=== PATIENT | female | born 1990 | race Caucasian/White ===

== ENCOUNTER 2022-10-07 21:29 | Outpatient (REF) | payer OTHER, SELFPAY ==
[2022-10-16 14:09] LABS: Age Gdln ACOG Testing Note (.); HPV Aptima Negative (Negative); IGP, Aptima HPV, rfx 16/18,45 Note (.)
== END 2022-10-07 21:30 | disposition home or self-care (01) ==
LOC: LAB 21:29
PROVIDERS: PCP Family Medicine; Visit Provider Physician Assistant
DX: Z01.419 Encounter for gynecological examination (general) (routine) without abnormal findings (principal)
CPT/HCPCS: 87624; G0145

== ENCOUNTER 2024-02-23 08:08 | Outpatient (OUT) | payer MEDICAID, OTHER, SELFPAY ==
--- NOTE | 2024-02-23 09:07 | P.GSHP_ITS ---
History of Present Illness History of Present Illness Chief complaint: RIGHT WRIST GANGLION CYST Narrative: Patient presents for presurgical testing. Please see HPI from Dr. Koo dated February 16, 2024. Review of Systems ROS Narrative REVIEW OF SYSTEMS: Negative except as stated in HPI, ten or more systems reviewed. Constitutional: No fever, chills, weakness ENT: No sore throat or epistaxis Cardiovascular: No edema, chest pain, palpitations, or activity intolerance Respiratory: No shortness of breath, cough, or wheezing Gastrointestinal: Chronic abdominal pain, constipation, and nausea Genitourinary: No dysuria or hematuria Neurological: No numbness, tingling, weakness, or headache Psychiatric: No mood changes [facility] Medical History (Updated 02/23/24 @ 09:08 by Hawa Pantoja NP) Ganglion cyst of wrist ?M67.439 - Ganglion, unspecified wrist (ICD-10) Neurologic abnormality ?R29.818 - Other symptoms and signs involving the nervous system (ICD-10) Paresthesias ?R20.2 - Paresthesia of skin (ICD-10) Syncope ?R55 - Syncope and collapse (ICD-10) POTS (postural orthostatic tachycardia syndrome) ?G90.A - Postural orthostatic tachycardia syndrome [POTS] (ICD-10) COVID-19 long hauler ?U09.9 - Post COVID-19 condition, unspecified (ICD-10) Urinary frequency ?R35.0 - Frequency of micturition (ICD-10) Abdominal pain ?R10.9 - Unspecified abdominal pain (ICD-10) ADHD ?F90.9 - Attention-deficit hyperactivity disorder, unspecified type (ICD-10) Anemia (2016) ?D64.9 - Anemia, unspecified (ICD-10) Depression ?F32.A - Depression, unspecified (ICD-10) Anxiety ?F41.9 - Anxiety disorder, unspecified (ICD-10) COVID-19 (2020) ?U07.1 - COVID-19 (ICD-10) Vertigo ?R42 - Dizziness and giddiness (ICD-10) Migraine ?G43.909 - Migraine, unspecified, not intractable, without status migrainosus (ICD-10) Pelvic pain ?R10.2 - Pelvic and perineal pain (ICD-10) Seasonal allergies ?J30.2 - Other seasonal allergic rhinitis (ICD-10) Ureteral stone ?N20.1 - Calculus of ureter (ICD-10) Kidney stones ?N20.0 - Calculus of kidney (ICD-10) Hypertension ?I10 - Essential (primary) hypertension (ICD-10) Palpitations ?R00.2 - Palpitations (ICD-10) IBS (irritable bowel syndrome) ?K58.9 - Irritable bowel syndrome, unspecified (ICD-10) GERD (gastroesophageal reflux disease) ?K21.9 - Gastro-esophageal reflux disease without esophagitis (ICD-10) Constipation ?K59.00 - Constipation, unspecified (ICD-10) Postoperative nausea and vomiting ?R11.2 - Nausea with vomiting, unspecified (ICD-10) ?Z98.890 - Other specified postprocedural states (ICD-10) S/P extracorporeal shock wave therapy ?Z98.890 - Other specified postprocedural states (ICD-10) Surgical History (Updated 02/23/24 @ 08:46 by Hawa Pantoja NP) History of colonoscopy ?Z98.890 - Other specified postprocedural states (ICD-10) History of esophagogastroduodenoscopy (EGD) ?Z98.890 - Other specified postprocedural states (ICD-10) History of breast biopsy ?Z98.890 - Other specified postprocedural states (ICD-10) History of wisdom tooth extraction ?K08.409 - Partial loss of teeth, unspecified cause, unspecified class (ICD- 10) S/P ureteral stent placement ?Z96.0 - Presence of urogenital implants (ICD-10) History of carpal tunnel release ?Z98.890 - Other specified postprocedural states (ICD-10) History of hysterectomy ?Z90.710 - Acquired absence of both cervix and uterus (ICD-10) Family History (Updated 02/23/24 @ 08:46 by Hawa Pantoja NP) Other Family history of aneurysm Family history of breast cancer Family history of hypertension Family history of myocardial infarction Family history of renal failure Family history of seizures Social History (Updated 02/23/24 @ 08:36 by Hawa Pantoja NP) Within the past year, how often did you have a drink containing alcohol: never Score interpretation: A score less than 3 is consistent with normal alcohol consumption. Smoking status: Former smoker Non-prescribed substance use: denies use Previous occupational history: [employer] Highest level of school completed/degree received: some college, no degree Meds Home Medications and Allergies Home Medications ?Medication ?Instructions ?Recorded ?Confirmed ?Type atomoxetine 25 mg capsule 25 mg PO DAILY 02/23/24 02/23/24 History (Strattera) cholecalciferol (vitamin D3) 125 125 mcg PO DAILY 02/23/24 02/23/24 History mcg (5,000 unit) capsule coenzyme Q10 200 mg capsule (Co 200 mg PO DAILY 02/23/24 02/23/24 History Q-10) conjugated estrogens 0.9 mg tablet 0.9 mg PO DAILY 02/23/24 02/23/24 History (Premarin) hyoscyamine sulfate 0.125 mg tablet 0.125 mg PO Q4H PRN dyspepsia 02/23/24 02/23/24 History methocarbamol 500 mg tablet 500 mg PO BID PRN muscle spasm 02/23/24 02/23/24 History multivitamin (Daily Multi-Vitamin 1 tab PO DAILY 02/23/24 02/23/24 History tablet) omega 9-aoc-ltz-fish oil 1,200 mg 1 cap PO DAILY 02/23/24 02/23/24 History (144 mg-216 mg) capsule (Fish Oil) ondansetron 4 mg disintegrating 4 mg PO Q8H PRN nausea and vomiting 02/23/24 02/23/24 History tablet propranolol 60 mg capsule,24 60 mg PO Q24H 02/23/24 02/23/24 History hr,extended release vitamin b12 gummy 02/23/24 History Allergies Allergy/AdvReac Type Severity Reaction Status Date / Time adhesive tape Allergy Rash Verified 02/23/24 08:29 morphine Allergy tachycardia Verified 02/23/24 08:29 sulfamethoxazole (From Allergy Hives Verified 02/23/24 08:29 Bactrim) trimethoprim (From Bactrim) Allergy Hives Verified 02/23/24 08:29 Exam Narrative Exam Narrative: Constitutional: Awake, alert, comfortable, well-appearing, nontoxic, interactive, vital signs as charted Head: Normocephalic, atraumatic Neck: Supple, normal appearance, normal range of motion, no meningeal signs, no lymphadenopathy Respiratory: No respiratory distress, breath sounds clear Cardiovascular: Regular rate and rhythm, strong and regular heart tones Skin: No rashes or induration, no lesions, only visible skin inspected Neuro: No neurological deficits, normal sensation Psychiatric: Oriented ?3, normal affect Assessment and Plan Assessment and Plan (1) Ganglion cyst of wrist: Plan Right wrist ganglion cyst excision scheduled with Dr. Koo February 28, 2024.
== END 2024-02-23 08:09 | disposition home or self-care (01) ==
LOC: PST 08:12
PROVIDERS: PCP Family Medicine; Visit Provider Orthopaedic Surgery
DX: Z01.818 Encounter for other preprocedural examination (principal); M67.431 Ganglion, right wrist
CPT/HCPCS: G0463

== ENCOUNTER 2024-02-28 11:59 | Day surgery (SDC) | payer MEDICAID, OTHER, SELFPAY ==
[2024-02-23 09:00] VITALS: BP 124/79; PULSE 77; TEMP 36.2; O2SAT 100; BMI 23.9
--- OUTSIDE RECORDS SUMMARY | 2024-02-28 12:05 | XMS_ITS | CCD ---
Author Organization [facility] Care Team Providers Care Crystal Calibrator Name Role Phone CECI GRADY Attending Unavailable CRYS OGLESBY Referring Unavailable CECI GRADY Attending Unavailable CRYS OGLESBY Referring Unavailable Siobhan Evangelista MD Unavailable Siobhan Evangelista MD Unavailable MD Siobhan Evangelista Primary Care Provider Al MD Stanislav Hardy Admit Provider DO Padmini Moreno Attending Provider MD Liv Townsend Other Provider DO Gavin Lacey Other Provider Siobhan Evangelista MD Unavailable SARAH Mae Emergency Provider Siobhan Evangelista MD Primary Care Provider [phone] Siobhan Evangelista MD Unavailable Siobhan Evangelista MD Primary Care Provider [phone] Siobhan Evangelista Primary Care Unavailable Carlito Mae Attending Unavailable Carlito Mae Admitting Unavailable Al Stainslav Hardy Admitting Unavailab le Siobhan Evangelista Primary Care Unavailable Padmini Moreno Attending Unavailable Liv Townsend Consulting Unavailable Gavin Lacey Consulting Unavailable TONJA Charles, DR MCCANN Consulting Unavailable TONJA Charles, DR MCCANN Attending Unavailable TONJA ., DR MCCANN Admitting Unavailable TONJA Charles, DR MCCANN Primary Care Unavailable JOSH ., DR MCCORD Consulting Unavailable JOSH ., DR MCCORD Attending Unavailable JOSH ., DR MCCORD Admitting Unavailable HOY ., DR MCCANN Primary Care Unavailable LOAN SAMAYOA Unavailable MISC, DR SHANNON Attending Unavailable MISC, DR SHANNON Admitting Unavailable MISC, DR SHANNON Consulting Unavailable HOY ., DR MCCANN Primary Care Unavailable ZIEBER, DR FLACO Ryan Consulting Unavailable GLAJAMES CALLAWAY Consulting Unavailable HOY ., DR MCCANN Primary Care Unavailable MISC, DR SHANNON Attending Unavailable WEST, DR LOAN Ricardo Consulting Unavailable MISC, DR SHANNON Admitting Unavailable MISC, DR SHANNON Consulting Unavailable ZIEBER, DR FLACO Ryan Consulting Unavailable HOY ., DR MCCANN Primary Care Unavailable HOY ., DR MCCANN Consulting Unavailable HOY ., DR MCCANN Attending Unavailable HOY ., DR MCCANN Admitting Unavailable ZIEBER, DR FLACO Ryan Consulting Unavailable Siobhan Evangelista MD Unavailable Siobhan Evangelista MD Unavailable Siobhan Evangelista MD Primary Care Provider [phone] Siobhan Evangelista MD Unavailable Siobhan Evangelista MD Primary Care Provider [phone] Siobhan Evangelista MD Unavailable FLEX MORENO Attending Unavailable Siobhan Evangelista MD Primary Care Provider [phone] Irina Finley DO Unavailable Siobhan Evangelista MD Primary Care Provider [phone] MARCELA, RITA Referring Unavailable IRINA FINLEY Attending Unavailabl e TONJA, SIOBHAN M Primary Care Unavailable IRINA FINLEY Referring Unavailabl e TONJA, SIOBHAN M Primary Care Unavailable IRINA FINLEY Referring Unavailabl e MAMTAY, SIOBHAN M Primary Care Unavailable IRINA FINLEY Referring Unavailabl e IRINA FINLEY Attending Unavailabl e MAMTAY, SIOBHAN M Primary Care Unavailable BROCK WANG Attending Unavailable SELF Referring Unavailable HOY, SIOBHAN M Primary Care Unavailable LOCHAN, EITAN JORDAN Referring Unavaila ble HOY, SIOBHAN M Primary Care Unavailable LOCHAN, EITAN JORDAN Referring Unavaila ble HOY, SIOBHAN M Primary Care Unavailable SHARLENE KOHLI Attending Unavailable BROCK WANG Attending Unavailable LOCHAN, EITAN NIKKI Referring Unavaila ble HOY, SIOBHAN M Primary Care Unavailable LOCHAN, EITANJIMMY JORDAN Referring Unavaila ble HOY, SIOBHAN M Primary Care Unavailable LOCHAN, EITANJIMMY JORDAN Referring Unavaila ble HOY, SIOBHAN M Primary Care Unavailable LOCHAN, EITAN NIKKI Attending Unavaila ble HOY, SIOBHAN M Referring Unavailable HOY, SIOBHAN M Primary Care Unavailable LOCHAN, EITANJIMMY JORDAN Referring Unavaila ble HOY, SIOBHAN M Primary Care Unavailable LOCHAN, EITANJIMMY JORDAN Referring Unavaila ble HOY, SIOBHAN M Primary Care Unavailable JHOANA DAILY Attending Unavailable ORTEGA VALERA Referring Unavailable HOY, SIOBHAN M Primary Care Unavailable BRUJAMES VASQUEZ Referring Unavailable HOY, SIOBHAN M Primary Care Unavailable JAMES NOBLE Referring Unavailable JAMES ONBLE Attending Unavailable HOY, SIOBHAN M Primary Care Unavailable SELF Referring Unavailable BROCK WANG Attending Unavailable HOY, SIOBHAN M Primary Care Unavailable RITA DOUGHERTY Referring Unavailable HOY, SIOBHAN M Primary Care Unavailable MARIO FIGUEROA Attending Unavailable HOY, SIOBHAN M Referring Unavailable HOY, SIOBHAN M Primary Care Unavailable CRYS OGLESBY Referring Unavailable RENY, CRYS Perdomo Primary Care Unavailable CRYS OGLESBY Referring Unavailable RENY, CRYS Perdomo Primary Care Unavailable CRYS OGLESBY Referring Unavailable RENY, CRYS Perdomo Primary Care Unavailable CRYS OGLESBY Referring Unavailable RENY, CRYS J Primary Care Unavailable LOCARMAND, EITANJIMMY JORDAN Referring Unavaila ble HOY, SIOBHAN M Primary Care Unavailable HOY, SIOBHAN M Primary Care Unavailable AGUSTO CLARK Attending Unavailable AGUSTO CLARK Attending Unavailable AGUSTO CLARK Referring Unavailable HOY, SIOBHAN M Primary Care Unavailable HOY, SIOBHAN M Referring Unavailable HOY, SIOBHAN M Primary Care Unavailable HOY, SIOBHAN M Referring Unavailable HOY, SIOBHAN M Primary Care Unavailable HOY, SIOBHAN M Referring Unavailable HOY, SIOBHAN M Primary Care Unavailable LOCHAN, EITAN ARUNA Referring Unavaila ble HOY, SIOBHAN M Primary Care Unavailable HOY, SIOBHAN M Referring Unavailable HOY, SIOBHAN M Primary Care Unavailable Allergies Allergy Classification Reported Allergen(s) Allergy Type Date of Onset Reaction(s) Facility (2 sources) Sulfamethoxazole / Trimethoprim; Translations: [Bactrim] Drug Allergy 08-16-20 16 [facility] Repository (1 source) Sulfonamides (Antibiotic); Translations: [sulfa drugs] Propensity to adverse reactions to drug (disorder) [facility] Repository (20 sources) Sulfamethoxazole / Trimethoprim; Translations: [SULFAMETHOXAZOLE-T RIMETHOPRIM] Drug Allergy 02-26-20 16 [facility] Work Phone: (20 sources) Sulfonamides (Antibiotic); Translations: [SULFA (SULFONAMIDE ANTIBIOTICS)] Drug Allergy 02-26-20 16 [facility] Work Phone: (3 sources) Sulfamethoxazole; Translations: [sulfamethoxazole] Drug Allergy 12-12-19 [facility] (3 sources) Trimethoprim; Translations: [trimethoprim] Drug Allergy 12-12-19 [facility] (20 sources) Adhesive Tape-Silicones; Translations: [ADHESIVE TAPE-SILICONES] Drug Intolerance 01-23-20 22 [facility] (1 source) Sulfonamides (Antibiotic) Drug allergy (disorder) 01-22-20 22 [facility] Repository (1 source) Desonide Drug Allergy 11-04-19 19 [facility] Repository (20 sources) Morphine; Translations: [MORPHINE] Drug Allergy 08-04-19 23 Other: See Comments, [facility] Medic[facility] Current Medications Medication Drug Class(es) Dates Sig (Normalized) Sig (Original) aspirin 81 mg delayed release oral tablet (1 source) Platelet Aggregation Inhibitor, Nonsteroidal Anti-inflammatory Drug take 1 tablet by mouth in the morning aspirin 81 mg Take 1 tablet (81 mg total) by mouth in the morning. 30 tablet 11 Active atomoxetine 40 mg oral capsule (6 sources) Norepinephrine Reuptake Inhibitor Start: 01-24-2024 take 1 capsule by mouth once daily atomoxetine (STRATTERA) 40 mg capsule Take 40 mg by mouth once daily. 01/24/2024 Active cetirizine hydrochloride 10 mg oral capsule (1 source) Histamine-1 Receptor Antagonist End: 06-03-2023 take 1 capsule by mouth once daily Cetirizine (ZYRTEC) 10 mg cap Take 10 mg by mouth once daily. 0 06/03/2023 Discontinued (Course of therapy completed) Comment on above: Take 10 mg by mouth once daily. cyanocobalamin/junior mamide (B12 SUBLINGUAL) (12 sources) cyanocobalamin/c o bamamide (B12 SUBLINGUAL) Dissolve under the tongue. Active cyanocobalamin/c obamamide (B12 SUBLINGUAL) Dissolve under the tongue. 0 Active diphenhydrAMINE hydrochloride 25 mg oral capsule (1 source) Histamine-1 Receptor Antagonist take 2 capsules by mouth every six hours as needed diphenhydrAMINE (BENADRYL) 25 mg capsule Take 2 capsules (50 mg total) by mouth every 6 (six) hours as needed for itching. Active iv contrast (will be provided with radiology test) (6 sources) Start: 2023 End: 2023 inject 1 dose intravenously once iv contrast (will be provided with radiology test) MRI Brain Inject, intravenously, once for 1 dose.No IV access, insert saline lock prior to beginning of sedation, infusion, injection of imaging exam.Discontinue saline lock post exam. If Pt. has a central line or IVAD, may access for administration according to line specific nursing protocol.Once exam is complete flush line and de-access according to line specific nursing protocol in the MR contrast administration guidelines link 1 Each 02/07/2024 02/08/2024 Active Start: 05-29-2022 End: 05-30-2022 iv contrast (will be provide d with radiology test) MRV Brain Inject, intravenously, once for 1 dose. No IV access, insert saline lock prior to the beginning of sedation, infusion, injection of imaging exam. Discontinue saline lock post exam. If Pt. has a central line or IVAD, may access for administration according to line specific nursing protocol. Once exam is complete flush line and de-access according to line specific nursing protocol in the MR contrast administration guidelines link. 1 Each 0 05/29/2022 05/30/2022 Active Start: 05-29-2022 End: 05-30-2022 inject 1 dose intravenously once iv contrast (will be provided with radiology test) MRI Brain Inject, intravenously, once for 1 dose.No IV access, insert saline lock prior to beginning of sedation, infusion, injection of imaging exam.Discontinue saline lock post exam. If Pt. has a central line or IVAD, may access for administration according to line specific nursing protocol.Once exam is complete flush line and de-access according to line specific nursing protocol in the MR contrast administration guidelines link 1 Each 0 05/29/2022 05/30/2022 Active Start: 09-03-2021 End: 09-04-2021 iv contrast (will be provide d with radiology test) MRI CSP Inject, intravenously, once for 1 dose. No IV access, insert saline lock prior to the beginning of sedation, infusion, injection of imaging exam. Discontinue saline lock post exam. If Pt. has a central line or IVAD, may access for administration according to line specific nursing protocol. Once exam is complete flush line and de-access according to line specific nursing protocol in the MR contrast administration guidelines link. 1 Each 0 09/03/2021 09/04/2021 Active Start: 09-03-2021 End: 09-04-2021 inject 1 dose intravenously once iv contrast (will be provided with radiology test) MRI TSP Inject, intravenously, once for 1 dose. No IV access, insert saline lock prior to the beginning of sedation, infusion, injection of imaging exam. Discontinue saline lock post exam. If Pt. has a central line or IVAD, may access for administration according to line specific nursing protocol. Once exam is complete flush line and de-access according to line specific nursing protocol in the MR contrast administration guidelines link. 1 Each 0 09/03/2021 09/04/2021 Active Start: 09-03-2021 End: 09-04-2021 iv contrast (will be provide d with radiology test) MRI LSP Inject, intravenously, once for 1 dose. No IV access, insert saline lock prior to the beginning of sedation, infusion, injection of imaging exam. Discontinue saline lock post exam. If Pt. has a central line or IVAD, may access for administration according to line specific nursing protocol. Once exam is complete flush line and de-access according to line specific nursing protocol in the MR contrast administration guidelines link. 1 Each 0 09/03/2021 09/04/2021 Active Comment on above: MRI CSP Inject, intr avenously, once for 1 dose. No IV access, insert saline lock prior to the beginning of sedation, infusion, injection of imaging exam. Discontinue saline lock post exam. If Pt. has a central line or IVAD, may access for administration according to line specific nursing protocol. Once exam is complete flush line and de-access according to line specific nursing protocol in the MR contrast administration guidelines link. MRI TSP Inject, intr avenously, once for 1 dose. No IV access, insert saline lock prior to the beginning of sedation, infusion, injection of imaging exam. Discontinue saline lock post exam. If Pt. has a central line or IVAD, may access for administration according to line specific nursing protocol. Once exam is complete flush line and de-access according to line specific nursing protocol in the MR contrast administration guidelines link. MRI LSP Inject, intr avenously, once for 1 dose. No IV access, insert saline lock prior to the beginning of sedation, infusion, injection of imaging exam. Discontinue saline lock post exam. If Pt. has a central line or IVAD, may access for administration according to line specific nursing protocol. Once exam is complete flush line and de-access according to line specific nursing protocol in the MR contrast administration guidelines link. MRV Brain Inject, in travenously, once for 1 dose. No IV access, insert saline lock prior to the beginning of sedation, infusion, injection of imaging exam. Discontinue saline lock post exam. If Pt. has a central line or IVAD, may access for administration according to line specific nursing protocol. Once exam is complete flush line and de-access according to line specific nursing protocol in the MR contrast administration guidelines link. MRI Brain Inject, in travenously, once for 1 dose.No IV access, insert saline lock prior to beginning of sedation, infusion, injection of imaging exam.Discontinue saline lock post exam. If Pt. has a central line or IVAD, may access for administration according to line specific nursing protocol.Once exam is complete flush line and de-access according to line specific nursing protocol in the MR contrast administration guidelines link methocarbamol 500 mg oral tablet (15 sources) Muscle Relaxant Start: 2023 take 1 tablet by mouth every twelve hours as needed methocarbamol (ROBAXIN) 500 mg tablet Take 1 tablet by mouth two times a day as needed. 45 tablet 2 05/03/2023 Active Comment on above: Take 1 tablet by nita th two times a day as needed. methylPREDNISolone 4 mg oral tablet (1 source) Corticosteroid Start: 2023 take 1 tablet by mouth in the morning methylPREDNISolone (MEDROL, JAY,) 4 mg tablet Take 1 tablet (4 mg total) by mouth in the morning. follow package directions. 21 tablet 09/01/2023 Active nortriptyline 10 mg oral capsule (2 sources) Tricyclic Antidepressant Start: 2023 take 1 capsule by mouth once daily at bedtime nortriptyline (PAMELOR) 10 mg capsule Indications: Chronic migraine w/o aura w/o status migrainosus, not intractable Take 1 capsule by mouth daily at bedtime. 30 capsule 2 02/18/2024 Active Cgcel-8-RWX-EPA-Fish Oil (FISH OIL) 1,000 mg (120 mg-180 mg) cap (12 sources) Start: 2023 Wkiaz-9-LWY-EPA-Fish Oil (FISH OIL) 1,000 mg (120 mg-180 mg) cap 04/23/2023 Active Start: 04-23-2023 Jeqhz-6-YIK-EP A-Fish Oil (FISH OIL) 1,000 mg (120 mg-180 mg) cap ondansetron 4 mg disintegrating oral tablet (1 source) Serotonin-3 Receptor Antagonist Start: 01-19-2023 take 1 tablet by mouth every eight hours as needed for nausea and vomiting and nausea and nausea ondansetron ODT (ZOFRAN ODT) 4 mg disintegrating tablet Indications: Nausea Dissolve 1 tablet (4 mg total) on tongue every 8 (eight) hours as needed for nausea or vomiting. 60 tablet 2 01/19/2023 Active OXcarbazepine 150 mg oral tablet (20 sources) Anti-epileptic Agent Start: 12-12-2021 take 150 mg by mouth twice daily Oxcarbazepine Active 150 MG PO Twice daily 60 December 12, 2021 12:00am Start: 12-11-2021 End: 12-12-2021 take 300 mg by mouth twice daily Oxcarbazepine Discontinued 300 MG PO Twice daily December 11, 2021 12:00am December 12, 2021 3:44pm End: 05-29-2022 take 2 tablets by mouth twice daily OXcarbazepine (TRILEPTAL) 150 mg tablet Take 300 mg by mouth twice daily. 0 05/29/2022 Discontinued (Course of therapy completed) Comment on above: Take 150 mg by mouth twice daily. Take 300 mg by mouth twice daily. PROGESTERONE, BULK, MISC (1 source) PROGESTERONE, BU LK, MISC by miscellaneous route. Active 24 hr propranolol hydrochloride 60 mg extended release oral capsule (17 sources) beta-Adrenergic Shilpi Start: take 1 capsule by mouth once daily propranolol ER (INDERAL LA) 60 mg 24 hr capsule take 1 capsule by mouth every day 90 capsule 2 10/11/2023 Active Start: 05-03-2023 End: 10-02-2023 take 1 capsule by mouth once daily propranolol ER (INDERAL LA) 60 mg 24 hr capsule Take 1 capsule by mouth once daily. 30 capsule 2 07/04/2023 10/02/2023 Active Comment on above: Take [address] [facility] once daily. rizatriptan 5 mg oral tablet (1 source) Serotonin-1b and Serotonin-1d Receptor Agonist Start: 05-11-19 End: 06-03-19 24 take 1 tablet by mouth every two hours as needed rizatriptan (MAXALT) 5 mg tablet Take 1 tablet (5 mg) by mouth as needed. May repeat dose after 2 hours if needed. Maximum daily dose is 15 mg per day. 10 tablet 2 05/11/2023 06/03/2023 Discontinued (Course of therapy completed) Comment on above: Take 1 tablet (5 mg) by mouth as needed. May repeat dose after 2 hours if needed. Maximum daily dose is 15 mg per day. tiZANidine 4 mg oral tablet (20 sources) Central alpha-2 Adrenergic Agonist Start: 08-20-19 22 tiZANidine (ZANAFLEX) 4 mg tablet Take 1 tablet (4 mg total) by mouth. Taking 2 tablets qd 01/12/2022 Active Comment on above: TAKE 1/2 TO 1 (ONE-H FPC TO ONE) TABLET BY MOUTH EVERY DAY AT BEDTIME FOR 30 DAYS Take 4 mg by mouth d aily at bedtime. triamcinolone acetonide 5 mg/ml topical cream (1 source) Corticosteroid Start: 10-17-19 23 triamcinolone (KENALOG) 0.5 % cream Indications: Allergic contact dermatitis due to adhesives Apply 1 Application topically in the morning and 1 Application before bedtime. 30 g 10/16/2022 Active ubiquinol (12 sources) COQ10, UBIQUINOL , ORAL Take by mouth. Active COQ10, UBIQUINOL , ORAL Take by mouth. 0 Active zinc acetate 50 mg oral capsule (1 source) End: 06-03-2023 Zinc Acetate, Oral, 50 mg (zinc) cap Take 50 capsules by mouth once daily. 0 06/03/2023 Discontinued (Course of therapy completed) Comment on above: Take 50 capsules by mouth once daily. Completed/Discontinued Medications Medication Drug Class(es) Dates Sig (Normalized) Sig (Original) acetaminophen 325 mg / butalbital 50 mg / caffeine 40 mg oral tablet (13 sources) Barbiturate, Central Nervous System Stimulant, Methylxanthine Start: 08-14-2021 End: 01-22-2022 take 1 tablet by mouth three times daily acetaminophen 325 mg-caffeine 40 mg-butalbital 50 mg (FIORICET) per tablet Take 1 tablet by mouth three times daily. 0 08/14/2021 01/22/2022 Discontinued Start: 08-14-2021 take 1 tablet by nita th every six hours as needed acetaminophen 325 mg-caffeine 40 mg-butalbital 50 mg (FIORICET) per tablet TAKE 1 TABLET BY MOUTH EVERY 6 HOURS NEEDED FOR MIGRAINE FOR 7 DAYS 0 08/14/2021 Active Comment on above: TAKE 1 TABLET BY NITA TH EVERY 6 HOURS NEEDED FOR MIGRAINE FOR 7 DAYS Take 1 tablet by nita th three times daily. acetaminophen 325 mg / HYDROcodone bitartrate 5 mg oral tablet (20 sources) Opioid Agonist Start: 2 End: 2 take 1 tablet by mouth every six hours Hydrocodone-Acetamino phen Discontinued 1 TAB PO Q6H December 11, 2021 12:00am January 21, 2022 5:22pm End: 05-29-2022 take 1 tablet by mouth every eight hours as needed HYDROcodone-acetaminophen (NORCO) 5-325 mg per tablet Take 1 tablet by mouth every 8 hours as needed for pain. 0 05/29/2022 Discontinued (Course of therapy completed) Comment on above: Take 1 tablet by nita th every 8 hours as needed for pain. acetaZOLAMIDE 250 mg oral tablet (4 sources) Carbonic Anhydrase Inhibitor Start: 05-29-19 End: 07-13-19 take 1 tablet by mouth twice daily, then take 2 tablets by mouth twice daily acetaZOLAMIDE (DIAMOX) 250 mg tablet Take 1 tablet by mouth twice daily for 14 days, THEN 2 tablets twice daily. 148 tablet 2 05/29/2022 Active Comment on above: Take 1 tablet by nita th twice daily for 14 days, THEN 2 tablets twice daily. 24 hr buPROPion hydrochloride 150 mg extended release oral tablet (14 sources) Aminoketone End: 05-29-19 take 1 tablet by mouth once daily buPROPion XL (WELLBUTRIN XL) 150 mg 24 hr tablet Take 150 mg by mouth once daily. 0 05/29/2022 Discontinued (Course of therapy completed) Comment on above: Take 150 mg by mouth once daily. estrogens, conjugated (residential) 0.625 mg oral tablet (20 sources) Estrogen Start: 01-21-20 End: 02-02-20 take 1 tablet by mouth once daily in the morning estrogens conjugated (PREMARIN) 0.625 mg tablet Take 1 tablet by mouth every morning. 01/20/2023 02/02/2024 Discontinued (Discontinued by Patient) take 1 tablet by mouth once mitesh y PREMARIN 0.9 mg tablet Take 0.9 mg by mouth once daily. Active Comment on above: Take 1 tablet by nita th every morning. Ethinyl Estradiol / norgestimate (8 sources) Progestin, Estrogen Start: 9 End: 2 take 1 tablet by mouth once daily Norgestimate-Ethinyl Estradiol 0.18/0.215/0.25 mg-25 mcg Take 1 tablet by mouth once daily. 0 07/14/2018 12/30/2021 Discontinued (Other) Start: 07-14-2018 take 1 tablet by nita th once daily Norgestimate-Ethinyl Estradiol 0.18/0.215/0.25 mg-25 mcg Take 1 tablet by mouth once daily. 0 07/14/2018 Active Comment on above: Take 1 tablet by nita th once daily. fludrocortisone acetate 0.1 mg oral tablet (7 sources) Start: 3 End: 4 take 1 tablet by mouth twice daily fludrocortisone (FLORINEF) 0.1 mg tablet 1 tablet Orally BID for 30 days 0 03/22/2023 08/17/2023 Discontinued (Discontinued by Patient) Start: 12-29-2021 End: 02-16-2022 take 1 tablet by mouth three times daily fludrocortisone (FLORINEF) 0.1 mg tablet Take 0.1 mg by mouth three times daily. 0 12/29/2021 02/16/2022 Discontinued (Course of therapy completed) Comment on above: Take 0.1 mg by mouth three times daily. fludrocortisone oral liquid 0.1 mg/mL (CPD) (4 sources) End: take 0.1 mg by mouth twice daily fludrocortisone oral liquid 0.1 mg/mL (CPD) Take 0.1 mg by mouth two times a day. 0 08/17/2023 Discontinued (Discontinued by Patient) take 0.1 mg by mouth twice daily fludrocortisone oral liquid 0.1 mg/mL (CPD) Take 0.1 mg by mouth two times a day. 0 Active Comment on above: Take 0.1 mg by mouth two times a day. Folic Acid (7 sources) End: 02-02-2024 FOLIC ACID ORAL Take by mouth. 02/02/2024 Discontinued (Discontinued by Patient) FOLIC ACID ORAL Take by mouth. 0 Active gabapentin 300 mg oral capsule (20 sources) Anti-epileptic Agent Start: 12-12-2021 take 1 capsule by mouth three times daily gabapentin (NEURONTIN) 300 mg capsule Take 300 mg by mouth three times daily. 0 12/12/2021 Active Comment on above: Take 300 mg by mouth three times daily. ivabradine 5 mg oral tablet (18 sources) Hyperpolarization-act ivated Cyclic Nucleotide-gated Channel Shilpi Start: 02-06-2022 take 1 tablet by mouth twice daily at bedtime CORLANOR 5 mg tablet TAKE 1 TABLET BY MOUTH TWICE DAILY IN THE MORNING AND BEFORE BEDTIME 0 02/06/2022 Active Comment on above: TAKE 1 TABLET BY NITA TH TWICE DAILY IN THE MORNING AND BEFORE BEDTIME Magnesium (7 sources) End: 12-30-2021 MAGNESIUM ORAL Take 120 mg by mouth. 0 12/30/2021 Discontinued MAGNESIUM ORAL T eufemia 120 mg by mouth. 0 Active Comment on above: Take 120 mg by mouth . 24 hr metoprolol succinate 25 mg extended release oral tablet (10 sources) beta-Adrenergic Shilpi Start: 12-13-19 End: 02-17-20 take 1 tablet by mouth once daily metoprolol succinate ER (TOPROL XL) 25 mg 24 hr tablet Take 25 mg by mouth once daily. 0 12/12/2021 02/16/2022 Discontinued (Course of therapy completed) Comment on above: Take 25 mg by mouth once daily. metroNIDAZOLE 500 mg oral tablet (1 source) Nitroimidazole Antimicrobial Start: 10-10-19 End: 08-17-19 take 1 tablet by mouth three times daily metroNIDAZOLE (FLAGYL) 500 mg tablet 1 tablet Orally Three times a day for 10 0 10/09/2022 08/17/2023 Discontinued (Discontinued by Patient) midodrine hydrochloride 2.5 mg oral tablet (7 sources) alpha-Adrenergic Agonist Start: 02-03-20 midodrine (PROAMATINE) 2.5 mg tablet Take 2.5 mg by mouth as directed. When SBP 0 02/08/2023 Active End: 02-16-2022 take 1 tablet by mouth three times daily midodrine (PROAMATINE) 2.5 mg tablet Take 2.5 mg by mouth three times daily. 0 02/16/2022 Discontinued (Course of therapy completed) Comment on above: Take 2.5 mg by mouth three times daily. Take 2.5 mg by mouth as directed. When SBP <100 omeprazole 40 mg delayed release oral capsule (2 sources) Proton Pump Inhibitor Start: 01-26-20 End: 08-17-19 take 1 capsule by mouth once daily omeprazole (PRILOSEC) 40 mg capsule 1 capsule 30 minutes before morning meal Orally Once a day for 90 days 0 08/20/2022 08/17/2023 Discontinued (Discontinued by Patient) pantoprazole 40 mg delayed release oral tablet (20 sources) Proton Pump Inhibitor Start: 08-18-19 take 1 tablet by mouth once daily pantoprazole DR (PROTONIX) 40 mg tablet Take 40 mg by mouth once daily. 0 08/17/2021 Active Comment on above: Take 40 mg by mouth once daily. rimegepant 75 mg disintegrating oral tablet (20 sources) Start: 12-27-19 End: 08-17-19 take 1 tablet by mouth once daily as needed NURTEC ODT 75 mg disintegrating tablet Take 75 mg by mouth once daily as needed (Migraines). 0 12/26/2021 Active Comment on above: DISSOLVE 1 TABLET BY MOUTH ONCE DAILY Take 75 mg by mouth once daily as needed (Migraines). sertraline 50 mg oral tablet (8 sources) Serotonin Reuptake Inhibitor Start: 06-30-19 End: 12-31-19 sertraline (ZOLOFT) 50 mg tablet Take 75 mg by mouth q 12 HR. 0 06/30/2019 12/30/2021 Discontinued Comment on above: Take 75 mg by mouth q 12 HR. tamsulosin hydrochloride 0.4 mg oral capsule (5 sources) alpha-Adrenergic Shilpi Start: 06-21-19 tamsulosin ER (FLOMAX) 0.4 mg Take 0.4 mg by mouth as needed. 0 06/20/2018 Active Comment on above: Take 0.4 mg by mouth as needed. topiramate 25 mg oral tablet (5 sources) Start: 08-20-19 take 1 tablet by mouth twice daily topiramate (TOPAMAX) 25 mg tablet Take 25 mg by mouth twice daily. 0 08/19/2021 Active Comment on above: Take 25 mg by mouth twice daily. traZODone hydrochloride 100 mg oral tablet (8 sources) Serotonin Reuptake Inhibitor Start: 09-05-19 End: 12-31-19 traZODone (DESYREL) 100 mg tablet Take 50 mg by mouth once daily. SHE TAKES HALF A TABLET DAILY 0 09/05/2019 12/30/2021 Discontinued (Other) Comment on above: Take 50 mg by mouth once daily. SHE TAKES HALF A TABLET DAILY Problems Active Problems Problem Classification Problem Date Documented Da te Episodic/Chronic Abdominal hernia (1 source) Ventral hernia without obstruction or gangrene; Translations: [Ventral hernia without obstruction or gangrene] Onset: 02-11-2024 Episodic Abdominal pain (1 source) Unspecified abdominal pain; Translations: [Unspecified abdominal pain] Onset: 02-14-2024 Episodic Anxiety disorders (12 sources) Mixed anxiety and depressive disorder; Translations: [Other specified anxiety disorders] Onset: 07-25-2019 08-04-2023 Chronic Cardiac dysrhythmias (20 sources) Postural orthostatic tachycardia syndrome ; Translations: [POTS (postural orthostatic tachycardia syndrome)] Onset: 02-04-2022 Chronic Cardiac dysrhythmias (20 sources) Sinus tachycardia; Translations: [Tachycardia, unspecified] Onset: 12-11-2021 12-11-2021 Episodic Congestive heart failure; nonhypertensive (2 sources) Chronic systolic heart failure; Translations: [Chronic systolic (congestive) heart failure] Onset: 08-17-2023 02-10-2023 Chronic Disorders of lipid metabolism (20 sources) Hyperlipidemia; Translations: [Hyperlipidemia, unspecified] Onset: 06-28-2022 02-10-2023 Chronic Epilepsy; convulsions (1 source) Seizure; Translations: [Unspecified convulsions] Episodic Essential hypertension (5 sources) Elevated blood pressure; Translations: [Essential (primary) hypertension] Onset: 12-11-2021 12-11-2021 Chronic Headache; including migraine (20 sources) Refractory migraine with aura; Translations: [Migraine with aura, intractable, without status migrainosus] Onset: 08-06-2021 Chronic Headache; including migraine (4 sources) Headache; Translations: [[id number] syndrome manifesting as chronic headache] Episodic Headache; including migraine (1 source) Headache; including migraine; Translations: [Positional headache] Onset: 05-03-2023 Immunizations and screening for infectious disease (2 sources) Needs influenza immunization; Translations: [Encounter for immunization] Onset: 02-16-2024 02-16-2024 Episodic Malaise and fatigue (2 sources) Fatigue; Translations: [Chronic fatigue, unspecified] Onset: 04-20-2023 02-26-2023 Chronic Malaise and fatigue (2 sources) Fatigue; Translations: [Other post infection and related fatigue syndromes] 08-17-2023 Episodic Nervous system congenital anomalies (20 sources) Chiari malformation; Translations: [Arnold-Chiari syndrome without spina bifida or hydrocephalus] Onset: 02-10-2023 Chronic Nonmalignant breast conditions (1 source) Unspecified lump in unspecified breast; Translations: [Unspecified lump in unspecified breast] Onset: 02-22-2024 Episodic Other connective tissue disease (1 source) Unspecified symptoms and signs involving the nervous system; Translations: [Other symptoms involving nervous and musculoskeletal systems] Episodic Other connective tissue disease (1 source) Weakness of hand; Translations: [Other symptoms and signs involving the musculoskeletal system] Episodic Other female genital disorders (4 sources) Unspecified dyspareunia; Translations: [UNSPECIFIED DYSPAREUNIA] Onset: 06-03-2022 Chronic Other gastrointestinal disorders (1 source) Irritable bowel syndrome characterized by constipation; Translations: [Irritable bowel syndrome with constipation] 02-26-2023 Chronic Other gastrointestinal disorders (1 source) Irritable bowel syndrome with constipation; Translations: [Irritable bowel syndrome with constipation] Onset: 04-20-2023 Chronic Other gastrointestinal disorders (1 source) Dysphagia; Translations: [Dysphagia, unspecified] Episodic Other hereditary and degenerative nervous system conditions (1 source) Functional movement disorder; Translations: [Extrapyramidal and movement disorder, unspecified] Chronic Other infections; including parasitic (1 source) Late effects of other and unspecified infectious and parasitic diseases; Translations: [Post-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 (PASC)] 02-26-2023 Chronic Other infections; including parasitic (14 sources) Post-viral disorder; Translations: [Post-COVID syndrome] Onset: 04-21-2023 08-17-2023 Chronic Other lower respiratory disease (6 sources) Dyspnea; Translations: [Shortness of breath] 02-12-2023 Episodic Other lower respiratory disease (1 source) Cough; Translations: [Cough, unspecified type] 02-26-2023 Episodic Other nervous system disorders (1 source) Syringomyelia and syringobulbia; Translations: [Syringomyelia and syringobulbia] Chronic Other nervous system disorders (3 sources) Chiari malformation type I; Translations: [Compression of brain] Chronic Other nervous system disorders (4 sources) Compression of brain; Translations: [Compression of brain] Onset: 09-29-2021 12-12-2021 Chronic Other nervous system disorders (4 sources) Syringomyelia and syringobulbia; Translations: [SYRINGOMYELIA AND SYRINGOBULBIA] Onset: 09-12-2021 Chronic Other nervous system disorders (1 source) Poor concentration; Translations: [Attention and concentration deficit] 02-26-2023 Chronic Other nervous system disorders (2 sources) Attention and concentration deficit; Translations: [Difficulty concentrating] Onset: 04-20-2023 Chronic Other nervous system disorders (1 source) Tremor; Translations: [Tremor, unspecified] Episodic Other nervous system disorders (3 sources) Impaired cognition; Translations: [Other symptoms and signs involving cognitive functions and awareness] 02-26-2023 Episodic Other screening for suspected conditions (not mental disorders or infectious disease) (2 sources) Other abnormal and inconclusive findings on diagnostic imaging of breast; Translations: [Encounter for screening mammogram for malignant neoplasm of breast] Onset: 02-11-2024 Episodic Paralysis (20 sources) Paralysis; Translations: [Paralytic syndrome, unspecified] Onset: 01-22-2022 01-22-2022 Chronic Radha-; endo-; and myocarditis; cardiomyopathy (except that caused by tuberculosis or sexually transmitted disease) (1 source) Cardiomyopathy; Translations: [Other cardiomyopathies] 12-23-2022 Chronic Residual codes; unclassified (1 source) Memory impairment; Translations: [Other amnesia] 02-26-2023 Episodic Residual codes; unclassified (1 source) Activity intolerance; Translations: [Other general symptoms and signs] 02-26-2023 Episodic Residual codes; unclassified (1 source) Pain, unspecified; Translations: [Pain, unspecified] Onset: 02-22-2024 Episodic Spinal cord injury (13 sources) Central cord syndrome; Translations: [Central cord syndrome at unspecified level of cervical spinal cord, initial encounter] Onset: 08-04-2023 01-22-2022 Chronic Spondylosis; intervertebral disc disorders; other back problems (1 source) Other cervical disc degeneration at C6-C7 level; Translations: [OTHER CERVICAL DISC DEG C6-C7 LEVEL] Onset: 09-29-2021 Chronic Unclassified (1 source) Post-COVID syndrome; Translations: [Post-COVID syndrome] Onset: 02-02-2024 Unclassified (1 source) Other post infection and related fatigue syndromes; Translations: [Other post infection and related fatigue syndromes] Onset: 02-02-2024 Unclassified (1 source) POTS (postural orthostatic tachycardia syndrome); Translations: [POTS (postural orthostatic tachycardia syndrome)] Onset: 02-10-2023 Unclassified (1 source) Post-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 (PASC); Translations: [Post-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 (PASC)] Onset: 04-20-2023 Unclassified (1 source) Cough, unspecified type; Translations: [Cough, unspecified type] Onset: 04-20-2023 Unclassified (1 source) Headaches; Translations: [Headaches] Onset: 04-20-2023 Unclassified (1 source) Post covid-19 condition, unspecified; Translations: [Post covid-19 condition, unspecified] Onset: 04-21-2023 Past or Other Problems Problem Classification Problem Date Documented Da te Episodic/Chronic Calculus of urinary tract (12 sources) Kidney stone; Translations: [Calculus of kidney] Onset: 10-05-2022 08-04-2023 Episodic Conditions associated with dizziness or vertigo (3 sources) Orthostatic hypotension; Translations: [Dizziness and giddiness] Onset: 04-20-2023 Episodic Nonspecific chest pain (20 sources) Chest discomfort; Translations: [Other chest pain] Onset: 04-20-2023 02-26-2023 Episodic Other circulatory disease (12 sources) Elevated blood pressure; Translations: [Elevated blood-pressure reading, without diagnosis of hypertension] Onset: 12-11-2021 08-04-2023 Episodic Other circulatory disease (1 source) Other disorder of circulatory system; Translations: [Blood pressure instability] Onset: 06-03-2023 Episodic Other injuries and conditions due to external causes (4 sources) Other injury of unspecified body region, initial encounter; Translations: [OTHER INJURY UNS BODY REGION INIT] Onset: 11-14-2021 Episodic Other lower respiratory disease (1 source) Shortness of breath; Translations: [SOB (shortness of breath)] Onset: 08-27-2023 Episodic Other nervous system disorders (1 source) Anesthesia of skin; Translations: [Anesthesia of skin] Onset: 01-21-2022 Episodic Other nervous system disorders (4 sources) Other symptoms and signs involving cognitive functions and awareness; Translations: [Other signs and symptoms involving cognition] Onset: 04-20-2023 02-26-2023 Episodic Residual codes; unclassified (13 sources) History of syncope; Translations: [Personal history of other specified conditions] Onset: 06-28-2022 08-04-2023 Episodic Residual codes; unclassified (2 sources) Other amnesia; Translations: [Memory changes] Onset: 04-20-2023 Episodic Residual codes; unclassified (1 source) Other general symptoms and signs; Translations: [Activity intolerance] Onset: 04-20-2023 Episodic Spondylosis; intervertebral disc disorders; other back problems (5 sources) Cervical spine instability; Translations: [Spinal instabilities, cervical region] Onset: 04-20-2023 Episodic Syncope (20 sources) Syncope; Translations: [Syncope and collapse] Onset: 12-11-2021 12-11-2021 Episodic Results Test Name Value Interpretation Reference Range Facility MAMM SCREENING BILATERAL W C insurance verification rep 02-25-2024 MAMM SCREENING BILATERAL W CAD MAMM SCREENING BILATERAL W CAD PASTOR ALBERTS PINA 1990 [id number] EXAM: MAMM SCREENING BILATERAL W CAD, 02/11/2024 9:48 AM CLINICAL INDICATIONS: Screening, Encounter for screening mammogram for malignant neoplasm of breast COMPARISON: 01/26/2019 and 09/27/2019 TECHNIQUE: Bilateral digital tomosynthesis MLO and CC views of the breasts were obtained, with creation of synthetic 2D views. Computer aided detection was utilized. FINDINGS: The breasts are extremely dense, which lowers the sensitivity of mammography. There are no new suspicious masses, calcifications, or areas of architectural distortion. Previously biopsied fibroadenoma at 6:00 in the right breast unchanged. IMPRESSION: No mammographic evidence of malignancy. BI-RADS: BI-RADS 2 - Benign RECOMMENDATION: Routine screening mammogram at age of 40. RISK ASSESSMENT: TC Lifetime risk: 16.8%. The patient's reported personal and family medical history was used calculate their Tyrer-Cuzick lifetime risk of malignancy. Scores less than 20% are not considered high risk per ACR guidelines and patient should continue with the above recommendation. Finalized by Feliz Crockett MD on 02/25/2024 10:11 AM 2 d MAMM AT [facility] 02-18-2024 HUEN Telephone (ANGEL) PINACORDELIAFARAERICA ([id number]) 1990 F [place] Date Time Provider Department 02/18/24 IRINA FINLEY During your visit today, we recorded the following information about you: Noemí Christian 02/18/2024 10:06 AM Signed Request for medical clearance scanned into shared [employer] drive. Response to request faxed and confirmation scanned into [employer]. Allergies As of Date: 02/18/2024 Noted Allergy Reaction ADHESIVE TAPE-SILICONES 01/22/2022 2 - Rash BACTRIM (SULFAMETHOXAZOLE-TRIMETH*0 11/10/2019 4 - Hives SULFA (SULFONAMIDE ANTIBIOTICS) 11/10/2019 4 - Hives MORPHINE 08/03/2022 14 - Other: See Comments Comments: Tachycardia Date Reviewed: 02/07/2024 Reviewed by: Brock Wang PA-C - Fully Assessed Reason for Visit: Medical Clearance Request [Other] Prescriptions as of 02/18/2024 - PREMARIN 0.9 mg tablet Take 0.9 mg by mouth once daily. - atomoxetine (STRATTERA) 40 mg capsule Take 40 mg by mouth once daily. - propranolol ER (INDERAL LA) 60 mg 24 hr capsule take 1 capsule by mouth every day - cyanocobalamin/cobamamide (B12 SUBLINGUAL) Dissolve under the tongue. - COQ10, UBIQUINOL, ORAL Take by mouth. - Usfak-1-KPB-EPA-Fish Oil (FISH OIL) 1,000 mg (120 mg-180 mg) cap - methocarbamol (ROBAXIN) 500 mg tablet Take 1 tablet by mouth two times a day as needed. Problem List As Of Date 02/18/2024 Noted Resolved Paralysis (HCC) [G83.9] 01/22/2022 POTS (postural orthostatic tachycardia syndrome*02/10/2023 Syncope [R55] 02/10/2023 Hyperlipidemia LDL goal <70 [E78.5] 02/10/2023 Migraine [G43.909] 02/10/2023 Arnold-Chiari malformation (HCC) [Q07.00] 02/10/2023 Post covid-19 condition, unspecified [U09.9] 04/21/2023 Diagnosed: 08/04/2023 Sinus tachycardia [R00.0] 12/11/2021 Diagnosed: 08/04/2023 Palpitations [R00.2] 08/03/2022 Diagnosed: 08/04/2023 Hx of syncope [Z87.898] 06/28/2022 Diagnosed: 08/04/2023 Finding of above normal blood pressure [R03.0] 12/11/2021 Diagnosed: 08/04/2023 Depression with anxiety [F41.8] 07/25/2019 Diagnosed: 08/04/2023 Chest pain [R07.9] 04/23/2023 Diagnosed: 08/04/2023 Central cord syndrome (HCC) [S14.129A] 08/04/2023 Diagnosed: 08/04/2023 Calculus of kidney [N20.0] 10/05/2022 Diagnosed: 08/04/2023 Encounter Status:Closed [facility]EM[facility] PASTOR HELLER ([id number]) 1990 F [place] Date Time Provider Department 02/18/24 BROCK WANG NENMMN During your visit today, we recorded the following information about you: Brock Wang PA-C 02/18/2024 12:21 PM Signed Called to discussed new medicine nortriptyline. SE, benefits risks and instructions. Patient is aware and agrees. Allergies As of Date: 02/18/2024 Noted Allergy Reaction ADHESIVE TAPE-SILICONES 01/22/2022 2 - Rash BACTRIM (SULFAMETHOXAZOLE-TRIMETH*0 11/10/2019 4 - Hives SULFA (SULFONAMIDE ANTIBIOTICS) 11/10/2019 4 - Hives MORPHINE 08/03/2022 14 - Other: See Comments Comments: Tachycardia Date Reviewed: 02/07/2024 Reviewed by: Brock Wang PA-C - Fully Assessed Prescriptions as of 02/18/2024 - nortriptyline (PAMELOR) 10 mg capsule Take 1 capsule by mouth daily at bedtime. - PREMARIN 0.9 mg tablet Take 0.9 mg by mouth once daily. - atomoxetine (STRATTERA) 40 mg capsule Take 40 mg by mouth once daily. - propranolol ER (INDERAL LA) 60 mg 24 hr capsule take 1 capsule by mouth every day - cyanocobalamin/cobamamide (B12 SUBLINGUAL) Dissolve under the tongue. - COQ10, UBIQUINOL, ORAL Take by mouth. - Hnegf-9-LJS-EPA-Fish Oil (FISH OIL) 1,000 mg (120 mg-180 mg) cap - methocarbamol (ROBAXIN) 500 mg tablet Take 1 tablet by mouth two times a day as needed. Problem List As Of Date 02/18/2024 Noted Resolved Paralysis (HCC) [G83.9] 01/22/2022 POTS (postural orthostatic tachycardia syndrome*02/10/2023 Syncope [R55] 02/10/2023 Hyperlipidemia LDL goal <70 [E78.5] 02/10/2023 Migraine [G43.909] 02/10/2023 Arnold-Chiari malformation (HCC) [Q07.00] 02/10/2023 Post covid-19 condition, unspecified [U09.9] 04/21/2023 Diagnosed: 08/04/2023 Sinus tachycardia [R00.0] 12/11/2021 Diagnosed: 08/04/2023 Palpitations [R00.2] 08/03/2022 Diagnosed: 08/04/2023 Hx of syncope [Z87.898] 06/28/2022 Diagnosed: 08/04/2023 Finding of above normal blood pressure [R03.0] 12/11/2021 Diagnosed: 08/04/2023 Depression with anxiety [F41.8] 07/25/2019 Diagnosed: 08/04/2023 Chest pain [R07.9] 04/23/2023 Diagnosed: 08/04/2023 Central cord syndrome (HCC) [S14.129A] 08/04/2023 Diagnosed: 08/04/2023 Calculus of kidney [N20.0] 10/05/2022 Diagnosed: 08/04/2023 Encounter Status:Closed by BROCK WANG on 02/18/24 Normal [facility] XR ABDOMEN AP 1 VWon 024 XR ABDOMEN AP 1 VW XR ABDOMEN AP 1 VW XR ABDOMEN AP 1 VW HISTORY: Abdominal pain COMPARISON: None FINDINGS: 2 frontal supine images of the abdomen were obtained . Nonobstructive bowel gas pattern. No abnormal calcifications overlying the kidneys or ureters. IMPRESSION: Unremarkable abdominal radiograph. Approved by Willam Shetty DO on 02/15/2024 9:13 AM Milton Fisher have personally reviewed the image(s) and agree with and/or edited the report Finalized by Milton Onofre on 02/15/2024 10:14 AM Normal [facility] B.PERTUSSIS, IGA,IGG,IG,, SE RUM(SST)on 02-11-2024 B. pertussis, IgG Interp SEE NOTE Abnormal Negative [facility] Comment on above: Result Comment: NOTE IgG antibodies against Bordetella FHA detected, which may suggest past vaccination to Bordetella pertussis and/or infection with Bordetella species. Questionable presence of IgG antibodies against Bordetella pertussis PT detected. Recommend retesting in 2-4 weeks. PT100 (Pertussis toxin 100 IU/ml) detects high concentrations of pertussis toxin-specific antibodies associated with recent infections/vaccinations. PT (Pertussis toxin) is specific to Bordetella pertussis. FHA (Filamentous hemagglutinin) is an antigen common to multiple species of Bordetella. Performed By: #### C BCA, THYR, , , CMP #### [facility] ([id number]) [address] [place] [address] B. pertussis, IgG/FHA Positive Normal [facility] Comment on above: Performed By: #### C BCA, THYR, , , CMP #### [facility] ([id number]) [address] [place] [address] 26856 B. pertussis, IgG/PT Equivocal Normal [facility] Comment on above: Performed By: #### C BCA, THYR, , , CMP #### [facility] ([id number]) [address] [place] [address] 41615 B. pertussis, IgG/PT100 Negative Normal [facility] Comment on above: Performed By: #### C BCA, THYR, 78002-1, , CMP #### [facility] ([id number]) [address] [place] [address] 19625 B. pertussis, IgM Interp Negative Normal Negative [facility] Comment on above: Result Comment: NOTE No IgM antibodies against Bordetella FHA and PT detected. INTREPRETIVE INFORMATION: B. pertussis Antibody, IgM Immunoblot This test was developed and its performance characteristics determined by [facility]. It has not been cleared or approved by the [place] Food and Drug Administration. This test was performed in a CLIA certified laboratory and is intended for clinical purposes. Performed By: [facility] [address] [place] [id number] Tobacco Cutter: Shawn Lacey MD, PhD CLIA Number: [id number] Performed By: #### C BCA, THYR, 68832-4, , CMP #### [facility] ([id number]) [address] [place] [address] 06140 B. pertussis, IgM/FHA Negative Normal [facility] Comment on above: Performed By: #### C BCA, THYR, 32252-4, , CMP #### [facility] ([id number]) [address] [place] [address] 39758 B. pertussis, IgM/PT Negative Normal [facility] Comment on above: Performed By: #### C BCA, THYR, 64752-2, , CMP #### [facility] ([id number]) [address] [place] [address] 55162 B.PERTUSSIS IGA INT SEE NOTE Abnormal Negative [facility] Comment on above: Result Comment: NOTE Questionable presence of IgA antibodies to Bordetella FHA. Recommend retesting in 2-4 weeks. PT (Pertussis toxin) is specific to Bordetella pertussis. FHA (Filamentous hemagglutinin) is an antigen common to multiple species of Bordetella. PT (Pertussis toxin) is specific to Bordetella pertussis. FHA (Filamentous hemagglutinin) is an antigen common to multiple species of Bordetella. Performed By: #### C BCA, THYR, 65428-5, , CMP #### [facility] ([id number]) [address] [place] [address] 87822 B.PERTUSSIS,IGA/FHA Equivocal Normal [facility] Comment on above: Performed By: #### C BCA, THYR, 23935-1, , CMP #### [facility] ([id number]) [address] [place] [address] B.PERTUSSIS,IGA/PT Negative Normal [facility] Comment on above: Performed By: #### Deshaun BCA, THYR, , , CMP #### [facility] ([id number]) [address] [place] [address] 64446 CBC AND AUTO DIFFon 02-11-20 24 ABSOLUTE BASOPHIL 0.1 X10E9/L Normal 0.0-0.2 [facility] Comment on above: Performed By: #### T HYR, 56620-4, 77411-8, 27997-9, 3051-0, 5193-8, 2498-4, 42588-9, CMP, HA1C, CBCA, 6476-6 #### [facility] ([id number]) [address] [place] [address], [address] [place] [address] #### BPAGM #### [facility] ([id number]) [address] [place] [address] 88099 ABSOLUTE NEUTROPHIL 4.0 X10E9/L Normal 1.5-6.6 [facility] Comment on above: Performed By: #### T HYR, 24116-6, 24315-1, 96795-3, 3051-0, 5193-8, 2498-4, 50923-8, CMP, HA1C, CBCA, 6476-6 #### [facility] ([id number]) [address], [address] [place] [address] #### BPAGM #### [facility] ([id number]) [address] [place] [address] 97682 Basophils/100 WBC (Bld) 1.1 % Normal [facility] Comment on above: Performed By: #### T HYR, 18301-1, 66828-2, 38732-1, 3051-0, 5193-8, 2498-4, 64887-7, CMP, HA1C, CBCA, 6476-6 #### [facility] ([id number]) [address], [address] [place] [address] #### BPAGM #### [facility] ([id number]) [address] [place] [address] 49553 Eosinophils (Bld) [#/Vol] 0.2 10*3/uL Normal 0.0-0.4 [facility] Comment on above: Performed By: #### T HYR, 27136-1, 71212-9, 79670-3, 3051-0, 5193-8, 2498-4, 32844-3, CMP, HA1C, CBCA, 6476-6 #### [facility] ([id number]) [address], [address] [place] [address] #### BPAGM #### [facility] ([id number]) [address] [place] [address] 10063 Eosinophils/100 WBC (Bld) 2.9 % Normal [facility] Comment on above: Performed By: #### T HYR, 26544-4, 93243-8, 99150-8, 3051-0, 5193-8, 2498-4, 72028-7, CMP, HA1C, CBCA, 6476-6 #### [facility] ([id number]) [address], [address] [place] [address] #### BPAGM #### [facility] ([id number]) [address] [place] [address]776 Erythrocyte distribution width (RBC) [Ratio] 12.3 % Normal 11.5-15.0 [facility] Comment on above: Performed By: #### T HYR, 68411-2, 04340-6, 76827-4, 3051-0, 5193-8, 2498-4, 35228-5, CMP, HA1C, CBCA, 6476-6 #### [facility] ([id number]) [address] [facility], [address] [address] #### BPAGM #### [facility] ([id number]) [address] [place] [address] 23484 Hematocrit (Bld) [Volume fraction] 37.4 % Normal 35-47 [facility] Comment on above: Performed By: #### T HYR, 18089-5, 04663-7, 36490-4, 3051-0, 5193-8, 2498-4, 35791-2, CMP, HA1C, CBCA, 6476-6 #### [facility] ([id number]) [address], [address] [address] #### BPAGM #### [facility] ([id number]) [address] [place] [address]196 Hemoglobin (Bld) [Mass/Vol] 12.5 g/dL Normal 11.7-15.5 [facility] Comment on above: Performed By: #### T HYR, 04845-6, 29544-9, 35792-8, 3051-0, 5193-8, 2498-4, 03746-1, CMP, HA1C, CBCA, 6476-6 #### [facility] ([id number]) [address], [address] [address] #### BPAGM #### [facility] ([id number]) [address] [place] [address] 61525 Lymphocytes (Bld) [#/Vol] 2.2 10*3/uL Normal 1.0-3.5 [facility] Comment on above: Performed By: #### T HYR, 72321-0, 86657-5, 84375-1, 3051-0, 5193-8, 2498-4, 73411-9, CMP, HA1C, CBCA, 6476-6 #### [facility] ([id number]) [address] [place] [address], [address] [place] [address] #### BPAGM #### [facility] ([id number]) [address] [place] [address] Lymphocytes/100 WBC (Bld) 31.4 % Normal [facility] Comment on above: Performed By: #### T HYR, 05697-9, 10615-9, 67959-7, 3051-0, 5193-8, 2498-4, 60451-9, CMP, HA1C, CBCA, 6476-6 #### [facility] ([id number]) [address] [place] [address], [address] [place] [address] #### BPAGM #### [facility] ([id number]) [address] [place] [address] 60431 MCH (RBC) [Entitic mass] 30.9 pg Normal 27-34 [facility] Comment on above: Performed By: #### T HYR, 09889-3, 95889-6, 62684-4, 3051-0, 5193-8, 2498-4, 94078-0, CMP, HA1C, CBCA, 6476-6 #### [facility] ([id number]) [address] [place] [address], [address] [place] [address] #### BPAGM #### [facility] ([id number]) [address] [place] [address]7488 MCHC (RBC) [Mass/Vol] 33.5 g/dL Normal 32-36 [facility] Comment on above: Performed By: #### T HYR, 86676-4, 38585-9, 41668-7, 3051-0, 5193-8, 2498-4, 45395-4, CMP, HA1C, CBCA, 6476-6 #### [facility] ([id number]) [address] [place] [address], [address] [place] [address] #### BPAGM #### [facility] ([id number]) [address] [place] [address] 19035 MCV (RBC) [Entitic vol] 92 fL Normal 80-100 [facility] Comment on above: Performed By: #### T HYR, 35761-3, 77778-4, 27915-3, 3051-0, 5193-8, 2498-4, 40142-8, CMP, HA1C, CBCA, 6476-6 #### [facility] ([id number]) [address] [place] [address], [address] [address] #### BPAGM #### [facility] ([id number]) [address] [place] [address]125 Monocytes (Bld) [#/Vol] 0.5 10*3/uL Normal 0-0.9 [facility] Comment on above: Performed By: #### T HYR, 32433-2, 36721-5, 37586-3, 3051-0, 5193-8, 2498-4, 31333-9, CMP, HA1C, CBCA, 6476-6 #### [facility] ([id number]) [address] [place] [address], [address] [address] #### BPAGM #### [facility] ([id number]) [address] [place] [address]50 Monocytes/100 WBC (Bld) 7.4 % Normal [facility] Comment on above: Performed By: #### T HYR, 32160-6, 83065-8, 86325-1, 3051-0, 5193-8, 2498-4, 92788-5, CMP, HA1C, CBCA, 6476-6 #### [facility] ([id number]) [address] [facility], [address] [place] [address] #### BPAGM #### [facility] ([id number]) [address] [place] [address]36 Neutrophils/100 WBC (Bld) 57.2 % Normal [facility] Comment on above: Performed By: #### T HYR, 99076-1, 22342-8, 31969-1, 3051-0, 5193-8, 2498-4, 69261-7, CMP, HA1C, CBCA, 6476-6 #### [facility] ([id number]) [address] [facility], [address] [place] [address] #### BPAGM #### [facility] ([id number]) [address] [place] [address] 60067 Platelet mean volume (Bld) [Entitic vol] 11.9 fL Normal 7-12 [facility] Comment on above: Performed By: #### T HYR, 36162-4, 95565-6, 97984-5, 3051-0, 5193-8, 2498-4, 58360-0, CMP, HA1C, CBCA, 6476-6 #### [facility] ([id number]) [address] [place] [address], [address] [place] [address] #### BPAGM #### [facility] ([id number]) [address] [place] [address] 15473 Platelets (Bld) [#/Vol] 215 10*3/uL Normal 150-450 [facility] Comment on above: Performed By: #### T HYR, 31777-8, 09332-7, 94804-9, 3051-0, 5193-8, 2498-4, 46502-3, CMP, HA1C, CBCA, 6476-6 #### [facility] ([id number]) [address] [place] [address], [address] [place] [address] #### BPAGM #### [facility] ([id number]) [address] [place] [address]361 RBC COUNT 4.05 X10E12/L Normal 3.80-5.20 [facility] Comment on above: Performed By: #### T HYR, 53504-4, 49785-6, 12225-7, 3051-0, 5193-8, 2498-4, 27349-2, CMP, HA1C, CBCA, 6476-6 #### [facility] ([id number]) [address] [place] [address], [address] [address] #### BPAGM #### [facility] ([id number]) [address] [place] [address]75 WBC (Bld) [#/Vol] 7.0 10*3/uL Normal 4.0-11.0 [facility] Comment on above: Performed By: #### T HYR, 21147-3, 03517-7, 59593-5, 3051-0, 5193-8, 2498-4, 46260-7, CMP, HA1C, CBCA, 6476-6 #### [facility] ([id number]) [address] [place] [address], [address] [place] [address] #### BPAGM #### [facility] ([id number]) [address] [place] [address] COMPREHENSIVE METABOLIC PANE Kirby 02-11-2024 Albumin [Mass/Vol] 4.4 g/dL Normal 3.2-5.3 [facility] Comment on above: Performed By: #### C BCA, THYR, , , CMP #### [facility] ([id number]) [address] [place] [address] ALP [Catalytic activity/Vol] 47 U/L Normal 39-130 [facility] Comment on above: Performed By: #### C BCA, THYR, , , CMP #### [facility] ([id number]) [address] [place] [address] 79491 ALT [Catalytic activity/Vol] 10 U/L Normal 0-31 [facility] Comment on above: Performed By: #### C BCA, THYR, , , CMP #### [facility] ([id number]) [address] [place] [address] Anion gap [Moles/Vol] 10 mmol/L Normal 5-15 [facility] Comment on above: Performed By: #### C BCA, THYR, , , CMP #### [facility] ([id number]) [address] [place] [address] AST [Catalytic activity/Vol] 17 U/L Normal 0-41 [facility] Comment on above: Performed By: #### C BCA, THYR, , , CMP #### [facility] ([id number]) [address] [place] [address] 85104 Bilirubin [Mass/Vol] 0.4 mg/dL Normal 0.3-1.2 [facility] Comment on above: Performed By: #### C BCA, THYR, , , CMP #### [facility] ([id number]) [address] [place] [address] 11007 Calcium [Mass/Vol] 9.1 mg/dL Normal 8.5-10.5 [facility] Comment on above: Performed By: #### C BCA, THYR, , , CMP #### [facility] ([id number]) [address] [place] [address] 18346 Chloride [Moles/Vol] 103 mmol/L Normal 98-109 [facility] Comment on above: Performed By: #### C BCA, THYR, , , CMP #### [facility] ([id number]) [address] [place] [address] 54616 CO2 [Moles/Vol] 27 mmol/L Normal 22-32 [facility] Comment on above: Performed By: #### C BCA, THYR, , , CMP #### [facility] ([id number]) [address] [place] [address]74 Creatinine [Mass/Vol] 0.72 mg/dL Normal 0.40-1.00 [facility] Comment on above: Result Comment: METH OD TRACEABLE TO IDMS STANDARD Performed By: #### C BCA, THYR, , , CMP #### [facility] ([id number]) [address] [place] [address]474 eGFR (CKD-EPI) NON-RACE DEPENDENT >90 Normal >59 [facility] Comment on above: Result Comment: Reported eGFR is based on the CKD-EPI 2021 equation that does not use a race coefficient. Performed By: #### C BCA, THYR, , , CMP #### [facility] ([id number]) [address] [place] [address] 36169 Glucose [Mass/Vol] 90 mg/dL Normal 65-99 [facility] Comment on above: Performed By: #### C BCA, THYR, , , CMP #### [facility] ([id number]) [address] [place] [address]156 Potassium [Moles/Vol] 4.0 mmol/L Normal 3.5-5.0 [facility] Comment on above: Performed By: #### C BCA, THYR, , , CMP #### [facility] ([id number]) [address] [place] [address] 36313 Protein [Mass/Vol] 7.2 g/dL Normal 6.0-8.0 [facility] Comment on above: Performed By: #### C BCA, THYR, , , CMP #### [facility] ([id number]) [address] [place] [address] 68878 Sodium [Moles/Vol] 140 mmol/L Normal 134-146 [facility] Comment on above: Performed By: #### C BCA, THYR, , , CMP #### [facility] ([id number]) [address] [place] [address] 70846 Urea nitrogen [Mass/Vol] 9 mg/dL Normal 5-23 [facility] Comment on above: Performed By: #### C BCA, THYR, , , CMP #### [facility] ([id number]) [address] [place] [address] 47232 FREE T3on 02-11-2024 Free T3 [Mass/Vol] 3.00 pg/mL Normal 2.50-3.90 [facility] Comment on above: Performed By: #### C BCA, THYR, , , CMP #### [facility] ([id number]) [address] [place] [address] 51937 HBV surface Ab IA Qnon 02-10 Anti HBs quant. 6874.12 mIU/mL Normal [facility] Comment on above: Result Comment: Vacc inated: >=12mIU/mL, Positive (Immune) Unvaccinated: <8mIU/mL, Negative (Not Immune) 8-11.99 mIU/mL: Indeterminate, (Considered Not Immune) Performed By: #### C SOCO, THYR, , , CMP #### [facility] ([id number]) [address] [place] [address] 52052 HGB A1C (GLYCO-HGB)on 2023 Glucose [Mass/Vol] 100 mg/dL Normal [facility] Comment on above: Performed By: #### C SOCO, THYR, , , CMP #### [facility] ([id number]) [address] [place] [address] 53715 HbA1c (Bld) [Mass fraction] 5.1 % Normal 4.4-5.6 [facility] Comment on above: Result Comment: NOTE ADA Guidelines Result HgbA1c Normal : less than 5.7 % Prediabetes : 5.7 % to 6.4 % Diabetes : > 6.4 % Use with caution in patients with abnormal hemoglobin variants as the half-life of red blood cells and in vivo glycation rates are affected. Performed By: #### C SOCO, THYR, , , CMP #### [facility] ([id number]) [address] [place] [address] 29722 IRONon 02-11-2024 Iron [Mass/Vol] 87 ug/dL Normal 50-170 [facility] Comment on above: Performed By: #### C SOCO, THYR, , , CMP #### [facility] ([id number]) [address] [place] [address] 01969 Lipid 1996 panelon 4 Cholesterol [Mass/Vol] 203 mg/dL High 150-200 [facility] Comment on above: Performed By: #### Deshaun WAN, THYR, , , CMP #### [facility] ([id number]) [address] [place] [address] 96170 Cholesterol in HDL [Mass/Vol] 50 mg/dL Normal >39 [facility] Comment on above: Result Comment: HDL <40 mg/dL - High Risk HDL > or = 40mg/dL- Desirable HDL >60 mg/dL - Negative Risk Performed By: #### Deshaun WAN, THYR, , , CMP #### [facility] ([id number]) [address] [place] [address] 87713 Cholesterol in LDL [Mass/Vol] 125 mg/dL Normal <130 [facility] Comment on above: Result Comment: LDL <100 mg/dL - Desirable LDL >160 mg/dL - High Risk Performed By: #### Deshaun BCA, THYR, , , CMP #### [facility] ([id number]) [address] [place] [address] 84738 Cholesterol in VLDL [Mass/Vol] 28 mg/dL Normal 0-30 [facility] Comment on above: Performed By: ###Braden Meade BCA, THYR, , , CMP #### [facility] ([id number]) [address] [place] [address] 48854 CHOLESTEROL:HDL 4.1 Normal 1.0-5.0 [facility] Comment on above: Performed By: ###Braden Meade BCA, THYR, , , CMP #### [facility] ([id number]) [address] [place] [address] 32095 Triglyceride [Mass/Vol] 140 mg/dL Normal 27-150 [facility] Comment on above: Performed By: #### C BCA, THYR, , , CMP #### [facility] ([id number]) [address] [place] [address] 91818 MeV IgG IA Ql (S)on 02-11-20 RUBEOLA AB SCREEN 1.9 AI High <0.9 [facility] Comment on above: Result Comment: POSI TIVE: Antibody(IgG) detected. Indicates previous exposure to rubeola virus and immunity. Performed By: #### C BCA, THYR, , , CMP #### [facility] ([id number]) [address] [place] [address] 87667 MuV IgG IA Ql (S)on 02-11-20 MUMPS VIRUS IgG 2.5 AI High <0.9 [facility] Comment on above: Result Comment: Interpretation-------- <0.9 Negative 0.9 - 1.0 Equivocal >1.0 Positive Performed By: #### C BCA, THYR, , , CMP #### [facility] ([id number]) [address] [place] [address] 14503 Rubella virus Ab Ql (S)on RUBELLA IMMUNE IgG 1.6 AI Normal [facility] Comment on above: Result Comment: Interpretation-------- <0.8 NEGATIVE-considered Not Immune 0.8-0.9 EQUIVOCAL-consider retesting with new specimen >0.9 POSITIVE-considered Immune Performed By: #### C BCA, THYR, , , CMP #### [facility] ([id number]) [address] [place] [address] THYROID PROFILEon 02-11-2024 Free T4 [Mass/Vol] 1.00 ng/dL Normal 0.61-1.60 [facility] Comment on above: Performed By: #### C BCA, THYR, , , CMP #### [facility] ([id number]) [address] [place] [address] TSH 1.24 uIU/mL Normal 0.49-4.67 [facility] Comment on above: Performed By: #### C BCA, THYR, , , CMP #### [facility] ([id number]) [address] [place] [address] 48277 US ABDOMEN LMTD ABDOMEN WALL on 02-11-2024 US ABDOMEN LMTD ABDOMEN WALL US ABDOMEN LMTD ABDOMEN WALL US ABDOMEN LMTD ABDOMEN WALL HISTORY: Hernia, hernia abdominal, pelvic pain and lump at scar COMPARISON: CT abdomen/pelvis 05/03/2020 TECHNIQUE: Grayscale and Doppler imaging of the lower abdomen/ scar FINDINGS: No abnormalities noted in the area of concern. The demonstrated soft tissues are unremarkable. No masses or fluid collections demonstrated. IMPRESSION: * No sonographic evidence of abdominal wall hernia at the area of concern. Approved by Resident Vladimir Brandon MD on 02/11/2024 10:26 AM Les Fisher have personally reviewed the image(s) and agree with and/or edited the report Finalized by Les Greenberg on 02/11/2024 10:47 AM Normal [facility] VZV IgG IA Ql (S)on 02-11-20 24 VARICELLA IgG 1.6 AI High <0.9 [facility] Comment on above: Result Comment: Interpretation-------- <0.9 Negative 0.9 - 1.0 Equivocal >1.0 Positive Performed By: #### C BCA, THYR, 82968-7, 47305-9, CMP #### [facility] ([id number]) [address] [place] [address] CNOVon 02-02-2024 CNOV Office Visit (SYNCMN ) PASTOR HELLER ([id number]) 1990 F [place] Date Time Provider Department 02/02/24 11:45 AM IRINA FINLEY SYNN During your visit today, we recorded the following information about you: Pulse Blood pressure Weight Height 78/minute 126/80 55.3 kg 1.524 m Irina Finley DO 02/02/2024 12:58 PM [facility] [place] [facility] Department of Cardiovascular Medicine SECTION OF CARDIAC PACING and ELECTROPHYSIOLOGY OUTPATIENT VISIT DATE February 02, 2024 OUTPATIENT VISIT TYPE ESTABLISHED PRIMARY CARE PHYSICIAN: Siobhan Evangelista [address] [place] [address] CHIEF COMPLAINT: syncope HISTORY OF PRESENT ILLNESS: Ms. Heller is a 33 year old female who presents today for follow-up visit for syncope. She has a prior diagnosis of POTS following COVID (her tilt test here did not show sustained increase in HR>30 bpm and would not meet traditional criteria for POTS). She has been evaluated by both neurology and cardiology. She has been on propranolol, metoprolol, bisoprolol, ivabradine, midodrine and florinef. She had not had syncope in a year when I first saw her but was having near syncope.. 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 Her CPET was minimally reduced and consistent with cardiac deconditioning. She has been having abdominal pain for several months has an incisional bulge from her hysterectomy, saw her PCP and is planned for CT of abdomen to assess hernia, she has had constipation and not had a bowel movement in a week. she has started strattera for brain fog. CPET 08/27/23 The overall pattern is suggestive of reduced aerobic fitness due to a cardiovascular pattern of exercise limitation. Deconditioning may be a contributing factor. Echo 02/10/23 CONCLUSIONS: - Exam indication: POTS - The left ventricle is normal in size. Left ventricular systolic function is normal. EF = 63 ? 5% (2D biplane) Normal left ventricular diastolic function. - The right ventricle is normal in size. Right ventricular systolic function is normal. - There are no significant valvular abnormalities. - Estimated right ventricular systolic pressure is likely underestimated due to a weak or incomplete tricuspid regurgitation signal and is, at least, 12 mmHg consistent with normal pulmonary artery pressures. Estimated right atrial pressure is 3 mmHg based on IVC assessment. - Exam was compared with the prior echocardiographic exam performed on 01/23/2022 ([place]). There is no significant change. OS event monitor 11/02/22 Narrative Patient was monitored between October 16, 2022 through October 29, 2022. There were a total of 4 transmissions, all transmissions demonstrated sinus tachycardia with rates up to 140 beats per minute. No significant atrial or ventricular ectopy noted Tilt 03/06/22 - Overall: A postural increase in heart rate was seen that was borderline for accentuated postural tachycardia. NOTE: there was not a sustained HR >30 bpm in the first ten minutes this study is not diagnostic of POTS OSH Monitor 11/17/2021 The patient was monitored between November 17 and December 22, 2021. Recordings were made for symptoms of ?heart racing?, short of breath?, ?dizzy? and ?lightheaded?. Sinus rhythm and sinus tachycardia were noted throughout the study. There were no arrhythmias and no supraventricular or ventricular ectopy was noted. Nursing Intake: Strattera was added to combat her brain fog and has helped slightly. She declined increasing due to heart rates. She was having increased headaches as well. She denies orthopnea, PND, cough, edema or syncope. She drinks a gallon of water a day and uses liquid IV and salts her food. She does not use compression. 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 She has been having bowel and bladder issues (difficulty going and feeling like she has to pee all the time). She has not gone for a week and has abdominal pain. She has tried mineral oil, miralax and other laxatives. She used to be very regular. She has had abdominal pain for five months; the constipation started a week ago. PAST CARDIAC HISTORY: None PAST MEDICAL HISTORY Diagnosis Date Arnold-Chiari malformation (HCC) Central cord syndrome (HCC) COVID Depression Family history of seizure disorder Migraines Nephrolithiasis Ovarian cyst Post-COVID syndrome POTS (postural orthostatic tachycardia syndrome) Preeclampsia Sinus tachycardia Syncope PAST SURGICAL HISTORY Procedure Laterality Date ORAL SURGERY PROCEDURE REVISE MEDIAN N/CARPAL TUNNEL SURG VAGINAL HYSTERECTOMY for uncontrolled vagina (more content not included)... Normal [facility] CNCOon 11-01-2023 CNCO Letter Text Normal [facility] CNCOon 10-28-2023 CNCO Letter Text Normal [facility] CARDIOPULMONARY EXERCISE JANE Ton 08-27-2023 BIK36-90% PRE (L/S) 3.05 L/S [facility] RAX32-74% SUPPLEMENTAL (L/S) 3.17 L/S [facility] FET SUPPLEMENTAL (S) 7.68 S [facility] FEV1 PRE (L) 3.08 L [facility] FEV1 SUPPLEMENTAL (L) 3.10 L [facility] FEV1/FVC PRE (%) 83 % [facility] FEV1/FVC SUPPLEMENTAL (%) 83 % [facility] FVC PRE (L) 3.71 L [facility] FVC SUPPLEMENTAL (L) 3.73 L [facility] MVV (L/MIN) 95 L/MIN [facility] PEF PRE (L/S) 7.77 L/S [facility] PEF SUPPLEMENTAL (L/S) 6.74 L/S [facility] [place] [address] [place] [address] Test Date: 2023-08-27 Pat Name: PASTOR HELLER Department: Room: Gender: Female Sports Doctor: Richard Kaila : 1990 Requested By: irina finley Order Number: [id number] Reading MD: Tova Crocker MD Interpretive Statements Patient took all medications as prescribed and confirmed ate light meal. Patient is taking beta-blockers. 15 min post BP 118/69. PRE MVV is not repeatable. POST MVV is repeatable x2. Patient appeared to exercise to Max. Highest HR 177, Highest BP 166/97, Highest YOJANA Sob 9, Legs 8, Chest Pain 9. Symptoms were recreated. ATS/ERS acceptability and repeatability standards for spirometry met. ECG read by MD Mott. ABGx1. Patient chest pain after 15min was a 4 on YOJANA scale. 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 This is a maximal study as the patient reached the maximal predicted heart rate and was noted by the respiratory therapists to exercise to the maximum. A. Baseline Evaluation 1. Vitals: Baseline resting vital signs were BP 118/83, HR 83 min, O2 sat 98%. 2. Baseline ABG indicate a mild acute respiratory alkalosis. The alveolar-arterial oxygen gradient (A-aDO2) is -2 mmHg which is normal for age. 3. Baseline PFT: No obstruction/restriction is noted. Maximal voluntary ventilation (MVV) was 95 L/mn, which is reduced based on FEV1 *35-40. space fraction at rest was % (normal is < 35%). 4. Baseline EKG: Heart Rate 88. Normal sinus rhythm. QRS axis is normal. No ST or T wave changes to suggest ischemia. No pathological Q waves present. No evidence of atrial enlargement. No LVH by voltage criteria. B.Exercise Analysis: In the current study, the patient achieved a reduced work capacity = VO2 max = 24.6 ml/kg/min, (81% of VO2 max predicted); and a normal work rate = 145W, 117% predicted). Cardiovascular: 1. Anaerobic threshold = 59% of VO2 max predicted (normal >40%) indicating normal oxygen delivery and/or utilization through mid-exercise. 2. Heart Rate [place] = 5% (normal is <15%). This identifies successful attainment of the maximal predicted heart rate. 3. Estimated stroke volume (O2/pulse) = 8 mL/BT (85% of predicted maximum), indicating adequate stroke volume response to peak exercise. 4. VO2-Workslope = 7.2 ml/min/watt is slightly reduced (normal = 10 +/- 1.5 ml/min/watt) 5. EKG at peak exercise: Sinus tachycardic rhythm, 182 /min. QRS axis is normal. No signs of ischemia identified. 6. Blood pressure at peak exercise (BP = 166/97), revealing a normal blood pressure response to exercise. Respiratory: 1. O2 saturation was 98% at peak exercise. 2. ABG were not obtained at peak exercise. 3. Tidal volume (VT/FVC) was 46% at end exercise, with an appropriate exercise related increase in respiratory rate (38/min) indicating a normal pattern of respiration at peak exercise. 4. The ventilatory equivalent for carbon dioxide (VE/VCO2) was 35 (normal 25-40), showing normal space ventilation. space fraction was appropriately reduced at peak exercise to 18% (normal <25%). 5. Breathing reserve at end exercise = 32%; 30.2 L/minute was normal, i.e., not exercise limiting. (Normal limits are >30% and >15 L/min) 6. Spirometry post-exercise revealed values that were unchanged compared to baseline. Post exercise flow-volume loops show no change from normal baseline. C. Summary: In summary, in the current exercise study, the patient achieved a mildly reduced work capacity = VO2 max = 24.6 ml/kg/min, (81% of VO2 max predicted); and a normal work rate = 145W, 117% predicted). - The evidence for a cardiovascular pattern of limitation includes: an accelerated heart rate response to exercise and low VO2/Workslope. The latter may identify increased anaerobic work performed during exercise, a marker of cardiovascular dysfunction. - Evidence for respiratory constraints to exercise include: a relatively low MVV based on FEV1 is FEV1*35 or 40 which may potentially reflect thoracic cavity restriction, neuromuscular weakness, or dynamic hyperinflation. However, this was not limiting the exercise and an adequate respiratory reserve is noted. The overall pattern is suggestive of reduced aerobic fitness due to a cardiovascular pattern of exercise limitation. Deconditioning may be a contributing factor. NOTE: Exercise tech staff added the following: Fami (more content not included)... PULMONARY FUNCTION LAB [facility] CNOVon 08-27-2023 CNOV Office Visit (PULBMN ) PASTOR HELLER ([id number]) 1990 F U[place] Date Time Provider Department 08/27/23 8:00 AM PULM FCT LAB 3- A110 PULBMN During your visit today, we recorded the following information about you: Richard Alonso, HERON 08/27/2023 9:54 AM Signed PULM FUNCTION SMARTBLOCK: Provider: Irina Finley, Assisting Tech: Mynor Zamudio, CHECK PROCESSING CLERK AB CPET: 1 Referring Provider: IRINA FINLEY [[id number]] Allergies As of Date: 08/27/2023 Noted Allergy Reaction ADHESIVE TAPE-SILICONES 01/22/2022 2 - Rash BACTRIM (SULFAMETHOXAZOLE-TRIMETH*0 11/10/2019 4 - Hives SULFA (SULFONAMIDE ANTIBIOTICS) 11/10/2019 4 - Hives MORPHINE 08/03/2022 14 - Other: See Comments Comments: Tachycardia Date Reviewed: 08/17/2023 Reviewed by: Daxa Ascencio, EDUARDO - Fully Assessed Reason for Visit: Spirometry [191] Primary Visit Diagnosis:SOB (shortness of breath) [R06.02] Order(s):CARDIOPULMONARY EXERCISE TEST [[id number]] Order #: [id number]. #:[id number]-CARDIOSERVER [id number]: 1 Prescriptions as of 08/27/2023 - cyanocobalamin/cobamamide (B12 SUBLINGUAL) Dissolve under the tongue. - COQ10, UBIQUINOL, ORAL Take by mouth. - FOLIC ACID ORAL Take by mouth. - Jvang-6-AKE-EPA-Fish Oil (FISH OIL) 1,000 mg (120 mg-180 mg) cap - propranolol ER (INDERAL LA) 60 mg 24 hr capsule Take 1 capsule by mouth once daily. - methocarbamol (ROBAXIN) 500 mg tablet Take 1 tablet by mouth two times a day as needed. - estrogens conjugated (PREMARIN) 0.625 mg tablet Take 1 tablet by mouth every morning. Problem List As Of Date 08/27/2023 Noted Resolved Paralysis (HCC) [G83.9] 01/22/2022 POTS (postural orthostatic tachycardia syndrome*02/10/2023 Syncope [R55] 02/10/2023 Hyperlipidemia LDL goal <70 [E78.5] 02/10/2023 Migraine [G43.909] 02/10/2023 Arnold-Chiari malformation (HCC) [Q07.00] 02/10/2023 Post covid-19 condition, unspecified [U09.9] 04/21/2023 Sinus tachycardia [R00.0] 12/11/2021 Palpitations [R00.2] 08/03/2022 Hx of syncope [Z87.898] 06/28/2022 Finding of above normal blood pressure [R03.0] 12/11/2021 Depression with anxiety [F41.8] 07/25/2019 Chest pain [R07.9] 04/23/2023 Central cord syndrome (HCC) [S14.129A] 08/04/2023 Calculus of kidney [N20.0] 10/05/2022 Encounter Status:Closed by RICHARD ALONSO on 08/27/23 [facility] Delfina 08-24-2023 CNPN Telephone (CINTIA) PASTOR HELLER ([id number]) 1990 F UPA Date Time Provider Department 08/24/23 LAUTERBACH, CRISTY PULLMN During your visit today, we recorded the following information about you: Cristy Dawkins, CHECK PROCESSING CLERK 08/24/2023 4:16 PM Signed Spoke with pt re: CPET scheduled 08/27/23 at 8:00am . Pt states She does not wear home oxygen and has no orthopedic limitations to exercise. Pt does (YOGA and resistance )exercise. Explained that ABGs would be drawn during the test. Informed patient to continue using regular medications as directed and to eat a light meal prior to the appointment. Pt also advised to wear comfortable clothes and shoes suitable for exercise. Pt verbalized understanding. Allergies As of Date: 08/24/2023 Noted Allergy Reaction ADHESIVE TAPE-SILICONES 01/22/2022 2 - Rash BACTRIM (SULFAMETHOXAZOLE-TRIMETH*0 11/10/2019 4 - Hives SULFA (SULFONAMIDE ANTIBIOTICS) 11/10/2019 4 - Hives MORPHINE 08/03/2022 14 - Other: See Comments Comments: Tachycardia Date Reviewed: 08/17/2023 Reviewed by: Daxa Ascencio RN - Fully Assessed Reason for Visit: Appointment [186] Prescriptions as of 08/24/2023 - cyanocobalamin/cobamamide (B12 SUBLINGUAL) Dissolve under the tongue. - COQ10, UBIQUINOL, ORAL Take by mouth. - FOLIC ACID ORAL Take by mouth. - Eqaxm-9-IZN-EPA-Fish Oil (FISH OIL) 1,000 mg (120 mg-180 mg) cap - propranolol ER (INDERAL LA) 60 mg 24 hr capsule Take 1 capsule by mouth once daily. - methocarbamol (ROBAXIN) 500 mg tablet Take 1 tablet by mouth two times a day as needed. - estrogens conjugated (PREMARIN) 0.625 mg tablet Take 1 tablet by mouth every morning. Problem List As Of Date 08/24/2023 Noted Resolved Paralysis (HCC) [G83.9] 01/22/2022 POTS (postural orthostatic tachycardia syndrome*02/10/2023 Syncope [R55] 02/10/2023 Hyperlipidemia LDL goal <70 [E78.5] 02/10/2023 Migraine [G43.909] 02/10/2023 Arnold-Chiari malformation (HCC) [Q07.00] 02/10/2023 Post covid-19 condition, unspecified [U09.9] 04/21/2023 Sinus tachycardia [R00.0] 12/11/2021 Palpitations [R00.2] 08/03/2022 Hx of syncope [Z87.898] 06/28/2022 Finding of above normal blood pressure [R03.0] 12/11/2021 Depression with anxiety [F41.8] 07/25/2019 Chest pain [R07.9] 04/23/2023 Central cord syndrome (HCC) [S14.129A] 08/04/2023 Calculus of kidney [N20.0] 10/05/2022 Encounter Status:Closed by CRISTY DAWKINS on 08/24/23 Normal [facility] CNOVon 08-17-2023 CNOV Office Visit (SYNCMN ) PASTOR HELLER ([id number]) 1990 F [place] Date Time Provider Department 08/17/23 10:00 AM IRINA FINLEY SYNN During your visit today, we recorded the following information about you: Weight Height 58.1 kg 1.524 m Irina Finley, 08/17/2023 1:01 PM Signed [facility] [place] [facility] Department of Cardiovascular Medicine SECTION OF CARDIAC PACING and ELECTROPHYSIOLOGY OUTPATIENT VISIT DATE August 17, 2023 OUTPATIENT VISIT TYPE CONSULTATION PRIMARY CARE PHYSICIAN: Siobhan Evangelista [address] [place] [address] REFERRING PHYSICIAN Rita Dougherty [address] [facility] [address] CHIEF COMPLAINT: syncope HISTORY OF PRESENT ILLNESS: Cardiac consultation at the request of Dr. Rita Dougherty. A copy of this consultation note will be provided to the requesting physician by way of shared Medical record or letter to requesting physician via US mail. Ms. Heller is a 32 year old female who is seen today for an opinion regarding syncope. The notes indicate a prior diagnosis of POTS following COVID infection. Her tilt test here was not consistent with POTS however? She has seen neurology as well as Dr. Elena and Dr Dougherty from cardiology. She has been on propranolol, metoprolol, bisoprolol, ivabradine, midodrine and florinef. She had preeclampsia during , her BP normalized after starting propranolol She has not had syncope for about a year but continues to have near syncope. She has been having headaches, mild episodic chest pain, she had been having trouble focusing and with memory. Has fatique. She had COVID early 2020 and a second bout early 2021. She relates shortness of breath all the time, is aggravated with talking for several minutes, she has to stop at the top of a flight of stairs to adjust. . Echo 02/10/23 CONCLUSIONS: - Exam indication: POTS - The left ventricle is normal in size. Left ventricular systolic function is normal. EF = 63 ? 5% (2D biplane) Normal left ventricular diastolic function. - The right ventricle is normal in size. Right ventricular systolic function is normal. - There are no significant valvular abnormalities. - Estimated right ventricular systolic pressure is likely underestimated due to a weak or incomplete tricuspid regurgitation signal and is, at least, 12 mmHg consistent with normal pulmonary artery pressures. Estimated right atrial pressure is 3 mmHg based on IVC assessment. - Exam was compared with the prior echocardiographic exam performed on 01/23/2022 ([place]). There is no significant change. OS event monitor 11/02/22 Narrative Patient was monitored between October 16, 2022 through October 29, 2022. There were a total of 4 transmissions, all transmissions demonstrated sinus tachycardia with rates up to 140 beats per minute. No significant atrial or ventricular ectopy noted Tilt 03/06/22 - Overall: A postural increase in heart rate was seen that was borderline for accentuated postural tachycardia. NOTE: there was not a sustained HR >30 bpm in the first ten minutes this study is not diagnostic of POTS OSH Monitor 11/17/2021 The patient was monitored between November 17 and December 22, 2021. Recordings were made for symptoms of ?heart racing?, short of breath?, ?dizzy? and ?lightheaded?. Sinus rhythm and sinus tachycardia were noted throughout the study. There were no arrhythmias and no supraventricular or ventricular ectopy was noted. Nursing Intake: Ms. Heller is a 32 year old female who is seen today for syncope. She had COVID in April of 2020. She reportedly was diagnosed with POTS after a covid infection though her tilt table test largely ruled this out. She has been on multiple medications including beta blockers (metoprolol, bisoprolol, propranolol), midodrine, florinef, and ivabradine. She follows with neurology and was doing well on florinef and propranolol at the time of her last visit in May. Her first syncopal episode was in 2020. They occurred every 2-3 weeks. She had a prodrome of flushing, hazy vision and loss, and ringing in the ears. She reports she would have two to three episodes when this would happen. She would pass out, fall to the floor, come to and a few minutes later, despite still being seated, she would lose consciousness again. She believe she was out less than a minute. These seemed to be episodic. She would have them for a few days and then be fine for a few weeks. She presents to discuss the syncopal episodes she was having. Over the past year she has only had near syncopal episodes 2-3 times a month but has learned to recognize her triggers. These often happen after exertion. Her heart starts to race and she feels like her chest is going to explode and her ears ring. S (more content not included)... Normal [facility] ECG COMPLETEon 08-17-2023 ECG COMPLETE Ventricular Rate : 6 8 BPM Atrial Rate : 68 BPM P-R Interval : 156 ms QRS Duration : 80 ms Q-T Interval : 378 ms QTC Calculation(Bazett) : 401 ms Calculated P [place] : 53 degrees Calculated R [place] : 32 degrees Calculated T [place] : 36 degrees NORMAL SINUS RHYTHM NORMAL ECG Confirmed by MD ARANA TAMANNA ([id number]) on 08/19/2023 11:47:53 AM NAME : PASTOR HELLER PID : [id number] : 1990 Gender : Female Race : Unknown ORD : [id number] Procedure Date : Aug 17 2023 09:51:46 Edit Date : Aug 19 2023 11:47:56 Diagnosis: NORMAL SINUS RHYTHM NORMAL ECG Confirmed by MD ARANA TAMANNA ([id number]) on 08/19/2023 11:47:53 AM Test Reason : Location : 314 : J14 J1-4 Overread By : MD ARANA TAMANNA Edited By : MD ARANA TAMANNA Referred By : RITA DOUGHERTY Acquired by : MAIN PACK Normal [facility] CNCOon 06-03-2023 CNCO Letter Text Normal [facility] CNOVon 06-03-2023 CNOV Office Visit (CARD P ) PASTOR HELLER ([id number]) 1990 F [place] Date Time Provider Department 06/03/23 7:30 AM JAMES NOBLE CARD P During your visit today, we recorded the following information about you: Pulse Blood pressure Weight Height 67/minute 115/67 53.7 kg 1.499 m James Noble MD 06/03/2023 8:24 AM [facility] [place] [facility] Department of Cardiovascular Medicine SECTION OF PREVENTIVE CARDIOLOGY Date: 06/03/2023 Patient: Pastor Heller : 1990 CHIEF COMPLAINT: New patient visit HISTORY OF PRESENT CARDIOVASCULAR ILLNESS: I had the pleasure of seeing Pastor Heller today in the Preventive Cardiology Clinic for a cardiac evaluation. She comes self-referred today. She is a 32 year old female patient with a past medical history of POTS, hypercholesterolemia, migraine, Arnold-Chiari malformation, depression, history of COVID-19 infection. She states that she has been diagnosed with POTS after COVID-19 infection and had been treated by Dr. Mcdonald of [facility] for POTS. She was on different regimens of beta-blockade including midodrine, fludrocortisone, metoprolol, bisoprolol, ivabradine. She she is established with our colleagues from Neurology, who had been managing most of her POTS care. Was also evaluated by Dr. Dougherty and referred to our syncope clinic. Subjectively, she states that she had sudden episodes of loss of consciousness, to an extent that 1 time she had paralysis. She was is completely evaluated by neurology and this evaluation has been unrevealing. Her tilt table evaluation in 2021 had been diagnostic of POTS, but she had been doing overall well since then. She is currently treated with propranolol 60 mg daily, fludrocortisone 0.1 mg daily. She states since she has been started on the propranolol, she feels much better, her orthostatic symptoms and blood pressures at home have much improved. With respect to cardiovascular risk, she had a lipid panel done in July 2022, which revealed a total cholesterol of 163 mg/dL. PAST MEDICAL HISTORY: PAST MEDICAL HISTORY Diagnosis Date Arnold-Chiari malformation (HCC) COVID Depression Family history of seizure disorder Migraines Nephrolithiasis Ovarian cyst POTS (postural orthostatic tachycardia syndrome) Preeclampsia Syncope PAST SURGICAL HISTORY: PAST SURGICAL HISTORY Procedure Laterality Date REVISE MEDIAN N/CARPAL TUNNEL SURG VAGINAL HYSTERECTOMY for uncontrolled vaginal bleeding FAMILY HISTORY FAMILY HISTORY Problem Relation Age of Onset Genitourinary () Mother Alcohol/Drug Mother Diabetes Father Alcohol/Drug Father Autoimmune disease Father Stroke Father Breast Cancer Paternal Grandmother Alcohol/Drug Paternal Grandfather Seizures Brother SOCIAL HISTORY Employer And Job Title: None on file Years Of Education Completed: Not specified Marital Status: Alcohol Use: Yes (socially) CURRENT MEDS: Current Outpatient Medications Medication Sig rizatriptan (MAXALT) 5 mg tablet Take 1 tablet (5 mg) by mouth as needed. May repeat dose after 2 hours if needed. Maximum daily dose is 15 mg per day. propranolol ER (INDERAL LA) 60 mg 24 hr capsule Take 1 capsule by mouth once daily. methocarbamol (ROBAXIN) 500 mg tablet Take 1 tablet by mouth two times a day as needed. fludrocortisone oral liquid 0.1 mg/mL (CPD) Take 0.1 mg by mouth two times a day. Zinc Acetate, Oral, 50 mg (zinc) cap Take 50 capsules by mouth once daily. Cetirizine (ZYRTEC) 10 mg cap Take 10 mg by mouth once daily. estrogens conjugated (PREMARIN) 0.625 mg tablet Take 1 tablet by mouth every morning. No current facility-administered medications for this visit. ALLERGIES: ALLERGIES Allergen Reactions Adhesive Tape-Silic* Rash Bactrim [Sulfametho* Hives Sulfa (Sulfonamide * Hives Morphine Other: See Comments REVIEW OF SYSTEMS: CONSTITUTIONAL: No weight loss, malaise or fevers. HEENT: Negative for frequent or significant headaches, No changes in hearing or vision, no nose bleeds or other nasal problems. RESPIRATORY: Negative for cough, wheezing, or shortness of breath CARDIOVASCULAR: Negative for chest pain, leg swelling or palpitations GI: Negative for abdominal discomfort, blood in stools or black stools or change in bowel habits. : No history of dysuria, frequency, or incontinence and No difficulty urination, nocturia >1 times per night or hematuria. MUSCULOSKELETAL: Negative for joint pain or swelling, back pain or muscle pain. ENDOCRINE: Negative for cold or heat intolerance, polyuria, polydipsia and goiter HEMATOLOGIC/LYMPHATIC: Negative for prolonged bleeding, bruising easily or swollen nodes. NEUROLOGIC: No history or headaches, syncope, paralysis, seizures or tremors. INTEGUMENTARY: Negative for lesions, ra (more content not included)... Normal [facility] ECG COMPLETEon 06-03-2023 ECG COMPLETE Ventricular Rate : 6 9 BPM Atrial Rate : 69 BPM P-R Interval : 154 ms QRS Duration : 92 ms Q-T Interval : 394 ms QTC Calculation(Bazett) : 422 ms Calculated P [place] : 58 degrees Calculated R [place] : 31 degrees Calculated T [place] : 42 degrees NORMAL SINUS RHYTHM NORMAL ECG Confirmed by fellow KUMAR HOOVER MD ([id number]) on 06/04/2023 4:50:45 AM Confirmed by MD KEVIN, PhD, ADONIS ([id number]) on 06/04/2023 1:25:19 PM NAME : PASTOR HELLER PID : [id number] : 1990 Gender : Female Race : Unknown ORD : [id number] Procedure Date : Jun 03 2023 06:45:45 Edit Date : Jun 04 2023 13:25:23 Diagnosis: NORMAL SINUS RHYTHM NORMAL ECG Confirmed by fellow KUMAR HOOVER MD ([id number]) on 06/04/2023 4:50:45 AM Confirmed by MD KEVIN, PhD, ADONIS ([id number]) on 06/04/2023 1:25:19 PM Test Reason : Location : [facility] : [facility] Overread By : MD KEVIN, PhD,ADONIS Edited By : MD KEVIN, PhD,ADONIS Referred By : JAMES NOBLE Acquired by : GHAZALA JIMENEZ [facility] Delfina 05-06-2023 CNPN Telephone (NHMNS2) PASTOR HELLER ([id number]) 1990 F [place] Date Time Provider Department 05/06/23 JHOANA DAILY [facility] During your visit today, we recorded the following information about you: Anna Lerma 05/06/2023 10:37 AM Signed Rec'd call from pharmacy re: rizatriptan (MAXALT) 5 mg tablet and propranolol ER (INDERAL LA) 60 mg 24 hr capsule. They said that the rigging up worker for rizatriptan (MAXALT) 5 mg tablet states that the max amount per day that can be taken is 3 tablets per day. They are asking if directions could be changed to reflect patient only taking a max of 3 tablets per day? propranolol ER (INDERAL LA) 60 mg 24 hr capsule increases the amount of rizatriptan in the body. They are asking that a new e-script be sent, if you are okay with this. Allergies As of Date: 05/06/2023 Noted Allergy Reaction ADHESIVE TAPE-SILICONES 01/22/2022 2 - Rash BACTRIM (SULFAMETHOXAZOLE-TRIMETH*0 11/10/2019 4 - Hives SULFA (SULFONAMIDE ANTIBIOTICS) 11/10/2019 4 - Hives MORPHINE 08/03/2022 14 - Other: See Comments Date Reviewed: 04/20/2023 Reviewed by: Brock Wang PA-C - Fully Assessed Reason for Visit: Medication Question [7588] Order(s):rizatriptan (MAXALT) 5 mg tabletTake 1 tablet (5 mg) by mouth as needed. May repeat dose after 2 hours if needed. Maximum daily dose is 15 mg per day.Disp: 10 tabletRfl: 2 Prescriptions as of 05/11/2023 - rizatriptan (MAXALT) 5 mg tablet Take 1 tablet (5 mg) by mouth as needed. May repeat dose after 2 hours if needed. Maximum daily dose is 15 mg per day. - propranolol ER (INDERAL LA) 60 mg 24 hr capsule Take 1 capsule by mouth once daily. - methocarbamol (ROBAXIN) 500 mg tablet Take 1 tablet by mouth two times a day as needed. - fludrocortisone oral liquid 0.1 mg/mL (CPD) Take 0.1 mg by mouth two times a day. - Zinc Acetate, Oral, 50 mg (zinc) cap Take 50 capsules by mouth once daily. - Cetirizine (ZYRTEC) 10 mg cap Take 10 mg by mouth once daily. - estrogens conjugated (PREMARIN) 0.625 mg tablet Take 1 tablet by mouth every morning. Problem List As Of Date 05/06/2023 Noted Resolved Paralysis (HCC) [G83.9] 01/22/2022 POTS (postural orthostatic tachycardia syndrome*02/10/2023 Syncope [R55] 02/10/2023 Hyperlipidemia LDL goal <70 [E78.5] 02/10/2023 Migraine [G43.909] 02/10/2023 Arnold-Chiari malformation (HCC) [Q07.00] 02/10/2023 Prescriptions ordered this encounter Disp Refills Start End RIZATRIPTAN 5 MG TABLET 10 t* 2 05/11/2023 Route: ORAL Sig: Take 1 tablet (5 mg) by mouth as needed. May repeat dose after 2 hours if needed. Maximum daily dose is 15 mg per day. Medications Discontinued During This Encounter Prescriptions - rizatriptan (MAXALT) 5 mg tablet (Discontinued) TAKE ONE TABLET BY MOUTH NEEDED. MAY REPEAT DOSE AFTER 2 HOURS IF NEEDED. MAX DAILY DOSE IS 30 MG PER DAY Encounter Status:Closed by JHOANA DAILY on 05/11/23 Normal [facility] CBC AND AUTO DIFFon 04-23-19 ABSOLUTE BASOPHIL 0.1 X10E9/L Normal 0.0-0.2 [facility] Comment on above: Performed By: #### C BCA, THYR, 66932-2, , CMP #### [facility] ([id number]) [address] [place] [address]69[address] ABSOLUTE NEUTROPHIL 3.7 X10E9/L Normal 1.5-6.6 [facility] Comment on above: Performed By: #### C BCA, THYR, , , CMP #### [facility] ([id number]) [address] [place] [address] 96264 Basophils/100 WBC (Bld) 1.5 % Normal [facility] Comment on above: Performed By: #### C BCA, THYR, , , CMP #### [facility] ([id number]) [address] [place] [address] 62950 Eosinophils (Bld) [#/Vol] 0.1 10*3/uL Normal 0.0-0.4 [facility] Comment on above: Performed By: #### C BCA, THYR, , , CMP #### [facility] ([id number]) [address] [place] [address] 90374 Eosinophils/100 WBC (Bld) 2.2 % Normal [facility] Comment on above: Performed By: #### C BCA, THYR, , , CMP #### [facility] ([id number]) [address] [place] [address] 14176 Erythrocyte distribution width (RBC) [Ratio] 12.8 % Normal 11.5-15.0 [facility] Comment on above: Performed By: #### C BCA, THYR, , , CMP #### [facility] ([id number]) [address] [place] [address] 22043 Hematocrit (Bld) [Volume fraction] 38.9 % Normal 35-47 [facility] Comment on above: Performed By: #### C BCA, THYR, , , CMP #### [facility] ([id number]) [address] [place] [address] 79735 Hemoglobin (Bld) [Mass/Vol] 12.9 g/dL Normal 11.7-15.5 [facility] Comment on above: Performed By: #### C BCA, THYR, , , CMP #### [facility] ([id number]) [address] [place] [address] 91821 Lymphocytes (Bld) [#/Vol] 2.2 10*3/uL Normal 1.0-3.5 [facility] Comment on above: Performed By: #### C BCA, THYR, , , CMP #### [facility] ([id number]) [address] [place] [address] 18704 Lymphocytes/100 WBC (Bld) 33.6 % Normal [facility] Comment on above: Performed By: #### C BCA, THYR, , , CMP #### [facility] ([id number]) [address] [place] [address] 45116 MCH (RBC) [Entitic mass] 30.4 pg Normal 27-34 [facility] Comment on above: Performed By: #### C BCA, THYR, , , CMP #### [facility] ([id number]) [address] [place] [address] 50910 MCHC (RBC) [Mass/Vol] 33.2 g/dL Normal 32-36 [facility] Comment on above: Performed By: #### C BCA, THYR, , , CMP #### [facility] ([id number]) [address] [place] [address] 67726 MCV (RBC) [Entitic vol] 92 fL Normal 80-100 [facility] Comment on above: Performed By: #### C BCA, THYR, 20838-2, , CMP #### [facility] ([id number]) [address] [place] [address] 27620 Monocytes (Bld) [#/Vol] 0.4 10*3/uL Normal 0-0.9 [facility] Comment on above: Performed By: #### C BCA, THYR, , , CMP #### [facility] ([id number]) [address] [place] [address] 77888 Monocytes/100 WBC (Bld) 6.6 % Normal [facility] Comment on above: Performed By: #### Deshaun BCA, THYR, , , CMP #### [facility] ([id number]) [address] [place] [address] 27381 Neutrophils/100 WBC (Bld) 56.1 % Normal [facility] Comment on above: Performed By: #### Deshaun BCA, THYR, , , CMP #### [facility] ([id number]) [address] [place] [address] 02799 Platelet mean volume (Bld) [Entitic vol] 11.7 fL Normal 7-12 [facility] Comment on above: Performed By: #### C BCA, THYR, , , CMP #### [facility] ([id number]) [address] [place] [address] 10574 Platelets (Bld) [#/Vol] 247 10*3/uL Normal 150-450 [facility] Comment on above: Performed By: #### Deshaun BCA, THYR, , , CMP #### [facility] ([id number]) [address] [place] [address] 84437 RBC COUNT 4.25 X10E12/L Normal 3.80-5.20 [facility] Comment on above: Performed By: #### C BCA, THYR, , , CMP #### [facility] ([id number]) [address] [place] [address] 44540 WBC (Bld) [#/Vol] 6.5 10*3/uL Normal 4.0-11.0 [facility] Comment on above: Performed By: #### C BCA, THYR, , , CMP #### [facility] ([id number]) [address] [place] [address] 62260 COMPREHENSIVE METABOLIC PANE Kirby 04-23-2023 Albumin [Mass/Vol] 4.8 g/dL Normal 3.2-5.3 [facility] Comment on above: Performed By: #### C BCA, THYR, , , CMP #### [facility] ([id number]) [address] [place] [address] 22488 ALP [Catalytic activity/Vol] 56 U/L Normal 39-130 [facility] Comment on above: Performed By: #### C BCA, THYR, , , CMP #### [facility] ([id number]) [address] [place] [address] 15079 ALT [Catalytic activity/Vol] 17 U/L Normal 0-31 [facility] Comment on above: Performed By: #### C BCA, THYR, , , CMP #### [facility] ([id number]) [address] [place] [address] 75473 Anion gap [Moles/Vol] 11 mmol/L Normal 5-15 [facility] Comment on above: Performed By: #### C BCA, THYR, , , CMP #### [facility] ([id number]) [address] [place] [address] 83035 AST [Catalytic activity/Vol] 24 U/L Normal 0-41 [facility] Comment on above: Performed By: #### C BCA, THYR, , , CMP #### [facility] ([id number]) [address] [place] [address] 21781 Bilirubin [Mass/Vol] 0.5 mg/dL Normal 0.3-1.2 [facility] Comment on above: Performed By: #### C BCA, THYR, , , CMP #### [facility] ([id number]) [address] [place] [address] 09163 Calcium [Mass/Vol] 9.5 mg/dL Normal 8.5-10.5 [facility] Comment on above: Performed By: #### C BCA, THYR, , , CMP #### [facility] ([id number]) [address] [place] [address] 62831 Chloride [Moles/Vol] 104 mmol/L Normal 98-109 [facility] Comment on above: Performed By: #### C BCA, THYR, , , CMP #### [facility] ([id number]) [address] [place] [address] 72448 CO2 [Moles/Vol] 23 mmol/L Normal 22-32 [facility] Comment on above: Performed By: #### C BCA, THYR, , , CMP #### [facility] ([id number]) [address] [place] [address] 36826 Creatinine [Mass/Vol] 0.78 mg/dL Normal 0.40-1.00 [facility] Comment on above: Result Comment: METH OD TRACEABLE TO IDMS STANDARD Performed By: #### C BCA, THYR, , , CMP #### [facility] ([id number]) [address] [place] [address] 56526 eGFR (CKD-EPI) NON-RACE DEPENDENT >90 Normal >59 [facility] Comment on above: Result Comment: Reported eGFR is based on the CKD-EPI 2020 equation that does not use a race coefficient. Performed By: #### C BCA, THYR, , , CMP #### [facility] ([id number]) [address] [place] [address] 18070 Glucose [Mass/Vol] 103 mg/dL High 65-99 [facility] Comment on above: Performed By: #### C BCA, THYR, , , CMP #### [facility] ([id number]) [address] [place] [address] 15798 Potassium [Moles/Vol] 3.1 mmol/L Low 3.5-5.0 [facility] Comment on above: Performed By: #### C BCA, THYR, , , CMP #### [facility] ([id number]) [address] [place] [address] 94097 Protein [Mass/Vol] 8.1 g/dL High 6.0-8.0 [facility] Comment on above: Performed By: #### C BCA, THYR, , , CMP #### [facility] ([id number]) [address] [place] [address] 93474 Sodium [Moles/Vol] 138 mmol/L Normal 134-146 [facility] Comment on above: Performed By: #### C BCA, THYR, , , CMP #### [facility] ([id number]) [address] [place] [address] 40480 Urea nitrogen [Mass/Vol] 12 mg/dL Normal 5-23 [facility] Comment on above: Performed By: #### C BCA, THYR, , , CMP #### [facility] ([id number]) [address] [place] [address] 68755 HCG ( test) Ql (U)o n 04-23-2023 Beta HCG ( test) Ql (U) Negative Normal NEG [facility] Comment on above: Performed By: #### 2 106-3 #### [facility] ([id number]) [address] [place] [address] 97846 MAGNESIUMon 04-23-2023 Magnesium [Mass/Vol] 2.2 mg/dL Normal 1.8-2.6 [facility] Comment on above: Performed By: #### C BCA, THYR, , , CMP #### [facility] ([id number]) [address] [place] [address] 17884 THYROID PROFILEon 04-23-2023 Free T4 [Mass/Vol] 0.77 ng/dL Normal 0.61-1.60 [facility] Comment on above: Performed By: #### C BCA, THYR, , , CMP #### [facility] ([id number]) [address] [place] [address] 92935 TSH 1.50 uIU/mL Normal 0.49-4.67 [facility] Comment on above: Performed By: #### C BCA, THYR, , , CMP #### [facility] ([id number]) [address] [place] [address] 49511 TROPONIN Ion 04-23-2023 Troponin I.cardiac [Mass/Vol] ng/mL Normal 0.00-0.04 [facility] Comment on above: Performed By: #### C BCA, THYR, 38716-2, 75669-4, CMP #### [facility] ([id number]) [address] [place] [address] 35466 URN MACROSCOPIC NURon 2023 BILIRUBIN COURTNEY Negative Normal NEG [facility] Comment on above: Performed By: #### N UM #### [facility] ([id number]) [address] [place] [address] [place] [address] BLOOD/HGB COURTNEY Trace Abnormal NEG [facility] Comment on above: Performed By: #### N UM #### [facility] ([id number]) [address] [place] [address] 66216 GLUCOSE COURNTEY Negative Normal NEG [facility] Comment on above: Performed By: #### N UM #### [facility] ([id number]) [address] [place] [address] [place] [address] KETONES COURTNEY Negative Normal NEG [facility] Comment on above: Performed By: #### N UM #### [facility] ([id number]) [address] [place] [address] [place] [address] LEUKOCYTE ESTERASE COURTNEY Negative Normal NEG [facility] Comment on above: Performed By: #### N UM #### [facility] ([id number]) [address] [place] [address] [place] [address] NITRITE COURTNEY Negative Normal NEG [facility] Comment on above: Performed By: #### N UM #### [facility] ([id number]) [address] [place] [address] 56968 PH COURTNEY 7.0 Normal 5.0-8.5 [facility] Comment on above: Performed By: #### N UM #### [facility] ([id number]) [address] [place] [address] 43013 PROTEIN COURTNEY Negative Normal NEG [facility] Comment on above: Performed By: #### N UM #### [facility] ([id number]) [address] [place] [address] SPECIFIC GRAVITY COURTNEY 1.010 Normal 1.003-1 .03 5 [facility] Comment on above: Performed By: #### N UM #### [facility] ([id number]) [address] [place] [address] UROBILINOGEN COURTNEY 0.2 eu/dL Normal <1.1 [facility] Comment on above: Performed By: #### N UM #### [facility] ([id number]) [address] [place] [address] XR CHEST 1 VWon 04-23-2023 XR CHEST 1 VW XR CHEST 1 VW Clinical history: Chest pain Views: 1 Comparison: 01/16/2023 Findings/Impression: 1. No acute infiltrate. No volume loss nor consolidation. There is no pleural effusion, pneumothorax, nor volume loss. Heart and mediastinal structures are unremarkable. Pulmonary vasculature stable. 2. No significant change Finalized by Deacon Lieberman MD on 04/23/2023 7:33 AM Normal [facility] 25(OH)D3 SerPl-mCncon 2023 25-hydroxyvitamin D3 [Mass/Vol] 71.5 ng/mL Normal 31.0-80.0 [facility] Comment on above: Order Comment: Speci men Type: BLOOD SPECIMEN Ordering Facility: [facility] Address: [address] [place] [address] Result Comment: Clas sification of 25 [place] Vitamin D status: Deficiency/Insufficiency: < or = 30 ng/ml. Sufficiency/Optimal Levels: 31-80 ng/mL Toxicity: > 100 ng/mL. Test performed by chemiluminescent immunoassay. Performed By: #### 1 989-3 #### [facility] CLIA [id number] [address] [facility] [id number] [place] [address] [place] CBC panel Auto (Bld)on 04-20 Erythrocyte distribution width (RBC) [Ratio] 12.3 % Normal 11.5-15.0 [facility] Comment on above: Order Comment: Speci men Type: BLOOD SPECIMEN Ordering Facility: [facility] Address: [address] [place] [address] Performed By: #### Deshaun ORO, 5763-8 #### [facility] CLIA [id number] [address] [place] [address] [place] Hematocrit (Bld) [Volume fraction] 40.1 % Normal 36.0-46.0 [facility] Comment on above: Order Comment: Speci men Type: BLOOD SPECIMEN Ordering Facility: [facility] Address: [address] [place] [address] Performed By: #### Deshaun ORO, 5763-8 #### [facility] CLIA [id number] [address] [place] [address] [place] Hemoglobin (Bld) [Mass/Vol] 12.6 g/dL Normal 11.5-15.5 [facility] Comment on above: Order Comment: Speci men Type: BLOOD SPECIMEN Ordering Facility: [facility] Address: [address] [place] [address] Performed By: #### Deshaun ORO, 5763-8 #### [facility] CLIA [id number] [address] [place] [address] [place] MCH (RBC) [Entitic mass] 30.1 pg Normal 26.0-34.0 [facility] Comment on above: Order Comment: Speci men Type: BLOOD SPECIMEN Ordering Facility: [facility] Address: [address] [place] [address] Performed By: #### Deshaun ORO, 5763-8 #### [facility] CLIA [id number] [address] [place] [address] [place] MCHC (RBC) [Mass/Vol] 31.4 g/dL Normal 30.5-36.0 [facility] Comment on above: Order Comment: Speci men Type: BLOOD SPECIMEN Ordering Facility: [facility] Address: [address] [place] [address] Performed By: #### Deshaun DIAZPER, 5763-8 #### [facility] CLIA [id number] [address] [place] [address] [place] MCV (RBC) [Entitic vol] 95.9 fL Normal 80.0-100.0 [facility] Comment on above: Order Comment: Speci men Type: BLOOD SPECIMEN Ordering Facility: [facility] Address: [address] [place] [address] Performed By: #### Deshaun DIAZPER, 5763-8 #### [facility] CLIA [id number] [address] [place] [address] [place] Nucleated RBC (Bld) [#/Vol] 10*3/uL Normal <0.01 [facility] Comment on above: Order Comment: Speci men Type: BLOOD SPECIMEN Ordering Facility: [facility] Address: [address] [place] [address] Performed By: #### Deshaun ORO, 5763-8 #### [facility] CLIA [id number] [address] [place] [address] [place] Platelet mean volume (Bld) [Entitic vol] 12.9 fL High 9.0-12.7 [facility] Comment on above: Order Comment: Speci men Type: BLOOD SPECIMEN Ordering Facility: [facility] Address: [address] [place] [address] Performed By: #### Deshaun OPGLADYS, 5763-8 #### [facility] CLIA [id number] [address] [place] [address] [place] Platelets (Bld) [#/Vol] 258 10*3/uL Normal 150-400 [facility] Comment on above: Order Comment: Speci men Type: BLOOD SPECIMEN Ordering Facility: [facility] Address: [address] [place] [address] Performed By: #### Deshaun ORO, 5763-8 #### [facility] CLIA [id number] [address] [place] [address] [place] RBC (Bld) [#/Vol] 4.18 10*6/uL Normal 3.90-5.20 [facility] Comment on above: Order Comment: Speci men Type: BLOOD SPECIMEN Ordering Facility: [facility] Address: [address] [place] [address] Performed By: #### Deshaun ORO, 5763-8 #### [facility] CLIA [id number] [address] [place] [address] [place] WBC (Bld) [#/Vol] 7.79 10*3/uL Normal 3.70-11.00 [facility] Comment on above: Order Comment: Speci men Type: BLOOD SPECIMEN Ordering Facility: [facility] Address: [address] [place] [address] Performed By: ###Braden ORO, 5763-8 #### [facility] CLIA [id number] [address] [place] [address] [place] CHROMIUM BLOODon 04-20-2023 Chromium (Bld) [Mass/Vol] <0.5 Normal <0.6 [facility] Comment on above: Order Comment: Speci men Type: BLOOD SPECIMENOrdering Facility: [facility] Address: [address] [place] [address] Result Comment: This test was developed and its performance characteristics determined by [facility] [place] ([facility]). It has not been cleared or approved by the FDA. [facility] is regulated under CLIA as qualified to perform high-complexity testing. This test is used for clinical purposes. It should not be regarded as investigational or for research. Performed By: #### Greg SAN, CHROM ####[facility] [id number] [place] [address] [place] CNOVon 04-20-2023 CNOV Office Visit (NENMMN ) PASTOR HELLER ([id number]) 1990 F U[employer] Date Time Provider Department 04/20/23 12:15 PM BROCK WANGNMMN During your visit today, we recorded the following information about you: Pulse Blood pressure Weight Height 93/minute 138/86 55.3 kg 1.499 m Brock Wang PA-C 04/20/2023 3:15 PM [address] [facility] Follow Up Pastor eHller is a 32 year old female. Last office visit Ortega Natarajan 05/29/2022: ASSESSMENT Pastor Heller is a 31 year old here today for follow up. Relevant history of chiari malformation, migraines, depression, ovarian cyst, nephrolithiasis. Seen initially in February, after hospital admission for TLOC and paralysis. At that time she had onoging hand weakness, right sided weakness on exam, large and small fiber findings, as well as +Tuning fork sign. EMG was within normal limits. Referral was placed to Dr. Jo. Primary complaint was episodes of TLOC that can occur seated or standing, lasting up to 20 minutes. She was seen by epilepsy with plan for EMU admission. She had EPS tilt in 02/2022, confirming POTS diagnosis. Currently on ivabradine 5 mg BID. In the interim, POTS symptoms are well managed on ivabradine. She has only 2 syncopal episodes in the interim, and she endorses high stress levels around that time. She complains today of positional headache, waking up in the AM with a headache which sometimes dissipates throughout the day. She has headache onset with valsalva, cough / sneeze. There is concern for IIH given her Chiari, and as symptoms are new since most recent MRI, we need to obtain updated scans. She is not well controlled on gabapentin, will trial Diamox and referral to headache clinic. PLAN 1) Labs 2) Eye doctor for papilledema exam - send me the notes from your eye doctor 3) MRI / MRV brain 4) SMA 5) Diamox: -250 mg 2 x daily for 2 weeks -500 mg 2 x daily 6) Taper off gabapentin: -100 mg 2 x daily for 1 week -Then 100 mg daily for 1 week -Then 100 mg every other day for 3 days, then STOP 7) Consult to headache clinic 8) Let me know when you complete EMU admission Return 3-6 months. Today April 19, 2023: Patient presents today for follow up evaluation regarding POTS and headaches. Was referred to headache clinic at last appointment however was not able to get this set up. Was not able to complete EMU. Was unable to try diamox. Headaches occurring daily. Occipital/neck to frontal, R >L 1-4 hours Photophobia Phonophobia Nausea Vomiting Throbbing and stabbing Worsening for the last month Non positional, no initiation with cough/sneeze Was recently initiated on fludrocortisone by PCP due to post covid syndrome. Since then noticing no improvement in POTS symptoms. Worsening headaches since initiation of this medication. POTS seems well controlled, still experiencing heart racing Was able to see ophthalmology - normal exam per patient. Current management of orthostatic condition Diet: 3 meals per day Exercise: 30 mins in morning and then active throughout the day Water: 64 oz per day Salt: yes Stockings: no Current Medications for orthostatic condition Fludrocortisone Prior Medications for orthostatic condition Midodrine Propranolol Corlanor Reveiwed of work up to date: MRI Brain 06/22/2022: No acute intracranial findings. MRV Brain06/22/2022: 1. No evidence for dural venous sinus thrombosis. 2. 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 This is nonspecific and may represent Chiari I malformation. Clinical correlation is recommended. Labs Vit E, ceruloplasmin WNL EPS Tilt 03/06/2022 * FINAL IMPRESSIONS * - The test was completed per protocol at 45 minutes of 70 degree tilt. - Systolic blood pressures: 107 mmHg at start to 125 mmHg at end of tilt. - Diastolic blood pressures: 72 mmHg at start to 71 mmHg at end of tilt. - Blood pressure upon return to supine position was 128/79 mmHg. - Heart rates: 87 bpm at start to 95 bpm at end of tilt. - Heart rate upon return to supine position was 83 bpm. - Patient signs/symptoms included: BLURRY VISION, DIZZINESS, HEADACHE, HOT, LIGHTHEADED, PALPITATIONS, SEE NOTE, TINGLING. - Overall: A postural increase in heart rate was seen that was borderline for accentuated postural tachycardia. EMG 03/25/2022 Study Interpretation Electrodiagnostic examination of the right upper limb reveals: 1. No definite evidence of a right ulnar neuropathy. 2. No definite evidence of a right cervical (including C5-T1) motor radiculopathy. 3. Screening studies for median mononeuropathy did not reveal any definite abnormalities. 4. There is a right cate grabiel anastomosis present which is a normal anatomical variant. EEG Long 03/19/2022 Impression: This EEG is within samara (more content not included)... Normal [facility] COPPER BLOODon 04-20-2023 Copper [Mass/Vol] 120 ug/dL Normal 80-155 [facility] Comment on above: Order Comment: Clark ihnton Type: BLOOD SPECIMEN Ordering Facility: [facility] Address: [address] [place] [address] Result Comment: This test was developed and its performance characteristics determined by [facility] [place] ([facility]). It has not been cleared or approved by the FDA. [facility] is regulated under CLIA as qualified to perform high-complexity testing. This test is used for clinical purposes. It should not be regarded as investigational or for research. Performed By: #### C SHORTY, 5763-8 #### [facility] CLIA [id number] [address] [place] [address] [place] CRP SerPl-mCncon 04-20-2023 CRP [Mass/Vol] mg/L Normal <0.9 [facility] Comment on above: Order Comment: Clark hinton Type: BLOOD SPECIMEN Ordering Facility: [facility] Address: [address] [place] [address] Performed By: #### Deshaun ORO, 5763-8 #### [facility] CLIA [id number] [address] [place] [address] [place] Comprehensive metabolic 2000 panelon 04-20-2023 Albumin [Mass/Vol] 4.8 g/dL Normal 3.9-4.9 [facility] Comment on above: Order Comment: Speci men Type: BLOOD SPECIMEN Ordering Facility: [facility] Address: [address] [place] [address] Performed By: #### Deshaun ORO, 5763-8 #### [facility] CLIA [id number] [address] [place] [address] [place] ALP [Catalytic activity/Vol] 64 U/L Normal 34-123 [facility] Comment on above: Order Comment: Speci men Type: BLOOD SPECIMEN Ordering Facility: [facility] Address: [address] [place] [address] Performed By: #### Deshaun ORO, 5763-8 #### [facility] CLIA [id number] [address] [place] [address] [place] ALT [Catalytic activity/Vol] 15 U/L Normal 7-38 [facility] Comment on above: Order Comment: Speci men Type: BLOOD SPECIMEN Ordering Facility: [facility] Address: [address] [place] [address] Performed By: #### Deshaun ORO, 5763-8 #### [facility] CLIA [id number] [address] [place] [address] [place] Anion gap [Moles/Vol] 15 mmol/L Normal 9-18 [facility] Comment on above: Order Comment: Speci men Type: BLOOD SPECIMEN Ordering Facility: [facility] Address: [address] [place] [address] Performed By: #### Deshaun ORO, 5763-8 #### [facility] CLIA [id number] [address] [place] [address] [place] AST [Catalytic activity/Vol] 21 U/L Normal 13-35 [facility] Comment on above: Order Comment: Speci men Type: BLOOD SPECIMEN Ordering Facility: [facility] Address: [address] [place] [address] Performed By: #### Deshaun ORO, 5763-8 #### [facility] CLIA [id number] [address] [place] [address] [place] Bilirubin [Mass/Vol] 0.3 mg/dL Normal 0.2-1.3 [facility] Comment on above: Order Comment: Speci men Type: BLOOD SPECIMEN Ordering Facility: [facility] Address: [address] [place] [address] Performed By: #### Deshaun ORO, 5763-8 #### [facility] CLIA [id number] [address] [place] [address] [place] Calcium [Mass/Vol] 9.7 mg/dL Normal 8.5-10.2 [facility] Comment on above: Order Comment: Speci men Type: BLOOD SPECIMEN Ordering Facility: [facility] Address: [address] [place] [address] Performed By: #### Deshaun ORO, 5763-8 #### [facility] CLIA [id number] [address] [place] [address] [place] Chloride [Moles/Vol] 103 mmol/L Normal 97-105 [facility] Comment on above: Order Comment: Speci men Type: BLOOD SPECIMEN Ordering Facility: [facility] Address: [address] [place] [address] Performed By: #### Deshaun ORO, 5763-8 #### [facility] CLIA [id number] [address] [place] [address] [place] CO2 [Moles/Vol] 24 mmol/L Normal 22-30 [facility] Comment on above: Order Comment: Speci men Type: BLOOD SPECIMEN Ordering Facility: [facility] Address: [address] [place] [address] Performed By: #### Deshaun ORO, 5763-8 #### [facility] CLIA [id number] [address] [place] [address] [place] Creatinine [Mass/Vol] 0.67 mg/dL Normal 0.58-0.96 [facility] [facility] Comment on above: Order Comment: Clark hinton Type: BLOOD SPECIMEN Ordering Facility: [facility] Address: [address] [place] [address] Performed By: #### Deshaun ORO, 5763-8 #### [facility] CLIA [id number] [facility] [place] [address] [place] Creatinine and Glomerular filtration rate.predicted panel (S/P/Bld) 119 mL/min/1.73m??? Normal >=60 [facility] Comment on above: Order Comment: Clark hinton Type: BLOOD SPECIMEN Ordering Facility: [facility] Address: [address] [place] [address] Result Comment: Trang mated Glomerular Filtration Rate (eGFR) is calculated using the 2020 CKD-EPI creatinine equation. This equation utilizes serum creatinine, sex, and age as parameters. The creatinine assay has traceable calibration to isotope dilution-mass spectrometry. Refer to KDIGO guidelines for clinical interpretation. In patients with unstable renal function, e.g. those with acute kidney injury, the eGFR may not accurately reflect actual GFR. Performed By: #### Deshaun ORO, 5763-8 #### [facility] CLIA [id number] [address] [place] [address] [place] Glucose [Mass/Vol] 124 mg/dL High 74-99 [facility] Comment on above: Order Comment: Clark hinton Type: BLOOD SPECIMEN Ordering Facility: [facility] Address: [address] [place] [address] Result Comment: The [place] Diabetes Association (ADA) provides guidance for cutoff values for fasting glucose and random glucose. The ADA defines fasting as no caloric intake for at least 8 hours. Fasting plasma glucose results between 100 to 125 mg/dL indicate increased risk for diabetes (prediabetes). Fasting plasma glucose results greater than or equal to 126 mg/dL meet the criteria for diagnosis of diabetes. In the absence of unequivocal hyperglycemia, results should be confirmed by repeat testing. In a patient with classic symptoms of hyperglycemia or hyperglycemic crisis, random plasma glucose results greater than or equal to 200 mg/dL meet the criteria for diagnosis of diabetes. Reference: Standards of Medical Care in Diabetes 2016, [place] Diabetes Association. Diabetes Care. 2016.39(Suppl 1). Performed By: #### Deshaun ORO, 5763-8 #### [facility] CLIA [id number] [address] [place] [address] [place] Potassium [Moles/Vol] 3.5 mmol/L Low 3.7-5.1 [facility] Comment on above: Order Comment: Speci men Type: BLOOD SPECIMEN Ordering Facility: [facility] Address: [address] [place] [address] Performed By: #### Deshaun ORO, 5763-8 #### [facility] CLIA [id number] [address] [place] [address] [place] Protein [Mass/Vol] 7.3 g/dL Normal 6.3-8.0 [facility] Comment on above: Order Comment: Speci men Type: BLOOD SPECIMEN Ordering Facility: [facility] Address: [address] [place] [address] Performed By: #### Deshaun ORO, 5763-8 #### [facility] CLIA [id number] [address] [place] [address] [place] Sodium [Moles/Vol] 142 mmol/L Normal 136-144 [facility] Comment on above: Order Comment: Speci men Type: BLOOD SPECIMEN Ordering Facility: [facility] Address: [address] [place] [address] Performed By: #### Deshaun ORO, 5763-8 #### [facility] CLIA [id number] [address] [place] [address] [place] Urea nitrogen [Mass/Vol] 10 mg/dL Normal 7-21 [facility] Comment on above: Order Comment: Speci men Type: BLOOD SPECIMEN Ordering Facility: [facility] Address: [address] [place] [address] Performed By: #### Deshaun ORO, 5763-8 #### [facility] CLIA [id number] [facility] [place] [address] [place] Ferritin SerPl-mCncon 2023 Ferritin [Mass/Vol] 67.5 ng/mL Normal 14.7-205.1 [facility] Comment on above: Order Comment: Speci men Type: BLOOD SPECIMEN Ordering Facility: [facility] Address: [address] [place] [address] Performed By: #### Deshaun ORO, 5763-8 #### [facility] CLIA [id number] [address] [place] [address] [place] Folate SerPl-mCncon 04-20-19 Folate [Mass/Vol] 19.2 ng/mL Normal >4.7 [facility] Comment on above: Order Comment: Speci men Type: BLOOD SPECIMEN Ordering Facility: [facility] Address: [address] [place] [address] Performed By: #### Deshaun ORO, 5763-8 #### [facility] CLIA [id number] [address] [place] [address] [place] MANGANESE BLDon 04-20-2023 Manganese (Bld) [Mass/Vol] 6.3 ug/L Normal 4.4-15.2 [facility] Comment on above: Order Comment: Speci men Type: BLOOD SPECIMENOrdering Facility: [facility] Address: [address] [place] [address] Result Comment: This test was developed and its performance characteristics determined by [facility] Wenceslao [facility]vin [facility] [place] ([facility]). It has not been cleared or approved by the FDA. [facility] is regulated under CLIA as qualified to perform high-complexity testing. This test is used for clinical purposes. It should not be regarded as investigational or for research. Performed By: #### Greg SAN, CHROM ####[facility] [id number] [address] [place] OMEGACHECKon 04-20-2023 ARACHIDONIC ACID 12.0 % by wt Normal 8.6-15.6 [facility] Comment on above: Order Comment: Speci men Type: BLOOD SPECIMEN Ordering Facility: [facility] Address: [address] [place] [address] Performed By: #### Deshaun ORO, 5763-8 #### [facility] CLIA [id number] [address] [place] [address] [place] ARACHIDONIC ACID/EPA RATIO 45.3 High 3.7-40.7 [facility] Comment on above: Order Comment: Speci men Type: BLOOD SPECIMEN Ordering Facility: [facility] Address: [address] [place] [address] Result Comment: Rece ived Date: Performed By: #### Deshaun ORO, 5763-8 #### [facility] CLIA [id number] [address] [place] [address] [place] DHA 1.5 % by wt Normal 1.4-5.1 [facility] Comment on above: Order Comment: Speci men Type: BLOOD SPECIMEN Ordering Facility: [facility] Address: [address] [place] [address] Performed By: #### Deshaun ORO, 5763-8 #### [facility] CLIA [id number] [address] [place] [address] [place] DPA 0.9 % by wt Normal 0.8-1.8 [facility] Comment on above: Order Comment: Speci men Type: BLOOD SPECIMEN Ordering Facility: [facility] Address: [address] [place] [address] Performed By: #### Deshaun ORO, 5763-8 #### [facility] CLIA [id number] [address] [place] [address] [place] EPA 0.3 % by wt Normal 0.2-2.3 [facility] Comment on above: Order Comment: Speci men Type: BLOOD SPECIMEN Ordering Facility: [facility] Address: [address] [place] [address] Performed By: #### Deshaun OPPER, 5763-8 #### [facility] CLIA [id number] [address] [place] [address] [place] LINOLEIC ACID 28.9 % by wt Normal 18.6-29.5 [facility] Comment on above: Order Comment: Speci men Type: BLOOD SPECIMEN Ordering Facility: [facility] Address: [address] [place] [address] Performed By: #### Deshaun OPPER, 5763-8 #### [facility] CLIA [id number] [address] [place] [address] [place] OMEGA-3 TOTAL 2.7 % by wt Normal [facility] Comment on above: Order Comment: Speci men Type: BLOOD SPECIMEN Ordering Facility: [facility] Address: [address] [place] [address] Performed By: #### Deshaun DIAZPER, 5763-8 #### [facility] CLIA [id number] [address] [place] [address] [place] OMEGA-6 TOTAL 45.3 % by wt Normal [facility] Comment on above: Order Comment: Speci men Type: BLOOD SPECIMEN Ordering Facility: [facility] Address: [address] [place] [address] Result Comment: [facility] measures a number of omega-6 fatty acids with AA and LA being the two most abundant forms reported. Performed By: #### Deshaun OPPER, 5763-8 #### [facility] CLIA [id number] [address] [address] [place] OMEGA-6/OMEGA-3 RATIO 16.9 High 3.7-14.4 [facility] Comment on above: Order Comment: Speci men Type: BLOOD SPECIMEN Ordering Facility: [facility] Address: [address] [place] [address] Performed By: #### Deshaun OPPER, 5763-8 #### [facility] CLIA [id number] [address] [place] [address] [place] OMEGACHECK 2.7 % by wt Low >5.4 [facility] Comment on above: Order Comment: Speci men Type: BLOOD SPECIMEN Ordering Facility: [facility] Address: [address] [place] [address] Result Comment: Incr easing blood levels of long-chain n-3 fatty acids are associated with a lower risk of sudden cardiac (1). Based on the top (75th percentile) and bottom (25th percentile) quartiles of the CHL reference population, the following relative risk categories were established for OmegaCheck: A cut-off of >=5.5% by wt defines a population at optimal relative risk, 3.8-5.4% by wt defines a population at moderate relative risk, and <=3.7% by wt defines a population at high relative risk of sudden cardiac . The totality of the scientific evidence demonstrates that when consumption of fish oils is limited to 3 g/day or less of EPA and DHA, there is no significant risk for increased bleeding time beyond the normal range. A daily dosage of 1 gram of EPA and DHA lowers the circulating triglycerides by about 7-10% within 2 to 3 weeks. (Reference: 1-Agus et al. NE. 2002; 346: 5709-1326).This test was developed and its analytical performance characteristics have been determined by [facility]. It has not been cleared or approved by the U.S. Food and Drug Administration. This assay has been validated pursuant to the CLIA regulations and is used for clinical purposes. Performed By: #### Deshaun ORO, 5763-8 #### [facility] CLIA [id number] [address] [place] [address] [place] Vit B12 [facility] Cobalamin (Vitamin B12) [Mass/Vol] 481 pg/mL Normal 232-1245 [facility] Comment on above: Order Comment: Speci men Type: BLOOD SPECIMEN Ordering Facility: [facility] Address: [address] [place] [address] Performed By: #### Deshaun ORO, 5763-8 #### [facility] CLIA [id number] [address] [place] [address] [place] Zinc SerPl-mCncon 04-20-2023 Zinc [Mass/Vol] 117 ug/dL Normal 60-120 [facility] Comment on above: Order Comment: Speci men Type: BLOOD SPECIMEN Ordering Facility: [facility] Address: [address] [place] [address] Result Comment: This test was developed and its performance characteristics determined by [facility] [place] ([facility]). It has not been cleared or approved by the FDA. [facility] is regulated under CLIA as qualified to perform high-complexity testing. This test is used for clinical purposes. It should not be regarded as investigational or for research. Performed By: #### Deshaun ORO, 5763-8 #### [facility] CLIA [id number] [address] [place] [address] [place] CNOVon 03-29-2023 [place] [place] PASTOR HELLER ([id number]) 1990 F [place] Date Time Provider Department 03/29/23 8:30 AM SHARLENE KOHLI [facility] During your visit today, we recorded the following information about you: Sharlene Kohli LMT 03/29/2023 10:46 AM Signed Shoulder to mastoid and star pattern triggerbands, supraclavicular and suprascapular HTPs and CDs (right sided only) Myofascial release to right-sided trapezius, levator scapulae, supraclavicular fossa, rhomboids, supraspinatus, infraspinatus Neck and Scapula CARs sent via [employer] Referring Provider: EITAN MCCAULEY [[id number]] Allergies As of Date: 03/29/2023 Noted Allergy Reaction ADHESIVE TAPE-SILICONES 01/22/2022 2 - Rash BACTRIM (SULFAMETHOXAZOLE-TRIMETH*0 11/10/2019 4 - Hives SULFA (SULFONAMIDE ANTIBIOTICS) 11/10/2019 4 - Hives MORPHINE 08/03/2022 14 - Other: See Comments Date Reviewed: 03/29/2023 Reviewed by: Sharlene Kohli LMT - Fully Assessed Reason for Visit: New Patient Evaluation [154] Cmt: Right-sided upper body dysfunction, strength and range of motion diminishments, most notably through the neck, scapula, and thoracic spine, correlating strongly with COVID-19 (post-viral onset, has become chronic) Primary Visit Diagnosis:Segmental and somatic dysfunction [M99.09] Prescriptions as of 03/29/2023 - midodrine (PROAMATINE) 2.5 mg tablet Take 2.5 mg by mouth as directed. When SBP <100 - estrogens conjugated (PREMARIN) 0.625 mg tablet Take 1 tablet by mouth every morning. - NURTEC ODT 75 mg disintegrating tablet Take 75 mg by mouth once daily as needed (Migraines). - pantoprazole DR (PROTONIX) 40 mg tablet Take 40 mg by mouth once daily. - tiZANidine (ZANAFLEX) 4 mg tablet Take 4 mg by mouth daily at bedtime. Problem List As Of Date 03/29/2023 Noted Resolved Paralysis (HCC) [G83.9] 01/22/2022 POTS (postural orthostatic tachycardia syndrome*02/10/2023 Syncope [R55] 02/10/2023 Hyperlipidemia LDL goal <70 [E78.5] 02/10/2023 Migraine [G43.909] 02/10/2023 Arnold-Chiari malformation (HCC) [Q07.00] 02/10/2023 Encounter Status:Closed by SHARLENE KOHLI on 03/29/23 Normal [facility] CNOVon 02-26-2023 CNOV Office Visit ([facility] ) PASTOR HELLER ([id number]) 1990 F [employer] Date Time Provider Department 02/26/23 8:00 AM EITAN MCCAULEYMarc During your visit today, we recorded the following information about you: Pulse Respiration Blood pressure 78/minute 17/minute 118/81 Eitan Mccauley, DIRECTOR OF MARKETING ANALYTICS.CORNICE MAKER 02/26/2023 9:39 AM Signed [facility] Initial Evaluation Past[facility] Heller [facility] at the request of Siobhan Evangelista MD for evaluation of prolonged, > 28 days, symptoms attributed to COVID-19 infection. They have requested this consultation via eConsult and will be communicated to via the EMR or [place] Post Office Correspondence. HPI: Pastor Heller is a 32 year old female with primary symptoms as below Positive COVID-19 Test: yes Date of Positive Test: 04/13/202202/2022 Description of their course of COVID-19 illness 1. Symptoms began after 02/2022 AND 04/2022 infections 2. Hospitalization? No 3. Was the patient on oxygen? No 4. Was patient discharged on oxygen? No 5. Was there an ICU stay? No 6. Was the patient intubated? No 7. Were there any COVID-19 medications given? No 8. Were there significant complications from the patients COVID-19 Illness? No 9. Has the patient received the COVID Vaccine? YES. Which vaccine? [facility] COVID-19 Symptom Review Shortness of Breath or Dyspnea on Exertion Recurred persistent Cough Recurred persistent Chest discomfort/chest pain Recurred persistent Palpitations Recurred persistent Exertional intolerance Recurred persistent Fatigue Recurred persistent Dizziness Recurred persistent Syncope or Near syncope Recurred intermittent Fever Resolved Joint pain/Body aches Recurred persistent Altered taste/smell Never Lack of concentration/brain fog Recurred persistent Memory deficits Recurred persistent Diarrhea or nausea Present prior to COVID-19 infection and worsened Headaches Present prior to COVID-19 infection and worsened Difficulty sleeping Recurred intermittent HF Symptoms - Orthopnea/Edema Never Erectile Dysfunction N/A Changes in mood Present prior to COVID-19 infection and stable Urinary Symptoms Never Most significant symptoms: SOB Cough Chest discomfort Feels like an elephant sitting on her chest Hard to take a deep breath PFTs scheduled after today's visit Possible history of exercise-induced asthma in school No inhalers recently Dry cough which can wake her up at night Frequent wheezing when she is very out of breath No chest pain Palpitations Exertional intolerance Fatigue Dizziness Syncope Diagnosed with POTS Working with Cardiology BP fluctuates high and low Now on Midodrine No longer having syncopal episodes She has not implemented many lifestyle modifications Could not get out of bed for 3 days Myalgias/Arthralgias Headaches Sargents like a train hit me Tried Gabapentin Still with neck pain and stiffness Chronic migraines pre-COVID Now pain in newer areas Had eye exam this year Cognitive changes Brain fog 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 Won't remember writing her charts and documenting What she charts is accurate in sense of cohesiveness and correctness Distracted easily More trouble multitasking Sometimes struggles with Word finding difficulty Tried Strattera with initial improvement but she did not like to be on the medication due to side effects GI disturbances H/o IBS Intermittent constipation has worsened No abdominal pain Recent/previously completed testing since COVID-19 infection(s): EKG 02/10/2023 ECHO 02/10/2023 PFT pending 02/26/2023 CXR 01/16/2023 (Care Everywhere) TILT TABLE TEST 03/06/2022 Established with the following specialists: Neuromuscular - Ortega Natarajan, DIRECTOR OF MARKETING ANALYTICS.CORNICE MAKER, last seen 05/29/2022 Neurosurgery - Dr. David Rojo, last seen 02/19/2022 Cardiology - Dr. Rita Dougherty, last seen 02/10/2023 Cardiology Syncope - Dr. Irina Finley, upcoming appt 08/17/2023 Epilepsy - Dr. Laury Magaña, last seen 03/25/2022 Neurology FMD - Dr. Prudence Jo, last seen 03/25/2022 Cardiology - [facility], Dr. Renato Mcdonald, last seen 01/15/2023 Review of Systems Constitutional: Positive for activity change and fatigue. Negative for fever. Respiratory: Positive for cough, chest tightness (pressure), shortness of breath and wheezing. Cardiovascular: Positive for palpitations. Negative for chest pain. Gastrointestinal: Positive for constipation. Negative for diarrhea, nausea and vomiting. Musculoskeletal: Positive for neck pain and neck stiffness. Skin: Negative for rash. Neurological: Positive for dizziness, syncope and headaches. Negative for numbness. Psychiatric/Behavioral: Positive for decreased concentration and sleep disturbance. Negative for confusion. PAST MEDICAL HISTORY Diagnosis Date ShellchellyAnni huddleston (more content not included)... Normal [facility] SPIROMETRY - BASELINE AND PO ST DILATORon 02-26-2023 [facility] US PELVIS AND TRANSVAGon US PELVIS AND TRANSVAG EXAM: Pelvic ultr asound. HISTORY: . Dyspareunia . COMPARISON: None. TECHNIQUE: Transabdominal and transvaginal scanning was performed FINDINGS: Scanning of the pelvis demonstrates the uterus to be absent. Right ovary measures 3.7 x 2.5 x 2.3 cm. Color-flow is noted. Resistive indexes 0.39. Follicles are noted. Left ovary measures 2.9 x 2.2 x 2.7 cm. Color-flow is noted. Resistive indexes 0.46. Follicles are noted. No masses are noted within the pelvis. No free fluid is noted within the cul-de-sac. IMPRESSION: 1. Absent uterus. 2. Normal-appearing ovaries with color flow. Electronically authenticated by: LOAN SAMAYOA Date: 2022-06-04 08:02 Normal [facility] Basophils Auto (Bld) [#/Vol] Ordered By: Carlito Mae on 01-21-2022 Basophils (Bld) [#/Vol] 0.1 10*3/uL 0.0-0.2 [facility] Basophils/100 WBC Auto (Bld) Ordered By: Carlito Mae on 01-21-2022 Basophils/100 WBC (Bld) 0.7 % . [facility] Body fluid albumin measureme nt (mass/volume)Ordered By: Carlito Mae on 01-21-2022 Albumin (Body fld) [Mass/Vol] 3.8 g/dL 3.2-5.5 [facility] COVID-19 Antigenon COVID-19 Antigen Healthcare Worker?: N Reference Range: Negative Negative results, from patients with symptom onset beyond five days, should be treated as presumptive and confirmation with a molecular assay, if necessary, for patient management, may be performed. Negative results do not rule out COVID-19 and should not be used as the sole basis for treatment or patient management decisions, including infection control decisions. Negative results should be considered in the context of a patient's recent exposures, history and the presence of clinical signs and symptoms consistent with COVID-19. The Antony SARS Antigen CRISTINA does not differentiate between SARS-CoV and SARS-CoV-2. This test was developed and its performance characteristic determined by [employer] and validated at [facility]. This test has not been FDA cleared or approved. This test has been authorized by FDA under an Emergency Use Authorization (EUA). This test has been validated in accordance with the FDA's Guidance Document (Policy for Diagnostics Testing in Laboratories Certified to Perform High Complexity Testing under CLIA prior to Emergency Use Authorization for Coronavirus Disease-2019 during the Public Health Emergency) issued on July 13, 2019. This test is only authorized for the duration of time the declaration that circumstances exist justifying the authorization of the emergency use of in vitro diagnostic tests for detection of SARS-CoV-2 virus and/or diagnosis of COVID-19 infection under section 564(b)(1) of the Act, 21 U.S.C. 360bbb-3(b)(1), unless the authorization is terminated or revoked sooner. SARS-CoV+SARS-CoV-2 (COVID-19) Ag [Presence] in Respiratory specimen by Rapid immunoassay Negative for SARS Antigen by CRISTINA PERFORMED BY: [place] [address] PATHOLOGIST DRAIN TILE PRESS OPERATOR KEMAR DIALLO M.D. Normal [facility] Comment on above: Performed By: #### S OFPHILIP, COVID-19 ANTONY #### [facility] [address] COVID-19 SOFIAOrdered By: Silverio Mae on 01-21-2022 SARS-CoV+SARS-CoV-2 (COVID-19) Ag IA.rapid Ql (Resp) Negative Negative [facility] Comment on above: This is a duplicate Antony SARS Antigen (CRISTINA) result to be used for statistical tracking purpose only. Complete Blood Count Auto Di ffon 01-21-2022 Basophils (Bld) [#/Vol] 0.1 10*3/uL Normal 0.0-0.2 [facility] Comment on above: Result Comment: PERF ORMED BY: [place] [address] PATHOLOGIST DRAIN TILE PRESS OPERATOR KEMAR DIALLO M.D. Performed By: #### C BC, CMP #### [address] Basophils/100 WBC (Bld) 0.7 % Normal . [facility] Comment on above: Performed By: #### C BC, CMP #### [address] Eosinophils (Bld) [#/Vol] 0.2 10*3/uL Normal 0.0-0.45 [facility] Comment on above: Performed By: #### C BC, CMP #### [address] Eosinophils/100 WBC (Bld) 1.6 % Normal . [facility] Comment on above: Performed By: #### C BC, CMP #### [address] Erythrocyte distribution width (RBC) [Ratio] 12.9 % Normal 11.9-15.3 [facility] Comment on above: Performed By: #### C BC, CMP #### [address] [address] Hematocrit (Bld) [Volume fraction] 34.8 % Normal 34.0-46.4 [facility] Comment on above: Performed By: #### C BC, CMP #### [place] [address] [place] Hemoglobin (Bld) [Mass/Vol] 11.2 g/dL Low 11.8-15.4 [facility] Comment on above: Performed By: #### C BC, CMP #### [place] [address] [place] Lymphocytes (Bld) [#/Vol] 1.6 10*3/uL Normal 1.00-4.8 [facility] Comment on above: Performed By: #### C BC, CMP #### [facility] [address] [place] [address] [place] Lymphocytes/100 WBC (Bld) 16.0 % Normal . [facility] Comment on above: Performed By: #### C BC, CMP #### [facility] [address] MCH (RBC) [Entitic mass] 30.5 pg Normal 24.7-34.3 [facility] Comment on above: Performed By: #### C BC, CMP #### [facility] [address] MCV (RBC) [Entitic vol] 94.3 fL Normal 80-100 [facility] Comment on above: Performed By: #### C BC, CMP #### [facility] [address] Mean Corpuscular HGB Conc 32.3 g/dL Normal 32.0-35.0 [facility] Comment on above: Performed By: #### C BC, CMP #### [facility] [address] [place] [address] [place] Monocytes (Bld) [#/Vol] 0.7 10*3/uL Normal 0.0-0.8 [facility] Comment on above: Performed By: #### C BC, CMP #### [facility] [address] [place] [address] [place] Monocytes/100 WBC (Bld) 7.2 % Normal . [facility] Comment on above: Performed By: #### C BC, CMP #### [facility] [address] [place] [address] [place] Neutrophils (Bld) [#/Vol] 7.6 10*3/uL Normal 1.8-7.7 [facility] Comment on above: Performed By: #### C BC, CMP #### [facility] [address] Neutrophils/100 WBC (Bld) 74.5 % Normal . [facility] Comment on above: Performed By: #### C BC, CMP #### [facility] [address] Nucleated RBC/100 WBC (Bld) [Ratio] 0.1 % Normal 0-0.5 [facility] Comment on above: Performed By: #### C BC, CMP #### [facility] [address] Platelet mean volume (Bld) [Entitic vol] 11.9 fL High 6.3-10.7 [facility] Comment on above: Performed By: #### C BC, CMP #### [facility] [address] Platelets (Bld) [#/Vol] 221 10*3/uL Normal 150-450 [facility] Comment on above: Performed By: #### C BC, CMP #### [address] RBC (Bld) [#/Vol] 3.69 10*6/uL Normal 3.60-5.00 [facility] Comment on above: Performed By: #### C BC, CMP #### [address] WBC (Bld) [#/Vol] 10.1 10*3/uL Normal 4.5-11.0 [facility] Comment on above: Performed By: #### C BC, CMP #### [address] Comprehensive Metabolic Pane kirby 01-21-2022 Albumin [Mass/Vol] 3.8 g/dL Normal 3.2-5.5 [facility] Comment on above: Performed By: #### C BC, CMP #### [address] Albumin/Globulin [Mass ratio] 1.7 {ratio} Normal [facility] Comment on above: Performed By: #### C BC, CMP #### [address] ALP [Catalytic activity/Vol] 44 U/L Normal 32-92 [facility] Comment on above: Performed By: #### C BC, CMP #### [facility] [address] [place] [id number] [place] ALT [Catalytic activity/Vol] 15 U/L Normal 10-60 [facility] Comment on above: Performed By: #### C BC, CMP #### [facility] [address] [place] [id number] [facility] Anion gap [Moles/Vol] 12.3 mmol/L Normal 6.0-15.0 [facility] Comment on above: Performed By: #### C BC, CMP #### [facility] [address] [place] [id number] [facility] AST [Catalytic activity/Vol] 19 U/L Normal 10-42 [facility] Comment on above: Performed By: #### C BC, CMP #### [facility] [address] [place] [id number] [facility] Bilirubin [Mass/Vol] 0.4 mg/dL Normal 0.3-1.2 [facility] Comment on above: Performed By: #### C BC, CMP #### [facility] [address] [place] [id number] [place] Calcium [Mass/Vol] 8.0 mg/dL Low 8.2-10.2 [facility] Comment on above: Performed By: #### C BC, CMP #### [facility] [address] [place] [id number] [place] Chloride [Moles/Vol] 109 mmol/L Normal 95-114 [facility] Comment on above: Performed By: #### C BC, CMP #### [facility] [address] [place] [id number] [place] CO2 [Moles/Vol] 21.2 mmol/L Low 22.0-30.0 [facility] Comment on above: Performed By: #### C BC, CMP #### [facility] [address] [place] [id number] [place] Creatinine [Mass/Vol] 0.59 mg/dL Normal 0.44-1.03 [facility] Comment on above: Performed By: #### C BC, CMP #### [address] Creatinine Clr Calc Pharmacy 133.87 [facility] Comment on above: Result Comment: PERF ORMED BY: [place] [address] PATHOLOGIST DRAIN TILE PRESS OPERATOR KEMAR DIALLO M.D. Performed By: #### C BC, CMP #### [address] Estimated GFR ( Kim > 60 [facility] Comment on above: Result Comment: GFR estimated reference range: According to KDOQI guidelines, <60 ml/min/1.73m2 is sufficient to diagnose a patient with chronic kidney disease. Performed By: #### C BC, CMP #### [address] Estimated GFR (Non- Am > 60 [facility] Comment on above: Performed By: #### C BC, CMP #### [address] Globulin (S) [Mass/Vol] 2.3 g/dL [facility] Comment on above: Performed By: #### C BC, CMP #### [address] Glucose [Mass/Vol] 74 mg/dL Normal 70-100 [facility] Comment on above: Result Comment: [place] Glucose Reference Range is dependent on time and content of last meal. Glucose of more than 200 mg/dL in a nonstressed, ambulatory subject supports the diagnosis of Diabetes Mellitus. ADA recommended reference range Performed By: #### C BC, CMP #### [address] Potassium [Moles/Vol] 3.5 mmol/L Normal 3.5-5.1 [facility] Comment on above: Performed By: #### C BC, CMP #### [address] Protein [Mass/Vol] 6.1 g/dL Normal 6.1-7.9 [facility] Comment on above: Performed By: #### C BC, CMP #### [facility] [address] [place] [address] [place] Sodium [Moles/Vol] 139 mmol/L Normal 136-146 [facility] Comment on above: Performed By: #### C BC, CMP #### [facility] [address] [place] [address] [place] Urea nitrogen [Mass/Vol] 9 mg/dL Normal 9-23 [facility] Comment on above: Performed By: #### C BC, CMP #### [facility] [address] Creatinine and Glomerular fi ltration rate.predicted panel (S/P/Bld)Ordered By: Carlito Mae on 01-21-2022 Creatinine [Mass/Vol] 0.59 mg/dL 0.44-1.03 [facility] ECG 12 lead ECGon 01-21-2022 ECG 12 lead ECG [facility] [address] [place] [address] [place] [address] Electrocardiograph Report Signed Patient: Pastor Heller MR#: [id number] 62 : 1990 Acct:[id number] Age/Sex: 31 / F ADM Date: 01/21/22 Loc: ER Room: Type: [facility] ER Attending Dr: Ordering Provider: Carlito Mae PA-C Date of Service: 01/21/2204/02/1716 ECG/ECG 12 lead ECG: Syncope Copies to: Test Reason : Blood Pressure : 132/082 mmHG Vent. Rate : 100 BPM Atrial Rate : 100 BPM P-R Int : 136 ms QRS Dur : 074 ms QT Int : 326 ms P-R-T Axes : 080 070 063 degrees QTc Int : 420 ms Normal sinus rhythm Nonspecific ST abnormality Abnormal ECG When compared with ECG of 11-DEC-2021 01:52, No significant change was found Confirmed by FRANDY CLAYTON DO ([id number]) on 01/21/2022 6:40:14 PM Referred By: Electronically Signed By:FRANDY CLAYTON DO Transcribed By: MUS Signed By Frandy Clayton DO 10/12/ 22 1840 [facility] Eosinophils Auto (Bld) [#/Vo l]Ordered By: Carlito Mae on 01-21-2022 Eosinophils (Bld) [#/Vol] 0.2 10*3/uL 0.0-0.45 [facility] Eosinophils/100 WBC Auto (Bl d)Ordered By: Carlito Mae on 01-21-2022 Eosinophils/100 WBC (Bld) 1.6 % . [facility] Erythrocyte distribution wid th Auto (RBC) [Ratio]Ordered By: Carlito Mae on 01-21-2022 Erythrocyte distribution width (RBC) [Ratio] 12.9 % 11.9-15.3 [facility] Estimated glomerular filtrat ion rate (GFR) non- AmericanOrdered By: Carlito Mae on 01-21-2022 GFR/1.73 sq M.predicted among non-blacks MDRD (S/P/Bld) [Vol rate/Area] > 60 mL/Min [facility] Globulin Calc (S) [Mass/Vol] Ordered By: Carlito Mae on 01-21-2022 Globulin (S) [Mass/Vol] 2.3 g/dL [facility] Hematocrit Auto (Bld) [Volum e fraction]Ordered By: Carlito Mae on 01-21-2022 Hematocrit (Bld) [Volume fraction] 34.8 % 34.0-46.4 [facility] Hemoglobin [Mass/volume] in BloodOrdered By: Carlito Mae on 01-21-2022 Hemoglobin (Bld) [Mass/Vol] 11.2 g/dL 11.8-15.4 [facility] Laboratory - Hematology and Cell countsOrdered By: Carlito Mae on 01-21-2022 Nucleated RBC/100 WBC (Bld) [Ratio] 0.1 % 0-0.5 [facility] Leukocytes [#/volume] in Blo od by Automated countOrdered By: Carlito Mae on 01-21-2022 WBC (Bld) [#/Vol] 10.1 10*3/uL 4.5-11.0 [facility] Lymphocytes Auto (Bld) [#/Vo l]Ordered By: Carlito Mae on 01-21-2022 Lymphocytes (Bld) [#/Vol] 1.6 10*3/uL 1.00-4.8 [facility] Lymphocytes/100 WBC Auto (Bl d)Ordered By: Carlito Mae on 01-21-2022 Lymphocytes/100 WBC (Bld) 16.0 % . [facility] MCH Auto (RBC) [Entitic mass ]Ordered By: Carlito Mae on 01-21-2022 MCH (RBC) [Entitic mass] 30.5 pg 24.7-34.3 [facility] MCHC Auto (RBC) [Mass/Vol]Or dered By: Carlito Mae on 01-21-2022 MCHC (RBC) [Mass/Vol] 32.3 g/dL 32.0-35.0 [facility] MCV Auto (RBC) [Entitic vol] Ordered By: Carlito Mae on 01-21-2022 MCV (RBC) [Entitic vol] 94.3 fL 80-100 [facility] MR cervical spine wo conon 1 MR cervical spine wo con [facility] [place] [address] MRI Report Signed Patient: Pastor Heller MR#: [id number] 62 : 1990 Acct:[id number] Age/Sex: 31 / F ADM Date: 01/21/22 Loc: ER Room: Type: [facility] ER Attending Dr: Copies to: Carlito Mae PA-C Ordering Provider: Carlito Mae PA-C Date of Service: 01/21/22 MR/MR cervical spine wo con: flaccid arms abd numb EXAMINATION: MRI OF THE CERVICAL SPINE WITHOUT CONTRAST CLINICAL DATA: Sudden onset of paralysis at the arms and legs. COMPARISON: MRI brain 12/11/2021 TECHNIQUE: Multiecho imaging was performed in the sagittal and axial plane without contrast administration. FINDINGS: There is motion artifact. Alignment is maintained on the sagittal images. There is normal signal intensity within the imaged bone marrow. There is mild cerebellar tonsillar herniation compatible with Chiari malformation. This is similar the recent comparison brain MRI. The cord is normal in caliber and signal intensity throughout its imaged course. At C2-3, there is no disc disease or stenosis. At C3-4, there is minor disco-osteophytic bulging, without significant associated stenosis. At C4-5, no MRI abnormalities are seen. At C5-6, there is minor disco-osteophytic bulging with subtle thecal sac effacement. There is no foraminal stenosis. At C6-7, there is mild disco osteophytic bulging with a tiny central protrusion. There is mild thecal sac effacement though no contact of the cord. The neural foramen are patent. At the cervicothoracic junction, no abnormalities are seen. MR/MR cervical spine wo con IMPRESSION: CHIARI I MALFORMATION, ALSO SEEN ON RECENT BRAIN MRI. MINOR DISCOVERTEBRAL DEGENERATIVE CHANGES, GREATEST AT C6-7. THERE IS NO SIGNIFICANT ASSOCIATED STENOSIS. Impression dictated by: Jazmin Bhatia M.D.01/21/2022 8:10 PM Dictation Location: [place] [address] Transcribed By: [facility] 01/21/222009 Dictated By: Jazmin Bhatia MD 01/21/222001 Signed By: 01/21/222009 Normal [facility] Monocytes Auto (Bld) [#/Vol] Ordered By: Carlito Mae on 01-21-2022 Monocytes (Bld) [#/Vol] 0.7 10*3/uL 0.0-0.8 [facility] Monocytes/100 WBC Auto (Bld) Ordered By: Carlito Mae on 01-21-2022 Monocytes/100 WBC (Bld) 7.2 % . [facility] Neutrophils Auto (Bld) [#/Vo l]Ordered By: Carlito Mae on 01-21-2022 Neutrophils (Bld) [#/Vol] 7.6 10*3/uL 1.8-7.7 [facility] Neutrophils/100 WBC Auto (Bl d)Ordered By: Carlito Mae on 01-21-2022 Neutrophils/100 WBC (Bld) 74.5 % . [facility] No Panel InformationOrdered By: Carlito Mae on 01-21-2022 Estimated GFR () > 60 mL/Min [facility] Comment on above: GFR estimated refere nce range: According to KDOQI guidelines, <60 ml/min/1.73m2 is sufficient to diagnose a patient with chronic kidney disease. Pharmacy Creatinine Clearance (Chem 133.87 [facility] SARS Antigen (LFIA) [facility] Platelet mean volume Auto (B ld) [Entitic vol]Ordered By: Carlito Mae on 01-21-2022 Platelet mean volume (Bld) [Entitic vol] 11.9 fL 6.3-10.7 [facility] Platelets Auto (Bld) [#/Vol] Ordered By: Carlito Mae on 01-21-2022 Platelets (Bld) [#/Vol] 221 10*3/uL 150-450 [facility] Protein [Mass/volume] in Ser um or PlasmaOrdered By: Carlito Mae on 01-21-2022 Protein [Mass/Vol] 6.1 g/dL 6.1-7.9 [facility] RBC Auto (Bld) [#/Vol]Ordere d By: Carlito Mae on 01-21-2022 RBC (Bld) [#/Vol] 3.69 10*6/uL 3.60-5.00 [facility] Serum or plasma alanine tay otransferase measurement without P-5'-P (enzymatic activiOrdered By: Carlito Mae on 01-21-2022 ALT No additional P-5'-P [Catalytic activity/Vol] 15 U/L [facility] Serum or plasma albumin/glob ulin mass ratioOrdered By: Carlito Mae on 01-21-2022 Albumin/Globulin [Mass ratio] 1.7 {ratio} [facility] Serum or plasma alkaline livan sphatase measurement (enzymatic activity/volume)Ordered By: Carlito Mae on 01-21-2022 ALP [Catalytic activity/Vol] 44 U/L 32-92 [facility] Serum or plasma anion gap de terminationOrdered By: Carlito Mae on 01-21-2022 Anion gap [Moles/Vol] 12.3 mmol/L 6.0-15.0 [facility] Serum or plasma aspartate am inotransferase measurement (enzymatic activity/volume)Ordered By: Carlito Mae on 01-21-2022 AST [Catalytic activity/Vol] 19 U/L 1042 [facility] Serum or plasma calcium walter urement (mass/volume)Ordered By: Carlito Mae on 01-21-2022 Calcium [Mass/Vol] 8.0 mg/dL 8.2-10.2 [facility] Serum or plasma chloride killian surement (moles/volume)Ordered By: Carlito Mae on 01-21-2022 Chloride [Moles/Vol] 109 mmol/L 95-114 [facility] Serum or plasma glucose walter urement (mass/volume)Ordered By: Carlito Mae on 01-21-2022 Glucose [Mass/Vol] 74 mg/dL 70-100 [facility] Comment on above: ADA recommended refe rence rangeRandom Glucose Reference Range is dependent on time and content of last meal. Glucose of more than 200 mg/dL in a nonstressed, ambulatory subject supports the diagnosis of Diabetes Mellitus. Serum or plasma potassium me asurement (moles/volume)Ordered By: Carlito Mae on 01-21-2022 Potassium [Moles/Vol] 3.5 mmol/L 3.5-5.1 [facility] Serum or plasma sodium measu rement (moles/volume)Ordered By: Carlito Mae on 01-21-2022 Sodium [Moles/Vol] 139 mmol/L 136-146 [facility] Serum or plasma total biliru bin measurement (mass/volume)Ordered By: Carlito Mae on 01-21-2022 Bilirubin [Mass/Vol] 0.4 mg/dL 0.3-1.2 [facility] Serum or plasma total carbon dioxide measurement (moles/volume)Ordered By: Carlito Mae on 01-21-2022 CO2 [Moles/Vol] 21.2 mmol/L 22.0-30.0 [facility] Serum or plasma urea nitroge n measurement (mass/volume)Ordered By: Carlito Mae on 01-21-2022 Urea nitrogen [Mass/Vol] 9 mg/dL 9-23 [facility] Antony Ag Negativeon 01-22-20 Antoyn Ag Negative Negative Normal Negative [facility] Comment on above: Result Comment: This is a duplicate Antony SARS Antigen (CRISTINA) result to be used for statistical tracking purpose only. PERFORMED BY: [place] [address] [place] [address] PATHOLOGIST DRAIN TILE PRESS OPERATOR KEMAR DIALLO M.D. Performed By: #### S EDWIN CANTRELL-19 ANTONY #### [address] XR pre/post mri xrayon 01-21 XR pre/post mri xray [facility] [place] [address] XRay Report Signed Patient: Pastor Heller MR#: [id number] 62 : 1990 Acct:[id number] Age/Sex: 31 / F ADM Date: 01/21/22 Loc: ER Room: Type: [facility] ER Attending Dr: Copies to: Carlito Mae PA-C Ordering Provider: Carlito Mae PA-C Date of Service: 01/21/22 XR/XR pre/post mri xray: PRE MRI CERVICAL PRE-MRI CERVICAL SPINE - 3 views COMPARISON: CT 12/01/2021 CLINICAL DATA: Sudden onset of paralysis at the arms and legs Lateral and both oblique views were obtained. There is reversal of the normal cervical curvature. There is minimal anterolisthesis of C2 on C3 and C3 on C4. No acute fractures are identified. The disc spaces are maintained. There is no significant neural foraminal narrowing within limits of positioning. There is no prevertebral soft tissue swelling. XR/XR pre/post mri xray IMPRESSION: LOSS OF THE NORMAL CERVICAL CURVATURE. NO ACUTE FINDINGS. Impression dictated by: Jazmin Bhatia M.D.01/21/2022 8:35 PM Dictation Location: [place] [address] Transcribed By: [facility] 01/21/222034 Dictated By: Jazmin Bhatia MD 01/21/222032 Signed By: 01/21/222034 Normal [facility] Creatinine [Mass/volume] in UrineOrdered By: Padmini Moreno on 12-12-2021 Creatinine (U) [Mass/Vol] 96.8 mg/dL Not Estab. [facility] MR head/brain wo conon 12-12 MR head/brain wo con [facility] [place] [address] MRI Report Signed Patient: Pastor Heller MR#: [id number] 62 : 1990 Acct:[id number] Age/Sex: 31 / F ADM Date: 12/11/21 Loc: Room: 7Q0963-9 Type: ADM INOo Attending Dr: Padmini Moreno DO Copies to: DO Padmini [place] DO Ordering Provider: Gavin Lacey DO Date of Service: 12/11/21 MR/MR head/brain wo con: symptomatic chiari, please do CSF flow study MR head/brain wo con 12/11/2021 3:47 PM SIGN AND SYMPTOMS: symptomatic chiari, please do CSF flow study PROTOCOL: Sagittal T2 propeller with axial and sagittal phase contrast cine imaging for CSF flow. COMPARISON: CT from 12/01/2021 FINDINGS: Extra axial spaces: Age appropriate. Hemorrhage: None. Ventricular system: Within normal limits. Basal cisterns: Within normal limits and not effaced. Cerebral parenchyma: Normal in signal. Midline shift: None.. Cerebellum: There is a downward pointing right cerebellar tonsil 9 mm below the foramen magnum consistent with a history of Chiari I malformation. The left cerebellar tonsil is low-lying with only 1 to 2 mm of ectopia. The odontoid process is mildly retroflexed contributing to mild narrowing of the foramen magnum. Brainstem: Within normal limits. OTHER: Calvarium: Normal marrow signal. Vascular system: Satisfactory flow voids within the anterior and posterior circulation. Visualized Paranasal sinuses: The cortical thickening is noted in the right maxillary sinus. Visualized Orbits: Within normal limits. Visualized upper cervical spine: Within normal limits. Sella and skull base: Within normal limits. CSF flow: There is adequate spin dephasing in the anterior and posterior aspects of the foramen magnum and upper cervical canal. There is adequate spin dephasing within the third ventricle, aqueduct of Sylvius, fourth ventricle, and foramen Magendie. MR/MR head/brain wo con IMPRESSION: Findings consistent with a Chiari I malformation as noted above. There is no evidence of CSF flow restriction within the posterior fossa or foramen magnum. Impression dictated by: Crys Grant M.D.12/12/2021 12:33 PM Dictation Location: [place] [address] Transcribed By: MAURA 12/12/21 1233 Dictated By: Crys Grant II, MD 12/12/21 1224 Signed By: 12/12/21 1233 Normal [facility] Metanephrine Urine Randomon 12-12-2021 Creatinine, Random Ur 96.8 mg/dL Normal Not Estab. [facility] Comment on above: Performed By: #### S TAMIA COVID- ANTONY #### [facility] [address] [place] [id number] [facility] Metanephrine Random Urine 140 Normal Undefined [facility] Comment on above: Result Comment: This test was developed and its performance characteristics determined by [facility]. It has not been cleared or approved by the Food and Drug Administration. Performed By: #### S DENNISE CANTRELLID- ANTONY #### [facility] [address] Metanephrine/Creatinin e Ratio 0.4 Normal 0.0-1.0 [facility] Comment on above: Result Comment: Resu lt Units: ug/mg Creat Performed at: [facility] [address] [id number] Field Research Assistant: Stefan Vargas MD, Phone: [phone] Performed By: #### S DENNISE CANTRELLID- ANTONY #### [place] [id number] [facility] Normetanephrine Random Urine 199 Normal [facility] Comment on above: Result Comment: This test was developed and its performance characteristics determined by [facility]. It has not been cleared or approved by the Food and Drug Administration. PERFORMED BY: [place] [address] PATHOLOGIST DRAIN TILE PRESS OPERATOR KEMAR DIALLO M.D. Performed By: #### S DENNISE CANTRELLID- ANTONY #### [place] [address] [place] Metanephrines [Mass/volume] in 24 hour UrineOrdered By: Padmini Moreno on 12-12-2021 Metanephrines (24H U) [Mass/Vol] 140 ug/L Undefined [facility] Comment on above: This test was develo ped and its performance characteristicsdetermined by [facility]. It has not been cleared orapproved by the Food and Drug Administration. Metanephrines, Frac, Pl, [place] che[place] 12-12-2021 Metanephrines, P 44.1 pg/mL Normal 0.0-88.0 [facility] Comment on above: Order Comment: Fasti ng? (See Test/Proc Notes): N Result Comment: This test was developed and its performance characteristics determined by [facility]. It has not been cleared or approved by the Food and Drug Administration. Performed at: [address] [id number] Field Research Assistant: Stefan Vargas MD, Phone: [phone] PERFORMED BY: [facility] [address] [place] [address] PATHOLOGIST DRAIN TILE PRESS OPERATOR KEMAR DIALLO M.D. Performed By: #### M ET FRAC P #### [facility] , Normetanephrine, P 56.1 pg/mL Normal 0.0-210.1 [facility] Comment on above: Order Comment: Fasti ng? (See Test/Proc Notes): N Result Comment: This test was developed and its performance characteristics determined by [facility]. It has not been cleared or approved by the Food and Drug Administration. Performed By: #### M ET FRAC P #### [facility] , Metanephrines/Creatinine [Ma ss Ratio] in UrineOrdered By: Padmini Moreno on 12-12-2021 Metanephrines/Creatini ne (U) [Mass ratio] 0.4 0.0-1.0 [facility] Comment on above: Result Units: ug/mg CreatPerformed at: [place] [address] [place], [place] [id number] Director: Stefan Vargas MD, Phone: [phone] No Panel InformationOrdered By: Padmini Moreno on 12-12-2021 Plasma Normetanephrine 56.1 pg/mL 0.0-210.1 [facility] Comment on above: This test was develo ped and its performance characteristicsdetermined by [facility]. It has not been cleared orapproved by the Food and Drug Administration. Normetanephrine [Mass/volume ] in 24 hour UrineOrdered By: Padmini Moreno on 12-12-2021 Normetanephrine (24H U) [Mass/Vol] 199 ug/L Undefined [facility] Comment on above: This test was develo ped and its performance characteristicsdetermined by [facility]. It has not been cleared orapproved by the Food and Drug Administration. Serum or plasma free metanep hrine measurement (mass/volume)Ordered By: Padmini Moreno on 12-12-2021 Metanephrine Free [Mass/Vol] 44.1 pg/mL 0.0-88.0 [facility] Comment on above: This test was develo ped and its performance characteristicsdetermined by [facility]. It has not been cleared orapproved by the Food and Drug Administration.Performed at: [address] [id number] Director: Stefan Vargas MD, Phone: [phone] Basic Metabolic Panelon 090 Anion gap [Moles/Vol] 10.8 mmol/L Normal 6.0-15.0 [facility] Comment on above: Performed By: #### S TAMIA COVID-19 ANTONY #### [facility] [address] [place] [id number] [place] Calcium [Mass/Vol] 8.5 mg/dL Normal 8.2-10.2 [facility] Comment on above: Performed By: #### S TAMIA COVID-19 ANTONY #### [facility] [address] [place] [address] [place] Chloride [Moles/Vol] 108 mmol/L Normal 95-114 [facility] Comment on above: Performed By: #### S DENNISE CANTRELLID-19 ANTONY #### [facility] [address] [place] [address] [place] CO2 [Moles/Vol] 22.2 mmol/L Normal 22.0-30.0 [facility] Comment on above: Performed By: #### S YOLAPHILIP COVID-19 ANTONY #### [facility] [address] Creatinine [Mass/Vol] 0.72 mg/dL Normal 0.44-1.03 [facility] Comment on above: Performed By: #### S YOLAPHILIP COVID-19 ANTONY #### [facility] [address] [place] [address] [place] Creatinine Clr Calc Pharmacy 91.11 [facility] Comment on above: Result Comment: PERF ORMED BY: [place] [address] PATHOLOGIST DRAIN TILE PRESS OPERATOR KEMAR DIALLO M.D. Performed By: #### S YOLAPHILIP COVID-19 ANTONY #### [address] Estimated GFR ( Kim > 60 [facility] Comment on above: Result Comment: GFR estimated reference range: According to KDOQI guidelines, <60 ml/min/1.73m2 is sufficient to diagnose a patient with chronic kidney disease. Performed By: #### S YOLAPHILIP DENNISEID- ANTONY #### [address] Estimated GFR (Non- Am > 60 [facility] Comment on above: Performed By: #### S YOLAPHILIP COVID- ANTONY #### [facility] [address] [place] [address] Glucose [Mass/Vol] 93 mg/dL Normal 70-100 [facility] Comment on above: Result Comment: [place] om Glucose Reference Range is dependent on time and content of last meal. Glucose of more than 200 mg/dL in a nonstressed, ambulatory subject supports the diagnosis of Diabetes Mellitus. ADA recommended reference range Performed By: #### S TAMIA COVID-19 ANTONY #### [facility] [address] Potassium [Moles/Vol] 4.0 mmol/L Normal 3.5-5.1 [facility] Comment on above: Performed By: #### S OFIANEG, COVID-19 ANTONY #### [facility] [address] Sodium [Moles/Vol] 137 mmol/L Normal 136-146 [facility] Comment on above: Performed By: #### S OFIANEG, COVID-19 ANTONY #### [facility] [address] Urea nitrogen [Mass/Vol] 13 mg/dL Normal 9-23 [facility] Comment on above: Performed By: #### S OFIANEG, COVID-19 ANTONY #### [facility] [address] Basophils Auto (Bld) [#/Vol] Ordered By: Sirena Navarro on 12-11-2021 Basophils (Bld) [#/Vol] 0.0 10*3/uL 0.0-0.2 [facility] Basophils/100 WBC Auto (Bld) Ordered By: Sirena Navarro on 12-11-2021 Basophils/100 WBC (Bld) 0.4 % . [facility] Blood hemoglobin measurement (mass/volume)Ordered By: Sirena Navarro on 12-11-2021 Hemoglobin (Bld) [Mass/Vol] 11.7 g/dL 11.8-15.4 [facility] Blood leukocytes automated c ount (number/volume)Ordered By: Sirena Navarro on 12-11-2021 WBC (Bld) [#/Vol] 10.5 10*3/uL 4.5-11.0 [facility] Complete Blood Count Auto Di ffon 12-11-2021 Basophils (Bld) [#/Vol] 0.0 10*3/uL Normal 0.0-0.2 [facility] Comment on above: Result Comment: PERF ORMED BY: [place] [address] PATHOLOGIST DRAIN TILE PRESS OPERATOR KEMAR DIALLO M.D. Performed By: #### C BC, BMP #### [facility] [address] [place] [address] Basophils/100 WBC (Bld) 0.4 % Normal . [facility] Comment on above: Performed By: #### C BC, BMP #### [address] Eosinophils (Bld) [#/Vol] 0.4 10*3/uL Normal 0.0-0.45 [facility] Comment on above: Performed By: #### C BC, BMP #### [address] Eosinophils/100 WBC (Bld) 4.0 % Normal . [facility] Comment on above: Performed By: #### C BC, BMP #### [address] Erythrocyte distribution width (RBC) [Ratio] 13.0 % Normal 11.9-15.3 [facility] Comment on above: Performed By: #### C BC, BMP #### [address] Hematocrit (Bld) [Volume fraction] 35.7 % Normal 34.0-46.4 [facility] Comment on above: Performed By: #### C BC, BMP #### [address] Hemoglobin (Bld) [Mass/Vol] 11.7 g/dL Low 11.8-15.4 [facility] Comment on above: Performed By: #### C BC, BMP #### [address] Lymphocytes (Bld) [#/Vol] 2.5 10*3/uL Normal 1.00-4.8 [facility] Comment on above: Performed By: #### C BC, BMP #### [address] Lymphocytes/100 WBC (Bld) 24.0 % Normal . [facility] Comment on above: Performed By: #### C BC, BMP #### [address] MCH (RBC) [Entitic mass] 30.8 pg Normal 24.7-34.3 [facility] Comment on above: Performed By: #### C BC, BMP #### [address] MCV (RBC) [Entitic vol] 94.2 fL Normal 80-100 [facility] Comment on above: Performed By: #### C BC, BMP #### [facility] [address] Mean Corpuscular HGB Conc 32.7 g/dL Normal 32.0-35.0 [facility] Comment on above: Performed By: #### C BC, BMP #### [address] Monocytes (Bld) [#/Vol] 0.8 10*3/uL Normal 0.0-0.8 [facility] Comment on above: Performed By: #### C BC, BMP #### [address] Monocytes/100 WBC (Bld) 7.4 % Normal . [facility] Comment on above: Performed By: #### C BC, BMP #### [address] Neutrophils (Bld) [#/Vol] 6.7 10*3/uL Normal 1.8-7.7 [facility] Comment on above: Performed By: #### C BC, BMP #### [address] Neutrophils/100 WBC (Bld) 64.2 % Normal . [facility] Comment on above: Performed By: #### C BC, BMP #### [address] Nucleated RBC/100 WBC (Bld) [Ratio] 0.0 % Normal 0-0.5 [facility] Comment on above: Performed By: #### C BC, BMP #### [address] Platelet mean volume (Bld) [Entitic vol] 11.3 fL High 6.3-10.7 [facility] Comment on above: Performed By: #### C BC, BMP #### [facility] [address] Platelets (Bld) [#/Vol] 221 10*3/uL Normal 150-450 [facility] Comment on above: Performed By: #### C BC, BMP #### [facility] [address] RBC (Bld) [#/Vol] 3.79 10*6/uL Normal 3.60-5.00 [facility] Comment on above: Performed By: #### C ANAHI, BMP #### [facility] [address] WBC (Bld) [#/Vol] 10.5 10*3/uL Normal 4.5-11.0 [facility] Comment on above: Performed By: #### C ANAHI, BMP #### [facility] [address] Creatinine and Glomerular fi ltration rate.predicted panel (S/P/Bld)Ordered By: Sirena Navarro on 12-11-2021 Creatinine [Mass/Vol] 0.72 mg/dL 0.44-1.03 [facility] ECG 12 lead ECGon 12-11-2021 ECG 12 lead ECG [facility] [place] [address] [place] [address] Electrocardiograph Report Signed Patient: Pastor Heller MR#: [id number] 62 : 1990 Acct:[id number] Age/Sex: 31 / F ADM Date: 12/11/21 Loc: Room: [address] [place] [address] Type: DIS INOo Attending Dr: Padmini Moreno DO Ordering Provider: Sirena Navarro APRN Date of Service: 12/11/2105/03/140 ECG/ECG 12 lead ECG: repeat Copies to: Test Reason : Blood Pressure : / mmHG Vent. Rate : 090 BPM Atrial Rate : 090 BPM P-R Int : 156 ms QRS Dur : 084 ms QT Int : 358 ms P-R-T Axes : 075 070 072 degrees QTc Int : 437 ms Normal sinus rhythm Normal ECG No previous ECGs available Confirmed by DONATO ZAMBRANO DO ([id number]) on 12/11/2021 5:20:51 PM Referred By: Electronically Signed By:DONATO ZAMBRANO DO Transcribed By: MUS Signed By Donato Zambrano DO 12/11 1720 Normal [facility] EEG awake asleepon 2 EEG awake asleep [facility] [place] [address] [place] [address] Electroencephalogram Report Signed Patient: Pastor Heller MR#: [id number] 62 : 1990 Acct:[id number] Age/Sex: 31 / F ADM Date: 12/11/21 Loc: Room: [address] [place] [address] Type: ADM INOo Attending Dr: Padmini Moreno DO Copies to: Gavin Lacey DO Ordering Provider: Gavin Lacey DO Date of Service: 12/11/21 EEG/EEG awake asleep: syncope vs seizure, amnesia CLINICAL HISTORY: A 31-year-old woman with recurrent syncopal episodes, typically without warning. They come with a concurrent headache and have confusion that lasts afterwards. From a headache standpoint, she does happen to be on oxcarbazepine. She was started on gabapentin today as well. No other medications that should affect this study. TECHNICAL INFORMATION: This routine EEG was performed using the standard international 10-20 system of lead placement. All data was obtained digitally and available for reformatting and remontaging. Simultaneous electrocardiogram monitoring was performed during the recording. DESCRIPTION OF EEG RECORDING: Posterior dominant rhythm was apparent, was of average amplitude, was 11 Hz, and appropriately attenuated with eye-opening. Electrical activity is generally of symmetric amplitude between hemispheres and from anterior to posterior. Photic stimulation was used as an activating procedure and resulted in no abnormal findings. There were a few vertex waves indicating stage I sleep. No epileptiform activity was seen throughout the entirety of the recording. No significant or interpretation-limiting artifact was seen. IMPRESSION: Normal routine EEG. No seizures or epileptiform activity seen. No concerning findings that would be suggestive of an increased risk of seizure. Transcribed By: NTS 12/12/21 1231 Dictated By: Gavin Lacey DO 12/11/21 2120 Signed By: 12/12/21 1321 Normal [facility] Eosinophils Auto (Bld) [#/Vo l]Ordered By: Sirena Navarro on 12-11-2021 Eosinophils (Bld) [#/Vol] 0.4 10*3/uL 0.0-0.45 [facility] Eosinophils/100 WBC Auto (Bl d)Ordered By: Sirena Navarro on 12-11-2021 Eosinophils/100 WBC (Bld) 4.0 % . [facility] Erythrocyte distribution wid th Auto (RBC) [Ratio]Ordered By: Sirena Navarro on 12-11-2021 Erythrocyte distribution width (RBC) [Ratio] 13.0 % 11.9-15.3 [facility] Estimated glomerular filtrat ion rate (GFR) non- AmericanOrdered By: Sirena Navarro on 12-11-2021 GFR/1.73 sq M.predicted among non-blacks MDRD (S/P/Bld) [Vol rate/Area] > 60 mL/Min [facility] Hematocrit Auto (Bld) [Volum e fraction]Ordered By: Sirena Navarro on 12-11-2021 Hematocrit (Bld) [Volume fraction] 35.7 % 34.0-46.4 [facility] Laboratory - Hematology and Cell countsOrdered By: Sirena Navarro on 12-11-2021 Nucleated RBC/100 WBC (Bld) [Ratio] 0.0 % 0-0.5 [facility] Lymphocytes Auto (Bld) [#/Vo l]Ordered By: Sirena Navarro on 12-11-2021 Lymphocytes (Bld) [#/Vol] 2.5 10*3/uL 1.00-4.8 [facility] Lymphocytes/100 WBC Auto (Bl d)Ordered By: Sirena Navarro on 12-11-2021 Lymphocytes/100 WBC (Bld) 24.0 % . [facility] MCH Auto (RBC) [Entitic mass ]Ordered By: Sirena Navarro on 12-11-2021 MCH (RBC) [Entitic mass] 30.8 pg 24.7-34.3 [facility] MCHC Auto (RBC) [Mass/Vol]Or dered By: Sirena Navarro on 12-11-2021 MCHC (RBC) [Mass/Vol] 32.7 g/dL 32.0-35.0 [facility] MCV Auto (RBC) [Entitic vol] Ordered By: Sirena Navarro on 12-11-2021 MCV (RBC) [Entitic vol] 94.2 fL 80-100 [facility] Monocytes Auto (Bld) [#/Vol] Ordered By: Sirena Navarro on 12-11-2021 Monocytes (Bld) [#/Vol] 0.8 10*3/uL 0.0-0.8 [facility] Monocytes/100 WBC Auto (Bld) Ordered By: Sirena Navarro on 12-11-2021 Monocytes/100 WBC (Bld) 7.4 % . [facility] Neutrophils Auto (Bld) [#/Vo l]Ordered By: Sirena Navarro on 12-11-2021 Neutrophils (Bld) [#/Vol] 6.7 10*3/uL 1.8-7.7 [facility] Neutrophils/100 WBC Auto (Bl d)Ordered By: Sirena Navarro on 12-11-2021 Neutrophils/100 WBC (Bld) 64.2 % . [facility] No Panel InformationOrdered By: Sirena Navarro on 12-11-2021 Estimated GFR () > 60 mL/Min [facility] Comment on above: GFR estimated refere nce range: According to KDOQI guidelines, <60 ml/min/1.73m2 is sufficient to diagnose a patient with chronic kidney disease. Pharmacy Creatinine Clearance (Chem 91.11 [facility] Platelet mean volume Auto (B ld) [Entitic vol]Ordered By: Sirena Navarro on 12-11-2021 Platelet mean volume (Bld) [Entitic vol] 11.3 fL 6.3-10.7 [facility] Platelets Auto (Bld) [#/Vol] Ordered By: Sirena Navarro on 12-11-2021 Platelets (Bld) [#/Vol] 221 10*3/uL 150-450 [facility] RBC Auto (Bld) [#/Vol]Ordere d By: Sirena Navarro on 12-11-2021 RBC (Bld) [#/Vol] 3.79 10*6/uL 3.60-5.00 [facility] Serum or plasma anion gap de terminationOrdered By: Sirena Navarro on 12-11-2021 Anion gap [Moles/Vol] 10.8 mmol/L 6.0-15.0 [facility] Serum or plasma calcium walter urement (mass/volume)Ordered By: Sirena Navarro on 12-11-2021 Calcium [Mass/Vol] 8.5 mg/dL 8.2-10.2 [facility] Serum or plasma chloride killian surement (moles/volume)Ordered By: Sirena Navarro on 12-11-2021 Chloride [Moles/Vol] 108 mmol/L 95-114 [facility] Serum or plasma glucose walter urement (mass/volume)Ordered By: Sirena Navarro on 12-11-2021 Glucose [Mass/Vol] 93 mg/dL 70-100 [facility] Comment on above: ADA recommended refe rence range Random Glucose Reference Range is dependent on time and content of last meal. Glucose of more than 200 mg/dL in a nonstressed, ambulatory subject supports the diagnosis of Diabetes Mellitus. ADA recommended refe rence rangeRandom Glucose Reference Range is dependent on time and content of last meal. Glucose of more than 200 mg/dL in a nonstressed, ambulatory subject supports the diagnosis of Diabetes Mellitus. Serum or plasma potassium me asurement (moles/volume)Ordered By: Sirena Navarro on 12-11-2021 Potassium [Moles/Vol] 4.0 mmol/L 3.5-5.1 [facility] Serum or plasma sodium measu rement (moles/volume)Ordered By: Sirena Navarro on 12-11-2021 Sodium [Moles/Vol] 137 mmol/L 136-146 [facility] Serum or plasma total carbon dioxide measurement (moles/volume)Ordered By: Sirena Navarro on 12-11-2021 CO2 [Moles/Vol] 22.2 mmol/L 22.0-30.0 [facility] Serum or plasma urea nitroge n measurement (mass/volume)Ordered By: Sirena Navarro on 12-11-2021 Urea nitrogen [Mass/Vol] 13 mg/dL 9 [facility] BLEEDING TIMEon 11-14-2021 BLEEDING TIME 10.0 min Critically high 1.0-8.0 [facility] Comment on above: Performed By: #### B LTM #### [facility] [address] [place] [address] Dr. Linette Hoover PROTIMEon 11-14-2021 INR Coag (PPP) [Relative time] 0.95 {INR} Normal [facility] Comment on above: Performed By: #### P T, PTT #### [facility] [address] [place] [address] Dr. Linette Hoover INR GUIDELINES SEE BELOW Normal [facility] Comment on above: Result Comment: GABE RED INR: 2.0 - 3.0 CONDITIONS NOT LISTED BELOW 2.5 - 3.5 FOR PROSTHETIC HEART VALVE REPLACEMENT 2.5 - 3.5 RECURRENT THROMBOSIS Performed By: #### P T, PTT #### [facility] [address] [place] [address] Dr. Linette Hoover PT Coag (PPP) [Time] 10.3 s Normal 9.0-11.6 [facility] Comment on above: Performed By: #### P T, PTT #### [facility] [address] [place] [address] Dr. Linette Hoover PTTon 11-14-2021 aPTT Coag (Bld) [Time] 30.3 s Normal 22.3-36.2 [facility] Comment on above: Performed By: #### P T, PTT #### [facility] [address] [place] [address] Dr. Linette Hoover MRI CSPINE WO W CONon 2021 MRI CSPINE WO W CON EXAMINATION: MRI CSP INE WO W CON HISTORY: Syringomyelia and syringobulbia COMPARISON: No relevant comparison available. TECHNIQUE: A variety of imaging planes and parameters were utilized for visualization of suspected pathology prior to and after ml intravenous Dotarem injection. FINDINGS: CRANIOCERVICAL AREA: Normal foramen magnum with no Chiari malformation. PARASPINAL AREA: Normal with no visible mass. BONES: No fracture, pars defect, or osseous lesion. CORD: Normal caliber, contour, and signal intensity. CERVICAL DISC LEVELS: C2-C3: No significant disc/facet abnormality, spinal stenosis, or foraminal stenosis. C3-C4: No significant disc/facet abnormality, spinal stenosis, or foraminal stenosis. C4-C5: No significant disc/facet abnormality, spinal stenosis, or foraminal stenosis. C5-C6: No significant disc/facet abnormality, spinal stenosis, or foraminal stenosis. C6-C7: Moderate posterior broad-based disc bulging causing mild central canal narrowing. No significant foramen narrowing. No disc height reduction. C7-T1:. No significant disc/facet abnormality, spinal stenosis, or foraminal stenosis. IMPRESSION: 1. No evidence of syringomyelia or syringobulbia. 2. C6-C7 moderate degenerative disc disease with only mild central canal narrowing and no significant foraminal narrowing. Electronically authenticated by: FLACO LOCKETT Date: 2021-09-12 18:39 Normal [facility] MRI TSPINE WO W CONon 2021 MRI TSPINE WO W CON MRI THORACIC SPINE W ITH AND WITHOUT CONTRAST, 09/12/2021. HISTORY: Spinal cord syrinx. Back pain. COMPARISON: None. TECHNIQUE: Sagittal T1, T2, STIR, axial T1 and T2, postcontrast sagittal and axial T1 images were obtained. FINDINGS: Alignment normal. Vertebral body heights normal. No acute compression fracture. Signal in the bone marrow spaces normal. No significant degenerative changes. No disc bulge or focal disc protrusion. No significant spinal stenosis. No foraminal narrowing. No abnormal signal or pathologic enhancement in the thoracic spinal cord. No syrinx. No paraspinal masses. IMPRESSION: Normal MRI of the thoracic spine. Electronically authenticated by: JAMES HAGEN Date: 2021-09-12 16:30 Normal [facility] MRI LSPINE WO W CONon 2021 MRI LSPINE WO W CON EXAMINATION: MRI LSP INE WO W CON HISTORY: Syringomyelia and syringobulbia ; numbness and tingling in limbs for more than 6 months COMPARISON: No relevant comparison available. TECHNIQUE: A variety of imaging planes and parameters were utilized for visualization of suspected pathology. FINDINGS: For the purposes of numbering, sagittal T2 image # 8 extends from the T11 vertebral body superiorly to the S2-3 level inferiorly. PARASPINAL AREA: Normal with no visible mass. BONES: No fracture, pars defect, or osseous lesion. CORD/CAUDA EQUINA: Normal caliber, contour, and signal intensity. DISC LEVELS: 12-L1: No significant disc/facet abnormality, spinal stenosis, or foraminal stenosis. L1-L2: No significant disc/facet abnormality, spinal stenosis, or foraminal stenosis. L2-L3: No significant disc/facet abnormality, spinal stenosis, or foraminal stenosis. L3-L4: No significant disc/facet abnormality, spinal stenosis, or foraminal stenosis. L4-L5: No significant disc/facet abnormality, spinal stenosis, or foraminal stenosis. L5-S1: No significant disc/facet abnormality, spinal stenosis, or foraminal stenosis. IMPRESSION: 1. Normal examination. Electronically authenticated by: FLACO LOCKETT Date: 2021-09-10 11:32 Normal [facility] XR CSPINE 2_3 VIEWSon 2021 XR CSPINE 2_3 VIEWS EXAMINATION: XR CSPI NE 2_3 VIEWS HISTORY: Syringomyelia and syringobulbia COMPARISON: No relevant comparison available. FINDINGS: Flexion and extension lateral only projections demonstrate good movement of the spine. Minimal 2 mm anterolisthesis C2 on C3, C3 on C4 and C4 on C5 with flexion. No significant degenerative changes IMPRESSION: Minimal multilevel spondylolisthesis with flexion Electronically authenticated by: LOAN HARRIS Date: 2021-09-10 10:11 Normal [facility] MRI BRAIN WO W CONon 04-27-2 022 MRI BRAIN WO W CON EXAMINATION: MRI BRA IN WO W CON HISTORY: Migraine without aura, not refractory ; headaches with periodic loss of words, some visual disturbance COMPARISON: No relevant comparison available. TECHNIQUE: A variety of imaging planes and parameters were utilized for visualization of suspected pathology. Images were performed without and with Dotarem contrast. FINDINGS: CEREBRUM: No edema, hemorrhage, mass, acute infarction, or inappropriate atrophy. CEREBELLUM: Cerebellar tonsils extend below the foramen magnum, 9 mm on the right, 4 mm on left. No edema, hemorrhage, mass, acute infarction, or inappropriate atrophy. BRAINSTEM: No edema, hemorrhage, mass, acute infarction, or inappropriate atrophy. CSF SPACES: Ventricles, cisterns, and sulci are appropriate for age. No hydrocephalus, subarachnoid hemorrhage, or mass. SKULL: No mass or other significant visible lesion. SINUSES: Limited views demonstrate no significant mucosal thickening or fluid. ORBITS: Limited views are unremarkable. OTHER: No abnormal meningeal or parenchymal enhancement. IMPRESSION: 1. Bilateral cerebellar tonsillar ectopia, significant on right; likely contributing to patient's symptoms. Electronically authenticated by: FLACO LOCKETT Date: 2021-08-06 08:48 Normal [facility] RAD - CT Reporton 12-11-2020 RAD - CT Report [id number]:[address] [facility] Provider Letter FTon 07-01 Provider Letter [facility] (Inserted Image. Un able to display) Siobhan Evangelista, [address] [place] [address] [place] [address] Re: PASTOR HELLER Date of : 1990 Thank you for your referral of Pastor Heller who was seen on consultation for Right Upper Quadrant Abdominal pain and constipation. A colonoscopy is planned. I have enclosed my consultation notes for your review. I will be happy to follow Pastor should her symptoms persist. Sincerely, Les León MD General Surgery [facility] Outside Colonoscopyon 2020 Outside Colonoscopy [id number]:127 [facility] Consent for Procedure/Surger yon 06-14-2020 Consent for Procedure/Surgery [id number]:127 [facility] Pre-Certification Formon Pre-Certification Form [id number]#[id number]:127 printed and faxed to [facility] [place] Ambulatory Clinical Summaryo n 06-12-2020 Ambulatory Clinical Summary {[id number]}CD:[id number] [facility] Physician Referralon 021 Physician Referral [id number]:[address] [facility] Physical Rehabilitation Offi ce/Clinic Noon 06-07-2018 Physical Rehabilitation Office/Clinic No EMG/NCS of the RUE completed today. Please see report. Electronically signed by Ceci Grady MD 06/07/18 14:12 EST Normal [facility] Vital Signs Date Time Vital Sign Value Performing Clinician Facility 02-02-2024 11:53-0400 Body height 152.4 cm Irina Courson DO Work Phone: [facility] 02-02-2024 11:53-0400 Body mass index (BMI) [Ratio] 23.83 kg/m2 Irina Courson DO Work Phone: [facility] 02-02-2024 11:53-0400 Body weight 55.34 kg Irina Courson DO Work Phone: [facility] 02-02-2024 11:53-0400 Diastolic blood pressure 80 mm[Hg] Irina Courson DO Work Phone: [facility] 02-02-2024 11:53-0400 Heart rate 78 /min Irina Courson DO Work Phone: [facility] 02-02-2024 11:53-0400 Systolic blood pressure 126 mm[Hg] Irina Courson DO Work Phone: [facility] 08-17-2023 10:17-0400 Body height 152.4 cm Irina Courson DO Work Phone: [facility] 08-17-2023 10:17-0400 Body mass index (BMI) [Ratio] 25 kg/m2 Irina Courson DO Work Phone: [facility] 08-17-2023 10:17-0400 Body weight 58.06 kg Irina Courson DO Work Phone: [facility] 06-03-2023 07:48-0500 Diastolic blood pressure 67 mm[Hg] James Noble MD Work Phone: [facility] 06-03-2023 07:48-0500 Heart rate 67 /min James Noble MD Work Phone: [facility] 06-03-2023 07:48-0500 Systolic blood pressure 115 mm[Hg] James Noble MD Work Phone: [facility] 06-03-2023 07:46-0500 Body height 149.9 cm James oNble MD Work Phone: [facility] 06-03-2023 07:46-0500 Body weight 53.71 kg James Noble MD Work Phone: [facility] 02-26-2023 08:03-0500 Diastolic blood pressure 81 mm[Hg] Eitan Lochan DIRECTOR OF MARKETING ANALYTICS.[employer] Work Phone: [facility] 02-26-2023 08:03-0500 Heart rate 78 /min Eitan Lochan DIRECTOR OF MARKETING ANALYTICS.[employer] Work Phone: [facility] 02-26-2023 08:03-0500 Respiratory rate 17 /min Eitan Lochan DIRECTOR OF MARKETING ANALYTICS.[employer] Work Phone: [facility] 02-26-2023 08:03-0500 SaO2% (BldA) [Mass fraction] 98 % Eitan Lochan DIRECTOR OF MARKETING ANALYTICS.[employer] Work Phone: [facility] 02-26-2023 08:03-0500 Systolic blood pressure 118 mm[Hg] Eitan Lochan DIRECTOR OF MARKETING ANALYTICS.[employer] Work Phone: [facility] 05-29-2022 15:53-0500 Body height 152.4 cm Ortega Natarajan APRN.[employer] Work Phone: [facility] 05-29-2022 15:53-0500 Body weight 49.9 kg Ortega Natarajan DIRECTOR OF MARKETING ANALYTICS.[employer] Work Phone: [facility] 05-29-2022 15:53-0500 Diastolic blood pressure 68 mm[Hg] Ortega Benjaminberman DIRECTOR OF MARKETING ANALYTICS.[employer] Work Phone: [facility] 05-29-2022 15:53-0500 Heart rate 90 /min Ortega Benjaminberman DIRECTOR OF MARKETING ANALYTICS.[employer] Work Phone: [facility] 05-29-2022 15:53-0500 SaO2% (BldA) [Mass fraction] 96 % Ortega Schulerman DIRECTOR OF MARKETING ANALYTICS.[employer] Work Phone: [facility] 05-29-2022 15:53-0500 Systolic blood pressure 119 mm[Hg] Ortega Natarajan DIRECTOR OF MARKETING ANALYTICS.[employer] Work Phone: [facility] 03-25-2022 10:35-0500 Body height 152.4 cm Laury Magaña MD Work Phone: [facility] 03-25-2022 10:35-0500 Body weight 50.35 kg Laury Magaña MD Work Phone: [facility] 03-25-2022 10:35-0500 Diastolic blood pressure 22 mm[Hg] Laury Magaña MD Work Phone: [facility] 03-25-2022 10:35-0500 Heart rate 77 /min Laury Magaña MD Work Phone: [facility] 03-25-2022 10:35-0500 Respiratory rate 19 /min Laury Magaña MD Work Phone: [facility] 03-25-2022 10:35-0500 SaO2% (BldA) [Mass fraction] 100 % Laury Magaña MD Work Phone: [facility] 03-25-2022 10:35-0500 Systolic blood pressure 122 mm[Hg] Laury Magaña MD Work Phone: [facility] 02-19-2022 11:59-0500 Body temperature 99.39 [degF] Winter Rojo MD Work Phone: [facility] 02-19-2022 11:59-0500 Body weight 52.48 kg Winter Rojo MD Work Phone: [facility] 02-19-2022 11:59-0500 Diastolic blood pressure 77 mm[Hg] Winter Rojo MD Work Phone: [facility] 02-19-2022 11:59-0500 Heart rate 94 /min Winter Rojo MD Work Phone: [facility] 02-19-2022 11:59-0500 Respiratory rate 18 /min Winter Rojo MD Work Phone: [facility] 02-19-2022 11:59-0500 SaO2% (BldA) [Mass fraction] 99 % Winter Rojo MD Work Phone: [facility] 02-19-2022 11:59-0500 Systolic blood pressure 129 mm[Hg] Winter Rojo MD Work Phone: [facility] 02-16-2022 09:45-0500 Body height 149.9 cm Ortega Natarajan APRN.[employer] Work Phone: [facility] 02-16-2022 09:45-0500 Body weight 51.08 kg Ortega Natarajan APRN.[employer] Work Phone: [facility] 02-16-2022 09:45-0500 Diastolic blood pressure 84 mm[Hg] Ortega Natarajan APRN.[employer] Work Phone: [facility] 02-16-2022 09:45-0500 Heart rate 86 /min Ortega Natarajan APRN.[employer] Work Phone: [facility] 02-16-2022 09:45-0500 SaO2% (BldA) [Mass fraction] 98 % Ortega Natarajan APRN.[employer] Work Phone: [facility] 02-16-2022 09:45-0500 Systolic blood pressure 134 mm[Hg] Ortega Natarajan APRN.[employer] Work Phone: [facility] 01-22-2022 02:07-0400 Diastolic blood pressure 75 mm[Hg] MD Siobhan Evangelista Work Phone: [facility] 01-22-2022 02:07-0400 Systolic blood pressure 112 mm[Hg] MD Siobhan Evangelista Work Phone: [facility] 01-22-2022 01:56-0400 Heart rate 84 /min MD Siobhan Evangelista Work Phone: [facility] 01-22-2022 01:56-0400 Respiratory rate 18 /min MD Siobhan Evangelista Work Phone: [facility] 01-22-2022 01:56-0400 SaO2% (BldA) [Mass fraction] 95 % MD Siobhan Evangelista Work Phone: [facility] 01-21-2022 17:10-0400 Body height 162.56 cm MD Siobhan Evangelista Work Phone: [facility] 01-21-2022 17:10-0400 Body temperature 98.3 [degF] MD Siobhan Evangelista Work Phone: [facility] 01-21-2022 17:10-0400 Body weight 71.4 kg MD Siobhan Evangelista Work Phone: [facility] 01-09-2022 08:51-0400 Body height 147.3 cm Sabiha Pavon MD Work Phone: [facility] 01-09-2022 08:51-0400 Body weight 52.62 kg Sabiha Pavon MD Work Phone: [facility] 01-09-2022 08:51-0400 Diastolic blood pressure 76 mm[Hg] Sabiha Pavon MD Work Phone: [facility] 01-09-2022 08:51-0400 Heart rate 78 /min Sabiha Pavon MD Work Phone: [facility] 01-09-2022 08:51-0400 Systolic blood pressure 117 mm[Hg] Sabiha Pavon MD Work Phone: [facility] 12-30-2021 08:26-0400 Body temperature 98.29 [degF] Winter Rojo MD Work Phone: [facility] 12-30-2021 08:26-0400 Body weight 54.11 kg Winter Rojo MD Work Phone: [facility] 12-30-2021 08:26-0400 Diastolic blood pressure 79 mm[Hg] Winter Rojo MD Work Phone: [facility] 12-30-2021 08:26-0400 Heart rate 94 /min Winter Rojo MD Work Phone: [facility] 12-30-2021 08:26-0400 Respiratory rate 18 /min Winter Rojo MD Work Phone: [facility] 12-30-2021 08:26-0400 SaO2% (BldA) [Mass fraction] 98 % Winter Rojo MD Work Phone: [facility] 12-30-2021 08:26-0400 Systolic blood pressure 133 mm[Hg] Winter Rojo MD Work Phone: [facility] 12-12-2021 16:13-0400 Body temperature 98.5 [degF] MD Siobhan Evangelista Work Phone: [facility] 12-12-2021 16:13-0400 Diastolic blood pressure 83 mm[Hg] MD Siobhan Evangelista Work Phone: [facility] 12-12-2021 16:13-0400 Heart rate 77 /min MD Siobhan Evangelista Work Phone: [facility] 12-12-2021 16:13-0400 Respiratory rate 20 /min MD Siobhan Evangelista Work Phone: [facility] 12-12-2021 16:13-0400 SaO2% (BldA) [Mass fraction] 96 % MD Siobhan Evangelista Work Phone: [facility] 12-12-2021 16:13-0400 Systolic blood pressure 126 mm[Hg] MD Siobhan Evangelista Work Phone: [facility] 12-11-2021 02:17-0400 Body height 149.86 cm MD Siobhan Evangelista Work Phone: [facility] 12-11-2021 02:17-0400 Body weight 59.2 kg MD Siobhan Evangelista Work Phone: [facility] 09-03-2021 12:57-0400 Body height 147.3 cm Samy Tarcy PA-C Work Phone: [facility] 09-03-2021 12:57-0400 Body weight 52.16 kg Samy Tarcy PA-C Work Phone: [facility] 09-03-2021 12:57-0400 Diastolic blood pressure 81 mm[Hg] Samy Tarcy PA-C Work Phone: [facility] 09-03-2021 12:57-0400 Heart rate 82 /min Samy Tarcy PA-C Work Phone: [facility] 09-03-2021 12:57-0400 Respiratory rate 20 /min Samy Tarcy PA-C Work Phone: [facility] 09-03-2021 12:57-0400 SaO2% (BldA) [Mass fraction] 100 % Samy Tarcy PA-C Work Phone: [facility] 09-03-2021 12:57-0400 Systolic blood pressure 125 mm[Hg] Samy Tarcy PA-C Work Phone: [facility] Encounters Encounter Date Encounter Type Care Provider Facility Start: 02-22-2024 ambulatory [facility] Start: 02-22-2024 ambulatory [facility] Start: 02-18-2024 End: 02-18-2024 Telephone encounter Irina Finley DO Work Phone: Cardiology Comment on above: Medical Clearance Re quest Chronic migraine w/o aura w/o status migrainosus, not intractable (Primary Dx) Start: 02-16-2024 End: 02-18-2024 Clinical Support Mario Figueroa DIRECTOR OF MARKETING ANALYTICS-[employer] Work Phone: [facility] Comment on above: Need for prophylacti c vaccination and inoculation against influenza (Primary Dx) Headache follow up Start: 02-14-2024 End: 02-14-2024 ambulatory [facility] Start: 02-11-2024 Encounter for genera l adult medical examination without abnormal [facility] Start: 02-11-2024 End: 02-11-2024 ambulatory [facility] Start: 02-07-2024 End: 02-07-2024 ambulatory Brock Wang PA-C Work Phone: Neurology Comment on above: Chronic migraine w/o aura w/o status migrainosus, not intractable (Primary Dx); Arnold-Chiari malformation (HCC); Exertional headache Start: 02-07-2024 End: 02-07-2024 Telemedicine consultation with patient Brock CAIN-C Work Phone: Neurology Start: 02-02-2024 End: 02-02-2024 Patient encounter procedure Irina Finley DO Work Phone: Cardiology Comment on above: Tachycardia (Primary Dx); Palpitations; Post-COVID syndrome; SOB (shortness of breath); Other post infection and related fatigue syndromes; Brain fog; Atypical chest pain; Syncope, unspecified syncope type; Other migraine without status migrainosus, not intractable; Arnold-Chiari malformation (HCC) Start: 02-02-2024 End: 02-02-2024 ambulatory IRINA FINLEY Facility:[facility] Start: 10-27-2023 ambulatory Brock Wang PA -C Work Phone: Neurology Comment on above: Tachycardia Chiari Start: 10-10-2023 Refill Jhoana Daily MD Work Phone: Neurology Comment on above: Refill Request Start: 08-27-2023 End: 08-27-2023 ambulatory IRINA FINLEY Facility:[facility] Start: 08-27-2023 End: 08-27-2023 Patient encounter procedure Pulm Fct Lab 3- [facility] Pulmonary Medicine Comment on above: SOB (shortness of br eath) (Primary Dx) Start: 08-24-2023 Telephone encounter Cristy Dawkins RRT Pulmonary Medicine Comment on above: Appointment Start: 08-17-2023 End: 08-17-2023 Patient encounter procedure Irina Finley DO Work Phone: Cardiology Comment on above: Tachycardia (Primary Dx); Palpitations; Post-COVID syndrome; SOB (shortness of breath); Other post infection and related fatigue syndromes; Brain fog; Atypical chest pain Start: 08-17-2023 End: 08-17-2023 ambulatory RITA UGALDEAT Facility:[facility] Start: 07-26-2023 End: 07-26-2023 ambulatory FLEX MORENO Not Available Start: 07-01-2023 Refill Jhoana Daily MD Work Phone: Neurology Comment on above: Refill Request Start: 06-25-2023 Refill Jhoana Daily MD Work Phone: Neurology Comment on above: Refill Request Start: 06-07-2023 End: 06-07-2023 ambulatory SELF Facility:[facility] Start: 06-03-2023 End: 06-03-2023 Office outpatient new 20 minutes James Noble MD Work Phone: Preventive Cardiology Comment on above: POTS (postural ortho static tachycardia syndrome) (Primary Dx) Start: 06-03-2023 End: 06-03-2023 ambulatory JAMES NOBLE Facility:[facility] Start: 05-26-2023 End: 06-11-2023 ambulatory EITAN MCCAULEY [facility] Start: 05-03-2023 End: 05-03-2023 ambulatory JHOANA DAILY Facility:[facility] Start: 04-23-2023 End: 04-24-2023 Emergency department patient visit AGUSTO CLARK [facility] Start: 04-21-2023 End: 05-13-2023 ambulatory EITAN MCCAULEY [facility] Start: 04-20-2023 End: 04-20-2023 ambulatory EITAN MCCAULEY Facility:[facility] Start: 03-29-2023 End: 03-29-2023 ambulatory EITAN MCCAULEY Facility:[facility] Start: 02-26-2023 End: 02-26-2023 ambulatory EITAN MCCAULEY Pulmonary [facility] Comment on above: Spirometry Start: 02-26-2023 End: 02-26-2023 [facility] on above: SOB (shortness of br eath) (Primary Dx); Post-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 (PASC); Cough, unspecified type; Chest pressure; Palpitations; POTS (postural orthostatic tachycardia syndrome); Brain fog; Difficulty concentrating; Memory changes; Headaches; Neck pain; Chronic fatigue; Activity intolerance; Dizziness; Neck stiffness; Irritable bowel syndrome with constipation; Cognitive changes Start: 02-10-2023 Orders Only Irina sandoval DO Work Phone: Cardiology Comment on above: Chronic systolic con gestive heart failure (HCC) (Primary Dx) Intake (Covid Recove r clinic pre-visit phone call. ) Start: 12-23-2022 Orders Only Rita Dougherty MD Work Phone: Cardiology Comment on above: Cardiomyopathy, kevyn schemic (HCC) (Primary Dx) Start: 11-09-2022 Telephone encounter No Pcp DIRECTOR OF MARKETING ANALYTICS Ref erring Physician Comment on above: External Referrals/r esources Start: 10-26-2022 Telephone encounter Ortega farris DIRECTOR OF MARKETING ANALYTICS.[employer] Work Phone: Neurology Comment on above: Received Outside Med ical Records Start: 06-23-2022 Telephone encounter Ortega farris DIRECTOR OF MARKETING ANALYTICS.[employer] Work Phone: Neurology Comment on above: Received outside [facility] report Start: 06-03-2022 End: 06-04-[address] FLEX MORENO . Facility: Start: 05-29-2022 End: 05-29-2022 Patient encounter procedure Ortega Natarajan APRN.[employer]ICE [employer] Work Phone: Neurology Comment on above: POTS (postural ortho static tachycardia syndrome) (Primary Dx); Transient loss of consciousness; Intractable migraine with aura without status migrainosus; Positional headache; Arnold-Chiari malformation (HCC) Start: 04-07-2022 Telephone encounter Winter Rojo MD Work Phone: [facility] Comment on above: Internal Medicine Specialist - O ther Start: 03-25-2022 End: 03-25-2022 Patient encounter procedure Laury Magaña MD Work Phone: Neurology Comment on above: Convulsions, unspeci fied convulsion type (HCC) (Primary Dx); Transient loss of consciousness Start: 03-06-2022 End: 03-06-2022 Patient encounter procedure Syncope Opd Nurse Work Phone: Cardiology Comment on above: Syncope and collapse (Primary Dx) Start: 02-27-2022 ambulatory Ortega bush DIRECTOR OF MARKETING ANALYTICS.[employer] Work Phone: Neurology Comment on above: Driving TILT TABLE TEST INST RUCTIONS - READ CAREFULLY Start: 02-27-2022 E-mail encounter rossana m caregiver Rosi Garcia RN [facility] Start: 02-23-2022 Telephone encounter Ortega farris APRN.[employer] Work Phone: Neurology Comment on above: Received Outside Med ical Records ([facility]) Other (Work restrict ion questions) Start: 02-19-2022 End: 02-19-2022 Patient encounter procedure Winter Rojo MD Work Phone: [facility] Comment on above: Cervical spine insta bility (Primary Dx) Start: 02-19-2022 Telephone encounter Ortega farris DIRECTOR OF MARKETING ANALYTICS.[employer] Work Phone: Neurology Comment on above: Received Outside Med ical Records ([facility] ) Start: 02-18-2022 ambulatory Ortega bush DIRECTOR OF MARKETING ANALYTICS.[employer] Work Phone: Neurology Comment on above: Employer creating a position Start: 02-17-2022 Telephone encounter Ortega Vasquez Brandon farris DIRECTOR OF MARKETING ANALYTICS.[employer] Work Phone: Neurology Comment on above: Patient Question (Le tter request) Received Outside [facility] Records ([facility] ) Start: 02-16-2022 End: 02-16-2022 Patient encounter procedure Ortega Vasquez Delgado DIRECTOR OF MARKETING ANALYTICS.[employer] Work Phone: Neurology Comment on above: Transient loss of co nsciousness (Primary Dx); Hand weakness; Dysphagia, unspecified type; Tachycardia; Orthostatic lightheadedness; Functional movement disorder; Tremulousness Start: 01-27-2022 Telephone encounter Nancy Carrillo RN Cardiology Comment on above: Internal Medicine Specialist - O ther Start: 01-22-2022 End: 01-22-2022 ambulatory Winter Rojo MD Work Phone: [facility] Comment on above: Syncope and collapse (Primary Dx) Start: 01-22-2022 End: 01-22-2022 Telemedicine consultation with patient Winter Rojo MD Work Phone: [facility] Start: 01-21-2022 End: 01-22-2022 Emergency department patient visit Siobhan Evangelista Facility:[facility] Start: 01-21-2022 End: 01-22-2022 Emergency department patient visit MD Siobhan Evangelista Work Phone: [facility] Start: 01-21-2022 Telephone encounter Winter Rojo MD Work Phone: [facility] Comment on above: Internal Medicine Specialist - O ther Start: 01-20-2022 Telephone encounter Winter Rojo MD Work Phone: [facility] Comment on above: Internal Medicine Specialist - O ther Start: 01-09-2022 End: 01-09-2022 Patient encounter procedure Sabiha Pavon MD Work Phone: Neurology Comment on above: Syncope and collapse (Primary Dx); Nras-[id number] syndrome manifesting as chronic neurologic symptoms; Jgub-WULAB-00 syndrome manifesting as chronic headache Start: 12-30-2021 ambulatory Winter Rojo MD Work Phone: [facility] Start: 12-30-2021 End: 12-30-2021 Patient encounter procedure Winter Rojo MD Work Phone: [facility] Comment on above: Pablito cerda me (HCC) (Primary Dx) PT referral Start: 12-11-2021 End: 12-12-2021 ambulatory Stanislav Gottlieb Facility:[facility] Start: 12-11-2021 End: 12-12-2021 Evaluation and management of inpatient MD Siobhan Evangelista Work Phone: [facility] Start: 11-24-2021 Telephone encounter Winter Rojo MD Work Phone: [facility] Comment on above: Received cardiac EKG report from [employer] report via Onbase Start: 11-14-2021 End: 11-15-[address] SIOBHAN EVANGELISTA . Facility:[facility] Start: 10-20-2021 ambulatory Winter Rojo MD Work Phone: [facility] Comment on above: Worsening symptoms Start: 09-23-2021 Chart abstracting Samy Spivey PA-C Work Phone: [facility] Comment on above: Scans (1 CD rcvd, sc anned, and given to Samy from [facility].) Start: 09-22-2021 Telephone encounter Internal Medicine Specialist RN [facility] Comment on above: Patient Update Start: 09-12-2021 End: 09-13-[address] DOCTOR CELESTE Facility:[facility] Start: 09-10-2021 Chart abstracting Samy Spivey PA-C Work Phone: [facility] Comment on above: Received Outside Med ical Records ([facility] MRI results rcvd. In scanned documents.) Start: 09-10-2021 End: 09-11-[address] SIOBHAN EVANGELISTA . Facility: Start: 09-03-2021 Chart abstracting Samy Spivey PA-C Work Phone: [facility] Comment on above: Scans (1CD and repor ts from [facility] rcvd. CD scanned and and all given to Samy.) Start: 09-03-2021 End: 09-03-2021 Patient encounter procedure Samy Spivey PA-C Work Phone: [facility] Comment on above: Chiari malformation type I (HCC) (Primary Dx); Syringomyelia and syringobulbia (HCC) Start: 08-06-2021 End: 08-07-[address] SIOBHAN EVANGELISTA . 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.[employer] Work Phone: Start: 01-21-2022 MRI of cervical spin e without contrast MD Siobhan Evangelista Work Phone: Start: 01-21-2022 XR pre/post mri xray MD Siobhan Evangelista Work Phone: Start: 12-11-2021 MRI of head MD Siobhan Evangelista Work Phone: SARS Antigen (LFIA) MD Deric Evangelista Work Phone: Plan of Treatment Date Care Activity Detail Author Start: 02-10-2025 Adult BMI Screening Adult BMI Screen [facility] Start: 06-23-2024 End: 06-23-2024 Patient encounter procedure 06/23/2024 8:30 AM EDT Office Visit Neurology [address] [place] [id number] Jhoana Daily MD [address] [place] [address] follow up Neurology Comment on above: follow up Start: 04-23-2024 Tobacco Screening Tobacco Screening [facility] Start: 03-31-2024 End: 03-31-2024 Follow-up encounter 03/31/2024 3:15 PM EST [facility] [address] [id number] Brock Wang PA-C [address] [place] [address] headache follow up,MyChart request Neurology Comment on above: headache follow up,M yChart request Start: 02-07-2024 End: 02-07-2024 Follow-up encounter 02/07/2024 11:00 AM EDT [facility] [address] [id number] Brock Wang PA-C [address] [place] [address] headache follow up,MyChart request Neurology Comment on above: headache follow up,M yChart request Start: 02-02-2024 End: 02-02-2024 Patient encounter procedure 02/02/2024 11:45 AM EDT Office Visit Cardiology [address] [place] [address] Irina Finley DO [address] [place] [address] Syncope Cardiology Comment on above: Syncope Start: 02-02-2024 End: 02-02-2024 ambulatory 02/02/2024 11:00 AM EDT Results Only Cardiology [address] [place] [address] Syncope Cardiology Comment on above: Syncope Start: 12-12-2023 Covid-19 Vaccine ( season) Covid-19 Vaccine () [facility] Start: 12-12-2023 Influenza vaccination [facility] Start: 08-27-2023 End: 08-27-2023 Patient encounter procedure Pulmonary Medicine Comment on above: SOB PT CALLED SL SOB Start: 04-12-2023 Depression Assessment Depression Ass essment [facility] Start: 02-26-2023 End: 05-28-2023 25-hydroxyvitamin D3 [Mass/volume] in Serum or Plasma VITAMIN D 25 HYDROXY Lab Routine Post-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 (PASC) SOB (shortness of breath) Cough, unspecified type Chest pressure Palpitations POTS (postural orthostatic tachycardia syndrome) Brain fog Difficulty concentrating Memory changes Headaches Neck pain Chronic fatigue Activity intolerance Dizziness Neck stiffness Irritable bowel syndrome with constipation Cognitive changes Expected: 02/26/2023, Expires: 05/28/2023 [facility] Work Phone: Comment on above: Expected: 02/26/2023 , Expires: 05/28/2023 Start: 02-26-2023 End: 05-28-2023 C reactive protein [Mass/volume] in Serum or Plasma C-REACTIVE PROTEIN (CRP) Lab Routine Post-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) SOB (shortness of breath) Cough, unspecified type Chest pressure Palpitations POTS (postural orthostatic tachycardia syndrome) Brain fog Difficulty concentrating Memory changes Headaches Neck pain Chronic fatigue Activity intolerance Dizziness Neck stiffness Irritable bowel syndrome with constipation Cognitive changes Expected: 02/26/2023, Expires: 05/28/2023 [facility] Work Phone: Comment on above: Expected: 02/26/2023 , Expires: 05/28/2023 Start: 02-26-2023 End: 05-28-2023 CBC panel - Blood by Automated count CBC Lab Routine Post-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 (PASC) SOB (shortness of breath) Cough, unspecified type Chest pressure Palpitations POTS (postural orthostatic tachycardia syndrome) Brain fog Difficulty concentrating Memory changes Headaches Neck pain Chronic fatigue Activity intolerance Dizziness Neck stiffness Irritable bowel syndrome with constipation Cognitive changes Expected: 02/26/2023, Expires: 05/28/2023 [facility] Work Phone: Comment on above: Expected: 02/26/2023 , Expires: 05/28/2023 Start: 02-26-2023 End: 05-28-2023 Cobalamin (Vitamin B12) [Mass/volume] in Serum or Plasma VITAMIN B12 BLOOD Lab Routine Post-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) SOB (shortness of breath) Cough, unspecified type Chest pressure Palpitations POTS (postural orthostatic tachycardia syndrome) Brain fog Difficulty concentrating Memory changes Headaches Neck pain Chronic fatigue Activity intolerance Dizziness Neck stiffness Irritable bowel syndrome with constipation Cognitive changes Expected: 02/26/2023, Expires: 05/28/2023 [facility] Work Phone: Comment on above: Expected: 02/26/2023 , Expires: 05/28/2023 Start: 02-26-2023 End: 05-28-2023 Comprehensive metabolic 2000 panel - Serum or Plasma COMP METABOLIC PANEL Lab Routine Post-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 (PASC) SOB (shortness of breath) Cough, unspecified type Chest pressure Palpitations POTS (postural orthostatic tachycardia syndrome) Brain fog Difficulty concentrating Memory changes Headaches Neck pain Chronic fatigue Activity intolerance Dizziness Neck stiffness Irritable bowel syndrome with constipation Cognitive changes Expected: 02/26/2023, Expires: 05/28/2023 [facility] Work Phone: Comment on above: Expected: 02/26/2023 , Expires: 05/28/2023 Start: 02-26-2023 End: 05-28-2023 Ferritin [Mass/volume] in Serum or Plasma FERRITIN BLD Lab Routine Post-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 (PASC) SOB (shortness of breath) Cough, unspecified type Chest pressure Palpitations POTS (postural orthostatic tachycardia syndrome) Brain fog Difficulty concentrating Memory changes Headaches Neck pain Chronic fatigue Activity intolerance Dizziness Neck stiffness Irritable bowel syndrome with constipation Cognitive changes Expected: 02/26/2023, Expires: 05/28/2023 [facility] Work Phone: Comment on above: Expected: 02/26/2023 , Expires: 05/28/2023 Start: 02-26-2023 End: 05-28-2023 Folate [Mass/volume] in Serum or Plasma FOLATE SERUM Lab Routine Post-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 (PASC) SOB (shortness of breath) Cough, unspecified type Chest pressure Palpitations POTS (postural orthostatic tachycardia syndrome) Brain fog Difficulty concentrating Memory changes Headaches Neck pain Chronic fatigue Activity intolerance Dizziness Neck stiffness Irritable bowel syndrome with constipation Cognitive changes Expected: 02/26/2023, Expires: 05/28/2023 [facility] Work Phone: Comment on above: Expected: 02/26/2023 , Expires: 05/28/2023 Start: 02-26-2023 End: 05-28-2023 OMEGACHECK OMEGACHECK Lab Routine Post-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 (PASC) SOB (shortness of breath) Cough, unspecified type Chest pressure Palpitations POTS (postural orthostatic tachycardia syndrome) Brain fog Difficulty concentrating Memory changes Headaches Neck pain Chronic fatigue Activity intolerance Dizziness Neck stiffness Irritable bowel syndrome with constipation Cognitive changes Expected: 02/26/2023, Expires: 05/28/2023 [facility] Work Phone: Comment on above: Expected: 02/26/2023 , Expires: 05/28/2023 Start: 02-26-2023 End: 05-28-2023 TRACE ELEMENTS/TPN TRACE ELEMENTS/TPN Lab Routine Post-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 (PASC) SOB (shortness of breath) Cough, unspecified type Chest pressure Palpitations POTS (postural orthostatic tachycardia syndrome) Brain fog Difficulty concentrating Memory changes Headaches Neck pain Chronic fatigue Activity intolerance Dizziness Neck stiffness Irritable bowel syndrome with constipation Cognitive changes Expected: 02/26/2023, Expires: 05/28/2023 [facility] Work Phone: Comment on above: Expected: 02/26/2023 , Expires: 05/28/2023 Start: 12-11-2022 Covid-19 Vaccine () Covid-19 Vaccine () [facility] Start: 12-11-2022 Influenza vaccination C [facility] Start: 05-29-2022 End: 07-29-2022 Comprehensive metabolic 2000 panel - Serum or Plasma [facility] Work Phone: Comment on above: Expected: 05/29/2022 , Expires: 07/29/2022 Start: 04-12-2022 DEPRESSION ASSESSMENT DEPRESSION ASS ESSMENT [facility] Start: 03-25-2022 End: 03-25-2023 SARS-CoV-2 (COVID-19) RNA [Presence] in Respiratory specimen by ANABELL with probe detection PRE-PROCEDURE & PRE-OPERATIVE COVID Microbiology Routine Transient loss of consciousness Convulsions, unspecified convulsion type (HCC) Expected: 03/25/2022, Expires: 03/25/2023 [facility] Work Phone: Comment on above: Expected: 03/25/2022 , Expires: 03/25/2023 Start: 02-16-2022 End: 04-18-2022 Alpha tocopherol [Mass/volume] in Serum or Plasma VITAMIN E/TOCOPHEROL Lab Routine Tremulousness Expected: 02/16/2022, Expires: 04/18/2022 [facility] Work Phone: Comment on above: Expected: 02/16/2022 , Expires: 04/18/2022 Start: 02-16-2022 End: 04-18-2022 Ceruloplasmin [Mass/volume] in Serum or Plasma CERULOPLASMIN BLD Lab Routine Tremulousness Expected: 02/16/2022, Expires: 04/18/2022 [facility] Work Phone: Comment on above: Expected: 02/16/2022 , Expires: 04/18/2022 Start: 12-12-2021 End: 12-12-2021 [facility] Start: 12-11-2021 Influenza vaccination C [facility] Start: 12-11-2021 Referral to neurologist [facility] Start: 12-11-2021 Referral to press maintainer [facility] Start: 12-11-2021 Hospital admission [facility] Start: 05-09-2021 COVID-19 VACCINE (2 - Booster for Jason series) COVID-19 VACCINE (2 - Booster for Jason series) [facility] Start: 04-12-2021 DEPRESSION ASSESSMENT DEPRESSION ASS ESSMENT [facility] Start: 2020 HPV TESTING HPV TESTING [facility] Start: 2020 Screening for malign ant neoplasm of cervix HPV Testing [facility] Start: 02-07-2018 DTaP,Tdap and Td Vac cines (8 - Td or Tdap) DTaP,Tdap and Td Vaccines (8 - Td or Tdap) [facility] Start: 11-26-2011 PAP TESTING PAP TESTING [facility] Start: 11-26-2011 Screening for malign ant neoplasm of cervix [facility] Start: 2009 Hepatitis B Vaccine (1 of 3 - 19+ 3-dose series) Hepatitis B Vaccine (1 of 3 - 19+ 3-dose series) [facility] Start: 2009 Urine microalbumin profile [facility] Start: 2008 HEPATITIS C SCREENING HEPATITIS C [facility] Start: 2008 Hepatitis C screening Hepatitis C [facility] Start: 2008 HIV SCREENING HIV SCREENING [facility] Start: 2008 HIV screening HIV Screening [facility] Start: 2002 Adult depression screening assessment DEPRESSION SCREENING [facility] Start: 11-26-1995 COVID-19 VACCINE (#1) COVID-19 VACCI NE (#1) [facility] Start: 1990 HEPATITIS B (1 of 3 - 3-dose series) HEPATITIS B (1 of 3 - 3-dose series) [facility] Start: 1990 Hepatitis B Vaccine (1 of 3 - 3-dose series) Hepatitis B Vaccine (1 of 3 - 3-dose series) [facility] End: 09-15-2024 CARDIOPULMONARY EXERCISE TEST CARDIOPULMONARY EXERCISE TEST PFT Routine SOB (shortness of breath) 1 Occurrences starting 08/17/2023 until 09/15/2024 [facility] Work Phone: Comment on above: 1 Occurrences starti ng 08/17/2023 until 09/15/2024 Cardiovascular funct ion eval w/tilt table w/mntr TILT TABLE EVALUATION Cardiology Routine Syncope and collapse Ordered: 01/09/2022 [facility] Work Phone: Comment on above: Ordered: 01/09/2022 Creatinine [Mass/vol ume] in Urine [facility] Work Phone: End: 12-10-2023 Ct cervical spine w/o contrast material CT CERVICAL SPINE WO IVCON Radiology Routine Cervical spine instability 1 Occurrences starting 02/19/2022 until 03/21/2023 [facility] Work Phone: Comment on above: 1 Occurrences starti ng 02/19/2022 until 03/21/2023 End: 12-24-2023 ECG COMPLETE ECG COMPLETE ECG Routine Cardiomyopathy, nonischemic (HCC) 1 Occurrences starting 12/23/2022 until 12/24/2023 [facility] Work Phone: Comment on above: 1 Occurrences starti ng 12/23/2022 until 12/24/2023 End: 02-11-2024 ECG COMPLETE ECG COMPLETE ECG Routine Chronic systolic congestive heart failure (HCC) 1 Occurrences starting 02/10/2023 until 02/11/2024 [facility] Work Phone: Comment on above: 1 Occurrences starti ng 02/10/2023 until 02/11/2024 End: 08-16-2024 ECG COMPLETE ECG COMPLETE ECG Routine Tachycardia 1 Occurrences starting 08/17/2023 until 08/16/2024 [facility] Comment on above: 1 Occurrences starti ng 08/17/2023 until 08/16/2024 End: 02-16-2023 EMG(NEURO/NI) EMG(NEURO/NI) EMG Routine Hand weakness 1 Occurrences starting 02/16/2022 until 02/16/2023 [facility] Work Phone: Comment on above: 1 Occurrences starti ng 02/16/2022 until 02/16/2023 End: 02-16-2023 EPIL EEG LONG EPIL EEG LONG NEUROLOGY Routine Transient loss of consciousness 1 Occurrences starting 02/16/2022 until 02/16/2023 [facility] Work Phone: Comment on above: 1 Occurrences starti ng 02/16/2022 until 02/16/2023 EPIL VEEG ADMIT TO EMU/PMU EPIL VEEG ADMIT TO EMU/PMU NEUROLOGY Routine Transient loss of consciousness Convulsions, unspecified convulsion type (HCC) Ordered: 03/25/2022 [facility] Work Phone: Comment on above: Ordered: 03/25/2022 End: 03-11-2024 LUNG DIFFUSION CAPACITY (DLCO) LUNG DIFFUSION CAPACITY (DLCO) PFT Routine SOB (shortness of breath) 1 Occurrences starting 02/12/2023 until 03/11/2024 [facility] Work Phone: Comment on above: 1 Occurrences starti ng 02/12/2023 until 03/11/2024 End: 03-11-2024 LUNG VOLUMES LUNG VOLUMES PFT Routine SOB (shortness of breath) 1 Occurrences starting 02/12/2023 until 03/11/2024 [facility] Work Phone: Comment on above: 1 Occurrences starti ng 02/12/2023 until 03/11/2024 Metanephrine Free [Mass/volume] in Serum or Plasma [facility] Work Phone: Metanephrines [Mass/volume] in 24 hour Urine [facility] Work Phone: Metanephrines/Creati nine [Mass Ratio] in Urine [facility] Work Phone: End: 03-08-2025 MR Brain WO and W contrast IV MRI BRAIN WO/W IVCON Radiology Routine Chronic migraine w/o aura w/o status migrainosus, not intractable Arnold-Chiari malformation (HCC) Exertional headache 1 Occurrences starting 02/07/2024 until 03/08/2025 [facility] Work Phone: Comment on above: 1 Occurrences starti ng 02/07/2024 until 03/08/2025 End: 03-08-2025 MRA Head vessels WO contrast MRA BRAIN WO IVCON Radiology Routine Chronic migraine w/o aura w/o status migrainosus, not intractable Arnold-Chiari malformation (HCC) Exertional headache 1 Occurrences starting 02/07/2024 until 03/08/2025 [facility] Comment on above: 1 Occurrences starti ng 02/07/2024 until 03/08/2025 End: 06-28-2023 Mra head w/o & w/contrast material MRV BRAIN WO/W IVCON Radiology Routine Intractable migraine with aura without status migrainosus Positional headache Arnold-Chiari malformation (HCC) 1 Occurrences starting 05/29/2022 until 06/28/2023 [facility] Work Phone: Comment on above: 1 Occurrences starti ng 05/29/2022 until 06/28/2023 End: 06-28-2023 Mri brain brain stem w/o w/contrast material MRI BRAIN WO/W IVCON Radiology Routine Intractable migraine with aura without status migrainosus Positional headache Arnold-Chiari malformation (HCC) 1 Occurrences starting 05/29/2022 until 06/28/2023 [facility] Work Phone: Comment on above: 1 Occurrences starti ng 05/29/2022 until 06/28/2023 End: 10-03-2022 Mri spinal canal cervical w/o & w/contr matrl MRI CERVICAL SPINE WO/W IVCON Radiology Routine Syringomyelia and syringobulbia (HCC) 1 Occurrences starting 09/03/2021 until 10/03/2022 [facility] Work Phone: Comment on above: 1 Occurrences starti ng 09/03/2021 until 10/03/2022 End: 10-03-2022 Mri spinal canal lumbar w/o & w/contr matrl MRI LUMBAR SPINE WO/W IVCON Radiology Routine Syringomyelia and syringobulbia (HCC) 1 Occurrences starting 09/03/2021 until 10/03/2022 [facility] Work Phone: Comment on above: 1 Occurrences starti ng 09/03/2021 until 10/03/2022 End: 10-03-2022 Mri spinal canal thoracic w/o & w/contr matrl MRI THORACIC SPINE WO/W IVCON Radiology Routine Syringomyelia and syringobulbia (HCC) 1 Occurrences starting 09/03/2021 until 10/03/2022 [facility] Work Phone: Comment on above: 1 Occurrences starti ng 09/03/2021 until 10/03/2022 Normetanephrine [Mass/volume] in 24 hour Urine [facility] Work Phone: Normetanephrine measurement [facility] Work Phone: Patient Education Central Spinal Cord Syndrome [facility] Work Phone: Patient referral [facility] Work Phone: End: 10-03-2022 Radex spine cervical 2 or 3 views XR CERVICAL 2V FLEX/EXT Radiology Routine Syringomyelia and syringobulbia (HCC) 1 Occurrences starting 09/03/2021 until 10/03/2022 [facility] Work Phone: Comment on above: 1 Occurrences starti ng 09/03/2021 until 10/03/2022 End: 03-11-2024 SIX MINUTE WALK SIX MINUTE WALK PFT Routine SOB (shortness of breath) 1 Occurrences starting 02/12/2023 until 03/11/2024 [facility] Work Phone: Comment on above: 1 Occurrences starti ng 02/12/2023 until 03/11/2024 End: 03-11-2024 SPIROMETRY - BASELINE AND POST DILATOR SPIROMETRY - BASELINE AND POST DILATOR PFT Routine SOB (shortness of breath) 1 Occurrences starting 02/12/2023 until 03/11/2024 [facility] Work Phone: Comment on above: 1 Occurrences starti ng 02/12/2023 until 03/11/2024 [facility] Immunizations Immunization Date Immunization Notes Care Provider Fa cility 02-16-2024 influenza virus vaccine, unspecified formulation MARIO FIGUEROA [facility] 02-16-2024 influenza, seasonal, injectable, preservative free Mario Figueroa DIRECTOR OF MARKETING [employer] Work Phone: [facility] 02-16-2024 Immunization, In Clinic,; Translations: [Drug or medicament (substance)] Mario Figueroa DIRECTOR OF [employer] Work Phone: [facility] 03-10-2022 influenza, injectabl e, quadrivalent, preservative free Mario Figueroa DIRECTOR OF MARKETING [employer] Work Phone: [facility] 03-10-2022 influenza virus vaccine, unspecified formulation Rita Dougherty MD Work Phone: [facility] 03-14-2021 COVID-19 mRNA-1273 (Moderna) MD Siobhan Evangelista Work Phone: [facility] Payers Date Payer Category Payer Medicaid [id number] 2024 Unknown [id number] 2021 Self-pay [id number] 2021 Unknown MMO MMO [employer] [id number] 2021-Present [phone] [address] [place] [address] PPO [id number] 2019 Unknown [id number] 2018 Private Health Insurance [id number] 2018 Unknown 2018 Unknown [id number] 1990 Unknown [id number] 2.16.840.1.208106.3.579.2.1 96 1990 Unknown [id number] 2.16.840.1.523631.3.579.2.5 93 1990 Unknown [id number] 2.16.840.1.979421.3.579.2.5 93 1990 Unknown [id number] 2.16.840.1.657573.3.579.2.5 93 1990 Unknown [id number] 2.16.840.1.591375.3.579.2.5 93 1990 Unknown [id number] 2.16.840.1.218141.3.579.2.5 93 1990 Unknown [id number] 2.16.840.1.998111.3.579.2.1 259 1990 Unknown [id number] 2.16.840.1.740934.3.579.2.1 286 1990 Unknown [id number] 2.16.840.1.851312.3.579.2.1 286 1990 Unknown [id number] 2..840.1.006402.3.579.2.1 286 1990 Unknown [id number] 2..840.1.237755.3.579.2.1 286 1990 Unknown [id number] 2.840.1.345844.3.579.2.1 286 1990 Unknown [id number] 2..840.1.905668.3.579.2.1 286 1990 Unknown [id number] 2.16.840.1.277859.3.579.2.1 286 1990 Unknown [id number] 2..840.1.703747.3.579.2.1 286 1990 Unknown [id number] 2.16.840.1.745516.3.579.2.1 286 1990 Unknown [id number] 2..840.1.461219.3.579.2.1 286 1990 Unknown [id number] 2.16.840.1.665982.3.579.2.1 286 1990 Unknown [id number] 2.16.840.1.550794.3.579.2.1 286 1990 Unknown [id number] 2..840.1.182441.3.579.2.1 286 1990 Unknown [id number] 2.16.840.1.673663.3.579.2.1 286 1990 Unknown [id number] 2.16.840.1.347560.3.579.2.1 286 1959 Self-pay [id number] 1959 Unknown [id number] Unknown [id number] 2.16.840.1.911241.3.579.2.5 31 Unknown [id number] 2.16.840.1.576078.3.579.2.5 31 Social History Date Type Detail Facility Start: 09-03-2021 End: 02-10-2023 Tobacco smoking status NHIS Ex-smoker [facility] Start: 09-03-2021 End: 02-10-2023 Tobacco use and exposure Smokeless tobacco non-user [facility] Start: 09-03-2021 End: 02-11-2024 Alcohol intake Current drinker of alcohol (finding) [facility] Start: 1990 Sex Assigned At Not on file C [facility] Start: 08-24-2021 End: 05-29-2022 Exposure to SARS-CoV-2 (event) Not sure [facility] Start: 04-12-2010 End: 04-12-2011 History of tobacco use Current smoker [facility] Start: 10-25-2021 End: 11-04-2021 Exposure to SARS-CoV-2 (event) Unable to assess [facility] Start: 1990 Sex Assigned At Female F [facility] Start: 12-20-2021 End: 12-30-2021 Exposure to SARS-CoV-2 (event) Yes [facility] Work Phone: Start: 01-22-2022 History SDOH Financial 5 [facility] Start: 01-22-2022 History SDOH Food Worry 1 [facility] Start: 01-22-2022 History SDOH Transpo rt Med 2 [facility] Start: 03-25-2022 Alcohol Comment hardly any [facility] Start: 05-29-2022 End: 08-17-2023 History of Social function [facility] Start: 05-29-2022 End: 08-17-2023 Tobacco use panel [facility] How hard is it for y ou to pay for the very basics like food, housing, medical care, and heating Not hard at all [facility] (I/We) worried damián er (my/our) food would run out before (I/we) got money to buy more. Never true [facility] In the past 12 month s, was there a time when you were not able to pay the mortgage or rent on time? No [facility] Start: 09-28-2021 Gender identity Identifies as female gender (finding) [facility] Start: 09-28-2021 Sexual orientation Heterosexual (ehsan pierce) [facility] Start: 04-12-2010 End: 04-12-2011 History of tobacco use Cigarette Smoker [facility] Start: 02-10-2023 Alcohol Comment socially [facility] Start: 06-03-2023 End: 02-07-2024 Alcohol intake Ex-drinker (finding) [facility] Start: 01-29-2022 [facility] Start: 05-28-2020 Alcohol Comment [facility] Start: 11-15-2014 Sex Female (finding) [facility] Goals Date Patient Goal Desired Activity /State Personal health goal Functional Status Date Assessment Result Facility 12-12-2021 Functional status Patient at Baseline [facility] Work Phone: Mental Status Date Assessment Result Facility 12-12-2021 Cognitive function Cognitive Sta tus Patient at Baseline [facility] Work Phone: Clinical Notes 06-12-2020 to 02-18-2024 Telephone Encounter - Brock Wang PA-C - 02/18/2024 12:21 PM ESTTelephone Encounter - Brock Wang PA-C - 02/18/2024 12:21 PM ESTTelephone Encounter - Brock Wang PA-C - 02/18/2024 12:20 PM EST Note Date & Type Note Facility 02-18-2024 Telephone encounter Note See telephone and MCM. [facility] 02-18-2024 Miscellaneous Notes See telephone and MCM. documented in this encounter [facility] 02-18-2024 Telephone encounter Note Called to discussed new medicine nortriptyline. SE, benefits risks and instructions. Patient is aware and agrees. [facility] 02-18-2024 Miscellaneous Notes Called to discussed new medicine nortriptyline. SE, benefits risks and instructions. Patient is aware and agrees. documented in this encounter [facility] 02-18-2024 Telephone encounter Note Request for medical clearance scanned into shared EP drive. Response to request faxed and confirmation scanned into shared EP drive. [facility] 02-18-2024 Miscellaneous Notes Request for medical clearance scanned into shared EP drive. Response to request faxed and confirmation scanned into shared EP drive. documented in this encounter [facility] 02-16-2024 History of Presen t illness Narrative Influenza vaccine administered at this time. Patient tolerated well with no adverse reactions. VIS given to patient. documented in this encounter [facility] 02-07-2024 History of Presen t illness Narrative Images from the original note were not included. [facility] Follow-Up VIRTUAL VISIT This is a virtual visit using [employer] Video Visit. It required patient-provider interaction for the medical decision making as documented below. I have communicated my name and active licensure. The patient's identity and physical location were verified at the time of this visit. Either the patient or their legal business services representative has been informed of the risks and benefits of -- and alternatives to -- treatment through a remote evaluation and consents to proceed with the evaluation remotely. Pastor Heller is a 33 year old female here today for a follow up regarding headaches. Last Visit by myself 04/20/2023: Pastor Heller is a 32 year old here today for follow-up evaluation. Pastor Heller has a past medical history of Chiari malformation, migraines, depression, ovarian cyst, nephrolithiasis. Patient presents today for follow-up regarding POTS and headaches. Notes that last appointment with PCP she was initiated on Florinef due to post-COVID symptoms. Since initiating Florinef 0.1 twice daily has noticed worsening headaches. Headaches occurring daily usually located in occipital, temporal, frontal area. Usually throbbing or stabbing with associated photo phobia, phonophobia, and nausea. Headaches lasting between 2 to 4 hours. Patient has been using Tylenol and Motrin for migraine abortive therapy. No positional symptoms, headaches are not related to cough/sneeze, and denies tinnitus. Also concerned for worsening POTS symptoms noticing exercise intolerance and tachycardia. Neurological examination obtained in office unremarkable. Orthostatic vital signs obtained in office show resting heart rate around 99 bpm with an increase in standing 30 bpm. Plan to refer to headache clinic. Patient was referred in the past for evaluation of headaches but did not make this appointment. Due to daily headaches and presence of Chiari malformation feel that headache provider is appropriate. Due to worsening POTS symptoms in relation to Florinef, will decrease Florinef from 0.1 tablets twice daily to 0.1 tablets once daily. Also considered adding propranolol, however unable to take propranolol due to interaction with Zanaflex. Discussed with patient, following 1 week of decreased dose of Florinef patient agrees to send orthostatic vitals. May consider alternate blood pressure medicine at this time. Patient is also set up with cardiology syncope clinic for further management of POTS in August 2023. Patient is aware and agrees to plan. Patient agrees to notify for any new or worsening symptoms. Plan to follow-up with either Ortega Natarajan APRN., CNP. or myself following appointment with cardiology syncope clinic. Last Visit by myself 06/07/2023: Pastor Heller is a 32 year old female here today for follow up. Plan: POTS conservative measures Referral to neuropsych testing due to trouble with memory or cognition, continue with speech therapy Can trial B12 1000 mg daily or CoQ10 100 mg daily for fatigue Follow up in 3-6 months or sooner with new or worsening symptoms. Today February 07, 2024 : Here today for a follow up regarding increased headaches. Having more headaches over the last few months. Feels headaches are now unbearable. Was seen by headache clinic who initiated patient on propranolol and rizatriptan as needed. Currently taking methocarbamol. Headaches occurring daily. Headaches located in occipital area, occasionally bitemporal. Severe headaches 4x per months. Headaches described as throbbing. Associated sound sensitivity and nausea. Admits to exertional headache happening frequently. Headaches brought on by sneezing. No positional trigger. Headaches lasting 6 hours to days. No history of stroke or heart disease. Using motrin daily 500 mg. Methocarbamol using 2x weekly. No change in vision. Previous medications: Propranolol Methocarbamol Topamax Gabapentin Lexapro Medications Reviewed PREMARIN 0.9 mg tablet Take 0.9 mg by mouth once daily. atomoxetine (STRATTERA) 40 mg capsule Take 40 mg by mouth once daily. propranolol ER (INDERAL LA) 60 mg 24 hr capsule take 1 capsule by mouth every day cyanocobalamin/cobamamide (B12 SUBLINGUAL) Dissolve under the tongue. COQ10, UBIQUINOL, ORAL Take by mouth. Vkera-2-LYW-EPA-Fish Oil (FISH OIL) 1,000 mg (120 mg-180 mg) cap methocarbamol (ROBAXIN) 500 mg tablet Take 1 tablet by mouth two times a day as needed. (Patient taking differently: Take 500 mg by mouth once daily as needed.) Allergies Reviewed Reveiwed of work up to date: MRI Brain 06/22/2022: No acute intracranial findings. MRV Brain06/22/2022: 1. No evidence for dural venous sinus thrombosis. 2. 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 This is nonspecific and may represent Chiari I malformation. Clinical correlation is recommended. Labs Vit E, ceruloplasmin WNL EPS Tilt 03/06/2022 * FINAL IMPRESSIONS * - The test was completed per protocol at 45 minutes of 70 degree tilt. - Systolic blood pressures: 107 mmHg at start to 125 mmHg at end of tilt. - Diastolic blood pressures: 72 mmHg at start to 71 mmHg at end of tilt. - Blood pressure upon return to supine position was 128/79 mmHg. - Heart rates: 87 bpm at start to 95 bpm at end of tilt. - Heart rate upon return to supine position was 83 bpm. - Patient signs/symptoms included: BLURRY VISION, DIZZINESS, HEADACHE, HOT, LIGHTHEADED, PALPITATIONS, SEE NOTE, TINGLING. - Overall: A postural increase in heart rate was seen that was borderline for accentuated postural tachycardia. EMG 03/25/2022 Study Interpretation Electrodiagnostic examination of the right upper limb reveals: 1. No definite evidence of a right ulnar neuropathy. 2. No definite evidence of a right cervical (including C5-T1) motor radiculopathy. 3. Screening studies for median mononeuropathy did not reveal any definite abnormalities. 4. There is a right cate grabiel anastomosis present which is a normal anatomical variant. EEG Long 03/19/2022 Impression: This EEG is within normal limits. No epileptiform discharges or EEG seizures were seen during this recording. CT Cervical WO 01/23/2022 IMPRESSION: 1. The degree of shift of the C1 lateral masses over the C2 lateral masses with rotation to either side within the spectrum of normal. Please see reference article below. 2. No change in the positioning of the dens relative to the anterior arch of C1 nor in the atlanto-occipital articulations with rotation to either side. Anatomic Variant: None. Assume 7 cervical vertebrae with counting from the craniocervical junction. Echo 01/23/2022 CONCLUSIONS: - Exam indication: Initial evaluation valvular heart disease - The left ventricle is normal in size. Left ventricular systolic function is normal. EF = 61 5% (2D biplane) Normal left ventricular diastolic function. - The right ventricle is normal in size. Right ventricular systolic function is normal. - There are no significant valvular abnormalities. - The patient has not had a prior CC echocardiographic exam for comparison. PAST MEDICAL HISTORY: ACTIVE PROBLEM LIST Paralysis (Hcc) Pots (Postural Orthostatic Tachycardia Syndrome) Syncope Hyperlipidemia Ldl Goal <70 Migraine Arnold-Chiari Malformation (Hcc) Post Covid-19 Condition, Unspecified Sinus Tachycardia Palpitations Hx of Syncope Finding of Above Normal Blood Pressure Depression With Anxiety Chest Pain Central Cord Syndrome (Hcc) Calculus of Kidney PAST SURGICAL HISTORY Procedure Laterality Date ORAL SURGERY PROCEDURE REVISE MEDIAN N/CARPAL TUNNEL SURG VAGINAL HYSTERECTOMY for uncontrolled vaginal bleeding Social History Tobacco Use Smoking status: Former Current packs/day: 0.00 Average packs/day: 2.0 packs/day for 1 year (2.0 ttl pk-yrs) Types: Cigarettes Start date: 2010 Quit date: 2011 Years since quittin.8 Smokeless tobacco: Never Vaping Use Vaping status: Never Used Substance Use Topics Alcohol use: Not Currently Drug use: Not Currently family history includes Alcohol/Drug in her father, mother, and paternal grandfather; Autoimmune disease in her father; Breast Cancer in her paternal grandmother; Diabetes in her father; Genitourinary () in her mother; Seizures in her brother; Stroke in her father. EXAM: Exam is observational at best. General Appearance: well appearing, in no acute distress Mental status evaluation during the interview and examination showed normal level of consciousness, orientation, language, memory, praxis, and higher intellectual function Affect: Normal Speech: normal Cranial Nerves: III, IV, -EOMI: full. VII-face is symmetric without evidence of weakness. VIII-hearing intact. XII-tongue protrudes midline with normal movements. IMPRESSION/PLAN: (G43.709) Chronic migraine w/o aura w/o status migrainosus, not intractable (primary encounter diagnosis) Pastor Heller is a 33 year old female here today for follow up. Was initially managed by neuromuscular for orthostatic intolerance. Presents today for worsening headaches. Currently treated by headache clinic for worsening headaches. Headaches occurring daily over the last 3-4 months. Headaches on average lasting 6 hours to days. Located in occipital area and described as throbbing. Headaches with associated phonophobia and nausea. Has been taking motrin daily. Denies positional trigger with headache, however, does admit to exertional trigger. Since currently being managed by headache clinic will reach out to headache provider. Consideration of nortriptyline for prevention and sumatriptan for abortive. Will also send for repeat imagine due to worsening and exertional headache. In the meantime, continue with supportive therapies and set up follow up appointment with headache clinic. Patient is aware and agrees to plan. Patient agrees to notify for any new or worsening symptoms. Discussed red flag/signs/symptoms and when to proceed to ER. I spent a total of 35 minutes on the date of the service which included preparing to see the patient, [id number] patient care, completing clinical documentation, obtaining and/or reviewing separately obtained history, performing a medically appropriate examination, counseling and educating the patient/family/caregiver, and ordering medications, tests, or procedures. Brock Wang PA-C Neuromuscular Medicine [facility] [place]. [address] Appointment: [phone] During our virtual visit encounter we discussed my concerns neurologically in terms of diagnosis, impact on health and activities of living, and addressed questions. I tried to reassure the patient and also address questions. I explained to the patient to call if any questions, to review results, and I want to see them return for neurological follow up as mychart as next steps of communication is agreed upon Patient verbalizes understanding and I have addressed concerns and questions at this visit Patient has my contacts, educational material provided, and my chart sign up. After visit summary discussed. 1. This office note has been dictated and may contain minor typographic errors that escaped review 2. The nursing staff and medical assistants are a major part of YOUR TREATMENT TEAM and will be handling your phone calls and inquiries, if any. Unless explicitly told otherwise at the time of your office visit, your study results and ensuing treatment plans will be discussed during your follow-up appointment. If you do not have a follow-up appointment and wish to discuss any issues directly with me, please feel free to obtain one. 3. It is my practice to not fill disability or any other insurance-related forms/documention. All of the office notes, study results, and other pertinent documentation generated as part of your evaluation will be available to you and to your Primary Care Physician (PCP). Use of this material to complete such forms will be at the discretion of your PCP/referring physician Answers submitted by the patient for this visit: Compass 31 (Submitted on 02/07/2024) In the past year, have you ever felt faint, dizzy, goofy , or had difficulty thinking soon after standing up from a sitting or lying position?: Yes In the past year, have you ever noticed color changes in your skin, such as red, white, or purple?: No In the past 5 years, what changes, if any, have occurred in your general body sweating?: I sweat much more than I used to Do your eyes feel excessively dry? : No Does your mouth feel excessively dry? : Yes For the symptom of dry eyes or dry mouth that you have had for the longest period of time, is this symptom:: Getting much worse In the past year, have you noticed any changes in how quickly you get full when eating a meal?: I get full a lot more quickly now than I used to In the past year, have you felt excessively full or persistently full (bloated feeling) after a meal?: A lot of the time In the past year, have you vomited after a meal? : Sometimes In the past year, have you had a cramping or colicky abdominal pain?: A lot of the time In the past year, have you had any bouts of diarrhea?: No In the past year, have you been constipated? : Yes In the past year, have you ever lost control of your bladder function?: Never In the past year, have you had difficulty passing urine?: Never In the past year, have you had trouble completely emptying your bladder?: Occasionally In the past year, without sunglasses or tinted glasses, has bright light bothered your eyes?: Occasionally In the past year, have you had trouble focusing your eyes?: Occasionally Is this most troublesome symptom with your eyes (i.e. sensitivity to bright light or trouble focusing) getting:: Getting somewhat worse (Submitted on 02/07/2024) When standing up, how frequently do you get these feelings or symptoms?: Occasionally How would you rate the severity of these feelings or symptoms?: Moderate In the past year, have these feelings or symptoms that you have experienced:: Gotten somewhat better (Submitted on 02/07/2024) How frequently are you constipated? : Occasionally How severe are these episodes of constipation? : Moderate Is your constipation getting:: Somewhat worse (Submitted on 02/07/2024) How severe is this sensitivity to bright light?: Mild (Submitted on 02/07/2024) How severe is this focusing problem? : Moderate documented in this encounter [facility] 02-07-2024 Note HNO ID: [id number] Author: BROCK WANG PA-C Service: ? Author Type: Physician Cereal Maker Type: Progress Notes Filed: 02/07/2024 14:45 Note Text: [facility]rom[facility] Follow-Up VIRTUAL VISIT This is a virtual visit using [employer] Zoom Video Visit. It required patient-provider interaction for the medical decision making as documented below. I have communicated my name and active licensure. The patient's identity and physical location were verified at the time of this visit. Either the patient or their legal business services representative has been informed of the risks and benefits of -- and alternatives to -- treatment through a remote evaluation and consents to proceed with the evaluation remotely. Pastor Heller is a 33 year old female here today for a follow up regarding headaches. Last Visit by myself 04/20/2023: Pastor Heller is a 32 year old here today for follow-up evaluation. Pastor Heller has a past medical history of Chiari malformation, migraines, depression, ovarian cyst, nephrolithiasis. Patient presents today for follow-up regarding POTS and headaches. Notes that last appointment with PCP she was initiated on Florinef due to post-COVID symptoms. Since initiating Florinef 0.1 twice daily has noticed worsening headaches. Headaches occurring daily usually located in occipital, temporal, frontal area. Usually throbbing or stabbing with associated photo phobia, phonophobia, and nausea. Headaches lasting between 2 to 4 hours. Patient has been using Tylenol and Motrin for migraine abortive therapy. No positional symptoms, headaches are not related to cough/sneeze, and denies tinnitus. Also concerned for worsening POTS symptoms noticing exercise intolerance and tachycardia. Neurological examination obtained in office unremarkable. Orthostatic vital signs obtained in office show resting heart rate around 99 bpm with an increase in standing 30 bpm. Plan to refer to headache clinic. Patient was referred in the past for evaluation of headaches but did not make this appointment. Due to daily headaches and presence of Chiari malformation feel that headache provider is appropriate. Due to worsening POTS symptoms in relation to Florinef, will decrease Florinef from 0.1 tablets twice daily to 0.1 tablets once daily. Also considered adding propranolol, however unable to take propranolol due to interaction with Zanaflex. Discussed with patient, following 1 week of decreased dose of Florinef patient agrees to send orthostatic vitals. May consider alternate blood pressure medicine at this time. Patient is also set up with cardiology syncope clinic for further management of POTS in August 2023. Patient is aware and agrees to plan. Patient agrees to notify for any new or worsening symptoms. Plan to follow-up with either Ortega Natarajan APRN., CNP. or myself following appointment with cardiology syncope clinic. Last Visit by myself 06/07/2023: Pasotr Heller is a 32 year old female here today for follow up. Plan: POTS conservative measures Referral to neuropsych testing due to trouble with memory or cognition, continue with speech therapy Can trial B12 1000 mg daily or CoQ10 100 mg daily for fatigue Follow up in 3-6 months or sooner with new or worsening symptoms. Today February 07, 2024 : Here today for a follow up regarding increased headaches. Having more headaches over the last few months. Feels headaches are now unbearable. Was seen by headache clinic who initiated patient on propranolol and rizatriptan as needed. Currently taking methocarbamol. Headaches occurring daily. Headaches located in occipital area, occasionally bitemporal. Severe headaches 4x per months. Headaches described as throbbing. Associated sound sensitivity and nausea. Admits to exertional headache happening frequently. Headaches brought on by sneezing. No positional trigger. Headaches lasting 6 hours to days. No history of stroke or heart disease. Using motrin daily 500 mg. Methocarbamol using 2x weekly. No change in vision. Previous medications: Propranolol Methocarbamol Topamax Gabapentin Lexapro Medications Reviewed PREMARIN 0.9 mg tablet Take 0.9 mg by mouth once daily. atomoxetine (STRATTERA) 40 mg capsule Take 40 mg by mouth once daily. propranolol ER (INDERAL LA) 60 mg 24 hr capsule take 1 capsule by mouth every day cyanocobalamin/cobamamide (B12 SUBLINGUAL) Dissolve under the tongue. COQ10, UBIQUINOL, ORAL Take by mouth. Djbcm-1-DCY-EPA-Fish Oil (FISH OIL) 1,000 mg (120 mg-180 mg) cap methocarbamol (ROBAXIN) 500 mg tablet Take 1 tablet by mouth two times a day as needed. (Patient taking differently: Take 500 mg by mouth once daily as needed.) Allergies Reviewed Reveiwed of work up to date: MRI Brain 06/22/2022: No acute intracranial findings. MRV Brain06/22/2022: 1. No evidence for dural venous sinus thrombosis. 2. Cerebellar tonsillar ectopia (more content not included)... [facility] 02-02-2024 History of Presen t illness Narrative Images from the original note were not included. [facility] [place] [facility] Department of Cardiovascular Medicine SECTION OF CARDIAC PACING and ELECTROPHYSIOLOGY OUTPATIENT VISIT DATE February 02, 2024 OUTPATIENT VISIT TYPE ESTABLISHED PRIMARY CARE PHYSICIAN: Siobhan Evangelista [address] [place] [address] CHIEF COMPLAINT: syncope HISTORY OF PRESENT ILLNESS: Ms. Heller is a 33 year old female who presents today for follow-up visit for syncope. She has a prior diagnosis of POTS following COVID (her tilt test here did not show sustained increase in HR>30 bpm and would not meet traditional criteria for POTS). She has been evaluated by both neurology and cardiology. She has been on propranolol, metoprolol, bisoprolol, ivabradine, midodrine and florinef. She had not had syncope in a year when I first saw her but was having near syncope.. 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 Her CPET was minimally reduced and consistent with cardiac deconditioning. She has been having abdominal pain for several months has an incisional bulge from her hysterectomy, saw her PCP and is planned for CT of abdomen to assess hernia, she has had constipation and not had a bowel movement in a week. she has started strattera for brain fog. CPET 08/27/23 The overall pattern is suggestive of reduced aerobic fitness due to a cardiovascular pattern of exercise limitation. Deconditioning may be a contributing factor. Echo 02/10/23 CONCLUSIONS: - Exam indication: POTS - The left ventricle is normal in size. Left ventricular systolic function is normal. EF = 63 5% (2D biplane) Normal left ventricular diastolic function. - The right ventricle is normal in size. Right ventricular systolic function is normal. - There are no significant valvular abnormalities. - Estimated right ventricular systolic pressure is likely underestimated due to a weak or incomplete tricuspid regurgitation signal and is, at least, 12 mmHg consistent with normal pulmonary artery pressures. Estimated right atrial pressure is 3 mmHg based on IVC assessment. - Exam was compared with the prior echocardiographic exam performed on 01/23/2022 ([place]). There is no significant change. OS event monitor 11/02/22 Narrative Patient was monitored between October 16, 2022 through October 29, 2022. There were a total of 4 transmissions, all transmissions demonstrated sinus tachycardia with rates up to 140 beats per minute. No significant atrial or ventricular ectopy noted Tilt 03/06/22 - Overall: A postural increase in heart rate was seen that was borderline for accentuated postural tachycardia. NOTE: there was not a sustained HR >30 bpm in the first ten minutes this study is not diagnostic of POTS OSH Monitor 11/17/2021 The patient was monitored between November 17 and December 22, 2021. Recordings were made for symptoms of heart racing , short of breath , dizzy and lightheaded . Sinus rhythm and sinus tachycardia were noted throughout the study. There were no arrhythmias and no supraventricular or ventricular ectopy was noted. Nursing Intake: Strattera was added to combat her brain fog and has helped slightly. She declined increasing due to heart rates. She was having increased headaches as well. She denies orthopnea, PND, cough, edema or syncope. She drinks a gallon of water a day and uses liquid IV and salts her food. She does not use compression. 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 She has been having bowel and bladder issues (difficulty going and feeling like she has to pee all the time). She has not gone for a week and has abdominal pain. She has tried mineral oil, miralax and other laxatives. She used to be very regular. She has had abdominal pain for five months; the constipation started a week ago. PAST CARDIAC HISTORY: None PAST MEDICAL HISTORY Diagnosis Date Arnold-Chiari malformation (HCC) Central cord syndrome (HCC) COVID Depression Family history of seizure disorder Migraines Nephrolithiasis Ovarian cyst Post-COVID syndrome POTS (postural orthostatic tachycardia syndrome) Preeclampsia Sinus tachycardia Syncope PAST SURGICAL HISTORY Procedure Laterality Date ORAL SURGERY PROCEDURE REVISE MEDIAN N/CARPAL TUNNEL SURG VAGINAL HYSTERECTOMY for uncontrolled vaginal bleeding SOCIAL HISTORY Social History Tobacco Use Smoking status: Former Current packs/day: 0.00 Average packs/day: 2.0 packs/day for 1 year (2.0 ttl pk-yrs) Types: Cigarettes Start date: 2010 Quit date: 2011 Years since quittin.8 Smokeless tobacco: Never Vaping Use Vaping status: Never Used Substance Use Topics Alcohol use: Not Currently Drug use: Not Currently FAMILY HISTORY Problem Relation Age of Onset Genitourinary () Mother Alcohol/Drug Mother Diabetes Father Alcohol/Drug Father Autoimmune disease Father Stroke Father Breast Cancer Paternal Grandmother Alcohol/Drug Paternal Grandfather Seizures Brother ALLERGIES: ALLERGIES Allergen Reactions Adhesive Tape-Silic* Rash Bactrim [Sulfametho* Hives Sulfa (Sulfonamide * Hives Morphine Other: See Comments Tachycardia MEDICATIONS: PREMARIN 0.9 mg tablet Take 0.9 mg by mouth once daily. atomoxetine (STRATTERA) 40 mg capsule Take 40 mg by mouth once daily. propranolol ER (INDERAL LA) 60 mg 24 hr capsule take 1 capsule by mouth every day cyanocobalamin/cobamamide (B12 SUBLINGUAL) Dissolve under the tongue. COQ10, UBIQUINOL, ORAL Take by mouth. Aqysa-6-THZ-EPA-Fish Oil (FISH OIL) 1,000 mg (120 mg-180 mg) cap methocarbamol (ROBAXIN) 500 mg tablet Take 1 tablet by mouth two times a day as needed. (Patient taking differently: Take 500 mg by mouth once daily as needed.) [facility] Score Please estimate the frequency of the following symptoms: Never-0, Rare-1, Occasional-2, Frequent-3, Daily-4, Constant*-5 Symptoms Subtotal Syncope/Near Syncope Score 2 Dizziness/Lightheadedness Score 3 Exercise Intolerance Score 2 Headache Score 2 Sleep Problems Score 5 Total Frequency Score 16 *For syncope/near syncope multiple episodes daily Please estimate the severity of the following symptoms: None-0, Minimal-1, Mild-2, Moderate-3, Severe-4, Intolerable-5 Symptoms Subtotal Palpitations/Tachycardia Score 3 Fatigue Score 4 Brain Fog Score 5 Shortness of Breath Score 4 GI Symptoms Score* 5 Total Severity Score 21 *GI symptoms include nausea, bloating, diarrhea, constipation, poor appetite, abdominal pain, early satiety Total of Both Sections: 37 PHYSICAL EXAMINATION: BP 126/80 Pulse 78 Ht 152.4 cm (5') Wt 55.3 kg (122 lb) BMI 23.83 kg/m General: Well appearing, in no acute distress. Skin: No clubbing, no cyanosis. Eyes: Extra ocular movements intact Oropharynx: Teeth in good repair. Neck: No jugular venous distention, no carotid bruits, carotids have a normal upstroke, no palpable thyromegaly. Lungs: Clear to auscultation bilaterally, no wheezing or rhonchi. Heart: Regular rhythm, PMI not displaced, S1, S2 normal, no S3, no S4, no heaves, no rub and no murmur. Abdomen: Soft, nontender, bowel sounds normal, no palpable organomegaly, no bruits. Extremities: No peripheral edema . Grade 2/4 distal pulses bilaterally. Neuro: Oriented to person, place and time, alert, cooperative, gait coordinated. CARDIOVASCULAR MEDICINE TESTING: Electrocardiogram: sinus 67 bpm I have personally reviewed the Electrocardiogram. Assessment IMPRESSION: 1. Tachycardia - ICD9: 785.0, ICD10: R00.0 (primary diagnosis) 2. Palpitations - ICD9: 785.1, ICD10: R00.2 3. Post-COVID syndrome - ICD9: 139.8, ICD10: U09.9 4. SOB (shortness of breath) - ICD9: 786.05, ICD10: R06.02 5. Other post infection and related fatigue syndromes - ICD9: 780.79, ICD10: G93.39 6. Brain fog - ICD9: 799.59, ICD10: R41.89 7. Atypical chest pain - ICD9: 786.59, ICD10: R07.89 8. Syncope, unspecified syncope type - ICD9: 780.2, ICD10: R55 9. Other migraine without status migrainosus, not intractable - ICD9: 346.80, ICD10: G43.809 10. Arnold-Chiari malformation (HCC) - ICD9: 741.00, ICD10: Q07.00 PLAN AND RECOMMENDATIONS: Pastor overall feels about the same with regards to palpitations, fatigue and brain fog. Which is not surprising, we discussed the implications of post covid syndrome and that there is not a specific treatment for brainfog related. Stimulants are not likely to improve post covid brainfog and may overtime exacerbate fatigue. I encourage her to look at the [facility] post COVID website for additional information about post COVID syndrome. She had been to the covid recover clinic, I provided her a pamphlet about the recover trial in case this was something she is interested in. We discussed brain [facility] has a virtual group visit for post covid cognitive dysfunction but I was not able to find the order in [facility]. We discussed her CPET indicates cardiac deconditioning, but I cautioned to be careful with a progressive exercise program and stressed monitoring and avoiding post exertional malaise. We discussed the impact of PEM on chronic fatigue and why it is important to avoid. We discussed ensuring that she both tolerates the activity while doing it and is recovered to her functional baseline the following day. These are useful guides to assess for PEM. CONTACT INFORMATION: Irina Finley DO As a national referral center for Syncope and related conditions, seeing patients from across the country, we cannot provide work, FMLA, disability or other forms, or cardiac clearance. We will provide the office notes from the patient's most recent visit if they have not already been received, and other tests or evaluations performed here can be made available upon request. documented in this encounter [facility] 02-02-2024 Note HNO ID: [id number] Author: IRINA FINLEY DO Service: ? Author Type: Physician Type: Progress Notes Filed: 02/02/2024 12:58 Note Text: [facility] [place] [facility] Department of Cardiovascular Medicine SECTION OF CARDIAC PACING and ELECTROPHYSIOLOGY OUTPATIENT VISIT DATE February 02, 2024 OUTPATIENT VISIT TYPE ESTABLISHED PRIMARY CARE PHYSICIAN: Siobhan Evangelista [address] [place] [address] CHIEF COMPLAINT: syncope HISTORY OF PRESENT ILLNESS: Ms. Heller is a 33 year old female who presents today for follow-up visit for syncope. She has a prior diagnosis of POTS following COVID (her tilt test here did not show sustained increase in HR>30 bpm and would not meet traditional criteria for POTS). She has been evaluated by both neurology and cardiology. She has been on propranolol, metoprolol, bisoprolol, ivabradine, midodrine and florinef. She had not had syncope in a year when I first saw her but was having near syncope.. 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 Her CPET was minimally reduced and consistent with cardiac deconditioning. She has been having abdominal pain for several months has an incisional bulge from her hysterectomy, saw her PCP and is planned for CT of abdomen to assess hernia, she has had constipation and not had a bowel movement in a week. she has started strattera for brain fog. CPET 08/27/23 The overall pattern is suggestive of reduced aerobic fitness due to a cardiovascular pattern of exercise limitation. Deconditioning may be a contributing factor. Echo 02/10/23 CONCLUSIONS: - Exam indication: POTS - The left ventricle is normal in size. Left ventricular systolic function is normal. EF = 63 ? 5% (2D biplane) Normal left ventricular diastolic function. - The right ventricle is normal in size. Right ventricular systolic function is normal. - There are no significant valvular abnormalities. - Estimated right ventricular systolic pressure is likely underestimated due to a weak or incomplete tricuspid regurgitation signal and is, at least, 12 mmHg consistent with normal pulmonary artery pressures. Estimated right atrial pressure is 3 mmHg based on IVC assessment. - Exam was compared with the prior echocardiographic exam performed on 01/23/2022 ([place]). There is no significant change. OS event monitor 11/02/22 Narrative Patient was monitored between October 16, 2022 through October 29, 2022. There were a total of 4 transmissions, all transmissions demonstrated sinus tachycardia with rates up to 140 beats per minute. No significant atrial or ventricular ectopy noted Tilt 03/06/22 - Overall: A postural increase in heart rate was seen that was borderline for accentuated postural tachycardia. NOTE: there was not a sustained HR >30 bpm in the first ten minutes this study is not diagnostic of POTS OSH Monitor 11/17/2021 The patient was monitored between November 17 and December 22, 2021. Recordings were made for symptoms of ?heart racing?, short of breath?, ?dizzy? and ?lightheaded?. Sinus rhythm and sinus tachycardia were noted throughout the study. There were no arrhythmias and no supraventricular or ventricular ectopy was noted. Nursing Intake: Strattera was added to combat her brain fog and has helped slightly. She declined increasing due to heart rates. She was having increased headaches as well. She denies orthopnea, PND, cough, edema or syncope. She drinks a gallon of water a day and uses liquid IV and salts her food. She does not use compression. 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 She has been having bowel and bladder issues (difficulty going and feeling like she has to pee all the time). She has not gone for a week and has abdominal pain. She has tried mineral oil, miralax and other laxatives. She used to be very regular. She has had abdominal pain for five months; the constipation started a week ago. PAST CARDIAC HISTORY: None PAST MEDICAL HISTORY Diagnosis Date Arnold-Chiari malformation (HCC) Central cord syndrome (HCC) COVID Depression Family history of seizure disorder Migraines Nephrolithiasis Ovarian cyst Post-COVID syndrome POTS (postural orthostatic tachycardia syndrome) Preeclampsia Sinus tachycardia Syncope PAST SURGICAL HISTORY Procedure Laterality Date ORAL SURGERY PROCEDURE REVISE MEDIAN N/CARPAL TUNNEL SURG VAGINAL HYSTERECTOMY for uncontrolled vaginal bleeding SOCIAL HISTORY Social History Tobacco Use Smoking status: Former Current packs/day: 0.00 Average packs/day: 2.0 packs/day for 1 year (2.0 ttl pk-yrs) Types: Cigarettes Start date: 2010 Quit date: 2011 Years since quittin.8 Smokeless tobacco: N (more content not included)... [facility] 10-28-2023 Telephone encounter Note Completed. [facility] Work Phone: 10-28-2023 Miscellaneous Notes Completed. documented in this encounter [facility] 10-11-2023 Telephone encounter Note Physician: Killian Call from patient requesting refill. Please E-Scribe Last office visit 05/03/23 with Killian virtual Next office visit Not scheduled. Requested Prescriptions Pending Prescriptions Disp Refills propranolol ER (INDERAL LA) 60 mg 24 hr capsule [Pharmacy Med Name: PROPRANOLOL ER 60 MG CAPSULE] 90 capsule Sig: take 1 capsule by mouth every day [facility] Name: [facility] 10-11-2023 Miscellaneous Notes Physician: Killian Call from patient requesting refill. Please E-Scribe Last office visit 05/03/23 with [facility] virtual Next office visit Not scheduled. Requested Prescriptions Pending Prescriptions Disp Refills propranolol ER (INDERAL LA) 60 mg 24 hr capsule [Pharmacy Med Name: PROPRANOLOL ER 60 MG CAPSULE] 90 capsule Sig: take 1 capsule by mouth every day [facility] Name[facility] documented in this encounter [facility] 08-27-2023 Note HNO ID: [id number] Author: RICHARD ALONSO RRT Service: ? Author Type: Registered Resp Therapist Type: Progress Notes Filed: 08/27/2023 09:54 Note Text: PULM FUNCTION SMARTBLOCK: Provider: Irina Finley, Assisting Tech: Mynor Zamudio RRT AB CPET: 1 [facility] 08-27-2023 History of Presen t illness Narrative PULM FUNCTION SMARTBLOCK: Provider: Irnia Finley DO Assisting Tech: Mynor Zamudio RRT AB CPET: 1 documented in this encounter [facility] 08-24-2023 Telephone encounter Note Spoke with pt re: CPET scheduled 08/27/23 at 8:00am . Pt states She does not wear home oxygen and has no orthopedic limitations to exercise. Pt does (YOGA and resistance )exercise. Explained that ABGs would be drawn during the test. Informed patient to continue using regular medications as directed and to eat a light meal prior to the appointment. Pt also advised to wear comfortable clothes and shoes suitable for exercise. Pt verbalized understanding. [facility] 08-24-2023 Miscellaneous Notes Spoke with pt re: CPET scheduled 08/27/23 at 8:00am . Pt states She does not wear home oxygen and has no orthopedic limitations to exercise. Pt does (YOGA and resistance )exercise. Explained that ABGs would be drawn during the test. Informed patient to continue using regular medications as directed and to eat a light meal prior to the appointment. Pt also advised to wear comfortable clothes and shoes suitable for exercise. Pt verbalized understanding. documented in this encounter [facility] 08-17-2023 History of Presen t illness Narrative Images from the original note were not included. [facility] [place] [facility] Department of Cardiovascular Medicine SECTION OF CARDIAC PACING and ELECTROPHYSIOLOGY OUTPATIENT VISIT DATE August 17, 2023 OUTPATIENT VISIT TYPE CONSULTATION PRIMARY CARE PHYSICIAN: Siobhan Evangelista [address] [place] [address] REFERRING PHYSICIAN Rita Dougherty [address] [facility] [address] CHIEF COMPLAINT: syncope HISTORY OF PRESENT ILLNESS: Cardiac consultation at the request of Dr. Rita Dougherty. A copy of this consultation note will be provided to the requesting physician by way of shared Medical record or letter to requesting physician via [place] mail. Ms. Heller is a 32 year old female who is seen today for an opinion regarding syncope. The notes indicate a prior diagnosis of POTS following COVID infection. Her tilt test here was not consistent with POTS however? She has seen neurology as well as Dr. Elena and Dr Dougherty from cardiology. She has been on propranolol, metoprolol, bisoprolol, ivabradine, midodrine and florinef. She had preeclampsia during , her BP normalized after starting propranolol She has not had syncope for about a year but continues to have near syncope. She has been having headaches, mild episodic chest pain, she had been having trouble focusing and with memory. Has fatique. She had COVID early 2020 and a second bout early 2021. She relates shortness of breath all the time, is aggravated with talking for several minutes, she has to stop at the top of a flight of stairs to adjust. . Echo 02/10/23 CONCLUSIONS: - Exam indication: POTS - The left ventricle is normal in size. Left ventricular systolic function is normal. EF = 63 5% (2D biplane) Normal left ventricular diastolic function. - The right ventricle is normal in size. Right ventricular systolic function is normal. - There are no significant valvular abnormalities. - Estimated right ventricular systolic pressure is likely underestimated due to a weak or incomplete tricuspid regurgitation signal and is, at least, 12 mmHg consistent with normal pulmonary artery pressures. Estimated right atrial pressure is 3 mmHg based on IVC assessment. - Exam was compared with the prior echocardiographic exam performed on 01/23/2022 ([place]). There is no significant change. OS event monitor 11/02/22 Narrative Patient was monitored between October 16, 2022 through October 29, 2022. There were a total of 4 transmissions, all transmissions demonstrated sinus tachycardia with rates up to 140 beats per minute. No significant atrial or ventricular ectopy noted Tilt 03/06/22 - Overall: A postural increase in heart rate was seen that was borderline for accentuated postural tachycardia. NOTE: there was not a sustained HR >30 bpm in the first ten minutes this study is not diagnostic of POTS OSH Monitor 11/17/2021 The patient was monitored between November 17 and December 22, 2021. Recordings were made for symptoms of heart racing , short of breath , dizzy and lightheaded . Sinus rhythm and sinus tachycardia were noted throughout the study. There were no arrhythmias and no supraventricular or ventricular ectopy was noted. Nursing Intake: Ms. Heller is a 32 year old female who is seen today for syncope. She had COVID in April of 2020. She reportedly was diagnosed with POTS after a covid infection though her tilt table test largely ruled this out. She has been on multiple medications including beta blockers (metoprolol, bisoprolol, propranolol), midodrine, florinef, and ivabradine. She follows with neurology and was doing well on florinef and propranolol at the time of her last visit in May. Her first syncopal episode was in 2020. They occurred every 2-3 weeks. She had a prodrome of flushing, hazy vision and loss, and ringing in the ears. She reports she would have two to three episodes when this would happen. She would pass out, fall to the floor, come to and a few minutes later, despite still being seated, she would lose consciousness again. She believe she was out less than a minute. These seemed to be episodic. She would have them for a few days and then be fine for a few weeks. She presents to discuss the syncopal episodes she was having. Over the past year she has only had near syncopal episodes 2-3 times a month but has learned to recognize her triggers. These often happen after exertion. Her heart starts to race and she feels like her chest is going to explode and her ears ring. She has had tachycardia (better on propranolol but extremely fatigued). She continues to have brain fog and fatigue. 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 She wears knee high compression. She drinks 64 ounces of water a day and 10-12 oz of caffeine as needed. She has constipation (goes every three to four days). She salts her food. She exercises 30-45 minutes a day as tolerated (resistance training and yoga). She is short of breath all the time despite normal PFTs. She is lightheaded with exertion. She has seen speech therapy to help with her memory issues. She does report falling down the stairs while wearing a monitor but she has had allergic reactions to them. Loop recorder was discussed. PAST CARDIAC HISTORY: None PAST MEDICAL HISTORY Diagnosis Date Arnold-Chiari malformation (HCC) Central cord syndrome (HCC) COVID Depression Family history of seizure disorder Migraines Nephrolithiasis Ovarian cyst Post-COVID syndrome POTS (postural orthostatic tachycardia syndrome) Preeclampsia Sinus tachycardia Syncope PAST SURGICAL HISTORY Procedure Laterality Date REVISE MEDIAN N/CARPAL TUNNEL SURG VAGINAL HYSTERECTOMY for uncontrolled vaginal bleeding SOCIAL HISTORY Social History Tobacco Use Smoking status: Former Packs/day: 2.00 Years: 1.00 Additional pack years: 0.00 Total pack years: 2.00 Types: Cigarettes Quit date: 2011 Years since quittin.3 Smokeless tobacco: Never Substance Use Topics Alcohol use: Not Currently Drug use: Not Currently FAMILY HISTORY Problem Relation Age of Onset Genitourinary () Mother Alcohol/Drug Mother Diabetes Father Alcohol/Drug Father Autoimmune disease Father Stroke Father Breast Cancer Paternal Grandmother Alcohol/Drug Paternal Grandfather Seizures Brother ALLERGIES: ALLERGIES Allergen Reactions Adhesive Tape-Silic* Rash Bactrim [Sulfametho* Hives Sulfa (Sulfonamide * Hives Morphine Other: See Comments MEDICATIONS: fludrocortisone (FLORINEF) 0.1 mg tablet 1 tablet Orally BID for 30 days metroNIDAZOLE (FLAGYL) 500 mg tablet 1 tablet Orally Three times a day for 10 Ehqzz-4-MKD-EPA-Fish Oil (FISH OIL) 1,000 mg (120 mg-180 mg) cap omeprazole (PRILOSEC) 40 mg capsule 1 capsule 30 minutes before morning meal Orally Once a day for 90 days rimegepant (NURTEC ODT) 75 mg disintegrating tablet Oral for 30 Days propranolol ER (INDERAL LA) 60 mg 24 hr capsule Take 1 capsule by mouth once daily. methocarbamol (ROBAXIN) 500 mg tablet Take 1 tablet by mouth two times a day as needed. fludrocortisone oral liquid 0.1 mg/mL (CPD) Take 0.1 mg by mouth two times a day. estrogens conjugated (PREMARIN) 0.625 mg tablet Take 1 tablet by mouth every morning. REVIEW OF SYSTEMS: GENERAL: Positive for:Weight gain, Weakness, and Sleep difficulties HEENT: Positive for:Headache, Glasses, and Ringing in Ears NECK: Positive for: Pain and Stiffness RESPIRATORY: Positive for: Shortness of breath GASTROINTESTINAL: Positive for: Heartburn, Change in bowel habits, and Dark black stools MUSCULOSKELETAL: Negtive for: Muscle or joint pain, stiffness, Joint swelling NEUROLOGIC/PSYCHIATRIC: Positive for: Weakness, Paralysis, Tremor, Nervousness or anxiety, Memory loss SKIN: Negative for: Rash, Itching HEMATOLOGICAL/LYMPHATIC: Positive for: Easy bruising ENDOCRINE: Positive for: Excessive sweating and Frequent thirst [facility] Score Please estimate the frequency of the following symptoms: Never-0, Rare-1, Occasional-2, Frequent-3, Daily-4, Constant*-5 Symptoms Subtotal Syncope/Near Syncope Score 2 Dizziness/Lightheadedness Score 4 Exercise Intolerance Score 3 Headache Score 3 Sleep Problems Score 2 Total Frequency Score 15 *For syncope/near syncope multiple episodes daily Please estimate the severity of the following symptoms: None-0, Minimal-1, Mild-2, Moderate-3, Severe-4, Intolerable-5 Symptoms Subtotal Palpitations/Tachycardia Score 3 Fatigue Score 4 Brain Fog Score 5 Shortness of Breath Score 4 GI Symptoms Score* 5 Total Severity Score 21 *GI symptoms include nausea, bloating, diarrhea, constipation, poor appetite, abdominal pain, early satiety Total of Both Sections: 36 PHYSICAL EXAMINATION: BP w/Orthostatic Vitals Date and Time Orthostatic BP Orthostatic Pulse BP Pulse BP Position BP Site BP Cuff Size 08/17/23 1018 130/92 84 -- -- Standing -- -- 08/17/23 1017 119/83 75 -- -- Supine -- -- There were no vitals taken for this visit. General: Well appearing, in no acute distress. Skin: No clubbing, no cyanosis. Eyes: Extra ocular movements intact Neck: No jugular venous distention, no carotid bruits, carotids have a normal upstroke, no palpable thyromegaly. Lungs: Clear to auscultation bilaterally, no wheezing or rhonchi. Heart: Regular rhythm, PMI not displaced, S1, S2 normal, no S3, no S4, no heaves, no rub and no murmur. Abdomen: Soft, nontender, bowel sounds normal, no palpable organomegaly, no bruits. Extremities: No peripheral edema . Grade 2/4 distal pulses bilaterally. Neuro: Oriented to person, place and time, alert, cooperative, gait coordinated. CARDIOVASCULAR MEDICINE TESTING: Electrocardiogram: sinus 68 bpm I have personally reviewed the Electrocardiogram. IMPRESSION: 1. Tachycardia - ICD9: 785.0, ICD10: R00.0 (primary diagnosis) 2. Palpitations - ICD9: 785.1, ICD10: R00.2 3. Post-COVID syndrome - ICD9: 139.8, ICD10: U09.9 4. SOB (shortness of breath) - ICD9: 786.05, ICD10: R06.02 5. Other post infection and related fatigue syndromes - ICD9: 780.79, ICD10: G93.39 6. Brain fog - ICD9: 799.59, ICD10: R41.89 7. Atypical chest pain - ICD9: 786.59, ICD10: R07.89 PLAN AND RECOMMENDATIONS: We reviewed her tilt test and discussed that there was not a sustained tachycardia that would be indicative of POTS, I showed her the marked HR oscillations. We discussed post COVID syndrome and how this relates to her symptoms as well as our limited knowledge on best management. We reviewed her prior medications attempted and discussed from a cardiac perspective we have nothing to add in this regards. 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 We discussed that if she gives up activities that she is already tolerating she will be at risk for additional cardiac deconditioning and how this may worsen her quality of life and challenges to recover. She relates shortness of breath with light activity and with talking that is suggestive of dysfunctional breathing, I ordered a CPET to assess further. She had been to speech therapy for cognitive impairment but if dysfunctional breathing pattern on her CPET would refer to voice therapy. I recommend she look at the [facility] post COVID website as may provide her with additional current information on this disorder. Management of Fatigue and Postexertional Malaise (PEM) Management of chronic fatigue starts with avoiding post exertional malaise (PEM). Its important to establish an energy plan for the day. Consider your energy as a savings account and you have only that amount to use until your body restores itself. Recovery is often a limiting factor at how quickly and effectively, you are able to recover. You can only do activities that you are able to adequately recover from. When you over exert yourself or use energy that you do not have sufficient recovery from, this will result in post exertional malaise. Continued activities despite PEM will result in stacking and this can result in inability to recover or worsening of symptoms that can lead to further decline. Don't vary you activity levels too much based on a good day and a bad day, as you may not appreciate you have overdone it until the following day. Make recovery a priority. Good sleep habits are essential, if you feel you have a sleep disorder seek an evaluation with sleep medicine. Recovery goes beyond getting adequate sleep, as even brief breaks in activity or periods of rest can aid recovery and help avoid PEM. Use pacing techniques, break activities up in to components and try to accomplish one component at a time, space out activities to allow recovery between. Prioritize activities and place your energies on the most essential first. You may have to make some hard choices, you may have to say no to some activities that would be nice to accomplish but have less priority as the cumulative tasks exceed your energy levels. Use tools and technologies that make activities easier or less taxing. Ask for help or delegate when appropriate Be realistic about what your energy levels are and try not to do activities that the intensity or duration would exceed your energy levels or your ability to adequately recover for. Be mindful of what activities are essential and what are convenient. I recommend caution with progressive exercise programs. Some ME/CFS patients symptoms will worsen if undertaking a vigorous exercise program. Only take on activities that you feel are within your energy levels and periodically monitor your recovery. If you find yourself suffering from PEM, reflect on what activities preceded it (these are often from the prior day or days) and determine when possible what modifications can be made to avoid recurrence. Mental exertion can be as taxing as physical exertion, bear this in mind when developing your activity plan for the day. Consider activities like travel, extended activities or medical testing/procedures may exacerbate your symptoms and consider this in your plans. You may need to factor in rest periods and recovery days when necessary. Keep in mind that functional capacity is important and there is no medication or procedure that will restore lost functional capacity that does not involve increasing activity level. Once PEM is managed and you have a sense for what your daily energy levels are and how to pace your activities and how to manage your recovery, then you can try to gradually increase activities. Start slow, build gradually and monitor how you feel the following day. If you find yourself unable to recovery, back off. It is important to realize the less you do, the less you will be able to do., So inactivity will only worsen fatigue. There is balance between avoiding inactivity and overexertion and this is very individual and can fluctuate. If very debilitated, focusing on activities of daily life may take precedence over exercise. For instance if you feel excess fatigue, you may consider taking a brief, casual walk, sometimes getting up and moving will improve your energy level then you may be able to do some of your planned activities, you may still want to taper back for that day. Alternatively, if you are having a really good day with high energy, though its okay to do a little extra, avoid trying to make up for bad days by overdoing it. The concern is that you may not appreciate you are overdoing it until later, when PEM develops. Feeling a little tired and sore the day after doing an activity that you don't do on a regular basis is normal. The important thing is that you are able to function to your base activity level for your general health at that time and that the increased fatigue and soreness does not extend in to lasting several days. CONTACT INFORMATION: Irina Finley DO As a national referral center for Syncope and related conditions, seeing patients from across the country, we cannot provide work, FMLA, disability or other forms, or cardiac clearance. We will provide the office notes from the patient's most recent visit if they have not already been received, and other tests or evaluations performed here can be made available upon request. documented in this encounter [facility] 08-17-2023 Note HNO ID: [id number] Author: IRINA FINLEY DO Service: ? Author Type: Physician Type: Progress Notes Filed: 08/17/2023 13:01 Note Text: [facility] [place] [facility] Department of Cardiovascular Medicine SECTION OF CARDIAC PACING and ELECTROPHYSIOLOGY OUTPATIENT VISIT DATE August 17, 2023 OUTPATIENT VISIT TYPE CONSULTATION PRIMARY CARE PHYSICIAN: Siobhan Evangelista [address] [place] [address] REFERRING PHYSICIAN Rita Dougherty [address] [id number] CHIEF COMPLAINT: syncope HISTORY OF PRESENT ILLNESS: Cardiac consultation at the request of Dr. Rita Dougherty. A copy of this consultation note will be provided to the requesting physician by way of shared Medical record or letter to requesting physician via US mail. Ms. Heller is a 32 year old female who is seen today for an opinion regarding syncope. The notes indicate a prior diagnosis of POTS following COVID infection. Her tilt test here was not consistent with POTS however? She has seen neurology as well as Dr. Elena and Dr Dougherty from cardiology. She has been on propranolol, metoprolol, bisoprolol, ivabradine, midodrine and florinef. She had preeclampsia during , her BP normalized after starting propranolol She has not had syncope for about a year but continues to have near syncope. She has been having headaches, mild episodic chest pain, she had been having trouble focusing and with memory. Has fatiomar. She had COVID early 2020 and a second bout early 2021. She relates shortness of breath all the time, is aggravated with talking for several minutes, she has to stop at the top of a flight of stairs to adjust. . Echo 02/10/23 CONCLUSIONS: - Exam indication: POTS - The left ventricle is normal in size. Left ventricular systolic function is normal. EF = 63 ? 5% (2D biplane) Normal left ventricular diastolic function. - The right ventricle is normal in size. Right ventricular systolic function is normal. - There are no significant valvular abnormalities. - Estimated right ventricular systolic pressure is likely underestimated due to a weak or incomplete tricuspid regurgitation signal and is, at least, 12 mmHg consistent with normal pulmonary artery pressures. Estimated right atrial pressure is 3 mmHg based on IVC assessment. - Exam was compared with the prior echocardiographic exam performed on 01/23/2022 ([place]). There is no significant change. OS event monitor 11/02/22 Narrative Patient was monitored between October 16, 2022 through October 29, 2022. There were a total of 4 transmissions, all transmissions demonstrated sinus tachycardia with rates up to 140 beats per minute. No significant atrial or ventricular ectopy noted Tilt 03/06/22 - Overall: A postural increase in heart rate was seen that was borderline for accentuated postural tachycardia. NOTE: there was not a sustained HR >30 bpm in the first ten minutes this study is not diagnostic of POTS OSH Monitor 11/17/2021 The patient was monitored between November 17 and December 22, 2021. Recordings were made for symptoms of ?heart racing?, short of breath?, ?dizzy? and ?lightheaded?. Sinus rhythm and sinus tachycardia were noted throughout the study. There were no arrhythmias and no supraventricular or ventricular ectopy was noted. Nursing Intake: Ms. Heller is a 32 year old female who is seen today for syncope. She had COVID in April of 2020. She reportedly was diagnosed with POTS after a covid infection though her tilt table test largely ruled this out. She has been on multiple medications including beta blockers (metoprolol, bisoprolol, propranolol), midodrine, florinef, and ivabradine. She follows with neurology and was doing well on florinef and propranolol at the time of her last visit in May. Her first syncopal episode was in 2020. They occurred every 2-3 weeks. She had a prodrome of flushing, hazy vision and loss, and ringing in the ears. She reports she would have two to three episodes when this would happen. She would pass out, fall to the floor, come to and a few minutes later, despite still being seated, she would lose consciousness again. She believe she was out less than a minute. These seemed to be episodic. She would have them for a few days and then be fine for a few weeks. She presents to discuss the syncopal episodes she was having. Over the past year she has only had near syncopal episodes 2-3 times a month but has learned to recognize her triggers. These often happen after exertion. Her heart starts to race and she feels like her chest is going to explode and her ears ring. She has had tachycardia (better on propranolol but extremely fatigued). She continues to have brain fog and fatigue. 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 She wears knee high compression. She drinks 64 ounces of water a day a (more content not included)... [facility] 07-02-2023 Miscellaneous Notes Physician: Killian Call from patient requesting refill. Please E-Scribe Last office visit 05/03/23 with Killian virtual Next office visit N/A Patient Comment: Rebecca, I hate to be a bother, but insurance contacted me and they will not fill unless it is for 90 days. Requested Prescriptions Pending Prescriptions Disp Refills propranolol ER (INDERAL LA) 60 mg 24 hr capsule 30 capsule 2 Sig: Take 1 capsule by mouth once daily. [facility] Name: [facility] documented in this encounter [facility] 06-29-2023 Miscellaneous Notes Physician: Killian Call from patient requesting refill. Please E-Scribe Last office visit 05/03/23 with Killian virtual Next office visit N/A Requested Prescriptions Pending Prescriptions Disp Refills propranolol ER (INDERAL LA) 60 mg 24 hr capsule 30 capsule 2 Sig: Take 1 capsule by mouth once daily. [facility]acy Name: [facility] documented in this encounter [facility] 06-07-2023 Note HNO ID: [id number] Author: BROCK WANG PA-C Service: ? Author Type: Physician Cereal Maker Type: Progress Notes Filed: 06/07/2023 11:34 Note Text: [facility] Follow-Up VIRTUAL VISIT This is a virtual visit using [employer] Zoom Video Visit. It required patient-provider interaction for the medical decision making as documented below. I have communicated my name and active licensure. The patient's identity and physical location were verified at the time of this visit. Either the patient or their legal business services representative has been informed of the risks and benefits of -- and alternatives to -- treatment through a remote evaluation and consents to proceed with the evaluation remotely. 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 Last Visit by myself 04/20/2023: Pastor Heller is a 32 year old here today for follow-up evaluation. Pastor Heller has a past medical history of Chiari malformation, migraines, depression, ovarian cyst, nephrolithiasis. Patient presents today for follow-up regarding POTS and headaches. Notes that last appointment with PCP she was initiated on Florinef due to post-COVID symptoms. Since initiating Florinef 0.1 twice daily has noticed worsening headaches. Headaches occurring daily usually located in occipital, temporal, frontal area. Usually throbbing or stabbing with associated photo phobia, phonophobia, and nausea. Headaches lasting between 2 to 4 hours. Patient has been using Tylenol and Motrin for migraine abortive therapy. No positional symptoms, headaches are not related to cough/sneeze, and denies tinnitus. Also concerned for worsening POTS symptoms noticing exercise intolerance and tachycardia. Neurological examination obtained in office unremarkable. Orthostatic vital signs obtained in office show resting heart rate around 99 bpm with an increase in standing 30 bpm. Plan to refer to headache clinic. Patient was referred in the past for evaluation of headaches but did not make this appointment. Due to daily headaches and presence of Chiari malformation feel that headache provider is appropriate. Due to worsening POTS symptoms in relation to Florinef, will decrease Florinef from 0.1 tablets twice daily to 0.1 tablets once daily. Also considered adding propranolol, however unable to take propranolol due to interaction with Zanaflex. Discussed with patient, following 1 week of decreased dose of Florinef patient agrees to send orthostatic vitals. May consider alternate blood pressure medicine at this time. Patient is also set up with cardiology syncope clinic for further management of POTS in August 2023. Patient is aware and agrees to plan. Patient agrees to notify for any new or worsening symptoms. Plan to follow-up with either Ortega Natarajan APRN., CNP. or myself following appointment with cardiology syncope clinic. Today June 06, 2023 : Feels that blood pressure and heart rate control have been very good. Noticing she is not getting as many heart rate spikes. Limiting caffeine consumption. Stopped Focalin last week who recommended patient stop taking Focalin. She feels that it was helping her cognitively. She feels that now it is stopped she feels like her cognitive functioning is worsening. Feels she is having trouble with word finding, memory retention, focusing. Still experiencing around 2 headaches per week. Was able to see headache clinic who stopped muscle relaxer and initiated propranolol. No correlation with cognitive difficulties and headaches. Is currently seeing speech therap Current management of orthostatic condition Diet: 2-3 meals per day Exercise: 1 hour of yoga per week, 30-45 minutes of strength per morning Water: 3-4 12 oz bottles of water per day Salt: adding salt to food and liquid iv Stockings: yes Reveiwed of work up to date: MRI Brain 06/22/2022: No acute intracranial findings. MRV Brain06/22/2022: 1. No evidence for dural venous sinus thrombosis. 2. 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 This is nonspecific and may represent Chiari I malformation. Clinical correlation is recommended. Labs Vit E, ceruloplasmin WNL EPS Tilt 03/06/2022 * FINAL IMPRESSIONS * - The test was completed per protocol at 45 minutes of 70 degree tilt. - Systolic blood pressures: 107 mmHg at start to 125 mmHg at end of tilt. - Diastolic blood pressures: 72 mmHg at start to 71 mmHg at end of tilt. - Blood pressure upon return to supine position was 128/79 mmHg. - Heart rates: 87 bpm at start to 95 bpm at end of tilt. - Heart rate upon return to supine position was 83 bpm. - Patient signs/symptoms included: BLURRY VISION, DIZZINESS, HEADACHE, HOT, LIGHTHEADED, PALPITATIONS, SEE NOTE, TINGLING. - Overall: A postural increase in heart rate was seen that was borderline for accentuated postural tachycardia. (more content not included)... [facility] 06-03-2023 History of Presen t illness Narrative Images from the original note were not included. [facility] [place] [facility] Department of Cardiovascular Medicine SECTION OF PREVENTIVE CARDIOLOGY Date: 06/03/2023 Patient: Pastor Heller : 1990 CHIEF COMPLAINT: New patient visit HISTORY OF PRESENT CARDIOVASCULAR ILLNESS: I had the pleasure of seeing Pastor Heller today in the Preventive Cardiology Clinic for a cardiac evaluation. She comes self-referred today. She is a 32 year old female patient with a past medical history of POTS, hypercholesterolemia, migraine, Arnold-Chiari malformation, depression, history of COVID-19 infection. She states that she has been diagnosed with POTS after COVID-19 infection and had been treated by Dr. Mcdonald of [facility] for POTS. She was on different regimens of beta-blockade including midodrine, fludrocortisone, metoprolol, bisoprolol, ivabradine. She she is established with our colleagues from Neurology, who had been managing most of her POTS care. Was also evaluated by Dr. Dougherty and referred to our syncope clinic. Subjectively, she states that she had sudden episodes of loss of consciousness, to an extent that 1 time she had paralysis. She was is completely evaluated by neurology and this evaluation has been unrevealing. Her tilt table evaluation in 2021 had been diagnostic of POTS, but she had been doing overall well since then. She is currently treated with propranolol 60 mg daily, fludrocortisone 0.1 mg daily. She states since she has been started on the propranolol, she feels much better, her orthostatic symptoms and blood pressures at home have much improved. With respect to cardiovascular risk, she had a lipid panel done in July 2022, which revealed a total cholesterol of 163 mg/dL. PAST MEDICAL HISTORY: PAST MEDICAL HISTORY Diagnosis Date Arnold-Chiari malformation (HCC) COVID Depression Family history of seizure disorder Migraines Nephrolithiasis Ovarian cyst POTS (postural orthostatic tachycardia syndrome) Preeclampsia Syncope PAST SURGICAL HISTORY: PAST SURGICAL HISTORY Procedure Laterality Date REVISE MEDIAN N/CARPAL TUNNEL SURG VAGINAL HYSTERECTOMY for uncontrolled vaginal bleeding FAMILY HISTORY FAMILY HISTORY Problem Relation Age of Onset Genitourinary () Mother Alcohol/Drug Mother Diabetes Father Alcohol/Drug Father Autoimmune disease Father Stroke Father Breast Cancer Paternal Grandmother Alcohol/Drug Paternal Grandfather Seizures Brother SOCIAL HISTORY Employer And Job Title: None on file Years Of Education Completed: Not specified Marital Status: Alcohol Use: Yes (socially) CURRENT MEDS: Current Outpatient Medications Medication Sig rizatriptan (MAXALT) 5 mg tablet Take 1 tablet (5 mg) by mouth as needed. May repeat dose after 2 hours if needed. Maximum daily dose is 15 mg per day. propranolol ER (INDERAL LA) 60 mg 24 hr capsule Take 1 capsule by mouth once daily. methocarbamol (ROBAXIN) 500 mg tablet Take 1 tablet by mouth two times a day as needed. fludrocortisone oral liquid 0.1 mg/mL (CPD) Take 0.1 mg by mouth two times a day. Zinc Acetate, Oral, 50 mg (zinc) cap Take 50 capsules by mouth once daily. Cetirizine (ZYRTEC) 10 mg cap Take 10 mg by mouth once daily. estrogens conjugated (PREMARIN) 0.625 mg tablet Take 1 tablet by mouth every morning. No current facility-administered medications for this visit. ALLERGIES: ALLERGIES Allergen Reactions Adhesive Tape-Silic* Rash Bactrim [Sulfametho* Hives Sulfa (Sulfonamide * Hives Morphine Other: See Comments REVIEW OF SYSTEMS: CONSTITUTIONAL: No weight loss, malaise or fevers. HEENT: Negative for frequent or significant headaches, No changes in hearing or vision, no nose bleeds or other nasal problems. RESPIRATORY: Negative for cough, wheezing, or shortness of breath CARDIOVASCULAR: Negative for chest pain, leg swelling or palpitations GI: Negative for abdominal discomfort, blood in stools or black stools or change in bowel habits. : No history of dysuria, frequency, or incontinence and No difficulty urination, nocturia >1 times per night or hematuria. MUSCULOSKELETAL: Negative for joint pain or swelling, back pain or muscle pain. ENDOCRINE: Negative for cold or heat intolerance, polyuria, polydipsia and goiter HEMATOLOGIC/LYMPHATIC: Negative for prolonged bleeding, bruising easily or swollen nodes. NEUROLOGIC: No history or headaches, syncope, paralysis, seizures or tremors. INTEGUMENTARY: Negative for lesions, rash, and itching. PHYSICAL EXAMINATION: BP 115/67 (BP Site: Right Arm, BP Position: Sitting, BP Cuff Size: Regular Adult) Pulse 67 Ht 149.9 cm (4' 11 ) Wt 53.7 kg (118 lb 6.4 oz) BMI 23.91 kg/m GENERAL: Well nourished, non-obese, well-appearing, in no acute distress. SKIN: No rashes, no clubbing, no cyanosis. EYES: Extra ocular movements intact. OROPHARYNX: Ears normal, pharynx not examined. NECK: Non-tender, no lymphadenopathy, thyroid with normal size, no nodules appreciate, no jugular venous distention, no carotid bruits, carotids have a normal upstroke. LUNGS: Clear to auscultation bilaterally, no wheezing or rhonchi. HEART: Regular rhythm, S1, S2 normal, no S3, no S4, no heaves, no rub and no murmur. ABDOMEN: Soft, nontender, bowel sounds normal, no palpable organomegaly, no bruits. EXTREMITIES: No peripheral edema. Regular distal pulses bilaterally. NEURO: Non-focal, movement intact PSYCHIATRY: Oriented to person, place and time, alert, cooperative. CLINICAL TESTING RESULTS: I have personally reviewed the following: LABS: Glucose (mg/dL) Date Value 04/20/2023 124 (H) BUN (mg/dL) Date Value 04/20/2023 10 Creatinine (mg/dL) Date Value 04/20/2023 0.67 Sodium (mmol/L) Date Value 04/20/2023 142 Potassium (mmol/L) Date Value 04/20/2023 3.5 (L) Chloride (mmol/L) Date Value 04/20/2023 103 CO2 (mmol/L) Date Value 04/20/2023 24 Protein, Total (g/dL) Date Value 04/20/2023 7.3 Albumin (g/dL) Date Value 04/20/2023 4.8 Calcium, Total (mg/dL) Date Value 04/20/2023 9.7 Alkaline Phosphatase (U/L) Date Value 04/20/2023 64 Bilirubin, Total (mg/dL) Date Value 04/20/2023 0.3 AST (U/L) Date Value 04/20/2023 21 ALT (U/L) Date Value 04/20/2023 15 WBC (k/uL) Date Value 04/20/2023 7.79 RBC (m/uL) Date Value 04/20/2023 4.18 Hemoglobin (g/dL) Date Value 04/20/2023 12.6 Hematocrit (%) Date Value 04/20/2023 40.1 MCV (fL) Date Value 04/20/2023 95.9 MCH (pg) Date Value 04/20/2023 30.1 MCHC (g/dL) Date Value 04/20/2023 31.4 RDW-CV (%) Date Value 04/20/2023 12.3 Platelet Count (k/uL) Date Value 04/20/2023 258 MPV (fL) Date Value 04/20/2023 12.9 (H) No results found for: INR No results found for: CHOL , HDL , LDL , TG TSH Date Value Ref Range Status 02/10/2023 0.889 0.270 - 4.200 mIU/L Final Comment: If the patient is , TSH reference range varies by gestational period: First Trimester (weeks 9-12): 0.180-2.990 mIU/L Second Trimester: 0.110-3.980 mIU/L Third Trimester: 0.480-4.710 mIU/L Pilo Duggan et al. A Practical Approach for the Verifications and Determination of Site- and Trimester-Specific Reference Intervals for Thyroid Function tests in . Thyroid, 2019:29:3:412-420. Kb Huynh, et al. 2017 Guidelines of the [place] Thy[employer] Association for the Diagnosis and Management of Thyroid Disease during and the . Thyroid, 2017:27:3:315-389. No results found for: HBA1C PATIENT ENTERED QUESTIONNAIRE SCORES PHQ-9 05/03/2023 PHQ-2 Score 0 PHQ-9 Score 7 ESTHELA - 2/7 SCORES 05/03/2023 04/20/2023 03/16/2023 ESTHELA-2 Score 0 0 0 ESTHELA-7 Score - 0 - PROMIS Global Health - (T-Scores - the mean of general population = 50. Five points is a clinically meaningful difference.) 04/20/2023 02/03/2023 03/25/2022 Physical T-Score 39.8 39.8 42.3 Mental T-Score 53.3 50.8 48.3 ASSESSMENT AND PLAN: In addition to the above history and physical exam, the results of prior labs and testing, were reviewed. The following plans and goals have been established to address current medical problems and optimize control of cardiovascular risk factors to reduce the risk of future heart disease: 1. POTS: I have recommended her to follow-up with neurology. We discussed that I would consider to lower her fludrocortisone dose and continue propranolol. We discussed the importance of exercise and daily activities. I have also suggested to consider an exercise prescription visit with our colleagues. Her symptoms and blood pressure seems to be reasonably well-controlled at this time. FOLLOW UP: I have discussed with Pastor Heller that I recommend a follow-up visit with me as needed. James Noble MD, PhD Section of Preventive Cardiology [facility] Department of Cardiovascular Medicine [facility] [place] [address] Office Appointments: [phone] Voice recognition software was used in the creation of this document. There may be unintended errors in spelling, grammar, syntax or punctuation present. documented in this encounter [facility] 06-03-2023 Note HNO ID: [id number] Author: JAMES NOBLE MD Service: ? Author Type: Physician Type: Progress Notes Filed: 06/03/2023 08:24 Note Text: [facility] [place] [facility] Department of Cardiovascular Medicine SECTION OF PREVENTIVE CARDIOLOGY Date: 06/03/2023 Patient: Pastor Heller : 1990 CHIEF COMPLAINT: New patient visit HISTORY OF PRESENT CARDIOVASCULAR ILLNESS: I had the pleasure of seeing Pastor Heller today in the Preventive Cardiology Clinic for a cardiac evaluation. She comes self-referred today. She is a 32 year old female patient with a past medical history of POTS, hypercholesterolemia, migraine, Arnold-Chiari malformation, depression, history of COVID-19 infection. She states that she has been diagnosed with POTS after COVID-19 infection and had been treated by Dr. Mcdonald of [facility] for POTS. She was on different regimens of beta-blockade including midodrine, fludrocortisone, metoprolol, bisoprolol, ivabradine. She she is established with our colleagues from Neurology, who had been managing most of her POTS care. Was also evaluated by Dr. Dougherty and referred to our syncope clinic. Subjectively, she states that she had sudden episodes of loss of consciousness, to an extent that 1 time she had paralysis. She was is completely evaluated by neurology and this evaluation has been unrevealing. Her tilt table evaluation in 2021 had been diagnostic of POTS, but she had been doing overall well since then. She is currently treated with propranolol 60 mg daily, fludrocortisone 0.1 mg daily. She states since she has been started on the propranolol, she feels much better, her orthostatic symptoms and blood pressures at home have much improved. With respect to cardiovascular risk, she had a lipid panel done in July 2022, which revealed a total cholesterol of 163 mg/dL. PAST MEDICAL HISTORY: PAST MEDICAL HISTORY Diagnosis Date Arnold-Chiari malformation (HCC) COVID Depression Family history of seizure disorder Migraines Nephrolithiasis Ovarian cyst POTS (postural orthostatic tachycardia syndrome) Preeclampsia Syncope PAST SURGICAL HISTORY: PAST SURGICAL HISTORY Procedure Laterality Date REVISE MEDIAN N/CARPAL TUNNEL SURG VAGINAL HYSTERECTOMY for uncontrolled vaginal bleeding FAMILY HISTORY FAMILY HISTORY Problem Relation Age of Onset Genitourinary () Mother Alcohol/Drug Mother Diabetes Father Alcohol/Drug Father Autoimmune disease Father Stroke Father Breast Cancer Paternal Grandmother Alcohol/Drug Paternal Grandfather Seizures Brother SOCIAL HISTORY Employer And Job Title: None on file Years Of Education Completed: Not specified Marital Status: Alcohol Use: Yes (socially) CURRENT MEDS: Current Outpatient Medications Medication Sig rizatriptan (MAXALT) 5 mg tablet Take 1 tablet (5 mg) by mouth as needed. May repeat dose after 2 hours if needed. Maximum daily dose is 15 mg per day. propranolol ER (INDERAL LA) 60 mg 24 hr capsule Take 1 capsule by mouth once daily. methocarbamol (ROBAXIN) 500 mg tablet Take 1 tablet by mouth two times a day as needed. fludrocortisone oral liquid 0.1 mg/mL (CPD) Take 0.1 mg by mouth two times a day. Zinc Acetate, Oral, 50 mg (zinc) cap Take 50 capsules by mouth once daily. Cetirizine (ZYRTEC) 10 mg cap Take 10 mg by mouth once daily. estrogens conjugated (PREMARIN) 0.625 mg tablet Take 1 tablet by mouth every morning. No current facility-administered medications for this visit. ALLERGIES: ALLERGIES Allergen Reactions Adhesive Tape-Silic* Rash Bactrim [Sulfametho* Hives Sulfa (Sulfonamide * Hives Morphine Other: See Comments REVIEW OF SYSTEMS: CONSTITUTIONAL: No weight loss, malaise or fevers. HEENT: Negative for frequent or significant headaches, No changes in hearing or vision, no nose bleeds or other nasal problems. RESPIRATORY: Negative for cough, wheezing, or shortness of breath CARDIOVASCULAR: Negative for chest pain, leg swelling or palpitations GI: Negative for abdominal discomfort, blood in stools or black stools or change in bowel habits. : No history of dysuria, frequency, or incontinence and No difficulty urination, nocturia >1 times per night or hematuria. MUSCULOSKELETAL: Negative for joint pain or swelling, back pain or muscle pain. ENDOCRINE: Negative for cold or heat intolerance, polyuria, polydipsia and goiter HEMATOLOGIC/LYMPHATIC: Negative for prolonged bleeding, bruising easily or swollen nodes. NEUROLOGIC: No history or headaches, syncope, paralysis, seizures or tremors. INTEGUMENTARY: Negative for lesions, rash, and itching. PHYSICAL EXAMINATION: BP 115/67 (BP Site: Right Arm, BP Position: Sitting, BP Cuff Size: Regular Adult) Pulse 67 Ht 149.9 cm (4' 11 ) Wt 53.7 kg (118 lb 6.4 oz) BMI 23.91 kg/m? GENERAL: Well nourished, non-obese, well-appearing, in no (more content not included)... [facility] 05-03-2023 Note HNO ID: [id number] Author: JHOANA DAILY MD Service: ? Author Type: Physician Type: Progress Notes Filed: 05/05/2023 16:04 Note Text: VIRTUAL VISIT [facility] I have communicated my name and active licensure. The patient's identity and physical location were verified at the time of this visit. Either the patient or their legal business services representative has been informed of the risks and benefits of -- and alternatives to -- treatment through a remote evaluation and consents to proceed with the evaluation remotely. Ortega Christina Natarajan [address] [id number] PCP: Siobhan Evangelista MD CC: Headaches HPI: Pastor Heller is a 32 year old year old female with a significant past medical history of POTS (on Ivabridine), Chiari malformation, depression, ovarian cyst, nephrolithiasis who presents for further evaluation regarding headaches. Previous records (physician notes, laboratory reports, and radiology reports) and imaging studies were reviewed and summarized. Headache 1 Onset: - Childhood/teenage years Location: holcephalic and occipital Quality/Description: throbbing Associated Symptoms: Photophobia: yes Phonophobia: yes Nausea: yes Vomiting: no Worse with activity: yes Number of migraine headache days/month: 16 Number of NON-migraine headache days/month: 30 Total Number of headache days/month: 46 Number of headache free days/month: 0 Current abortive treatment: Excedrin (daily), Nurtec 75 mg Triggers: none Aura: fortification spectra, scotoma and sunspots Lifestyle: Sleep: Takes Tizanidine PRN to help with sleep Diet: 4 cups of caffeine/day Lifestyle factors: Stress: 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, 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 Substance abuse: no smoking, alcohol, drug use Prior Therapies Duration of Use Dose Side effect Analgesic Butalbital/acetaminophen/caffein e (Fioricet) Anti-Convulsant Gabapentin (Neurontin) 300 mg TID Aggressive side-effects GEPANTS Rimegepant (Nurtec) Supplements Magnesium Current Medications: Gabapentin 300 mg TID (made her aggressive) Allergies: ALLERGIES Allergen Reactions Adhesive Tape-Silic* Rash Bactrim [Sulfametho* Hives Sulfa (Sulfonamide * Hives Morphine Other: See Comments Previous testing: Imaging available to review: Reports available to review: MRI brain + C-spine - shows Chiari 1 malformation but otherwise unremarkable; minimal Records reviewed: yes Family History: FAMILY HISTORY Problem Relation Age of Onset Genitourinary () Mother Alcohol/Drug Mother Diabetes Father Alcohol/Drug Father Autoimmune disease Father Stroke Father Breast Cancer Paternal Grandmother Alcohol/Drug Paternal Grandfather Seizures Brother Migraine or other headaches in the family: No Aneurysms in a first degree relative: No Brain tumors in the family: No Other neurological illness in the family: Yes - brother has a seizure disorder Headache Risk Factors and/or co-morbidities: Neck Pain: + Back Pain: + History of significant Motor Vehicle Accident: - Fibromyalgia: - Obesity: - History of Traumatic Brain Injury and/or Concussion: - History of Syncope: - Past Medical History: PAST MEDICAL HISTORY Diagnosis Date Arnold-Chiari malformation (HCC) COVID Depression Family history of seizure disorder Migraines Nephrolithiasis Ovarian cyst POTS (postural orthostatic tachycardia syndrome) Preeclampsia Syncope Past Medical History Pertinent Negatives: 03/25/2022: Brain tumor (HCC) 03/25/2022: Cancer (HCC) 03/25/2022: Chronic renal insufficiency 03/25/2022: PATIENT SERVICES REP infection 03/25/2022: Coronary artery disease 03/25/2022: Developmental delay 03/25/2022: Diabetes (HCC) 03/25/2022: Febrile seizure (HCC) 03/25/2022: disorder 03/25/2022: Stroke ([facility]) 03/25/2022: Traumatic brain injury (HCC) Past Surgical History PAST SURGICAL HISTORY Procedure Laterality Date REVISE MEDIAN N/CARPAL TUNNEL SURG VAGINAL HYSTERECTOMY for uncontrolled vaginal bleeding Social History: Social History Tobacco Use Smoking status: Former Packs/day: 2.00 Years: 1.00 Additional pack years: 0.00 Total pack years: 2.00 Types: Cigarettes Quit date: 2011 Years since quittin.0 Smokeless tobacco: Never Substance Use Topics Alcohol use: Yes Comment: socially Drug use: Not Currently REVIEW OF SYSTEMS: General: No fevers, sweats, chills, nightsweats, change in appetite, change in weight, change in energy. HEENT: no changes in hearing or vision, no nose bleeds or other nasal problems CV: No limb swelling, palpitations, HTN, CHF, CAD, chest pain. Pulmonary: negative for cough, wheezing and shortness of breath GI: No abdominal pain, diarrhea, constipation, heartburn, bloody stool, nausea, or vomiting. Musculoskeletal: negative for back pain, mus (more content not included)... [facility] 04-20-2023 Note HNO ID: [id number] Author: BROCK WANG PA-C Service: ? Author Type: Physician Cereal Maker Type: Progress Notes Filed: 04/20/2023 15:15 Note Text: [facility] Follow Up Pastor Heller is a 32 year old female. Last office visit Ortega Natarajan 05/29/2022: ASSESSMENT Pastor Heller is a 31 year old here today for follow up. Relevant history of chiari malformation, migraines, depression, ovarian cyst, nephrolithiasis. Seen initially in February, after hospital admission for TLOC and paralysis. At that time she had onoging hand weakness, right sided weakness on exam, large and small fiber findings, as well as +Tuning fork sign. EMG was within normal limits. Referral was placed to Dr. Jo. Primary complaint was episodes of TLOC that can occur seated or standing, lasting up to 20 minutes. She was seen by epilepsy with plan for EMU admission. She had EPS tilt in 02/2022, confirming POTS diagnosis. Currently on ivabradine 5 mg BID. In the interim, POTS symptoms are well managed on ivabradine. She has only 2 syncopal episodes in the interim, and she endorses high stress levels around that time. She complains today of positional headache, waking up in the AM with a headache which sometimes dissipates throughout the day. She has headache onset with valsalva, cough / sneeze. There is concern for IIH given her Chiari, and as symptoms are new since most recent MRI, we need to obtain updated scans. She is not well controlled on gabapentin, will trial Diamox and referral to headache clinic. PLAN 1) Labs 2) Eye doctor for papilledema exam - send me the notes from your eye doctor 3) MRI / MRV brain 4) SMA 5) Diamox: -250 mg 2 x daily for 2 weeks -500 mg 2 x daily 6) Taper off gabapentin: -100 mg 2 x daily for 1 week -Then 100 mg daily for 1 week -Then 100 mg every other day for 3 days, then STOP 7) Consult to headache clinic 8) Let me know when you complete EMU admission Return 3-6 months. Today April 19, 2023: Patient presents today for follow up evaluation regarding POTS and headaches. Was referred to headache clinic at last appointment however was not able to get this set up. Was not able to complete EMU. Was unable to try diamox. Headaches occurring daily. Occipital/neck to frontal, R >L 1-4 hours Photophobia Phonophobia Nausea Vomiting Throbbing and stabbing Worsening for the last month Non positional, no initiation with cough/sneeze Was recently initiated on fludrocortisone by PCP due to post covid syndrome. Since then noticing no improvement in POTS symptoms. Worsening headaches since initiation of this medication. POTS seems well controlled, still experiencing heart racing Was able to see ophthalmology - normal exam per patient. Current management of orthostatic condition Diet: 3 meals per day Exercise: 30 mins in morning and then active throughout the day Water: 64 oz per day Salt: yes Stockings: no Current Medications for orthostatic condition Fludrocortisone Prior Medications for orthostatic condition Midodrine Propranolol Corlanor Reveiwed of work up to date: MRI Brain 06/22/2022: No acute intracranial findings. MRV Brain06/22/2022: 1. No evidence for dural venous sinus thrombosis. 2. 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 This is nonspecific and may represent Chiari I malformation. Clinical correlation is recommended. Labs Vit E, ceruloplasmin WNL EPS Tilt 03/06/2022 * FINAL IMPRESSIONS * - The test was completed per protocol at 45 minutes of 70 degree tilt. - Systolic blood pressures: 107 mmHg at start to 125 mmHg at end of tilt. - Diastolic blood pressures: 72 mmHg at start to 71 mmHg at end of tilt. - Blood pressure upon return to supine position was 128/79 mmHg. - Heart rates: 87 bpm at start to 95 bpm at end of tilt. - Heart rate upon return to supine position was 83 bpm. - Patient signs/symptoms included: BLURRY VISION, DIZZINESS, HEADACHE, HOT, LIGHTHEADED, PALPITATIONS, SEE NOTE, TINGLING. - Overall: A postural increase in heart rate was seen that was borderline for accentuated postural tachycardia. EMG 03/25/2022 Study Interpretation Electrodiagnostic examination of the right upper limb reveals: 1. No definite evidence of a right ulnar neuropathy. 2. No definite evidence of a right cervical (including C5-T1) motor radiculopathy. 3. Screening studies for median mononeuropathy did not reveal any definite abnormalities. 4. There is a right cate grabiel anastomosis present which is a normal anatomical variant. EEG Long 03/19/2022 Impression: This EEG is within normal limits. No epileptiform discharges or EEG seizures were seen during this recording. CT Cervical WO 01/23/2022 IMPRESSION: 1. The degree of shift of the C1 lateral masses over the C2 lateral masses with rotation to either side within the s (more content not included)... [facility] 03-29-2023 Note HNO ID: [id number] Author: Sharlene Kohli LMT Service: ? Author Type: Therapist Type: Progress Notes Filed: 03/29/2023 10:46 AM Note Text: Shoulder to mastoid and star pattern triggerbands, supraclavicular and suprascapular HTPs and CDs (right sided only) Myofascial release to right-sided trapezius, levator scapulae, supraclavicular fossa, rhomboids, supraspinatus, infraspinatus Neck and Scapula CARs sent via [employer] [facility] 02-26-2023 Note HNO ID: [id number] Author: Kimberly Woods RRT Service: ? Author Type: Registered Resp Therapist Type: Procedures Filed: 02/26/2023 3:48 PM Note Text: RESPIRATORY THERAPY SIX MINUTE WALK TEST OXIMETRY REPORT Six Minute Walk Test for This Encounter Oxygen Device Liters FIO2 SpO2% HR Activity Feet Speed (MPH) Flag R/A 100 79 Resting R/A 99 124 Six Minute Walk 1700 3.2 R/A 100 105 Recovery 1 minute post R/A 100 98 Recovery 2 minute post R/A 99 95 Recovery 3 minute post General Information Height Weight Smoking Status Pulse Oximetry Site Oximeter Pre Blood Pressure Post Blood Pressure Total Time Spent (min) 152.4 cm (5') 54.6 kg (120 lb 7.7 oz) -- Forehead Masimo 118/81 151/78 30 _ Distance Walked (meters) Distance Walked (feet) Female Predicted Walk Distance (feet) Female Lower Limit of Normal (feet) Female % Predicted Total Duration Of The Stops (seconds) 518.16 1700 2226.05 1770.05 76.4 -- _ Lowest SpO2 During 6 Minute Walk Pre-Yojana Dyspnea Rating Pre-Yojana Fatigue Rating Post Yojana Dyspnea Rating Post Yojana Fatigue Rating O2 Supply Carrier Walking Assistance/Device 97 % 2 4 5 8 -- None Six Minute Walk Trend (Previous Encounters) None SIGNATURE: Kimberly Woods RRT PATIENT NAME: Pastor Heller DATE: February 26, 2023 TIME: 10:05 AM The patient completed the six minute walk test with No stops. . The patient required Room Air to complete the test. The distance the patient walked in six minutes is mildly reduced. This is the first time patient takes the six minute walk test. The patient perceived their dyspnea during the six minute walk test to be 5-Severe on the modified Yojana scale. The patient perceived their fatigue during the six minute walk test to be 8 - on the modified Yojana scale. I have reviewed the findings and made appropriate revisions as needed. SIGNATURE: Russell Treadwell MD PATIENT NAME: Pastor Heller DATE: February 26, 2023 TIME: 3:48 PM [facility] 02-26-2023 Note HNO ID: [id number] Author: Kimberly Woods RRT Service: ? Author Type: Registered Resp Therapist Type: Progress Notes Filed: 02/26/2023 9:30 AM Note Text: PULM FUNCTION SMARTBLOCK: Provider: Eitan Mccauley APRN.CNP Spirometry w/BD: 1 DLCO: 1 LV - Box: 1 6 MW: 1 [facility] 02-26-2023 History of Presen t illness Narrative PULM FUNCTION SMARTBLOCK: Provider: Eitan Mccauley APRN.CNP Spirometry w/BD: 1 DLCO: 1 LV - Box: 1 6 MW: 1 documented in this encounter [facility] 02-26-2023 Instructions Eitan Mccauley APRN.CNP - 02/26/2023 8:05 AM EST Welcome to [facility]! The 'COV' represents SARS-CoV-2, also known as COVID-19. Our clinic's mission is to assess and guide individuals who are experiencing long-term effects of COVID-19 to care paths tailored to fit each person. We are a referral service. As a referral center for post-COVID related conditions, we cannot provide work, FMLA, disability or other forms, or surgical clearance. You will have an initial visit as well as one follow-up virtual visit in which all [facility] testing, imaging, and labs will be discussed. From there on it is expected that you continue to follow up with your PCP and the specialists established through this program. You will be sent questionnaires every 3 months for 1 year to monitor your progress. Once a questionnaire is completed, a member of our team may reach out to you to review. You just had your initial visit with the [facility] clinic! Next, you will be undergoing additional tests to further assess your current symptoms. Once you have these tests completed, you will have another visit to review these results. We will then direct you down the appropriate care path with a specialist for further treatment based on those results and your current symptoms. You may have your labs here today, or at any [facility], as a walk-in appointment. You do not need to fast for these labs. Labs should be completed no later than 10 days prior to our follow-up appointment. Failure to complete within that time frame may result in your follow-up visit being rescheduled. We will schedule you for our follow-up today before you leave. You may call [phone] to reach Cardiology to try to get a sooner appointment with Dr. Finley. Please call [phone] to schedule a follow-up Neurology's Neuromuscular Clinic. You may call [phone] to reach Wellness (Integrative medicine), as well as the Acupuncture Clinic and Massage Therapy Clinic. You may call [phone] to reach [facility] Speech Therapy. If you find a local facility you would prefer to use, please send me a [employer] message with the facility name and phone number so we can send over the referral. Pulmonary medicine will call you to schedule an appointment. If you do not hear from them within the next 1-2 weeks, please let our office know. Emphasize these foundational measures which are integral to the care of orthostatic conditions: 1. Make all postural changes from lying to sitting or sitting to standing, slowly. 2. Drink to 2.0-3 L of fluids per day. 3. Increase sodium in the diet to 3 - 5 g per day. Electrolyte supplementation via nuun tablet or liquid IV or LMNT can be helpful. 4. Avoid large meals which can cause low blood pressure during digestion. It is better to eat smaller meals more often than three large meals. Eat foods that support health and enrich your body. 5. Avoid alcohol. Alcohol and cause blood to pool in the legs which may worsen low blood pressure reactions when standing. This can aggravate orthostatic intolerance. 6. Perform lower extremity exercises to improve strength of the leg muscles. This will help prevent blood from a pooling in the legs when standing and walking. 7. During bad days, drink 500 cc of water quickly (approximately 16 oz). This will result in an increased blood pressure within 5 minutes of drinking the water. The effect will last up to one hour and may improve orthostatic intolerance. 8. Use abdominal binder or custom fitted elastic support stockings of 30-40 mmHg. These will reduce a tendency for blood to pool in the legs when standing and may improve orthostatic intolerance. 9. Use physical counter maneuvers such as leg crossing, squatting, or raising and resting the leg on a chair. These maneuvers increase blood pressure and can improve orthostatic intolerance. 10. Sleep is often vastly undervalued. One of the best ways to support your health is to maintain a regular sleep/wake cycle. Keep a routine bedtime and wake-up time. Strive for 8+ hours of sleep per night. I will see you in roughly 6-8 weeks for follow-up. Patient financial services auditor service: [email or web address] Can schedule a call by visiting that site or call [phone] or [phone] (toll-free). - The [facility] Team documented in this encounter [facility] 02-26-2023 History of Presen t illness Narrative Images from the original note were not included. COVID [facility] Initial Evaluation Pastor Heller presents to [facility] at the request of Siobhan Evangelista MD for evaluation of prolonged, > 28 days, symptoms attributed to COVID-19 infection. They have requested this consultation via eConsult and will be communicated to via the EMR or [place] Post Office Correspondence. HPI: Pastor Heller is a 32 year old female with primary symptoms as below Positive COVID-19 Test: yes Date of Positive Test: 04/13/202202/2022 Description of their course of COVID-19 illness 1. Symptoms began after 02/2022 & 04/2022 infections 2. Hospitalization? No 3. Was the patient on oxygen? No 4. Was patient discharged on oxygen? No 5. Was there an ICU stay? No 6. Was the patient intubated? No 7. Were there any COVID-19 medications given? No 8. Were there significant complications from the patients COVID-19 Illness? No 9. Has the patient received the COVID Vaccine? YES. Which vaccine? JASON COVID-19 Symptom Review Shortness of Breath or Dyspnea on Exertion Recurred persistent Cough Recurred persistent Chest discomfort/chest pain Recurred persistent Palpitations Recurred persistent Exertional intolerance Recurred persistent Fatigue Recurred persistent Dizziness Recurred persistent Syncope or Near syncope Recurred intermittent Fever Resolved Joint pain/Body aches Recurred persistent Altered taste/smell Never Lack of concentration/brain fog Recurred persistent Memory deficits Recurred persistent Diarrhea or nausea Present prior to COVID-19 infection and worsened Headaches Present prior to COVID-19 infection and worsened Difficulty sleeping Recurred intermittent HF Symptoms - Orthopnea/Edema Never Erectile Dysfunction N/A Changes in mood Present prior to COVID-19 infection and stable Urinary Symptoms Never Most significant symptoms: SOB Cough Chest discomfort Feels like an elephant sitting on her chest Hard to take a deep breath PFTs scheduled after today's visit Possible history of exercise-induced asthma in school No inhalers recently Dry cough which can wake her up at night Frequent wheezing when she is very out of breath No chest pain Palpitations Exertional intolerance Fatigue Dizziness Syncope Diagnosed with POTS Working with Cardiology BP fluctuates high and low Now on Midodrine No longer having syncopal episodes She has not implemented many lifestyle modifications Could not get out of bed for 3 days Myalgias/Arthralgias Headaches Sargents like a train hit me Tried Gabapentin Still with neck pain and stiffness Chronic migraines pre-COVID Now pain in newer areas Had eye exam this year Cognitive changes Brain fog 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 Won't remember writing her charts and documenting What she charts is accurate in sense of cohesiveness and correctness Distracted easily More trouble multitasking Sometimes struggles with Word finding difficulty Tried Strattera with initial improvement but she did not like to be on the medication due to side effects GI disturbances H/o IBS Intermittent constipation has worsened No abdominal pain Recent/previously completed testing since COVID-19 infection(s): EKG 02/10/2023 ECHO 02/10/2023 PFT pending 02/26/2023 CXR 01/16/2023 (Care Everywhere) TILT TABLE TEST 03/06/2022 Established with the following specialists: Neuromuscular - Ortega Natarajan APRN.CORNICE MAKER, last seen 05/29/2022 Neurosurgery - Dr. David Rojo, last seen 02/19/2022 Cardiology - Dr. Rita Dougherty, last seen 02/10/2023 Cardiology Syncope - Dr. Irina Finley, upcoming appt 08/17/2023 Epilepsy - Dr. Laury Magaña, last seen 03/25/2022 Neurology FMD - Dr. Prudence Jo, last seen 03/25/2022 Cardiology - [facility], Dr. Renato Mcdonald, last seen 01/15/2023 Review of Systems Constitutional: Positive for activity change and fatigue. Negative for fever. Respiratory: Positive for cough, chest tightness (pressure), shortness of breath and wheezing. Cardiovascular: Positive for palpitations. Negative for chest pain. Gastrointestinal: Positive for constipation. Negative for diarrhea, nausea and vomiting. Musculoskeletal: Positive for neck pain and neck stiffness. Skin: Negative for rash. Neurological: Positive for dizziness, syncope and headaches. Negative for numbness. Psychiatric/Behavioral: Positive for decreased concentration and sleep disturbance. Negative for confusion. PAST MEDICAL HISTORY Diagnosis Date Arnold-Chiari malformation (HCC) COVID Depression Family history of seizure disorder Migraines Nephrolithiasis Ovarian cyst POTS (postural orthostatic tachycardia syndrome) Preeclampsia Syncope Medication Review: Current Outpatient Medications Medication Sig midodrine (PROAMATINE) 2.5 mg tablet Take 2.5 mg by mouth as directed. When SBP <100 estrogens conjugated (PREMARIN) 0.625 mg tablet Take 1 tablet by mouth every morning. NURTEC ODT 75 mg disintegrating tablet Take 75 mg by mouth once daily as needed (Migraines). pantoprazole DR (PROTONIX) 40 mg tablet Take 40 mg by mouth once daily. tiZANidine (ZANAFLEX) 4 mg tablet Take 4 mg by mouth daily at bedtime. No current facility-administered medications for this visit. Objective Findings: Vitals: BP 118/81 (BP Site: Left Arm, BP Position: Sitting) Pulse 78 Resp 17 SpO2 98% Initial Screening Questionaires review: PROMIS/NeuroQoL Score Percentiles PROMIS Global Health Scale 02/03/2023 03/25/2022 01/09/2022 Physical Health Percentile 15 22* 10 Mental Health Percentile 53 43 34 Percentiles provide an indication of how a patient s score ranks in relation to the [place] general population. > 31st percentile is within normal limits or better * < 31st percentile is at least SD worse than population, which may be clinically relevant < 16th percentile is at least 1 SD worse than population and warrants attention PHQ-9 02/03/2023 03/25/2022 01/09/2022 PHQ-2 Score 0 0 1 PHQ-9 Score 6 4 13 ESTHELA - 2/7 SCORES 03/25/2022 ESTHELA-2 Score 0 ESTHELA-7 Score 0 Physical Examination: Physical Exam Vitals reviewed. Constitutional: General: She is not in acute distress. Appearance: Normal appearance. She is not ill-appearing, toxic-appearing or diaphoretic. HENT: Head: Normocephalic and atraumatic. Right Ear: External ear normal. Left Ear: External ear normal. Eyes: Conjunctiva/sclera: Conjunctivae normal. Pupils: Pupils are equal, round, and reactive to light. Cardiovascular: Rate and Rhythm: Normal rate and regular rhythm. Pulses: Normal pulses. Heart sounds: Normal heart sounds. Pulmonary: Effort: Pulmonary effort is normal. No respiratory distress. Breath sounds: Normal breath sounds. No stridor. No wheezing, rhonchi or rales. Chest: Chest wall: No tenderness. Musculoskeletal: Cervical back: Normal range of motion and neck supple. Tenderness present. Lymphadenopathy: Cervical: No cervical adenopathy. Skin: Capillary Refill: Capillary refill takes less than 2 seconds. Coloration: Skin is not jaundiced or pale. Findings: No bruising or rash. Neurological: Mental Status: She is alert and oriented to person, place, and time. Gait: Gait normal. Psychiatric: Mood and Affect: Mood normal. Behavior: Behavior normal. Assessment and Plan: 1. Post-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 (PASC) - ICD9: 139.8, ICD10: U09.9 2. SOB (shortness of breath) - ICD9: 786.05, ICD10: R06.02 3. Cough, unspecified type - ICD9: 786.2, ICD10: R05.9 4. Chest pressure - ICD9: 786.59, ICD10: R07.89 5. Palpitations - ICD9: 785.1, ICD10: R00.2 6. POTS (postural orthostatic tachycardia syndrome) - ICD9: 427.89, ICD10: G90.A 7. Brain fog - ICD9: 799.59, ICD10: R41.89 8. Difficulty concentrating - ICD9: 799.51, ICD10: R41.840 9. Memory changes - ICD9: 780.93, ICD10: R41.3 10. Headaches - ICD9: 784.0, ICD10: R51.9 11. Neck pain - ICD9: 723.1, ICD10: M54.2 12. Chronic fatigue - ICD9: 780.79, ICD10: R53.82 13. Activity intolerance - ICD9: 780.99, ICD10: R68.89 14. Dizziness - ICD9: 780.4, ICD10: R42 15. Neck stiffness - ICD9: 723.5, ICD10: M43.6 16. Irritable bowel syndrome with constipation - ICD9: 564.1, ICD10: K58.1 17. Cognitive changes - ICD9: 799.59, ICD10: R41.89 - The patient and I reviewed the below testing in detail. We discussed indications for testing and the benefits of results in directing the plan of care - Will await test results and discuss at our follow up visit - The patient will then follow up with consulted specialists and their PCP - Patient encouraged to continue following with established specialists - Deferred repeat EKG, ECHO, CXR at this time - CBC - COMP METABOLIC PANEL - VITAMIN B12 BLOOD - FOLATE SERUM - VITAMIN D 25 HYDROXY - TRACE ELEMENTS/TPN - C-REACTIVE PROTEIN (CRP) - FERRITIN BLD - OMEGACHECK - CONSULT TO SPEECH THERAPY - CONSULT FOR ACUPUNCTURE - CONSULT TO WELLNESS PHYSICIAN - CONSULT TO MASSAGE THERAPY - CONSULT TO PULMONARY MEDICINE - Encouraged follow-up with Neuromuscular Clinic and Headache Clinic The patient was informed of how [facility] functions. We are a referral service. As a referral service, we cannot determine work restrictions, complete FMLA/disability forms, or provide surgical clearance. The patient will have an initial visit as well as one follow up virtual visit in which all testing, imaging, and labs will be discussed. From there on it is expected that they continue to follow up with their PCP and the specialists established through this program. Patient will be sent questionnaires every 3 months for 1 year to monitor their progress. Once a questionnaire is completed, a member of our team may reach out to them to review. Consults initiated today: SPEECH THERAPY For PASC, brain fog, difficulty concentrating, memory changes, cognitive changes Scheduling # provided ACUPUNCTURE For PASC, headaches, neck pain/stiffness, chronic fatigue Scheduling # provided WELLNESS For PASC, POTS, headaches, neck pain, chronic fatigue, IBS-C, brain fog Scheduling # provided MASSAGE THERAPY For PASC, headaches, neck pain, chronic fatigue, stiffness Scheduling # provided PULMONARY MEDICINE For PASC, SOB, cough, chest pressure Internal scheduling message sent Return in about 6 weeks (around 04/09/2023) for virtual follow-up to review results once complete. Plan reviewed with patient, who verbalized understanding and is in agreement. I spent a total of 65 minutes on the date of the service which included preparing to see the patient, [id number] patient care, completing clinical documentation, obtaining and/or reviewing separately obtained history, performing a medically appropriate examination, counseling and educating the patient/family/caregiver, ordering medications, tests, or procedures, communicating with other HCPs (not separately reported), independently interpreting results (not separately reported), communicating results to the patient/family/caregiver, and care coordination (not separately reported). Rodríguez Mccauley APRN.CNP February 26, 2023 8:00 AM CC: Siobhan Evangelista MD [id number] [facility] [id number] documented in this encounter [facility] 02-26-2023 Note HNO ID: [id number] Author: Eitan Mccauley APRN.CNP Service: ? Author Type: Nurse Practitioner Type: Progress Notes Filed: 02/26/2023 9:39 AM Note Text: [facility] Initial Evaluation Pastor Heller presents to [facility] at the request of Siobhan Evangelista MD for evaluation of prolonged, > 28 days, symptoms attributed to COVID-19 infection. They have requested this consultation via eConsult and will be communicated to via the EMR or [place] Post Office Correspondence. HPI: Pastor Heller is a 32 year old female with primary symptoms as below Positive COVID-19 Test: yes Date of Positive Test: 04/13/202202/2022 Description of their course of COVID-19 illness 1. Symptoms began after 02/2022 AND 04/2022 infections 2. Hospitalization? No 3. Was the patient on oxygen? No 4. Was patient discharged on oxygen? No 5. Was there an ICU stay? No 6. Was the patient intubated? No 7. Were there any COVID-19 medications given? No 8. Were there significant complications from the patients COVID-19 Illness? No 9. Has the patient received the COVID Vaccine? YES. Which vaccine? [facility] COVID-19 Symptom Review Shortness of Breath or Dyspnea on Exertion Recurred persistent Cough Recurred persistent Chest discomfort/chest pain Recurred persistent Palpitations Recurred persistent Exertional intolerance Recurred persistent Fatigue Recurred persistent Dizziness Recurred persistent Syncope or Near syncope Recurred intermittent Fever Resolved Joint pain/Body aches Recurred persistent Altered taste/smell Never Lack of concentration/brain fog Recurred persistent Memory deficits Recurred persistent Diarrhea or nausea Present prior to COVID-19 infection and worsened Headaches Present prior to COVID-19 infection and worsened Difficulty sleeping Recurred intermittent HF Symptoms - Orthopnea/Edema Never Erectile Dysfunction N/A Changes in mood Present prior to COVID-19 infection and stable Urinary Symptoms Never Most significant symptoms: SOB Cough Chest discomfort Feels like an elephant sitting on her chest Hard to take a deep breath PFTs scheduled after today's visit Possible history of exercise-induced asthma in school No inhalers recently Dry cough which can wake her up at night Frequent wheezing when she is very out of breath No chest pain Palpitations Exertional intolerance Fatigue Dizziness Syncope Diagnosed with POTS Working with Cardiology BP fluctuates high and low Now on Midodrine No longer having syncopal episodes She has not implemented many lifestyle modifications Could not get out of bed for 3 days Myalgias/Arthralgias Headaches Sargents like a train hit me Tried Gabapentin Still with neck pain and stiffness Chronic migraines pre-COVID Now pain in newer areas Had eye exam this year Cognitive changes Brain fog 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 Won't remember writing her charts and documenting What she charts is accurate in sense of cohesiveness and correctness Distracted easily More trouble multitasking Sometimes struggles with Word finding difficulty Tried Strattera with initial improvement but she did not like to be on the medication due to side effects GI disturbances H/o IBS Intermittent constipation has worsened No abdominal pain Recent/previously completed testing since COVID-19 infection(s): EKG 02/10/2023 ECHO 02/10/2023 PFT pending 02/26/2023 CXR 01/16/2023 (Care Everywhere) TILT TABLE TEST 03/06/2022 Established with the following specialists: Neuromuscular - Ortega Natarajan APRN.CORNICE MAKER, last seen 05/29/2022 Neurosurgery - Dr. David Rojo, last seen 02/19/2022 Cardiology - Dr. Rita Dougherty, last seen 02/10/2023 Cardiology Syncope - Dr. Irina Finley, upcoming appt 08/17/2023 Epilepsy - Dr. Laury Magaña, last seen 03/25/2022 Neurology FMD - Dr. Prudence Jo, last seen 03/25/2022 Cardiology - [facility], Dr. Renato Mcdonald, last seen 01/15/2023 Review of Systems Constitutional: Positive for activity change and fatigue. Negative for fever. Respiratory: Positive for cough, chest tightness (pressure), shortness of breath and wheezing. Cardiovascular: Positive for palpitations. Negative for chest pain. Gastrointestinal: Positive for constipation. Negative for diarrhea, nausea and vomiting. Musculoskeletal: Positive for neck pain and neck stiffness. Skin: Negative for rash. Neurological: Positive for dizziness, syncope and headaches. Negative for numbness. Psychiatric/Behavioral: Positive for decreased concentration and sleep disturbance. Negative for confusion. PAST MEDICAL HISTORY Diagnosis Date Arnold-Chiari malformation (HCC) COVID Depression Family history of seizure disorder Migraines Nephrolithiasis Ovarian cyst POTS (postural orthostatic tachycardia syndrome) Preeclampsia Syncope Medication Review: Current Outpatient Medications Med (more content not included)... [facility] 02-12-2023 Miscellaneous Notes Called patient, scheduled PFT's on 02/26/2023. Recent echo 02/10/2023 reviewed No PFTs on file to review Proceed with PFTs as part of cardiopulmonary evaluation, please assist with scheduling Did the patient test positive for COVID (antibody testing NOT accepted): Yes Date of Positive Test: 04/13/22, 03/03 Type of test (home test or PCR): PCR, PCR COVID vaccine type and dates (if not already on file): on file 2. Is the patient seeing us for taste/smell changes? No 3. Is patient traveling far (1 hour+) or coming from another state: Yes 3A. Does the patient have SOB? Yes 3B. Does the patient have any chest pain or palptations? Yes (Echo done 02/10 at [facility]) 4. Please inform patient of the below information if they have not been sent [facility] appt reminder: [facility] functions as a referral service. You will have an initial visit as well as one follow-up virtual visit in which all [facility] testing, imaging, and labs will be discussed. From there on it is expected that you continue to follow up with your PCP and the specialist(s) established through this program. We do not manage symptoms or follow patients longterm. COVID [facility] intake team is not able to assist with disability requests, including work restrictions or clearances as we do not do active treatment and management of long-COVID symptoms, and are not actively involved in long-term care after your 2 visits. Your primary care provider and the consulted specialists we discuss during our visit(s) are better suited for assisting with disability requests. Those providers are welcome use our office note and testing to help support their plans of care. Patients will be expected to have labs, testing, and consults done through [facility]; we cannot fax orders to outside facilities, and do not have acess to outside providers. Please be prepared that you may need to travel to [place] multiple times to get all testing done and see the consulted specialist(s). Please arrive 15 minutes early to your appointment and complete the questionnaires you have received via [facility] ahead of time. If you are more than 10 minutes late to your appointment you may be asked to reschedule. If you have outside testing you would like to be entered into your chart, please fax it to [phone]. Records brought in same day of visit may not be reviewed until after the visit due to time constraints. documented in this encounter [facility] 11-10-2022 Miscellaneous Notes Per GABBI- Insurance plan is INN however requires auth for all services.. referrals placed Patient: Pastor Heller Date of : 1990 Patient phone number: [phone] Referring Provider for the encounter: Siobhan Evangelista Requesting Provider: NA Reason for requesting visit (RFV/signs and symptoms/diagnosis): tachycardia Person calling: self Return call to: self Medical Records/Insurance Card scanned into [employer]: Yes Comments: NA documented in this encounter [facility] 10-27-2022 Miscellaneous Notes Message sent to patient to advise that eyes look good. Instructed her to call and schedule with headache clinic as discussed. Cata Leigh RN, BSN Received medical records from [facility]. In scanned documents for review. documented in this encounter [facility] 06-23-2022 Miscellaneous Notes MRI report scanned for review but no images. Cata McSkimming RN [facility] Scanned documents into patient chart for review. documented in this encounter [facility] 05-29-2022 Instructions Ortega Natarajan APRN.CORNICE MAKER - 05/29/2022 4:24 PM EST 1) Labs 2) Eye doctor for papilledema exam - send me the notes from your eye doctor 3) MRI / MRV brain 4) SMA 5) Diamox: -250 mg 2 x daily for 2 weeks -500 mg 2 x daily 6) Taper off gabapentin: -100 mg 2 x daily for 1 week -Then 100 mg daily for 1 week -Then 100 mg every other day for 3 days, then STOP 7) Consult to headache clinic 8) Let me know when you complete EMU admission Conservative Measures: Make all postural changes from lying to sitting or sitting to standing slowly. Drink to 2.0 -2.5 L of fluids per day. With bad symptoms, drink 500 cc of water quickly. This will result in an increased blood pressure within 5 minutes of drinking the water. The effect will last up to one hour and may improve orthostatic intolerance. Increase sodium in the diet to 3 - 5 g per day. If not helpful and BP is stable, may try 5-7 g per day. IF BLOOD PRESSURE RISES OR IS RISING CUT BACK ON SALT LOADING. Liquid IV, Nuun tabs, powerade / gatorade (zero formulations are OK), pedialyte, LMNT, Body Armor are all OK. Avoid large meals which can cause low blood pressure during digestion. It is better to eat smaller meals more often than three large meals. Avoid alcohol. Alcohol and cause blood to pool in the legs which may worsen low blood pressure reactions when standing. Avoid excessive caffeine intake as it may increase urine production and reduce blood volume. Perform lower extremity exercises to improve strength of the leg muscles. This will help prevent blood from a pooling in the legs when standing and walking. Preferred exercises are walking, squatting or stationery bicycling. An increased exercise duration by weekly should be considered. Use custom fitted elastic support stockings. These will reduce a tendency for blood to pool in the legs when standing and may improve orthostatic intolerance. Please try 30-40 mmHg compression. Raise the head of the bed by 6 to 10 inches. The entire bed must be at an angle. Raising only the head portion of the bed at waist level or using pillows will not be effective. Raising the head of the bed will reduce urine formation overnight and there will be more volume in the circulation in the morning. Use physical counter maneuvers such as leg crossing, or leg raising and resting the leg on a chair. These maneuvers increase blood pressure and can improve orthostatic intolerance quickly and transiently. documented in this encounter [facility] 05-29-2022 History of Presen t illness Narrative Images from the original note were not included. [facility] Follow-Up/Established Patient Visit Chief Complaint/Issues: Pastor Heller is a 31 year old handed right-handed female seen in the [facility] for: Follow up POTS Brief HPI /Most Recent Department Assessment and Plan: Seen 02/16/2022 for initial evaluation: She follows with Dr. Rojo for her chiari. 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 Was admitted and transferred to [facility], ultimately deemed to be functional in nature according to inpatient notes. She has ongoing symptoms of hand weakness which predates this episode. She states it is bilateral, R>L. Has trouble opening jars and drops objects. Can have numbness of the 4th and 5th digit, concerning for ulnar neuropathy. She has episodes of TLOC which can occur when seated or standing. Frequency is variable, but can be as often as weekly. She states the episodes are progressing, and initially was losing consciousness for 3 minutes, now often unconscious for up to 30 minutes. She gets prodrome of feeling hot and tingling, often associated with significant headache / pounding. She does not have incontinence or mouth maceration. She has some post-ictal confusion for up to 20 minutes and feels very lethargic. These are not vasovagal in nature given duration of unconsciousness. She gets regular prodrome which raises some concern for seizure > cardiac event. Will obtain EEG. She had cardiac event monitor locally and did have events while wearing it. She has orthostatic lightheadedness and tachycardia. She can sometimes have heart racing while seated. These symptoms started after having COVID in April. She follows with local cardiology, has tried multiple medications, currently taking Ivabradine. Agree with likely POTS based on orthostatic VS, tilt is needed for diagnosis. On exam today she does have weakness of the right side as well as decreased sensation for large and small fiber findings. She has +Tuning fork discrepancy. Agree with diagnosis of FND, will refer do Dr. Jo for management. 1. EMG - WNL 2. Send me cardiac event monitor - Not received for review 3. Agree with tilt table test - borderline for POTS 4. EEG long - WNL 5. Consult to epilepsy 6. Speech swallow evaluation 7. No driving until syncope is managed / seen by epilepsy 8. Labs (fasting) - WNL 9. Consult to Dr. Prudence Jo Seen by epilepsy, Dr. Magaña, 03/25/2022: Episodes of unclear etiology. Differential includes epilepsy vs PNES. Needs a diagnostic VEEG to clarify given high burden and risk of injury (already admitted to ICU and fallen off stairs). PLAN: diagnostic VEEG Seen by Dr. Jo, 03/25/2022: ...During her January hospitalization, she had acute weakness and numbness with quick recovery except for RUE dysfunction which partially recovered annita 2 days with mild residual complaints of numbness and weakness. She follows with other providers for the working diagnoses of query POTs and query chiari malformation. Long COVID could also be a consideration. She had tried several agents for POTs and is now on Corlanor. Number of LOC may have reduced but it is an ongoing concern. Headaches are somewhat improved with gabapentin, tizanidine and Nurtec. Her examination shows: mild neck of left head rotation, reports of subjective sensory alteration on the forehead and right cheek an the tips of all right hand digits, downward drift and mild RUE>RLE weakness in multiple muscles with some giveway. We think that it is worthwhile that she proceeds with the remaining evaluation to further explore possible etiologies of weakness, with EMG, and epilepsy evaluation give the stereotyped nature of the spells. There are examination signs of functional weakness of the right hemibody. It is possible that this is secondary to Functional neurologic Disorder, if no alternative explanation is detected on pending tests. Of note, she had no vascular evaluation of posterior circulation as far as I can tell. 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 She only had two episodes of syncope. She had both events related to stress. She saw cardiology locally. She was taken off ivabradine for some time with worsening of symptoms, but has restarted. She finds every morning she wakes up with a slight headache (3-4 in severity). Some days the headache gets better, other days it will escalate. She is taking Excedrin 3 days per week. She is taking the Nurtec 8 days per month. She is limiting caffeine without benefit. She is remaining active and has good salt intake. -Headaches worst in the last 1.5 years -Currently getting almost daily headache. +Nausea +phonophobia +Aura before migraine -Mild-severe -Lasting hour - hours -Bilateral occipital or bilateral temporal, can wrap to front -Sudden onset -Sharp and throbbing -Does not get a headache after waking up from a nap +Wakes up with a headache - new in the last 2 months +Worse with exertion +Cough or sneeze as trigger +Valsalva as trigger PMH PAST MEDICAL HISTORY Diagnosis Date Arnold-Chiari malformation (HCC) Depression Family history of seizure disorder Migraines Nephrolithiasis Ovarian cyst Preeclampsia PAST SURGICAL HISTORY Procedure Laterality Date REVISE MEDIAN N/CARPAL TUNNEL SURG VAGINAL HYSTERECTOMY for uncontrolled vaginal bleeding ALLERGIES Allergen Reactions Adhesive Tape-Silic* Rash Bactrim [Sulfametho* Hives Sulfa (Sulfonamide * Hives Social History Tobacco Use Smoking status: Former Smokeless tobacco: Never Substance Use Topics Alcohol use: Yes Comment: hardly any FAMILY HISTORY Problem Relation Age of Onset Diabetes Father Alcohol/Drug Father Autoimmune disease Father Genitourinary () Mother Alcohol/Drug Mother Alcohol/Drug Paternal Grandfather Breast Cancer Paternal Grandmother Current management of orthostatic condition Conservative Measures: Increased water intake (2-2.5 liters of water daily) Increased salt intake (3-5 grams daily) Compression stockings Cardiac Rehab / Progressive exercise Shared medical appointment with Dr. Sim Current Outpatient Medications on File Prior to Visit Medication Sig CORLANOR 5 mg tablet TAKE 1 TABLET BY MOUTH TWICE DAILY IN THE MORNING AND BEFORE BEDTIME buPROPion XL (WELLBUTRIN XL) 150 mg 24 hr tablet Take 150 mg by mouth once daily. (Patient not taking: Reported on 03/25/2022) NURTEC ODT 75 mg disintegrating tablet DISSOLVE 1 TABLET BY MOUTH ONCE DAILY gabapentin (NEURONTIN) 300 mg capsule Take 300 mg by mouth three times daily. OXcarbazepine (TRILEPTAL) 150 mg tablet Take 300 mg by mouth twice daily. HYDROcodone-acetaminophen (NORCO) 5-325 mg per tablet Take 1 tablet by mouth every 8 hours as needed for pain. (Patient not taking: No sig reported) pantoprazole DR (PROTONIX) 40 mg tablet Take 40 mg by mouth once daily. tiZANidine (ZANAFLEX) 4 mg tablet Take 4 mg by mouth daily at bedtime. No current facility-administered medications on file prior to visit. Relevant Current Medications: Ivabradine 5 mg BID Tizanidine Gabapentin Nurtec Medications tried previously (failed): Midodrine 2.5 mg TID 2. Fludrocortisone 0.1 mg TID 3. Metoprolol ER 25 mg Relevant Work Up To Date Labs Vit E, ceruloplasmin WNL EPS Tilt 03/06/2022 * FINAL IMPRESSIONS * - The test was completed per protocol at 45 minutes of 70 degree tilt. - Systolic blood pressures: 107 mmHg at start to 125 mmHg at end of tilt. - Diastolic blood pressures: 72 mmHg at start to 71 mmHg at end of tilt. - Blood pressure upon return to supine position was 128/79 mmHg. - Heart rates: 87 bpm at start to 95 bpm at end of tilt. - Heart rate upon return to supine position was 83 bpm. - Patient signs/symptoms included: BLURRY VISION, DIZZINESS, HEADACHE, HOT, LIGHTHEADED, PALPITATIONS, SEE NOTE, TINGLING. - Overall: A postural increase in heart rate was seen that was borderline for accentuated postural tachycardia. EMG 03/25/2022 Study Interpretation Electrodiagnostic examination of the right upper limb reveals: 1. No definite evidence of a right ulnar neuropathy. 2. No definite evidence of a right cervical (including C5-T1) motor radiculopathy. 3. Screening studies for median mononeuropathy did not reveal any definite abnormalities. 4. There is a right cate grabiel anastomosis present which is a normal anatomical variant. EEG Long 03/19/2022 Impression: This EEG is within normal limits. No epileptiform discharges or EEG seizures were seen during this recording. CT Cervical WO 01/23/2022 IMPRESSION: 1. The degree of shift of the C1 lateral masses over the C2 lateral masses with rotation to either side within the spectrum of normal. Please see reference article below. 2. No change in the positioning of the dens relative to the anterior arch of C1 nor in the atlanto-occipital articulations with rotation to either side. Anatomic Variant: None. Assume 7 cervical vertebrae with counting from the craniocervical junction. Echo 01/23/2022 CONCLUSIONS: - Exam indication: Initial evaluation valvular heart disease - The left ventricle is normal in size. Left ventricular systolic function is normal. EF = 61 5% (2D biplane) Normal left ventricular diastolic function. - The right ventricle is normal in size. Right ventricular systolic function is normal. - There are no significant valvular abnormalities. - The patient has not had a prior CC echocardiographic exam for comparison. General Examination: BP 119/68 Pulse 90 Ht 152.4 cm (5') Wt 49.9 kg (110 lb) SpO2 96% BMI 21.48 kg/m 05/29/22 1553 BP: 119/68 Pulse: 90 SpO2: 96% Weight: 49.9 kg (110 lb) Height: 152.4 cm (5') Neurological Examination: Cognition The patient is alert and oriented times four. Lucid and organized in conversation. Able to provide detailed medical hx. Speech Speech is Normal in fluency, volume, and clarity. No dysarthria. Content and syntax are coherent. Cranial Nerves No ptosis. No gross asymmetry. Tone and Bulk Tone and bulk is normal and preserved bilaterally of arms. Tone and bulk is normal and preserved bilaterally of legs. No apparent muscle atrophy. Gait Able to stand without upper body assistance. Normal station and stride. No festination or retropulsion. Assessment & Plan 05/29/2022 - General Neurology, Ortega Natarajan APRN.[facility] Pastor Heller is a 31 year old here today for follow up. Relevant history of chiari malformation, migraines, depression, ovarian cyst, nephrolithiasis. Seen initially in February, after hospital admission for TLOC and paralysis. At that time she had onoging hand weakness, right sided weakness on exam, large and small fiber findings, as well as +Tuning fork sign. EMG was within normal limits. Referral was placed to Dr. Jo. Primary complaint was episodes of TLOC that can occur seated or standing, lasting up to 20 minutes. She was seen by epilepsy with plan for EMU admission. She had EPS tilt in 02/2022, confirming POTS diagnosis. Currently on ivabradine 5 mg BID. In the interim, POTS symptoms are well managed on ivabradine. She has only 2 syncopal episodes in the interim, and she endorses high stress levels around that time. She complains today of positional headache, waking up in the AM with a headache which sometimes dissipates throughout the day. She has headache onset with valsalva, cough / sneeze. There is concern for IIH given her Chiari, and as symptoms are new since most recent MRI, we need to obtain updated scans. She is not well controlled on gabapentin, will trial Diamox and referral to headache clinic. PLAN 1) Labs 2) Eye doctor for papilledema exam - send me the notes from your eye doctor 3) MRI / MRV brain 4) SMA 5) Diamox: -250 mg 2 x daily for 2 weeks -500 mg 2 x daily 6) Taper off gabapentin: -100 mg 2 x daily for 1 week -Then 100 mg daily for 1 week -Then 100 mg every other day for 3 days, then STOP 7) Consult to headache clinic 8) Let me know when you complete EMU admission Return 3-6 months. My impression and recommendations were discussed at length with the patient (and family members, if present). The patient and family (if present) voiced understanding to my recommendations. All questions were answered. Medication side effects discussed as applicable. The patient was provided with a detailed after visit summary highlighting my impression and recommendations. I spent a total of 30 minutes on the date of the service which included preparing to see the patient, [id number] patient care, completing clinical documentation, obtaining and/or reviewing separately obtained history, counseling and educating the patient/family/caregiver, and ordering medications, tests, or procedures. Ortega Natarajan APRN.[facility] General Neurology [address] [place]. [address] Appointment: [phone] During our face to face clinical encounter we discussed my concerns neurologically in terms of diagnosis, impact on health and activities of living, and addressed questions. I tried to reassure the patient and also address questions. I explained to the patient to call if any questions, to review results, and I want to see them return for neurological follow up as mychart as next steps of communication is agreed upon Patient verbalizes understanding and I have addressed concerns and questions at this visit Patient has my contacts, educational material provided, and my chart sign up. After visit summary discussed. 1. This office note has been dictated and may contain minor typographic errors that escaped review. 2. The nursing staff and medical assistants are a major part of YOUR TREATMENT TEAM and will be handling your phone calls and inquiries, if any. Unless explicitly told otherwise at the time of your office visit, your study results and ensuing treatment plans will be discussed during your follow-up appointment. If you do not have a follow-up appointment and wish to discuss any issues directly with me, please feel free to obtain one. 3. It is my practice to not fill disability or any other insurance-related forms/documention. All of the office notes, study results, and other pertinent documentation generated as part of your evaluation will be available to you and to your Primary Care Physician (PCP). Use of this material to complete such forms will be at the discretion of your PCP/referring physician documented in this encounter [facility] 04-08-2022 Miscellaneous Notes Paperwork printed and placed in PA's folder for signature. Forms Received forms via onbase from: [facility] Contact Type of Paperwork Being Requested : Plan of care signature Date Paperwork is Needed : as soon as possible documented in this encounter [facility] 03-25-2022 History of Presen t illness Narrative [facility] Patient Name: Pastor PORRAS Date of : 1990 Referring Provider: Ortega Natarajan [address] [place], [place] [id number] INITIAL EPILEPSY CLINIC NOTE 03/25/2022 10:00 AM CHIEF COMPLAINT: New Patient and Consult HISTORY OF PRESENT ILLNESS Ms. Heller is a 31 year old right-handed female seen in [facility] for initial consultation. Handedness: right-handed Age of onset: Seizure History and Evolution Ms. Pastor Heller is a 31 yo F with a PMH significant for migraines and Chiari I malformation presenting with several months of multiple neurological symptoms. Though she has had migraines her entire life, her headaches changed after a COVID diagnosis in April,. Since then, her headaches are worse upon waking, bending over, coughing, and rolling over in bed. She also reports visual disturbance with the headaches. She has also been experiencing syncopal episodes that have been increasing in frequency since April. She states that she will feel her heart racing, she will get tingling in her extremities, tinnitus, and flushing sensation prior to passing out. The LOC can occur while standing or sitting and are often accompanied by periods of amnesia. She is unable to recall events before or after her black outs. Her endorses a blank stare during which she is unresponsive. She was recently started on metoprolol and states that her passing out episodes have decreased in frequency. In addition, she has been having numbness and tingling in her extremities, along with an overall burning sensation throughout her body and her head that comes and goes while lasting less than 30 min. Another new symptom she describes is shortness of breath upon little exertion. Work-up has been unrevealing (see details). Visit earlier today with movement disorders wraped up with impression of functional movement disorder and recommendation of FMD-PT. Seeing me for events with loss of consciousness. Total # of Current Anti-seizure Medications: Side Effects to Current Anti-seizure Medications: Seizure Frequency at First Visit: Longest Seizure-free Interval: CURRENT OUTPATIENT ANTISEIZURE MEDICATIONS (as of the start of the encounter) gabapentin (NEURONTIN) 300 mg capsule (Taking) OXcarbazepine (TRILEPTAL) 150 mg tablet (Taking) Prior Anti-seizure Therapies: Trial Adequacy: Max Daily Dose Achieved: Side Effects: Effectiveness: Comments: Gabapentin, other use Oxcarbazepine, other use Topiramate, other use Comorbidities: Episode Description: SEIZURE TYPE 1: head day Aura: no Description: I wake up and I know this will be a head day. My body just feels funny. Feels different. Nothing I can do to make me feel better (I can rest, walk, etc: I still feel weird). This started in July 2021. Initially once a month. In September became once every other week. This can last the whole day. Loss of awareness: Duration: Frequency: Last occurred: no longer than 10 minutes 2 per month SEIZURE TYPE 2: syncopal events Aura: yes Aura - Sensory: Body sensation Description: also started in July 2021. start with a tingling sensation all over, like a loss of circulation all over my body. ears rig. I see black blobs. Then everything goes black. Happen in any body position. No triggers. Nothing prevents it. It takes me a while afterwards to realize where I am and what I am doing. per witness: usually, these happen when she is having bad headaches. She lays her head down. When she is out, she just sleeps for 3-5 minutes. Her body usually just slowly slides down (no shock, no stiffness). When she comes to, she stares for about 5 minutes before she recognizes that she is awake. Needs about 10 minutes before recovering to being able to talk again. No tongue bite nor incontinence. Same frequency as head days: once a month at onset, then twice a month since September 2021. Has had falls with these: November 2021, fell down a full flight of stairs and ended up in ED. Has also been found on the floor next to her bed (had one while sleeping and fell off the bed). Loss of awareness: Duration: Frequency: Last occurred: yes 5 to 10 minutes 2 per month SEIZURE TYPE 3: twitching episodes Onset: January 2022 Aura: yes Aura - Sensory: Body sensation Description: start same as Types 1 and 2. These evolve though into right arm and leg tremors. Subtle tremors. These happened twice. 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 Occurred twice total.Once, however, this led to ICU admission in January 2022: She states she felt paralyzed from the neck down (but was able to breathe) and had difficulty with her speech. Symptoms mostly resolved after about 30 minutes with the exception of right arm and leg weakness and paraesthesias. She states that this episode was unlike any prior episode as symptoms were more severe and persisted longer than normal. Transferred to [facility] in [facility]. Evaluation ruled out emergencies. Assessment was Chiari and functional disorder. Function gradually recovered. Loss of awareness: Duration: Frequency: Last occurred: yes longer than 10 minutes 2 per year Patient Entered Data: EPILEPSY SCORE 03/25/2022 8:47 AM 03/25/2022 8:46 AM 01/09/2022 6:54 AM First answer obtained - 01/08/2022 5:53 PM PHQ-9 SCORE - 4 [None-Minimal Depression] 13 [Moderate Depression] - ESTHELA 2 SCORE - - - - ESTHELA 7 SCORE 0 [Minimial Anxiety Disorder] - - - QOLIE-10 SCORE (0=worst; 100=best QoL - higher scores represent better function) - - - - LSSS SCORE (0- no seizures 100- most severe possible seizures) - - - - C-SSRS SCREEN - - - - On average, how many hours of sleep do you get in a 24-hour period? - - 6 - PROMIS Sleep Disturbance T-SCORE - - - 65 [moderate] Have you been diagnosed with Sleep Apnea? - - No - Seizure risk factors: Brain Tumor No PATIENT SERVICES REP Infections No Developmental Delay No Family history of seizures Yes Febrile Seizure No Complications No Stroke No Traumatic Brain Injury No Previous Epilepsy Evaluations EEG: Long EEG in [facility] 03/19/2022: Classifications: Normal (10-20 Scalp Electrodes, Anterior Temporal Electrodes, Awake, Photic Stimulation, Auditory Stimulation, Sleep) Interictal: Normal, Impression: This EEG is within normal limits. No epileptiform discharges or EEG seizures were seen during this recording. note: told me in clinic initial visit today that patient must have had an episode during the EEG visit because she was staring off and unresponsive when she woke up. We pulled up the video of the EEG and reviewed it together. She was still asleep when recording was terminated. So, event happened AFTER the EEG had concluded and we have no documentation of her EEG correlate. portable 20 min recording in February 2022: normal. VEEG: none MRI: 12/22/2021: MR of the brain demonstrates the volumes of the ventricular system, sulci, and basilar cisterns are unremarkable for the patient's stated age of 31 years. The visualized paranasal sinuses and orbits are unremarkable. The visualized paranasal sinuses and orbits are grossly unremarkable. There is no signal abnormality on the FLAIR, diffusion weight, gradient echo, or postcontrast scans. Sagittal midline images demonstrate that the cerebellar tonsils are 1 or 2 mm below the plane of the foramen magnum, well within the broad limits of normal. There is no definite evidence of Chiari malformation, pituitary abnormality, or other abnormality of any midline structure. Impression: MR of the brain is grossly unremarkable without obvious signal abnormality, structural malformation, or area of pathologic enhancement to explain the patient's symptoms. Other: extensive cardiac evaluation locally. Other caregivers: Primary Care Provider: Siobhan Evangelista MD, MD Current Outpatient Medications Medication Sig CORLANOR 5 mg tablet TAKE 1 TABLET BY MOUTH TWICE DAILY IN THE MORNING AND BEFORE BEDTIME NURTEC ODT 75 mg disintegrating tablet DISSOLVE 1 TABLET BY MOUTH ONCE DAILY gabapentin (NEURONTIN) 300 mg capsule Take 300 mg by mouth three times daily. OXcarbazepine (TRILEPTAL) 150 mg tablet Take 300 mg by mouth twice daily. pantoprazole DR (PROTONIX) 40 mg tablet Take 40 mg by mouth once daily. tiZANidine (ZANAFLEX) 4 mg tablet Take 4 mg by mouth daily at bedtime. buPROPion XL (WELLBUTRIN XL) 150 mg 24 hr tablet Take 150 mg by mouth once daily. (Patient not taking: Reported on 03/25/2022) HYDROcodone-acetaminophen (NORCO) 5-325 mg per tablet Take 1 tablet by mouth every 8 hours as needed for pain. (Patient not taking: No sig reported) No current facility-administered medications for this visit. ALLERGIES Allergen Reactions Adhesive Tape-Silic* Rash Bactrim [Sulfametho* Hives Sulfa (Sulfonamide * Hives PAST MEDICAL HISTORY Diagnosis Date Depression Family history of seizure disorder Migraines Nephrolithiasis Ovarian cyst Preeclampsia PAST SURGICAL HISTORY Procedure Laterality Date REVISE MEDIAN N/CARPAL TUNNEL SURG VAGINAL HYSTERECTOMY for uncontrolled vaginal bleeding FAMILY HISTORY Problem Relation Age of Onset Diabetes Father Alcohol/Drug Father Autoimmune disease Father Genitourinary () Mother Alcohol/Drug Mother Alcohol/Drug Paternal Grandfather Breast Cancer Paternal Grandmother SOCIAL HISTORY: -Lives in [place], [place] -Patient lives alone? -Vocation: -Education: -Cigarette, alcohol, substance use: -Functional status: -Patient driving? Review of Systems VITAL SIGNS: BP (!) 122/22 (BP Site: Right Arm, BP Position: Sitting, BP Cuff Size: Regular Adult) Pulse 77 Resp 19 Ht 152.4 cm (5') Wt 50.3 kg (111 lb) SpO2 100% BMI 21.68 kg/m General Examination: General Exam Neurological Exam Reflexes Deep tendon reflexes graded by [facility] IMPRESSION: Episodes of unclear etiology. Differential includes epilepsy vs PNES. Needs a diagnostic VEEG to clarify given high burden and risk of injury (already admitted to ICU and fallen off stairs). Classification Summary PLAN: diagnostic VEEG Data reviewed as above including: outside records, electronic medical record Testing Ordered Diagnostic epilepsy monitoring unit admission (see separate abstract on this date) Education The following issues were discussed with the patient on this visit and written instructions provided as below- Seizure precautions and safety, seizure first aide, when to seek emergency care. Counseling was provided to the patient that missed medications, addition of some new medications, use of alcohol or other substances, and sleep deprivation can lower the seizure threshold. Patient was advised to not drive until released by a physician. Patient was given my clinic contact information. Medical Management Continue current medications. Prescriptions not needed at this time. The possibility of serious and adverse reactions were discussed in detail as well as proper use of medication. I discussed that not taking this medication as directed could worsen seizures and can be dangerous. I discussed the risks, benefits and alternatives of the medical plan with the patient. Questions were answered. The patient agreed with the plan as discussed. FOLLOW-UP: No follow-ups on file. I spent a total of 60 minutes on the date of the service which included: preparing to see the patient [id number] patient care completing clinical documentation obtaining and/or reviewing separately obtained history counseling and educating the patient/family/caregiver ordering medications, tests, or procedures Laury Magaña MD cc: Primary Care Physician: Siobhan Evangelista MD, MD [address] [facility] [place] [address] Referring: Ortega Natarajan [address] [place] [id number] Patient: Ms. Pastor Heller [address] [address] Please route this encounter to the EMU Scheduling Pool ( P EMU ) or PMU Scheduling Pool ( P PMU ) through LOS & Follow up PHASE 1.0 AND 1.5 ORDER SYNOPSIS Patient: Pastor Heller ([id number]) Best contact number: [phone] Insurance: Payor: [place] / Plan: [facility] HMO / Product Type: HMO / Scheduling Team: Please call for adult patients: Emily Juarez ([phone]) Catrachito Julien ([phone]) Janae Connelly([phone]) Albania Blanc([phone]) Please call for pediatric patients: Catrachito Julien ([phone]) Janae Connelly ([phone]) Emily Juarez ([phone]) Albania Blanc([phone]) 03/25/2022 Admission Type EMU Adult Number of Days requested 4 Location [facility] [place] Admit Priority Routine PURPOSE 03/25/2022 Patient Being Considered for Epilepsy Surgery? No VEEG recommended to assess seizure burden, address new & concerning syymptom-sign complex, and/or clarify syndromic epilepsy diagnosis? No 03/25/2022 Sphenoidal monitoring No Electrode placement Standard Appointments and Tests PRE-PROCEDURE & PRE-OPERATIVE COVID (AMB COVID PRE-PROCEDURE TESTING PANEL) EPIL VEEG ADMIT TO EMU/PMU Consultations CONSULT TO NEUROLOGY Please route this encounter to the EMU Scheduling pool ( P EMU ) or PMU Scheduling pool ( P PMU ) through LOS & Follow up Scheduling coordinators: For all VNS patients being scheduled for [facility], please schedule VNS off/on office visits. documented in this encounter [facility] 03-06-2022 History of Presen t illness Narrative UNIVERSAL PROTOCOL / SAFETY CHECKLIST Procedure to be performed: [facility]: TILT Sign in Communication: Completed Time Out: Team Confirms the Correct Patient, Correct Procedure, Correct Site and Site Marking, Correct Position (if applicable). Time: 10:33 STAFF: Dr. Carl Mijares MD Affirmation of Time Out: N/A Sign Out Discussion: Completed Stephanie Shields RN Orders placed 01/09/[address] Sabiha Pavon MD Allergies: Adhesive Tape-Silicones, Bactrim [Sulfamethoxazole-Trimethoprim], and Sulfa (Sulfonamide Antibiotics) Test done in consult with Dr. Sabiha Pavon MD. Procedure Start Time: 10:35 Height 149.9 cm Weight 52.5 kg Patient fasting for 4 hours: Yes Support stockings taken off for procedure: Not applicable Pain Assessment: Location: Headache Pain Scale: 4 on a scale from 0-10 Pain Character: throbbing Duration: (How long have you had the pain?) 6 hours Frequency: (How often does the pain occur?) occurs constantly Comfort Measures: Takes medications but none taken today Pacemaker: No IV Placement: by Rosi Garcia RN Baseline: BP 107/72 HR 87 Pre-Max Tilt : 70 degrees 44 min BP 124/71 HR 95 Max Tilt: 70 degrees 45 min BP 128/79 HR 83 Note: Test was stopped due to end of protocol. See Final Report for Diagnosis. IV discontinued at 11:58 by Rosi Garcia RN . Staff involved in procedure: Stephanie Shields RN; Rosi Garcia RN Procedure Finish Time: 12:01 documented in this encounter [facility] 02-27-2022 Miscellaneous Notes Patient questioning driving restrictions timeframe. Cata Leigh RN documented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 will be handling your phone calls and inquiries, if any. Unless explicitly told otherwise at the time of your office visit, your study results and ensuing treatment plans will be discussed during your follow-up appointment. If you do not have a follow-up appointment and wish to discuss any issues directly with me, please feel free to obtain one. 3. It is my practice to not fill disability or any other insurance-related forms/documention. All of the office notes, study results, and other pertinent documentation generated as part of your evaluation will be available to you and to your Primary Care Physician (PCP). Use of this material to complete such forms will be at the discretion of your PCP/referring physician documented in this encounter [facility] 01-27-2022 Miscellaneous Notes Pt called tilt office with questions regarding tilt table test. Pt asking if she could have the test done locally. Tilt test was ordered by Dr Pavon so I referred pt to call and discuss with ordering physician. Provided patient with phone number for Dr Pavon's office. Pt also asked about discontinuing medications prior to the tilt test and I advised her to discuss this with Dr Pavon as well. documented in this encounter [facility] 01-22-2022 History of Presen t illness Narrative Seen via VV with permission CC Admitted to [facility] this am at 3:15 Lost feeling in arms and legs, mostly recovered except LUE LOC at work twice and awoke in ambulance on the way to the hosp No precipitating event, was sitting at desk, but bent all the way forward to rest head on her hands on the desk Syncope when she arose again Just prior ringing in the ears and tachycardia Also reports N/T hands and feet (BP remains stable) AP I spoke to her attending Neurologist Dr Hodgson We are working towards a diagnosis Her Beighton score is 6/9, she may have associated dysautonomia Her Clivo -axial angle is 122 degrees Normal above 135 with flexion) I would like to avoid O-C fusion but she is wiling to go ahead if needed WE are planning Vasc study MRA per Neurology and CT C spine with rotation to check for instability She understands and agrees I spent 20 mins reviewing her chart and discussing a plan of care Winter Rojo MD documented in this encounter [facility] 01-21-2022 Miscellaneous Notes Received a call from patient's significant other. Gavin states that Patient had a syncopal episode and can no longer move from the neck down. He states that EMS was called and patient is en route to [facility]. This RN reviewed with Gavin the protocol for transfer- The Ed physician would need to contact the transfer line at [facility]. Gavin verbalized understanding and requested that pt's appointment be changed to Virtual Visit. This RN stated that the appointment tomorrow will be changed to virtual visit. Gavin requested that his number be called if pt could not connect to the visit. He was appreciative of call. Gavin: [phone] documented in this encounter [facility] 01-20-2022 Miscellaneous Notes Called and spoke with patient via phone. Notified patient that Dr. Rojo is unable to see pt at 7:00am on 01/23/22 virtually. Offered patient alternate appointment the day before- 3:15pm on 01/22/22 in-person. Patient accepted new appointment time and was appreciative of call. Maday in scheduling notified and appointment changed accordingly. documented in this encounter [facility] 01-09-2022 History of Presen t illness Narrative INITIAL CONSULT - HEADACHE MEDICINE SERVICE DATE: 01/09/22 Location: [facility] neurological [place] Participants: patient and provider Requesting Provider: Member Name Role and Specialty Contact Info Address Comments Siobhan Evangelista MD Referring [address] [id number] - Recommendations of care will be communicated by shared medical record. Subjective HPI: Pastor Heller is a 31 year old female from with a chief complaint of syncope. She has had these syncope since April 2021(COVID infection) but are becoming more frequent in the last few months- approximately once per week. Chronological description of syncope events: Right occipital, travels up, then whole head throbbing Tinnitus, humm Black spots Heart racing Whole body tingling LOC for up to 3 minutes. With and without collapse Syncope tests done so far(non-contributory): Holter for 30 days EEG MRI brain Current Outpatient Medications Medication Sig NURTEC ODT 75 mg disintegrating tablet DISSOLVE 1 TABLET BY MOUTH ONCE DAILY fludrocortisone (FLORINEF) 0.1 mg tablet Take 0.1 mg by mouth three times daily. gabapentin (NEURONTIN) 300 mg capsule Take 300 mg by mouth three times daily. OXcarbazepine (TRILEPTAL) 150 mg tablet Take 150 mg by mouth twice daily. metoprolol succinate ER (TOPROL XL) 25 mg 24 hr tablet Take 25 mg by mouth once daily. HYDROcodone-acetaminophen (NORCO) 5-325 mg per tablet Take 1 tablet by mouth every 8 hours as needed for pain. acetaminophen 325 mg-caffeine 40 mg-butalbital 50 mg (FIORICET) per tablet Take 1 tablet by mouth three times daily. pantoprazole DR (PROTONIX) 40 mg tablet Take 40 mg by mouth once daily. tiZANidine (ZANAFLEX) 4 mg tablet Take 4 mg by mouth daily at bedtime. No current facility-administered medications for this visit. 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 HEENT: no nose bleeds or other nasal problems. NECK: Negative for stiffness, lumps or significant neck swelling RESPIRATORY: Negative for cough, wheezing or respiratory distress. CARDIOVASCULAR: Negative for chest pain, syncope, lightheadness or heart racing. GI: Negative for abdominal discomfort, blood in stools or black stools or change in bowel habits : No history of dysuria, frequency or incontinence MUSCULOSKELETAL: Negative for joint pain or swelling, back pain or muscle pain. SKIN: Negative for lesions, rash, and itching. NEURO: See HPI PHYSICAL EXAM: BP 117/76 Pulse 78 Ht 147.3 cm (4' 10 ) Wt 52.6 kg (116 lb) BMI 24.24 kg/m Mental Status: alert, oriented to person, place and time and follows commands. Funduscopic exam: no papilledema, flat disc Cranial Nerves: CNII: visual corona full to confrontation CNIII, IV, : Pupils equal, round and reactive to light, full extraocular movements without nystagmus CN V: Facial sensation intact bilaterally to fine touch CN VII: Facial muscles symmetric and strong CN VIII: Hears finger rub well bilaterally CN IX: Gag Reflex Intact CN X: Palate elevates symmetrically CN XI: Full strength shoulder shrug bilaterally CN XII: Tongue protrusion full and midline Motor Exam: Tone is normal throughout, normal bulk, no muscle atrophy. 5/5 strength throughout, no drift in upper and lower extremities. Reflexes: symmetric bilaterally Sensation: Intact to light touch in upper and lower extremities. Coordination: finger-to- nose intact bilaterally. Gait: Patient's gait is normal. Impression/Recommendations - Post COVID syndrome. All her symptoms started after COVID infection in April. - Post COVID chronic headache - Post COVID syncope: will try to rule out POTS - EXAM: Right FTN dysmetria on. Sensory loss to light touch on 3 divisions of right face, right arm and leg. Right hip flexion 4+/5 RECS: Syncope: -2 hr EEG pending locally -[place] driving restrictions discussed(has 1.5-2 minute warning. No driving on major highways) -Secondary syncope precautions discussed - tilt table test. If contributory then I will refer her to a POTS provider. If not contributory I will refer her to syncope clinic. - continue Florinef for now 2. Headaches as per her local neurologist. I suggested to stop Fioricet use 3. Referral to [facility] recovery clinic SIGNATURE: Sabiha Pavon MD PATIENT NAME: Pastor eHller DATE: January 09, 2022 TIME: 9:24 AM documented in this encounter [facility] 12-30-2021 Instructions Lencho Unger RN - 12/30/2021 9:16 AM EDT Plan: Provide CT brain scan images Utilize isometric exercises for the neck with PT Follow up with neurologist to complete work up Follow up with Dr. Rojo in [place] after a few weeks of PT with isometrric exercises. We have received the reports from your CT brain imaging. However, we have not received the actual pictures. There are a few ways you can send us the actual images: 1.You can contact your imaging location and ask them to push the images through to the [facility] via the PACs system if they have access. 2.You can mail a physical CD of the images to our office using the following address: Dr. Rojo's Office [address] [facility]. / [address] [address] 3. You can upload a CD from home onto your MyChart by following the directions below: IMAGING CD/UPLOAD INSTRUCTIONS: You will be able to upload the CD from home by following the instructions of below link: [email or web address] If you have any questions or need further assistance in uploading the CD , please contact us via email at . Please let us know if you need anything further. Thank you! documented in this encounter [facility] 12-30-2021 History of Presen t illness Narrative This note was created using [employer]. Subjective Pastor Heller is a 31 year old female. with a hx of migraines, depression, who presents today for a new patient evaluation of chiari. She has a long history of migraines, but started to develop a new type of headache about a year ago. She denies any trauma or inciting events. She initially managed these on her own. [place] it may be related to the way she was sleeping. The headaches have been worsening and she also started to develop issues with speech difficulties and UE and LE paresthesias so she went to her PCP in 04/2021. She did contract covid around this time as well. PCP initially managed conservatively. Due to persistent symptoms she had the mri revealing the chiari. She was seen by a neurologist 3 weeks ago. He started her on topamax however her symptoms have worsened. Headaches, paresthesias, speech difficulties have worsened. She has also started PT, but this also has not helped. Will be going back to neurology in October. She has started fioricet with some help with the headaches. She notes her most bothersome symptom is a constant R occipital pressure headache. It is worsened by coughing, sneezing, bending forward, sudden movements, turning her head to the R. Headache remain worse for hours. She takes tylenol and excedrine with some help. She takes OTC meds almost daily for the past 4 months. At baseline her headache is a 4/10, with valsalva goes up to 8-9/10. Her next most bothersome symptom is speech difficulties. Seems to be since 02/2021. Seems to be a speech expression difficulty, can think of the words but cannot get them out. She also notes tingling paresthesias and loss of hat checker strength in her b/l hands since 04/2021. Tingling is in entire b/l UEs and LEs. Seems to present randomly. She also notes SOB, since 04/2021. Seems to be more with activities. Walking up the stairs, talking. She denies any chest pain. She also notes dizziness with positional changes and with valsalva and worsened headaches. Migraines were managed in the past by PCP. Used a disolvable abortificant. Last migraine was about 7 months ago.She acknowledges some mild dysphagia with food and liquids since 04/2021.Gets some spots in her vision with worse headaches. Last Saw her eye doc 3 months ago. They dilated her eyes, no papilledema. Feels a generalized weakness as well.Has had a weight loss since April 2021 and has had issues with constipation since her hysterotomy. She deny any other UE or LE pain/paresthesias/weakness, loss of pain/temperature sensation, or gait imbalance. . 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 At her ALONSO with Dr. Rojo, a CT and CS XR were ordered with PT for postural correction and neck strengthening. Today patient presents to the clinic with her boyfriend. Patient states that she wakes up with a throbbing headache each day that will dissipate throughout the day. She states that she has had 6 syncopal episodes since she had started PT. At that time, the physical therapist changed her regiment to stretching only to help prevent syncopal episodes. The stre Patient states that her syncopal episodes are becoming more frequent- approximately once per week. Patient states that she did a multi week surveillance system monitor that demonstrated tachycardia.She has also had an echo recently. She has 'head rushes' when she stands up, and now has visual changes where her vision looks 'tingly' on a regular basis. Review of Systems Eyes: Positive for visual disturbance. Neurological: Positive for dizziness, syncope, numbness (on back and right leg) and headaches. Negative for seizures. Objective There were no vitals taken for this visit. Physical Exam Assessment and Plan Tonsillar descent 5-7 mm CXA 122 degrees Occipital cervical instability Hx of migraines I get spells with severe pain back of head Word finding difficulty when pain hits, very severe Dizzy spells when bending over Occasional N/T arms and legs Beighton Score 6/9 MRI [facility] 09/2021 reviewed 5 mm tonsillar descent with minimal crowding at foramen magnum Possible os odontoideum (will order CT to evaluate) CXA 122 degrees (changes from 130-150 on flexion extension XR) Hypoplastic clivus No abn T and L spine No syringomyelia Risks, Benefits, and alternatives of OC fusion reviewed and discussed. Plan: Provide CT brain scan images Utilize isometric exercises for the neck with PT Follow up with neurologist to complete work up Follow up with Dr. Rojo in [place] after a few weeks of PT with isometrric exercises. Pt seen and examined by Dr. Rojo. All recommendations initiated by Dr. Rojo. Portions of this visit have been documented by Lencho GUNTER, RN Winter Rojo MD documented in this encounter [facility] 12-30-2021 Nurse Note Additional intake questions: Has the patient had fever, nausea, vomiting, diarrhea, constipation, fatigue for > 1 week? No Does the patient have a decreased appetite? No Does patient want to see a Picking Crew Supervisor? No (yes to any of above refer patient to schedulers for dietitian appointment) ) Does patient have any new or increased numbness or tingling of extremities? No Is patient interested in fertility information? No Does patient need any prescription refills? No Does patient have an advanced directive in place? No, Patient refused referral to Social Work or Resource Center Electronically Signed By: Monserrat Christian Ma documented in this encounter [facility] 12-12-2021 Progress note Note Date/Time December 12, 2021 3:15pm [facility] [address] [place] [address] Neurology Progress Note Signed Patient: Pastor Heller MR#: [id number] : 1990 Acct:[id number] Age/Sex: 31 / F Adm Date: 2 Loc: Room: [address] [place] [address] Type: ADM INOo Attending Dr: Padmini Moreno DO Copies to: ~ Date of Service: 12/12/2021 Exam Physical Exam Vital Signs: Temp Pulse Resp BP Pulse Ox O2 Del Method 98.0 F 94 H 20 146/84 H 98 Room Air 12/12/21 13:13 12/12/21 13:13 12/12/21 13:13 12/12/21 13:13 12/12/21 13:13 12/12/21 13:13 Objective Vital Signs Vital Signs: Vital Signs - 24 hr 12/11/21 15:52 12/11/21 18:26 12/11/21 19:35 Temperature 97.6 F 97.6 F Pulse Rate 77 93 H 81 Respiratory Rate 18 20 18 Blood Pressure 118/80 108/68 112/72 02 Sat by Pulse Oximetry 100 98 97 Oxygen Delivery Method Room Air Room Air Room Air 12/11/21 19:41 12/12/21 04:00 12/12/21 04:00 Temperature Pulse Rate Respiratory Rate 18 Blood Pressure 02 Sat by Pulse Oximetry Oxygen Delivery Method Room Air Room Air 12/12/21 08:00 12/12/21 08:00 12/12/21 13:13 Temperature 98.4 F 98.0 F Pulse Rate 86 94 H Respiratory Rate 20 20 Blood Pressure 121/78 146/84 H 02 Sat by Pulse Oximetry 97 98 Oxygen Delivery Method Room Air Room Air Room Air Labs CBC & Chem 7: 12/11/21 01:57 12/11/21 01:57 Assessment/Plan (1) Syncopal episodes: Assessment/Problem Details: SUBJECTIVE: No overnight events. Her head pain feels much better today compared to yesterday. She is able to move around and be upright without the severe pain. She tolerated the gabapentin. She had her MRI study and CSF flow study. She was seen by cardiology. They also would consider POTS. She is being screened for pheochromocytoma. No new symptoms to add to review of systems. EXAMINATION: Well-kempt. In no distress. Limbs seem well-perfused. No significant edema. Normal work of breathing. Visualized skin is intact and without lesions. Affectis normal. She is alert. She is oriented. Attention is normal. Speech is fluent and nondysarthric. Pupils are equal and reactive. Ocular motility is full. Facial sensation is reduced on the right to pinprick. Hearing sensation is normal. Facial strength is normal. Muscle bulk, tone, and strength are normal. No tremulousness. Reflexes diffusely hyperactive with bilateral Gwen signs and a few beats of nonsustained ankle clonus bilaterally. Light touch is normal. Vibratory sensation and pinprick are both mildly reduced in the right hemibody. Additionally, pinprick does seem reduced in a so-called cape like distribution. No apparent limb ataxia. ASSESSMENT: 1. Recurrent syncope. Syncopal events associated with severe headaches and tachycardia. Typically occurring when upright. Consider #2. Consider POTS syndrome. Do not suspect seizures; routine EEG unremarkable. 2. Chiari I malformation. Right cerebellar tonsillar protrusion of 9 mm to theforamen magnum (left is only 2 mm). CSF flow study on the MRI shows no obstruction of CSF flow. Hard to say if this could be the cause for #1.She has a small amount of odontoid retroflexion that further crowds the superiormost cervical intraspinal space. 3. I suspect some of her headaches are occipital neuralgia, evidenced by the pain distribution and the scalp hyperesthesia/allodynia. PLAN: 1. Increase gabapentin from 100 mg 3 times daily to 300 mg 3 times daily; continue after discharge 2. Decrease oxcarbazepine from 300 mg twice daily to 150 mg twice daily; continue after discharge 3. Follow-up with Dr. Rojo on December 30, 2021. She will get her MRI images put on disc to take with her. 4. No other recommendations at this time in the inpatient setting and can be discharged from my standpoint 5. Strong consideration for occipital nerve blocks in neurology clinic Code(s): R55 - Syncope and collapse Status: Acute (2) Chiari I malformation: Code(s): G93.5 - Compression of brain Status: Acute Documented By: Gavin Lacey DO 12/12/21 1515 Signed By: <Electronically signed by Gavin Lacey DO> 12/12/21 1530 [facility] Work Phone: 1(675) 265-726509-01-2022 History and physical note Author Padmini Moreno [facility] December 11, 2021 9:01pm Note Date/Time December 11, 2021 2:07am [facility] [address] [place] [address] Hospitalist H&P Signed with Addenda Patient: Pastor Heller MR#: [id number] : 1990 Acct:[id number] Age/Sex: 31 / F Adm Date: 2 Loc: Room: [address] [place] [address] Type: ADM INOo Attending Dr: Padmini Moreno DO Copies to: MD Sirena Giraldo APRN Margo Simon, DO~ ADDENDUM1 Patient seen and examined. She was admitted after midnight as a transfer from [facility] d/t syncopal episode with associated prodrome of severe headache. Shehas had multiple syncopal episodes. Monitoring on telemetry showing mild sinus tachycardia. No SVT. No recorded elevations in blood pressure. Cardiology saw the patient is concerned about pheochromocytoma due to associated headache and sinus tach. Can check 24-hour urine metanephrines, serum metanephrines. Duringexam she c/o of generalized dull headache. Migraine cocktail was ordered pending neurology evaluation. Additional history includes history of Chiari I malformation. MRI is pending, EEG is pending. Cardiology is recommending pheochromocytoma evaluation and beta-shilpi, however in the absence of sinus tach would hold off on beta- shilpi to reduce assay interference. POTS also considered. Would need tilt table testing as outpatient once studies been completed. Padmini Moreno DO Addendum Documented By: Padmini Moreno DO 12/11/212100 Addendum Signed By: <Electronically signed by Padmini Moreno DO> 12/11/212100 HPI DATE OF EXAMINATION: 12/11/21 CHIEF COMPLAINT: syncope HISTORY OF PRESENT ILLNESS: Patient is a 31-year-old female with a past medical history of Migraines, COVID- 19 who was transferred from [facility] due to syncopal episode. Patient reports that she was at work today when she felt her heart racing, she had a headache just before the incident, when she found herself sitting on the floor with her head between her legs. She does not recall sitting down, her last recollection was of her standing by her office door. When she was fully aware she felt confused with some chest discomfort and mild shortness of breath. She reports that her heart rate was in the 130s. Patient reports that this is the eighth episode of these syncopal episodes, which started 3 months ago. She further describes that they are always preceded by a headache and a fast heart rate. She was seen by press maintainer and is wearing a Holter monitor since 3 weeks ago. She also reports that since testing COVID-positive in April she is experiencedshortness of breath which is made worse with activity. Paperwork from [facility] was reviewed, sodium 137. Potassium 3.3. WBC 9.0. Glucose 134. TSH 0.65. T4 free 0.72. D-dimer <150. Urine noninfectious. COVID-19 negative. Patient will be admitted by the hospitalist team for furtherevaluation and treatment. Review of Systems Review of Systems Review of systems: 10 point review of systems obtained, negative unless noted in the HPI below PMFSH Attestation Statement: The following information was validated with the patient. Vaccinated for COVID-19?: Unknown Medical History (Updated 12/11/21 @ 02:50 by Lisa Bermudez, RN) CRUZ (acute kidney injury) COVID-19 Migraine Surgical History (Updated 12/11/21 @ 02:49 by Lisa Bermudez, RN) History of hysterectomy History of lithotripsy Family History Mother Kidney stones Father Autoimmune disease Meds Medications and Allergies Allergies Sulfa (Sulfonamide Antibiotics) Allergy (Verified 12/11/21 02:10) Hives sulfamethoxazole [From Bactrim] Allergy (Verified 12/11/21 02:10) Hives trimethoprim [From Bactrim] Allergy (Verified 12/11/21 02:10) Hives Home Medications hydrocodone 5 mg-acetaminophen 325 mg tablet 1 tab PO Q6H PRN Pain 12/11/21 [History Confirmed 12/11/21] oxcarbazepine 300 mg tablet 300 mg PO BID 12/11/21 [History Confirmed 12/11/21] pantoprazole 40 mg tablet,delayed release 40 mg PO DAILY 12/11/21 [History Confirmed 12/11/21] tizanidine 4 mg tablet 4 mg PO HS 12/11/21 [History Confirmed 12/11/21] Exam Physical Exam Narrative: CONST- Appears well -developed and well nourished No acute distress. HEAD - Normocephalic and atraumatic EENT-Sclera nonicteric and conjunctive are nonerythemic, moist oral mucosa, pharynx clear NECK-Supple, no cervical lymphadenopathy CARDIAC-normal rate, regular rhythm, normal S1 & S2. PULM- Clear without wheeze or rhonchi, RA, no accessory muscle use or cough noted ABD - Soft. Bowel sounds are normal. No distention No tenderness EXTREM-no edema BLE calves nontender SKIN- W/D good turgor MS- MAEX4 spontaneously with equal with equal strength NEURO- A&Ox3 speech clear and tongue midline, equal facial symmetry no focal motor deficits PSYCH-Mood, affect and behavior appropriate A&P - Hospitalist Assessment/Plan (1) Syncopal episodes: Plan: Syncopal episode versus seizure-presented from primary care with a syncopal episode, she has had multiple episodes since September and is currently wearing a Holter monitor since 3 weeks ago. Episodes preceded by headaches and tachycardia, possible seizure activity. She also has had shortness of breath which is worsened by exertion since she had COVID in April ?EKG done at [facility] showed up sinus tachycardia with a heart rate of 153 bpm. Repeat EKG here shows normal sinus rhythm 90 bpm. ?CT brain done at [facility] last last week, records requested ?Echocardiogram done 2 weeks ago at [facility], records requested ?Telemetry ?Orthostatic vitals ?D-dimer done at [facility] <150 ?Cardiology consulted ?Neurology consult Chronic conditions Migraines Chronic pain DVT prophylaxis: Negra Attending Provider Attestation Attending Physician Attestation: I personally saw this patient on the day of the encounter, reviewed the history,performed the álvarez elements of the exam, formulated the plan of care and confirmed the resident's/web design intern/medical student's dictation/written note. Patient is 31-year-old female with history of migraines who has been having syncopal episodes, the patient follow-up with her neurologist who recommended for her to have a Holter monitor which has been having for the last 3 weeks, thepatient has not had a chance to follow-up with cardiology, the patient today hada syncopal episode and she was seen at an ER in an outside facility where the patient was noted sinus tachycardia with CBC, CMP and vital signs, patient stated that every time she about to have a syncopal episode she feels like her heartis racing, here her ECG is NSR with no concerning changes, will check orthostatics. most likely her symptoms are due to SVT, patient will be admitted to the hospital for observation for cardiology and neurology consult as requested by the other facility. Documented By: Sirena Navarro APRN 12/11/21 0206 Signed By: <Electronically signed by WILIAN Navarro> 12/11/21 0234 <Electronically signed by Stanislav Gottlieb MD> 12/11/21309 [facility] Work Phone: [phone] 233-167409-01-2022 Consult note Author Braden Ga [facility] December 11, 2021 5:30pm Note Date/Time December 11, 2021 5:30pm [facility] [address] [place] [address] Cardiology Consult Note Signed Patient: Pastor Heller MR#: [id number] : 1990 Acct:[id number] Age/Sex: 31 / F Adm Date: 2 Loc: Room: [address] [place] [address] Type: ADM INOo Attending Dr: Padmini Moreno DO Copies to: MD Braden Giraldo MD, [facility] Padmini Moreno DO~ Cardiology HPI History of Present Illness Consult Date: 12/11/21 Reason for Consult: Syncope HPI: Ms. 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 For several weeks she has been experiencing events of syncope preceded by severe migraine headache followed by tachycardia and then syncope. She has been evaluated by cardiology from [facility] and wore 3-week event monitor that was removed today. She has experience of events in the last 3 weeks but was never notified with abnormalities. She had an event yesterday where she had a classical presentation and was transferred to [facility] from [facility] facility due to bed availability. The patient did not suffer any injury. She described her events are unpredictable and under no specific circumstances. And she can always tell when the events are coming. She had only minor injury 1 time after syncope. She has been seen by Dr. Garcia from neurology and also [facility] for suspected C1 problems no neck. She does have Chiaridisorder. Patient has no other significant medical problems of noticed. While she is being monitored since admission she has had multiple events of spontaneous sinus tachycardia that start in and suddenly. She described these events being associated with feeling warm all over and palpitations. At times she has hypertension. This constellation of events raises concern for pheochromocytoma which I discussed with the patient and the need to bring it up to her team from [facility] for evaluation. I did review with the patient the rhythm strips that he captured here. There was no SVT no atrial fibrillation flutter. The patient was advised to go on beta-shilpi therapy as she waits forfurther work-up from her primary press maintainer at [facility]. Recently had an echocardiogram which was unremarkable she tells me. She is non-smoker with no alcohol abuse problems no drug abuse problems Review of Systems Review of Systems Review of systems: 11 point review of system otherwise [facility] Vacc[facility] for [facility]-19?: Yes Medical History (Updated 12/11/21 @ 17:29 by Braden Ga MD) CRUZ (acute kidney injury) COVID-19 Migraine Surgical History (Updated 12/11/21 @ 02:49 by Lisa Bermudez RN) History of hysterectomy History of lithotripsy Family History Mother Kidney stones Father Autoimmune disease Social History Smoking Status: Former smoker Tobacco Type: cigarettes Substance Use Type: None Meds Medications and Allergies Allergies Sulfa (Sulfonamide Antibiotics) Allergy (Verified 12/11/21 02:10) Hives sulfamethoxazole [From Bactrim] Allergy (Verified 12/11/21 02:10) Hives trimethoprim [From Bactrim] Allergy (Verified 12/11/21 02:10) Hives Home Medications hydrocodone 5 mg-acetaminophen 325 mg tablet 1 tab PO Q6H PRN Pain 12/11/21 [History Confirmed 12/11/21] oxcarbazepine 300 mg tablet 300 mg PO BID 12/11/21 [History Confirmed 12/11/21] pantoprazole 40 mg tablet,delayed release 40 mg PO DAILY 12/11/21 [History Confirmed 12/11/21] tizanidine 4 mg tablet 4 mg PO HS 12/11/21 [History Confirmed 12/11/21] Exam Physical Exam Vital Signs: Temp Pulse Resp BP Pulse Ox O2 Del Method 97.6 F 77 18 118/80 100 Room Air 12/11/21 15:52 12/11/21 15:52 12/11/21 15:52 12/11/21 15:52 12/11/21 15:52 12/11/21 15:52 Const General: healthy appearing, comfortable and no acute distress Nutritional Appearance: average body habitus Orientation: alert, awake and oriented x3 HEENT Head: normal to inspection, normocephalic and atraumatic Ears: hearing grossly normal bilaterally Nose: external nose normal Face and sinus: normal facial exam Eyes General: appearance normal, both eyes and all related structures Conjunctivae: conjunctivae normal Pupils: PERRL Neck Neck: normal visual inspection, full ROM, no lymphadenopathy and supple Neck mass: No Thyroid: thyroid normal Carotids: normal carotid upstroke Resp Effort & Inspection: normal respiratory effort Auscultation: clear to auscultation bilaterally Cardio Jugular venous pressure: no JVD Palpation: normal PMI Rate: regular rate Rhythm: regular rhythm Heart Sounds: S1 normal and S2 normal GI Inspection: normal to inspection Palpation: soft and no hepatosplenomegaly Auscultation: normal bowel sounds Extrem General: normal to inspection and no clubbing, cyanosis or edema Results Labs CBC & CMP: 12/11/21 01:57 12/11/21 01:57 Lab results: CBC 12/11/21 Range/Units 01:57 RBC 3.79 (3.60-5.00) x10E6/uL Hgb 11.7 L (11.8-15.4) g/dL Hct 35.7 (34.0-46.4) % Plt Count 221 (150-450) x10E3/uL Neut # (Auto) 6.7 (1.8-7.7) x10E3/uL Lymph # (Auto) 2.5 (1.00-4.8) x10E3/uL Hudson # (Auto) 0.8 (0.0-0.8) x10E3/uL Eos # (Auto) 0.4 (0.0-0.45) x10E3/uL Baso # (Auto) 0.0 (0.0-0.2) x10E3/uL Comprehensive Metabolic Panel 12/11/21 Range/Units 01:57 Sodium 137 (136-146) mmol/L Potassium 4.0 (3.5-5.1) mmol/L Chloride 108 (95-114) mmol/L Carbon Dioxide 22.2 (22.0-30.0) mmol/L BUN 13 (9-23) mg/dL Creatinine 0.72 (0.44-1.03) mg/dL Glucose 93 (70-100) mg/dL Calcium 8.5 (8.2-10.2) mg/dL Intake and Output 12/11/21 12/11/21 12/11/21 07:59 15:59 23:59 Intake Total 240 / 590 350 / 590 Balance 240 / 590 350 / 590 Intake: IV 100 / 100 Magnesium Sulfate 1 gm-*D5w* 1 100 / 100 gm In 100 ml @ 100 mls/hr IV ONCE ONE Rx#:[id number] Oral 240 / 490 250 / 490 Other: # Unmeasured Voids 2 2 # Bowel Movements 0 0 Weight 59.2 kg Date of Last Bowel Movement 12/09/21 12/09/21 Patient Weight 12/11/21 23:59 Weight 59.2 kg A&P - Cardiology (1) Syncopal episodes: Assessment/Problem Details: Some element of the patient presentation is suggestive of POTS syndrome Plan: Beta-shilpi therapy is recommended Code(s): R55 - Syncope and collapse (2) Sinus tachycardia: Assessment/Problem Details: This is episodic and at times it is associated with hypertension. one has to worry about pheochromocytoma which I think need to be evaluated as an [facility] Code(s): R00.0 - Tachycardia, unspecified (3) Episode of hypertension: Assessment/Problem Details: Could be related to pheochromocytoma in conjunction with sinus tachycardia that is also episodic. Plan: Consider outpatient pheochromocytoma work-up Code(s): I10 - Essential (primary) hypertension Documented By: Braden Ga MD, [facility] 2 1715 Signed By: <Electronically signed by [facility] Braden Ga> 12/11/21 8792 [facility] Work Phone: [phone] 241-252009-01-2022 Consult note Author Gavin Lacey [facility] December 11, 2021 3:46pm Note Date/Time December 11, 2021 3:46pm [facility] [address] [place] [address] Neurology Consult Note Signed Patient: Pastor Heller MR#: [id number] : 1990 Acct:[id number] Age/Sex: 31 / F Adm Date: 2 Loc: Room: [address] [place] [address] Type: ADM INOo Attending Dr: Padmini Moreno DO Copies to: DO Siobhan Norwood MD Margo Simon, DO~ HPI Consult Date: 12/11/21 Woodworking Machine Feeder: Gavin Lacey DO [facility] Vaccinated for COVID-19?: Yes Medical History (Updated 12/11/21 @ 15:26 by Gavin Lacey DO) CRUZ (acute kidney injury) COVID-19 Migraine Surgical History (Updated 12/11/21 @ 02:49 by Lisa Bermudez RN) History of hysterectomy History of lithotripsy Family History Mother Kidney stones Father Autoimmune disease Social History Smoking Status: Former smoker Tobacco Type: cigarettes Substance Use Type: None Meds Medications and Allergies Allergies Sulfa (Sulfonamide Antibiotics) Allergy (Verified 12/11/21 02:10) Hives sulfamethoxazole [From Bactrim] Allergy (Verified 12/11/21 02:10) Hives trimethoprim [From Bactrim] Allergy (Verified 12/11/21 02:10) Hives Home Medications hydrocodone 5 mg-acetaminophen 325 mg tablet 1 tab PO Q6H PRN Pain 12/11/21 [History Confirmed 12/11/21] oxcarbazepine 300 mg tablet 300 mg PO BID 12/11/21 [History Confirmed 12/11/21] pantoprazole 40 mg tablet,delayed release 40 mg PO DAILY 12/11/21 [History Confirmed 12/11/21] tizanidine 4 mg tablet 4 mg PO HS 12/11/21 [History Confirmed 12/11/21] Exam Physical Exam Vital Signs: Temp Pulse Resp BP Pulse Ox O2 Del Method 97.7 F 101 H 20 136/84 101 H Room Air 12/11/21 11:53 12/11/21 13:54 12/11/21 13:54 12/11/21 13:54 12/11/21 13:54 12/11/21 13:54 Results Laboratory Findings CBC and BMP: 12/11/21 01:57 12/11/21 01:57 Assessment/Plan (1) Syncopal episodes: Assessment/Problem Details: HPI: 31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 Transferredhere for further work-up after a syncopal episode at work. She estimates this koby at least her eighth syncopal episode total. They are usually when she is upright but have occurred in a seated position. They are typically associated with sudden onset of a severe headache arising from the skull base that is throbbing in quality. Then she fairly rapidly will pass out. It takes a while for her to come to. Tachycardia seems to be a common finding with each episode.She has being seen by Dr. Garcia in outpatient neurology clinic. She has alsobeen sent to Dr. Rojo at the [facility] regarding a Chiari I malformation. Aside from the syncopal episodes, she is experiencing nearly constant dull headaches emanating from the skull base and sometimes they can be extreme and she feels the pain spread as far forward as her forehead or hairline. When the pain is intense and she touches the surface of her scalp shegets paresthesias. Pain is better laying down and worse when upright. She said she was told by Dr. Rojo that there is something abnormal about the alignmentof C1 and that it is crowding her upper cervical cord. She feels numbness in herhands. She can feel strange sensations that creep down her neck into her upper extremities. She has been wearing a heart monitor. She was placed on oxcarbazepine 300 mg twice daily [address] Dr. Garcia for the headaches. Aside from headache and sensory changes in arms ROS negative. EXAMINATION: Well-kempt. In no distress when lying supine. In mild distress when seated upright. Limbs seem well-perfused. No significant edema. Normal work of breathing. Visualized skin is intact and without lesions. Affect is normal. She is alert. She is oriented. Attention is normal. Speech is fluent and nondysarthric. Pupils are equal and reactive. Ocular motility is full. Facialsensation is reduced on the right to pinprick. Hearing sensation is normal. Facial strength is normal. Muscle bulk, tone, and strength are normal. No tremulousness. Reflexes diffusely hyperactive with bilateral Gwen signs mary few beats of nonsustained ankle clonus bilaterally. Light touch is normal. Vibratory sensation and pinprick are both mildly reduced in the right hemibody. Additionally, pinprick does seem reduced in a so-called cape like distribution. No apparent limb ataxia. DATA REVIEW: I called the neurology outpatient clinic and was able to verbally get the results of some of her recent MRI studies. She had an MRI of her brain in July2021 that showed bilateral cerebellar tonsillar ectopia that was 9 mm on the right and 4 mm on the left, and she had MRI of her cervical and thoracic spine in September 2021 that appeared relatively unremarkable and there was no mention of asyrinx. All those MR studies were done at the [facility]. ASSESSMENT: She may have a symptomatic Chiari I malformation that serves as the best explanation for most of her symptoms. Intermittent CSF outflow obstruction couldcause headache and syncope. Typically bradycardia would be associated with increased intracranial pressure though, so some consideration could also be given to postural tachycardia syndrome (POTS) or reflex syncope. Her headaches could be directly due to Chiari or could be due to occipital neuralgia given that she has been told she has some issues at C1-C2. I do not suspect seizure koby the cause for the syncope but other physicians have brought this up as a possibility and I suggest we get an EEG just to round out the workup and ensure it looks normal. PLAN: 1. Routine EEG 2. MRI brain without contrast to assess Chiari as well as CSF flow 3. Adding gabapentin 100 mg 3 times daily for what I believe is occipital neuralgia to some extent 4. Can continue the oxcarbazepine 300 mg twice daily though we might try harderwith gabapentin in place of oxcarbazepine entirely 5. She has an upcoming follow-up appointment with Dr. Rojo on December 30, 2021 Code(s): R55 - Syncope and collapse Status: Acute (2) Chiari I malformation: Code(s): G93.5 - Compression of brain Status: Acute Documented By: Gavin Lacey DO 12/11/21 1526 Signed By: <Electronically signed by Gavin Lacey DO> 12/11/21 1546 [facility] Work Phone: [phone]) 594-570806-13-2022 Miscellaneous Notes* Telephone Encounter - Lencho Unger RN - 09/22/2021 10:34 AM EDT Called and spoke with patient via phone. Patient states that she is currently having a flair of chiari symptoms: her posterior headache is increased and unresponsive to tylenol and Excedrine. She states that this happens to her occasionally and the symptoms last for a few days then go away. Patient would like a sooner appointment. Pt is scheduled to be seen on 09/30/21. This RN advised pt to call the schedulers on Wednesday to see if there are any cancellations for this as Dr. Rojo is currently booked until December. This RN also encouraged pt to increase hydration and lay flat with feet elevated to assist with symptoms. Pt verbalized understanding and was appreciative of call. * Telephone Encounter - Rosalina Deacon Pss - 09/22/2021 10:04 AM EDT General Call Caller : Pt Contact Reason for Call : Pt experiencing headaches and dizziness, states her chiari is acting up. Wants toget a sooner appt. Can pt be seen sooner? Patient requesting return call ? Yes [facility] Instructions* Patient Instructions* Samy Spivey PA-C - 09/03/2021 1:51 PM EDT If you do imaging through [facility] please mail imaging to me as below: Samy Spivey PA-C [address] [facility] [address] If you do imaging through [facility], please call me at [phone], option 0 so I can get them loaded. Retroflexed odontoid Please schedule virtual visit with Dr. Winter Rojo. documented in this [facility] History of Present illness Narrative* Samy Spivey PA-C - 09/03/2021 1:00 PM EDT OUTPATIENT ADULT NEUROSURGICAL CONSULTATION Dear Dr Rosales primary care provider on file.: Thank you for your kind referral of Diane Heller for consultation. Diane Heller was evaluated in the adult neurosurgery clinic on 09/03/2021 for the problem of chiari. Although her history is well known to you, please allow me to reiterate it for the purpose of my medical record. Informant: History obtained from patient. Chief Complaint: Headaches. History of Present Illness: Diane Heller is a 30 year old female with a hx of migraines, depression, who presents today for a new patient evaluation of chiari. She has a long history of migraines, but started to develop a new type of headache about a year ago. She denies any trauma or inciting events. She initially managed these on her own. S[place]ents it may be related to the way she was sleeping. The headaches have been worsening and she also started to develop issues with speech difficulties and UE and LE paresthesias so she went to her PCP in 04/2021. She did contract covid around this time as well. PCP initially managed conservatively. Due to persistent symptoms she had the mri revealing the chiari. She was seen by a neurologist 3 weeks ago. He started her on topamax however her symptoms have worsened. Headaches, paresthesias, speech difficulties have worsened. She has also started PT, but this also has not helped. Will be going back to neurology in October. She has started fioricet with some help with the headaches. She notes her most bothersome symptom is a constant R occipital pressure headache. It is worsened by coughing, sneezing, bending forward, sudden movements, turning her head to the R. Headache remain worse for hours. She takes tylenol and excedrine with some help. She takes OTC meds almost daily forthe past 4 months. At baseline her headache is a 4/10, with valsalva goes up to 8-9/10. Her next most bothersome symptom is speech difficulties. Seems to be since 02/2021. Seems to be a speech expression difficulty, can think of the words but cannot get them out. She also notes tingling paresthesias and loss of hat checker strength in her b/l hands since 04/2021. Tingling is in entire b/l UEs and LEs. Seems to present randomly. She also notes SOB, since 04/2021. Seems to be more with activities. Walking up the stairs, talking.She denies any chest pain. She also notes dizziness with positional changes and with valsalva and worsened headaches. Migraines were managed in the past by PCP. Used a disolvable abortificant. Last migraine was about 7 months ago. She acknowledges some mild dysphagia with food and liquids since 04/2021. Gets some spots in her vision with worse headaches. Last Saw her eye doc 3 months ago. They dilatedher eyes, no papilledema. Feels a generalized weakness as well. Has had a weight loss since April 2021. Had has issues with constipation since her hysterotomy. She deny any other UE or LE pain/paresthesias/weakness, loss of pain/temperature sensation, or gaitimbalance. . 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 PAST HISTORY: No past medical history on file. No past surgical history on file. Family History: FAMILY HISTORY Problem Relation Age of Onset Breast Cancer Paternal Grandmother Social History: Social History Tobacco Use Smoking status: Not on file Smokeless tobacco: Not on file Substance Use Topics Alcohol use: Not on file Drug use: Not on file Current Outpatient Medications Medication Sig acetaminophen 325 mg-caffeine 40 mg-butalbital 50 mg (FIORICET) per tablet TAKE 1 TABLET BY MOUTH EVERY 6 HOURS NEEDED FOR MIGRAINE FOR [address] (PROTONIX) 40 mg tablet Take 40 mg by mouth once daily. tiZANidine (ZANAFLEX) 4 mg tablet TAKE 1/2 TO 1 (ONE-HALF TO ONE) TABLET BY MOUTH EVERY DAY AT BEDTIME FOR 30 DAYS topiramate (TOPAMAX) 25 mg tablet Take 25 mg by mouth twice daily. MAGNESIUM ORAL Take 120 mg by mouth. Norgestimate-Ethinyl Estradiol 0.18/0.215/0.25 mg-25 mcg Take 1 tablet by mouth once daily. traZODone (DESYREL) 100 mg tablet Take 50 mg by mouth once daily. SHE TAKES HALF A TABLET DAILY (Patient not taking: Reported on 09/03/2021 ) sertraline (ZOLOFT) 50 mg tablet Take 75 mg by mouth q 12 HR. (Patient not taking: Reported on 09/03/2021 ) tamsulosin ER (FLOMAX) 0.4 mg Take 0.4 mg by mouth as needed. (Patient not taking: Reported on 09/03/2021 ) No current facility-administered medications for this visit. progesterone cream Allergies: ALLERGIES Allergen Reactions Bactrim [Sulfametho* Hives Sulfa (Sulfonamide * Hives Review of Systems: General: See HPI. Head: See HPI Eyes: No vision problems identified. Ears: No hearing problems identified Respiratory: See HPI Cardiovascular: See HPI Gastrointestinal: See HPI Genitourinary: Negative for dysuria or frequency Musculoskeletal: Normal and symmetrical in upper and lower extremities, hx of scoliosis Skin: Negative for lesions, rash, and itching. Psychiatric: H/o depression, resolved Hematology/Lymphology: Negative for prolonged bleeding, bruising easily, and swollen nodes. Endocrine: Sees endocrinology since hysterectomy for progesterone replacement. Neurological: See History of Present Illness PHYSICAL EXAM: BP 125/81 Pulse 82 Resp 20 Ht 147.3 cm (4' 10 ) Wt 52.2 kg (115 lb) SpO2 100% BMI 24.04kg/m General: well-appearing and undistressed woman. She is non-dysmorphic Head: normocephalic,atraumatic Eyes: Eyes are symmetrical and gaze is conjugate Neck: Supple; good ROM. Musculoskeletal: Muscle tone normal in all four limbs without atrophy. Muscle strength 4/5 in R hand hat checker strength and R wrist flex/ex, otherwise 5/5 in both upper and lower extremities Mental status is normal. Neurological: Higher integrative functions: oriented to person, place and time 2nd cranial nerve: full visual corona 3rd, 4th and 6th cranial nerves: PERRL, full extraocular movements 5th cranial nerve: no decrease in facial sensation 7th cranial nerve: facial muscles symmetric and strong 8th cranial nerve: hears finger rub well bilaterally 9th and 10th cranial nerves: spontaneous palate movement, full and symmetric 11th cranial nerve: full strength in shoulder shrug 12th cranial nerve: tongue protrusion full and midline Myotactic reflexes: 2+ and symmetrical, Patellar Gait: Normal Romberg: Negative Sensory examination is grossly intact to light touch Samy Spivey PA-C MEDICAL DECISION MAKING DATA REVIEW: Review of mri brain 08/06/21 shows an approximately 8mm chiari of the R cerebellar tonsil only. witha retroflexed odontoid. IMPRESSION In summary, Diane Heller is a 30 year old female with a hx of migraines, depression, who presents today for a new patient evaluation of chiari. She has had a constant R occipital headache over the past year, worsening over the past few months and over the past few months has also started to developissues with speech expression, UE and LE paresthesias, R hand weakness, and dizziness. We reviewed her MRI which shows an approximately 8mm chiari of the R cerebellar tonsil only. with a retroflexed odontoid. As her symptoms are primarily on the R side, I suspect that her chiari is contributing. I would recommend a spine mri to assess for signs of a syrinx or tethered cord and a flex/ex cervical x-ray to assess for signs of instability. After her workup is complete I would like for her to meet with Dr. Rojo for further evaluation. I would also recommend to continue her care with neurology in the interim. I would be happy to see her back as needed. RECOMMENDATIONS The above was extensively discussed with the patient. Based on our findings, I would recommend a spine mri and flex/ex cervical xray and then to follow up with Dr. Rojo.. I would like to see Diane Heller back in clinic for a follow up visit and repeat assesment in as needed time. TREATMENT OPTIONS & RISKS: I have discussed the management options and there respective risks and benefits with the patient. I spent a total of 90 minutes on the date of the service which included preparing to see the patient, [id number] patient care, completing clinical documentation, obtaining and/or reviewing separately obtained history, performing a medically appropriate examination, counseling and educating the pat ient/family/caregiver, ordering medications, tests, or procedures, independently interpreting results (not separately reported) and communicating results to the patient/family/caregiver. . Thank you for the opportunity to participate in Diane Heller's care. If I can answer any additionalquestions, I would be pleased to do so. Sincerely, Samy Spivey PA-C. Supervising Physician: Deborah Duron MD Pediatric and Adult Neurosurgery 09/03/2021 CC: These final recommendations will be communicated back to the requesting physician/primary care physician by way of shared medical record [facility] NoteHPI Staff 29 year old female on consultation from Dr. Evangelista with chief complaint of RUQ abdominal pain and constipation. Patient states constipation following hysterectomy in November 2019. Patient presented to the ER in April after not having a bowel movement for 3 weeks. Was given enema and laxative with no relief from symptoms. CT scan of abdomen and pelvis done on 05/03/20, HIDA scan on 06/06/20 and US on 05/15/20. Has never had colonoscopy Denies family history of colon cancer but states there is a history of IBS and Crohns. Denies visible blood in the stool. Taking Miralax and has increased fiber intake and Activia. History of Present Illness 29 yo female referred for change in bowel habits and abdominal bloating; worsening constipation since hysterectomy 11/2019; went to ED in [place] 05/03/20 for bloating and generalized abd pain, no bm for 3 weeks; ct scan of abdomen/pelvis with just constipation; patient taking Miralax every other dayand Activia yogurt daily; has decreased caliber stools, smaller stools, every several days; abdomenalways feels bloated even after bms; no blood in stools, no N/V; no change in activity or hydration; no other abdominal operations; no previous endoscopy; no asa or NSAID use, no SBE prophylaxis; no fmhx of GI malignancy or IBD. Review of Systems PHQ Score Initial Depression Screen Score: 0 ROS - Provider Constitutional: no fever, no sweats, no weight loss. Eyes: no glasses, no blurred vision, no visual loss. ENMT: no dentures, no hoarseness, no swallowing difficulties, no hearing loss, no ear infection(s),no nose bleeds. Cardiovascular: normal blood pressure, no chest pain, regular heartbeat, no heart murmur. Respiratory: no shortness of breath, no cough, no asthma, no wheezing. Gastrointestinal: no nausea, no vomiting, no diarrhea, yes constipation, no blood in stool, yes change in bowel habits, no abdominal pain, no hepatitis. Genitourinary: no kidney stones, no urine infection, no dysuria. Musculoskeletal: no pain, no weakness. Skin: no changing moles, no rash, no skin lumps. Neurologic: no seizures, no epilepsy, no headache. Psychiatric: no emotional or psychiatric problem. Heme/Lymph: no bleeding problems, no anemia, no blood clots, no transfusions. Allergy/Immunologic: no swollen lymph nodes/glands, no IV drug abuse. Other: Additional ROS info: Except as noted in the above Review of Systems and in the History of Present Illness, all other systems have been reviewed and are negative or noncontributory. Physical Exam Vitals & Measurements T: 37 ?C (Tympanic) BP: 116/60 HT: 147.32 cm HT: 147.3 cm WT: 52.16 kg WT: 52.2 kg BMI: 24.03 HEENT: normal conjunctiva, sclera clear, no scleral icterus, EOM intact, PERRLA. oral mucosa moist without lesions Neck: trachea midline , no mass, symmetric, no thyromegaly or nodules. no adenopathy Respiratory: lungs CTA, respirations non labored. Cardiovascular: regular rate and rhythm, no murmur, , no pedal edema or varicosities. Gastrointestinal: soft, mild non distended, mild tenderness, lower abd, no peritoneal signs, no masses, no palpable hernias, diastasis recti no, no hepatosplenomegaly. normal bs Lymphatic: no cervical adenopathy, no axillary adenopathy, Musculoskeletal: normalgait, digits and nails without infection, nodes, cyanosis, clubbing. Skin: no rashes, no lesions, no ulcers, no subcutaneous nodules, induration. Psychiatric/Neuro: oriented to time, place, person, judgement normal, affect appropriate for age, insight intact, no focal deficits. Tests: x-rays reviewed, review of old records completed, Discussed surgical options, risks, and possible complications with patient. Assessment/Plan 1. Change in bowel habits (R19.4: Change in bowel habit) plan colonoscopy under anesthesia for further evaluation, informed consent obtained. will do 2 day prep. patient understands the risks associated with COVID-19, and the need for preoperative testing with self-isolation until the procedure. 2. Abdominal bloating (R14.0: Abdominal distension (gaseous)) see # 1 3. Constipation (K59.00: Constipation, unspecified) see # 1 Follow-up No qualifying data available Problem List/Past Medical History Ongoing Abdominal bloating Abdominal pain Change in bowel habits Constipation Depression Estrogen deficiency Flank pain Kidney stone Urethral stricture Historical Constipation Depression Headache Hypertension Hypothyroidism Nephrolithiasis Sponge kidney Urinary retention Procedure/Surgical History Abdominal hysterectomy (11/11/2019), Cystoscopic removal of ureteric stent (10/12/2016), ESWL - Extracorporeal shockwave lithotripsy for renal calculus (09/24/2016), Lithotripsy, teeth extraction. Medications doxycycline monohydrate 100 mg oral capsule, Oral, BID estradiol 1 mg oral tablet, 1 mg= 1 tab(s), Oral, Daily MiraLax, See Instructions Protonix 40 mg Tab-DR, 40 mg= 1 tab(s), Oral, Daily Vistaril 25 (more content not included)...[facility] CenterComment on above:Result Comment: Electronically Signed By: NERI WELSH, Les Angel\Date and Time Signed: 06/12/20 17:16 ESTDischarge summary Author Padmini Moreno [facility] December 12, 2021 7:36pm Note Date/Time December 12, 2021 7:36pm [facility] [address] [place] [address] Discharge Summary Signed Patient: Pastor Heller MR#: [id number] : 1990 Acct:[id number] Age/Sex: 31 / F Adm Date: 2 Loc: Room: [address] [place] [address]: Padmini Moreno DO Copies to: MD Padmini Giraldo, DO~ Providers Date of Discharge: 12/12/21 Discharging Provider: Padmini Moreno Primary Care Provider: Siobhan Evangelista Consults: 12/11/21 02:03 Consult to Cardiology Routine 12/11/21 02:40 Consult to Neurology Routine Discharge Diagnosis (1) Syncopal episodes: (2) Chiari I malformation: (3) Sinus tachycardia: Final Diagnosis Final Discharge Diagnosis: Same as above Summary Hospital Course Hospital course: 31-year-old female with a past medical history of Chiari malformation was transferred from from [facility] after presentation for syncopal episode at work. She states this is been ongoing in her eighth episode of symptoms. She describes intense headache, associated tachycardia and passing out with the episode. She has been seen by Dr. Garcia in the outpatient neurology clinic and also Dr. Rojo at the [facility] regarding Chiari I malformation. Initial concern was for SVT however this was not seen on telemetry monitoring. She did not have significant elevations in blood pressure while inpatient. Cardiology felt this could be pheochromocytoma or POTS syndrome and started the patient on metoprolol. Neurology also evaluated the patient and MRI did not show evidence of CSF flow restriction. In addition to the beta-shilpi, gabapentin was increased to 300 mg 3 times daily and oxcarbazepine was decreased to 150 mg twice daily for headaches. Serum metanephrine results and urine metanephrine results are pending at the time of discharge. Consideration of tilt table testing and further evaluation for POTS can be performed as an outpatient. Clinically she is improved and stable for discharge. Condition Condition at Discharge: Stable Status at Discharge Functional status at discharge: independent ambulation Overall status at discharge: patient is progressing back to baseline Time Spent with Patient Time spent providing/coordinating discharge services (# min): 45 Diagnostic Studies Completed and Pending Studies Pending studies at discharge: 12/12/21 06:40 Metanephrines, Frac, Pl, Free IN AM 12/12/21 08:00 Metanephrine Urine Random Routine Exam Physical Exam Vital Signs: Temp Pulse Resp BP Pulse Ox O2 Del Method 98.5 F 77 20 126/83 96 Room Air 12/12/21 16:13 12/12/21 16:13 12/12/21 16:13 12/12/21 16:13 12/12/21 16:13 12/12/21 16:13 Narrative: General: Alert and oriented x3, no distress HEENT: Normocephalic, atraumatic, pupils are equal and reactive to light, neck is supple and trachea is midline Lungs: Clear on auscultation bilaterally, no wheezing or rhonchi Cardio: RRR, No murmur Abdomen: Soft, nondistended nontender palpation, BS present LE: No edema Neuro: A&O X3, Speech is clear, no muscle deficit in upper or lower extremity, reported right facial dullness to sensation. Ambulating independently Skin: Warm and dry Discharge Plan Discharge Plan Patient Disposition: Home Activity: No Activity Restriction Diet: Regular Additional Instructions: Please call and schedule an appointment with your [facility]. Please follow up with PCP after discharge to review results of Serum metanephrines and urine study Stand Alone Forms: Work/School Release Form Prescriptions: New oxcarbazepine 150 mg Tablet 150 mg PO BID Qty: 60 0RF gabapentin 300 mg Capsule 300 mg PO TID Qty: 90 0RF metoprolol succinate 25 mg Tablet Extended Release 24 Hr 25 mg PO DAILY Qty: 30 0RF Continued tizanidine 4 mg tablet 4 mg PO HS Label Comments: TAKE 1/2 TO 1 (ONE-HALF TO ONE) TABLET BY MOUTH EVERY DAY AT BEDTIME FOR 30 DAYS hydrocodone-acetaminophen 5-325 mg Tablet 1 tab PO Q6H PRN (Reason: Pain) pantoprazole 40 mg tablet,delayed release (DR/EC) 40 mg PO DAILY Label Comments: TAKE 1 TABLET BY MOUTH ONCE DAILY Discontinued oxcarbazepine 300 mg tablet 300 mg PO BID Label Comments: TAKE 1 TABLET BY MOUTH TWICE DAILY Follow Up: Siobhan Evangelista MD [Primary Care Provider] - 12/19/21 1:00 pm (Follow-up with your Primary Care Provider, call office to reschedule if needed. ) Winter Rojo MD [Referring] - 12/30/21 (Keep your appointment as already scheduled.) Documented By: Padmini Moreno DO 12/12/211925 Signed By: <Electronically signed by Padmini Moreno DO> 12/12/211935 [facility] Work Phone: Evaluation note* Diagnosis Chiari malformation type I (HCC)- Primary Compression of brain Syringomyelia and syringobulbia (HCC) Syringomyelia and syringobulbia [facility] Diagnosis Onset Date Resolution Status Chiari I malformation acute Episode of hypertension acut e Sinus tachycardia acute Syncopal episodes acute [facility] Work Phone: Evaluation note* Diagnosis Arnold-Chiari syndrome (HCC)- Primary Spina bifida with hydrocephalus, unspecified region [facility]* Diagnosis Syncope and collapse- Primary [id number] syndrome manifesting as chronic neurologic symptoms [id number] syndrome manifesting as chronic headache [facility] Syncope and collapse- Primary [facility] Diagnosis Transient loss of consciousness- Primary Syncope and collapse Hand weakness Other musculoskeletal symptoms referable to limbs Dysphagia, unspecified type Tachycardia Tachycardia, unspecified Orthostatic lightheadedness Dizziness and giddiness Functional movement disorder Other extrapyramidal disease and abnormal movement disorder Tremulousness Abnormal involuntary movements [facility] Diagnosis Cervical spine instability- Primary Unspecified musculoskeletal disorders and symptoms referable to neck [facility]* Diagnosis Syncope and collapse- Primary [facility]* Diagnosis Convulsions, unspecified convulsion type (HCC)- Primary Transient loss of consciousness Syncope and collapse [facility]* Diagnosis POTS (postural orthostatic tachycardia syndrome)- Primary Tachycardia, unspecified Transient loss of consciousness Syncope and collapse Intractable migraine with aura without status migrainosus Migraine with aura, with intractable migraine, so stated, without mention of status migrainosus Positional headache Headache Arnold-Chiari malformation (HCC) Spina bifida with hydrocephalus, unspecified region [facility]* Diagnosis Cardiomyopathy, nonischemic (HCC)- Primary Other primary cardiomyopathies [facility] Diagnosis Chronic systolic congestive heart failure (HCC)- Primary Chronic systolic heart failure [facility]* Diagnosis SOB (shortness of breath)- Primary Shortness of breath [facility]* Diagnosis SOB (shortness of breath)- Primary Shortness of breath [facility]* Diagnosis SOB (shortness of breath)- Primary Shortness of breath Post-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 (PASC) Cough, unspecified type Chest pressure Other chest pain Palpitations POTS (postural orthostatic tachycardia syndrome) Tachycardia, unspecified Brain fog Difficulty concentrating Attention or concentration deficit Memory changes Memory loss Headaches Neck pain Cervicalgia Chronic fatigue Other malaise and fatigue Activity intolerance Other general symptoms Dizziness Dizziness and giddiness Neck stiffness Torticollis, unspecified Irritable bowel syndrome with constipation Irritable bowel syndrome Cognitive changes Other signs and symptoms involving cognition [facility]* Diagnosis POTS (postural orthostatic tachycardia syndrome)- Primary Tachycardia, unspecified [facility]* Diagnosis Tachycardia- Primary Tachycardia, unspecified Palpitations Post-COVID syndrome SOB (shortness of breath) Shortness of breath Other post infection and related fatigue syndromes Brain fog Atypical chest pain Other chest pain [facility]* Diagnosis SOB (shortness of breath)- Primary Shortness of breath [facility]* Diagnosis Tachycardia- Primary Tachycardia, unspecified Palpitations Post-COVID syndrome SOB (shortness of breath) Shortness of breath Other post infection and related fatigue syndromes Brain fog Atypical chest pain Other chest pain Syncope, unspecified syncope type Other migraine without status migrainosus, not intractable Arnold-Chiari malformation (HCC) Spina bifida with hydrocephalus, unspecified region [facility]* Diagnosis Chronic migraine w/o aura w/o status migrainosus, not intractable- Primary Chronic migraine without aura, without mention of intractable migraine without mention of status migrainosus Arnold-Chiari malformation (HCC) Spina bifida with hydrocephalus, unspecified region Exertional headache Headache [facility]* Diagnosis Need for prophylactic vaccination and inoculation against influenza- Primary [facility] Diagnosis Chronic migraine w/o aura w/o status migrainosus, not intractable- Primary Chronic migraine without aura, without mention of intractable migraine without mention of status migrainosus [facility] Additional Instructions Please call and schedule an appointment with your [facility]. Please follow up with PCP after discharge to review results of Serum metanephrines and [facility] Work Phone: InstructionsNot on filedocumented in this encounter [facility] (narrative)* Diagnostic Procedure Only (Routine) - Pending Review Specialty Diagnoses / Procedures Referred By Neva t Referred To Contact XR IMAGING Diagnoses Syringomyelia and syringobulbia (HCC) Procedures XR CERVICAL 2V FLEX/EXT RADEX SPINE CERVICAL 2 OR 3 VIEWS Samy Spivey PA-C [address] [place] [address] Xr Imaging Referral ID Status Reason Start Date Expiration Date Visits Requested Visits Authorized [id number] Pending Review Auto-Generat ed Referral 09/03/2021 10/03/2022 1 1 * MRI/CT (Routine) - Pending Review Specialty Diagnoses / Procedures Referred By Contac t Referred To Contact MR IMAGING Diagnoses Syringomyelia and syringobulbia (HCC) Procedures MRI LUMBAR SPINE WO/W IVCON MRI SPINAL CANAL LUMBAR W/O & W/CONTR MATRL Samy Spivey PA-C [address] [place] [address] Mr Imaging Referral ID Status Reason Start Date Expiration Date Visits Requested Visits Authorized [id number] Pending Review Auto-Generat ed Referral 09/03/2021 10/03/2022 1 1 * MRI/CT (Routine) - Pending Review Specialty Diagnoses / Procedures Referred By Contac t Referred To Contact MR IMAGING Diagnoses Syringomyelia and syringobulbia (HCC) Procedures MRI THORACIC SPINE WO/W IVCON MRI SPINAL CANAL THORACIC W/O & W/CONTR Samy Shafer PA-C [address] [place] [address] Mr Imaging Referral ID Status Reason Start Date Expiration Date Visits Requested Visits Authorized [id number] Pending Review Auto-Generat ed Referral 09/03/2021 10/03/2022 1 1 * MRI/CT (Routine) - Pending Review Specialty Diagnoses / Procedures Referred By Contac t Referred To Contact MR IMAGING Diagnoses Syringomyelia and syringobulbia (HCC) Procedures MRI CERVICAL SPINE WO/W IVCON MRI SPINAL CANAL CERVICAL W/O & W/CONTR Samy Shafer PA-C [address] [place] [address] Mr Imaging Referral ID Status Reason Start Date Expiration Date Visits Requested Visits Authorized [id number] Pending Review Auto-Generat ed Referral 09/03/2021 10/03/2022 1 1 [facility] for referral (narrative)* Outpatient Procedure (Routine) - Authorized Specialty Diagnoses / Procedures Referred By Contac t Referred To Contact [facility] Diagnoses Cardiomyopathy, nonischemic (HCC) Procedures ECG COMPLETE ECG ROUTINE ECG W/LEAST 12 LDS W/I&R Rita Dougherty MD [address] [id number] [facility] [place] [address] [place] [address] Referral ID Status Reason Start Date Expiration Date Visits Requested Visits Authorized [id number] Authorized Auto-Generat ed Referral 12/23/2022 12/23/2023 1 1 [facility] for referral (narrative)* Outpatient Procedure (Routine) - Authorized Specialty Diagnoses / Procedures Referred By Contac t Referred To Contact [facility] Diagnoses Chronic systolic congestive heart failure (HCC) Procedures ECG COMPLETE ECG ROUTINE ECG W/LEAST 12 LDS W/I&R Irina Finley DO [address] [place] [address] [facility] [place] [address] [place] [id number] Referral ID Status Reason Start Date Expiration Date Visits Requested Visits Authorized [id number] Authorized Auto-Generat ed Referral 02/10/2023 02/10/2024 1 1 [facility] for referral (narrative)* Outpatient Procedure (Routine) - Authorized Specialty Diagnoses / Procedures Referred By Contac t Referred To Contact [facility] Diagnoses SOB (shortness of breath) Procedures SIX MINUTE WALK CARDIOPULMONARY EXERCISE STRESS Eitan Mccauley APRN.CNP [address] [place] [address] [facility] [place] [address] [place] [id number] Referral ID Status Reason Start Date Expiration Date Visits Requested Visits Authorized [id number] Authorized Auto-Generat ed Referral OON/Self Pay Override 02/12/2023 03/11/2024 1 1 * Outpatient Procedure (Routine) - Authorized Specialty Diagnoses / Procedures Referred By Contac t Referred To Contact [facility] Diagnoses SOB (shortness of breath) Procedures SPIROMETRY - BASELINE AND POST DILATOR BRNCDILAT RSPSE SPMTRY PRE&POST-BRNCDILAT ADMN Eitan Mccauley APRN.CNP [address] [place] [address] [address] Referral ID Status Reason Start Date Expiration Date Visits Requested Visits Authorized [id number] Authorized Auto-Generat ed Referral OON/Self Pay Override 02/12/2023 03/11/2024 1 1 * Outpatient Procedure (Routine) - Waiting for Response Specialty Diagnoses / Procedures Referred By Contac t Referred To Contact [facility] Diagnoses SOB (shortness of breath) Procedures LUNG VOLUMES PLETHYSMOGRAPHY LUNG VOLUMES W/WO AIRWAY RESIST Eitan Mccauley APRN.[employer] [address] [place] [address] [address] Referral ID Status Reason Start Date Expiration Date Visits Requested Visits Authorized [id number] Waiting for Response Auto-Generat ed Referral OON/Self Pay Override 02/12/2023 03/11/2024 1 1 * Outpatient Procedure (Routine) - Authorized Specialty Diagnoses / Procedures Referred By Contac t Referred To Contact [facility] Diagnoses SOB (shortness of breath) Procedures LUNG DIFFUSION CAPACITY (DLCO) DIFFUSING CAPACITY Eitan Mccauley APRN.[employer]ICE [employer]KER [address] [place] [address] [address] Referral ID Status Reason Start Date Expiration Date Visits Requested Visits Authorized [id number] Authorized Auto-Generat ed Referral OON/Self Pay Override 02/12/2023 03/11/2024 1 1 [facility] Outpatient Procedure (Routine) - Authorized Specialty Diagnoses / Procedures Referred By Contac t Referred To Contact [facility] Diagnoses Tachycardia Procedures ECG COMPLETE ECG ROUTINE ECG W/LEAST 12 LDS W/I&R Irina Finley DO [address] [place] [address] [address] Referral ID Status Reason Start Date Expiration Date Visits Requested Visits Authorized [id number] Authorized Auto-Generat ed Referral 08/17/2023 08/16/2024 1 1 * Transition of Care (Routine) - Ref Not Required Specialty Diagnoses / Procedures Referred By Contac t Referred To Contact [facility] Procedures CARDIOVASCULAR MEDICINE OP FOLLOW UP APPT ORDER Irina Finley DO [address] [place] [address] [address] Referral ID Status Reason Start Date Expiration Date Visits Requested Visits Authorized [id number] Ref Not Required PCP Requested Referral 02/17/2024 08/16/2024 1 1 * Outpatient Procedure (Routine) - Authorized Specialty Diagnoses / Procedures Referred By Contac t Referred To Contact [facility] Diagnoses SOB (shortness of breath) Procedures CARDIOPULMONARY EXERCISE TEST PULMONARY STRESS TESTING Irina Finley DO [address] [place] [address] [facility] [place] [address] [place] [id number] Referral ID Status Reason Start Date Expiration Date Visits Requested Visits Authorized [id number] Authorized Auto-Generat ed Referral OON/Self Pay Override 08/17/2023 09/15/2024 1 1 [facility] for visit Narrative* Diagnostic Procedure Only (Routine) - Closed Specialty Diagnoses / Procedures Referred By Contac t Referred To Contact [facility] Diagnoses POTS (postural orthostatic tachycardia syndrome) [I49.8] Procedures CARDIOVASCULAR FUNCTION EVAL W/TILT TABLE W/MNTR TILT TABLE EVALUATION Sabiha Pavon MD [address] [place] [address] [facility] [place] [address] [place] [address] Referral ID Status Reason Start Date Expiration Date V isits Requested Visits Authorized [id number] Closed OON/Self Pay Override 01/20/2022 07/21/2022 1 1 [facility] Summary Purpose Family History No Family History Records Found Relationship Condition Age at Onset Recorded Date/T selvin Not Specified Calculus of kidney Unknown father Autoimmune disease Unknown Advance Directives No Advanced Directives Records Found Advance Directive Response Recorded Date/ Time Advance Directives No September 01 8 12:37pm Chief Complaint and Reason for Visit Chief Complaint Syncope Reason for Visit Chiari I malformatio n Episode of hypertension Sinus tachycardia Syncopal episodes Chief Complaint Syncope syncope Reason for Visit Chiari I malformatio n Episode of hypertension Sinus tachycardia Syncopal episodes Reason for Referral Specialty Diagnoses / Procedures Referred By Neva t Referred To Contact [facility] Diagnoses Arnold-Chiari syndrome (HCC) Procedures CONSULT TO PHYSICAL THERAPY PHYSICAL THERAPY EVALUATION HIGH COMPLEX [address] [place] [address] [place] [address] [facility] [place] [id number] [place] [address] Referral ID Status Reason Start Date Expiration Date Visits Requested Visits Authorized [id number] Pending Review Auto-Generat ed Referral 12/30/2021 12/30/2022 1 1 Specialty Diagnoses / Procedures Referred By Neva t Referred To Contact [facility] Diagnoses Ryro-LUEYL-05 syndrome manifesting as chronic headache Procedures CONSULT TO [facility] [place] [address] [place] [address] [facility]m [facility] [address] [place] [address] Referral ID Status Reason Start Date Expiration Date Visits Requested Visits Authorized [id number] Pending Review PCP Requested Referral 01/09/2022 01/09/2023 1 1 Specialty Diagnoses / Procedures Referred By Contac t Referred To Contact Neurology / [facility] Diagnoses Functional movement disorder Procedures CONSULT TO NEUROLOGY OFFICE/OUTPATIENT [facility] 60-74 MINUTES Ortega Natarajan APRN.CORNICE MAKER [address] [place] [address] [place] [address] Referral ID Status Reason Start Date Expiration Date Visits Requested Visits Authorized [id number] Authorized OON/Self Pay Override 02/16/2022 02/16/2023 1 1 Specialty Diagnoses / Procedures Referred By Contac t Referred To Contact [facility] Diagnoses Dysphagia, unspecified type Procedures CONSULT TO SPEECH THERAPY OFFICE/OUTPATIENT [facility] 60-74 MINUTES Ortega Natarajan APRN.CORNICE MAKER [address] [place] [address] [facility] [place] [address] Referral ID Status Reason Start Date Expiration Date Visits Requested Visits Authorized [id number] Pending Review Auto-Generat ed Referral 02/16/2022 02/16/2023 1 1 Specialty Diagnoses / Procedures Referred By Contac t Referred To Contact Neurology / [facility] Diagnoses Transient loss of consciousness Procedures CONSULT TO NEUROLOGY OFFICE/OUTPATIENT [facility] 60-74 MINUTES Ortega Natarajan APRN.CORNICE MAKER [address] [place] [address] [place] [address] Referral ID Status Reason Start Date Expiration Date Visits Requested Visits Authorized [id number] Authorized OON/Self Pay Override 02/16/2022 02/16/2023 1 1 Specialty Diagnoses / Procedures Referred By Contac t Referred To Contact [facility] Diagnoses Transient loss of consciousness Procedures EPIL EEG LONG EEG EXTENDED MONITORING 61-119 MINUTES ELECTROENCEPHALOGRAM REC COMA/SLEEP ONLY Ortega Natarajan APRN.CORNICE MAKER [address] [place] [address] [facility] [place] [address] [place] [address] Referral ID Status Reason Start Date Expiration Date Visits Requested Visits Authorized [id number] Authorized OON/Self Pay Override 02/16/2022 02/16/2023 1 1 Specialty Diagnoses / Procedures Referred By Contac t Referred To Contact [facility] Diagnoses Hand weakness Procedures EMG(NEURO/NI) NERVE CONDUCTION STUDIES 9-10 STUDIES Ortega Natarajan, DIRECTOR [place] [address] [place] [address] Referral ID Status Reason Start Date Expiration Date Visits Requested Visits Authorized [id number] Authorized OON/Self Pay Override 02/16/2022 02/16/2023 1 1 Specialty Diagnoses / Procedures Referred By Contac t Referred To Contact [facility] Diagnoses Cervical spine instability Procedures CONSULT TO PHYSICAL THERAPY PHYSICAL THERAPY EVALUATION HIGH COMPLEX [address] [place] [address] [place] [address] [facility] [place] [address] Referral ID Status Reason Start Date Expiration Date Visits Requested Visits Authorized [id number] Pending Review Auto-Generat ed Referral 2 02/19/2023 1 1 Specialty Diagnoses / Procedures Referred By Contac t Referred To Contact CT IMAGING Diagnoses Cervical spine instability Procedures CT CERVICAL SPINE WO IVCON CT CERVICAL SPINE W/[place] [address] [place] [id number] Imaging Referral ID Status Reason Start Date Expiration Date Visits Requested Visits Authorized [id number] Pending Review Auto-Generat ed Referral 2 03/21/2023 1 1 Specialty Diagnoses / Procedures Referred By Contac t Referred To Contact Neurology / HEADACHE Diagnoses Intractable migraine with aura without status migrainosus Positional headache Arnold-Chiari malformation (HCC) Procedures CONSULT TO NEUROLOGY OFFICE/OUTPATIENT NEW HIGH MDM 60-74 MINUTES Ortega Natarajan DIRECTOR OF MARKETING [employer]NALYTICS.CORNICE MAKER [address] [place] [address] Neur Headache Main [address] [place] [address] Referral ID Status Reason Start Date Expiration Date Visits Requested Visits Authorized [id number] Authorized PCP Requested Referral OON/Self Pay Override 05/29/2022 05/29/2023 1 1 Specialty Diagnoses / Procedures Referred By Contac t Referred To Contact MR IMAGING Diagnoses Intractable migraine with aura without status migrainosus Positional headache Arnold-Chiari malformation (HCC) Procedures MRI BRAIN WO/W IVCON MRI BRAIN BRAIN STEM W/O W/CONTRAST MATERIAL Ortega Natarajan DIRECTOR OF MARKETING [employer]NALYT[employer]ORNICE MAKER [address] [place] [address] Mr Imaging Referral ID Status Reason Start Date Expiration Date Visits Requested Visits Authorized [id number] Authorized Auto-Generat ed Referral OON/Self Pay Override 05/29/2022 06/28/2023 1 1 Specialty Diagnoses / Procedures Referred By Contac t Referred To Contact MR IMAGING Diagnoses Intractable migraine with aura without status migrainosus Positional headache Arnold-Chiari malformation (HCC) Procedures MRV BRAIN WO/W IVCON MRA; HEAD W & WO CONTRAST Ortega Natarajan DIRECTOR OF MARKETING [employer]NALYT[employer].CORNICE MAKER [address] [place] [address] Mr Imaging Referral ID Status Reason Start Date Expiration Date Visits Requested Visits Authorized [id number] Authorized Auto-Generat ed Referral OON/Self Pay Override 05/29/2022 06/28/2023 1 1 Specialty Diagnoses / Procedures Referred By Contac t Referred To Contact [facility] Diagnoses Post-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 (PASC) Headaches Neck pain Chronic fatigue Neck stiffness Procedures CONSULT TO MASSAGE THERAPY OFFICE/OUTPATIENT [facility] MDM 60-74 MINUTES Eitan Mccauley, DIRECTOR OF MARKETING ANALYTICS.CORNICE MAKER [address] [place] [address] [facility] [place] [address] [place] [address] Referral ID Status Reason Start Date Expiration Date Visits Requested Visits Authorized [id number] Pending Review PCP Requested Referral OON/Self Pay Override 3 02/26/2024 1 1 Specialty Diagnoses / Procedures Referred By Contac t Referred To Contact [facility] Diagnoses Post-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 (PASC) POTS (postural orthostatic tachycardia syndrome) Headaches Neck pain Chronic fatigue Irritable bowel syndrome with constipation Brain fog Procedures CONSULT TO WELLNESS PHYSICIAN OFFICE/OUTPATIENT [facility] 60-74 MINUTES Eitan Mccauley APRN.CORNICE MAKER [address] [place] [address] [facility] [address] [place] [address] Referral ID Status Reason Start Date Expiration Date Visits Requested Visits Authorized [id number] Pending Review PCP Requested Referral OON/Self Pay Override 3 02/26/2024 1 1 Specialty Diagnoses / Procedures Referred By Contac t Referred To Contact [facility] Diagnoses Post-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 (PASC) Headaches Neck pain Chronic fatigue Neck stiffness Procedures CONSULT FOR ACUPUNCTURE OFFICE/OUTPATIENT [facility]) 60-74 MINUTES Eitan Mccauley APRN.CORNICE MAKER [address] [place] [address] [facility] [address] [place] [address] Referral ID Status Reason Start Date Expiration Date Visits Requested Visits Authorized [id number] Pending Review PCP Requested Referral OON/Self Pay Override 3 02/26/2024 1 1 Specialty Diagnoses / Procedures Referred By Contac t Referred To Contact [facility] Diagnoses Post-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 (PASC) Brain fog Difficulty concentrating Memory changes Cognitive changes Procedures CONSULT TO SPEECH THERAPY OFFICE/OUTPATIENT [facility] 60-74 MINUTES Eitan Mccauley APRN.CORNICE MAKER [address] [place] [address] [facility] [place] [address] [place] [address] Referral ID Status Reason Start Date Expiration Date Visits Requested Visits Authorized [id number] Pending Review Auto-Generat ed Referral OON/Self Pay Override 3 02/26/2024 1 1 Specialty Diagnoses / Procedures Referred By Contac t Referred To Contact Procedures CARDIOVASCULAR MEDICINE OP FOLLOW UP APPT ORDER James Noble MD [address] [place] [address] Referral ID Status Reason Start Date Expiration Date Visits Requested Visits Authorized [id number] Ref Not Required PCP Requested Referral 06/03/2023 06/02/2024 1 1 Specialty Diagnoses / Procedures Referred By Contac t Referred To Contact [facility] Procedures CARDIOVASCULAR MEDICINE OP FOLLOW UP APPT ORDER Irina Finley DO [address] [place] [address] [facility] [place] [facility] [place] [address] Referral ID Status Reason Start Date Expiration Date Visits Requested Visits Authorized [id number] Ref Not Required PCP Requested Referral 11/03/2024 02/01/2025 1 1 Specialty Diagnoses / Procedures Referred By Contac t Referred To Contact MR IMAGING Diagnoses Chronic migraine w/o aura w/o status migrainosus, not intractable Arnold-Chiari malformation (HCC) Exertional headache Procedures MRA BRAIN WO IVCON MRA, HEAD W/O CONTRAST Brock Wang, PA-C [address] [place] [address] Mr Imaging [facility] Referral ID Status Reason Start Date Expiration Date Visits Requested Visits Authorized [id number] New Request Auto-Generat ed Referral 4 03/08/2025 1 1 Specialty Diagnoses / Procedures Referred By Contac t Referred To Contact MR IMAGING Diagnoses Chronic migraine w/o aura w/o status migrainosus, not intractable Arnold-Chiari malformation (HCC) Exertional headache Procedures MRI BRAIN WO/W IVCON MRI BRAIN BRAIN STEM W/O W/CONTRAST MATERIAL KathleenBrock latham, PA-C [address] [place] [address] Mr Imaging [facility] Referral ID Status Reason Start Date Expiration Date Visits Requested Visits Authorized [id number] New Request Auto-Generat ed Referral 4 03/08/2025 1 1 Additional Source Comments INFORMATION SOURCE (unrecogn ized section and content) DATE CREATED AUTHOR 06/23/2018 [facility] DATE CREATED AUTHOR AUTHOR'S ORGANIZ ATION 06/09/2020 [facility] DATE CREATED AUTHOR AUTHOR'S ORGANIZ ATION 12/12/2020 [facility] DATE CREATED AUTHOR AUTHOR'S ORGANIZ ATION 05/16/2022 [facility] DATE CREATED AUTHOR AUTHOR'S ORGANIZ ATION 06/07/2022 [facility] DATE CREATED AUTHOR AUTHOR'S ORGANIZ ATION 07/27/2023 [facility] DATE CREATED AUTHOR AUTHOR'S ORGANIZ ATION 02/20/2024 [facility] DATE CREATED AUTHOR AUTHOR'S ORGANIZ ATION 02/24/2024 [facility] DATE CREATED AUTHOR AUTHOR'S ORGANIZ ATION 02/27/2024 [facility] Source Comments (unrecognize d section and content) In the event this informatio n is protected by the Federal Confidentiality of Alcohol and Drug Abuse Patient Records regulations: The Federal rules restrict any use of the information to criminally investigate or prosecute any alcohol or drug abuse patient.[facility] HospitalIn the event this information is protected by the Federal Confidentiality of Alcohol and Drug Abuse Patient Records regulations: The Federal rules restrict any use of the information to criminally investigate or prosecute any alcohol or drug abuse patient.[facility] HospitalIn the event this information is protected by the Federal Confidentiality of Alcohol and Drug Abuse Patient Records regulations: The Federal rules restrict any use of the information to criminally investigate or prosecute any alcohol or drug abuse patient.[facility] HospitalIn the event this information is protected by the Federal Confidentiality of Alcohol and Drug Abuse Patient Records regulations: The Federal rules restrict any use of the information to criminally investigate or prosecute any alcohol or drug abuse patient.[facility] HospitalIn the event this information is protected by the Federal Confidentiality of Alcohol and Drug Abuse Patient Records regulations: The Federal rules restrict any use of the information to criminally investigate or prosecute any alcohol or drug abuse patient.[facility] HospitalIn the event this information is protected by the Federal Confidentiality of Alcohol and Drug Abuse Patient Records regulations: The Federal rules restrict any use of the information to criminally investigate or prosecute any alcohol or drug abuse patient.[facility] HospitalIn the event this information is protected by the Federal Confidentiality of Alcohol and Drug Abuse Patient Records regulations: The Federal rules restrict any use of the information to criminally investigate or prosecute any alcohol or drug abuse patient.[facility] HospitalIn the event this information is protected by the Federal Confidentiality of Alcohol and Drug Abuse Patient Records regulations: The Federal rules restrict any use of the information to criminally investigate or prosecute any alcohol or drug abuse patient.[facility] HospitalIn the event this information is protected by the Federal Confidentiality of Alcohol and Drug Abuse Patient Records regulations: The Federal rules restrict any use of the information to criminally investigate or prosecute any alcohol or drug abuse patient.[facility] HospitalIn the event this information is protected by the Federal Confidentiality of Alcohol and Drug Abuse Patient Records regulations: The Federal rules restrict any use of the information to criminally investigate or prosecute any alcohol or drug abuse patient.[facility] HospitalIn the event this information is protected by the Federal Confidentiality of Alcohol and Drug Abuse Patient Records regulations: The Federal rules restrict any use of the information to criminally investigate or prosecute any alcohol or drug abuse patient.[facility] HospitalIn the event this information is protected by the Federal Confidentiality of Alcohol and Drug Abuse Patient Records regulations: The Federal rules restrict any use of the information to criminally investigate or prosecute any alcohol or drug abuse patient.[facility] HospitalIn the event this information is protected by the Federal Confidentiality of Alcohol and Drug Abuse Patient Records regulations: The Federal rules restrict any use of the information to criminally investigate or prosecute any alcohol or drug abuse patient.[facility] HospitalIn the event this information is protected by the Federal Confidentiality of Alcohol and Drug Abuse Patient Records regulations: The Federal rules restrict any use of the information to criminally investigate or prosecute any alcohol or drug abuse patient.[facility] HospitalIn the event this information is protected by the Federal Confidentiality of Alcohol and Drug Abuse Patient Records regulations: The Federal rules restrict any use of the information to criminally investigate or prosecute any alcohol or drug abuse patient.[facility] HospitalIn the event this information is protected by the Federal Confidentiality of Alcohol and Drug Abuse Patient Records regulations: The Federal rules restrict any use of the information to criminally investigate or prosecute any alcohol or drug abuse patient.[facility] HospitalIn the event this information is protected by the Federal Confidentiality of Alcohol and Drug Abuse Patient Records regulations: The Federal rules restrict any use of the information to criminally investigate or prosecute any alcohol or drug abuse patient.[facility] HospitalIn the event this information is protected by the Federal Confidentiality of Alcohol and Drug Abuse Patient Records regulations: The Federal rules restrict any use of the information to criminally investigate or prosecute any alcohol or drug abuse patient.[facility] HospitalIn the event this information is protected by the Federal Confidentiality of Alcohol and Drug Abuse Patient Records regulations: The Federal rules restrict any use of the information to criminally investigate or prosecute any alcohol or drug abuse patient.[facility] HospitalIn the event this information is protected by the Federal Confidentiality of Alcohol and Drug Abuse Patient Records regulations: The Federal rules restrict any use of the information to criminally investigate or prosecute any alcohol or drug abuse patient.[facility] HospitalIn the event this information is protected by the Federal Confidentiality of Alcohol and Drug Abuse Patient Records regulations: The Federal rules restrict any use of the information to criminally investigate or prosecute any alcohol or drug abuse patient.[facility] HospitalIn the event this information is protected by the Federal Confidentiality of Alcohol and Drug Abuse Patient Records regulations: The Federal rules restrict any use of the information to criminally investigate or prosecute any alcohol or drug abuse patient.[facility] HospitalIn the event this information is protected by the Federal Confidentiality of Alcohol and Drug Abuse Patient Records regulations: The Federal rules restrict any use of the information to criminally investigate or prosecute any alcohol or drug abuse patient.[facility] HospitalIn the event this information is protected by the Federal Confidentiality of Alcohol and Drug Abuse Patient Records regulations: The Federal rules restrict any use of the information to criminally investigate or prosecute any alcohol or drug abuse patient.[facility] HospitalIn the event this information is protected by the Federal Confidentiality of Alcohol and Drug Abuse Patient Records regulations: The Federal rules restrict any use of the information to criminally investigate or prosecute any alcohol or drug abuse patient.[facility] HospitalIn the event this information is protected by the Federal Confidentiality of Alcohol and Drug Abuse Patient Records regulations: The Federal rules restrict any use of the information to criminally investigate or prosecute any alcohol or drug abuse patient.[facility] HospitalIn the event this information is protected by the Federal Confidentiality of Alcohol and Drug Abuse Patient Records regulations: The Federal rules restrict any use of the information to criminally investigate or prosecute any alcohol or drug abuse patient.[facility] HospitalIn the event this information is protected by the Federal Confidentiality of Alcohol and Drug Abuse Patient Records regulations: The Federal rules restrict any use of the information to criminally investigate or prosecute any alcohol or drug abuse patient.[facility] HospitalIn the event this information is protected by the Federal Confidentiality of Alcohol and Drug Abuse Patient Records regulations: The Federal rules restrict any use of the information to criminally investigate or prosecute any alcohol or drug abuse patient.[facility] HospitalIn the event this information is protected by the Federal Confidentiality of Alcohol and Drug Abuse Patient Records regulations: The Federal rules restrict any use of the information to criminally investigate or prosecute any alcohol or drug abuse patient.[facility] HospitalIn the event this information is protected by the Federal Confidentiality of Alcohol and Drug Abuse Patient Records regulations: The Federal rules restrict any use of the information to criminally investigate or prosecute any alcohol or drug abuse patient.[facility] HospitalIn the event this information is protected by the Federal Confidentiality of Alcohol and Drug Abuse Patient Records regulations: The Federal rules restrict any use of the information to criminally investigate or prosecute any alcohol or drug abuse patient.[facility] HospitalIn the event this information is protected by the Federal Confidentiality of Alcohol and Drug Abuse Patient Records regulations: The Federal rules restrict any use of the information to criminally investigate or prosecute any alcohol or drug abuse patient.[facility] HospitalIn the event this information is protected by the Federal Confidentiality of Alcohol and Drug Abuse Patient Records regulations: The Federal rules restrict any use of the information to criminally investigate or prosecute any alcohol or drug abuse patient.[facility] HospitalIn the event this information is protected by the Federal Confidentiality of Alcohol and Drug Abuse Patient Records regulations: The Federal rules restrict any use of the information to criminally investigate or prosecute any alcohol or drug abuse patient.[facility] HospitalIn the event this information is protected by the Federal Confidentiality of Alcohol and Drug Abuse Patient Records regulations: The Federal rules restrict any use of the information to criminally investigate or prosecute any alcohol or drug abuse patient.[facility] HospitalIn the event this information is protected by the Federal Confidentiality of Alcohol and Drug Abuse Patient Records regulations: The Federal rules restrict any use of the information to criminally investigate or prosecute any alcohol or drug abuse patient.[facility] HospitalIn the event this information is protected by the Federal Confidentiality of Alcohol and Drug Abuse Patient Records regulations: The Federal rules restrict any use of the information to criminally investigate or prosecute any alcohol or drug abuse patient.[facility] HospitalIn the event this information is protected by the Federal Confidentiality of Alcohol and Drug Abuse Patient Records regulations: The Federal rules restrict any use of the information to criminally investigate or prosecute any alcohol or drug abuse patient.[facility] HospitalIn the event this information is protected by the Federal Confidentiality of Alcohol and Drug Abuse Patient Records regulations: The Federal rules restrict any use of the information to criminally investigate or prosecute any alcohol or drug abuse patient.Memorial HospitalIn the event this information is protected by the Federal Confidentiality of Alcohol and Drug Abuse Patient Records regulations: The Federal rules restrict any use of the information to criminally investigate or prosecute any alcohol or drug abuse patient.[facility] HospitalIn the event this information is protected by the Federal Confidentiality of Alcohol and Drug Abuse Patient Records regulations: The Federal rules restrict any use of the information to criminally investigate or prosecute any alcohol or drug abuse patient.[facility] HospitalIn the event this information is protected by the Federal Confidentiality of Alcohol and Drug Abuse Patient Records regulations: The Federal rules restrict any use of the information to criminally investigate or prosecute any alcohol or drug abuse patient.[facility] HospitalIn the event this information is protected by the Federal Confidentiality of Alcohol and Drug Abuse Patient Records regulations: The Federal rules restrict any use of the information to criminally investigate or prosecute any alcohol or drug abuse patient.[facility] HospitalIn the event this information is protected by the Federal Confidentiality of Alcohol and Drug Abuse Patient Records regulations: The Federal rules restrict any use of the information to criminally investigate or prosecute any alcohol or drug abuse patient.[facility] HospitalIn the event this information is protected by the Federal Confidentiality of Alcohol and Drug Abuse Patient Records regulations: The Federal rules restrict any use of the information to criminally investigate or prosecute any alcohol or drug abuse patient.[facility] HospitalIn the event this information is protected by the Federal Confidentiality of Alcohol and Drug Abuse Patient Records regulations: The Federal rules restrict any use of the information to criminally investigate or prosecute any alcohol or drug abuse patient.[facility] HospitalIn the event this information is protected by the Federal Confidentiality of Alcohol and Drug Abuse Patient Records regulations: The Federal rules restrict any use of the information to criminally investigate or prosecute any alcohol or drug abuse patient.[facility] ClinicIn the event this information is protected by the Federal Confidentiality of Alcohol and Drug Abuse Patient Records regulations: The Federal rules restrict any use of the information to criminally investigate or prosecute any alcohol or drug abuse patient.[facility] HospitalIn the event this information is protected by the Federal Confidentiality of Alcohol and Drug Abuse Patient Records regulations: The Federal rules restrict any use of the information to criminally investigate or prosecute any alcohol or drug abuse patient.[facility] HospitalIn the event this information is protected by the Federal Confidentiality of Alcohol and Drug Abuse Patient Records regulations: The Federal rules restrict any use of the information to criminally investigate or prosecute any alcohol or drug abuse patient.[facility] HospitalIn the event this information is protected by the Federal Confidentiality of Alcohol and Drug Abuse Patient Records regulations: The Federal rules restrict any use of the information to criminally investigate or prosecute any alcohol or drug abuse patient.[facility] Reason for Visit (unrecogniz ed section and content) Reason Comments Scans 1CD and reports from [facility]. CD scanned and and all given to Samy. Reason Comments New Patient Reason Comments Received Outside Medical Records [facility] MRI results rcvd. In scanned documents. Reason Comments Patient Update Reason Comments Scans 1 CD rcvd, scanned, and given to Samy from [facility]. Reason Comments Received cardiac EKG report from [facility] report via Onbase Reason Comments Established Patient Specialty Diagnoses / Procedures Referred By Contcurt t Referred To Contact Neurosurgery / BRAIN TUMOR Diagnoses Chiari malformation Patient called for appt Procedures [place] [address] [place] [address] Referral ID Status Reason Start Date Expiration Date Visits Requested Visits Authorized [id number] Waiting for Response Clearance Not Met - Admin/Chair man/Directo r Advise to Postpone/Re schedule or Not Proceed 12/30/2021 03/30/2022 2 2 Reason Comments New Patient Specialty Diagnoses / Procedures Referred By Neva t Referred To Contact [facility] Diagnoses neuro for migraines Procedures Office Visit Siobhan Evangelista MD [address] [place] [address] [facility] [place] [address] [place] [address] Referral ID Status Reason Start Date Expiration Date Visits Requested Visits Authorized [id number] Waiting for Response OON/Self Pay Override Clearance Not Met -Financial Clearance Bypassed 01/08/2022 03/09/2022 1 1 Reason Comments Internal Medicine Specialist - Other Reason Comments Follow Up Specialty Diagnoses / Procedures Referred By Contcurt t Referred To Contact BRAIN TUMOR Diagnoses syringomyelia Procedures virtual appointment Self Winter Rojo MD [address] [place] [address] Referral ID Status Reason Start Date Expiration Date V isits Requested Visits Authorized [id number] Closed OON/Self Pay Override 01/01/2022 07/01/2022 1 1 Reason Comments New Patient Specialty Diagnoses / Procedures Referred By Contac t Referred To Contact ADULT NEUROLOGY Diagnoses POTS eval Referred by Librado Procedures [place] [address] [address] [id number] Ortega Natarajan APRN.CORNICE MAKER [address] [phone] Referral ID Status Reason Start Date Expiration Date Visits Re quested Visits Authorized [id number] Closed 02/16/2022 07/31/2022 1 1 Reason Comments Patient Question Letter request Reason Comments Received Outside Medical Records [facility] Reason Comments Established Patient Specialty Diagnoses / Procedures Referred By Contac t Referred To Contact BRAIN TUMOR Diagnoses syringomyelia Procedures virtual appointment Self Winter Rojo MD [address] [place] [address] Reason Comments Received Outside Medical Records [facility] Reason Comments Other Work restriction que stions Reason Comments Received Outside Medical Records [facility] Reason Comments New Patient Consult Specialty Diagnoses / Procedures Referred By Contac t Referred To Contact [facility]rology / [facility] Diagnoses Transient loss of consciousness Procedures CONSULT TO NEUROLOGY OFFICE/OUTPATIENT NEW HIGH MDM 60-74 MINUTES Ortega Natarajan APRN.CORNICE MAKER [address] [place] [address] [facility] [place] [address] [place] [address] Referral ID Status Reason Start Date Expiration Date Visits Requested Visits Authorized [id number] Waiting for Response OON/Self Pay Override 02/16/2022 02/16/2023 1 1 Reason Comments Established Patient Specialty Diagnoses / Procedures Referred By Contac t Referred To Contact [facility] Diagnoses 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 Reason Comments Spirometry Specialty Diagnoses / Procedures Referred By Contac t Referred To Contact [facility] Diagnoses SOB (shortness of breath) Procedures SPIROMETRY - BASELINE AND POST DILATOR BRNCDILAT RSPSE SPMTRY PRE&POST-BRNCDILAT ADMN Christine, Eitan Jordan, DIRECTOR OF MARKETING ANALYTICS.CORNICE MAKER [address] [place] [address] [address] Referral ID Status Reason Start Date Expiration Date V isits Requested Visits Authorized [id number] Closed Auto-Generate d Referral OON/Self Pay Override 02/12/2023 03/11/2024 1 1 Reason Comments Consult Specialty Diagnoses / Procedures Referred By Contac t Referred To Contact [facility] Diagnoses COVID-19 long hauler Procedures [id number] Siobhan Evangelista MD [address] [place] [address] [facility] [place] [address] [place] [address] Referral ID Status Reason Start Date Expiration Date V isits Requested Visits Authorized [id number] Closed OON/Self Pay Override 02/12/2023 08/14/2023 1 1 Reason Comments High blood pressure CARD New Patient Consult Difficult to ma nage b/p Specialty Diagnoses / Procedures Referred By Contac t Referred To Contact [facility] [place] Diagnoses Blood pressure instability difficult to manage blood pressure Procedures new cardiology appt Self Card Appts Main [address] [place] [address] Referral ID Status Reason Start Date Expiration Date Visits Requested Visits Authorized [id number] Outside PCP OON/Self Pay Override Patient Cleared - Admin/Chair man/Directo r advise to proceed or did not respond 04/21/2023 04/20/2024 2 2 Reason Onset Date Comments Refill Request 06/25/2023 Reason Onset Date Comments Refill Request 07/01/2023 Specialty Diagnoses / Procedures Referred By Contac t Referred To Contact [facility] [place] Diagnoses Syncope and collapse Procedures NEW PATIENT VISIT LEVEL 1 Irina Finley, DO [address] [phone] Card Appts Main [address] [place], [place] [phone] Referral ID Status Reason Start Date Expiration Date V isits Requested Visits Authorized [id number] Closed OON/Self Pay Override 07/21/2023 09/20/2023 1 1 Reason Comments Appointment Specialty Diagnoses / Procedures Referred By Contac t Referred To Contact [facility] Diagnoses SOB (shortness of breath) Procedures CARDIOPULMONARY EXERCISE TEST PULMONARY STRESS TESTING Irina Finley, DO [address] [phone] [facility] [place] [address] [place] [address] Referral ID Status Reason Start Date Expiration Date V isits Requested Visits Authorized [id number] Closed Auto-Generate d Referral OON/Self Pay Override 08/17/2023 09/15/2024 1 1 Reason Comments Refill Request Specialty Diagnoses / Procedures Referred By Contac t Referred To Contact [facility] [place] Diagnoses Syncope Procedures OFFICE/OUTPATIENT EST PT MAY NOT REQ PHYS/QHP Irina Finley, [address] [phone] Card Appts Main [address] [place], [place] [phone] Referral ID Status Reason Start Date Expiration Date Visits Requested Visits Authorized [id number] Authorized OON/Self Pay Override Patient Cleared - INN Insurance Found 08/17/2023 11/24/2024 2 2 Reason Comments Follow Up Specialty Diagnoses / Procedures Referred By Contac t Referred To Contact [facility] Diagnoses Headaches Procedures Headache follow up Self Brock Wang PA-C [address] [phone] Referral ID Status Reason Start Date Expiration Date Visits Requested Visits Authorized [id number] Outside PCP OON/Self Pay Override 10/28/2023 02/04/2025 1 0 Reason Comments Flu Vaccine Reason Comments Medical Clearance Request Care Teams (unrecognized sec tion and content) Crystal Calibrator Relationship Specialty Start Date End Date Siobhan Evangelista MD [address] [place] [address] Referring Family [facility] 08/20/21 Crystal Calibrator Relationship Specialty Start Date End Date Siobhan Evangelista MD [address] [phone] Referring Family [facility] 08/20/21 Crystal Calibrator Relationship Specialty Start Date End Date Siobhan Evangelista MD [address] [phone] Referring Family [facility] 08/20/21 Crystal Calibrator Relationship Specialty Start Date End Date Siobhan Evangelista MD [address] [phone] Referring Family Practice 08/20/21 Crystal Calibrator Relationship Specialty Start Date End Date Siobhan Evangelista MD [address] [facility] Referring Family Practice 08/20/21 Crystal Calibrator Relationship Specialty Start Date End Date Siobhan Evangelista MD [address] [place] [address] Referring Family Practice 08/20/21 Team Status: Inactive Member Role Status Dates Soibhan Evangelista MD Primary Care Provider Active Stanislav Gottlieb MD Admit Provider Active Padmini Moreno , Attending Provider Active Liv Townsend MD Other Provider Active Gavin Lacey , Other Provider Active Team Status: Active Member Role Status Dates Siobhan Evangelista MD Primary Care Provider Active Crystal Calibrator Relationship Specialty Start Date End Date Siobhan Evangelista MD [address] [facility] [place] [address] Referring Family Medicine 08/20/21 Crystal Calibrator Relationship Specialty Start Date End Date Siobhan Evangelista MD [address] [place] [facility] [place] [address] Referring Family Medicine 08/20/21 Crystal Calibrator Relationship Specialty Start Date End Date Siobhan Evangelista MD [address] [place] [address] Referring Family Medicine 08/20/21 Team Status: Inactive Member Role Status Dates Carlito Mae PA-C Emergency Provider Active Siobhan Evangelista MD Primary Care Provider Active Crystal Calibrator Relationship Specialty Start Date End Date Siobhan Evangelista MD [address] [place] [facility] [place] [address] PCP - General Family Medicine 01/22/22 Siobhan Evangelista MD [address] [facility] [place] [address] Referring Family Medicine 08/20/21 Crystal Calibrator Relationship Specialty Start Date End Date Siobhan Evangelista MD [address] [place] [facility] [place] [address] PCP - General Family Medicine 01/22/22 Siobhan Evangelista MD [address] [facility] [place] [address] Referring Family Medicine 08/20/21 Crystal Calibrator Relationship Specialty Start Date End Date Siobhan Evangelista MD [address] [place] [facility] [place] [address] PCP - General Family Medicine 01/22/22 Siobhan Evangelista MD [address] [place] [facility] [place] [address] Referring Family Medicine 08/20/21 Crystal Calibrator Relationship Specialty Start Date End Date Siobhan Evangelista MD [address] [place] [facility] [place] [address] PCP - General Family Medicine 01/22/22 Siobhan Evangelista MD [address] [place] [facility] [place] [address] Referring Family Medicine 08/20/21 Crystal Calibrator Relationship Specialty Start Date End Date Siobhan Evangelista MD [address] [facility] [place] [address] PCP - General Family Medicine 01/22/22 Siobhan Evangelista MD [address] [place] [facility] [place] [address] Referring Family Medicine 08/20/21 Crystal Calibrator Relationship Specialty Start Date End Date Siobhan Evangelista MD [address] [facility] [place] [address] PCP - General Family Medicine 01/22/22 Siobhan Evangelista MD [address] [facility] [place] [address] Referring Family Medicine 08/20/21 Crystal Calibrator Relationship Specialty Start Date End Date Siobhan Evangelista MD [address] [place] [address] PCP - General Family Medicine 01/22/22 Siobhan Evangelista MD [address] [place] [facility] [place] [address] Referring Family Medicine 08/20/21 Crystal Calibrator Relationship Specialty Start Date End Date Siobhan Evangelista MD [address] [place] [address] PCP - General Family Medicine 01/22/22 Siobhan Evangelista MD [address] [place] [facility] [place] [address] Referring Family Medicine 08/20/21 Crystal Calibrator Relationship Specialty Start Date End Date Siobhan Evangelista MD [address] [place] [facility] [place] [address] PCP - General Family Medicine 01/22/22 Siobhan Evangelista MD [address] [place] [facility] [place] [address] Referring Family Medicine 08/20/21 Crystal Calibrator Relationship Specialty Start Date End Date Siobhan Evangelista MD [address] [place] [address] PCP - General Family Medicine 01/22/22 Siobhan Evangelista MD [address] [place] [facility] [place] [address] Referring Family Medicine 08/20/21 Crystal Calibrator Relationship Specialty Start Date End Date Siobhan Evangelista MD [address] [place] [facility] [place] [address] PCP - General Family Medicine 01/22/22 Siobhan Evangelista MD [address] [place] [facility] [place] [address] Referring Family Medicine 08/20/21 Crystal Calibrator Relationship Specialty Start Date End Date Siobhan Evangelista MD [address] [place] [address] PCP - General Family Medicine 01/22/22 Siobhan Evangelista MD [address] [place] [facility] [place] [address] Referring Family Medicine 08/20/21 Crystal Calibrator Relationship Specialty Start Date End Date Siobhan Evangelista MD [address] [place] [address] PCP - General Family Medicine 01/22/22 Siobhan Evangelista MD Referring Family Medicine 08/20/21 Crystal Calibrator Relationship Specialty Start Date End Date Siobhan Evangelista MD [address] [place] [facility] [place] [address] PCP - General Family Medicine 01/22/22 Siobhan Evangelista MD Referring Family Medicine 08/20/21 Crystal Calibrator Relationship Specialty Start Date End Date Siobhan Evangelista MD [address] [place] [facility] [place] [address] PCP - General Family Medicine 01/22/22 Siobhan Evangelista MD Referring Family Medicine 08/20/21 Crystal Calibrator Relationship Specialty Start Date End Date Siobhan Evangelista MD [address] [place] [facility] [place] [address] PCP - General Family Medicine 01/22/22 Siobhan Evangelista MD Referring Family Medicine 08/20/21 Siobhan Evangelista MD [address] [place] [facility] [place] [address] Referring Family Medicine 12/04/22 Crystal Calibrator Relationship Specialty Start Date End Date Siobhan Evangelista MD [address] [place] [facility] [place] [address] PCP - General Family Medicine 01/22/22 Siobhan Evangelista MD Referring Family Medicine 08/20/21 Siobhan Evangelista MD [address] [place] [facility] [place] [address] Referring Family Medicine 12/04/22 Crystal Calibrator Relationship Specialty Start Date End Date Siobhan Evangelista MD [address] [place] [facility] [place] [address] PCP - General Family Medicine 01/22/22 Siobhan Evangelista MD Referring Family Medicine 08/20/21 Siobhan Evangelista MD [address] [place] [facility] [place] [address] Referring Family Medicine 12/04/22 Crystal Calibrator Relationship Specialty Start Date End Date Siobhan Evangelista MD [address] [place] [facility] [place] [address] PCP - General Family Medicine 01/22/22 Siobhan Evangelista MD Referring Family Medicine 08/20/21 Siobhan Evangelista MD [address] [place] [facility] [place] [address] Referring Family Medicine 12/04/22 Crystal Calibrator Relationship Specialty Start Date End Date Siobhan Evangelista MD [address] [place] [facility] [place] [address] PCP - General Family Medicine 01/22/22 Siobhan Evangelista MD Referring Family Medicine 08/20/21 Siobhan Evangelista MD [address] [place] [facility] [place] [address] Referring Family Medicine 12/04/22 Crystal Calibrator Relationship Specialty Start Date End Date Siobhan Evangelista MD [address] [place] [address] PCP - General Family Medicine 01/22/22 Siobhan Evangelista MD Referring Family Medicine 08/20/21 Siobhan Evangelista MD [address] [place] [address] Referring Family Medicine 12/04/22 Crystal Calibrator Relationship Specialty Start Date End Date Siobhan Evangelista MD [address] [phone] PCP - General Family Medicine 01/22/22 Siobhan Evangelista MD Referring Family Medicine 08/20/21 Siobhan Evangelista MD [address] [place] [address] Referring Family Medicine 12/04/22 Crystal Calibrator Relationship Specialty Start Date End Date Siobhan Evangelista MD [address] [place] [address] PCP - General Family Medicine 01/22/22 Siobhan Evangelista MD Referring Family Medicine 08/20/21 Siobhan Evangelista MD [address] [place] [address] Referring Family Medicine 12/04/22 Irina Finley DO [address] [place] [address] Primary Staff Physician Cardiology 08/17/23 Crystal Calibrator Relationship Specialty Start Date End Date Siobhan Evangelista MD [address] [place] [address] PCP - General Family Medicine 01/22/22 Siobhan Evangelista MD Referring Family Medicine 08/20/21 Siobhan Evangelista MD [address] [phone] Referring Family Medicine 12/04/22 Irina Finley DO [address] [place] [address] Primary Staff Physician Cardiology 08/17/23 Crystal Calibrator Relationship Specialty Start Date End Date Siobhan Evangelista MD [address] [phone] PCP - General Family Medicine 01/22/22 Siobhan Evangelista MD Referring Family Medicine 08/20/21 Siobhan Evangelista MD [address] [phone] Referring Family Medicine 12/04/22 Irina Finley DO [address] [place] [address] Primary Staff Physician Cardiology 08/17/23 Crystal Calibrator Relationship Specialty Start Date End Date Siobhan Evangelista MD [address] [place] [address] PCP - General Family Medicine 01/22/22 Siobhan Evangelista MD Referring Family Medicine 08/20/21 Siobhan Evangelista MD [address] [place] [address] Referring Family Medicine 12/04/22 Irina Finley DO [address] [place] [address] Primary Staff Physician Cardiology 08/17/23 Crystal Calibrator Relationship Specialty Start Date End Date Siobhan Evangelista MD [address] [place] [address] PCP - General Family Medicine 01/22/22 Siobhan Evangelista MD Referring Family Medicine 08/20/21 Siobhan Evangelista MD [address] [place] [address] Referring Family Medicine 12/04/22 Irina Finley DO [address] [place] [address] Primary Staff Physician Cardiology 08/17/23 Crystal Calibrator Relationship Specialty Start Date End Date Siobhan Evangelista MD [address] [place] [address] PCP - General Family Medicine 01/22/22 Siobhan Evangelista MD Referring Family Medicine 08/20/21 Siobhan Evangelista MD [address] [place] [address] Referring Family Medicine 12/04/22 Irina Finley DO [address] [place] [address] Primary Staff Physician Cardiology 08/17/23 Crystal Calibrator Relationship Specialty Start Date End Date Siobhan Evangelista MD [address] [place] [address] PCP - General Family Medicine 01/22/22 Siobhan Evangelista MD Referring Family Medicine 08/20/21 Siobhan Evangelista MD [address] [place] [address] Referring Family Medicine 12/04/22 Irina Finley DO [address] [place] [address] Primary Staff Physician Cardiology 08/17/23 Crystal Calibrator Relationship Specialty Start Date End Date Siobhan Evangelista MD [address] [place] [address] PCP - General Family Medicine 01/22/22 Siobhan Evangelista MD Referring Family Medicine 08/20/21 Siobhan Evangelista MD [address] [place] [address] Referring Family Medicine 12/04/22 Irina Finley DO [address] [place] [address] Primary Staff Physician Cardiology 08/17/23 Crystal Calibrator Relationship Specialty Start Date End Date Siobhan Evangelista MD [address] [facility] [place] [address] PCP - General Family Medicine 02/11/24 Crystal Calibrator Relationship Specialty Start Date End Date Siobhan Evangelista MD [address] [place] [address] PCP - General Family Medicine 01/22/22 Siobhan Evangelista MD Referring Family Medicine 08/20/21 Siobhan Evangelista MD [address] [place] [address] Referring Family Medicine 12/04/22 Ramone Irina DO [address] [address] [place] [address] Primary Staff Physician Cardiology 08/17/23 FOR RECORDS PERTAINING TO PATIENTS WHO ARE OR HAVE BEEN ENROLLED IN A CHEMICAL DEPENDENCY/SUBSTANCEABUSE PROGRAM, SOME INFORMATION MAY BE OMITTED. This clinical summary was aggregated from multiple sources. Caution should be exercised in using it in the provision of clinical care. This summary normalizes information from multiple sources, and as a consequence, information in this document may materially change the coding, format and clinical context of patient data. In addition, data may be omitted in some cases. CLINICAL DECISIONS SHOULD BE BASED ON THE PRIMARY CLINICAL RECORDS. [facility]. provides no warranty or guarantee of the accuracy or completeness of information in this document.
[2024-02-28 12:15] VITALS: BP 108/81; PULSE 73; TEMP 36.3; O2SAT 99; BMI 23.8
[2024-02-28] MEDS: 0.9 % SODIUM CHLORIDE 500 ML 50 ML IV (12:43)
[2024-02-28] MEDS: CEFAZOLIN SODIUM 2 GM/50 ML D5W PREMIX IV (13:00)
[2024-02-28] MEDS: LIDOCAINE HCL 1%-EPINEPHRINE 1:100,000 20 ML MDV 10 ML INJ (13:15)
[2024-02-28] MEDS: BUPIVACAINE HCL 0.5% PF 50 MG/10 ML VIAL 5 ML INJ (13:15)
[2024-02-28 13:56] VITALS: BP 111/72; PULSE 72; TEMP 36.2; O2SAT 100
--- NOTE | 2024-02-28 13:57 | P.ORPRC_ITS ---
Procedure Note Date of procedure: 02/28/24 Pre-op diagnosis: Right dorsal wrist mass Post-op diagnosis: same as pre-op Procedure: Operation: Right wrist mass excision Detailed description of procedure: After informed consent was obtained the patient was brought to the operating room where a monitored anesthetic was administered. Preoperatively the mass was marked. The soft tissue surrounding the mass was infiltrated with 7 mL 1% lidocaine with epinephrine combined with 3 mL 0.5% Marcaine plain. A well- padded proximal arm tourniquet was placed on the right arm was prepped and draped in the usual sterile fashion. There was elevated, exsanguinated, and the tourniquet was inflated to 200 mmHg. 2 cm incision made directly overlying the dorsal wrist mass. Blunt dissection was carried down through soft tissue. Extensor tendons were retracted mass was identified and found to be multiloculated. It was bluntly dissected from soft tissue. The mass tract down to the dorsal wrist joint. Small capsulotomy was performed and the mass was removed. Mass was sent for pathology. It was consistent with a ganglion cyst. Tourniquet was deflated and bipolar was achieved for electrocautery. Wound was irrigated and closed with absorbable suture in layers. Steri-Strips and sterile dressing were placed. Patient was brought to the recovery room in stable condition. There were no intraoperative or immediate postoperative complications. Anesthesia: MAC and local Surgeon: Beto Koo Estimated blood loss (mL): 1 Pathology: none sent Condition: stable Disposition: PACU
[2024-02-28 14:11] VITALS: BP 113/68; PULSE 74; O2SAT 99
[2024-02-28 14:26] VITALS: BP 126/74; PULSE 68; O2SAT 100
== END 2024-02-28 14:40 | disposition home or self-care (01) ==
PROVIDERS: PCP Family Medicine; Visit Provider Orthopaedic Surgery
PROC: (CPT 01810; principal; 2024-02-28 13:20)
DX: M67.431 Ganglion, right wrist (principal); Z90.710 Acquired absence of both cervix and uterus; Z87.891 Personal history of nicotine dependence; I10 Essential (primary) hypertension; G90.A Postural orthostatic tachycardia syndrome [POTS]
CPT/HCPCS: 01810; 25111; 88304; J0665; J0690; J1100; J1885; J2250; J2704

== ENCOUNTER 2024-05-11 14:07 | Emergency (ER) | payer OTHER, SELFPAY ==
[2024-05-11 14:11] VITALS: BP 129/86; PULSE 76; TEMP 37.2; O2SAT 99; BMI 23.4
--- NOTE | 2024-05-11 14:22 | CT_ITS ---
[address] [address] Patient Name: PASTOR HELLER MRN: [id number] date: 1990 Sex: F Assigned Patient Location: ER Current Patient Location: Accession/Order Number: [id number] Exam Date: 05/11/2024 14:32 Report Date: 05/11/2024 15:00 At the request of: ANA BOOTHE Procedure: CT abdomen pelvis w con EXAMINATION: CT abdomen pelvis w con HISTORY: Abdominal pain, vomiting COMPARISON: CT abdomen pelvis 12/10/2020 TECHNIQUE: Axial, Coronal, and Sagittal images were obtained without and/or with IV contrast as indicated by examination type. Dose reduction techniques were achieved by using automated exposure control and/or adjustment of mA and/or kV according to patient size and/or use of iterative reconstruction technique. FINDINGS: LUNG BASES: No visible pulmonary or pleural disease. LIVER: No enlargement, atrophy, suspicious density, or significant focal lesion. BILIARY: Incompletely distended, but suspect mild wall thickening and slightly edematous changes of adjacent fat. No calcified stones or abnormal duct dilation. PANCREAS: No lesion, fluid collection, or abnormal duct dilatation. SPLEEN: No enlargement or focal lesion. ADRENALS: No mass or enlargement. KIDNEYS: No mass, obstruction, or calcification. BOWEL/MESENTERY: Mild circumference wall thickening of transverse colon without appreciable surrounding inflammatory changes. Normal appendix. AORTA/VASCULAR: No aneurysm or dissection. RETROPERITONEUM: No mass or adenopathy. LYMPH NODES: No adenopathy. URINARY BLADDER: Incompletely distended but suspect mild circumferential wall thickening. PELVIC ORGANS: Hysterectomy. ABDOMINAL WALL: No mass or hernia. BONES: No bony lesion or fracture. OTHER: Negative. CT/CT abdomen pelvis w con IMPRESSION: 1. Suspect acute cholecystitis. Consider ultrasound evaluation. 2. Possible mild colitis of transverse colon. 3. Possible cystitis (borderline mild wall thickening of urinary bladder). Electronically authenticated by: FLACO LOCKETT Date: 05/11/2024 15:00
--- NOTE | 2024-05-11 14:23 | ED.ABDPAIN1 ---
HPI - Abdominal Pain General Chief Complaint: Abdominal Pain Stated Complaint: ABDOMEN PAIN, VOMMITING Time Seen by Provider: 05/11/24 14:09 Source: patient Mode of arrival: ambulance History of Present Illness HPI narrative: Patient is a 33-year-old female with a previous history of hysterectomy who presents to the emergency department for a 5-day history of constipation, diffuse low abdominal pain and nausea and vomiting. She states she has been constipated and feels when she eats it makes the pain worse in her low abdomen. She has been using multiple pxnt-jiv-enufiuo remedies. 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 She had an appointment with her primary care provider today, but she states she canceled the appointment and came to the emergency department instead. She has had no fevers, urinary symptoms. She has a history of acid reflux. Related Data Home Medications ?Medication ?Instructions ?Recorded ?Confirmed atomoxetine 25 mg capsule 25 mg PO DAILY 02/23/24 02/28/24 (Strattera) cholecalciferol (vitamin D3) 125 125 mcg PO DAILY 02/23/24 02/28/24 mcg (5,000 unit) capsule coenzyme Q10 200 mg capsule (Co 200 mg PO DAILY 02/23/24 02/28/24 Q-10) conjugated estrogens 0.9 mg tablet 0.9 mg PO DAILY 02/23/24 02/28/24 (Premarin) hyoscyamine sulfate 0.125 mg tablet 0.125 mg PO Q4H PRN dyspepsia 02/23/24 02/28/24 methocarbamol 500 mg tablet 500 mg PO BID PRN muscle spasm 02/23/24 02/28/24 multivitamin (Daily Multi-Vitamin 1 tab PO DAILY 02/23/24 02/28/24 tablet) omega 0-jpj-kmn-fish oil 1,200 mg 1 cap PO DAILY 02/23/24 02/28/24 (144 mg-216 mg) capsule (Fish Oil) ondansetron 4 mg disintegrating 4 mg PO Q8H PRN nausea and vomiting 02/23/24 02/28/24 tablet propranolol 60 mg capsule,24 60 mg PO Q24H 02/23/24 02/28/24 hr,extended release vitamin b12 gummy 02/23/24 Previous Rx's ?Medication ?Instructions ?Recorded hydrocodone 5 mg-acetaminophen 325 1 tab PO Q6H PRN pain #14 tabs 02/28/24 mg tablet ciprofloxacin HCl 500 mg tablet 500 mg PO BID #20 tabs 05/11/24 (Cipro) dicyclomine 20 mg tablet 20 mg PO QID PRN abdominal pain 05/11/24 #12 tabs metronidazole 500 mg tablet 500 mg PO Q12H 10 days #20 tabs 05/11/24 ondansetron 4 mg disintegrating 4 mg PO Q6H PRN nausea and 05/11/24 tablet vomiting #12 tabs oxycodone-acetaminophen 5 mg-325 1 tab PO Q6H PRN pain 3 days #15 05/11/24 mg tablet (Percocet) tabs Allergies Allergy/AdvReac Type Severity Reaction Status Date / Time adhesive tape Allergy Rash Verified 02/23/24 08:29 morphine Allergy tachycardia Verified 02/23/24 08:29 sulfamethoxazole (From Allergy Hives Verified 02/23/24 08:29 Bactrim) trimethoprim (From Bactrim) Allergy Hives Verified 02/23/24 08:29 Review of Systems ROS Constitutional Denies: fever or chills Cardiovascular Denies: chest pain Respiratory Denies: shortness of breath Gastrointestinal Reports: abdominal pain, nausea, vomiting and constipation; Denies: diarrhea Genitourinary Denies: painful urination Musculoskeletal Denies: back pain Integumentary/Breast Denies: rash Neurological Denies: numbness in extremities or weakness in extremities Hematologic/Lymphatic Denies: easy bruising or easy bleeding [facility] Medical History (Updated 05/11/24 @ 16:43 by PAYTON Molina) Ganglion cyst of wrist ?M67.439 - Ganglion, unspecified wrist (ICD-10) Neurologic abnormality ?R29.818 - Other symptoms and signs involving the nervous system (ICD-10) Paresthesias ?R20.2 - Paresthesia of skin (ICD-10) Syncope ?R55 - Syncope and collapse (ICD-10) POTS (postural orthostatic tachycardia syndrome) ?G90.A - Postural orthostatic tachycardia syndrome [POTS] (ICD-10) COVID-19 long hauler ?U09.9 - Post COVID-19 condition, unspecified (ICD-10) Urinary frequency ?R35.0 - Frequency of micturition (ICD-10) Abdominal pain ?R10.9 - Unspecified abdominal pain (ICD-10) ADHD ?F90.9 - Attention-deficit hyperactivity disorder, unspecified type (ICD-10) Anemia (2016) ?D64.9 - Anemia, unspecified (ICD-10) Depression ?F32.A - Depression, unspecified (ICD-10) Anxiety ?F41.9 - Anxiety disorder, unspecified (ICD-10) COVID-19 (2020) ?U07.1 - COVID-19 (ICD-10) Vertigo ?R42 - Dizziness and giddiness (ICD-10) Migraine ?G43.909 - Migraine, unspecified, not intractable, without status migrainosus (ICD-10) Pelvic pain ?R10.2 - Pelvic and perineal pain (ICD-10) Seasonal allergies ?J30.2 - Other seasonal allergic rhinitis (ICD-10) Ureteral stone ?N20.1 - Calculus of ureter (ICD-10) Kidney stones ?N20.0 - Calculus of kidney (ICD-10) Hypertension ?I10 - Essential (primary) hypertension (ICD-10) Palpitations ?R00.2 - Palpitations (ICD-10) IBS (irritable bowel syndrome) ?K58.9 - Irritable bowel syndrome, unspecified (ICD-10) GERD (gastroesophageal reflux disease) ?K21.9 - Gastro-esophageal reflux disease without esophagitis (ICD-10) Constipation ?K59.00 - Constipation, unspecified (ICD-10) Postoperative nausea and vomiting ?R11.2 - Nausea with vomiting, unspecified (ICD-10) ?Z98.890 - Other specified postprocedural states (ICD-10) S/P extracorporeal shock wave therapy ?Z98.890 - Other specified postprocedural states (ICD-10) Surgical History (Updated 02/23/24 @ 08:46 by Hawa Pantoja NP) History of colonoscopy ?Z98.890 - Other specified postprocedural states (ICD-10) History of esophagogastroduodenoscopy (EGD) ?Z98.890 - Other specified postprocedural states (ICD-10) History of breast biopsy ?Z98.890 - Other specified postprocedural states (ICD-10) History of wisdom tooth extraction ?K08.409 - Partial loss of teeth, unspecified cause, unspecified class (ICD-10) S/P ureteral stent placement ?Z96.0 - Presence of urogenital implants (ICD-10) History of carpal tunnel release ?Z98.890 - Other specified postprocedural states (ICD-10) History of hysterectomy ?Z90.710 - Acquired absence of both cervix and uterus (ICD-10) Family History (Updated 02/23/24 @ 08:46 by Hawa Pantoja NP) Other Family history of aneurysm Family history of breast cancer Family history of hypertension Family history of myocardial infarction Family history of renal failure Family history of seizures Social History Within the past year, how often did you have a drink containing alcohol: never Score interpretation: A score less than 3 is consistent with normal alcohol consumption. Smoking status: Former smoker Non-prescribed substance use: denies use Previous occupational history: [employer] Highest level of school completed/degree received: some college, no degree Little interest or pleasure in doing things: not at all Feeling down, depressed, or hopeless: not at all Exam Narrative Exam Narrative: Gen.: Awake, alert, in no distress Head: Normocephalic, atraumatic ENT: Moist mucous membranes Respiratory: No respiratory distress, lungs clear bilaterally Cardio: Regular rate and rhythm Gastrointestinal: Abdomen is soft, nondistended and diffusely tender to palpation with voluntary guarding, no rebound Extremities: Moves extremities equally Psych: Normal mood and affect Neuro: No focal neuro deficit Skin: Warm, dry, intact Constitutional Vital Signs, click to edit/add: Last Vital Signs Temp 98.9 F 05/11/24 14:11 Pulse 72 05/11/24 15:59 Resp 18 05/11/24 15:59 BP 111/70 05/11/24 15:59 Pulse Ox 100 05/11/24 15:59 O2 Del Method Room Air 05/11/24 15:59 Course Vital Signs Vital signs: Vital Signs Temperature 98.9 F 05/11/24 14:11 Pulse Rate 76 05/11/24 14:11 Respiratory Rate 16 05/11/24 14:11 Blood Pressure 129/86 05/11/24 14:11 Pulse Oximetry 99 05/11/24 14:11 Temperature 98.9 F 05/11/24 14:11 Pulse Rate 72 05/11/24 15:59 Respiratory Rate 18 05/11/24 15:59 Blood Pressure 111/70 05/11/24 15:59 Pulse Oximetry 100 05/11/24 15:59 Oxygen Delivery Method Room Air 05/11/24 15:59 MDM - Abdominal Pain MDM Narrative Medical decision making narrative: Patient was initially medicated with IV fluids, Levsin, Toradol, Zofran. She reported continued moderate pain and was given additional Dilaudid and Phenergan. Laboratory studies show minimal leukocytosis but otherwise unremarkable LFTs and bilirubin. CT scan shows mild colitis of the transverse colon consistent with the patient's clinical presentation, however the radiologist had suspicion for possible acute cholecystitis. Patient ate 4 hours ago so an ultrasound was performed but was limited. Radiologist does not find anything suspicious for acute cholecystitis or gallstones. Patient is not tender in the right upper quadrant. She was made aware of this questionable finding. I discussed the case with Dr. Pan, he is in agreement that the patient can be treated with oral antibiotics for colitis, first dose of Cipro and Flagyl were given in the emergency department which the patient tolerated. She is resting more comfortably on reevaluation. She is in agreement with treatment plan. She can be followed up in the office tomorrow for reevaluation. Short course of analgesics, Bentyl, Zofran, Cipro and Flagyl were given for home. Patient is hemodynamically stable with unremarkable vital signs at discharge. Return to the emergency department if symptoms change or worsen SUPERVISED APC VISIT, PHYSICIAN ATTESTATION: Based on the medical record the care appears appropriate. ? Medical Records Attestation: I reviewed the patient's medical records. Lab Data Attestation: I reviewed the patient's lab results. Labs: Lab Results 05/11/24 05/11/24 Range/Units 14:25 14:48 WBC 13.7 H (4.0-11.0) 10^3/uL RBC 4.20 (4.20-5.40) 10^6/uL Hgb 13.1 (12.0-16.0) g/dL Hct 39.2 (36.0-48.0) % MCV 93.3 (81.0-99.0) fL MCH 31.2 (26.7-34.0) pg MCHC 33.4 (29.9-35.2) g/dL RDW 11.8 (11.0-15.0) % Plt Count 261 (150-450) 10^3/uL MPV 13.5 (9.5-13.5) fL Neut % (Auto) 71.2 (43.0-75.0) % Lymph % (Auto) 19.5 L (20.5-60.0) % [place] % (Auto) 5.4 (1.7-12.0) % Eos % (Auto) 2.8 (0.9-7.0) % Baso % (Auto) 0.7 (0.2-2.0) % Neut # (Auto) 9.8 H (1.4-6.5) 10^3/uL Lymph # (Auto) 2.7 (1.2-3.8) 10^3/uL [place] # (Auto) 0.7 (0.3-0.8) 10^3/uL Eos # (Auto) 0.4 (0.0-0.7) 10^3/uL Baso # (Auto) 0.1 (0.0-0.1) 10^3/uL Abs Immat Gran (auto) 0.05 H (0.00-0.03) 10^3/uL Imm/Tot Granulo (auto) 0.4 (0.0-0.5) % Sodium 141 (136-145) mmol/L Potassium 3.8 (3.5-5.1) mmol/L Chloride 101 (98-107) mmol/L Carbon Dioxide 30.9 (21.0-32.0) mmol/L Anion Gap 12.9 BUN 12.0 (7.0-18.0) mg/dL Creatinine 0.92 (0.55-1.02) mg/dL Est GFR ( Amer) >60 (>=60 mL/min/1.73m^2) Est GFR (Non-Af Amer) >60 (>=60 mL/min/1.73m^2) BUN/Creatinine Ratio 13.0 Glucose 78 (74-106) mg/dL Lactate 1.2 (0.4-2.0) mmol/L Calcium 9.1 (8.5-10.1) mg/dL Total Bilirubin 0.3 (0.2-1.0) mg/dL AST 17 (15-37) U/L ALT 22 (14-59) U/L Alkaline Phosphatase 69 (46-116) U/L Total Protein 7.9 (6.4-8.2) g/dL Albumin 4.0 (3.4-5.0) g/dL Globulin 3.9 g/dL Albumin/Globulin Ratio 1.0 Lipase 36.0 (16.0-77.0) U/L Urine Color Lt. yellow (YELLOW) Urine Clarity Clear (CLEAR) Urine pH 7.5 (5.0-9.0) Ur Specific [place] 1.010 (1.005-1.025) Urine Protein Negative (NEG/TRACE) mg/dL Urine Glucose (UA) Negative (NEGATIVE) mg/dL Urine Ketones Negative (NEGATIVE) mg/dL Urine Occult Blood Negative (NEGATIVE) Urine Nitrite Negative (NEGATIVE) Urine Bilirubin Negative (NEGATIVE) Urine Urobilinogen 0.2 (0.2-1.0) EU/dL Ur Leukocyte Esterase Negative (NEGATIVE) Urine RBC 0-2 (0-2) #/HPF Urine WBC 0-2 A (NONE SEEN) #/HPF Ur Squamous Epith Cells Few A (NONE/RARE) #/LPF Urine Crystals None seen (None Seen) #/HPF Urine Bacteria Trace A (NONE SEEN) #/HPF Urine Casts None seen (NONE SEEN) #/LPF Ur Culture Indicated? No Imaging Data CT scan - abdomen: Attestation: I have reviewed the pertinent imaging results. Radiologist's impression: ITS Impressions Abdomen/Pelvis CT 05/11/24 14:22 IMPRESSION: 1. Suspect acute cholecystitis. Consider ultrasound evaluation. 2. Possible mild colitis of transverse colon. 3. Possible cystitis (borderline mild wall thickening of urinary bladder). Electronically authenticated by: FLACO LOCKETT Date: 05/11/2024 15:00 Upper Quadrant Ultrasound 05/11/24 15:07 IMPRESSION: 1. Markedly contracted gallbladder; patient ate recently as stomach is distended with large amount of food on the recent CT 2 hours ago. No gallstones or sonographic findings for acute cholecystitis. 2. Normal caliber common bile duct at 3 mm. 3. Right kidney without hydronephrosis. Electronically authenticated by: JOHNIE GODFREY Date: 05/11/2024 16:17 Discharge Plan Discharge Chief Complaint: Abdominal Pain Clinical Impression: Abdominal pain, Colitis, Nausea & vomiting Patient Disposition: Home, Self-Care Time of Disposition Decision: 16:43 Condition: Good Prescriptions / Home Meds: New metronidazole 500 mg tablet 500 mg PO Q12H 10 Days Qty: 20 0RF ciprofloxacin HCl [Cipro] 500 mg tablet 500 mg PO BID Qty: 20 0RF oxycodone-acetaminophen [Percocet] 5-325 mg tablet 1 tab PO Q6H PRN (Reason: pain) 3 Days Qty: 15 0RF Rx Instructions: DX: R10.9 dicyclomine 20 mg tablet 20 mg PO QID PRN (Reason: abdominal pain) Qty: 12 0RF ondansetron 4 mg tablet,disintegrating 4 mg PO Q6H PRN (Reason: nausea and vomiting) Qty: 12 0RF No Action Premarin 0.9 mg tablet 0.9 mg PO DAILY Rx Instructions: cyclically propranolol 60 mg capsule,extended release 24 hr 60 mg PO Q24H atomoxetine [Strattera] 25 mg capsule 25 mg PO DAILY cholecalciferol (vitamin D3) 125 mcg (5,000 unit) capsule 125 mcg PO DAILY coenzyme Q10 [Co Q-10] 200 mg capsule 200 mg PO DAILY omega 8-mck-czu-fish oil [Fish Oil] 1,200 (144-216) mg capsule 1 cap PO DAILY vitamin b12 gummy multivitamin [Daily Multi-Vitamin] Tablet 1 tab PO DAILY methocarbamol 500 mg tablet 500 mg PO BID PRN (Reason: muscle spasm) hyoscyamine sulfate 0.125 mg tablet 0.125 mg PO Q4H PRN (Reason: dyspepsia) ondansetron 4 mg tablet,disintegrating 4 mg PO Q8H PRN (Reason: nausea and vomiting) hydrocodone-acetaminophen 5-325 mg tablet 1 tab PO Q6H PRN (Reason: pain) Qty: 14 0RF Print Language: Amharic Instructions: Acute Abdominal Pain (ED), Colitis (ED) Referrals: Braulio Pan MD [Primary Care Provider] - 1 week
[2024-05-11 14:37] LABS: Bilirubin Urine NEGATIVE (NEGATIVE); Blood Urine NEGATIVE (NEGATIVE); Clarity Urine CLEAR (CLEAR); Color Urine LT. YELLOW (YELLOW); Glucose Urine UA NEGATIVE (NEGATIVE); Ketones Urine NEGATIVE (NEGATIVE); Leukocyte Esterase Urine NEGATIVE (NEGATIVE); Nitrite Urine NEGATIVE (NEGATIVE); Protein Urine NEGATIVE (NEG/TRACE); Urobilinogen Urine 0.2 EU/dL (0.2-1.0); pH Urine 7.5 (5.0-9.0)
[2024-05-11] MEDS: HYOSCYAMINE SULFATE 0.125 MG TAB.SUBL SL (14:40)
[2024-05-11 14:41] LABS: Basophils Absolute Auto 0.1 10^3/uL (0.0-0.1); Basophils Percent Auto 0.7 % (0.2-2.0); Eosinophils Absolute Auto 0.4 10^3/uL (0.0-0.7); Eosinophils Percent Auto 2.8 % (0.9-7.0); Hematocrit 39.2 % (36.0-48.0); Hemoglobin 13.1 g/dL (12.0-16.0); Immature Granulocytes Abs Auto 0.05 10^3/uL (0.00-0.03); Immature Granulocytes Pct Auto 0.4 % (0.0-0.5); Lymphocytes Absolute Auto 2.7 10^3/uL (1.2-3.8); Lymphocytes Percent Auto 19.5 % (20.5-60.0); Mean Corpuscular HGB Conc 33.4 g/dL (29.9-35.2); Mean Corpuscular Hemoglobin 31.2 pg (26.7-34.0); Mean Corpuscular Volume 93.3 fL (81.0-99.0); Mean Platelet Volume 13.5 fL (9.5-13.5); Monocytes Absolute Auto 0.7 10^3/uL (0.3-0.8); Monocytes Percent Auto 5.4 % (1.7-12.0); Neutrophils Absolute Auto 9.8 10^3/uL (1.4-6.5); Neutrophils Percent Auto 71.2 % (43.0-75.0); Platelet Count 261 10^3/uL (150-450); Red Cell Distribution Width 11.8 % (11.0-15.0); White Blood Count 13.7 10^3/uL (4.0-11.0)
[2024-05-11] MEDS: KETOROLAC TROMETHAMINE 30 MG/ML VIAL IVP (14:41)
[2024-05-11] MEDS: ONDANSETRON PF 4 MG/2 ML VIAL IV (14:41)
[2024-05-11] MEDS: 0.9 % SODIUM CHLORIDE 1,000 ML 999 ML IV (14:41)
[2024-05-11 14:50] LABS: Bacteria Urine TRACE #/HPF (NONE SEEN); Cast Seen? NONE SEEN #/LPF (NONE SEEN); Crystals Seen? None Seen #/HPF (None Seen); RBC Urine 0-2 #/HPF (0-2); Squamous Epithelial Cell Urine FEW #/LPF (NONE/RARE); Urine Culture Indicated NO; WBC Urine 0-2 #/HPF (NONE SEEN)
[2024-05-11 14:58] LABS: Alanine Aminotransferase 22 U/L (14-59); Alkaline Phosphatase 69 U/L (46-116); Anion Gap 12.9; Aspartate Amino Transferase 17 U/L (15-37); Bilirubin Total 0.3 mg/dL (0.2-1.0); Calcium 9.1 mg/dL (8.5-10.1); Carbon Dioxide 30.9 mmol/L (21.0-32.0); Chloride 101 mmol/L (98-107); Estimated GFR (African America >60 (>=60 mL/min/1.73m^2); Estimated GFR (Non-African Ame >60 (>=60 mL/min/1.73m^2); Globulin 3.9 g/dL; Glucose 78 mg/dL (74-106); Potassium 3.8 mmol/L (3.5-5.1); Sodium 141 mmol/L (136-145); Total Protein 7.9 g/dL (6.4-8.2)
--- NOTE | 2024-05-11 15:07 | US_ITS ---
The [address] [address] Patient Name: PASTOR HELLER MRN: [id number] date: 1990 Sex: F Assigned Patient Location: ER Current Patient Location: ER Accession/Order Number: [id number] Exam Date: 05/11/2024 15:08 Report Date: 05/11/2024 16:17 At the request of: ANA BOOTHE Procedure: US right upper quadrant Ultrasound abdomen right upper quadrant HISTORY: Abnormal CT , right upper quadrant pain with nausea and vomiting. Patient is not nothing by mouth. Patient last ate recently. COMPARISON: CT 05/11/2024 TECHNIQUE: Dedicated transabdominal right upper quadrant ultrasound was performed. FINDINGS: Gallbladder markedly contracted. Gallbladder wall thickness is 3 mm that is artifactual due to contracted state. There is no discrete gallstone identified. No sludge is seen. No pericholecystic fluid is seen, and the sonographic Rosado's sign is negative. The proximal common bile duct measures 3 mm in diameter. There is no intrahepatic bile duct dilatation. The liver demonstrates normal echotexture and echogenicity. No discrete liver lesion seen. The visualized pancreas is normal. Portions of the pancreas are obscured by overlying bowel gas. The right kidney measures 10.8 x 4.8 x 4.5 cm. There is no hydronephrosis in the right kidney. There is no fluid in the right upper quadrant. US/US right upper quadrant IMPRESSION: 1. Markedly contracted gallbladder; patient ate recently as stomach is distended with large amount of food on the recent CT 2 hours ago. No gallstones or sonographic findings for acute cholecystitis. 2. Normal caliber common bile duct at 3 mm. 3. Right kidney without hydronephrosis. Electronically authenticated by: JOHNIE GODFREY Date: 05/11/2024 16:17
[2024-05-11 15:21] LABS: Lactate/Lactic Acid 1.2 mmol/L (0.4-2.0)
[2024-05-11 15:59] VITALS: BP 111/70; PULSE 72; O2SAT 100
[2024-05-11] MEDS: HYDROMORPHONE HCL 0.5 MG/0.5 ML SYRINGE IV (16:07)
[2024-05-11] MEDS: PROMETHAZINE HCL 12.5 MG in 0.9 % SODIUM CHLORIDE 50 ML 202 MG IV (16:09)
[2024-05-11] MEDS: METRONIDAZOLE 250 MG TABLET 500 MG PO (16:42)
[2024-05-11] MEDS: CIPROFLOXACIN HCL 500 MG TABLET PO (16:43)
== END 2024-05-11 17:41 | disposition home or self-care (01) ==
PROVIDERS: Physician Assistant; Emergency Provider Emergency Medicine; PCP Family Medicine
DX: K52.9 Noninfective gastroenteritis and colitis, unspecified (principal); R10.30 Lower abdominal pain, unspecified; Z90.710 Acquired absence of both cervix and uterus; K21.9 Gastro-esophageal reflux disease without esophagitis; Z87.891 Personal history of nicotine dependence; R11.2 Nausea with vomiting, unspecified
CPT/HCPCS: 36415; 74177; 76705; 80053; 81001; 83605; 83690; 85025; 96361; 96374; 96375; 99285; J1171; J1885; J2405; J2550; Q9967

== ENCOUNTER 2024-11-21 10:55 | Outpatient (OUT) | payer MEDICAID, SELFPAY ==
--- OUTSIDE RECORDS SUMMARY | 2024-04-24 04:10 | XMS_ITS ---
Author Organization [facility] Address [address] [place] [address] Care Team Providers Care Parachute Supervisor Name Role Phone Braulio Pan Primary Care Provider Beto Santacruz [facility] [phone] REASON FOR VISIT CHECK INCISION Encounters Encounter Location Date Provider Diagnosis [facility] [address] [place] [address] [address] [place] [address] 04/24/2024 Beto Koo Plan Of Treatment No Information Progress Notes * PASTOR HELLER RDOB: 1 (33 yo F)Acc No.[id number]:04/24/2024 Progress Notes Patient: PASTOR ALLEN Provider: Lay Koo MD :1990 A ge:33 Y S ex:Female Date:04/24/2024 Address:[address] [place], [place] [id number] Pcp:Braulio Pan Subjective: * Chief Complaints: * 1 . CHECK INCISION. * Medical History: Objective: * Vitals: Assessment: Plan: * Treatment: Forms: * Images: * Electronic signature of Simone Koo MD on 11/21/2024 at 11:03 AM EDT Sign off status: Pending * Provider: Lay Koo MD Date: 0 04/24/2024 Generated for Printi ng/Fajairog/eTransmitting on: 0 11/21/2024 11:03 AM EDT
--- OUTSIDE RECORDS SUMMARY | 2024-05-15 10:49 | XMS_ITS ---
Author Organization [facility] in [place] Address [address] [place] [address] Care Team Providers Care Crane Ladle Person Name Role Phone Maxim Jax Primary Care Provider Reason For Referral Diagnosis 1 Abdominal pain (R10. 9) Diagnosis 2 Colitis (K52.9) Referral Organization [facility] Referring Provider First Name Jax Referring Provider Last Name Maxim Ref[facility] Referred Provider Les Carltno Referred Provider Specialty General Surg moose Referral Priority Routine REASON FOR VISIT needs to see GI Encounters Encounter Location Date Provider Diagnosis [address] [address] 05/15/2024 Jax Pan Abdominal pain R10.9 and Colitis K52.9 Assessments Encounter Date Diagnosis (ICD Code) Assessment Notes Treatment Notes Treatment Clinical Notes Section Notes 05/15/2024 Abdominal pain (ICD-10 - R10.9) 05/15/2024 Colitis (ICD-10 - K52.9) Plan Of Treatment Referrals Referral Date Details 05/15/2024 05/15/2024, Les Carlton Progress Notes * Claudia HAWTHORNE RDOB: 1 (33 yo F)Acc No.[id number]:05/15/2024 Patient: Lay SHELTON Claudia Ryan :1990 A ge:33 Y S ex:Female Address:[address], [place] [address] Subjective: * Chief Complaints: * n eeds [...] Date: Generated for Tomás hunter/Sandra/eTransmitting on: 0 11/21/2024 11:02 AM EDT Consultation Request Notes Referral Date Referring Provider Referred Provider Not es 05/15/2024 Jax Pan Michael
--- OUTSIDE RECORDS SUMMARY | 2024-08-09 11:15 | XMS_ITS ---
Author Organization [facility] in [place] Address [address] [place] [address] Care Team Providers Care Bandmill Operator Name Role Phone Jax Pan Primary Care Provider Allergies Allergen (clinical drug ingredient) Drug/Non Drug [...] Status W/U Status Risk Notes Problem Pharyngitis (662005867) Pharyngitis (J02.9) Active confirmed Vital Signs Weight 117 lbs 08/09/2024 Height 60 in 08/09/2024 Blood pressure systolic 108 mm Hg 08/10/19 25 Blood pressure diastolic 64 mm Hg 025 Temperature 98.0 degrees Fahrenheit 08/10/19 25 BMI 22.85 kg/m2 08/09/2024 Encounters Encounter Location Date Provider Diagnosis [facility] [address] [place] [address] 08/09/2024 Jax Hoy Pharyngitis J02. 9 Assessments Encounter Date Diagnosis (ICD Code) Assessment Notes Treatment Notes Treatment Clinical Notes Section Notes 08/09/2024 Pharyngitis (ICD-10 - J02.9) Plan Of Treatment Medication Medication Name Sig Start Date Stop Date Notes Amoxicillin-Pot Clavulanate 875-125 MG 1 tablet Orally every 12 hrs for 10 days 08/09/2024 Progress Notes * Claudia HAWTHORNE RDOB: 1 (33 yo F)Acc No.[id number]:08/09/2024 Progress Note Patient: Claudia ALLEN Provider: Jumana Pan ([facility])MD :1990 A ge:33 Y S ex:Female Date:08/09/2024 Address:[address] [place], [place] [address] Check In:03:15 PM ESTCheck O ut:03:42 PM [...] partial right CTS Right wrist mass excision- [facility] 02/28/24Ganglion of right wrist 02/16/24Upper EGD 06/26/24colonoscopy [...] (Check Out) true * Provider: Jumana Pan ([facility])MD Date: 0 08/09/2024 Generated for Tomás hunter/Sandra/Travis on: 0 11/21/2024 11:03 AM EDT History and Physical Notes * [...]
--- OUTSIDE RECORDS SUMMARY | 2024-09-06 04:02 | XMS_ITS ---
Author Organization [facility] in [place] Address [address] [place] [address] Care Team Providers Care Tube Knitter Name Role Phone Jax Pan Primary Care Provider REASON FOR VISIT BV Medications Medication SIG (Take, Route, Fr equency, Duration) Notes Start Date End Date Status metroNIDAZOLE 500 MG 1 tablet Orally Thr ee times a day for 10 days 09/06/2024 Active Encounters Encounter Location Date Provider Diagnosis [facility] [address] [place] [address] 09/06/2024 Jax Pan Plan Of Treatment Medication Medication Name Sig Start Date Stop Date Notes metroNIDAZOLE 500 MG 1 tablet Orally Thr ee times a day for 10 days 09/06/2024 Progress Notes * Claudia HAWTHORNE RDOB: 1 (33 yo F)Acc No.[id number]:09/06/2024 Patient: Lay SHELTON, Claudia Ryan :1990 A ge:33 Y S ex:Female Address:[address] [place] [address] [address], [place] [address] * Refills Start metroNIDAZOLE Tablet, 500 MG, Orally, 30, 1 tablet, Three times a day, 10 days, Refills=0 * true * Date: Generated for Printi ng/Faxing/eTransmitting on: 0 11/21/2024 11:03 AM EDT
--- OUTSIDE RECORDS SUMMARY | 2024-11-21 11:01 | XMS_ITS | Encounter Summary ---
Author Organization [facility] Address [address] [place] [address] Care Team Providers Care Metal Wire Coating Operator Name Role Phone Braulio Pan MD Unavailable [phone] Braulio Pan MD Primary Care Provider +- Braulio Pan MD Unavailable [phone] Ruddy Pack DO Unavailable [phone] Source Comments In the event this information is protected by the Federal Confidentiality of Alcohol and Drug AbusePatient Records regulations: The Federal rules restrict any use of the information to criminally investigate or prosecute any alcohol or drug abuse patient.[facility] Encounter Details Date Type Department Care Team (Late st Contact Info) Description 03/04/2024 [place] [address] Provider, [facility] A Message from the [facility] Recovery Department Social History Tobacco Use Types Packs/Day Years Used Date Smoking Tobacco: Former Cigarettes 2 2011 Smokeless Tobacco: Never Alcohol Use Standard Drinks/Week Comments Not Currently 0 (1 standard drink = 0.6 oz pur e alcohol) Overall Financial Resource Strain (CARDIA) Answe r Date Recorded How hard is it for you to pa y for the very basics like food, housing, medical care, and heating? Not hard at all 01/22/2022 PHQ-2 Answer Date Recorded PHQ-2 score 0 06/07/2023 Hunger Vital Sign Answer Date Recorded Within the past 12 months, y ou worried that your food would run out before you got the money to buy more. Never true 01/23/20 22 Within the past 12 months, t he food you bought just didn't last and you didn't have money to get more. Never true 01/22/2022 PRAPARE - Transportation Answer Date Re corded In the past 12 months, has l ack of transportation kept you from medical appointments or from getting medications? No 01/10 In the past 12 months, has l ack of transportation kept you from meetings, work, or from getting things needed for daily living? No 01/22/2022 Housing Stability Vital Sign Answer Jerrod e Recorded In the last 12 months, was t here a time when you were not able to pay the mortgage or rent on time? No 01/22/2022 Number of Places Lived in the Last Year Not on f ile 01/22/2022 In the last 12 months, was t here a time when you did not have a steady place to sleep or slept in a correction (including now)? No 01/22/2022 Area Deprivation Index Answer Date Shaka rded National Score (1-100), lower number is lower ri sk 52 08/17/2023 State Score (1-10), lower number is lower risk 3 08/17/2023 Data from: https://www.neighborhoodatlas.medicine.[facility].edu/. Last address used for calculation [address] 08/17/2023 Comments No Sex and Gender Information Value Date Recorded Sex Assigned at Not on file Legal Sex Female 4:02 PM EDT Gender Identity Female 09/28/2021 10:35 PM EDT Sexual Orientation Straight 09/28/2021 10 :35 PM EDT documented as of this encounter Functional Status * Are you deaf or do you have serious difficulty hearing? Answer Date of Assessment Author No 01/24/2022 2:12 PM EDT Cora Ruiz RN * Are you blind or do you have serious difficulty seeing, even when wearing glasses? Answer Date of Assessment Author No 01/24/2022 2:12 PM EDT Cora Ruiz RN * Do you have serious difficulty walking or climbing stairs? Answer Date of Assessment Author No 01/24/2022 2:12 PM EDT Cora Ruiz RN * Do you have difficulty dressing or bathing? Answer Date of Assessment Author No 01/24/2022 2:12 PM EDT Cora Ruiz RN * Because of a physical, mental, or emotional condition, do you have difficulty doing errands alone such as visiting a doctor's office or shopping? Answer Date of Assessment Author No 01/24/2022 2:12 PM EDT Cora Ruiz RN documented as of this encounter Mental Status * Because of a physical, mental, or emotional condition, do you have serious difficulty concentrating, remembering, or making decisions? Answer Entry Date Author No 01/24/2022 2:12 PM EDT Cora Ruiz RN documented in this encounter Plan of Treatment Upcoming Encounters Date Type Department Care Team (Latest Contact Info) Description 12/29/2024 8:30 AM EDT [facility] Neurology Headache [facility] [address] [place] [address] Deric Fam APRN.CLINICAL TECHNICIAN [address] [place] [address] re-occuring migraines documented as of this encounter Goals Goal Patient Goal Type Associated Problems Recent Progress Patient-Stated? Author Blood Pressure < 130/80 Blood Pressure 126/80( 024 11:53 AM EDT) No Daxa Ascencio, EDUARDO documented as of this encounter Visit Diagnoses Not on filedocumented in this encounter Care Teams Metal Wire Coating Operator Relationship Specialty Start Date End Date Braulio Pan MD [address] [place] [address] PCP - General Family Medicine 01/22/22 Braulio Pan MD Referring Family Medicine 08/20/21 Braulio Pan MD [address] [place] [address] Referring Family Medicine 12/04/22 Ruddy Pack DO [address] [place] [address] Primary Staff Physician Cardiology 08/17/23 documented as of this encounter
--- OUTSIDE RECORDS SUMMARY | 2024-11-21 11:01 | XMS_ITS | Clinical Summary ---
Author Organization [facility] Address [address], [address] [place] [address] Care Team Providers Care Level Vial Inspector And Tester Name Role Phone Unavailable Primary Care Provider Unavailabl e Allergies Active Allergy Reactions Criticality Noted Date Comments Sulfamethoxazole-Trimethoprim Hives 2015 Sulfa Antibiotics Hives 02/26/2016 Medications EFFER-K 25 MEQ disintegrating tablet Take 1 tablet by mouth 2 times daily 60 tablet 5 04/08/20 18 Active Additional Information Patient not taking.Reported on 05/10/2019 tamsulosin (FLOMAX) 0.4 MG capsule 06/21/19 19 Active Norgestim-Eth Estrad Triphasic 0.18/0.215/0.25 MG-25 MCG TABS TAKE 1 TABLET BY MOUTH ONCE DAILY 04/17/19 20 Active traZODone (DESYREL) 100 MG tabletIndications: Primary insomnia Take 1 tablet by mouth nightly 60 tablet 3 11/15/19 20 Active sertraline (ZOLOFT) 50 MG tablet Take 1.5 tablets by mouth daily 45 tablet 3 11/15/19 20 Active Active Problems Problem Noted Date Diagnosed Date Depression with anxiety / Zoloft / 201907/25/19 20 Ganglion cyst of dorsum of right wrist 9 Nervousness 06/16/2016 Migraine with aura and witho ut status migrainosus, not intractable / Episodic 02/28/2016 Social History Tobacco Use Types Packs/Day Years Used Date Smoking Tobacco: Former Cigarettes 2 1 0 12/07/2007 - 12/06/2008 Smokeless Tobacco: Never Tobacco Cessation:Counseling Given: No Alcohol Use Standard Drinks/Week Comments Yes 0 (1 standard drink = 0.6 oz pur e alcohol) socially Overall Financial Resource Strain (CARDIA) Answe r Date Recorded Difficulty of Paying Living Expenses Not hard at all 06/21/2018 PHQ-2 Answer Date Recorded PHQ-2 Score 24 05/10/2019 [facility] - Occupational Stress Questionnaire Answer Date Recorded Feeling of Stress To some extent 06/21/2018 Exercise Vital Sign Answer Date Recorde d Days of Exercise per Week 0 days 2018 Minutes of Exercise per Session 0 min 06/21/2018 Hunger Vital Sign Answer Date Recorded Worried About Running Out of Food in the Last Ye ar Never true 06/21/2018 Ran Out of Food in the Last Year Never true 06/21/2018 PRAPARE - Transportation Answer Date Re corded Lack of Transportation (Medical) No 06/21/2018 Lack of Transportation (Non-Medical) No 06/21/2018 Comments No Sex and Gender Information Value Date Recorded Sex Assigned at Not on file Legal Sex Female 8:11 AM EST Gender Identity Not on file Sexual Orientation Not on file 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
--- OUTSIDE RECORDS SUMMARY | 2024-11-21 11:01 | XMS_ITS | Encounter Summary ---
Author Organization [facility] Address [address] [place] [address] Care Team Providers Care Alemite Operator Name Role Phone Braulio Pan MD Unavailable [phone] Braulio Pan MD Primary Care Provider +-[phone] Braulio Pan MD Unavailable [phone] Ruddy Pack DO Unavailable [phone] Source Comments In the event this information is protected by the Federal Confidentiality of Alcohol and Drug AbusePatient Records regulations: The Federal rules restrict any use of the information to criminally investigate or prosecute any alcohol or drug abuse patient.[facility] Encounter Details Date Type Department Care Team (Late st Contact Info) Description 08/02/2024 Patient Msg Neurology [address] [place] [id number] Provider, [facility] Know Your Triggers, Own Your Day: Taking Control of Migraine Social History Tobacco Use Types Packs/Day Years [...] PHQ-2 Answer Date Recorded PHQ-2 score 0 06/28/2024 Hunger Vital Sign Answer Date Recorded Within [...] place to sleep or slept in a skilled nursing (including now)? No 01/22/2022 Area Deprivation Index Answer Date Shaka rded National Score (1-100), lower number is lower ri sk 52 08/17/2023 State Score (1-10), lower number is lower risk 3 08/17/2023 Data from: https://www.neighborhoodatlas.medicine.[facility].edu/. Last address used for calculation [address] 08/17/2023 Comments No Sex and [...] Contact Info) Description 12/29/2024 8:30 AM EDT [facility] Headache [facility] [address] [place] [address] Deric Fam APRN.INDUSTRIAL REAL ESTATE AGENT [address] [place] [address] re-occuring migraines documented as of this encounter Goals Goal Patient Goal Type Associated Problems Recent Progress Patient-Stated? Author Blood Pressure < 130/80 Blood Pressure 126/80( 024 11:53 AM EDT) No Daxa Ascencio RN documented as of this encounter Visit Diagnoses Not on filedocumented in this encounter Care Teams Alemite Operator Relationship Specialty Start Date End Date Braulio Pan MD [address] [place] [address] PCP - General Family Medicine 01/22/22 Braulio Pan MD Referring Family Medicine 08/20/21 Braulio Pan MD [address] [place] [address] Referring Family Medicine 12/04/22 Ruddy Pack DO [address] [facility] [place] [place] [address] Primary Staff Physician Cardiology 08/17/23 documented as of this encounter
--- OUTSIDE RECORDS SUMMARY | 2024-11-21 11:01 | XMS_ITS | Encounter Summary ---
Author Organization [facility] Address [address] [place] [address] Care Team Providers Care Powered Bridge Specialist Name Role Phone Braulio Pan MD Unavailable [phone] Braulio Pan MD Primary Care Provider +-3 Braulio Pan MD Unavailable [phone] Ruddy Pack DO Unavailable [phone] Source Comments In the event this information is protected by the Federal Confidentiality of Alcohol and Drug AbusePatient Records regulations: The Federal rules restrict any use of the information to criminally investigate or prosecute any alcohol or drug abuse patient.[facility] Encounter Details Date Type Department Care Team (Late st Contact Info) Description 04/14/2023 Patient Msg Integrative and Lifestyle Medicine [address] [place] [address] Provider, Ccf Cancelled: Acupuncture Appointments - Please Read Social History Tobacco Use Types Packs/Day Years Used Date Smoking Tobacco: Former Cigarettes 2 2011 Smokeless Tobacco: Never Alcohol Use Standard Drinks/Week Comments Yes 0 (1 standard drink = 0.6 oz pur e alcohol) socially Overall Financial Resource Strain (CARDIA) Answe r Date Recorded How hard is it for you to pa y for the very basics like food, housing, medical care, and heating? Not hard at all 01/22/2022 PHQ-2 Answer Date Recorded PHQ-2 score 0 03/16/2023 Hunger Vital Sign Answer Date Recorded Within [...] place to sleep or slept in a snf (including now)? No 01/22/2022 Area Deprivation Index Answer Date Shaka rded National Score (1-100), lower number is lower ri sk 88 02/10/2023 State Score (1-10), lower number is lower risk 8 02/10/2023 Data from: https://www.neighborhoodatlas.medicine.[facility].edu/. Last address used for calculation [address] 02/10/2023 Comments No Sex and Gender Information Value [...] Info) Description 12/29/2024 8:30 AM EDT [facility] Neurology Headache [facility] [address] [place] [address] Deric Fam APRN.DATA MIGRATION LEAD [address] [place] [address] re-occuring migraines documented as of this encounter Visit Diagnoses Not on filedocumented in this encounter Care Teams Powered Bridge Specialist Relationship Specialty Start Date End Date Braulio Pan MD [address] [place] [address] PCP - General Family Medicine 01/22/22 Braulio Pan MD Referring Family Medicine 08/20/21 Braulio Pan MD [address] [place] [address] Referring Family Medicine 12/04/22 Ruddy Pack DO [address] [place] [address] Primary Staff Physician Cardiology 08/17/23 documented as of this encounter
--- OUTSIDE RECORDS SUMMARY | 2024-11-21 11:01 | XMS_ITS | Encounter Summary ---
Author Organization [facility] Address [address] [place] [address] Care Team Providers Care Epoxy Specialist Name Role Phone Braulio Pan MD Unavailable [phone] Braulio Pan MD Primary Care Provider +-0 Braulio Pan MD Unavailable [phone] Ruddy Pack DO Unavailable [phone] Source Comments In the event this information is protected by the Federal Confidentiality of Alcohol and Drug AbusePatient Records regulations: The Federal rules restrict any use of the information to criminally investigate or prosecute any alcohol or drug abuse patient.[facility] Encounter Details Date Type Department Care Team (Latest Contact Info) Description 06/15/2023 [place] [address] Provider, Ccf REMINDER: [facility] Questionnaires Due in 7 days Social History Tobacco Use Types Packs/Day Years Used Date Smoking Tobacco: Former Cigarettes 2 1 2 011 - 2011 Smokeless Tobacco: Never Alcohol Use Standard [...] place to sleep or slept in a assisted (including now)? No 01/22/2022 Area Deprivation Index Answer Date Shaka rded National Score (1-100), lower number is lower ri sk 88 02/10/2023 State Score (1-10), lower number is lower risk 8 02/10/2023 Data from: https://www.neighborhoodatlas.medicine.[facility].edu/. Last address used for calculation [address] [place] [address] 02/10/2023 Comments No Sex and Gender Information [...] Contact Info) Description 12/29/2024 8:30 AM EDT [facility] Neurology Headache [facility] [address] [place] [address] Deric Fam APRN.PEANUT SEPARATOR [address] [place] [address] re-occuring migraines documented as of this encounter Visit Diagnoses Not on filedocumented in this encounter Care Teams Epoxy Specialist Relationship Specialty Start Date End Date Braulio Pan MD [address] [place] [address] PCP - General Family Medicine 01/22/22 Braulio Pan MD Referring Family Medicine 08/20/21 Braulio Pan MD [address] [place] [address] Referring Family Medicine 12/04/22 Ruddy Pack DO [address] [place] [address] Primary Staff Physician Cardiology 08/17/23 documented as of this encounter
--- OUTSIDE RECORDS SUMMARY | 2024-11-21 11:01 | XMS_ITS | Encounter Summary ---
Author Organization [facility] Address [address] [place] [address] Care Team Providers Care Glue Size Machine Operator Name Role Phone Braulio Pan MD Unavailable [phone] Braulio Pan MD Primary Care Provider +-6 Braulio Pan MD Unavailable [phone] Ruddy Pack DO Unavailable [phone] Source Comments In the event this information is protected by the Federal Confidentiality of Alcohol and Drug AbusePatient Records regulations: The Federal rules restrict any use of the information to criminally investigate or prosecute any alcohol or drug abuse patient.[facility] Encounter Details Date Type Department Care Team (Late st Contact Info) Description 03/10/2023 Patient Msg Pulmonology [facility] [address] [place] [address] Provider, Ccf A Message from the [facility] Recovery Department Social History Tobacco Use [...] PHQ-2 Answer Date Recorded PHQ-2 score 0 02/03/2023 Hunger Vital Sign Answer Date Recorded Within [...] place to sleep or slept in a senior care (including now)? No 01/22/2022 Area Deprivation Index Answer Date Shaka rded National Score (1-100), lower number is lower ri sk 88 02/10/2023 State Score (1-10), lower number is lower risk 8 02/10/2023 Data from: https://www.neighborhoodatlas.medicine.[facility].edu/. Last address used for calculation [address] 02/10/2023 Comments No Sex and Gender [...] Contact Info) Description 12/29/2024 8:30 AM EDT [facility] Neurology Headache [facility] [address] [place] [address] Deric Fam APRN.RECEIVER BULK SYSTEM [address] [place] [address] re-occuring migraines documented as of this encounter Visit Diagnoses Not on filedocumented in this encounter Care Teams Glue Size Machine Operator Relationship Specialty Start Date End Date Braulio Pan MD [address] [place] [address] PCP - General Family Medicine 01/22/22 Braulio Pan MD Referring Family Medicine 08/20/21 Braulio Pan MD [address] [place] [address] Referring Family Medicine 12/04/22 Ruddy Pack DO [address] [place] [address] Primary Staff Physician Cardiology 08/17/23 documented as of this encounter
--- OUTSIDE RECORDS SUMMARY | 2024-11-21 11:01 | XMS_ITS | Encounter Summary ---
Author Organization [facility] Address [address] [place] [address] Care Team Providers Care Accounting Teacher Name Role Phone Braulio Pan MD Unavailable [phone] Braulio Pan MD Primary Care Provider +-9 Braulio Pan MD Unavailable [phone] Ruddy Pack DO Unavailable [phone] Source Comments In the event this information is protected by the Federal Confidentiality of Alcohol and Drug AbusePatient Records regulations: The Federal rules restrict any use of the information to criminally investigate or prosecute any alcohol or drug abuse patient.[facility] Encounter Details Date Type Department Care Team (Latest Contact Info) Description 03/11/2024 [place] [address] Provider, Ccf REMINDER: [facility] Questionnaires [...] place to sleep or slept in a prison (including now)? No 01/22/2022 Area Deprivation Index Answer Date Shaka rded National Score (1-100), lower number is lower ri sk 52 08/17/2023 State Score (1-10), lower number is lower risk 3 08/17/2023 Data from: https://www.neighborhoodatlas.medicine.[facility].edu/. Last address used for calculation [address] 08/17/2023 Comments No [...] Contact Info) Description 12/29/2024 8:30 AM EDT [facility] Neurology Headache [facility] [address] [place] [address] Deric Fam APRN.NIGHT COORDINATOR [address] [place] [address] re-occuring migraines documented as of this encounter Goals Goal Patient Goal Type Associated Problems Recent Progress Patient-Stated? Author Blood Pressure < 130/80 Blood Pressure 126/80( 024 11:53 AM EDT) No Daxa Ascencio RN documented as of this encounter Visit Diagnoses Not on filedocumented in this encounter Care Teams Accounting Teacher Relationship Specialty Start Date End Date Braulio Pan MD [address] [place] [address] PCP - General Family Medicine 01/22/22 Braulio Pan MD Referring Family Medicine 08/20/21 Braulio Pan MD [address] [place] [address] Referring Family Medicine 12/04/22 Ruddy Pack DO [address] [place] [address] Primary Staff Physician Cardiology 08/17/23 documented as of this encounter
--- OUTSIDE RECORDS SUMMARY | 2024-11-21 11:01 | XMS_ITS | Encounter Summary ---
Author Organization [facility] Address [address] [place] [address] Care Team Providers Care Mixing House Operator Name Role Phone Braulio Pan MD Unavailable [phone] Braulio Pan MD Primary Care Provider +- Braulio Pan MD Unavailable [phone] Rdudy Pack DO Unavailable [phone] Source Comments In the event this information is protected by the Federal Confidentiality of Alcohol and Drug AbusePatient Records regulations: The Federal rules restrict any use of the information to criminally investigate or prosecute any alcohol or drug abuse patient.[facility] Encounter Details Date Type Department Care Team (Late st Contact Info) Description 06/08/2023 [place] [address] Provider, Ccf A Message from the [facility] Recovery Department Social History Tobacco Use Types [...] place to sleep or slept in a [place] health care facility (including now)? No 01/22/2022 Area Deprivation Index Answer Date Shaka rded National Score (1-100), lower number is lower ri sk 88 02/10/2023 State Score (1-10), lower number is lower risk 8 02/10/2023 Data from: https://www.neighborhoodatlas.medicine.[facility].edu/. Last address used for calculation [address] [place] [address] 02/10/2023 Comments No Sex and Gender Information [...] Assessment Author No 01/24/2022 2:12 PM EDT oCra Ruiz RN * Are you blind or [...] Contact Info) Description 12/29/2024 8:30 AM EDT [facility] Neurology Headache [facility] [address] [place] [address] Deric Fam APRN.[facility] [address] [place] [address] re-occuring migraines documented as of this encounter Visit Diagnoses Not on filedocumented in this encounter Care Teams Mixing House Operator Relationship Specialty Start Date End Date Braulio Pan MD [address] [place] [address] PCP - General Family Medicine 01/22/22 Braulio Pan MD Referring Family Medicine 08/20/21 Braulio Pan MD [address] [place] [address] Referring Family Medicine 12/04/22 Rudyd Pack DO [address] [place] [address] Primary Staff Physician Cardiology 08/17/23 documented as of this encounter
--- OUTSIDE RECORDS SUMMARY | 2024-11-21 11:01 | XMS_ITS | Encounter Summary ---
Author Organization [facility] Address [address] [place] [address] Care Team Providers Care Brush Loader And Handle Attacher Name Role Phone Braulio Pan MD Unavailable [phone] Braulio Pan MD Primary Care Provider [phone] Braulio Pan MD Unavailable [phone] Ruddy Pack DO Unavailable [phone] Source Comments In the event this information is protected by the Federal Confidentiality of Alcohol and Drug AbusePatient Records regulations: The Federal rules restrict any use of the information to criminally investigate or prosecute any alcohol or drug abuse patient.[facility] Encounter Details Date Type Department Care Team (Late st Contact Info) Description 03/29/2023 Patient Msg [facility] [address] [place] [address] Adrian Kohli LMT exercises from massage appointment Social History Tobacco Use Types Packs/Day Years [...] place to sleep or slept in a residential (including now)? No 01/22/2022 Area Deprivation Index Answer Date Shaka rded National Score (1-100), lower number is lower ri sk 88 02/10/2023 State Score (1-10), lower number is lower risk 8 02/10/2023 Data from: https://www.neighborhoodatlas.medicine.[facility].edu/. Last address used for calculation [address] [...] AM EDT [facility] Neurology Headache [facility] [address] [place] [address] Deric Fam APRN.ROASTER OPERATOR [address] [place] [address] re-occuring migraines documented as of this encounter Visit Diagnoses Not on filedocumented in this encounter Care Teams Brush Loader And Handle Attacher Relationship Specialty Start Date End Date Braulio Pan MD [address] [place] [address] PCP - General Family Medicine 01/22/22 Braulio Pan MD Referring Family Medicine 08/20/21 Braulio Pan MD [address] [place] [address] Referring Family Medicine 12/04/22 Ruddy Pack DO [address] [place] [address] Primary Staff Physician Cardiology 08/17/23 documented as of this encounter
--- OUTSIDE RECORDS SUMMARY | 2024-11-21 11:01 | XMS_ITS | Clinical Summary ---
Author Organization [facility] Address [address] [place] [address] Care Team Providers Care Embedded Software Manager Name Role Phone Braulio Pan MD Unavailable [phone] Braulio Pan MD Primary Care Provider [phone] Braulio Pan MD Unavailable Ruddy Pack DO Unavailable [phone] Allergies Active Allergy Reactions Criticality Noted Date Comments Adhesive Tape-Silicones Rash 01/22/2022 Sulfamethoxazole-Trimethopri m Hives 11/10/2019 Morphine Other: See Comments Low 08/03/2022 Tachycardia Sulfa (Sulfonamide Antibiotics) Hives 11/10/2019 Medications Miblo-6-NHK-EPA-Fi sh Oil (FISH OIL) 1,000 mg (120 mg-180 mg) cap 04/23/19 24 Active cyanocobalamin/cob amamide (B12 SUBLINGUAL) Dissolve under the tongue. Active COQ10, UBIQUINOL, ORAL Take by mouth. Activ e PREMARIN 0.9 mg tablet Take 0.9 mg by mouth once daily. Active atomoxetine (STRATTERA) 40 mg capsule Take 40 mg by mouth once daily. 01/24/20 24 Active propranolol ER (INDERAL LA) 60 mg 24 hr capsule TAKE 1 CAPSULE BY MOUTH EVERY DAY 90 capsule 2 06/13/19 25 Active ondansetron orally disintegrating (ZOFRAN ODT) 4 mg disintegrating tablet Take 4 mg by mouth every 8 hours as needed for nausea/vomiting. 05/01/19 25 Active fremanezumab-vfrm subcutaneus auto-injector 225 mg/1.5 mL (AJOVY)Indications :Chiari I malformation (HCC),Intractable migraine without aura and without status migrainosus Inject 1.5 mL subcutaneously once every month. Do not shake. 1.5 mL 09/29/19 026 Active Active Problems Problem Noted Date Diagnosed Date Central cord syndrome 08/04/2023 08/04/2023 Chest pain 04/23/2023 08/04/2023 Post covid-19 condition, unspecified 04/21/2023 08/04/2023 POTS (postural orthostatic tachycardia syndrome) 02/10/2023 Syncope 02/10/2023 Hyperlipidemia LDL goal <70 02/10/2023 Migraine 02/10/2023 Arnold-Chiari malformation 02/10/2023 Calculus of kidney 10/05/2022 08/04/2023 Palpitations 08/03/2022 08/04/2023 Hx of syncope 06/28/2022 08/04/2023 Paralysis 01/22/2022 Sinus tachycardia 12/11/2021 08/04/2023 Finding of above normal blood pressure 08/04/2023 Depression with anxiety 07/25/2019 08/04/19 Encounters Date Type Department Care Team Description 11/08/2024 Refill Neurology [facility] [address] [place] [address] Deric Fam, WILIAN.REAL ESTATE DEVELOPMENT MANAGER Refill Request 10/03/2024 Telephone Neurology [facility] [address] [place] [address] Deric Fam, WILIAN.REAL ESTATE DEVELOPMENT MANAGER Insurance Authorization (Ajovy) 09/28/2024 1:30 PM EDT [facility] Neurology [facility] [address] [place] [address] Deric Fam, WILIAN.REAL ESTATE DEVELOPMENT MANAGER Chiari I malformation (HCC); Intractable migraine without aura and without status migrainosus 09/25/2024 Travel from Last 3 Months Family History Medical History Relation Comments Seizures Brother 1 Alcohol/Drug Father Autoimmune disease Father Diabetes Father Stroke Father Alcohol/Drug Mother Genitourinary () Mother Alcohol/Drug Paternal Grandfather Breast Cancer Paternal Grandmother Relation Status Comments Brother 1 Alive Brother 2 Alive Father Alive Mother Alive Paternal Grandfather Paternal Grandmother Sister 1 Alive Sister 2 Alive Social History Tobacco Use Types Packs/Day Years [...] PHQ-2 Answer Date Recorded PHQ-2 score 0 09/25/2024 Hunger Vital Sign Answer Date Recorded Within [...] (1-100), lower number is lower ri sk 68 09/28/2024 State Score (1-10), lower number is lower risk 5 09/28/2024 Data from: https://www.neighborhoodatlas.medicine.[facility].edu/. Last address used for calculation [address] 09/28/2024 Comments No Sex and Gender Information Value Date Recorded Sex Assigned at Not on file Legal Sex Female 4:02 PM EDT Gender Identity Female 09/28/2021 10:35 PM EDT Sexual Orientation Straight 09/28/2021 10 :35 PM EDT Last Filed Vital Signs Vital Sign Reading Time Taken Comments Blood Pressure 126/80 02/02/2024 11:53 AM EDT Pulse 78 02/02/2024 11:53 AM EDT Temperature 37.4 C (99.4 F) 02/19/2022 11:59 AM EST Respiratory Rate 17 02/26/2023 8:03 AM EST Oxygen Saturation 97% 04/20/2023 12:09 PM EST Inhaled Oxygen Concentration - - Weight 55.3 kg (122 lb) 02/02/2024 11:53 AM EDT Height 152.4 cm (5') 02/02/2024 11:53 AM EDT Body Mass Index 23.83 02/02/2024 11:53 AM EDT Plan of Treatment Upcoming Encounters Date Type Department Care Team (Latest Contact Info) Description 12/29/2024 8:30 AM EDT [facility] Neu[facility] Headache [facility] [address] [place] [address] Deric Fam APRN.REAL ESTATE DEVELOPMENT MANAGER [address] [place] [address] re-occuring migraines Health Maintenance Due Date Last Done Comments HIV Screening 2008 Hepatitis C Screening 2008 DTaP,Tdap,Td Vaccine (1 - Tdap) 2009 Hepatitis B Vaccine (1 of 3 - 19+ 3-dose series) 2009 Cervical Cancer Screening 11/26/2011 HPV Vaccine (1 - 3-dose SCDM series) 2017 Influenza Vaccine (#1) 2024 4, 03/10/2022, 01/17/2021 Goals Goal Patient Goal Type Associated Problems Recent Progress Patient-Stated? Author Blood Pressure < 130/80 Blood Pressure 126/80( 024 11:53 AM EDT) No Daxa Ascencio, RN Insurance Care Teams Embedded Software Manager Relationship Specialty Start Date End Date Braulio Pan MD [address] [place] [address] PCP - General Family Medicine 01/22/22 Braulio Pan MD Referring Family Medicine 08/20/21 Braulio Pan MD [address] [place] [address] Referring Family Medicine 12/04/22 Ruddy Pack DO [address] [place] [address] Primary Staff Physician Cardiology 08/17/23
--- OUTSIDE RECORDS SUMMARY | 2024-11-21 11:01 | XMS_ITS | Encounter Summary ---
Author Organization [facility] Address [address] [place] [address] Care Team Providers Care Heel Seat Fitter Machine Name Role Phone Braulio Pan MD Unavailable [phone] Braulio Pan MD Primary Care Provider [phone] Braulio Pan MD Unavailable [phone] Ruddy Pack DO Unavailable [phone] Source Comments In the event this information is protected by the Federal Confidentiality of Alcohol and Drug AbusePatient Records regulations: The Federal rules restrict any use of the information to criminally investigate or prosecute any alcohol or drug abuse patient.[facility] Reason for Visit * Reason Onset Date Comments Refill Request 11/08/2024 Encounter Details Date Type Department Care Team (Late st Contact Info) Description 11/08/2024 Refill Neurology Headache [facility] [address] [place] [address] Deric Fam APRN.TRUCK SERVICE MANAGER [address] [place] [address] Refill Request Social History Tobacco Use Types Packs/Day Years Used Date Smoking Tobacco: Former Cigarettes 2 1 2 - 2011 Smokeless Tobacco: Never Alcohol Use [...] place to sleep or slept in a jail (including now)? No 01/22/2022 Area Deprivation Index Answer Date Shaka rded National Score (1-100), lower number is lower ri sk 68 09/28/2024 State Score (1-10), lower number is lower risk 5 09/28/2024 Data from: https://www.neighborhoodatlas.medicine.[facility].edu/. Last address used for calculation [address] 09/28/2024 Comments No Sex and [...] Author No 01/24/2022 2:12 PM EDT Cora Riuz RN * Do you have serious difficulty [...] Cora Ruiz RN documented in this encounter Miscellaneous Notes * Telephone Encounter - Shira Carrera OCCA - 11/08/2024 4:02 PM EDT Last refilled given 09/28/2024; 11 refills remain. documented in this encounter Plan of Treatment Upcoming Encounters Date Type Department Care Team (Latest Contact Info) Description 12/29/2024 8:30 AM EDT [facility] Neurology Headache [facility] [address] [place] [address] Deric Fam APRN.TRUCK SERVICE MANAGER [address] [place] [address] re-occuring migraines documented as of this encounter Goals Goal Patient Goal Type Associated Problems Recent Progress Patient-Stated? Author Blood Pressure < 130/80 Blood Pressure 126/80( 024 11:53 AM EDT) No Daxa Ascencio, EDUARDO documented as of this encounter Visit Diagnoses Diagnosis Chiari I malformation (HCC) Compression of brain Intractable migraine without aura and without status migrainosus Migraine without aura, with intractable migraine, so stated, without mention of status migrainosus documented in this encounter Care Teams Heel Seat Fitter Machine Relationship Specialty Start Date End Date Braulio Pan MD [address] [place] [address] PCP - General Family Medicine 01/22/22 Braulio Pan MD Referring Family Medicine 08/20/21 Braulio Pan MD [address] [place] [address] Referring Family Medicine 12/04/22 Ruddy Pack DO [address] [place] [address] Primary Staff Physician Cardiology 08/17/23 documented as of this encounter
--- OUTSIDE RECORDS SUMMARY | 2024-11-21 11:01 | XMS_ITS | Encounter Summary ---
Author Organization [facility] tem Address [id number] [address] [place] [address] Care Team Providers Care Tank Crewmember Name Role Phone Braulio Pan MD Primary Care Provider [phone] Reason for Visit * Reason Onset Date Comments wt loss 03/30/2022 Encounter Details Date Type Department Care Team (Late st Contact Info) Description 03/30/2022 Telephone [facility] Physicians Cardiology [address] [facility] [address] [place] [address] Anabel Chapman, EDUARDO wt loss Social History Tobacco Use Types Packs/Day Years Used Date Smoking Tobacco: Former Smokeless Tobacco: Never Comments:9 YEAR AGO Alcohol Use Standard Drinks/Week Comments Yes 0 (1 standard drink = 0.6 oz pur e alcohol) occasional Childcare Answer Date Recorded Childcare Unknown 09/21/2018 Employment Answer Date Recorded Employment Unknown 09/21/2018 Purpose - Life Answer Date Recorded Purpose and direction in life Unknown Comments No Sex and Gender Information Value Date Recorded Sex Assigned at Not on file Legal Sex Female 11:45 AM EDT Gender Identity Not on file Sexual Orientation Not on file COVID-19 Exposure Response Date Recorded In the last month, have you been in contact with someone who was confirmed or suspected to have Coronavirus / COVID-19? Unable to assess 03/30/2022 1:38 PM EST documented as of this encounter Miscellaneous Notes * Telephone Encounter - Anabel Chapman RN - 03/30/2022 8:46 AM EST Pt calls this am stating she has had significant weight loss since she started Corlanor 5mg bid at last office visit with you 02/04/22. Her weight that day was 115, today she is 105. Diet has not changed and she denies any current symptoms at this time. Overall she is doing good except for wt loss.Pls review and advise. * Telephone Encounter - Edgar Flannery MD - 03/30/2022 8:46 AM EST If she feels fine then continue corlanor Make sure she is not seeing floaters * Telephone Encounter - Anabel Chapman RN - 03/30/2022 8:46 AM EST Spoke to pt and she is feeling fine just the wt loss. She states she has had 2 episodes of very small amt of floaters since starting the med. Just to clarify you previous response... have her continue or did you mean discontinue corlanor?? * Telephone Encounter - Edgar Flannery MD - 03/30/2022 8:46 AM EST If she feels better on the Corlanor continue * Telephone Encounter - Anabel Chapman RN - 03/30/2022 8:46 AM EST Pt notified to continue Corlanor and has f/u appt in Apr, pt will keep appt. documented in this encounter Plan of Treatment Upcoming Encounters Date Type Department Care Team (Late st Contact Info) Description 01/23/2025 12:30 PM EDT Office Visit [facility], A Department of [address] [address] Lorenza Duncan, PAOwenC [address] [facility] [address] [place] [address] documented as of this encounter Visit Diagnoses Not on filedocumented in this encounter Additional Health Concerns Infection Onset Date Last Indicated Resolved Time COVID-19 Positive 04/09/2022 04/09/2022 04/30/2022 11:12 PM EST documented as of this encounter Care Teams Tank Crewmember Relationship Specialty Start Date End Date Braulio Pan MD [address] [place] [address] PCP - General Family Medicine 02/11/24 documented as of this encounter
--- OUTSIDE RECORDS SUMMARY | 2024-11-21 11:01 | XMS_ITS | Encounter Summary ---
Author Organization [facility] Address [address] [place] [address] Care Team Providers Care Honing Machine Set Up Operator Tool Name Role Phone Braulio Pan MD Unavailable [phone] Braulio Pan MD Primary Care Provider +- Braulio Pan MD Unavailable [phone] Ruddy Pack DO Unavailable [phone] Source Comments In the event this information is protected by the Federal Confidentiality of Alcohol and Drug AbusePatient Records regulations: The Federal rules restrict any use of the information to criminally investigate or prosecute any alcohol or drug abuse patient.[facility] Encounter Details Date Type Department Care Team (Latest Contact Info) Description 03/04/2024 [place] [address] Provider, Ccf REMINDER: [facility] Questionnaires [...] place to sleep or slept in a fpc (including now)? No 01/22/2022 Area Deprivation Index Answer Date Shaka rded National Score (1-100), lower number is lower ri sk 52 08/17/2023 State Score (1-10), lower number is lower risk 3 08/17/2023 Data from: https://www.neighborhoodatlas.medicine.[facility].edu/. Last address used for calculation [address] [address] 08/17/2023 Comments No [...] Contact Info) Description 12/29/2024 8:30 AM EDT [facility] Neurology Headache [facility] [address] [place] [address] Deric Fam APRN.BENCH SHEAR OPERATOR [address] [place] [address] re-occuring migraines documented as of this encounter Goals Goal Patient Goal Type Associated Problems Recent Progress Patient-Stated? Author Blood Pressure < 130/80 Blood Pressure 126/80( 024 11:53 AM EDT) No Daxa Ascencio RN documented as of this encounter Visit Diagnoses Not on filedocumented in this encounter Care Teams Honing Machine Set Up Operator Tool Relationship Specialty Start Date End Date Braulio Pan MD [address] [place] [address] PCP - General Family Medicine 01/22/22 Braulio Pan MD Referring Family Medicine 08/20/21 Braulio Pan MD [address] [place] [address] Referring Family Medicine 12/04/22 Ruddy Pack DO [address] [place] [address] Primary Staff Physician Cardiology 08/17/23 documented as of this encounter
--- OUTSIDE RECORDS SUMMARY | 2024-11-21 11:01 | XMS_ITS | Encounter Summary ---
Author Organization [facility] Address [address] [place] [address] Care Team Providers Care Armature Connector Name Role Phone Braulio Pan MD Unavailable [phone] Braulio Pan MD Primary Care Provider [phone] Braulio Pan MD Unavailable [phone] Ruddy Pack DO Unavailable [phone] Source Comments In the event this information is protected by the Federal Confidentiality of Alcohol and Drug AbusePatient Records regulations: The Federal rules restrict any use of the information to criminally investigate or prosecute any alcohol or drug abuse patient.[facility] Encounter Details Date Type Department Care Team (Late st Contact Info) Description 02/18/2024 Patient Msg Neurology [address] [place] [address] Sweta Wang PA-C [address] [place] [address] Headache Social History Tobacco Use Types Packs/Day Years [...] is lower risk 3 08/17/2023 Data from: https://www.neighborhoodatlas.medicine.[facility].edu/. Last address used for calculation [address] [address] 08/17/2023 Comments No Sex and [...] Contact Info) Description 12/29/2024 8:30 AM EDT [facility] Neurology Headache [facility] [address] [place] [address] Deric Fam APRN.ADMINISTRATIVE SUPERVISOR [address] [place] [address] re-occuring migraines documented as of this encounter Goals Goal Patient Goal Type Associated Problems Recent Progress Patient-Stated? Author Blood Pressure < 130/80 Blood Pressure 126/80( 024 11:53 AM EDT) No Daxa Ascencio RN documented as of this encounter Visit Diagnoses Not on filedocumented in this encounter Care Teams Armature Connector Relationship Specialty Start Date End Date Braulio Pan MD [address] [place] [address] PCP - General Family Medicine 01/22/22 Braulio Pan MD Referring Family Medicine 08/20/21 Braulio Pan MD [address] [place] [address] Referring Family Medicine 12/04/22 Ruddy Pack DO [address] [facility] [address] Primary Staff Physician Cardiology 08/17/23 documented as of this encounter
--- OUTSIDE RECORDS SUMMARY | 2024-11-21 11:01 | XMS_ITS | Encounter Summary ---
Author Organization [facility] tem Address [id number] [address] [place] [address] Care Team Providers Care Solutions Development Analyst Name Role Phone Braulio Pan MD Primary Care Provider [phone] Encounter Details Date Type Department Care Team (Late st Contact Info) Description 10/16/2022 Orders Only [facility] Family Medicine [address] [place] [phone] Hany Santillan MD [address] [place], [place] [phone] Allergic angioedema, initial encounter Social History Tobacco Use Types Packs/Day Years [...] on file Sexual Orientation Not on file documented as of this encounter Plan of Treatment Upcoming Encounters Date Type Department Care Team (Late st Contact Info) Description 01/23/2025 12:30 PM EDT Office Visit [facility], A Department of [address] [phone] SchLorenza doll PA-C [address] [facility] [address] [place] [address] documented as of this encounter Visit Diagnoses Diagnosis Allergic angioedema, initial encounter documented in this encounter Care Teams Solutions Development Analyst Relationship Specialty Start Date End Date Braulio Pan MD [address] [place] [address] PCP - General Family Medicine 02/11/24 documented as of this encounter
--- OUTSIDE RECORDS SUMMARY | 2024-11-21 11:01 | XMS_ITS | Encounter Summary ---
Author Organization [facility] Address [id number] [address] [place] [address] Care Team Providers Care Cuff Runner Name Role Phone Braulio Pan MD Primary Care Provider [phone] Reason for Visit * Reason Onset Date Comments Rapid Heart Rate 09/22/2022 Encounter Details Date Type Department Care Team (Late st Contact Info) Description 09/22/[address] [facility] Physicians Cardiology [address] [facility] [address] [place] [address] Anabel Chapman RN Rapid Heart Rate Social History Tobacco Use Types Packs/Day Years [...] on file documented as of this encounter Miscellaneous Notes * Telephone Encounter - Anabel Chapman RN - 09/22/2022 8:28 AM EDT Pt calls today reporting she had one episode over past weekend with HR going up to 140-160's at rest. No other symptoms reported. Then happened again last night with HR going to 160's. Other than these 2 episodes it has been in normal range of 70's. She is currently on lopressor 25 bid. Last seen by [facility] 08/03/22. Pls review and advise * Telephone Encounter - Nancy Woodard MD - 09/22/2022 8:28 AM EDT How long these episodes last? May take extra dose of Lopressor 25 mg with episode of tachycardia, up to 1 extra per day * Telephone Encounter - Anabel Chapman RN - 09/22/2022 8:28 AM EDT Pt notified and understood she can take one extra tab per day with episode. documented in this encounter Plan of Treatment Upcoming Encounters Date Type Department Care Team ([facility] st Contact Info) Description 01/23/2025 12:30 PM EDT Office Visit [facility], A Department of [address] [address] Lorenza Duncan, PA-C [address] [place] [address] documented as of this encounter Visit Diagnoses Not on filedocumented in this encounter Care Teams Cuff Runner Relationship Specialty Start Date End Date Braulio Pan MD [address] [place] [address] PCP - General Family Medicine 02/11/24 documented as of this encounter
--- OUTSIDE RECORDS SUMMARY | 2024-11-21 11:01 | XMS_ITS | Encounter Summary ---
Author Organization [facility] Address [address] [place] [address] Care Team Providers Care Structures Engineer Name Role Phone Braulio Pan MD Unavailable [phone] Braulio Pan MD Primary Care Provider [phone] Braulio Pan MD Unavailable [phone] Ruddy Pack DO Unavailable [phone] Source Comments In the event this information is protected by the Federal Confidentiality of Alcohol and Drug AbusePatient Records regulations: The Federal rules restrict any use of the information to criminally investigate or prosecute any alcohol or drug abuse patient.[facility] Encounter Details Date Type Department Care Team (Late st Contact Info) Description 03/03/2023 [place] [address] Provider, Ccf Financial Clearance Social History Tobacco Use Types Packs/Day Years Used Date Smoking Tobacco: Former Cigarettes 2 2011 Smokeless Tobacco: Never Alcohol Use Standard Drinks/Week Comments Yes 0 (1 standard drink = 0.6 oz pur e alcohol) socially Overall Financial Resource Strain (CARDIA) Answe r Date Recorded How hard is it for you to pa alexy for the very basics like food, housing, [...] lower risk 8 02/10/2023 Data from: https://www.neighborhoodatlas.medicine.[facility].edu/. Last address used for calculation [address] [place] [address] 02/10/2023 Comments No Sex and Gender Information [...] Contact Info) Description 12/29/2024 8:30 AM EDT [facility] Neurology Headache [facility] [address] [place] [address] Deric Fam APRN.SHEET METAL JOURNEYMAN [address] [place] [address] re-occuring migraines documented as of this encounter Visit Diagnoses Not on filedocumented in this encounter Care Teams Structures Engineer Relationship Specialty Start Date End Date Braulio Pan MD [address] [place] [address] PCP - General Family Medicine 01/22/22 Braulio Pan MD Referring Family Medicine 08/20/21 Braulio Pan MD [address] [place] [address] Referring Family Medicine 12/04/22 Ruddy Pack DO [address] [facility] [place] [id number] Primary Staff Physician Cardiology 08/17/23 documented as of this encounter
--- OUTSIDE RECORDS SUMMARY | 2024-11-21 11:01 | XMS_ITS | Encounter Summary ---
Author Organization [facility] Address [id number] [address] [place] [address] Care Team Providers Care Cotton Jammer Name Role Phone Braulio Pan MD Primary Care Provider [phone] Encounter Details Date Type Department Care Team (Late Contact Info) Description 02/27/2022 Orders Only [facility] Family Medicine [address] [place] [phone] Hany Santillan MD [address], [place], [place] [phone] Acute cough (Primary Dx) Social History Tobacco Use Types Packs/Day Years [...] or suspected to have Coronavirus / COVID-19? No / Unsure 02/27/2022 10:26 AM EST documented as of this encounter Plan of Treatment Upcoming Encounters Date Type Department Care Team (Late st Contact Info) Description 01/23/2025 12:30 PM EDT Office Visit [facility], A Department of [facility] [address] [address] Lorenza Duncan, PA-C [address] [facility] [address] [place] [address] documented as of this encounter Visit Diagnoses Diagnosis Acute cough- Primary documented in this encounter Additional Health Concerns Infection Onset Date Last Indicated Resolved Time COVID-19 Positive 04/09/2022 04/09/2022 04/30/2022 11:12 PM EST documented as of this encounter Care Teams Cotton Jammer Relationship Specialty Start Date End Date Braulio Pan MD [address] [place] [address] PCP - General Family Medicine 02/11/24 documented as of this encounter
--- OUTSIDE RECORDS SUMMARY | 2024-11-21 11:02 | XMS_ITS | Encounter Summary ---
Author Organization [facility] Address [address] [place] [address] Care Team Providers Care Manager Digital Ad Operations Name Role Phone Braulio Pan MD Unavailable [phone] Braulio Pan MD Primary Care Provider [phone] Braulio Pan MD Unavailable [phone] Ruddy Pack DO Unavailable [phone] Source Comments In the event this information is protected by the Federal Confidentiality of Alcohol and Drug AbusePatient Records regulations: The Federal rules restrict any use of the information to criminally investigate or prosecute any alcohol or drug abuse patient.[facility] Encounter Details Date Type Department Care Team (Late st Contact Info) Description 11/10/2021 Get Medical Advice [facility] [address] [place] [address] [place] [address] [place] [address] Syncope episode Social History Tobacco Use Types Packs/Day Years Used Date Smoking Tobacco: Former Smokeless Tobacco: Never Alcohol Use Standard Drinks/Week Comments Yes 0 (1 standard drink = 0.6 oz pur e alcohol) Area Deprivation Index Answer Date Shaka rded National Score (1-100), lower number is lower ri sk 53 09/03/2021 State Score (1-10), lower number is lower risk N ot on file 09/03/2021 Data from: https://www.neighborhoodatlas.medicine.[facility]/. Last address used for calculation [address] [address] 09/03/2021 Comments No Sex and Gender Information Value Date Recorded Sex Assigned at Not on file Legal Sex Female 4:02 PM EDT Gender Identity Female 09/28/2021 10:35 PM EDT Sexual Orientation Straight 09/28/2021 10 :35 PM EDT COVID-19 Exposure Response Date Recorded In the last 10 days, have yo u been in contact with someone who was confirmed or suspected to have Coronavirus/COVID-19? Unable to assess 11/04/2021 2:19 PM EDT documented as of this encounter Plan of Treatment Upcoming Encounters Date Type Department Care Team (Latest Contact Info) Description 12/29/2024 8:30 AM EDT [facility] Neurology Headache [facility] [address] [place] [address] Deric Fam APRN.DIVERSIONAL THERAPIST'S ASSISTANT [address] [place] [address] re-occuring migraines documented as of this encounter Visit Diagnoses Not on filedocumented in this encounter Additional Health Concerns Infection Onset Date Last Indicated Resolved Time COVID-19 Rule-Out 01/22/2022 01/22/2022 01/22/2022 5:51 AM EDT documented as of this encounter Care Teams Manager Digital Ad Operations Relationship Specialty Start Date End Date Braulio Pan MD [address] [place] [address] PCP - General Family Medicine 01/22/22 Braulio Pan MD Referring Family Medicine 08/20/21 Braulio Pan MD [address] [place] [address] Referring Family Medicine 12/04/22 Ruddy Pack DO [address] [place] [address] Primary Staff Physician Cardiology 08/17/23 documented as of this encounter
--- OUTSIDE RECORDS SUMMARY | 2024-11-21 11:02 | XMS_ITS | Encounter Summary ---
Author Organization [facility] Address [address] [place] [address] Care Team Providers Care Final Inspector Balance Wheel Name Role Phone Braulio Pan MD Unavailable [phone] Braulio Pan MD Primary Care Provider [phone] Braulio Pan MD Unavailable Ruddy Pack DO Unavailable [phone] Source Comments In the event this information is protected by the Federal Confidentiality of Alcohol and Drug AbusePatient Records regulations: The Federal rules restrict any use of the information to criminally investigate or prosecute any alcohol or drug abuse patient.[facility] Encounter Details Date Type Department Care Team (Late st Contact Info) Description 02/13/2024 Patient Msg Neurology [address] [place] [phone] Jhoana Daily MD [address] [place] [address] Appointment Request Social History Tobacco Use Types Packs/Day [...] is lower risk 3 08/17/2023 Data from: https://www.neighborhoodatlas.medicine.[facility].edu/. Last address used for calculation [address] [address] 08/17/2023 Comments No Sex [...] Contact Info) Description 12/29/2024 8:30 AM EDT [facility] Neurology Headache [facility] [address] [place] [address] Deric Fam APRN.KITCHEN STEWARD [address] [place] [address] re-occuring migraines documented as of this encounter Goals Goal Patient Goal Type Associated Problems Recent Progress Patient-Stated? Author Blood Pressure < 130/80 Blood Pressure 126/80( 024 11:53 AM EDT) No Daxa Ascencio RN documented as of this encounter Visit Diagnoses Not on filedocumented in this encounter Care Teams Final Inspector Balance Wheel Relationship Specialty Start Date End Date Braulio Pan MD [address] [place] [address] PCP - General Family Medicine 01/22/22 Braulio Pan MD Referring Family Medicine 08/20/21 Braulio Pan MD [address] [place] [address] Referring Family Medicine 12/04/22 Ruddy Pack DO [address] [facility] [address] Primary Staff Physician Cardiology 08/17/23 documented as of this encounter
--- OUTSIDE RECORDS SUMMARY | 2024-11-21 11:02 | XMS_ITS | Encounter Summary ---
Author Organization [facility] Address [address] [place] [address] Care Team Providers Care Etl Analyst Developer Name Role Phone Braulio Pan MD Unavailable [phone] Braulio Pan MD Primary Care Provider [phone] Braulio Pan MD Unavailable [phone] Ruddy Pack DO Unavailable [phone] Source Comments In the event this information is protected by the Federal Confidentiality of Alcohol and Drug AbusePatient Records regulations: The Federal rules restrict any use of the information to criminally investigate or prosecute any alcohol or drug abuse patient.[facility] Encounter Details Date Type Department Care Team (Late st Contact Info) Description 09/22/2021 Get Medical Advice [facility] [address] [place] [address] Samy Spivey PA-C [address] [place] [address] MRI Results Social History Tobacco Use Types Packs/Day Years [...] N ot on file 09/03/2021 Data from: https://www.neighborhoodatlas.medicine.[facility].edu/. Last address used for calculation [address] [address] 09/03/2021 Comments No Sex and [...] was confirmed or suspected to have Coronavirus/COVID-19? No / Unsure 09/03/2021 12:40 PM EDT documented as of this encounter Plan of Treatment Upcoming Encounters Date Type Department Care Team (Latest Contact Info) Description 12/29/2024 8:30 AM EDT [facility] Neurology Headache [facility] [address] [place] [address] Deric Fam APRN.DIRECTOR OF TEENAGE ACTIVITIES [address] [place] [address] re-occuring migraines documented as of this encounter Visit Diagnoses Not on filedocumented in this encounter Additional Health Concerns Infection Onset Date Last Indicated Resolved Time COVID-19 Rule-Out 01/22/2022 01/22/2022 01/22/2022 5:51 AM EDT documented as of this encounter Care Teams Etl Analyst Developer Relationship Specialty Start Date End Date Braulio Pan MD [address] [place] [address] PCP - General Family Medicine 01/22/22 Braulio Pan MD Referring Family Medicine 08/20/21 Braulio Pan MD [address] [place] [address] Referring Family Medicine 12/04/22 Ruddy Pack DO [address] [facility] [place] [address] Primary Staff Physician Cardiology 08/17/23 documented as of this encounter
--- OUTSIDE RECORDS SUMMARY | 2024-11-21 11:02 | XMS_ITS | Encounter Summary ---
Author Organization [facility] Address [address] [place] [address] Care Team Providers Care Wharf Labourer Name Role Phone Braulio Pan MD Unavailable [phone] Braulio Pan MD Primary Care Provider [phone] Brauloi Pan MD Unavailable [phone] Ruddy Pack DO Unavailable [phone] Source Comments In the event this information is protected by the Federal Confidentiality of Alcohol and Drug AbusePatient Records regulations: The Federal rules restrict any use of the information to criminally investigate or prosecute any alcohol or drug abuse patient.[facility] Encounter Details Date Type Department Care Team (Late st Contact Info) Description 02/10/2023 Patient Msg Pulmonology [facility] [address] [place] [address] Provider, Ccf Welcome to [facility]! Social History Tobacco Use Types Packs/Day Years Used Date Smoking Tobacco: Former Cigarettes 2 1 - 2011 Smokeless Tobacco: Never Alcohol Use [...] place to sleep or slept in a nursing home (including now)? No 01/22/2022 Area Deprivation Index Answer Date Shaka rded National Score (1-100), lower number is lower ri sk 88 02/10/2023 State Score (1-10), lower number is lower risk 8 02/10/2023 Data from: https://www.neighborhoodatlas.medicine.[facility].edu/. Last address used for calculation [address] 02/10/2023 Comments No Sex and [...] Contact Info) Description 12/29/2024 8:30 AM EDT [facility] Neurology Headache [facility] [address] [place] [address] Deric Fam APRN.GASOLINE TRUCK CRANE OPERATOR [address] [place] [address] re-occuring migraines documented as of this encounter Visit Diagnoses Not on filedocumented in this encounter Care Teams Wharf Labourer Relationship Specialty Start Date End Date Braulio Pan MD [address] [place] [address] PCP - General Family Medicine 01/22/22 Braulio Pan MD Referring Family Medicine 08/20/21 Braulio Pan MD [address] [place] [address] Referring Family Medicine 12/04/22 Ruddy Pack DO [address] [place] [address] Primary Staff Physician Cardiology 08/17/23 documented as of this encounter
--- OUTSIDE RECORDS SUMMARY | 2024-11-21 11:02 | XMS_ITS | Encounter Summary ---
Author Organization [facility] Address [address] [place] [address] Care Team Providers Care Real Estate Sales Manager Name Role Phone Braulio Pan MD Unavailable [phone] Braulio Pan MD Primary Care Provider [phone] Braulio Pan MD Unavailable [phone] Ruddy Pack DO Unavailable [phone] Source Comments In the event this information is protected by the Federal Confidentiality of Alcohol and Drug AbusePatient Records regulations: The Federal rules restrict any use of the information to criminally investigate or prosecute any alcohol or drug abuse patient.[facility] Encounter Details Date Type Department Care Team (Late st Contact Info) Description 09/07/2023 Patient Msg Cardiology [address] [place] [address] Ruddy Pack DO [address] [place] [address] CPET Social History Tobacco Use Types Packs/Day Years [...] place to sleep or slept in a long term (including now)? No 01/22/2022 Area Deprivation Index Answer Date Shaka rded National Score (1-100), lower number is lower ri sk 52 08/17/2023 State Score (1-10), lower number is lower risk 3 08/17/2023 Data from: https://www.neighborhoodatlas.medicine.[facility].edu/. Last address used for calculation [address] 08/17/2023 Comments No Sex [...] Info) Description 12/29/2024 8:30 AM EDT [facility] Neurology Headache [facility] [address] [place] [address] Deric Fam APRN.RUBBER MOLDER [address] [place] [address] re-occuring migraines documented as of this encounter Goals Goal Patient Goal Type Associated Problems Recent Progress Patient-Stated? Author Blood Pressure < 130/80 Blood Pressure 126/80( 024 11:53 AM EDT) No Daxa Ascencio RN documented as of this encounter Visit Diagnoses Not on filedocumented in this encounter Care Teams Real Estate Sales Manager Relationship Specialty Start Date End Date Braulio Pan MD [address] [place] [address] PCP - General Family Medicine 01/22/22 Braulio Pan MD Referring Family Medicine 08/20/21 Braulio Pan MD [address] [place] [address] Referring Family Medicine 12/04/22 Ruddy Pack DO [address] [place] [address] Primary Staff Physician Cardiology 08/17/23 documented as of this encounter
--- OUTSIDE RECORDS SUMMARY | 2024-11-21 11:02 | XMS_ITS | Encounter Summary ---
Author Organization [facility] Address [address] [place] [address] Care Team Providers Care Flight Crew Time Clerk Name Role Phone Braulio Pan MD Unavailable [phone] Braulio Pan MD Primary Care Provider [phone] Braulio Pan MD Unavailable [phone] Ruddy Pack DO Unavailable [phone] Source Comments In the event this information is protected by the Federal Confidentiality of Alcohol and Drug AbusePatient Records regulations: The Federal rules restrict any use of the information to criminally investigate or prosecute any alcohol or drug abuse patient.[facility] Encounter Details Date Type Department Care Team (Latest Contact Info) Description 12/05/2023 [place] [address] Provider, Ccf REMINDER: [facility] Questionnaires [...] is lower risk 3 08/17/2023 Data from: https://www.neighborhoodatlas.medicine.[facility].edu/. Last address used for calculation [address] 08/17/2023 Comments No [...] 8:30 AM EDT [facility] Neurology Headache [facility] [address] [place] [address] Deric Fam APRN.EMERGENCY MANAGEMENT COORDINATOR [address] [place] [address] re-occuring migraines documented as of this encounter Goals Goal Patient Goal Type Associated Problems Recent Progress Patient-Stated? Author Blood Pressure < 130/80 Blood Pressure 126/80( 024 11:53 AM EDT) No Daxa Ascencio RN documented as of this encounter Visit Diagnoses Not on filedocumented in this encounter Care Teams Flight Crew Time Clerk Relationship Specialty Start Date End Date Braulio Pan MD [address] [place] [address] PCP - General Family Medicine 01/22/22 Braulio Pan MD Referring Family Medicine 08/20/21 Braulio Pan MD [address] [place] [address] Referring Family Medicine 12/04/22 Ruddy Pack DO [address] [place] [address] Primary Staff Physician Cardiology 08/17/23 documented as of this encounter
--- OUTSIDE RECORDS SUMMARY | 2024-11-21 11:02 | XMS_ITS | Clinical Summary ---
Author Organization [facility] Address [address] [place] [address] Care Team Providers Care Gi Asst Name Role Phone Braulio Pan MD Primary Care Provider [phone] Allergies Active Allergy Reactions Criticality Noted Date Comments Morphine Unknown,Palpitations Low 08/03/2022 Sulfa Antibiotics Hives 02/26/2016 Sulfamethoxazole-Trimethoprim Unknown,Hives Wound Dressing Adhesive Rash Low 01/22/2022 Medications propranolol LA (Inderal LA) 60 MG 24 hr capsule Take 60 mg by mouth in the morning. 4 Active atomoxetine (Strattera) 40 MG capsule 5 Active coenzyme Q-10 100 MG capsule Activ e Cyanocobalamin (B-12) 5000 MCG sublingual tablet Take by mouth in the morning. Active estradiol (Climara) 0.075 MG/24HRIndicat ions:Dyspareun ia in female Place 1 patch over 7 days on the skin 1 (one) time per week 12 patch 3 5 10/04/19 26 Active progesterone (Prometrium) 100 MG capsuleIndicat ions:Dyspareun ia in female Take 1 capsule (100 mg) by mouth Daily 30 capsule 11 5 10/04/19 26 Active estrogens, conjugated, (Premarin) 1.25 MG tabletIndicati ons:Dyspareuni a in female,[place]opau omar symptoms Take 1 tablet (1.25 mg) by mouth Daily 90 tablet 3 4 11/02/19 25 Discontinued cephalexin (Keflex) 500 MG capsuleIndicat ions:Dyspareun ia in female Take 1 capsule (500 mg) by mouth in the morning and 1 capsule (500 mg) before bedtime. 60 capsule 11/03/19 25 Active Problems Problem Noted Date Diagnosed Date Calculus of kidney 10/05/2022 Carpal tunnel syndrome of right wrist 10/05/2022 Dyspareunia in female 10/05/2022 Other abnormal and inconclus maria findings on diagnostic imaging of breast 10/05/2022 Encounters Date Type Department Care Team Description 11/19/2024 Refill [facility] [address] [address] [place] [address] Hari Perez DO Dyspareunia in female 11/01/2024 11:10 AM EDT Consult [facility] [address] [place] [address] Hari Perez DO Pre-op examination; Pelvic pain; Dyspareunia in female; Recurrent UTI 11/01/2024 Travel 10/05/2024 Telephone [facility] [address] [place] [address] Ashley Ross MA 10/05/2024 Telephone [facility] [address] [facility] [address] [facility] [place] [address] Ashley Ross MA 10/03/2024 9:50 AM EDT Office Visit [facility] [address] [address] [place] [address] Hari Perez DO Dyspareunia in female 10/03/2024 External Result Encounter [facility] External Department Unsolicited Hari Perez DO 10/03/2024 Bamboo flowsheet [facility] [address] [place] [address] Hari Perez DO 10/03/2024 Travel from Last 3 Months Family History Medical History Relation Name Comments Hypertension Father Mental illness Mother Cancer Paternal Grandmother Relation Name Status Comments Father Alive Maternal Grandfather Maternal Grandmother Alive Mother Alive Paternal Grandfather Alive Paternal Grandmother Sibling Alive Social History Tobacco Use Types Packs/Day Years Used Date Smoking Tobacco: Former Cigarettes Tobacco Cessation:Counseling Given: Not Answered Alcohol Use Standard Drinks/Week Comments Yes 0 (1 standard drink = 0.6 oz pure alcohol) 1-2 drinks less than monthly in the past year Comments No Sex and Gender Information Value Date Recorded Sex Assigned at Not on file Legal Sex Female 7:08 PM EDT Gender Identity Not on file Sexual Orientation Not on file Last Filed Vital Signs Vital Sign Reading Time Taken Comments Blood Pressure 110/70 11/01/2024 11:03 AM EDT Pulse - - Temperature - - Respiratory Rate - - Oxygen Saturation - - Inhaled Oxygen Concentration - - Weight 50.5 kg (111 lb 6.4 oz) 11/01/2024 11:03 AM EDT Height 152.4 cm (5') 10/07/2022 2:23 PM EDT Body Mass Index 21.76 10/07/2022 2:23 PM EDT Plan of Treatment Upcoming Encounters Date Type Department Care Team (Late st Contact Info) Description 12/07/2024 4:00 PM EDT Office Visit [facility] [address] [place] [address] Katiuska Rojas PA [address] [place] [address] Health Maintenance Due Date Last Done Comments Influenza Vaccine (#1) 2024 02/16/2024, 2021, 01/17/2021 Cervical Cancer Screening 11/21/2027 HPV/Cotest 11/21/2027 11/20/2022 Pap Smear 11/21/2027 11/20/2022, 07/14/2018 Procedures Procedure Name Priority Date/Time Associated Diagnosis Comments RECURRENT VAGINITIS (HTRX) Routine 10/03/2024 12:34 PM EDT POCT URINALYSIS DIPSTICK Routine 10/03/2024 10:39 AM EDT Dyspareunia in female THINPREP PAP AND HPV MRNA E6/E7 W/RFL HPV 16,18/45 Routine 11/20/2022 11:33 AM EDT Well woman exam with routine gynecological exam PAP SMEAR Routine 11/20/2022 12:00 AM EDT from Last 3 Months or Most Recently Relevant to Health Maintenance Results * (ABNORMAL) RECURRENT VAGINITIS (HTRX) (10/03/2024 12:34 PM EDT) [facility] ATOPOBIUM VAGINAE 17.767(A) 19.961 - 24.689 ppm 10/04/2024 7:37 AM EDT [facility] ATOPOBIUM VAGINAE Detected(A) 19.961 - 24.689 ppm 10/04/2024 7:37 AM EDT [facility] BVAB 2,3 (BACTERIAL VAGINOSIS ASSOCIATED BACTERIA 2, 3); MOBILUNCUS SPP 0 19.961 - 24.689 ppm 10/04/2024 7:37 AM EDT [facility] BVAB 2,3 (BACTERIAL VAGINOSIS ASSOCIATED BACTERIA 2, 3); MOBILUNCUS SPP Not Detected 19.961 - 24.689 ppm 10/04/2024 7:37 AM EDT [facility] WILFRIDO ALBICANS, PARAPSILOSIS, TROPICALIS 29.053(A) 19.961 - 30.770 ppm 10/04/2024 7:37 AM EDT [facility] WILFRIDO ALBICANS, PARAPSILOSIS, TROPICALIS Detected(A) 19.961 - 30.770 ppm 10/04/2024 7:37 AM EDT [facility] WILFRIDO GLABRATA 0 23.000 - 32.138 ppm 10/04/2024 7:37 AM EDT [facility] WILFRIDO GLABRATA Not Detected 23.000 - 32.138 ppm 10/04/2024 7:37 AM EDT [facility] WILFRIDO KRUSEI 0 23.000 - 32.271 ppm 10/04/2024 7:37 AM EDT [facility] WILFRIDO KRUSEI Not Detected 23.000 - 32.271 ppm 10/04/2024 7:37 AM EDT [facility] CHLAMYDIA TRACHOMATIS 0 23.000 - 31.467 ppm 10/04/2024 7:37 AM EDT [facility] CHLAMYDIA TRACHOMATIS Not Detected 23.000 - 31.467 ppm 10/04/2024 7:37 AM EDT [facility] GARDNERELLA VAGINALIS 0 19.961 - 24.689 ppm 10/04/2024 7:37 AM EDT [facility] GARDNERELLA VAGINALIS Not Detected 19.961 - 24.689 ppm 10/04/2024 7:37 AM EDT [facility] MEGASPHAERA (TYPES 1, 2) 0 19.961 - 24.689 ppm 10/04/2024 7:37 AM EDT [facility] MEGASPHAERA (TYPES 1, 2) Not Detected 19.961 - 24.689 ppm 10/04/2024 7:37 AM EDT [facility] NEISSERIA GONORRHOEAE 0 23.000 - 32.117 ppm 10/04/2024 7:37 AM EDT [facility] NEISSERIA GONORRHOEAE Not Detected 23.000 - 32.117 ppm 10/04/2024 7:37 AM EDT [facility] TRICHOMONAS VAGINALIS 0 23.000 - 32.119 ppm 10/04/2024 7:37 AM EDT [facility] TRICHOMONAS VAGINALIS Not Detected 23.000 - 32.119 ppm 10/04/2024 7:37 AM EDT [facility] MYCOPLASMA GENITALIUM 0 19.961 - 24.689 ppm 10/04/2024 7:37 AM EDT [facility] MYCOPLASMA GENITALIUM Not Detected 19.961 - 24.689 ppm 10/04/2024 7:37 AM EDT [facility] Tissue 10/03/2024 12:3 4 PM EDT 10/04/2024 2:40 AM EDT us Hari Perez DO LAB BLOOD ORDERABLES Final Resul t Performing Organization Address City/[facility]/ZIP Co de Phone Number [facility] [place] [address] * POCT urinalysis dipstick manually resulted (10/03/2024 10:39 AM EDT) Color, UA Yellow Clarity, UA Clear Glucose, UA Negative Negative - 2000(110) ++++ mg/dL Bilirubin, UA Negative Negative - 4(70) +++ mg/dL Ketones, UA Negative Negative - 160(16) ++++ mg/dL Spec Grav, UA 1.015 1 - 1.03 Blood, UA Negative Negative - 50 Devan/mcL pH, UA 7.0 5 - 9 Protein, UA Negative Negative - 2000(20) ++++ mg/dL Urobilinogen, UA 0.2 0.2 - 12 mg/dL Leukocytes, UA Negative Negative - 500+++ Tyra/mcL Nitrite, UA Negative Negative - Positive Urine 10/03/2024 10:3 9 AM EDT us Hari Perez DO POINT OF CARE TEST ENTER/EDIT OR DERABLES Final Result * THINPREP PAP AND HPV MRNA E6/E7 W/RFL HPV 16,18/45 (11/20/2022 11:33 AM EDT) us Katiuska CAIN LAB BLOOD ORDERABLES Final Resul t Performing Organization Address [facility] Co de Phone Number EXTERNAL LAB * Pap Smear (11/20/2022 12:00 AM EDT) Swab Cervical swab / Unknown us Hari Ana DO LAB CYTOLOGY ORDERABLES Final Re sult EXTERNAL LAB from Last 3 Months or Most Recently Relevant to Health Maintenance Insurance [facility] MEDICAID [place] Care Teams Gi Asst Relationship Specialty Start Date End Date Braulio Pan MD [address] [place] [address] PCP - General Family Medicine 10/07/22
--- OUTSIDE RECORDS SUMMARY | 2024-11-21 11:02 | XMS_ITS | Encounter Summary ---
Author Organization [facility] Address [address] [place] [address] Care Team Providers Care Tooling Manager Name Role Phone Braulio Pan MD Primary Care Provider [phone] Reason for Visit * Reason Comments Med Refill Encounter Details Date Type Department Care Team (Late Contact Info) Description 11/19/2024 Refill [facility] [address] [place] [address] Hari Perez DO [address] [place], [place] [address] Dyspareunia in female Social History Tobacco Use Types Packs/Day Years Used Date Smoking Tobacco: Former Cigarettes Alcohol Use Standard Drinks/Week Comments Yes 0 [...] Description 12/07/2024 4:00 PM EDT Office Visit [facility] [address] [place] [address] Katiuska Rojas PA [address] [place], [facility] documented as of this encounter Visit Diagnoses Diagnosis Dyspareunia in female documented in this encounter Care Teams Tooling Manager Relationship Specialty Start Date End Date Braulio Pan MD [address] [place] [address] PCP - General Family Medicine 10/07/22 documented as of this encounter
--- OUTSIDE RECORDS SUMMARY | 2024-11-21 11:02 | XMS_ITS | Encounter Summary ---
Author Organization [facility] Address [address] [place] [address] Care Team Providers Care Lead Cargo Mover Name Role Phone Braulio Pan MD Unavailable [phone] Braulio Pan MD Primary Care Provider [phone] Braulio Pan MD Unavailable [phone] Ruddy Pack DO Unavailable [phone] Source Comments In the event this information is protected by the Federal Confidentiality of Alcohol and Drug AbusePatient Records regulations: The Federal rules restrict any use of the information to criminally investigate or prosecute any alcohol or drug abuse patient.[facility] Encounter Details Date Type Department Care Team (Late st Contact Info) Description 05/29/2022 Patient Msg Neurology [address] [place] [address] Provider, Ccf Appointment with Massiel Natarajan Social History Tobacco Use Types Packs/Day Years Used Date Smoking Tobacco: Former Smokeless Tobacco: Never Alcohol Use Standard Drinks/Week Comments Yes 0 (1 standard drink = 0.6 oz pur e alcohol) hardly any Overall Financial Resource Strain (CARDIA) Answe r Date Recorded How hard is it for you to pa y for the very basics like food, housing, medical care, and heating? Not hard at all 01/22/2022 PHQ-2 Answer Date Recorded PHQ-2 score 0 03/25/2022 Hunger Vital Sign Answer Date Recorded Within [...] lower number is lower ri sk 53 04/25/2022 State Score (1-10), lower number is lower risk N ot on file 04/25/2022 Data from: https://www.neighborhoodatlas.medicine.[facility].edu/. Last address used for calculation [address] [address] 04/25/2022 Comments No Sex and Gender Information Value [...] suspected to have Coronavirus/COVID-19? No / Unsure 05/29/2022 3:49 PM EST documented as of this encounter Functional Status [...] Entry Date Author No 01/24/2022 2:12 PM ABBIET Cora Ruiz RN documented in this encounter Plan of Treatment Upcoming Encounters Date Type Department Care Team (Latest Contact Info) Description 12/29/2024 8:30 AM EDT [facility] Neurology Headache [facility] [address] [place] [address] Deric Fam APRN.ULTRASONIC CLEANER [address] [place] [address] re-occuring migraines documented as of this encounter Visit Diagnoses Not on filedocumented in this encounter Care Teams Lead Cargo Mover Relationship Specialty Start Date End Date Braulio Pan MD [address] [place] [address] PCP - General Family Medicine 01/22/22 Braulio Pan MD Referring Family Medicine 08/20/21 Braulio Pan MD [address] [place] [address] Referring Family Medicine 12/04/22 Ruddy Pack DO [address] [facility] [place] [address] Primary Staff Physician Cardiology 08/17/23 documented as of this encounter
--- OUTSIDE RECORDS SUMMARY | 2024-11-21 11:02 | XMS_ITS | Encounter Summary ---
Author Organization [facility] Address [address] [place] [address] Care Team Providers Care Mechanic Welder Name Role Phone Braulio Pan MD Unavailable [phone] Braulio Pan MD Primary Care Provider [phone] Braulio Pan MD Unavailable [phone] Ruddy Pack DO Unavailable [phone] Source Comments In the event this information is protected by the Federal Confidentiality of Alcohol and Drug AbusePatient Records regulations: The Federal rules restrict any use of the information to criminally investigate or prosecute any alcohol or drug abuse patient.[facility] Encounter Details Date Type Department Care Team (Late st Contact Info) Description 02/23/2022 Patient Msg Neurology [address] [place] [address] Massiel Ashford, VICE PRESIDENT MEDICAL AFFAIRS.HORTICULTURAL FARMWORKER [address] [place] [address] Labs Social History Tobacco Use Types Packs/Day Years [...] 01/22/2022 PHQ-2 Answer Date Recorded PHQ-2 score 1 01/09/2022 Hunger Vital Sign Answer Date Recorded Within [...] N ot on file 09/03/2021 Data from: https://www.neighborhoodatlas.medicine.[facility].edu/. Last address used for calculation [address] 09/03/2021 Comments No Sex and Gender Information Value Date Recorded Sex Assigned at Not on file Legal Sex Female 4:02 PM EDT Gender Identity Female 09/28/2021 10:35 PM EDT Sexual Orientation Straight 09/28/2021 10 :35 PM EDT COVID-19 Exposure Response Date Recorded In the last 10 days, have josseline guerra been in contact with someone who was confirmed or suspected to have Coronavirus/COVID-19? No / Unsure 02/19/2022 11:56 AM EST documented as of this encounter Functional [...] Contact Info) Description 12/29/2024 8:30 AM EDT [facility] Neurology Headache [facility] [address] [place] [address] Deric Fam APRN.HORTICULTURAL FARMWORKER [address] [place] [address] re-occuring migraines documented as of this encounter Visit Diagnoses Not on filedocumented in this encounter Care Teams Mechanic Welder Relationship Specialty Start Date End Date Braulio Pan MD [address] [place] [address] PCP - General Family Medicine 01/22/22 Braulio Pan MD Referring Family Medicine 08/20/21 Braulio Pan MD [address] [place] [address] Referring Family Medicine 12/04/22 Ruddy Pack DO [address] [facility] [place] [address] Primary Staff Physician Cardiology 08/17/23 documented as of this encounter
--- OUTSIDE RECORDS SUMMARY | 2024-11-21 11:02 | XMS_ITS | Encounter Summary ---
Author Organization [facility] Address [address] [place] [address] Care Team Providers Care Machine Quilt Stuffer Name Role Phone Braulio Pan MD Unavailable [phone] Braulio Pan MD Primary Care Provider +- Braulio Pan MD Unavailable [phone] Ruddy Pack DO Unavailable [phone] Source Comments In the event this information is protected by the Federal Confidentiality of Alcohol and Drug AbusePatient Records regulations: The Federal rules restrict any use of the information to criminally investigate or prosecute any alcohol or drug abuse patient.[facility] Encounter Details Date Type Department Care Team (Late st Contact Info) Description 09/06/2023 [place] [address] Provider, Ccf A Message from the [facility] Recovery Department Social History Tobacco Use Types Packs/Day Years Used Date Smoking Tobacco: Former Cigarettes 2 04 13 011 2011 Smokeless Tobacco: Never Alcohol Use Standard [...] place to sleep or slept in a mcfp (including now)? No 01/22/2022 Area Deprivation Index Answer Date Shaka rded National Score (1-100), lower number is lower ri sk 52 08/17/2023 State Score (1-10), lower number is lower risk 3 08/17/2023 Data from: https://www.neighborhoodatlas.medicine.[facility].edu/. Last address used for calculation [address] [address] 08/17/2023 Comments No Sex [...] Contact Info) Description 12/29/2024 8:30 AM EDT [facility] Neurology Headache [facility] [address] [place] [address] Deric Fam APRN.SKILLED NURSING FACILITY COUNSELOR [address] [place] [address] re-occuring migraines documented as of this encounter Goals Goal Patient Goal Type Associated Problems Recent Progress Patient-Stated? Author Blood Pressure < 130/80 Blood Pressure 126/80( 024 11:53 AM EDT) No Daxa Ascencio, EDUARDO documented as of this encounter Visit Diagnoses Not on filedocumented in this encounter Care Teams Machine Quilt Stuffer Relationship Specialty Start Date End Date Braulio Pan MD [address] [place] [address] PCP - General Family Medicine 01/22/22 Braulio Pan MD Referring Family Medicine 08/20/21 Braulio Pan MD [address] [place] [address] Referring Family Medicine 12/04/22 Ruddy Pack DO [address] [place] [address] Primary Staff Physician Cardiology 08/17/23 documented as of this encounter
--- OUTSIDE RECORDS SUMMARY | 2024-11-21 11:02 | XMS_ITS | Encounter Summary ---
Author Organization [employer] Address [id number] [address] [place] [address] Care Team Providers Care Chair Caner Name Role Phone Braulio Pan MD Primary Care Provider [phone] Encounter Details Date Type Department Care Team (Late st Contact Info) Description 08/22/2021 [facility] [address] [place] [id number] Mabel Cullen Social History Tobacco Use Types Packs/Day Years [...] suspected to have Coronavirus/COVID-19? No / Unsure 08/20/2021 12:01 PM EDT documented as of this encounter Miscellaneous Notes * Telephone Encounter - Mabel Cullen - 08/22/2021 8:53 AM EDT Received new patient referral. Please call patient to schedule a new patient appointment for Chronic daily headache. *[place]? Please make sure to verify patient insurance. * Telephone Encounter - Thea M Jonelle - 08/22/2021 8:53 AM EDT Patient has been scheduled in [place] with Dr. Hernandez for 10/10. documented in this encounter Plan of Treatment Upcoming Encounters Date Type Department Care Team ([facility] st Contact Info) Description 01/23/2025 12:30 PM EDT Office Visit [facility] [address] [address] Lorenza Duncan, PA-C [address] [facility] [address] [place] [address] documented as of this encounter Visit Diagnoses Not on filedocumented in this encounter Additional Health Concerns Infection Onset Date Last Indicated Resolved Time COVID-19 Positive 04/09/2022 04/09/2022 04/30/2022 11:12 PM EST documented as of this encounter Care Teams Chair Caner Relationship Specialty Start Date End Date Braulio Pan MD [address] [place] [address] PCP - General Family Medicine 02/11/24 documented as of this encounter
--- OUTSIDE RECORDS SUMMARY | 2024-11-21 11:02 | XMS_ITS | Encounter Summary ---
Author Organization [facility] Address [address] [place] [address] Care Team Providers Care Supply Chain Analyst Name Role Phone Braulio Pan MD Unavailable [phone] Braulio Pan MD Primary Care Provider [phone] Braulio Pan MD Unavailable [phone] Ruddy Pack DO Unavailable [phone] Source Comments In the event this information is protected by the Federal Confidentiality of Alcohol and Drug AbusePatient Records regulations: The Federal rules restrict any use of the information to criminally investigate or prosecute any alcohol or drug abuse patient.[facility] Encounter Details Date Type Department Care Team (Late st Contact Info) Description 11/01/2023 Patient Msg Cardiology [address] [place] [address] Ruddy Pack DO [address] [place] [address] Social History Tobacco Use Types Packs/Day Years [...] is lower risk 3 08/17/2023 Data from: https://www.neighborhoodatlas.medicine.[facility].edu/. Last address used for calculation [address] [address] 08/17/2023 Comments No Sex and [...] Contact Info) Description 12/29/2024 8:30 AM EDT [facility] Neurology Headache [facility] [address] [place] [address] Deric Fam APRN.ADMINISTRATIVE CLERK [address] [place] [address] re-occuring migraines documented as of this encounter Goals Goal Patient Goal Type Associated Problems Recent Progress Patient-Stated? Author Blood Pressure < 130/80 Blood Pressure 126/80( 024 11:53 AM EDT) No Daxa Ascencio RN documented as of this encounter Visit Diagnoses Not on filedocumented in this encounter Care Teams Supply Chain Analyst Relationship Specialty Start Date End Date Braulio Pan MD [address] [place] [address] PCP - General Family Medicine 01/22/22 Braulio Pan MD Referring Family Medicine 08/20/21 Braulio Pan MD [address] [place] [address] Referring Family Medicine 12/04/22 Ruddy Pack DO [address] [facility] [place] [address] Primary Staff Physician Cardiology 08/17/23 documented as of this encounter
--- OUTSIDE RECORDS SUMMARY | 2024-11-21 11:02 | XMS_ITS | Encounter Summary ---
Author Organization [facility] Address [address] [place] [address] Care Team Providers Care Protective Signal Operations Supervisor Name Role Phone Braulio Pan MD Unavailable [phone] Braulio Pan MD Primary Care Provider [phone] Braulio Pan MD Unavailable [phone] Ruddy Pack DO Unavailable [phone] Source Comments In the event this information is protected by the Federal Confidentiality of Alcohol and Drug AbusePatient Records regulations: The Federal rules restrict any use of the information to criminally investigate or prosecute any alcohol or drug abuse patient.[facility] Encounter Details Date Type Department Care Team (Late st Contact Info) Description 10/27/2023 Get Medical Advice Cardiology [address] [place] [address] Ruddy Pack DO [address] [place], [place] [id number] POTS letter Social History Tobacco Use Types Packs/Day Years [...] place to sleep or slept in a longterm (including now)? No 01/22/2022 Area Deprivation Index Answer Date Shaka rded National Score (1-100), lower number is lower ri sk 52 08/17/2023 State Score (1-10), lower number is lower risk 3 08/17/2023 Data from: https://www.neighborhoodatlas.medicine.[facility].edu/. Last address used for calculation [address] [address] 08/17/2023 Comments No [...] encounter Miscellaneous Notes * Telephone Encounter - Yvonne Christian - 10/27/2023 5:00 PM EDT Please contact patient regarding Nextwortht message. documented in this encounter Plan of Treatment Upcoming Encounters Date Type Department Care Team (Latest Contact Info) Description 12/29/2024 8:30 AM EDT [facility] [address] [place] [address] Deric Fam APRN.SERVICE SUPERVISOR [address] [place] [address] re-occuring migraines documented as of this encounter Goals Goal Patient Goal Type Associated Problems Recent Progress Patient-Stated? Author Blood Pressure < 130/80 Blood Pressure 126/80( 024 11:53 AM EDT) No Daxa Ascencio EDUARDO documented as of this encounter Visit Diagnoses Not on filedocumented in this encounter Care Teams Protective Signal Operations Supervisor Relationship Specialty Start Date End Date Braulio Pan MD [address] [place] [address] PCP - General Family Medicine 01/22/22 Braulio Pan MD Referring Family Medicine 08/20/21 Braulio Pan MD [address] [place] [address] Referring Family Medicine 12/04/22 Ruddy Pack DO [address] [place] [address] Primary Staff Physician Cardiology 08/17/23 documented as of this encounter
--- OUTSIDE RECORDS SUMMARY | 2024-11-21 11:02 | XMS_ITS | Patient Health Record ---
Author Organization [facility] Address [address] [place] [address] Care Team Providers Care Veterinary Manager Name Role Phone Braulio Pan Primary Care Provider Beto Santacruz Unavailable [phone] Izabel Hernandez Unavailable [phone] Results Component Value Reference Range Notes Surgery Scheduling Reviewed date:06/08/2024 01:23:35 PM Interpretation:[facility] @ [facility] 02/28/24 Performing Lab: Notes/Report: [facility] @ [facility] 02/28/24 Primary Insurance Company: Medicaid Surgeon/Assist: Hanane Surgery Location: [facility] Surgery Date & Time: 02/28/24 @ 1:30 p.m. Surgery End Time: 45 minutes Procedure: Right Wrist Ganglion /Mass Excision, [id number] Diagnosis: Right Wrist Ganglion Cyst,, M67.431 Admission Type: Outpatient Anesthesia Type/CPNB: General Post-op Appointment Date: 03/13/24 @ 10:3 0 a.m. [place] office Latex Allergy No Lab Location: [facility] Lab Date/Time: 02/23/24 @ 8;00 a.m. Environmental Services Supervisor: Cata [facility]ST 3 VIEW RIGHT 7311 0 Reviewed date:06/08/2024 01:23:30 PM Interpretation: Performing Lab: Notes/Report: Reason For Referral Reason MARIO.....Obtain autho rization for right wrist ganglion cyst excision Chap[place]ito Meade 02/16/2024 10:42:08 AM >Cpt code 11138 Diagnosis 1 Ganglion of right wr ist (M67.431) Referral Organization [facility] Referring Provider First Name Beto Referring Provider Last Name Hanane Referring Provider Speciality Orthopedic Surgery Referred Organization [facility] Outpatient Referred Address [address] [facility],[address], General Notes Katiuska Landeros 024 10:38:32 AM >NEED SX AUTH PLEASE, Araceli Meaded 02/16/2024 10:42:08 AM >Cpt code 60463, Katiuska Lanedros 02/16/2024 11:30:46 AM >PATIENT DOES NOT HAVE [place] MEDICAID, THEY HAVE [facility] MEDICAID, Katiuska Landeros 02/16/2024 11:37:17 AM >PER [facility] CODE CLERK GENERAL, NO AUTH REQUIRED MA NOTIFIED REF FAXED TO [facility] Priority Routine Referral Appointment Date 02/28/2024 Social History Tobacco Use: Social History Observation Description Date Details (start date - stop date) Never Smoker NA - NA AUDIT-C (Standard) Question Answer Notes Did you have a drink containing alcohol in the p ast year? No Points 0 Interpretation Negative Tobacco Control (Standard) Question Answer Notes Tobacco use: Nonsmoker Problems Problem Type SNOMED Code ICD Code Onset Dates Problem Status W/U Status Risk Notes Problem Ganglion of right wrist (M67.431) Active confirmed Vital Signs Height 6' in 02/16/2024 Weight 120 lbs 02/16/2024 BMI 16.27 02/16/2024 Encounters Encounter Location Date Provider Diagnosis [facility] Office [address] VERDU[place] [address] [place] [phone] 02/16/2024 Izabel Hernandez Ganglion of right wrist M67.431 [facility] Outpatient [address] [place] [address] 02/28/2024 Beto Koo Ganglion of right wrist M67.431 [facility] Office [address] [place] [address] 03/13/2024 Beto Koo Ganglion of right wrist M67.431 Assessments Encounter Date Diagnosis (ICD Code) Assessment Notes Treatment Notes Treatment Clinical Notes Section Notes 02/16/2024 Ganglion of right wrist (ICD-10 - M67.431) 02/28/2024 Ganglion of right wrist (ICD-10 - M67.431) 03/13/2024 Ganglion of right wrist (ICD-10 - M67.431) 02/16/2024 Other We discussed treatment options today. At this point she would like to have it surgically removed. We did discuss the 20% chance of recurrence when she is okay with.I discussed the procedure with the patient at length including all potential risks, benefits, and complications. I answered all the patient's questions to her satisfaction. No guarantees were given as to surgical outcome. The patient has elected to go forward with surgical intervention, and this will be scheduled to be performed at a date and time to be determined. This will serve as the H & P. Plan has been agreed upon by my supervising physician, Dr. Hanane MD. 03/13/2024 Other Patient is doing well after right dorsal ganglion wrist excision. She will progress with activities as tolerated. Sutures removed today in clinic. She will follow-up on an as-needed basis. Import medication Plan Of Treatment No Information Insurance Providers Payer Name Payer Address Payer Phone Subscriber Number Group Number Insured Name Patient Relationship to Insured Coverage Start Date Coverage End Date Medicaid [employer] [place] [address] [place] [address] [id number] PASTOR HELLER Self - patient is the insured Medical (General) History Surgical History Surgery Date(Month/Year) Right wrist ganglion cyst excision 02/27
--- OUTSIDE RECORDS SUMMARY | 2024-11-21 11:02 | XMS_ITS | Encounter Summary ---
Author Organization [facility] Address [address] [place] [address] Care Team Providers Care Non Destructive Testing Scientist Name Role Phone Braulio Pan MD Unavailable [phone] Braulio Pan MD Primary Care Provider [phone] Braulio Pan MD Unavailable [phone] Ruddy Pack DO Unavailable [phone] Source Comments In the event this information is protected by the Federal Confidentiality of Alcohol and Drug AbusePatient Records regulations: The Federal rules restrict any use of the information to criminally investigate or prosecute any alcohol or drug abuse patient.[facility] Encounter Details Date Type Department Care Team (Late st Contact Info) Description 09/30/2021 Patient Msg Peds Cognitive [facility] [address] [place] [address] Samy Spivey PA-C [address] [place] [address] follow up Social History Tobacco Use Types Packs/Day Years [...] N ot on file 09/03/2021 Data from: https://www.neighborhoodatlas.medicine.[facility].edu/. Last address used for calculation [address] [address] 09/03/2021 Comments No Sex and [...] Contact Info) Description 12/29/2024 8:30 AM EDT [facility] Neurology Headache [facility] [address] [place] [address] Deric Fam APRN.COTTON WASHER [address] [place] [address] re-occuring migraines documented as of this encounter Visit Diagnoses Not on filedocumented in this encounter Additional Health Concerns Infection Onset Date Last Indicated Resolved Time COVID-19 Rule-Out 01/22/2022 01/22/2022 01/22/2022 5:51 AM EDT documented as of this encounter Care Teams Non Destructive Testing Scientist Relationship Specialty Start Date End Date Braulio Pan MD [address] [place] [address] PCP - General Family Medicine 01/22/22 Braulio Pan MD Referring Family Medicine 08/20/21 Braulio aPn MD [address] [place] [address] Referring Family Medicine 12/04/22 Ruddy Pack DO [address] [facility] [place] [address] Primary Staff Physician Cardiology 08/17/23 documented as of this encounter
--- OUTSIDE RECORDS SUMMARY | 2024-11-21 11:02 | XMS_ITS | Encounter Summary ---
Author Organization [facility] Address [address] [place] [address] Care Team Providers Care Skate Shop Attendant Name Role Phone Braulio Pan MD Primary Care Provider [phone] Encounter Details Date Type Department Care Team (Late Contact Info) Description 08/17/2023 Abstract [facility] [address] [address] Hari Perez DO [address] [place], [place] [address] Social History Tobacco Use Types Packs/Day Years Used Date Smoking Tobacco: Former Cigarettes Alcohol Use Standard Drinks/Week Comments Yes 0 (1 standard drink = 0.6 oz pure alcohol) 1-2 drinks less than monthly in the past year Comments Unknown Sex and Gender Information Value Date Recorded Sex Assigned at Not on file Legal Sex Female 7:08 PM EDT Gender Identity Not on file Sexual Orientation Not on file documented as of this encounter Plan of Treatment Upcoming Encounters Date Type Department Care Team (Late st Contact Info) Description 12/07/2024 4:00 PM EDT Office Visit [facility] GALICIA [address] [address] Katiuska Rojas PA [address] [place], [facility] documented as of this encounter Visit Diagnoses Not on filedocumented in this encounter Care Teams Skate Shop Attendant Relationship Specialty Start Date End Date Braulio Pan MD [address] [place] [address] PCP - General Family Medicine 10/07/22 documented as of this encounter
--- OUTSIDE RECORDS SUMMARY | 2024-11-21 11:02 | XMS_ITS | Encounter Summary ---
Author Organization [facility] Address [address] [place] [address] Care Team Providers Care Therapy Teacher Name Role Phone Braulio Pan MD Unavailable [phone] Braulio Pan MD Primary Care Provider [phone] Braulio Pan MD Unavailable [phone] Ruddy Pack DO Unavailable [phone] Source Comments In the event this information is protected by the Federal Confidentiality of Alcohol and Drug AbusePatient Records regulations: The Federal rules restrict any use of the information to criminally investigate or prosecute any alcohol or drug abuse patient.[facility] Encounter Details Date Type Department Care Team (Late st Contact Info) Description 10/27/2023 Patient Msg Neurology [address] [place] [address] Sweta Wang PA-C [address] [place] [address] Appointment Request Social History Tobacco [...] risk 3 08/17/2023 Data from: https://www.neighborhoodatlas.medicine.[facility].edu/. Last address used for calculation [address] [address] 08/17/2023 Comments No [...] Contact Info) Description 12/29/2024 8:30 AM EDT [facility] Neurology Headache [facility] [address] [place] [address] Deric Fam APRN.VP CONSTRUCTION [address] [place] [address] re-occuring migraines documented as of this encounter Goals Goal Patient Goal Type Associated Problems Recent Progress Patient-Stated? Author Blood Pressure < 130/80 Blood Pressure 126/80( 024 11:53 AM EDT) No Daxa Ascencio RN documented as of this encounter Visit Diagnoses Not on filedocumented in this encounter Care Teams Therapy Teacher Relationship Specialty Start Date End Date Braulio Pan MD [address] [place] [address] PCP - General Family Medicine 01/22/22 Braulio Pan MD Referring Family Medicine 08/20/21 Braulio Pan MD [address] [place] [address] Referring Family Medicine 12/04/22 Ruddy Pack DO [address] [place] [address] Primary Staff Physician Cardiology 08/17/23 documented as of this encounter
--- OUTSIDE RECORDS SUMMARY | 2024-11-21 11:02 | XMS_ITS | Encounter Summary ---
Author Organization [facility] Address [address] [place] [address] Care Team Providers Care Mumps Developer Name Role Phone Braulio Pan MD Unavailable [phone] Braulio Pan MD Primary Care Provider [phone] Braulio Pan MD Unavailable [phone] Ruddy Pack DO Unavailable [phone] Source Comments In the event this information is protected by the Federal Confidentiality of Alcohol and Drug AbusePatient Records regulations: The Federal rules restrict any use of the information to criminally investigate or prosecute any alcohol or drug abuse patient.[facility] Encounter Details Date Type Department Care Team (Latest Contact Info) Description 09/13/2023 [place] [address] Provider, Ccf REMINDER: [facility] Questionnaires [...] is lower risk 3 08/17/2023 Data from: https://www.neighborhoodatlas.medicine.[facility].edu/. Last address used for calculation [address] [address] 08/17/2023 Comments No Sex [...] Contact Info) Description 12/29/2024 8:30 AM EDT [facility] Neurology Headache [facility] [address] [place] [address] Deric Fam APRN.REFINING ENGINEER [address] [place] [address] re-occuring migraines documented as of this encounter Goals Goal Patient Goal Type Associated Problems Recent Progress Patient-Stated? Author Blood Pressure < 130/80 Blood Pressure 126/80( 024 11:53 AM EDT) No Daxa Ascencio RN documented as of this encounter Visit Diagnoses Not on filedocumented in this encounter Care Teams Mumps Developer Relationship Specialty Start Date End Date Braulio Pan MD [address] [place] [address] PCP - General Family Medicine 01/22/22 Braulio Pan MD Referring Family Medicine 08/20/21 Braulio Pan MD [address] [place] [address] Referring Family Medicine 12/04/22 Ruddy Pack DO [address] [place] [address] Primary Staff Physician Cardiology 08/17/23 documented as of this encounter
--- OUTSIDE RECORDS SUMMARY | 2024-11-21 11:02 | XMS_ITS | Encounter Summary ---
Author Organization [facility] Address [address] [place] [address] Care Team Providers Care Studio Operator Name Role Phone Braulio Pan MD Unavailable [phone] Braulio Pan MD Primary Care Provider +- Braulio Pan MD Unavailable [phone] Ruddy Pack DO Unavailable [phone] Source Comments In the event this information is protected by the Federal Confidentiality of Alcohol and Drug AbusePatient Records regulations: The Federal rules restrict any use of the information to criminally investigate or prosecute any alcohol or drug abuse patient.[facility] Encounter Details Date Type Department Care Team (Late st Contact Info) Description 12/05/2023 [place] [address] Provider, Ccf A Message from the [facility] Recovery Department Social History Tobacco Use [...] place to sleep or slept in a usp (including now)? No 01/22/2022 Area Deprivation Index Answer Date Shaka rded National Score (1-100), lower number is lower ri sk 52 08/17/2023 State Score (1-10), lower number is lower risk 3 08/17/2023 Data from: https://www.neighborhoodatlas.medicine.[facility].edu/. Last address used for calculation [address] 08/17/2023 Comments No Sex [...] Contact Info) Description 12/29/2024 8:30 AM EDT [facility] Neurology Headache [facility] [address] [place] [address] Deric Fam APRN.CHAIR FINISHER [address] [place] [address] re-occuring migraines documented as of this encounter Goals Goal Patient Goal Type Associated Problems Recent Progress Patient-Stated? Author Blood Pressure < 130/80 Blood Pressure 126/80( 024 11:53 AM EDT) No Daxa Ascencio, EDUARDO documented as of this encounter Visit Diagnoses Not on filedocumented in this encounter Care Teams Studio Operator Relationship Specialty Start Date End Date Braulio Pan MD [address] [place] [address] PCP - General Family Medicine 01/22/22 Braulio Pan MD Referring Family Medicine 08/20/21 Braulio Pan MD [address] [place] [address] Referring Family Medicine 12/04/22 Ruddy Pack DO [address] [place] [address] Primary Staff Physician Cardiology 08/17/23 documented as of this encounter
--- OUTSIDE RECORDS SUMMARY | 2024-11-21 11:02 | XMS_ITS | Encounter Summary ---
Author Organization [facility] Address [address] [place] [address] Care Team Providers Care Solid Waste Collection Worker Name Role Phone Braulio aPn MD Unavailable [phone] Braulio Pan MD Primary Care Provider [phone] Braulio Pan MD Unavailable [phone] Ruddy Pack DO Unavailable [phone] Source Comments In the event this information is protected by the Federal Confidentiality of Alcohol and Drug AbusePatient Records regulations: The Federal rules restrict any use of the information to criminally investigate or prosecute any alcohol or drug abuse patient.[facility] Encounter Details Date Type Department Care Team (Late st Contact Info) Description 02/11/2023 Patient Msg Cardiology [address] [place] [address] Sujit Dougherty MD [address] [place] [address] labs and echo Social History Tobacco Use Types Packs/Day Years [...] is lower risk 8 02/10/2023 Data from: https://www.neighborhoodatlas.medicine.[facility].edu/. Last address used for calculation [address] 02/10/2023 Comments No Sex and Gender [...] Contact Info) Description 12/29/2024 8:30 AM EDT [facility] Neurology Headache [facility] [address] [place] [address] Deric Fam APRN.NURSES AIDE [address] [place] [address] re-occuring migraines documented as of this encounter Visit Diagnoses Not on filedocumented in this encounter Care Teams Solid Waste Collection Worker Relationship Specialty Start Date End Date Braulio Pan MD [address] [place] [address] PCP - General Family Medicine 01/22/22 Braulio Pan MD Referring Family Medicine 08/20/21 Braulio Pan MD [address] [place] [address] Referring Family Medicine 12/04/22 Ruddy Pack DO [address] [place] [address] Primary Staff Physician Cardiology 08/17/23 documented as of this encounter
--- OUTSIDE RECORDS SUMMARY | 2024-11-21 11:02 | XMS_ITS | Encounter Summary ---
Author Organization [facility] Address [address] [place] [address] Care Team Providers Care Phone Manager Name Role Phone Braulio Pan MD Unavailable [phone] Braulio Pan MD Primary Care Provider [phone] Braulio Pan MD Unavailable [phone] Ruddy Pack DO Unavailable [phone] Source Comments In the event this information is protected by the Federal Confidentiality of Alcohol and Drug AbusePatient Records regulations: The Federal rules restrict any use of the information to criminally investigate or prosecute any alcohol or drug abuse patient.[facility] Encounter Details Date Type Department Care Team (Late st Contact Info) Description 02/13/2024 Patient Msg Neurology [address] [place] [id number] Jhoana Daily MD [address] [place] [address] Appointment Request Social History Tobacco [...] is lower risk 3 08/17/2023 Data from: https://www.neighborhoodatlas.medicine.[facility].edu/. Last address used for calculation [address] 08/17/2023 Comments No Sex and [...] Contact Info) Description 12/29/2024 8:30 AM EDT [facility] Neurology Headache [facility] [address] [place] [address] Deric Fam APRN.COURT COLLECTIONS OFFICER [address] [place] [address] re-occuring migraines documented as of this encounter Goals Goal Patient Goal Type Associated Problems Recent Progress Patient-Stated? Author Blood Pressure < 130/80 Blood Pressure 126/80( 024 11:53 AM EDT) No Daxa Ascencio RN documented as of this encounter Visit Diagnoses Not on filedocumented in this encounter Care Teams Phone Manager Relationship Specialty Start Date End Date Braulio Pan MD [address] [place] [address] PCP - General Family Medicine 01/22/22 Braulio Pan MD Referring Family Medicine 08/20/21 Braulio Pan MD [address] [place] [address] Referring Family Medicine 12/04/22 Ruddy Pack DO [address] [facility] [address] Primary Staff Physician Cardiology 08/17/23 documented as of this encounter
--- OUTSIDE RECORDS SUMMARY | 2024-11-21 11:02 | XMS_ITS | Encounter Summary ---
Author Organization [facility] Address [address] [place] [address] Care Team Providers Care Road Conductor Name Role Phone Braulio Pan MD Unavailable [phone] Braulio Pan MD Primary Care Provider [phone] Braulio Pan MD Unavailable [phone] Ruddy Pack DO Unavailable [phone] Source Comments In the event this information is protected by the Federal Confidentiality of Alcohol and Drug AbusePatient Records regulations: The Federal rules restrict any use of the information to criminally investigate or prosecute any alcohol or drug abuse patient.[facility] Encounter Details Date Type Department Care Team (Latest Contact Info) Description 12/12/2023 [place] [address] Provider, Ccf REMINDER: [facility] Questionnaires [...] is lower risk 3 08/17/2023 Data from: https://www.neighborhoodatlas.medicine.[facility].edu/. Last address used for calculation [address] [...] Contact Info) Description 12/29/2024 8:30 AM EDT [facility] Neurology Headache [facility] [address] [place] [address] Deric Fam APRN.DIRECTOR TRANSPORTATION [address] [place] [address] re-occuring migraines documented as of this encounter Goals Goal Patient Goal Type Associated Problems Recent Progress Patient-Stated? Author Blood Pressure < 130/80 Blood Pressure 126/80( 024 11:53 AM EDT) No Daxa Ascencio RN documented as of this encounter Visit Diagnoses Not on filedocumented in this encounter Care Teams Road Conductor Relationship Specialty Start Date End Date Braulio Pan MD [address] [place] [address] PCP - General Family Medicine 01/22/22 Braulio Pan MD Referring Family Medicine 08/20/21 Braulio Pan MD [address] [place] [address] Referring Family Medicine 12/04/22 Ruddy Pack DO [address] [place] [address] Primary Staff Physician Cardiology 08/17/23 documented as of this encounter
--- OUTSIDE RECORDS SUMMARY | 2024-11-21 11:02 | XMS_ITS | Encounter Summary ---
Author Organization [facility] Address [address] [place] [address] Care Team Providers Care Machine Egg Washer Name Role Phone Braulio Pan MD Primary Care Provider [phone] Reason for Visit * Reason Comments Med Refill Encounter Details Date Type Department Care Team (Late Contact Info) Description 06/09/2024 Refill [facility] [address] [place] [address] Hari Perez DO [address] [place], [place] [address] Dyspareunia in female Social History Tobacco Use [...] PM EDT Office Visit [facility] [address] [place] [address] Katiuska Rojas PA [address] [place], [id number] documented as of this encounter Visit Diagnoses Diagnosis Dyspareunia in female documented in this encounter Care Teams Machine Egg Washer Relationship Specialty Start Date End Date Braulio Pan MD [address] [place] [address] PCP - General Family Medicine 10/07/22 documented as of this encounter
--- OUTSIDE RECORDS SUMMARY | 2024-11-21 11:02 | XMS_ITS | Encounter Summary ---
Author Organization [facility] Address [address] [place] [address] Care Team Providers Care Data Capture Clerk Name Role Phone Braulio Pan MD Unavailable [phone] Braulio Pan MD Primary Care Provider [phone] Braulio Pan MD Unavailable [phone] Ruddy Pack DO Unavailable Source Comments In the event this information is protected by the Federal Confidentiality of Alcohol and Drug AbusePatient Records regulations: The Federal rules restrict any use of the information to criminally investigate or prosecute any alcohol or drug abuse patient.[facility] Encounter Details Date Type Department Care Team (Late st Contact Info) Description 10/27/2023 Get Medical Advice Neurology [address] [place] [address] Jhoana Daily MD [address] [place] [address] Letter for Headaches Social History Tobacco Use Types Packs/Day Years [...] is lower risk 3 08/17/2023 Data from: https://www.neighborhoodatlas.medicine.[facility].edu/. Last address used for calculation [address] 08/17/2023 Comments No Sex and [...] encounter Miscellaneous Notes * Telephone Encounter - Linda Arroyo - 10/29/2023 3:59 PM EDT Patient last seen on 05/03/23 documented in this encounter Plan of Treatment Upcoming Encounters Date Type Department Care Team (Latest Contact Info) Description 12/29/2024 8:30 AM EDT [facility] Neurology Headache [facility] [address] [place] [address] Deric Fam APRN.FOOTWEAR SALES ASSOCIATE [address] [place] [address] re-occuring migraines documented as of this encounter Goals Goal Patient Goal Type Associated Problems Recent Progress Patient-Stated? Author Blood Pressure < 130/80 Blood Pressure 126/80( 024 11:53 AM EDT) No Silva Daxa, EDUARDO documented as of this encounter Visit Diagnoses Not on filedocumented in this encounter Care Teams Data Capture Clerk Relationship Specialty Start Date End Date Braulio Pan MD [address] [place] [address] PCP - General Family Medicine 01/22/22 Braulio Pan MD Referring Family Medicine 08/20/21 Braulio Pan MD [address] [place] [address] Referring Family Medicine 12/04/22 Ruddy Pack DO [address] [facility] [address] Primary Staff Physician Cardiology 08/17/23 documented as of this encounter
--- OUTSIDE RECORDS SUMMARY | 2024-11-21 11:03 | XMS_ITS | Patient Health Record ---
Author Organization [facility] in [place] Address [address] [place] [address] Care Team Providers Care Floor Manager Name Role Phone Jax Pan Primary Care Provider [phone] Margaret Gonzalez Unavailable [phone] Allergies Allergen (clinical drug ingredient) Drug/Non Drug Allergy documented on EMR Reaction Allergy Type Onset Date Status sulfamethoxazole / trimethoprim Bactrim Unknown Drug Allergy Active morphine Morphine Sulfate tachycardia Drug Allergy Active Substance with sulfonamide structure and antibacterial mechanism of action (substance) Sulfa Antibiotics Unknown Drug Allergy Active Results Component Value Reference Range Notes MUMPS VIRUS IgG Reviewed date:02/11/2024 09:28:10 PM Interpretation: Performing Lab:[facility] ([facility]), [address] [place] [address] AVE[address] [place] [address]. [address] PH:[phone] Notes/Report: MUMPS VIRUS IgG 2.5 <0.9 AI <0.9 Negative >1.0 Positive PERFORMED AT [address] [place] [address] Interpreta tion-------- 0.9 - 1.0 Equivocal RUBEOLA AB SCREEN Reviewed date:02/11/2024 09:28:10 PM Interpretation: Performing Lab:[facility] ([facility]), [facility] [address] [place] [address]. [address] PH:[phone] Notes/Report: RUBEOLA AB SCREEN 1.9 <0.9 AI and immunity. previous exposure to rubeola virus POSITIVE: Antibody(IgG) detected. Indicates PERFORMED AT [address] [address] RUBELLA IgG Reviewed date:02/11/2024 09:28:10 PM Interpretation: Performing Lab:[facility] ([facility]), [address] [place] [address], [address] [address] PH:[phone] Notes/Report: RUBELLA IMMUNE IgG 1.6 0.8-0.9 EQUIVOCAL-consider retesting with new specimen <0.8 NEGATIVE-considered Not Immune PERFORMED AT [address] [address] Interpreta tion-------- >0.9 POSITIVE-considered Immune COMPREHENSIVE METABOLIC PANE L Reviewed date:02/11/2024 09:28:10 PM Interpretation: Performing Lab:[facility] ([facility]), [address] [place] [address]. [address] PH:[phone] Notes/Report: SODIUM 140 134-146 mmol/L POTASSIUM 4.0 3.5-5.0 mmol/L CHLORIDE 103 98-109 mmol/L CARBON DIOXIDE 27 22-32 mmol/L ANION GAP 10 5-15 mmol/L BLOOD UREA NITROGEN 9 5-23 mg/dL CREATININE 0.72 0.40-1.00 mg/dL METHOD TRACE ABLE TO DAY [facility] STANDARD GLUCOSE 90 65-99 mg/dL CALCIUM 9.1 8.5-10.5 mg/dL TOTAL PROTEIN 7.2 6.0-8.0 g/dL ALBUMIN 4.4 3.2-5.3 g/dL ALKALINE PHOSPHATASE 47 39-130 U/L AST 17 0-41 U/L ALT 10 0-31 U/L BILIRUBIN,TOTAL 0.4 0.3-1.2 mg/dL eGFR (CKD-EPI) NON-RACE DEPENDENT >90 >59 ml/min/1.73sq.m PERFORMED AT [address] [address] not use a race coefficient. CKD-EPI 2020 equation that does Reported eGFR is based on the FREE T3 Reviewed date:02/11/2024 09:28:10 PM Interpretation: Performing Lab:[facility] ([facility]), [address] [place] [address], [address] [address] PH:[phone] Notes/Report: FREE T3 3.00 2.50-3.90 pg/mL PERFORMED AT [address] [address] IRON Reviewed date:02/11/2024 09:28:10 PM Interpretation: Performing Lab:[facility] ([facility]), [address] [place] [address], [address] [address] PH:[phone] Notes/Report: IRON 87 50-170 ug/dL PERFORMED AT [address] [address] VARICELLA ZOSTER IGG Reviewed date:02/11/2024 09:28:10 PM Interpretation: Performing Lab:[facility] ([facility]), [address] [place] [address], [address] [address] PH:[phone] Notes/Report: VARICELLA IgG 1.6 <0.9 AI <0.9 Negative >1.0 Positive 0.9 - 1.0 Equivocal PERFORMED AT [address] [address] Interpreta tion-------- THYROID PROFILE Reviewed date:02/11/2024 09:28:10 PM Interpretation: Performing Lab:[facility] ([facility]), [address] [place] [address], [address] [address] PH:[phone] Notes/Report: TSH 1.24 0.49-4.67 uIU/mL FREE T4 1.00 0.61-1.60 ng/dL PERFORMED AT [address] [address] Anti HBs quantitative Reviewed date:02/11/2024 09:28:10 PM Interpretation: Performing Lab:[facility] ([facility]), [address] [place] [address], [address] [address] PH:[phone] Notes/Report: Anti HBs quant. 6874.12 Vaccinated: >=12mIU/mL, Positive (Immune) 8-11.99 mIU/mL: Indeterminate, PERFORMED AT [address] [address] Unvaccinated: <8mIU/mL, Negative (Not Immune) (Considered Not Immune) LIPID PANEL Reviewed date:02/11/2024 09:28:10 PM Interpretation: Performing Lab:[facility] ([facility]), [address] [place] [address], [address] [address] PH:[phone] Notes/Report: CHOLESTEROL 203 150-200 mg/dL TRIGLYCERIDE 140 27-150 mg/dL HDL CHOLESTEROL 50 >39 mg/dL ----- HDL >60 mg/dL - Negative Risk HDL > or = 40mg/dL- Desirable HDL <40 mg/dL - High Risk VERY LOW LIPOPROTEIN 28 0-30 mg/dL LDL (CALC) 125 <130 mg/dL ----- LDL >160 mg/dL - High Risk LDL <100 mg/dL - Desirable CHOLESTEROL:HDL 4.1 1.0-5.0 PERFORMED AT [address] [address] B. PERTUSSIS, IGA, IGG, IGM Reviewed date:02/16/2024 09:21:22 PM Interpretation: Performing Lab:[facility], [address] [place] [address].[place]. [address] PH:[phone] Notes/Report: B.PERTUSSIS,IGA/FHA EQUIVOCAL B.PERTUSSIS,IGA/PT Negative B.PERTUSSIS IGA INT SEE NOTE Negative Recommend retesting in 2-4 weeks. PT (Pertussis toxin) is (Filamentous hemagglutinin) is an antigen common to multiple specific to Bordetella pertussis. FHA (Filamentous hemagglutinin) (Pertussis toxin) is specific to Bordetella pertussis. FHA NOTE Questionable presence of IgA antibodies to Bordetella FHA. species of Bordetella. is an antigen common to multiple species of Bordetella. PT B. pertussis, IgG/FHA Positive B. pertussis, IgG/PT EQUIVOCAL B. pertussis, IgG/PT100 Negative B. pertussis, IgG Interp SEE NOTE Negative Bordetella species. Questionable presence of IgG antibodies is an antigen common to multiple species of Bordetella. IgG antibodies against Bordetella FHA detected, which may suggest against Bordetella pertussis PT detected. Recommend retesting in specific to Bordetella pertussis. FHA (Filamentous hemagglutinin) past vaccination to Bordetella pertussis and/or infection with NOTE with recent infections/vaccinati ons. PT (Pertussis toxin) is concentrations of pertussis toxin-specific antibodies associated 2-4 weeks. PT100 (Pertussis toxin 100 IU/ml) detects high B. pertussis, IgM/FHA Negative B. pertussis, IgM/PT Negative B. pertussis, IgM Interp Negative Negative INTREPRETIVE INFORMATION: B. pertussis Antibody, CLIA Number: [id number] NOTE approved by the US Food and Drug Administration. This test was determined by [facility]. It has not been cleared or Physician Assistant Psychiatry: Shawn Lacey MD, [place] [address] Performed By: [facility] PERFORMED AT [address] [place] [address] IgM Immunoblot No IgM antibodies against Bordetella FHA and PT detected. This test was developed and its performance characteristics performed in a CLIA certified laboratory and is intended for [address] [place] [address] [facility] Reviewed date:05/11/2024 10:07:29 PM Interpretation: Performing Lab: Notes/Report: Source Facility: [place] [address] [address] Ultrasound Report Signed Patient: PASTOR HAWTHORNE MR#: [id number] : 1990 Acct:[id number] Age/Sex: 33 / F ADM Date: 05/11/24 Loc: ER Attending Dr: Ordering Physician: Lorena Boothe Date of Service: 05/11/24 Procedure(s): US right upper quadrant Accession Number(s): [id number] cc: Braulio Pan M.D.; Lorena Boothe [address] [address] Patient Name: PASTOR HAWTHORNE MRN: [facility]:[id number] date: 1990 Sex: F Assigned Patient Location: ER Current Patient Location: ER Accession/Order Number: [id number] Exam Date: 05/11/2024 15:08 Report Date: 05/11/2024 16:17 At the request of: LORENA BOOTHE Procedure: US right upper quadrant Ultrasound abdomen right upper quadrant HISTORY: Abnormal CT , right upper quadrant pain with nausea and vomiting. Patient is not nothing by mouth. Patient last ate recently. COMPARISON: CT 05/11/2024 TECHNIQUE: Dedicated transabdominal right upper quadrant ultrasound was performed. FINDINGS: Gallbladder markedly contracted. Gallbladder wall thickness is 3 mm that is artifactual due to contracted state. There is no discrete gallstone identified. No sludge is seen. No pericholecystic fluid is seen, and the sonographic Rosado's sign is negative. The proximal common bile duct measures 3 mm in diameter. There is no intrahepatic bile duct dilatation. The liver demonstrates normal echotexture and echogenicity. No discrete liver lesion seen. The visualized pancreas is normal. Portions of the pancreas are obscured by overlying bowel gas. The right kidney measures 10.8 x 4.8 x 4.5 cm. There is no hydronephrosis in the right kidney. There is no fluid in the right upper quadrant. US/US right upper quadrant IMPRESSION: 1. Markedly contracted gallbladder; patient ate recently as stomach is distended with large amount of food on the recent CT 2 hours ago. No gallstones or sonographic findings for acute cholecystitis. 2. Normal caliber common bile duct at 3 mm. 3. Right kidney without hydronephrosis. Electronically authenticated by: JEAN-CLAUDE GODFREY Date: 05/11/2024 16:17 Dictated By: Jean-Claude Godfrey M.D. Signed By: 05/11/24 1620 DD/ 1617 TD/TT: Manager Track: [place] [address] Ultrasound Report Signed Patient: JERSON HAWTHORNE MR#: [id number] : 1990 Acct:[id number] Age/Sex: 33 / F ADM Date: 05/11/24 Loc: ER Attending Dr: Ordering Physician: Lorena Boothe Date of Service: 05/11/24 Procedure(s): US rig ht upper quadrant Accession Number(s): [id number] cc: Braulio Pan M.D. ; Lorena Boothe [place] [id number] Patient Name: PASTOR HAWTHORNE MRN: [facility]:[id number] date: 1990 Sex: F Assigned Patient Location: ER Current Patient Location: ER Accession/Order Numb er: [id number] Exam Date: 05/11/2024 15:08 Report Date: 05/11/2024 16:17 At the request of: LORENA BOOTHE Procedure: US right upper quadrant Ultrasound abdomen right upper quadrant HISTORY: Abnormal CT , right upper quadrant pain with nausea and vomiting. Patient is not nothi ng by mouth. Patient last ate recently. COMPARISON: CT 05/11/2024 TECHNIQUE: Dedicated transabdominal right upper quadrant ultrasound was performed. FINDINGS: Gallbladder markedly contracted. Gallbladder wall thickness is 3 mm that is artifactual due to contracted state. There is no discrete gallstone identified. No sludge is seen. N o pericholecystic fluid is seen, and the sonographic Rosado's sign is negative. The proximal common bile duct measures 3 mm in diameter. There is no intrahepatic bile du ct dilatation. The liver demonstrates normal echotexture and echogenicity. No discrete liver lesion seen. The visualized pancr eas is normal. Portions of the pancreas are obscured by overlying bowel gas. The right kidney measures 10.8 x 4.8 x 4.5 cm. There is no hydronephrosis in the right kidney. There is no fluid in the right upper quadrant. US/US right upper quadrant IMPRESSION: 1. Markedly contract ed gallbladder; patient ate recently as stomach is distended with large amount of food on the recent CT 2 hours ago. No gallstones or sonographic findi ngs for acute cholecystitis. 2. Normal caliber common bile duct at 3 mm. 3. Right kidney with out hydronephrosis. Electronically authenticated by: JEAN-CLAUDE GODFREY Date: 05/11/2024 16:17 Dictated By: Jean-Claude Godfrey M.D. Signed By: 05/11/24 162 DD/ 16 TD/TT: Manager Track: HGB A1C (GLYCO-HGB) Reviewed date:02/11/2024 09:28:10 PM Interpretation: Performing Lab:[facility] ([facility]), [facility] [address] [address] PH:[phone] Notes/Report: HEMOGLOBIN A1C 5.1 4.4-5.6 % Use with caution in patients with abnormal hemoglobin variants as ADA Guidelines Normal : less than 5.7 % Result HgbA1c affected. the half-life of red blood cells and in vivo glycation rates are Diabetes : > 6.4 % Prediabetes : 5.7 % to 6.4 % NOTE AVERAGE GLUCOSE 100 PERFORMED AT [place] [address] [place] [address] CBC AND AUTO DIFF * Reviewed date:02/11/2024 09:28:10 PM Interpretation: Performing Lab:[facility] ([facility]), [facility] [address] [address] PH:[phone] Notes/Report: WBC COUNT 7.0 4.0-11.0 X10E9/L RBC COUNT 4.05 3.80-5.20 X10E12/L HEMOGLOBIN 12.5 11.7-15.5 g/dL HEMATOCRIT 37.4 35-47 % MCV 92 80-100 fL MCH 30.9 27-34 pg MCHC 33.5 32-36 g/dL RDW 12.3 11.5-15.0 % PLATELET COUNT 215 150-450 X10E9/L MPV 11.9 7-12 fL % NEUTROPHILS 57.2 % LYMPHOCYTES 31.4 % MONOCYTES 7.4 % EOSINOPHILS 2.9 % BASOPHILS 1.1 ABSOLUTE NEUTROPHIL 4.0 1.5-6.6 X10E9/L ABSOLUTE LYMPHOCYTE 2.2 1.0-3.5 X10E9/L ABSOLUTE MONOCYTE 0.5 0-0.9 X10E9/L ABSOLUTE EOSINOPHIL 0.2 0.0-0.4 X10E9/L ABSOLUTE BASOPHIL 0.1 0.0-0.2 X10E9/L PERFORM ED AT [facility] [address] [facility],[place] [address] UA Micro, reflex to culture Reviewed date:05/11/2024 10:07:29 PM Interpretation: Performing Lab: Notes/Report: [facility] , Color Urine LT. YELLOW YELLOW Clarity Urine CLEAR CLEAR Specific [place] Urine 1.010 1.005-1.025 pH Urine 7.5 5.0-9.0 Protein Urine NEGATIVE NEG/TRACE mg/dL Glucose Urine UA NEGATIVE NEGATIVE mg/dL Bilirubin Urine NEGATIVE NEGATIVE Ketones Urine NEGATIVE NEGATIVE mg/dL Blood Urine NEGATIVE NEGATIVE Nitrite Urine NEGATIVE NEGATIVE Urobilinogen Urine 0.2 0.2-1.0 EU/dL Leukocyte Esterase Urine NEGATIVE NEGATIVE WBC Urine 0-2 NONE SEEN #/HPF RBC Urine 0-2 0-2 #/HPF Bacteria Urine TRACE NONE SEEN #/HPF Squamous Epithelial Cell Urine FEW NONE/RARE #/LPF Crystals Seen? None Seen None Seen #/HPF Cast Seen? NONE SEEN NONE SEEN #/LPF Urine Culture Indicated NO Performing Lab: see note ML - [facility] LB PROF 14(COMP METB) Reviewed date:05/11/2024 10:07:29 PM Interpretation: Performing Lab: Notes/Report: [facility] , Sodium 141 136-145 mmol/L Potassium 3.8 3.5-5.1 mmol/L Chloride 101 98-107 mmol/L Carbon Dioxide 30.9 21.0-32.0 mmol/L Anion Gap 12.9 Glucose 78 74-106 mg/dL Blood Urea Nitrogen 12.0 7.0-18.0 mg/dL Creatinine 0.92 0.55-1.02 mg/dL Estimated GFR ( Betty >60 >=60 mL/min/1.73m 2 Estimated GFR (Non- Shante >60 >=60 mL/min/1.73m 2 BUN Creatinine Ratio 13.0 Calcium 9.1 8.5-10.1 mg/dL Bilirubin Total 0.3 0.2-1.0 mg/dL Aspartate Amino Transferase 17 15-37 U/L Alanine Aminotransferase 22 14-59 U/L Alkaline Phosphatase 69 46-116 U/L Total Protein 7.9 6.4-8.2 g/dL Albumin Level 4.0 3.4-5.0 g/dL Globulin 3.9 Albumin Globulin Ratio 1.0 Performing Lab: see note ML - [facility] LB LIPASE Reviewed date:05/11/2024 10:07:29 PM Interpretation: Performing Lab: Notes/Report: [facility] , Lipase 36.0 16.0-77.0 U/L Performing Lab: see note ML - [facility] LB LACTATE or LACTIC ACID Reviewed date:05/11/2024 10:07:29 PM Interpretation: Performing Lab: Notes/Report: [facility] , Lactate/Lactic Acid 1.2 0.4-2.0 mmol/L Performing Lab: see note ML - [facility] LB CBC AUTO DIFF Reviewed date:05/11/2024 10:07:29 PM Interpretation: Performing Lab: Notes/Report: [facility] , White Blood Count 13.7 4.0-11.0 10 3/uL Red Blood Count 4.20 4.20-5.40 10 6/uL Hemoglobin 13.1 12.0-16.0 g/dL Hematocrit 39.2 36.0-48.0 % Mean Corpuscular Volume 93.3 81.0-99.0 fL Mean Corpuscular Hemoglobin 31.2 26.7-34.0 pg Mean Corpuscular HGB Conc 33.4 29.9-35.2 g/dL Red Cell Distribution Width 11.8 11.0-15.0 % Platelet Count 261 150-450 10 3/uL Mean Platelet Volume 13.5 9.5-13.5 fL Neutrophils Percent Auto 71.2 43.0-75.0 % Lymphocytes Percent Auto 19.5 20.5-60.0 % Monocytes Percent Auto 5.4 1.7-12.0 % Eosinophils Percent Auto 2.8 0.9-7.0 % Basophils Percent Auto 0.7 0.2-2.0 % Immature Granulocytes Pct Auto 0.4 0.0-0.5 % Neutrophils Absolute Auto 9.8 1.4-6.5 10 3/uL Lymphocytes Absolute Auto 2.7 1.2-3.8 10 3/uL Monocytes Absolute Auto 0.7 0.3-0.8 10 3/uL Eosinophils Absolute Auto 0.4 0.0-0.7 10 3/uL Basophils Absolute Auto 0.1 0.0-0.1 10 3/uL Immature Granulocytes Abs Auto 0.05 0.00-0.03 10 3/uL Performing Lab: see note ML - [facility] LB Reason For Referral Diagnosis 1 Ganglion cyst (M67.4 0) Referral Organization [facility] Referring Provider First Name Jax Referring Provider Last Name [facility] Referring Provider [facility] Referred Provider Beto Koo Referred Provider Specialty Orthopedic S urgery Referral Priority Routine Diagnosis 1 Colitis (K52.9) Referral Organization [facility] Referring Provider First Name Jax Referring Provider Last Name alexy [facility] Provider Les León Referred Provider Specialty General Surg moose Referral Priority Routine Diagnosis 1 Abdominal pain (R10. 9) Diagnosis 2 Colitis (K52.9) Referral Organization [facility] Referring Provider First Name Jax Referring Provider Last Name [facility] Referred Provider Les Carlton Referred Provider Specialty General Surg moose Referral Priority Routine Medications Medication SIG (Take, Route, Frequency, Duration) Notes Start Date End Date Status metroNIDAZOLE 500 MG [address] ee times a day for 10 days 09/06/2024 Active Amoxicillin-Pot Clavulanate 875-125 MG 1 tablet Orally [...] 04/12/2010 When did you stop smoking? 04/12/2019 Alcohol Screen (Audit-C) Question Answer Notes Did you have a drink contain ing alcohol in the past year? Yes How many drinks did you have on a typical day when you were drinking in the past year? 1 or 2 drinks (0 point) How often did you have a dri nk containing alcohol in the past year? Less than monthly (1 point) Points 1 Interpretation Negative AUDIT-C (Standard) Question Answer Notes Did you have a drink containing alcohol in the p ast year? No Points 0 Interpretation Negative Problems Problem Type SNOMED Code ICD Code Onset Dates Problem Status W/U Status Risk Notes Problem 326728428 Syncope and collapse (R55) Active confirmed Problem 720009033 Other pancytopen ia (D61.818) Active confirmed Problem 862317396 Mixed hyperlipidemia (E78.2) Active confirmed Problem 93695126 Palpitations (R00.2) Active confirmed Problem Abdominal pain (70366842) Abdominal pain (R10.9) Active confirmed Problem Carpal tunnel syndrome (33346077) Carpal tunnel syndrome (G56.00) Active confirmed Problem Attention deficit disorder (22487666) ADD (attention deficit disorder) (F90.0) Active confirmed Problem Migraine (50791044) Migraine (G43.909) Active confirmed Problem Pharyngitis (083446134) Pharyngitis (J02.9) Active confirmed Problem Colitis (57610302) Colitis (K52.9) Active confirmed Problem Well adult (999933558) Well adult (Z00.00) Active confirmed Problem Ganglion cyst (10663003) Ganglion cyst (M67.40) Active confirmed Problem 526947488 Postural orthostatic tachycardia syndrome [POTS] (G90.A) Active confirmed Vital Signs Temperature 98.0 degrees Fahrenheit 08/09/2024 Blood pressure diastolic 64 mm Hg 08/09/2024 Height 60 in 08/09/2024 Blood pressure systolic 108 mm Hg 08/09/2024 Weight 117 lbs 08/09/2024 BMI 22.85 kg/m2 08/09/2024 Encounters Encounter Location Date Provider Diagnosis [facility] [address] [place] [address] 01/24/2024 Jax Hoy Well adult Z00.00 ; Carpal tunnel syndrome G56.00 ; Ganglion cyst M67.40 and Abdominal wall hernia K43.9 [facility] [address] [place] [address] 02/15/2024 Jax Hoy Abdominal pain R10.9 and ADD (attention deficit disorder) F90.0 [facility] [address] [place] [address] 05/12/2024 Jax Hoy Encounter for immunotherapy Z29.8 and Colitis K52.9 [facility] [address] [place] [address] 08/09/2024 Jax Hoy Pharyngitis J02.9 [facility] [address] [place] [address] 03/23/2024 Jax Hoy [facility] [address] [place] [address] 04/13/2024 Jax Hoy Abdominal pain R10.9 [facility] [address] [place] [address] 05/11/2024 Jax Hoy [facility] [address] [place] [address] 05/15/2024 Jax Hoy Abdominal pain R10.9 and Colitis K52.9 [facility] [address] [place] [address] 09/06/2024 Jax Hoy [facility] [address] [place] [address] 02/11/2024 Margaret Gonzalez [facility] [address] [place] [address] 02/11/2024 Jax Hoy Abdominal pain R10.9 [facility] [address] [facility] [place] [address] 02/13/2024 Jax Hoy [facility] [address] [facility] [place] [address] 02/15/2024 Jax Hoy [facility] [address] [facility] [place] [address] 02/23/2024 Jax Hoy [facility] [address] [facility] [place] [address] 03/15/2024 Jax Hoy [facility] [address] [facility] [place] [address] 02/01/2024 Jax Hoy Syncope and collapse R55 [facility] [address] [facility] [place] [address] 02/03/2024 Jax Hoy Well adult Z00.00 [facility] [address] [facility] [place] [address] 02/03/2024 Jax Hoy Unspecified abdomina l hernia without obstruction or gangrene K46.9 [facility] [address] [facility] [place] [address] 02/04/2024 Jax Hoy Hernia K46.9 Assessments Encounter Date Diagnosis (ICD Code) Assessment Notes Treatment Notes Treatment Clinical Notes Section Notes 02/15/2024 Abdominal pain (ICD-10 - R10.9) 02/15/2024 ADD (attention deficit disorder) (ICD-10 - F90.0) 05/12/2024 Colitis (ICD-10 - K52.9) 05/12/2024 Encounter for immunotherapy (ICD-10 - Z29.8) 08/09/2024 Pharyngitis (ICD-10 - J02.9) 02/01/2024 Syncope and collapse (ICD-10 - R55) 02/03/2024 Well adult (ICD-10 - Z00.00) 02/03/2024 Unspecified abdominal hernia without obstruction or gangrene (ICD-10 - K46.9) 02/04/2024 Hernia (ICD-10 - K46.9) 02/11/2024 Abdominal pain (ICD-10 - R10.9) 04/13/2024 Abdominal pain (ICD-10 - R10.9) 05/15/2024 Abdominal pain (ICD-10 - R10.9) 05/15/2024 Colitis (ICD-10 - K52.9) 01/24/2024 Carpal tunnel syndrome (ICD-10 - G56.00) 01/24/2024 Well adult (ICD-10 - Z00.00) 01/24/2024 Ganglion cyst (ICD-10 - M67.40) dr Koo 01/24/2024 Abdominal wall hernia (ICD-10 - K43.9) concerned for hernia - needs ct scan for eval - having bowel and bladder issues Plan Of Treatment Pending Test Test Name Order Date CMP (COMPLETE METABOLIC PANEL) HEMOGLOBIN A1C (GLYCO) 01/24/2024 HEPATITIS B SURFACE AB (HBSAB) 4 IRON, TOTAL 01/24/2024 LIPID PANEL (CHOL/TRIG/HDL/LDL) 01/24/20 CBC WITH DIFF 01/24/2024 MMR Immunity (LC) 01/24/2024 XR Abdomen KUB 1 View 02/11/2024 Varicella-Zoster V Ab, IgG 01/24/2024 CBC W/AUTO DIFF 01/29/2023 US Abdomen - Limited 02/04/2024 US Abdomen Complete 02/03/2024 CREATININE 02/01/2024 SNR 04 URINALYSIS 07/31/2022 CT ABD and PELV W CON 02/15/2024 CT ABD and PELV W CON 01/24/2024 US PELVIS 02/03/2024 THYROID PANEL (T4/TSH/FREE T3) 4 B. PERTUSSIS AB IGA/IGG/IGM 01/24/2024 MM screening mammo BI 01/24/2024 Insurance Providers Payer Name Payer Address Payer Phone Subscriber Number Group Number Insured Name Patient Relationship to Insured Coverage Start Date Coverage End Date [employer] [place] [employer] [address] [facility] [address] [place] [phone] [id number] Pastor Hawthorne Self - patient is the insured MEDICAID [facility] [address] OFFICE OF [place], [place] [id number] Pastor Hawthorne Self - patient is the insured Medications Administered Medication Instructions Date of Administration Dosage Notes Ceftriaxone 1 gram 05/12/2024 1 g Dexamethasone, 4mg/mL 05/12/2024 12 mg Medical (General) History Medical History History ICD Code Syncope and collapse R55 Surgical History Surgery Date(Month/Year) colonoscopy 06/26/24 Upper EGD 06/26/24 Ganglion of right wrist 02/16/24 Right wrist mass excision- [place] 02/10 12/03 right CTS hysterectomy partial
--- OUTSIDE RECORDS SUMMARY | 2024-11-21 11:03 | XMS_ITS | Encounter Summary ---
Author Organization [facility] tem Address [id number] [address] [place] [address] Care Team Providers Care Music Manager Name Role Phone Braulio Pan MD Primary Care Provider [phone] Encounter Details Date Type Department Care Team (Late st Contact Info) Description 12/08/2021 Orders Only [facility] Cardiology [address] [facility] [address] [place] [id number] External, Scanning Provider Social History Tobacco Use Types Packs/Day Years [...] have Coronavirus / COVID-19? No / Unsure 12/10/2021 1:22 PM EDT documented as of this encounter Plan of Treatment Upcoming Encounters Date Type Department Care Team (Late st Contact Info) Description 01/23/2025 12:30 PM EDT Office Visit [facility], A Department of [address] [phone] Lorenza Duncan PAOwenC [address] [facility] [address] [place] [address] documented as of this encounter Procedures Procedure Name Priority Date/Time Associated Diagnosis Comments EVENT MONITOR Routine 11/21/2021 3:47 PM EDT documented in this encounter Visit Diagnoses Not on filedocumented in this encounter Additional Health Concerns Infection Onset Date Last Indicated Resolved Time COVID-19 Positive 04/09/2022 04/09/2022 04/30/2022 11:12 PM EST documented as of this encounter Care Teams Music Manager Relationship Specialty Start Date End Date Braulio Pan MD [address] [place] [address] PCP - General Family Medicine 02/11/24 documented as of this encounter
--- OUTSIDE RECORDS SUMMARY | 2024-11-21 11:03 | XMS_ITS | Clinical Summary ---
Author Organization [employer] s tem Address [id number] [address] [place] [address] Care Team Providers Care Survey Technician Name Role Phone Braulio Pan MD Primary Care Provider [phone] Allergies Active Allergy Reactions Criticality Noted Date Comments Adhesive Tape-Silicones Rash Low 01/22/2022 Sulfamethoxazole-Trimethoprim Hives 2015 Cephalexin Hives 05/17/2024 Morphine Palpitations Low 08/03/2022 Sulfa (Sulfonamide Antibiotics) Hives 02/10 Medications estrogens, conjugated, (PREMARIN) 0.625 mg tablet Take 0.9 mg by mouth in the morning. Active ondansetron ODT (ZOFRAN ODT) 4 mg disintegrating tabletIndications: Nausea Dissolve 1 tablet (4 mg total) on tongue every 8 (eight) hours as needed for nausea or vomiting. 60 tablet 2 01/20/20 23 Active COQ10, UBIQUINOL, ORAL Take by mouth. Activ e oxyCODONE-acetamin ophen (PERCOCET) 5-325 mg per tablet Take 1 tablet by mouth every 6 (six) hours as needed. 05/11/19 25 Active propranolol LA (INDERAL LA) 60 mg 24 hr capsule Take 1 capsule (60 mg total) by mouth in the morning. Active hyoscyamine (ANASPAZ,LEVSIN) 0.125 mg tablet every 4 (four) hours as needed. 02/15/20 24 Active atomoxetine (STRATTERA) 25 mg capsule Take 1 capsule (25 mg total) by mouth in the morning. Take in the morning. 03/14/20 24 Active cyanocobalamin-cob amamide 5,000-100 mcg lozenge Dissolve in the mouth daily. Active promethazine (PHENERGAN) 25 mg tablet Take 1 tablet (25 mg total) by mouth every 6 (six) hours as needed for nausea or vomiting. 15 tablet 05/17/19 25 Active phenazopyridine (PYRIDIUM) 200 mg tablet 3 (three) times a day. 03/23/20 24 Active linaCLOtide (LINZESS) 145 mcg capsuleIndications :Constipation, unspecified constipation type Take 1 capsule (145 mcg total) by mouth in the morning. 16 capsule 07/11/19 25 Active naratriptan (AMERGE) 2.5 mg tablet Take 1 tablet (2.5 mg total) by mouth. 06/29/19 25 Active nortriptyline (PAMELOR) 10 mg capsule Take 1 capsule (10 mg total) by mouth once daily at bedtime. 06/29/19 25 Active hydrocortisone (ANUSOL-HC) 2.5 % rectal creamIndications:I nternal hemorrhoid Insert 1 Application into the rectum 4 (four) times a day as needed for hemorrhoids (rectal discomfort). 30 g 5 07/21/19 25 Active linaCLOtide (LINZESS) 145 mcg capsuleIndications :Chronic constipation Take 1 capsule (145 mcg total) by mouth in the morning. 16 capsule 07/21/19 25 Active Active Problems Problem Noted Date Diagnosed Date Palpitations 08/03/2022 Hx of syncope 06/28/2022 Mixed hyperlipidemia 06/28/2022 POTS (postural orthostatic tachycardia syndrome) 02/04/2022 Encounters Date Type Department Care Team Description 10/23/2024 Travel 09/12/2024 6:34 AM EDT - 09/12/2024 11:59 PM EDT Hospital Encounter [facility] [address] [place] [address] Chiari I malformation (CMS-HCC); Intractable migraine without aura and without status migrainosus Discharge Disposition: Home 09/12/2024 Travel from Last 3 Months Immunizations Immunization Administration Dates Next Due Influenza (IM) Preservative Free 02/16/2024 Influenza, Injectable, quadrivalent (PF) 022 Family History Medical History Relation Name Comments Breast cancer Paternal Grandmother Colon cancer Neg Hx Relation Name Status Comments Father Alive Mother Alive Paternal Grandmother Social History Tobacco Use Types Packs/Day Years Used Date Smoking Tobacco: Former Smokeless Tobacco: Never Comments:9 YEAR AGO Alcohol Use Standard Drinks/Week Comments Not Currently 0 (1 standard drink = 0.6 oz pur e alcohol) Childcare Answer Date Recorded Childcare Unknown 09/21/2018 Employment Answer Date Recorded Employment Unknown 09/21/2018 Hunger Screening Answer Date Recorded Within the past 12 months we worried whether our food would run out before we got money to buy more. Never True 07/20/2024 Within the past 12 months th e food we bought just didn't last and we didn't have money to get more. Never True 07/20/2024 Purpose - Life Answer Date Recorded Purpose and direction in life Unknown Comments No Sex and Gender Information Value Date Recorded Sex Assigned at Not on file Legal Sex Female 11:45 AM EDT Gender Identity Not on file Sexual Orientation Not on file Last Filed Vital Signs Vital Sign Reading Time Taken Comments Blood Pressure 114/87 07/20/2024 7:02 AM EDT Pulse 65 06/26/2024 7:44 AM EDT Temperature 36.3 C (97.3 F) 06/26/2024 6:47 AM EDT Respiratory Rate 17 06/26/2024 7:44 AM EDT Oxygen Saturation 100% 06/26/2024 7:44 AM EDT Inhaled Oxygen Concentration - - Weight 53.8 kg (118 lb 9.6 oz) 07/20/2024 7:02 A M EDT Height 152.4 cm (5') 07/20/2024 7:02 AM EDT Body Mass Index 23.16 07/20/2024 7:02 AM EDT Plan of Treatment Upcoming Encounters Date Type Department Care Team (Late st Contact Info) Description 01/23/2025 12:30 PM EDT Office Visit [facility], A Department of [facility] [address] [facility] [address] [place] [phone] Lorenza Duncan, PA-C [address] [facility] [address] [place] [address] Health Maintenance Due Date Last Done Comments Depression Screening 2002 DTaP,Tdap and Td Vaccines (8 - Td or Tdap) 02/07/2018 02/08/2008, 03/19/2003, 11/27/1994, Additional history exists COVID-19 Vaccine (2023-2 5 season) 2023 03/14/2021 Influenza Vaccine 12/11/2024 02/16/2024, , 01/17/2021 Adult BMI Screening 07/20/2025 07/20/2024 Tobacco Screening 07/20/2025 07/20/2024 Pap Smear Discontinued 11/20/2022 Medical Devices Not on file Procedures Procedure Name Priority Date/Time Associated Diagnosis Comments MR MRA HEAD WO CONT Routine 09/12/2024 7:15 AM EDT Chiari I malformation (CMS-HCC) Intractable migraine without aura and without status migrainosus from Last 3 Months Results * MRA head without contrast (09/12/2024 7:15 AM EDT) Anatomical Region Laterality Modality Neuro, Head, Head and Neck, Angio, Neuro Covera N/A Magnetic Resonance 09/15/2024 9:24 AM EDT Narrative 09/15/2024 9:36 AM EDT HISTORY: A 33-year-old female with a history of the Chiari malformation. Intractable migraine headaches without aura. Technique: MR cerebral angiogram is performed by using 3-D [id number] technique. Maximum intensity intensity projection and 3-D images are reformatted. COMPARISON: Comparison is made with MRI examination of the brain of 06/22/2022. FINDINGS: Both internal carotid and cavernous carotid arteries are patent without evidence of significant stenosis. Both vertebral and basilar arteries are patent without evidence of significant stenosis. The anterior, middle and posterior cerebral arteries are patent without evidence of significant stenosis. There is no evidence of aneurysm or arteriovenous malformation. IMPRESSION: 1. No evidence of significant stenosis or occlusion of the large vessels. 2. No evidence of aneurysm or arteriovenous malformation. Finalized by Eliceo Flannery MD on 09/15/2024 9:36 AM Procedure Note Eliceo Flannery MD - 09/15/2024 HISTORY: A 33-year-old female with a history of the Chiari malformation.Intractable migraine headaches without aura. Technique: MR cerebral angiogram is performed by using 3-D [id number]. Maximum intensity intensity projection and 3-D images arereformatted. COMPARISON: Comparison is made with MRI examination of the brain of06/22/2022. FINDINGS: Both internal carotid and cavernous carotid arteries are patentwithout evidence of significant stenosis. Both vertebral and basilar arteries are patent without evidence ofsignificant stenosis. The anterior, middle and posterior cerebral arteries are patent withoutevidence of significant stenosis. There is no evidence of aneurysm or arteriovenous malformation. IMPRESSION: 1. No evidence of significant stenosis or occlusion of the largevessels. 2. No evidence of aneurysm or arteriovenous malformation. Finalized by Eliceo Flannery MD on 09/15/2024 9:36 AM us Not In System Ref Prov IMG MRI ORDERABLES Final Result from Last 3 Months Insurance [employer] Care Teams Survey Technician Relationship Specialty Start Date End Date Braulio Pan MD [address] [place] [address] PCP - General Family Medicine 02/11/24
--- OUTSIDE RECORDS SUMMARY | 2024-11-21 11:03 | XMS_ITS | Clinical Summary ---
Author Organization [facility] Address [address] [address] Care Team Providers Care Beef Lugger Name Role Phone Unavailable Primary Care Provider Unavailabl e Social History Tobacco Use Types Packs/Day Years Used Date Smoking Tobacco: Never Assessed [place] Safety & Environment Answer Date Rec orded Fear of Current or Ex-Partner Not on file Emotionally Abused Not on file 06/03/2023 Physically Abused Not on file 06/03/2023 Sexually Abused Not on file 06/03/2023 Physically or Sexually Abused Not on file Comments Unknown Sex and Gender Information Value Date Recorded Sex Assigned at Not on file Legal Sex Female 12:44 AM EDT Gender Identity Not on file Sexual Orientation Not on file Last Filed Vital Signs Vital Sign Reading Time Taken Comments Blood Pressure 130/76 08/14/2021 2:12 PM EDT Pulse 90 08/14/2021 2:12 PM EDT Temperature 36.6 C (97.9 F) 08/14/2021 2:12 PM EDT Respiratory Rate - - Oxygen Saturation - - Inhaled Oxygen Concentration - - Weight 53 kg (116 lb 12.8 oz) 08/14/2021 2:12 PM EDT Height 149.9 cm (4' 11 ) 08/14/2021 2:12 PM EDT Body Mass Index 23.59 08/14/2021 2:12 PM EDT Plan of Treatment Not on file
--- OUTSIDE RECORDS SUMMARY | 2024-11-21 11:03 | XMS_ITS | Encounter Summary ---
Author Organization [facility] Address [address] [place] [address] Care Team Providers Care Vehicle Glass Technician Name Role Phone Braulio Pan MD Unavailable [phone] Braulio Pan MD Primary Care Provider [phone] Braulio Pan MD Unavailable [phone] Ruddy Pack DO Unavailable [phone] Source Comments In the event this information is protected by the Federal Confidentiality of Alcohol and Drug AbusePatient Records regulations: The Federal rules restrict any use of the information to criminally investigate or prosecute any alcohol or drug abuse patient.[facility] Encounter Details Date Type Department Care Team (Late st Contact Info) Description 01/30/2022 Patient Msg Neurology [address] [place] [address] Provider, [facility] Neurology follow up Social History Tobacco Use Types [...] place to sleep or slept in a penitentiary (including now)? No 01/22/2022 Area Deprivation Index Answer Date Shaka rded National Score (1-100), lower number is lower ri sk 53 09/03/2021 State Score (1-10), lower number is lower risk N ot on file 09/03/2021 Data from: https://www.neighborhoodatlas.medicine.[facility].edu/. Last address used for calculation [address] 09/03/2021 Comments No Sex [...] suspected to have Coronavirus/COVID-19? No / Unsure 01/21/2022 10:16 PM EDT documented as of this encounter [...] Contact Info) Description 12/29/2024 8:30 AM EDT [facility] Neurology Headache [facility] [address] [place] [address] Deric Fam APRN.DISK SANDER [address] [place] [address] re-occuring migraines documented as of this encounter Visit Diagnoses Not on filedocumented in this encounter Care Teams Vehicle Glass Technician Relationship Specialty Start Date End Date Braulio Pan MD [address] [place] [address] PCP - General Family Medicine 01/22/22 Braulio Pan MD Referring Family Medicine 08/20/21 Braulio Pan MD [address] [place] [address] Referring Family Medicine 12/04/22 Ruddy Pack DO [address] [facility] [address] Primary Staff Physician Cardiology 08/17/23 documented as of this encounter
--- OUTSIDE RECORDS SUMMARY | 2024-11-21 11:03 | XMS_ITS | Encounter Summary ---
Author Organization [facility] Address [address] [place] [address] Care Team Providers Care Color Television Console Monitor Name Role Phone Braulio Pan MD Primary Care Provider [phone] Encounter Details Date Type Department Care Team ([facility] Contact Info) Description 09/17/2022 Abstract [facility] [address] [place] [address] Hari Perez DO [address] [facility] [place], [place] [address] Social History Tobacco Use Types Packs/Day Years Used Date Smoking Tobacco: Never Assessed Comments Unknown Sex and Gender Information Value Date Recorded Sex Assigned at Not on file Legal Sex Female 7:08 PM EDT Gender Identity Not on file Sexual Orientation Not on file documented as of this encounter Plan of Treatment Upcoming Encounters Date Type Department Care Team ([facility] Contact Info) Description 12/07/2024 4:00 PM EDT Office Visit [facility] [address] [place] [address] [place] [id number] Katiuska Rojas PA [address] [facility] [place], [facility] documented as of this encounter Visit Diagnoses Not on filedocumented in this encounter Care Teams Color Television Console Monitor Relationship Specialty Start Date End Date Braulio Pan MD [address] [facility] [place] [address] PCP - General Family Medicine 10/07/22 documented as of this encounter
--- OUTSIDE RECORDS SUMMARY | 2024-11-21 11:03 | XMS_ITS | Clinical Summary ---
Author Organization [facility] Address [address] [place] [address] Phone Care Team Providers Care Field Crew Chief Name Role Phone Unavailable Primary Care Provider Unavailabl e Social History Tobacco Use Types Packs/Day Years Used Date Smoking Tobacco: Never Assessed Comments Unknown Sex and Gender Information Value Date Recorded Sex Assigned at Not on file Legal Sex Female 7:03 PM EST Gender Identity Not on file Sexual Orientation Not on file Plan of Treatment Health Maintenance Due Date Last Done Comments HIV Screening 1990 Lipid Panel 1990 Yearly Adult Physical 1990 MMR Vaccines (1 of 1 - Stand ira series) 11/26/1991 Hepatitis C Screening 2008 Hepatitis B Vaccines (1 of 3 - 19+ 3-dose series) 2009 Cervical Cancer Screening 11/26/2011 HPV/Cotest 11/26/2011 Pap Smear 11/26/2011 DTaP/Tdap/Td Vaccines (1 - Tdap) 2012 HPV Vaccines (1 - 3-dose sta ndard series) 2017 COVID-19 Vaccine (1 - 2023-2 5 season) 2023 Influenza Vaccine (#1) 2024 Zoster Vaccines (1 of 2) 2040 HIB Vaccines Aged Out No longer eligi ble based on patient's age to complete this topic Hepatitis A Vaccines Aged Out No long er eligible based on patient's age to complete this topic IPV Vaccines Aged Out No longer eligi ble based on patient's age to complete this topic Meningococcal Vaccine Aged Out No clovis riya eligible based on patient's age to complete this topic Pneumococcal Vaccine: Pediat rics and At-Risk Adult Patients Aged Out No longer dalila gible based on patient's age to complete this topic Rotavirus Vaccines Aged Out No longer eligible based on patient's age to complete this topic
--- NOTE | 2024-11-21 11:43 | ECG_ITS ---
[facility] Test Date: 2024-11-21 Pat Name: PASTOR HELLER Department: Room: - Gender: Female Fur Liner: : 1990 Requested By: SIOBHAN EVANGELISTA Order Number: [id number] Reading MD: PEGGY ROBLES M.D. Measurements Intervals [place] Rate: 68 P: 61 MO: 155 QRS: 45 QRSD: 82 T: 43 QT: 372 QTc: 396 Interpretive Statements SINUS RHYTHM Normal ECG Compared to ECG 09/23/2016 14:26:32 No significant changes Electronically Signed On 11-21-2024 13:57:31 EDT by PEGGY ROBLES M.D.
== END 2024-11-21 10:56 | disposition home or self-care (01) ==
LOC: PST 10:59
PROVIDERS: PCP Family Medicine; Visit Provider Obstetrics & Gynecology
DX: Z01.810 Encounter for preprocedural cardiovascular examination (principal); N94.10 Unspecified dyspareunia; R10.2 Pelvic and perineal pain; N39.0 Urinary tract infection, site not specified
CPT/HCPCS: 93005

== ENCOUNTER 2024-12-01 06:27 | Day surgery (SDC) | payer MEDICAID, SELFPAY ==
--- OUTSIDE RECORDS SUMMARY | 2024-04-24 04:10 | XMS_ITS ---
Author Organization [facility] Address [address] [place] [address] Care Team Providers Care Hadoop Java Developer Name Role Phone Braulio Pan Primary Care Provider Beto Santacruz [facility] [phone] REASON FOR VISIT CHECK INCISION Encounters Encounter Location Date Provider Diagnosis [facility] [address] [place] [address] [place] [address] 04/24/2024 Beto Koo Plan Of Treatment No Information Progress Notes * PASTOR HELLER RDOB: 1 (34 yo F)Acc No.[id number]:04/24/2024 Progress Notes Patient: PASTOR ALLEN Provider: Lay Koo MD :1990 A ge:33 Y S ex:Female Date:04/24/2024 Address:[address] [place], [place] [id number] Pcp:Braulio Pan Subjective: * Chief Complaints: * 1 . CHECK INCISION. * Medical History: Objective: * Vitals: Assessment: Plan: * Treatment: Forms: * Images: * Electronic signature of Simone Koo MD on 12/01/2024 at 06:30 AM EDT Sign off status: Pending * Provider: Lay Koo MD Date: 0 04/24/2024 Generated for Printi ng/Fajairog/eTransmitting on: 0 12/01/2024 06:30 AM EDT
--- OUTSIDE RECORDS SUMMARY | 2024-05-15 10:49 | XMS_ITS ---
Author Organization [facility] [place] Address [address] [place] [address] Care Team Providers Care Radiation Engineer Name Role Phone Maxim Jax Primary Care Provider [phone] Reason For Referral Diagnosis 1 Abdominal pain (R10. 9) Diagnosis 2 Colitis (K52.9) Referral Organization [facility] Referring Provider First Name Jax Referring Provider Last Name Maxim [facility] Referred Provider Les Carlton Referred Provider Specialty General Surg moose Referral Priority Routine REASON FOR VISIT needs to see GI Encounters Encounter Location Date Provider Diagnosis [address] [address] 05/15/2024 Jax Pan Abdominal pain R10.9 and Colitis K52.9 Assessments Encounter Date Diagnosis (ICD Code) Assessment Notes Treatment Notes Treatment Clinical Notes Section Notes 05/15/2024 Abdominal pain (ICD-10 - R10.9) 05/15/2024 Colitis (ICD-10 - K52.9) Plan Of Treatment Referrals Referral Date Details 05/15/2024 05/15/2024, Les Carlton Progress Notes * Claudia HAWTHORNE RDOB: 1 (33 yo F)Acc No.[id number]:05/15/2024 Patient: Lay SHELTON Claudia Ryan :1990 A ge:33 Y S ex:Female Address:[address], [place] [address] Subjective: * Chief Complaints: * n eeds to see GI * Medical History: * Surgical History: * Hospitalization/Major Diagno stic Procedure: * Medications: Objective: * Vitals: * Physical Examination: Assessment: * Assessment: 1. A bdominal pain - R10.9 (Primary) 2 . C olitis - K52.9 Plan: * Treatment: 2. C olitis Referral To:Les Carlton General Surgery Reason: * Procedure Codes: * true * Date: Generated for Tomás hunter/Sandra/eTransmitting on: 0 12/01/2024 06:30 AM EDT Consultation Request Notes Referral Date Referring Provider Referred Provider Not es 05/15/2024 Jax Pan Michael
--- OUTSIDE RECORDS SUMMARY | 2024-08-09 11:15 | XMS_ITS ---
Author Organization [facility] in [place] Address [address] [place] [address] Care Team Providers Care Cad Programmer Name Role Phone Jax Pan Primary Care Provider [phone] Allergies Allergen (clinical drug ingredient) Drug/Non Drug Allergy documented on EMR Reaction Allergy Type Onset Date Status sulfamethoxazole / trimethoprim Bactrim Unknown Drug Allergy Active morphine Morphine Sulfate tachycardia Drug Allergy Active Substance with sulfonamide structure and antibacterial mechanism of action (substance) Sulfa Antibiotics Unknown Drug Allergy Active REASON FOR VISIT started 5 days ago, white spots throat, tonsils stones Medications Medication SIG (Take, Route, Frequency, Duration) Notes Start Date End Date Status Amoxicillin-Pot Clavulanate 875-125 MG 1 tablet Orally every 12 hrs for 10 days 08/09/2024 Active Premarin 1.25 MG 1 tablet Orally Once a day Active Strattera 40 MG 1 capsule in the mor juhi Orally Once a day 01/24/2024 Active Hyoscyamine Sulfate 0.125 MG 1-2 tabs SL SL every 4 hrs PRN abd pain 02/15/2024 Active Ondansetron 4 MG 1 tablet on the tong ue and allow to dissolve Orally Once a day for 30 days 01/24/2024 Active Social History Tobacco Use: Social History Observation Description Date Details (start date - stop date) Former Smoker 04/12/2010 - 04/12/2019 Tobacco Use/Smoking Question Answer Notes Patient is a former smoker When did you start smoking? 04/12/2010 When did you stop smoking? 04/12/2019 AUDIT-C (Standard) Question Answer Notes Did you have a drink containing alcohol in the p ast year? No Points 0 Interpretation Negative Problems Problem Type SNOMED Code ICD Code Onset Dates Problem Status W/U Status Risk Notes Problem Pharyngitis (144301606) Pharyngitis (J02.9) Active confirmed Vital Signs Weight 117 lbs 08/09/2024 Height 60 in 08/09/2024 Blood pressure systolic 108 mm Hg 08/10/19 25 Blood pressure diastolic 64 mm Hg 025 Temperature 98.0 degrees Fahrenheit 08/10/19 25 BMI 22.85 kg/m2 08/09/2024 Encounters Encounter Location Date Provider Diagnosis [facility] [address] [place] [address] 08/09/2024 Jax Hoy Pharyngitis J02. 9 Assessments Encounter Date Diagnosis (ICD Code) Assessment Notes Treatment Notes Treatment Clinical Notes Section Notes 08/09/2024 Pharyngitis (ICD-10 - J02.9) Plan Of Treatment Medication Medication Name Sig Start Date Stop Date Notes Amoxicillin-Pot Clavulanate 875-125 MG 1 tablet Orally every 12 hrs for 10 days 08/09/2024 Progress Notes * Claudia HAWTHORNE RDOB: 1 (33 yo F)Acc No.[id number]:08/09/2024 Progress Note Patient: Claudia ALLEN Provider: Jumana Pan ([facility])MD :1990 A ge:33 Y S ex:Female Date:08/09/2024 Address:[address] [place], [place] [address] Check In:03:15 PM ESTCheck O ut:03:42 PM EST Subjective: * Chief Complaints: * S tarted 5 days ago, white spots throat, tonsils stones * HPI: G eneral: pain in theroat -not like sore thrat -but + bad breath hx tonsillitis and tonsil stones. * Active Problem List G90.A Postural orthostatic tachycardia syndrome [POTS] Modified On:01/06/2023W/U Status:confirmed R55 Syncope and collapse Modified On:01/06/2023/U Status:confirmed E78.2 Mixed hyperlipidemia Modified On:08/18/2022 Status:confirmed R00.2 Palpitations Modified On:08/18/2022 Status:confirmed G43.909 Migraine Modified On:01/06/2023 Status:confirmed D61.818 Other pancytopenia Modified On:01/29/2023 Status:confirmed Z00.00 Well adult Modified On:01/24/2024 Status:confirmed G56.00 Carpal tunnel syndro me Modified On:01/24/2024 Status:confirmed R10.9 Abdominal pain Modified On:02/15/2024 Status:confirmed F90.0 ADD (attention defic it disorder) Modified On:02/15/2024 Status:confirmed M67.40 Ganglion cyst Modified On:02/24/2024 Status:confirmed K52.9 Colitis Modified On:05/12/2024 Status:confirmed J02.9 Pharyngitis Modified On:08/09/2024 Status:confirmed * Medical History: * Surgical History: h ysterectomy partial right CTS Right wrist mass excision- [place] 02/28/24Ganglion of right wrist 02/16/24Upper EGD 06/26/24colonoscopy 06/26/24 * Hospitalization/Major Diagno stic Procedure: N o Hospitalization History. * Family History: F ather: alive. M other: alive, colon cancer, diagnosed with Other malignant neoplasm of unspecified site, Kidney stones. B rother(s): alive. S ister(s): alive. D eddie(s): alive. P aternal Grandmother: alive. 2 brother(s) , 3 sister(s) - healthy. 1 daughter(s) - healthy. . father cirrhosis paternal GM breast cancer mother rectL Cncer. * Social History: T obacco Use: T obacco Use/Smoking P atient is a f ormer smoker W hen did you start smoking? 0 04/12/2010 W hen did you stop smoking? 0 04/12/2019 D rug/Alcohol: A MANUEL-C (Standard) D id you have a drink containing alcohol in the past year? N o P oints 0 I nterpretation N egative * Medications: T akingHyoscyamine Sulfate 0.125 MG Tablet 1-2 tabs SL SL every 4 hrs PRN abd pain Ondansetron 4 MG Tablet Disintegrating 1 tablet on the tongue and allow to dissolve Orally Once a day Premarin(Estrogens Conjugated) 1.25 MG Tablet 1 tablet Orally Once a day Strattera(Atomoxetine HCl) 40 MG Capsule 1 capsule in the morning Orally Once a day Medication List reviewed and reconciled with the patientTaking Hyoscyamine Sulfate 0.125 MG Tablet 1-2 tabs SL SL every 4 hrs PRN abd pain Taking Ondansetron 4 MG Tablet Disintegrating 1 tablet on the tongue and allow to dissolve Orally Once a day Taking Premarin(Estrogens Conjugated) 1.25 MG Tablet 1 tablet Orally Once a day Taking Strattera(Atomoxetine HCl) 40 MG Capsule 1 capsule in the morning Orally Once a day Medication List reviewed and reconciled with the patient * Allergies: S ulfa Antibiotics - Criticality HighMorphine Sulfate: tachycardia - Allergy - Criticality HighBactrimno[Allergies Verified] Objective: * Vitals: W t:117lbs, Ht: 60 in, BP:108/64mm Hg, Temp:98.0F, BMI:22.85Index, Ht-cm: 152.4 cm, Wt-k.07 kg. * Examination: A bdomen Exam:: P ost pharynx with swel;ig and mild erythma - doesnt look like stones. Assessment: * Assessment: 1. P haryngitis - J02.9 (Primary) Plan: * Treatment: * Procedure Codes: * * Sign off status: Completed Visit Status: C HK (Check Out) true * Provider: Jumana Pan ([facility])MD Date: 0 08/09/2024 Generated for Tomás hunter/Sandra/Travis on: 0 12/01/2024 06:30 AM EDT History and Physical Notes * HPI (History of Present Illness) Category Sub-Category Detail Notes Category Not es General pain in theroat -not like sore thrat -but + bad breath hx tonsillitis and tonsil stones Examination Category Sub-Category Detail Notes Category Not es Abdomen Exam: Post pharynx w ith swel;ig and mild erythma - doesnt look like stones
--- OUTSIDE RECORDS SUMMARY | 2024-09-06 04:02 | XMS_ITS ---
Author Organization The [facility] in [place] Address [address] [place] [address] Care Team Providers Care Jawbone Puller Name Role Phone Jax Pan Primary Care Provider REASON FOR VISIT BV Medications Medication SIG (Take, Route, Fr equency, Duration) Notes Start Date End Date Status metroNIDAZOLE 500 MG 1 tablet Orally Thr ee times a day for 10 days 09/06/2024 Active Encounters Encounter Location Date Provider Diagnosis [facility] [address] [place] [address] 09/06/2024 Jax Pan Plan Of Treatment Medication Medication Name Sig Start Date Stop Date Notes metroNIDAZOLE 500 MG 1 tablet Orally Thr ee times a day for 10 days 09/06/2024 Progress Notes * Claudia HAWTHORNE RDOB: 1 (33 yo F)Acc No.[id number]:09/06/2024 Patient: Lay SHELTON, Claudia Ryan :1990 A ge:33 Y S ex:Female Address:[address] [place] [address] [address], [place] [address] * Refills Start metroNIDAZOLE Tablet, 500 MG, Orally, 30, 1 tablet, Three times a day, 10 days, Refills=0 * true * Date: Generated for Printi ng/Faxing/eTransmitting on: 0 12/01/2024 06:30 AM EDT
[2024-11-21 11:31] VITALS: BP 106/75; PULSE 79; TEMP 36.4; O2SAT 100; BMI 21.5
[2024-12-01] VITALS (15 sets, daily range): BP systolic 110–129; BP diastolic 77–94; PULSE 55–89; TEMP 36.1–36.4; O2SAT 96–100
--- OUTSIDE RECORDS SUMMARY | 2024-12-01 06:29 | XMS_ITS | Encounter Summary ---
Author Organization [facility] Address [address] [place] [address] Care Team Providers Care Underwater Hunter Trapper Name Role Phone Braulio Pan MD Unavailable [phone] Braulio Pan MD Primary Care Provider [phone] Braulio Pan MD Unavailable [phone] Ruddy Pack DO Unavailable [phone] Source Comments In the event this information is protected by the Federal Confidentiality of Alcohol and Drug AbusePatient Records regulations: The Federal rules restrict any use of the information to criminally investigate or prosecute any alcohol or drug abuse patient.[facility] Encounter Details Date Type Department Care Team (Late st Contact Info) Description 03/29/2023 Patient Msg [facility] [address] [place] [address] Adrian Kohli LMT exercises from massage appointment [...] place to sleep or slept in a group home (including now)? No 01/22/2022 Area Deprivation [...] Contact Info) Description 12/29/2024 8:30 AM EDT [facility] Neurology Headache [facility] [address] [place] [address] Deric Fam APRN.TELEPHONE OPERATOR CHIEF [address] [place] [address] re-occuring migraines documented as of this encounter Visit Diagnoses Not on filedocumented in this encounter Care Teams Underwater Hunter Trapper Relationship Specialty Start Date End Date Braulio Pan MD [address] [place] [address] PCP - General Family Medicine 01/22/22 Braulio Pan MD Referring Family Medicine 08/20/21 Braulio Pan MD [address] [place] [address] Referring Family Medicine 12/04/22 Ruddy Pack DO [address] [place] [address] Primary Staff Physician Cardiology 08/17/23 documented as of this encounter
--- OUTSIDE RECORDS SUMMARY | 2024-12-01 06:29 | XMS_ITS | Encounter Summary ---
Author Organization [facility] Address [address] [place] [address] Care Team Providers Care Hospital Medicine Director Name Role Phone Braulio Pan MD Unavailable [phone] Braulio Pan MD Primary Care Provider [phone] Braulio Pan MD Unavailable [phone] Ruddy Pack DO Unavailable [phone] Source Comments In the event this information is protected by the Federal Confidentiality of Alcohol and Drug AbusePatient Records regulations: The Federal rules restrict any use of the information to criminally investigate or prosecute any alcohol or drug abuse patient.[facility] Encounter Details Date Type Department Care Team (Late st Contact Info) Description 02/10/2023 Patient Msg Pulmonology [facility] [address] [place] [address] Provider, [facility] Welcome to [facility]! Social History Tobacco Use [...] is lower risk 8 02/10/2023 Data from: https://www.neighborhoodatlas.medicine.[facility].edu/. Last address used for calculation [address] 02/10/2023 Comments No Sex and [...] Contact Info) Description 12/29/2024 8:30 AM EDT [facility] Neurology Headache [facility] [address] [place] [address] Deric Fam APRN.FOUR SLIDE MACHINE SETTER [address] [place] [address] re-occuring migraines documented as of this encounter Visit Diagnoses Not on filedocumented in this encounter Care Teams Hospital Medicine Director Relationship Specialty Start Date End Date Braulio Pan MD [address] [place] [address] PCP - General Family Medicine 01/22/22 Braulio Pan MD Referring Family Medicine 08/20/21 Braulio Pan MD [address] [place] [address] Referring Family Medicine 12/04/22 Ruddy Pack DO [address] [place] [address] Primary Staff Physician Cardiology 08/17/23 documented as of this encounter
--- OUTSIDE RECORDS SUMMARY | 2024-12-01 06:29 | XMS_ITS | Clinical Summary ---
Author Organization [facility] Address [address] [facility] [address] [place] [address] Care Team Providers Care Machine Setter Name Role Phone Unavailable Primary Care Provider [...] Answer Date Recorded PHQ-2 Score 24 05/10/2019 [facility] Occupat ional Health - Occupational Stress [...]
--- OUTSIDE RECORDS SUMMARY | 2024-12-01 06:29 | XMS_ITS | Encounter Summary ---
Author Organization [facility] Address [address] [place] [address] Care Team Providers Care Lens Coater Name Role Phone Braulio Pan MD Unavailable [phone] Braulio Pan MD Primary Care Provider +-1 Braulio Pan MD Unavailable [phone] Ruddy Pack DO Unavailable [phone] Source Comments In the event this information is protected by the Federal Confidentiality of Alcohol and Drug AbusePatient Records regulations: The Federal rules restrict any use of the information to criminally investigate or prosecute any alcohol or drug abuse patient.[facility] Encounter Details Date Type Department Care Team (Late st Contact Info) Description 03/03/2023 [place] [address] Provider, Ccf Financial Clearance Social History Tobacco [...] place to sleep or slept in a retirement (including now)? No 01/22/2022 Area Deprivation Index Answer Date Shaka rded National Score (1-100), lower number is lower ri sk 88 02/10/2023 State Score (1-10), lower number is lower risk 8 02/10/2023 Data from: https://www.neighborhoodatlas.medicine.[facility].edu/. Last address used for calculation [address] [place] [address] 02/10/2023 Comments No Sex and Gender Information [...] Contact Info) Description 12/29/2024 8:30 AM EDT [facility] Neurology Headache [facility] [address] [place] [address] Deric Fam APRN.HOTEL SUPERINTENDENT [address] [place] [address] re-occuring migraines documented as of this encounter Visit Diagnoses Not on filedocumented in this encounter Care Teams Lens Coater Relationship Specialty Start Date End Date Braulio Pan MD [address] [place] [address] PCP - General Family Medicine 01/22/22 Braulio Pan MD Referring Family Medicine 08/20/21 Braulio Pan MD [address] [place] [address] Referring Family Medicine 12/04/22 Ruddy Pack DO [address] [facility] [place] [id number] Primary Staff Physician Cardiology 08/17/23 documented as of this encounter
--- OUTSIDE RECORDS SUMMARY | 2024-12-01 06:29 | XMS_ITS | Encounter Summary ---
Author Organization [facility] Address [address] [place] [address] Care Team Providers Care Motor Teacher Name Role Phone Braulio Pan MD Unavailable [phone] Braulio Pan MD Primary Care Provider +- Braulio Pan MD Unavailable [phone] Ruddy Pack DO Unavailable [phone] Source Comments In the event this information is protected by the Federal Confidentiality of Alcohol and Drug AbusePatient Records regulations: The Federal rules restrict any use of the information to criminally investigate or prosecute any alcohol or drug abuse patient.[facility] Encounter Details Date Type Department Care Team (Late st Contact Info) Description 03/04/2024 [place] [address] Provider, Ccf A Message from the [facility] Recovery Department Social History Tobacco Use Types [...] is lower risk 3 08/17/2023 Data from: https://www.neighborhoodatlas.medicine.[facility].edu/. Last address used for calculation [address] 08/17/2023 Comments No Sex [...] Author No 01/24/2022 2:12 PM EDT Cora uRiz RN * Because of a physical, mental, [...] Contact Info) Description 12/29/2024 8:30 AM EDT [facility] Neurology Headache [facility] [address] [place] [address] Deric Fam APRN.FISH PROCESSING SUPERVISOR [address] [place] [address] re-occuring migraines documented as of this encounter Goals Goal Patient Goal Type Associated Problems Recent Progress Patient-Stated? Author Blood Pressure < 130/80 Blood Pressure 126/80( 024 11:53 AM EDT) No Daxa Ascencio, EDUARDO documented as of this encounter Visit Diagnoses Not on filedocumented in this encounter Care Teams Motor Teacher Relationship Specialty Start Date End Date Braulio Pan MD [address] [place] [address] PCP - General Family Medicine 01/22/22 Braulio Pan MD Referring Family Medicine 08/20/21 Braulio Pan MD [address] [place] [address] Referring Family Medicine 12/04/22 Ruddy Pack DO [address] [place] [address] Primary Staff Physician Cardiology 08/17/23 documented as of this encounter
--- OUTSIDE RECORDS SUMMARY | 2024-12-01 06:29 | XMS_ITS | Encounter Summary ---
Author Organization [facility] Address [address] [place] [address] Care Team Providers Care Batch Analyst Name Role Phone Braulio Pan MD Unavailable [phone] Braulio Pan MD Primary Care Provider +-5 Braulio Pan MD Unavailable [phone] Ruddy Pack DO Unavailable Source Comments In the event this information is protected by the Federal Confidentiality of Alcohol and Drug AbusePatient Records regulations: The Federal rules restrict any use of the information to criminally investigate or prosecute any alcohol or drug abuse patient.[facility] Encounter Details Date Type Department Care Team (Late st Contact Info) Description 08/02/2024 Patient Msg Neurology [address] [place] [id number] Provider, Ccf Know Your Triggers, Own Your [...] is lower risk 3 08/17/2023 Data from: https://www.neighborhoodatlas.medicine.[facility].edu/. Last address used for calculation [address] 08/17/2023 Comments [...] Contact Info) Description 12/29/2024 8:[address] [facility] Neurology Headache [facility] [address] [place] [address] Deric Fam APRN.COMMUNICATIONS OFFICER [address] [place] [address] re-occuring migraines documented as of this encounter Goals Goal Patient Goal Type Associated Problems Recent Progress Patient-Stated? Author Blood Pressure < 130/80 Blood Pressure 126/80( 024 11:53 AM EDT) No Daxa Ascencio RN documented as of this encounter Visit Diagnoses Not on filedocumented in this encounter Care Teams Batch Analyst Relationship Specialty Start Date End Date Braulio Pan MD [address] [place] [address] PCP - General Family Medicine 01/22/22 Braulio Pan MD Referring Family Medicine 08/20/21 Braulio Pan MD [address] [place] [address] Referring Family Medicine 12/04/22 Ruddy Pack DO [address] [facility] [address] Primary Staff Physician Cardiology 08/17/23 documented as of this encounter
--- OUTSIDE RECORDS SUMMARY | 2024-12-01 06:29 | XMS_ITS | Encounter Summary ---
Author Organization [facility] Address [address] [place] [address] Care Team Providers Care Quality Assurance Name Role Phone Braulio Pan MD Unavailable [phone] Braulio Pan MD Primary Care Provider +-5 Braulio Pan MD Unavailable [phone] Ruddy Pack DO Unavailable Source Comments In the event this information is protected by the Federal Confidentiality of Alcohol and Drug AbusePatient Records regulations: The Federal rules restrict any use of the information to criminally investigate or prosecute any alcohol or drug abuse patient.[facility] Encounter Details Date Type Department Care Team (Late st Contact Info) Description 04/14/2023 Patient Msg [facility] [address] [place] [address] Provider, Ccf Cancelled: Acupuncture Appointments [...] place to sleep or slept in a custodial (including now)? No 01/22/2022 Area Deprivation Index Answer Date Shaka rded National Score (1-100), lower number is lower ri sk 88 02/10/2023 State Score (1-10), lower number is lower risk 8 02/10/2023 Data from: https://www.neighborhoodatlas.medicine.[facility].edu/. Last address used for calculation [address] 02/10/2023 Comments No Sex [...] Contact Info) Description 12/29/2024 8:30 AM EDT [facility] Neurology Headache [facility] [address] [place] [address] Deric Fam APRN.STITCHING MACHINE OPERATOR [address] [place] [address] re-occuring migraines documented as of this encounter Visit Diagnoses Not on filedocumented in this encounter Care Teams Quality Assurance Relationship Specialty Start Date End Date Braulio Pan MD [address] [place] [address] PCP - General Family Medicine 01/22/22 rBaulio Pan MD Referring Family Medicine 08/20/21 Braulio Pan MD [address] [place] [address] Referring Family Medicine 12/04/22 Ruddy Pcak DO [address] [place] [address] Primary Staff Physician Cardiology 08/17/23 documented as of this encounter
--- OUTSIDE RECORDS SUMMARY | 2024-12-01 06:29 | XMS_ITS | Encounter Summary ---
Author Organization [facility] Address [address] [place] [address] Care Team Providers Care Boiler Plant Operator Name Role Phone Braulio Pan MD Unavailable [phone] Braulio Pan MD Primary Care Provider +-3 Braulio Pan MD Unavailable [phone] Ruddy Pack DO Unavailable [phone] Source Comments In the event this information is protected by the Federal Confidentiality of Alcohol and Drug AbusePatient Records regulations: The Federal rules restrict any use of the information to criminally investigate or prosecute any alcohol or drug abuse patient.[facility] Encounter Details Date Type Department Care Team (Late st Contact Info) Description 03/10/2023 Patient Msg Pulmonology [facility] [address] [place] [address] Provider, Ccf A Message from the [facility] Recovery Department Social History Tobacco [...] is lower risk 8 02/10/2023 Data from: https://www.neighborhoodatlas.medicine.[facility].edu/. Last address used for calculation [address] [...] Contact Info) Description 12/29/2024 8:30 AM EDT [facility] Neurology Headache [facility] [address] [place] [address] Deric Fam APRN.SERVICES ADVISOR [address] [place] [address] re-occuring migraines documented as of this encounter Visit Diagnoses Not on filedocumented in this encounter Care Teams Boiler Plant Operator Relationship Specialty Start Date End Date Braulio Pan MD [address] [place] [address] PCP - General Family Medicine 01/22/22 Braulio Pan MD Referring Family Medicine 08/20/21 Braulio Pan MD [address] [place] [address] Referring Family Medicine 12/04/22 Ruddy Pack DO [address] [place] [address] Primary Staff Physician Cardiology 08/17/23 documented as of this encounter
--- OUTSIDE RECORDS SUMMARY | 2024-12-01 06:29 | XMS_ITS | Encounter Summary ---
Author Organization [facility] Address [address] [place] [address] Care Team Providers Care Supervisor Press Room Name Role Phone Braulio Pan MD Unavailable [phone] Braulio Pan MD Primary Care Provider +-5 Braulio Pan MD Unavailable [phone] Ruddy Pack DO Unavailable [phone] Source Comments In the event this information is protected by the Federal Confidentiality of Alcohol and Drug AbusePatient Records regulations: The Federal rules restrict any use of the information to criminally investigate or prosecute any alcohol or drug abuse patient.[facility] Encounter Details Date Type Department Care Team (Latest Contact Info) Description 06/15/2023 [place] [address] Provider, Ccf REMINDER: [facility] Questionnaires [...] place to sleep or slept in a long-term (including now)? No 01/22/2022 Area Deprivation Index Answer Date Shaka rded National Score (1-100), lower number is lower ri sk 88 02/10/2023 State Score (1-10), lower number is lower risk 8 02/10/2023 Data from: https://www.neighborhoodatlas.medicine.[facility].edu/. Last address used for calculation [address] [place] [address] 02/10/2023 Comments No Sex and Gender Information [...] Description 12/29/2024 8:30 AM EDT [facility] Neurology Headache [facility] [address] [place] [address] Deric Fam APRN.IMPLEMENTATION ADVISOR [address] [place] [address] re-occuring migraines documented as of this encounter Visit Diagnoses Not on filedocumented in this encounter Care Teams Supervisor Press Room Relationship Specialty Start Date End Date Braulio Pan MD [address] [place] [address] PCP - General Family Medicine 01/22/22 Braulio Pan MD Referring Family Medicine 08/20/21 Braulio Pan MD [address] [place] [address] Referring Family Medicine 12/04/22 Ruddy Pack DO [address] [place] [address] Primary Staff Physician Cardiology 08/17/23 documented as of this encounter
--- OUTSIDE RECORDS SUMMARY | 2024-12-01 06:29 | XMS_ITS | Clinical Summary ---
Author Organization [facility] Address [address] [place] [address] Care Team Providers Care Conventional Machinist Name Role Phone Braulio Pan MD Unavailable [phone] Braulio Pan MD Primary Care Provider [phone] Braulio Pan MD Unavailable [phone] Ruddy Pack DO Unavailable [phone] Allergies Active Allergy Reactions Criticality Noted Date Comments Adhesive Tape-Silicones Rash 01/22/2022 Sulfamethoxazole-Trimethopri m Hives 11/10/2019 Morphine Other: See Comments Low 08/03/2022 Tachycardia Sulfa (Sulfonamide Antibiotics) Hives 11/10/2019 Medications Cxadk-7-BCU-EPA-Fi sh Oil (FISH OIL) 1,000 mg (120 [...] Department Care Team Description 11/08/2024 Refill Neurology [facility] [address] [place] [address] Deric Fam, WILIAN.RIPENING ROOM OPERATOR Refill Request 10/03/2024 Telephone Neurology [facility] [address] [place] [address] Deric Fam, WILIAN.RIPENING ROOM OPERATOR Insurance Authorization ([employer]) 09/28/2024 1:30 PM EDT [facility] Neurology [facility] [address] [place] [address] Deric Fam, WILIAN.RIPENING ROOM OPERATOR Chiari I malformation (HCC); Intractable migraine without [...] is lower risk 5 09/28/2024 Data from: https://www.neighborhoodatlas.medicine.[facility].edu/. Last address used for calculation [address] 09/28/2024 Comments No Sex and [...] 8:30 AM EDT [facility] Neurology Headache [facility] [address] [place] [address] Deric Fam APRN.RIPENING ROOM OPERATOR [address] [place] [address] re-occuring migraines Health Maintenance Due Date Last [...] No Daxa Ascencio, RN Insurance Care Teams Conventional Machinist Relationship Specialty Start Date End Date Braulio Pan MD [address] [place] [address] PCP - General Family Medicine 01/22/22 Braulio Pan MD Referring Family Medicine 08/20/21 Braulio Pan MD [address] [place] [address] Referring Family Medicine 12/04/22 Ruddy Pack DO [address] [facility] [place] [address] Primary Staff Physician Cardiology 08/17/23
--- OUTSIDE RECORDS SUMMARY | 2024-12-01 06:29 | XMS_ITS | Encounter Summary ---
Author Organization [facility] Address [id number] [address] [place] [address] Care Team Providers Care Data Sme Name Role Phone Braulio Pan MD Primary Care Provider [phone] Encounter Details Date Type Department Care Team (Late Contact Info) Description 02/27/2022 Orders Only [facility] Family Medicine [address] [place] [id number] Hany Santillan MD [address], [place], [place] [address] Acute cough (Primary Dx) Social History Tobacco [...] Description 01/23/2025 12:30 PM EDT Office Visit [facility], A Department of [facility] [address] [address] Lorenza Duncan, PA-C [address] [facility] [address] [place] [address] documented as of this encounter Visit Diagnoses Diagnosis Acute cough- Primary documented in this encounter Additional Health Concerns Infection Onset Date Last Indicated Resolved Time COVID-19 Positive 04/09/2022 04/09/2022 04/30/2022 11:12 PM EST documented as of this encounter Care Teams Data Sme Relationship Specialty Start Date End Date Braulio Pan MD [address] [place] [address] PCP - General Family Medicine 02/11/24 documented as of this encounter
--- OUTSIDE RECORDS SUMMARY | 2024-12-01 06:29 | XMS_ITS | Encounter Summary ---
Author Organization [facility] Address [address] [place] [address] Care Team Providers Care Mash Grinder Name Role Phone Braulio Pan MD Unavailable [phone] Braulio Pan MD Primary Care Provider +-7 Braulio Pan MD Unavailable [phone] Ruddy Pack DO Unavailable [phone] Source Comments In the event this information is protected by the Federal Confidentiality of Alcohol and Drug AbusePatient Records regulations: The Federal rules restrict any use of the information to criminally investigate or prosecute any alcohol or drug abuse patient.[facility] Encounter Details Date Type Department Care Team (Latest Contact Info) Description 03/11/2024 [place] [address] Provider, Ccf REMINDER: [facility] Questionnaires [...] place to sleep or slept in a fci (including now)? No 01/22/2022 Area Deprivation Index Answer Date Shaka rded National Score (1-100), lower number is lower ri sk 52 08/17/2023 State Score (1-10), lower number is lower risk 3 08/17/2023 Data from: https://www.neighborhoodatlas.medicine.[facility].edu/. Last address used for calculation [address] [...] Contact Info) Description 12/29/2024 8:30 AM EDT [facility] Neurology Headache [facility] [address] [place] [address] Deric Fam APRN.FLOORING SALES MANAGER [address] [place] [address] re-occuring migraines documented as of this encounter Goals Goal Patient Goal Type Associated Problems Recent Progress Patient-Stated? Author Blood Pressure < 130/80 Blood Pressure 126/80( 024 11:53 AM EDT) No Daxa Ascencio RN documented as of this encounter Visit Diagnoses Not on filedocumented in this encounter Care Teams Mash Grinder Relationship Specialty Start Date End Date Braulio Pan MD [address] [place] [address] PCP - General Family Medicine 01/22/22 Braulio Pan MD Referring Family Medicine 08/20/21 Braulio Pan MD [address] [place] [address] Referring Family Medicine 12/04/22 Ruddy Pack DO [address] [place] [address] Primary Staff Physician Cardiology 08/17/23 documented as of this encounter
--- OUTSIDE RECORDS SUMMARY | 2024-12-01 06:29 | XMS_ITS | Encounter Summary ---
Author Organization [facility] Address [address] [place] [address] Care Team Providers Care Speed Winder Name Role Phone Braulio Pan MD Unavailable [phone] Braulio Pan MD Primary Care Provider +-5 Braulio Pan MD Unavailable [phone] Ruddy Pack DO Unavailable [phone] Source Comments In the event this information is protected by the Federal Confidentiality of Alcohol and Drug AbusePatient Records regulations: The Federal rules restrict any use of the information to criminally investigate or prosecute any alcohol or drug abuse patient.[facility] Encounter Details Date Type Department Care Team (Late st Contact Info) Description 02/18/2024 Patient Msg Neurology [address] [place] [address] Sweta Wang PA-C [address] [place] [address] Headache Social History Tobacco Use [...] is lower risk 3 08/17/2023 Data from: https://www.neighborhoodatlas.medicine.[facility].edu/. Last address used for calculation [address] 08/17/2023 Comments No [...] EDT [facility] Neurology Headache [facility] [address] [place] [address] Deric Fam APRN.SWING FRAME GRINDER OPERATOR [address] [place] [address] re-occuring migraines documented as of this encounter Goals Goal Patient Goal Type Associated Problems Recent Progress Patient-Stated? Author Blood Pressure < 130/80 Blood Pressure 126/80( 024 11:53 AM EDT) No Daxa Ascencio RN documented as of this encounter Visit Diagnoses Not on filedocumented in this encounter Care Teams Speed Winder Relationship Specialty Start Date End Date Braulio Pan MD [address] [place] [address] PCP - General Family Medicine 01/22/22 Braulio Pan MD Referring Family Medicine 08/20/21 Braulio Pan MD [address] [place] [address] Referring Family Medicine 12/04/22 Ruddy Pack DO [address] [facility] [place] [address] Primary Staff Physician Cardiology 08/17/23 documented as of this encounter
--- OUTSIDE RECORDS SUMMARY | 2024-12-01 06:29 | XMS_ITS | Encounter Summary ---
Author Organization [facility] Address [facility][id number] [address] [place] [address] Care Team Providers Care Amortization Clerk Name Role Phone Braulio Pan MD Primary Care Provider [phone] Reason for Visit * Reason Onset Date Comments wt loss 03/30/2022 Encounter Details Date Type Department Care Team (Late st Contact Info) Description 03/30/2022 Telephone [facility] Cardiology [address] [facility] [address] [place] [address] Anabel Chapman, EDUARDO wt loss Social History [...] Description 01/23/2025 12:30 PM EDT Office Visit [facility], A Department of [address] [address] Lorenza Duncan, PAOwenC [address] [facility] [address] [place] [address] documented as of this encounter Visit Diagnoses Not on filedocumented in this encounter Additional Health Concerns Infection Onset Date Last Indicated Resolved Time COVID-19 Positive 04/09/2022 04/09/2022 04/30/2022 11:12 PM EST documented as of this encounter Care Teams Amortization Clerk Relationship Specialty Start Date End Date Braulio Pan MD [address] [place] [address] PCP - General Family Medicine 02/11/24 documented as of this encounter
--- OUTSIDE RECORDS SUMMARY | 2024-12-01 06:29 | XMS_ITS | Encounter Summary ---
[facility] Address [id number] [address] [place] [address] Care Team Providers Care Senior Hr Generalist Name Role Phone Braulio Pan MD Primary Care Provider [phone] Reason for Visit * Reason Onset Date Comments Rapid Heart Rate 09/22/2022 Encounter Details Date Type Department Care Team (Late st Contact Info) Description 09/22/2022 Telephone [facility] Cardiology [address] [facility] [address] [place] [address] Anabel Chapman RN Rapid Heart Rate Social [...] Upcoming Encounters Date Type Department Care Team ([facility] st Contact Info) Description 01/23/2025 12:30 PM EDT Office Visit [facility], A Department of [address] [address] Lorenza Duncan, PA-C [address] [place] [address] documented as of this encounter Visit Diagnoses Not on filedocumented in this encounter Care Teams Senior Hr Generalist Relationship Specialty Start Date End Date Braulio Pan MD [address] [place] [address] PCP - General Family Medicine 02/11/24 documented as of this encounter
--- OUTSIDE RECORDS SUMMARY | 2024-12-01 06:29 | XMS_ITS | Encounter Summary ---
Author Organization [facility] tem Address [id number] [address] [place] [address] Care Team Providers Care Premium Representative Name Role Phone Braulio Pan MD Primary Care Provider [phone] Encounter Details Date Type Department Care Team (Late st Contact Info) Description 10/16/2022 Orders Only [facility] Family Medicine [address] [place] [phone] Hany Santillan MD [address] [place], [place] [id number] Allergic angioedema, initial encounter Social History Tobacco [...] Description 01/23/2025 12:30 PM EDT Office Visit [facility] Department of [address] [phone] SchLorenza doll PA-C [address] [facility] [address] [place] [address] documented as of this encounter Visit Diagnoses Diagnosis Allergic angioedema, initial encounter documented in this encounter Care Teams Premium Representative Relationship Specialty Start Date End Date Braulio Pan MD [address] [place] [address] PCP - General Family Medicine 02/11/24 documented as of this encounter
--- OUTSIDE RECORDS SUMMARY | 2024-12-01 06:29 | XMS_ITS | Encounter Summary ---
Author Organization [facility] Address [address] [place] [address] Care Team Providers Care Dog Breeder Name Role Phone Braulio Pan MD Unavailable [phone] Braulio Pan MD Primary Care Provider +- Braulio Pan MD Unavailable [phone] Ruddy Pack DO Unavailable [phone] Source Comments In the event this information is protected by the Federal Confidentiality of Alcohol and Drug AbusePatient Records regulations: The Federal rules restrict any use of the information to criminally investigate or prosecute any alcohol or drug abuse patient.[facility] Encounter Details Date Type Department Care Team (Late st Contact Info) Description 06/08/2023 [place] [address] Provider, Ccf A Message from the [facility] Recovery Department Social History Tobacco [...] place to sleep or slept in a care home (including now)? No 01/22/2022 Area Deprivation Index Answer Date Shaka rded National Score (1-100), lower number is lower ri sk 88 02/10/2023 State Score (1-10), lower number is lower risk 8 02/10/2023 Data from: https://www.neighborhoodatlas.medicine.[facility].edu/. Last address used for calculation [address] [place] [address] 02/10/2023 Comments No Sex and Gender Information [...] Description 12/29/2024 8:30 AM EDT [facility] Neurology Headache [facility] [address] [place] [address] Deric Fam APRN.[facility] [address] [place] [address] re-occuring migraines documented as of this encounter Visit Diagnoses Not on filedocumented in this encounter Care Teams Dog Breeder Relationship Specialty Start Date End Date Braulio Pan MD [address] [place] [address] PCP - General Family Medicine 01/22/22 Braulio Pan MD Referring Family Medicine 08/20/21 Braulio Pan MD [address] [place] [address] Referring Family Medicine 12/04/22 Ruddy Pack DO [address] [place] [address] Primary Staff Physician Cardiology 08/17/23 documented as of this encounter
--- OUTSIDE RECORDS SUMMARY | 2024-12-01 06:29 | XMS_ITS | Encounter Summary ---
Author Organization [facility] Address [address] [place] [address] Care Team Providers Care Psychiatry Adult Physician Name Role Phone Braulio Pan MD Unavailable [phone] Braulio Pan MD Primary Care Provider [phone] Braulio Pan MD Unavailable [phone] Ruddy Pack DO Unavailable [phone] Source Comments In the event this information is protected by the Federal Confidentiality of Alcohol and Drug AbusePatient Records regulations: The Federal rules restrict any use of the information to criminally investigate or prosecute any alcohol or drug abuse patient.[facility] Encounter Details Date Type Department Care Team (Late st Contact Info) Description 02/11/2023 Patient Msg Cardiology [address] [place] [address] Sujit Dougherty MD [address] [place] [address] labs and echo Social History [...] is lower risk 8 02/10/2023 Data from: https://www.neighborhoodatlas.medicine.[facility].edu/. Last address used for calculation [address] 02/10/2023 Comments No Sex and [...] Contact Info) Description 12/29/2024 8:30 AM EDT [facility] Neurology Headache [facility] [address] [place] [address] Deric Fam APRN.[employer] PAVER OPERATOR [address] [place] [address] re-occuring migraines documented as of this encounter Visit Diagnoses Not on filedocumented in this encounter Care Teams Psychiatry Adult Physician Relationship Specialty Start Date End Date Braulio Pan MD [address] [place] [address] PCP - General Family Medicine 01/22/22 Braulio Pan MD Referring Family Medicine 08/20/21 Braulio Pan MD [address] [place] [address] Referring Family Medicine 12/04/22 Ruddy Pack DO [address] [place] [address] Primary Staff Physician Cardiology 08/17/23 documented as of this encounter
--- OUTSIDE RECORDS SUMMARY | 2024-12-01 06:29 | XMS_ITS | Encounter Summary ---
Author Organization [facility] Address [address] [place] [address] Care Team Providers Care Edge Cutter Name Role Phone Braulio Pan MD Unavailable [phone] Braulio Pan MD Primary Care Provider [phone] Braulio Pan MD Unavailable [phone] Ruddy Pack DO Unavailable [phone] Source Comments In the event this information is protected by the Federal Confidentiality of Alcohol and Drug AbusePatient Records regulations: The Federal rules restrict any use of the information to criminally investigate or prosecute any alcohol or drug abuse patient.[facility] Encounter Details Date Type Department Care Team (Latest Contact Info) Description 03/04/2024 [place] [address] Provider, Ccf REMINDER: [facility] Questionnaires [...] is lower risk 3 08/17/2023 Data from: https://www.neighborhoodatlas.medicine.[facility].edu/. Last address used for calculation [address] [address] 08/17/2023 Comments No Sex [...] Description 12/29/2024 8:30 AM EDT [facility] Neurology Headache [facility] [address] [place] [address] Deric Fam APRN.BOAT FINISHER [address] [place] [address] re-occuring migraines documented as of this encounter Goals Goal Patient Goal Type Associated Problems Recent Progress Patient-Stated? Author Blood Pressure < 130/80 Blood Pressure 126/80( 024 11:53 AM EDT) No Daxa Ascencio RN documented as of this encounter Visit Diagnoses Not on filedocumented in this encounter Care Teams Edge Cutter Relationship Specialty Start Date End Date Braulio Pan MD [address] [place] [address] PCP - General Family Medicine 01/22/22 Braulio Pan MD Referring Family Medicine 08/20/21 Braulio Pan MD [address] [place] [address] Referring Family Medicine 12/04/22 Ruddy Pack DO [address] [place] [address] Primary Staff Physician Cardiology 08/17/23 documented as of this encounter
--- OUTSIDE RECORDS SUMMARY | 2024-12-01 06:29 | XMS_ITS | Encounter Summary ---
Author Organization [facility] Address [address] [place] [address] Care Team Providers Care Ornamental Metal Worker Name Role Phone Siobhan Evangelista MD Primary Care Provider [phone] Encounter Details Date Type Department Care Team (Late st Contact Info) Description 11/21/2024 Clinisync Result Encounter [facility] External Department Unsolicited Hair Perez DO [address] [facility] Richardson, [facility] Social History Tobacco Use Types Packs/Day Years [...] 12/07/2024 4:00 PM EDT Office Visit [facility] [address] [place] [phone] Katiuska Rojas PA [address] [facility] [place], [facility] documented as of this encounter Procedures Procedure Name Priority Date/Time Associated Diagnosis Comments ECG 12-LEAD 11/21/2024 9:46 AM EDT documented in this encounter Results * ECG 12-LEAD (11/21/2024 9:46 AM EDT) Anatomical Region Laterality Modality Other 11/21/2024 9:46 AM EDT Narrative 11/21/2024 1:57 PM EDT [facility] [place] [id number] Electrocardiograph Report Signed Patient: CLAUDIA HAWTHORNE MR#: [id number] : 1990 Acct:[id number] Age/Sex: 33 / F ADM Date: 11/21/24 Loc: PST Attending Dr: Hari Perez D.O. Ordering Physician: Hari Perez D.O. 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 Measurements Intervals [place] Rate: 68 P: 61 IN: 155 QRS: 45 QRSD: 82 T: 43 QT: 372 QTc: 396 Interpretive Statements SINUS RHYTHM Normal ECG Compared to ECG 09/23/2016 14:26:32 No significant changes Electronically Signed On 11-21-2024 13:57:31 EDT by PEGGY ROBLES M.D. Dictated By: PEGGY ROBLES Signed By: 11/21/24 1357 DD/ 0946 TD/TT: Campaign Associate: Procedure Note Radiology, Radiologist, MD - 11/21/2024 [facility] [place] [id number] Electrocardiograph Report Signed Patient: CLAUDIA HAWTHORNE RMR#: [id number] : 1990Acct:[id number] Age/Sex: 33 / FADM Date: 11/21/24 Loc: PST Attending Dr: Hari Perez D.O. Ordering Physician: Hari Perez D.O. 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 Measurements Intervals [place] Rate: 68 P: 61 IN: 155 QRS: 45 QRSD: 82 T: 43 QT: 372 QTc: 396 Interpretive Statements SINUS RHYTHM Normal ECG Compared to ECG 09/23/2016 14:26:32 No significant changes Electronically Signed On 11-21-2024 13:57:31 EDT by PEGGY ROBLES M.D. Dictated By: PEGGY ROBLES Signed By:11/21/24 1357 DD/ 0946 TD/TT: Campaign Associate: us Hari Perez DO [facility] Final Result documented in this encounter Visit Diagnoses Not on filedocumented in this encounter Care Teams Ornamental Metal Worker Relationship Specialty Start Date End Date Siobhan Evangelista MD [address] [place] [address] PCP - General Family Medicine 10/07/22 documented as of this encounter
--- OUTSIDE RECORDS SUMMARY | 2024-12-01 06:30 | XMS_ITS | Encounter Summary ---
Author Organization [facility] Address [address] [place] [address] Care Team Providers Care Hook Puller Name Role Phone Braulio Pan MD Unavailable [phone] Braulio Pan MD Primary Care Provider [phone] Braulio Pan MD Unavailable [phone] Ruddy Pack DO Unavailable [phone] Source Comments In the event this information is protected by the Federal Confidentiality of Alcohol and Drug AbusePatient Records regulations: The Federal rules restrict any use of the information to criminally investigate or prosecute any alcohol or drug abuse patient.[facility] Encounter Details Date Type Department Care Team (Late st Contact Info) Description 02/13/2024 Patient Msg Neurology [address] [place] [phone] Jhoana Daily MD [address] [place] [address] Appointment Request Social History Tobacco [...] risk 3 08/17/2023 Data from: https://www.neighborhoodatlas.medicine.[facility].edu/. Last address used for calculation [address] 08/17/2023 Comments No Sex [...] [facility] Neurology Headache [facility] [address] [place] [address] Deric Fam APRN.ENSEMBLE MEMBER [address] [place] [address] re-occuring migraines documented as of this encounter Goals Goal Patient Goal Type Associated Problems Recent Progress Patient-Stated? Author Blood Pressure < 130/80 Blood Pressure 126/80( 024 11:53 AM EDT) No Daxa Ascencio RN documented as of this encounter Visit Diagnoses Not on filedocumented in this encounter Care Teams Hook Puller Relationship Specialty Start Date End Date Braulio Pan MD [address] [place] [address] PCP - General Family Medicine 01/22/22 Braulio Pan MD Referring Family Medicine 08/20/21 Braulio Pan MD [address] [place] [address] Referring Family Medicine 12/04/22 Ruddy Pack DO [address] [facility] [place] [address] Primary Staff Physician Cardiology 08/17/23 documented as of this encounter
--- OUTSIDE RECORDS SUMMARY | 2024-12-01 06:30 | XMS_ITS | Patient Health Record ---
Author Organization [facility] in [place] Address [address] [place] [address] Care Team Providers Care Broach Setter Name Role Phone Jax Pan Primary Care Provider [phone] Margaret Gonzalez Unavailable [phone] Allergies Allergen (clinical drug ingredient) Drug/Non Drug Allergy documented on EMR Reaction Allergy Type Onset Date Status sulfamethoxazole / trimethoprim Bactrim Unknown Drug Allergy Active morphine Morphine Sulfate tachycardia Drug Allergy Active Substance with sulfonamide structure and antibacterial mechanism of action (substance) Sulfa Antibiotics Unknown Drug Allergy Active Results Component Value Reference Range Notes Anti HBs quantitative Reviewed date:02/11/2024 09:28:10 PM Interpretation: Performing Lab:[facility] ([facility]), [address] [place] [address], [address] [place] [address]. [address] PH:[phone] Notes/Report: Anti HBs quant. 6874.12 Vaccinated: >=12mIU/mL, Positive (Immune) Unvaccinated: <8mIU/mL, Negative (Not Immune) 8-11.99 mIU/mL: Indeterminate, (Considered Not Immune) PERFORMED AT [address], [place] [address] ECG 12 lead Reviewed date:11/21/2024 08:21:13 PM Interpretation: Performing Lab: Notes/Report: Source Facility: [place] [address] [place] [address] Electrocardiograph Report Signed Patient: PINAPASTOR Ryan MR#: [id number] : 1990 Acct:[id number] Age/Sex: 33 / F ADM Date: 11/21/24 Loc: PST Attending Dr: Hari Perez D.O. Ordering Physician: Hari Perez D.O. 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 Measurements Intervals Oxford Rate: 68 P: 61 MA: 155 QRS: 45 QRSD: 82 T: 43 QT: 372 QTc: 396 Interpretive Statements SINUS RHYTHM Normal ECG Compared to ECG 09/23/2016 14:26:32 No significant changes Electronically Signed On 11-21-2024 13:57:31 EDT by PEGGY ROBLES M.D. Dictated By: PEGGY ROBLES Signed By: 11/21/24 1357 DD/ 0946 TD/TT: Asbestos Cement Sheet Supervisor: [place] [address] Electrocardiograph Report Signed Patient: JERSON HELLER MR#: [id number] : 1990 Acct:[id number] Age/Sex: 33 / F ADM Date: 11/21/24 Loc: PST Attending Dr: Hari Perez D.O. Ordering Physician: Hari Perez D.O. 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 Measurements Intervals Oxford Rate: 68 P: 61 MA: 155 QRS: 45 QRSD: 82 T: 43 QT: 372 QTc: 396 Interpretive Statements SINUS RHYTHM Normal ECG Compared to ECG 09/10 14:26:32 No significant changes Electronically Peg d On 11-21-2024 13:57:31 EDT by PEGGY ROBLES M.D. Dictated By: PEGGY ROBLES Signed By: 11/21/24 1277 DD/ 0946 TD/TT: Asbestos Cement Sheet Supervisor: B. PERTUSSIS, IGA, IGG, IGM Reviewed date:02/16/2024 09:21:22 PM Interpretation: Performing Lab:[address] [address] PH:[phone] Notes/Report: B.PERTUSSIS,IGA/FHA EQUIVOCAL B.PERTUSSIS,IGA/PT Negative B.PERTUSSIS IGA INT SEE NOTE Negative NOTE Questionable presence of IgA antibodies to Bordetella FHA. Recommend retesting in 2-4 weeks. PT (Pertussis toxin) is specific to Bordetella pertussis. FHA (Filamentous hemagglutinin) is an antigen common to multiple species of Bordetella. PT (Pertussis toxin) is specific to Bordetella pertussis. FHA (Filamentous hemagglutinin) is an antigen common to multiple species of Bordetella. B. pertussis, IgG/FHA Positive B. pertussis, IgG/PT EQUIVOCAL B. pertussis, IgG/PT100 Negative B. pertussis, IgG Interp SEE NOTE Negative NOTE IgG antibodies against Bordetella FHA detected, which may suggest past vaccination to Bordetella pertussis and/or infection with Bordetella species. Questionable presence of IgG antibodies against Bordetella pertussis PT detected. Recommend retesting in 2-4 weeks. PT100 (Pertussis toxin 100 IU/ml) detects high concentrations of pertussis toxin-specific antibodies associated with recent infections/vaccinat ions. PT (Pertussis toxin) is specific to Bordetella pertussis. FHA (Filamentous hemagglutinin) is an antigen common to multiple species of Bordetella. B. pertussis, IgM/FHA Negative B. pertussis, IgM/PT Negative B. pertussis, IgM Interp Negative Negative NOTE No IgM antibodies against Bordetella FHA and PT detected. INTREPRETIVE INFORMATION: B. pertussis Antibody, IgM Immunoblot This test was developed and its performance characteristics determined by [facility]. It has not been cleared or approved by the US Food and Drug Administration. This test was performed in a CLIA certified laboratory and is intended for clinical purposes. Performed By: [facility] [address] [place] [address] [employer] Senior Officer: Shawn Lacey MD, PhD CLIA Number: [id number] PERFORMED AT [address] [place] [address] LIPID PANEL Reviewed date:02/11/2024 09:28:10 PM Interpretation: Performing Lab:[facility] ([facility]), [address] [place], [place] [address]E., [address] [address] PH:[phone] Notes/Report: CHOLESTEROL 203 150-200 mg/dL TRIGLYCERIDE 140 27-150 mg/dL HDL CHOLESTEROL 50 >39 mg/dL HDL <40 mg/dL - High Risk HDL > or = 40mg/dL- Desirable HDL >60 mg/dL - Negative Risk ------- VERY LOW LIPOPROTEIN 28 0-30 mg/dL LDL (CALC) 125 <130 mg/dL LDL <100 mg/dL - Desirable LDL >160 mg/dL - High Risk ------- CHOLESTEROL:HDL 4.1 1.0-5.0 PERFORMED AT [address] [address] THYROID PROFILE Reviewed date:02/11/2024 09:28:10 PM Interpretation: Performing Lab:[facility] ([facility]), [address] [place], [place] [address]., [address] [address] PH:[phone] Notes/Report: TSH 1.24 0.49-4.67 uIU/mL FREE T4 1.00 0.61-1.60 ng/dL PERFORMED AT [address] [place] [address] HGB A1C (GLYCO-HGB) Reviewed date:02/11/2024 09:28:10 PM Interpretation: Performing Lab:[facility] ([facility]), [address] [place] [address]., [address] [address] PH:[phone] Notes/Report: HEMOGLOBIN A1C 5.1 4.4-5.6 % NOTE ADA Guidelines Result HgbA1c Normal : less than 5.7 % Prediabetes : 5.7 % to 6.4 % Diabetes : > 6.4 % Use with caution in patients with abnormal hemoglobin variants as the half-life of red blood cells and in vivo glycation rates are affected. AVERAGE GLUCOSE [address] PERFORMED AT [address] [address] VARICELLA ZOSTER IGG Reviewed date:02/11/2024 09:28:10 PM Interpretation: Performing Lab:[facility] ([facility]), [address] [place] [address]., [address] [address] PH:[phone] Notes/Report: VARICELLA IgG 1.6 <0.9 AI Interpret ation-------- <0.9 Negative 0.9 - 1.0 Equivocal >1.0 Positive PERFORMED AT [address] [address] IRON Reviewed date:02/11/2024 09:28:10 PM Interpretation: Performing Lab:[facility] ([facility]), [address] [place] [address]., [address] [address] PH:[phone] Notes/Report: IRON 87 50-170 ug/dL PERFORMED AT [address] [address] FREE T3 Reviewed date:02/11/2024 09:28:10 PM Interpretation: Performing Lab:[facility] ([facility]), [address] [place] [address], [address] [place] [address]. [address] PH:[phone] Notes/Report: FREE T3 3.00 2.50-3.90 pg/mL PERFORMED AT [address] [place] [address] COMPREHENSIVE METABOLIC PANE L Reviewed date:02/11/2024 09:28:10 PM Interpretation: Performing Lab:[facility] ([facility]), [address] [place] [address], [address] [address] PH:[phone] Notes/Report: SODIUM 140 134-146 mmol/L POTASSIUM 4.0 3.5-5.0 mmol/L CHLORIDE 103 98-109 mmol/L CARBON DIOXIDE 27 22-32 mmol/L ANION GAP 10 5-15 mmol/L BLOOD UREA NITROGEN 9 5-23 mg/dL CREATININE 0.72 0.40-1.00 mg/dL METHOD TRACE ABLE TO IDMS STANDARD GLUCOSE 90 65-99 mg/dL CALCIUM 9.1 8.5-10.5 mg/dL TOTAL PROTEIN 7.2 6.0-8.0 g/dL ALBUMIN 4.4 3.2-5.3 g/dL ALKALINE PHOSPHATASE 47 39-130 U/L AST 17 0-41 U/L ALT 10 0-31 U/L BILIRUBIN,TOTAL 0.4 0.3-1.2 mg/dL eGFR (CKD-EPI) NON-RACE DEPENDENT >90 >59 ml/min/1.73sq.m Reported eGFR is based on the CKD-EPI 2020 equation that does not use a race coefficient. PERFORMED AT [address] [address] CBC AND AUTO DIFF * Reviewed date:02/11/2024 09:28:10 PM Interpretation: Performing Lab:[facility] ([facility]), [address] [place] [address], [address] [address] PH:[phone] Notes/Report: WBC COUNT 7.0 4.0-11.0 X10E9/L RBC [...] BASOPHIL 0.1 0.0-0.2 X10E9/L PERFORM ED AT [address] [address] RUBELLA IgG Reviewed date:02/11/2024 09:28:10 PM Interpretation: Performing Lab:[facility] ([facility]), [address] [place] [address], [address] [address] PH:[phone] Notes/Report: RUBELLA IMMUNE IgG 1.6 Interpret ation-------- <0.8 NEGATIVE-considered Not Immune 0.8-0.9 EQUIVOCAL-consider retesting with new specimen >0.9 POSITIVE-considered Immune PERFORMED AT [address] [address] RUBEOLA AB SCREEN Reviewed date:02/11/2024 09:28:10 PM Interpretation: Performing Lab:[facility] ([facility]), [address] [place] [address], [address] [address] PH:[phone] Notes/Report: RUBEOLA AB SCREEN 1.9 <0.9 AI POSITIVE: Antibody(IgG) detected. Indicates previous exposure to rubeola virus and immunity. PERFORMED AT [address] [address] MUMPS VIRUS IgG Reviewed date:02/11/2024 09:28:10 PM Interpretation: Performing Lab:[facility] ([facility]), [address] [place] [address], [address], [place]. [address] PH:[phone] Notes/Report: MUMPS VIRUS IgG 2.5 <0.9 AI Interpret ation-------- <0.9 Negative 0.9 - 1.0 Equivocal >1.0 Positive PERFORMED AT [address], [place] [address] US right upper quadrant Reviewed date:05/11/2024 10:07:29 PM Interpretation: Performing Lab: Notes/Report: Source Facility: [place] [address] Ultrasound Report Signed Patient: PASTOR HELLER MR#: [id number] : 1990 Acct:[id number] Age/Sex: 33 / F ADM Date: 05/11/24 Loc: ER Attending Dr: Ordering Physician: Lorena Boothe Date of Service: 05/11/24 Procedure(s): US right upper quadrant Accession Number(s): [id number] cc: Siobhan Pan M.D.; Lorena Boothe [place] [id number] Patient Name: PASTOR HELLER MRN: [id number] date: 1990 Sex: F Assigned Patient Location: ER Current Patient Location: ER Accession/Order Number: [id number] Exam Date: 05/11/2024 15:08 Report Date: 05/11/2024 [...] Signed By: 05/11/24 1620 DD/ 1617 TD/TT: Asbestos Cement Sheet Supervisor: [address] [address] Ultrasound Report Signed Patient: JERSON HELLER MR#: [id number] : 1990 Acct:[id number] Age/Sex: 33 / F ADM Date: 05/11/24 Loc: ER Attending Dr: Ordering Physician: Lorena Boothe Date of Service: 05/11/24 Procedure(s): US rig ht upper quadrant Accession Number(s): [id number] cc: Siobhan Pan M.D. ; Lorena Boothe [address] [address] Patient Name: PASTOR HELLER MRN: [id number] date: 1990 Sex: F Assigned Patient Loc ation: ER Current Patient Loca tion: ER Accession/Order Numb er: [id number] Exam Date: 05/11/2024 15:08 Report Date: 05/11/2024 16:17 At the request of: LORENA BOOTHE Procedure: US right upper quadrant Ultrasound abdomen r ight upper quadrant HISTORY: Abnormal CT , right [...] by overlying bowel gas. The right kidney killian sures 10.8 x 4.8 x 4.5 cm. There is no hydronephrosis in the right kidney. There is no fluid in the right upper quadrant. U S/US right upper quadrant IMPRESSION: 1. Markedly contract ed gallbladder; patient ate recently as stomach is distended with large amount of food on the recent CT 2 hours ago. No gallstones or sonographic findi ngs for acute cholecystitis. 2. Normal caliber co mmon bile duct at 3 mm. 3. Right kidney with out hydronephrosis. Electronically authenticated by: JEAN-CLAUDE GODFREY Date: 05/11/2024 16:17 Dictated By: Julissa Godfrey M.D. Signed By: 05/11/24 1620 DD/ 1617 TD/TT: Asbestos Cement Sheet Supervisor: ALLISON Nava, reflex to culture Reviewed date:05/11/2024 10:07:29 PM Interpretation: Performing Lab: Notes/Report: [facility] , Color Urine LT. YELLOW YELLOW Clarity Urine CLEAR CLEAR Specific [place] Urine 1.010 1.005-1.025 pH Urine 7.5 5.0-9.0 [...] Performing Lab: see note ML - [facility] LB CBC AUTO DIFF Reviewed date:05/11/2024 10:07:29 PM Interpretation: Performing Lab: Notes/Report: [facility] , White Blood Count 13.7 4.0-11.0 10 [...] 3/uL Performing Lab: see note ML - [facility] LB PROF 14(COMP METB) Reviewed date:05/11/2024 10:07:29 PM Interpretation: Performing Lab: Notes/Report: [facility] , Sodium 141 136-145 mmol/L Potassium 3.8 [...] 1.0 Performing Lab: see note ML - [facility] LB LIPASE Reviewed date:05/11/2024 10:07:29 PM Interpretation: Performing Lab: Notes/Report: [facility] , Lipase 36.0 16.0-77.0 U/L Performing Lab: see note ML - [facility] LB LACTATE or LACTIC ACID Reviewed date:05/11/2024 10:07:29 PM Interpretation: Performing Lab: Notes/Report: [facility] , Lactate/Lactic Acid 1.2 0.4-2.0 mmol/L Performing Lab: see note ML - [facility] LB Reason For Referral Diagnosis 1 Ganglion cyst (M67.4 0) Referral Organization [facility] ([place], [place]) Referring Provider First Name Jax Referring Provider Last Name Maxim Referring Provider [facility] rocky Referred Provider Beto Koo Referred Provider Specialty Orthopedic S urgery Referral Priority Routine Diagnosis 1 Colitis (K52.9) Referral Organization [facility] ([place], [place]) Referring Provider First Name Jax Referring Provider Last Name Maxim Referring Provider [facility] rocky Referred Provider Les León Referred Provider Specialty General Surg moose Referral Priority Routine Diagnosis 1 Abdominal pain (R10. 9) Diagnosis 2 Colitis (K52.9) Referral Organization [facility] ([place], [place]) Referring Provider First Name Jax Referring Provider Last Name Maxim Referring Provider Speciality [facility] rocky Referred Provider Les Carlton Referred Provider [...] Problem Status W/U Status Risk Notes Problem 525303568 Syncope and collapse (R55) Active confirmed Problem 080248911 Other pancytopen ia (D61.818) Active confirmed Problem 718716031 Mixed hyperlipidemia (E78.2) Active confirmed Problem 25726288 Palpitations (R00.2) Active confirmed Problem Abdominal pain (23400290) Abdominal pain (R10.9) Active confirmed Problem Carpal tunnel syndrome (52448351) Carpal tunnel syndrome (G56.00) Active confirmed Problem Attention deficit disorder (15239206) ADD (attention deficit disorder) (F90.0) Active confirmed Problem Migraine (47219520) Migraine (G43.909) Active confirmed Problem Pharyngitis (529920597) Pharyngitis (J02.9) Active confirmed Problem Colitis (90899501) Colitis (K52.9) Active confirmed Problem Well adult (809574060) Well adult (Z00.00) Active confirmed Problem Ganglion cyst (43515421) Ganglion cyst (M67.40) Active confirmed Problem 734032635 Postural orthostatic tachycardia syndrome [POTS] (G90.A) Active confirmed Vital Signs Temperature 98.0 degrees Fahrenheit 08/09/2024 Blood pressure diastolic 64 mm Hg 08/09/2024 Height 60 in 08/09/2024 Blood pressure systolic 108 mm Hg 08/09/2024 Weight 117 lbs 08/09/2024 BMI 22.85 kg/m2 08/09/2024 Encounters Encounter Location Date Provider Diagnosis [facility] [address] [place] [address] 03/23/2024 Jax Mccartyy [facility] [address] [place] [address] 04/13/2024 Jax Hoy Abdominal pain R10.9 [facility] [address] [place] [address] 05/11/2024 Jax [facility] [address] [place] [address] 05/15/2024 Jax Hoy Abdominal pain R10.9 and Colitis K52.9 [facility] [address] [place] [address] 09/06/2024 Jax [facility] [address] [place] [address] 02/11/2024 Margaret Gonzalez [facility] [address] [place] [address] 02/11/2024 Jax Hoy Abdominal pain R10.9 [facility] [address] [place] [facility] [address] 02/13/2024 Jax Hoy [facility] [address] [place] [facility] [address] 02/15/2024 Jax Hoy [facility] [address] [place] [facility] [address] 02/23/2024 Jax Hoy [facility] [address] [place] [facility] [address] 03/15/2024 Jax Hoy [facility] [address] [place] [address] 02/01/2024 Jax Hoy Syncope and collapse R55 [facility] [address] [facility] [place] [address] 02/03/2024 Jax Hoy Well adult Z00.00 [place] [address] [place] [address] 02/03/2024 Jax Hoy Unspecified abdomina l hernia without obstruction or gangrene K46.9 [place] [address] [facility] [place] [address] 02/04/2024 Jax Hoy Hernia K46.9 [facility] [address] [facility] [place] [address] 05/12/2024 Jax Hoy Encounter for immunotherapy Z29.8 and Colitis K52.[address] [address] 08/09/2024 Jax Hoy Pharyngitis J02.[address] [place] [address] 01/24/2024 Jax Hoy Well adult Z00.00 ; Carpal tunnel syndrome G56.00 ; Ganglion cyst M67.40 and Abdominal wall hernia K43.9 [facility] [address] [place] [address], [place] [address] 02/15/2024 Jax Hoy Abdominal pain R10.9 and ADD (attention deficit disorder) F90.0 Assessments Encounter Date Diagnosis (ICD Code) Assessment Notes Treatment Notes Treatment Clinical Notes Section Notes 02/15/2024 Abdominal pain (ICD-10 - R10.9) 02/15/2024 ADD (attention deficit disorder) (ICD-10 - F90.0) 05/12/2024 Encounter for immunotherapy (ICD-10 - Z29.8) 05/12/2024 Colitis (ICD-10 - K52.9) 08/09/2024 Pharyngitis (ICD-10 - J02.9) 02/01/2024 Syncope and collapse (ICD-10 - R55) 02/03/2024 Well adult (ICD-10 - Z00.00) 02/03/2024 Unspecified abdominal hernia without obstruction or gangrene (ICD-10 - K46.9) 02/04/2024 Hernia (ICD-10 - K46.9) 02/11/2024 Abdominal pain (ICD-10 - R10.9) 04/13/2024 Abdominal pain (ICD-10 - R10.9) 05/15/2024 Abdominal pain (ICD-10 - R10.9) 05/15/2024 Colitis (ICD-10 - K52.9) 01/24/2024 Well adult (ICD-10 - Z00.00) 01/24/2024 Carpal tunnel syndrome (ICD-10 - G56.00) 01/24/2024 Ganglion cyst (ICD-10 - M67.40) dr Koo 01/24/2024 Abdominal wall hernia (ICD-10 - K43.9) concerned for hernia - needs ct scan for eval - having bowel and bladder issues Plan Of Treatment Pending Test Test Name Order Date CMP (COMPLETE METABOLIC PANEL) 4 HEMOGLOBIN A1C (GLYCO) 01/24/2024 HEPATITIS B SURFACE [...] US PELVIS 02/03/2024 THYROID PANEL (T4/TSH/FREE T3) B. PERTUSSIS AB IGA/IGG/IGM 01/24/2024 MM screening mammo BI 01/24/2024 Insurance Providers Payer Name Payer Address Payer Phone Subscriber Number Group Number Insured Name Patient Relationship to Insured Coverage Start Date Coverage End Date [employer] [place] [employer] [address] [place] [address] [id number] Pastor Heller Self - patient is the insured [place] ONLY [address] OFFICE [place], [place] [id number] Pastor Heller Self - patient is the insured Medications Administered Medication Instructions Date of Administration Dosage Notes Ceftriaxone 1 gram 05/12/2024 1 g Dexamethasone, 4mg/mL 05/12/2024 12 mg Medical (General) History Medical History History ICD Code Syncope and collapse R55 Surgical History Surgery Date(Month/Year) colonoscopy 06/26/24 Upper EGD 06/26/24 Ganglion of right wrist 02[facility]16[facility] right C[facility] hysterectomy partial
--- OUTSIDE RECORDS SUMMARY | 2024-12-01 06:30 | XMS_ITS | Encounter Summary ---
Author Organization [facility] Address [address] [place] [address] Care Team Providers Care Television Camera Operator Name Role Phone Braulio Pan MD Unavailable [phone] Braulio Pan MD Primary Care Provider +-[phone] Braulio Pan MD Unavailable [phone] Ruddy Pack DO Unavailable [phone] Source Comments In the event this information is protected by the Federal Confidentiality of Alcohol and Drug AbusePatient Records regulations: The Federal rules restrict any use of the information to criminally investigate or prosecute any alcohol or drug abuse patient.[facility] Encounter Details Date Type Department Care Team (Latest Contact Info) Description 09/13/2023 [place] [address] Provider, [facility] REMINDER: [facility] Questionnaires [...] is lower risk 3 08/17/2023 Data from: https://www.neighborhoodatlas.medicine.[facility].edu/. Last address used for calculation [address] 08/17/2023 Comments No [...] Description 12/29/2024 8:30 AM EDT [facility] Neurology Headache [facility] [address] [place] [address] Deric Fam APRN.MEMORIAL ADVISER [address] [place] [address] re-occuring migraines documented as of this encounter Goals Goal Patient Goal Type Associated Problems Recent Progress Patient-Stated? Author Blood Pressure < 130/80 Blood Pressure 126/80( 024 11:53 AM EDT) No Daxa Ascencio RN documented as of this encounter Visit Diagnoses Not on filedocumented in this encounter Care Teams Television Camera Operator Relationship Specialty Start Date End Date Braulio Pan MD [address] [place] [address] PCP - General Family Medicine 01/22/22 Braulio Pan MD Referring Family Medicine 08/20/21 Braulio Pan MD [address] [place] [address] Referring Family Medicine 12/04/22 Ruddy Pack DO [address] [place] [address] Primary Staff Physician Cardiology 08/17/23 documented as of this encounter
--- OUTSIDE RECORDS SUMMARY | 2024-12-01 06:30 | XMS_ITS | Clinical Summary ---
Author Organization [facility] Address [address] [place] [address] Care Team Providers Care Capper Machine Operator Name Role Phone Siobhan Evangelista MD Primary Care Provider [phone] Allergies Active Allergy Reactions Criticality Noted Date [...] 30 capsule 11 5 10/04/19 26 Active cephalexin (Keflex) 500 MG capsuleIndicat ions:Dyspareun ia in female TAKE 1 CAPSULE (500 MG) BY MOUTH IN THE MORNING AND 1 CAPSULE (500 MG) BEFORE BEDTIME. 60 capsule 3 5 03/23/20 25 Active cephalexin (Keflex) 500 MG capsuleIndicat ions:Dyspareun ia in female Take 1 capsule (500 mg) by mouth in the morning and 1 capsule (500 mg) before bedtime. 60 capsule 11/24/19 25 Discontinued Active Problems Problem Noted Date Diagnosed Date Calculus of kidney 10/05/2022 Carpal tunnel syndrome of right wrist 10/05/2022 Dyspareunia in female 10/05/2022 Other abnormal and inconclus maria findings on diagnostic imaging of breast 10/05/2022 Encounters Date Type Department Care Team Description 11/21/2024 Clinisync Result Encounter [facility] External Department Unsolicited Hari Perez, 11/19/2024 Refill [facility] Debra ALBARRANN [address] [place] [address] Hari Perez, Dyspareunia in female 11/01/2024 11:10 AM EDT Consult [facility] Debra GALICIA [address] [place] [address] Hari Perez DO Pre-op examination; Pelvic pain; Dyspareunia in female; Recurrent UTI 11/01/2024 Travel 10/05/2024 Telephone [facility] Debra ALBARRANN [address] [place] [address] Ashley Ross MA 10/05/2024 Telephone [facility] Debra OBGYN [address] [place] [address] Ashley Ross [place] 10/03/2024 9:50 AM EDT Office Visit [facility] Debra ADAMEGYN [address] [place] [address] Hari Perez DO Dyspareunia in female 10/03/2024 External Result Encounter NOMS External Department Unsolicited Hari Perez, 10/03/2024 Bamboo flowsheet [facility] Debra OBGYN [address] [place] [address] Hari Perez, 10/03/2024 Travel from Last 3 Months Family [...] 4:00 PM EDT Office Visit [facility] Debra OBULISSESN [address] [facility] [place] [address] Katiuska Rojas PA [address] [facility] [place] [address] Health Maintenance Due Date Last Done Comments Influenza Vaccine (#1) 2024 02/16/2024, 2021, 01/17/2021 Pap Smear 11/20/2025 11/20/2022, 07/14/2018 Cervical Cancer Screening 11/21/2027 HPV/Cotest 11/21/2027 11/20/2022 Procedures Procedure Name Priority Date/Time Associated Diagnosis Comments ECG 12-LEAD 11/21/2024 9:46 AM EDT RECURRENT VAGINITIS (HTRX) Routine 10/03/2024 12:34 PM EDT POCT URINALYSIS DIPSTICK Routine 10/03/2024 10:39 AM EDT Dyspareunia in female THINPREP PAP AND HPV MRNA E6/E7 W/RFL HPV 16,18/45 Routine 11/20/2022 11:33 AM EDT Well woman exam with routine gynecological exam PAP SMEAR Routine 11/20/2022 12:00 AM EDT from Last 3 Months or Most Recently Relevant to Health Maintenance Results * ECG 12-LEAD (11/21/2024 9:46 AM EDT) Anatomical Region Laterality Modality Other 11/21/2024 9:46 AM EDT Narrative 11/21/2024 1:57 [place] [address] Electrocardiograph Report Signed Patient: PASTOR HAWTHORNE MR#: [id number] : 1990 Acct:[id number] Age/Sex: 33 / F ADM Date: 11/21/24 Loc: PST Attending Dr: Hari Perez D.O. Ordering Physician: Hari Perez D.O. Date of Service: 11/21/24 Procedure(s): ECG 12 lead Accession Number(s): [id number] cc: [facility] Test Date: 2024-11-21 Pat Name: PASTOR HAWTHORNE Department: Room: - Gender: Female Wincher: : 1990 Requested By: SIOBHAN EVANGELISTA Order Number: [id number] You MD: PEGGY ROBLES M.D. Measurements Intervals [place] Rate: 68 P: 61 SD: 155 QRS: 45 QRSD: 82 T: 43 QT: 372 QTc: 396 Interpretive Statements SINUS RHYTHM Normal ECG Compared to ECG 09/23/2016 14:26:32 No significant changes Electronically Signed On 11-21-2024 13:57:31 EDT by PEGGY ROBLES M.D. Dictated By: PEGGY ROBLES Signed By: 11/21/24 1354 DD/ 0946 TD/TT: Biomass Facilitator: Procedure Note Radiology, Radiologist, - 11/21/2024 [place] [address] Electrocardiograph Report Signed Patient: PASTOR HAWTHORNE RMR#: [id number] : 1990Acct:[id number] Age/Sex: 33 / FADM Date: 11/21/24 Loc: PST Attending Dr: Hari Perez D.O. Ordering Physician: Hari Perez D.O. Date of Service: 11/21/24 Procedure(s): ECG 12 lead Accession Number(s): [id number] cc: [facility] Test Date: 2024-11-21 Pat Name: PASTOR HAWTHORNE Department: Room: - Gender: Female Wincher: : 1990 Requested By: SIOBHAN EVANGELISTA Order Number: [id number] Reading MD: PEGGY ROBLES M.D. Measurements Intervals [place] Rate: 68 P: 61 SD: 155 QRS: 45 QRSD: 82 T: 43 QT: 372 QTc: 396 Interpretive Statements SINUS RHYTHM Normal ECG Compared to ECG 09/23/2016 14:26:32 No significant changes Electronically Signed On 11-21-2024 13:57:31 EDT by PEGGY ROBLES M.D. Dictated By: PEGGY ROBLES Signed By:11/21/24 1357 DD/ TD/TT: Biomass Facilitator: us Hari Perez DO [facility] Final Result * (ABNORMAL) RECURRENT VAGINITIS (HTRX) (10/03/2024 12:34 PM EDT) ATOPOBIUM VAGINAE 17.767(A) 19.961 - 24.689 ppm 10/04/2024 7:37 AM EDT [facility] ATOPOBIUM VAGINAE Detected(A) 19.961 - 24.689 ppm 10/04/2024 7:37 AM EDT [facility] BVAB 2,3 (BACTERIAL VAGINOSIS ASSOCIATED BACTERIA 2, 3); MOBILUNCUS SPP 0 19.961 - 24.689 ppm 10/04/2024 7:37 AM EDT [facility] BVAB 2,3 (BACTERIAL VAGINOSIS ASSOCIATED BACTERIA 2, 3); MOBILUNCUS SPP Not Detected 19.961 - 24.689 ppm 10/04/2024 7:37 AM EDT [facility] WILFRIDO ALBICANS, PARAPSILOSIS, TROPICALIS 29.053(A) 19.961 - 30.770 ppm 10/04/2024 7:37 AM EDT [facility] WILFRIDO ALBICANS, PARAPSILOSIS, TROPICALIS Detected(A) 19.961 - 30.770 ppm 10/04/2024 7:37 AM EDT [facility] WILFRIDO GLABRATA 0 23.000 - 32.138 ppm 10/04/2024 7:37 AM EDT [facility] WILFRIDO GLABRATA Not Detected 23.000 - 32.138 ppm 10/04/2024 7:37 AM EDT [facility] WILFRIDO KRUSEI 0 23.000 - 32.271 ppm 10/04/2024 7:37 AM EDT [facility] WILFRIDO KRUSEI Not Detected 23.000 - 32.271 ppm 10/04/2024 7:37 AM EDT [facility] CHLAMYDIA TRACHOMATIS 0 23.000 - 31.467 ppm 10/04/2024 7:37 AM EDT [facility] CHLAMYDIA TRACHOMATIS Not Detected 23.000 - 31.467 ppm 10/04/2024 7:37 AM EDT [facility] GARDNERELLA VAGINALIS 0 19.961 - 24.689 ppm 10/04/2024 7:37 AM EDT [facility] GARDNERELLA VAGINALIS Not Detected 19.961 - 24.689 ppm 10/04/2024 7:37 AM EDT [facility] MEGASPHAERA (TYPES 1, 2) 0 19.961 - 24.689 ppm 10/04/2024 7:37 AM EDT [facility] MEGASPHAERA (TYPES 1, 2) Not Detected 19.961 - 24.689 ppm 10/04/2024 7:37 AM EDT [facility] NEISSERIA GONORRHOEAE 0 23.000 - 32.117 ppm 10/04/2024 7:37 AM EDT [facility] NEISSERIA GONORRHOEAE Not Detected 23.000 - 32.117 ppm 10/04/2024 7:37 AM EDT [facility] TRICHOMONAS VAGINALIS 0 23.000 - 32.119 ppm 10/04/2024 7:37 AM EDT [facility] TRICHOMONAS VAGINALIS Not Detected 23.000 - 32.119 ppm 10/04/2024 7:37 AM EDT [facility] MYCOPLASMA GENITALIUM 0 19.961 - 24.689 ppm 10/04/2024 7:37 AM EDT [facility] MYCOPLASMA GENITALIUM Not Detected 19.961 - 24.689 ppm 10/04/2024 7:37 AM EDT [facility] Tissue 10/03/2024 12:3 4 PM EDT 10/04/2024 2:40 AM EDT us Hari Perez DO LAB BLOOD ORDERABLES Final Resul t [facility] [address] [place] [address] * POCT urinalysis dipstick manually resulted (10/03/2024 [...] - 9 Protein, UA Negative Negative - 1999(20) ++++ mg/dL Urobilinogen, UA 0.2 0.2 - 12 mg/dL Leukocytes, UA Negative Negative - 500+++ Tyra/mcL Nitrite, UA Negative Negative - Positive Urine 10/03/2024 10:3 9 AM EDT Hari Perez DO POINT OF CARE TEST ENTER/EDIT OR DERABLES Final Result * THINPREP PAP AND HPV MRNA E6/E7 W/RFL HPV 16,18/45 (11/20/2022 11:33 AM EDT) us Katiuska Rojas PA LAB BLOOD ORDERABLES Final Resul t EXTERNAL LAB * Pap Smear (11/20/2022 12:00 AM EDT) Swab Cervical swab / Unknown Hari Perez DO LAB CYTOLOGY ORDERABLES Final Re sult EXTERNAL LAB from Last 3 Months or Most Recently Relevant to Health Maintenance Insurance [facility] MEDICAID [place] Care Teams Capper Machine Operator Relationship Specialty Start Date End Date Siobhan Evangelista MD [address] [place] [address] PCP - General Family Medicine 10/07/22
--- OUTSIDE RECORDS SUMMARY | 2024-12-01 06:30 | XMS_ITS | Encounter Summary ---
Author Organization [facility] Address [address] [place] [address] Care Team Providers Care Dialysis Rn Name Role Phone Braulio Pan MD Unavailable [phone] Braulio Pan MD Primary Care Provider [phone] Braulio Pan MD Unavailable [phone] Ruddy Pack DO Unavailable [phone] Source Comments In the event this information is protected by the Federal Confidentiality of Alcohol and Drug AbusePatient Records regulations: The Federal rules restrict any use of the information to criminally investigate or prosecute any alcohol or drug abuse patient.[facility] Encounter Details Date Type Department Care Team (Late st Contact Info) Description 11/10/2021 Get Medical Advice [facility] [address] [place] [address] [place] [address] [place] [address] Syncope episode Social History Tobacco Use Types [...] N ot on file 09/03/2021 Data from: https://www.neighborhoodatlas.medicine.[facility]/. Last address used for calculation [address] [address] 09/03/2021 Comments No Sex [...] Info) Description 12/29/2024 8:30 AM EDT [facility] Neurology Headache [facility] [address] [place] [address] Deric Fam APRN.AUTOMATIC SPINNING LATHE OPERATOR [address] [place] [address] re-occuring migraines documented as of this encounter Visit Diagnoses Not on filedocumented in this encounter Additional Health Concerns Infection Onset Date Last Indicated Resolved Time COVID-19 Rule-Out 01/22/2022 01/22/2022 01/22/2022 5:51 AM EDT documented as of this encounter Care Teams Dialysis Rn Relationship Specialty Start Date End Date Braulio Pan MD [address] [place] [address] PCP - General Family Medicine 01/22/22 Braulio Pan MD Referring Family Medicine 08/20/21 Braulio Pan MD [address] [place] [address] Referring Family Medicine 12/04/22 Ruddy Pack DO [address] [place] [address] Primary Staff Physician Cardiology 08/17/23 documented as of this encounter
--- OUTSIDE RECORDS SUMMARY | 2024-12-01 06:30 | XMS_ITS | Encounter Summary ---
Author Organization [facility] Address [address] [place] [address] Care Team Providers Care Hydraulic Hammer Operator Name Role Phone Braulio Pan MD Unavailable [phone] Braulio Pan MD Primary Care Provider [phone] Braulio Pan MD Unavailable [phone] Ruddy Pack DO Unavailable [phone] Source Comments In the event this information is protected by the Federal Confidentiality of Alcohol and Drug AbusePatient Records regulations: The Federal rules restrict any use of the information to criminally investigate or prosecute any alcohol or drug abuse patient.[facility] Encounter Details Date Type Department Care Team (Late st Contact Info) Description 01/30/2022 Patient Msg Neurology [address] [place] [address] Provider, [facility] Neurology follow up [...] place to sleep or slept in a halfway (including now)? No 01/22/2022 Area Deprivation Index Answer Date Shaka rded National Score (1-100), lower number is lower ri sk 53 09/03/2021 State Score (1-10), lower number is lower risk N ot on file 09/03/2021 Data from: https://www.neighborhoodatlas.medicine.[facility].edu/. Last address used for calculation [address] [address] 09/03/2021 Comments No Sex [...] Info) Description 12/29/2024 8:30 AM EDT [facility] Neurology Headache [facility] [address] [place] [address] Deric Fam APRN.LENS DOTTER [address] [place] [address] re-occuring migraines documented as of this encounter Visit Diagnoses Not on filedocumented in this encounter Care Teams Hydraulic Hammer Operator Relationship Specialty Start Date End Date Braulio Pan MD [address] [place] [address] PCP - General Family Medicine 01/22/22 Braulio Pan MD Referring Family Medicine 08/20/21 Braulio Pan MD [address] [place] [address] Referring Family Medicine 12/04/22 Ruddy Pack DO [address] [facility] [place] [address] Primary Staff Physician Cardiology 08/17/23 documented as of this encounter
--- OUTSIDE RECORDS SUMMARY | 2024-12-01 06:30 | XMS_ITS | Encounter Summary ---
Author Organization [facility] Address [address] [place] [address] Care Team Providers Care Station Usher Name Role Phone Braulio Pan MD Unavailable [phone] Braulio Pan MD Primary Care Provider [phone] Braulio Pan MD Unavailable [phone] Ruddy Pack DO Unavailable Source Comments In the event this information is protected by the Federal Confidentiality of Alcohol and Drug AbusePatient Records regulations: The Federal rules restrict any use of the information to criminally investigate or prosecute any alcohol or drug abuse patient.[facility] Encounter Details Date Type Department Care Team (Late st Contact Info) Description 10/27/2023 Patient Msg Neurology [address] [place] [address] Sweta Wang PA-C [address] [place] [address] Appointment Request Social History Tobacco [...] is lower risk 3 08/17/2023 Data from: https://www.neighborhoodatlas.medicine.[facility].edu/. Last address used for calculation [address] [address] 08/17/2023 Comments No Sex and [...] Contact Info) Description 12/29/2024 8:30 AM EDT [facility] Neurology Headache [facility] [address] [place] [address] Deric Fam APRN.SOFTWARE DEVELOPMENT TEST ENGINEER [address] [place] [address] re-occuring migraines documented as of this encounter Goals Goal Patient Goal Type Associated Problems Recent Progress Patient-Stated? Author Blood Pressure < 130/80 Blood Pressure 126/80( 024 11:53 AM EDT) No Daxa Ascencio RN documented as of this encounter Visit Diagnoses Not on filedocumented in this encounter Care Teams Station Usher Relationship Specialty Start Date End Date Braulio Pan MD [address] [place] [address] PCP - General Family Medicine 01/22/22 Braulio Pan MD Referring Family Medicine 08/20/21 Braulio Pan MD [address] [place] [address] Referring Family Medicine 12/04/22 Ruddy Pack DO [address] [facility] [place] [address] Primary Staff Physician Cardiology 08/17/23 documented as of this encounter
--- OUTSIDE RECORDS SUMMARY | 2024-12-01 06:30 | XMS_ITS | Encounter Summary ---
Author Organization [facility] Address [address] [place] [address] Care Team Providers Care Roller Shop Utility Worker Name Role Phone Braulio Pan MD Unavailable [phone] Braulio Pan MD Primary Care Provider [phone] Braulio Pan MD Unavailable [phone] Ruddy Pack DO Unavailable [phone] Source Comments In the event this information is protected by the Federal Confidentiality of Alcohol and Drug AbusePatient Records regulations: The Federal rules restrict any use of the information to criminally investigate or prosecute any alcohol or drug abuse patient.[facility] Encounter Details Date Type Department Care Team (Late st Contact Info) Description 02/13/2024 Patient Msg Neurology [address] [place] [id number] Jhoana Daily MD [address] [place] [address] Appointment Request Social History Tobacco [...] is lower risk 3 08/17/2023 Data from: https://www.neighborhoodatlas.medicine.[facility].edu/. Last address used for calculation [address] 08/17/2023 Comments No [...] Contact Info) Description 12/29/2024 8:30 AM EDT [facility] Neurology Headache [facility] [address] [place] [address] Deric Fam APRN.TETRYL SCREEN OPERATOR [address] [place] [address] re-occuring migraines documented as of this encounter Goals Goal Patient Goal Type Associated Problems Recent Progress Patient-Stated? Author Blood Pressure < 130/80 Blood Pressure 126/80( 024 11:53 AM EDT) No Daxa Ascencio RN documented as of this encounter Visit Diagnoses Not on filedocumented in this encounter Care Teams Roller Shop Utility Worker Relationship Specialty Start Date End Date Braulio Pan MD [address] [place] [address] PCP - General Family Medicine 01/22/22 Braulio Pan MD Referring Family Medicine 08/20/21 Braulio Pan MD [address] [place] [address] Referring Family Medicine 12/04/22 Ruddy Pack DO [address] [facility] [place] [address] Primary Staff Physician Cardiology 08/17/23 documented as of this encounter
--- OUTSIDE RECORDS SUMMARY | 2024-12-01 06:30 | XMS_ITS | Encounter Summary ---
Author Organization [facility] Address [address] [place] [address] Care Team Providers Care Director Of Sustainable Design Name Role Phone Braulio Pan MD Primary Care Provider [phone] Encounter Details Date Type Department Care Team (Late Contact Info) Description 08/17/2023 Abstract [facility] Debra GALICIA [address] [place] [address] Hari Perez DO [address] [facility] [address] [place], [place] [address] Social History Tobacco Use Types Packs/Day Years [...] EDT Office Visit [facility] Debra GALICIA [address] [place] [address] Katiuska Rojas PA [address] [facility] [address] [place], [facility] documented as of this encounter Visit Diagnoses Not on filedocumented in this encounter Care Teams Director Of Sustainable Design Relationship Specialty Start Date End Date Braulio Pan MD [address] [place] [address] PCP - General Family Medicine 10/07/22 documented as of this encounter
--- OUTSIDE RECORDS SUMMARY | 2024-12-01 06:30 | XMS_ITS | Encounter Summary ---
Author Organization [facility] Address [address] [place] [address] Care Team Providers Care Vat Operator Name Role Phone Braulio Pan MD Primary Care Provider [phone] Reason for Visit * Reason Comments Med Refill Encounter Details Date Type Department Care Team (Late Contact Info) Description 11/19/[address] [facility] [place] [address] Hari Perez DO [address] [facility] [address] [place], [place] [address] Dyspareunia in female Social History Tobacco Use [...] PM EDT Office Visit [facility] GALICIA [address] [facility] [facility] [place] [address] Katiuska Rojas PA [address] [facility] [address] [place], [facility] documented as of this encounter Visit Diagnoses Diagnosis Dyspareunia in female documented in this encounter Care Teams Vat Operator Relationship Specialty Start Date End Date Braulio Pan MD [address] [place] [address] PCP - General Family Medicine 10/07/22 documented as of this encounter
--- OUTSIDE RECORDS SUMMARY | 2024-12-01 06:30 | XMS_ITS | Encounter Summary ---
Author Organization [employer] Address [id number] [place] [address] Care Team Providers Care Satin Finisher Name Role Phone Braulio Pan MD Primary Care Provider [phone] Encounter Details Date Type Department Care Team (Late st Contact Info) Description 08/22/2021 [facility] [address] [place] [phone] Mabel Cullen Social History Tobacco Use Types [...] AM EDT Patient has been scheduled in [place] with Dr. Hernandez for 10/10. documented in this encounter Plan of Treatment Upcoming Encounters Date Type Department Care Team ([facility] st Contact Info) Description 01/23/2025 12:30 PM EDT Office Visit [facility] [address] [address] Lorenza Duncan, PA-C [address] [facility] [address] [place] [address] documented as of this encounter Visit Diagnoses Not on filedocumented in this encounter Additional Health Concerns Infection Onset Date Last Indicated Resolved Time COVID-19 Positive 04/09/2022 04/09/2022 04/30/2022 11:12 PM EST documented as of this encounter Care Teams Satin Finisher Relationship Specialty Start Date End Date Braulio Pan MD [address] [place] [address] PCP - General Family Medicine 02/11/24 documented as of this encounter
--- OUTSIDE RECORDS SUMMARY | 2024-12-01 06:30 | XMS_ITS | Encounter Summary ---
Author Organization [facility] Address [address] [place] [address] Care Team Providers Care On Air Talent Name Role Phone Braulio Pan MD Unavailable [phone] Braulio Pan MD Primary Care Provider [phone] Braulio Pan MD Unavailable [phone] Ruddy Pack DO Unavailable [phone] Source Comments In the event this information is protected by the Federal Confidentiality of Alcohol and Drug AbusePatient Records regulations: The Federal rules restrict any use of the information to criminally investigate or prosecute any alcohol or drug abuse patient.[facility] Encounter Details Date Type Department Care Team (Late st Contact Info) Description 09/07/2023 Patient Msg Cardiology [address] [place] [address] Ruddy Pack DO [address] [place] [address] CPET Social History Tobacco Use [...] is lower risk 3 08/17/2023 Data from: https://www.neighborhoodatlas.medicine.[facility].edu/. Last address used for calculation [address] [address] 08/17/2023 Comments No [...] Contact Info) Description 12/29/2024 8:[address] [facility] Neurology Headache [facility] [address] [place] [address] Deric Fam APRN.ASSISTANT WRESTLING COACH [address] [place] [address] re-occuring migraines documented as of this encounter Goals Goal Patient Goal Type Associated Problems Recent Progress Patient-Stated? Author Blood Pressure < 130/80 Blood Pressure 126/80( 024 11:53 AM EDT) No Daxa Ascencio RN documented as of this encounter Visit Diagnoses Not on filedocumented in this encounter Care Teams On Air Talent Relationship Specialty Start Date End Date Braulio Pan MD [address] [place] [address] PCP - General Family Medicine 01/22/22 Braulio Pan MD Referring Family Medicine 08/20/21 Braulio Pan MD [address] [place] [address] Referring Family Medicine 12/04/22 Ruddy Pack DO [address] [facility] [address] Primary Staff Physician Cardiology 08/17/23 documented as of this encounter
--- OUTSIDE RECORDS SUMMARY | 2024-12-01 06:30 | XMS_ITS | Clinical Summary ---
Author Organization [employer] s tem Address [facility]-[id number] [address] [place] [address] Care Team Providers Care Managed Care Coordinator Name Role Phone Braulio Pan MD Primary Care Provider [phone] Allergies Active Allergy Reactions Criticality Noted Date [...] - 09/12/2024 11:59 PM EDT Hospital Encounter [facility] - MRI Imaging [address] [place] [address] Chiari I malformation (CMS-HCC); Intractable [...] 12:30 PM EDT Office Visit [facility], A Department of [facility] [address] [facility] [address] [place] [phone] Lorenza Duncan, PA-C [address] [facility] [address] [place] [address] Health Maintenance Due Date Last Done Comments [...] cerebral angiogram is performed by using 3-D mcem-ui-regdvd technique. Maximum intensity intensity projection and 3-D [...] cerebral angiogram is performed by using 3-D jbxn-nz-hodupvczgjeaqma. Maximum intensity intensity projection and 3-D images [...] 3 Months Insurance [employer] Care Teams Managed Care Coordinator Relationship Specialty Start Date End Date Braulio Pan MD [address] [place] [address] PCP - General Family Medicine 02/11/24
--- OUTSIDE RECORDS SUMMARY | 2024-12-01 06:30 | XMS_ITS | Encounter Summary ---
Author Organization [facility] Address [address] [place] [address] Care Team Providers Care Maintenance Shop Manager Name Role Phone Braulio Pan MD Primary Care Provider [phone] Encounter Details Date Type Department Care Team ([facility] Contact Info) Description 09/17/2022 Abstract [facility] [address] [facility] [place] [address] Hari Perez DO [address] [facility] [address] [place], [facility]11 Social History Tobacco Use Types Packs/Day Years Used Date Smoking Tobacco: Never Assessed Comments Unknown Sex and Gender Information Value Date Recorded Sex Assigned at Not on file Legal Sex Female 7:08 PM EDT Gender Identity Not on file Sexual Orientation Not on file documented as of this encounter Plan of Treatment Upcoming Encounters Date Type Department Care Team ([facility] Contact Info) Description 12/07/2024 4:00 PM EDT Office Visit [facility] [address] [place] [address] [place] [phone] Katiuska Rojas PA [address] [facility] [address] [place], [facility]11 documented as of this encounter Visit Diagnoses Not on filedocumented in this encounter Care Teams Maintenance Shop Manager Relationship Specialty Start Date End Date Braulio Pan MD [address] [facility] [place] [address] PCP - General Family Medicine 10/07/22 documented as of this encounter
--- OUTSIDE RECORDS SUMMARY | 2024-12-01 06:30 | XMS_ITS | Encounter Summary ---
Author Organization [facility] tem Address [id number] [address] [place] [address] Care Team Providers Care Rewinder Name Role Phone Braulio Pan MD Primary Care Provider [phone] Encounter Details Date Type Department Care Team (Late st Contact Info) Description 12/08/2021 Orders Only [facility] Cardiology [address] [facility] [address] [place] [id number] External, Scanning Provider Social History Tobacco Use [...] Description 01/23/2025 12:30 PM EDT Office Visit [facility], A Department of [address] [phone] Lorenza Duncan PAOwenC [address] [facility] [address] [place] [address] documented as of this encounter Procedures Procedure Name Priority Date/Time Associated Diagnosis Comments EVENT MONITOR Routine 11/21/2021 3:47 PM EDT documented in this encounter Visit Diagnoses Not on filedocumented in this encounter Additional Health Concerns Infection Onset Date Last Indicated Resolved Time COVID-19 Positive 04/09/2022 04/09/2022 04/30/2022 11:12 PM EST documented as of this encounter Care Teams Rewinder Relationship Specialty Start Date End Date Braulio Pan MD [address] [place] [address] PCP - General Family Medicine 02/11/24 documented as of this encounter
--- OUTSIDE RECORDS SUMMARY | 2024-12-01 06:30 | XMS_ITS | Encounter Summary ---
Author Organization [facility] Address [address] [place] [address] Care Team Providers Care Potato Grader Name Role Phone Braulio Pan MD Unavailable [phone] Braulio Pan MD Primary Care Provider [phone] Braulio Pan MD Unavailable [phone] Ruddy Pack DO Unavailable [phone] Source Comments In the event this information is protected by the Federal Confidentiality of Alcohol and Drug AbusePatient Records regulations: The Federal rules restrict any use of the information to criminally investigate or prosecute any alcohol or drug abuse patient.[facility] Encounter Details Date Type Department Care Team (Late st Contact Info) Description 09/22/2021 Get Medical Advice Peds Cognitive NS [address] [place] [address] Samy Spivey PA-C [address] [place] [address] MRI Results Social History Tobacco [...] N ot on file 09/03/2021 Data from: https://www.neighborhoodatlas.medicine.[facility].edu/. Last address used for calculation [address] [address] 09/03/2021 Comments No [...] Contact Info) Description 12/29/2024 8:30 AM EDT [facility] Headache [facility] [address] [place] [address] Deric Fam APRN.DRUM CLEANER [address] [place] [address] re-occuring migraines documented as of this encounter Visit Diagnoses Not on filedocumented in this encounter Additional Health Concerns Infection Onset Date Last Indicated Resolved Time COVID-19 Rule-Out 01/22/2022 01/22/2022 01/22/2022 5:51 AM EDT documented as of this encounter Care Teams Potato Grader Relationship Specialty Start Date End Date Braulio Pan MD [address] [place] [address] PCP - General Family Medicine 01/22/22 Braulio Pan MD Referring Family Medicine 08/20/21 Braulio Pan MD [address] [place] [address] Referring Family Medicine 12/04/22 Ruddy Pack DO [address] [facility] [place] [address] Primary Staff Physician Cardiology 08/17/23 documented as of this encounter
--- OUTSIDE RECORDS SUMMARY | 2024-12-01 06:30 | XMS_ITS | Encounter Summary ---
Author Organization [facility] Address [address] [place] [address] Care Team Providers Care Microfilm Camera Operator Name Role Phone Braulio Pan MD Unavailable [phone] Braulio Pan MD Primary Care Provider +- Braulio Pan MD Unavailable [phone] Ruddy Pack DO Unavailable [phone] Source Comments In the event this information is protected by the Federal Confidentiality of Alcohol and Drug AbusePatient Records regulations: The Federal rules restrict any use of the information to criminally investigate or prosecute any alcohol or drug abuse patient.[facility] Encounter Details Date Type Department Care Team (Late st Contact Info) Description 12/05/2023 [place] [address] Provider, Ccf A Message from the [facility] Recovery Department Social History Tobacco Use Types [...] place to sleep or slept in a detention (including now)? No 01/22/2022 Area Deprivation Index Answer Date Shaka rded National Score (1-100), lower number is lower ri sk 52 08/17/2023 State Score (1-10), lower number is lower risk 3 08/17/2023 Data from: https://www.neighborhoodatlas.medicine.[facility].edu/. Last address used for calculation [address] [address] 08/17/2023 Comments No Sex and [...] Contact Info) Description 12/29/2024 8:30 AM EDT [facility] Neurology Headache [facility] [address] [place] [address] Deric Fam APRN.LANDSCAPE SPECIALIST [address] [place] [address] re-occuring migraines documented as of this encounter Goals Goal Patient Goal Type Associated Problems Recent Progress Patient-Stated? Author Blood Pressure < 130/80 Blood Pressure 126/80( 024 11:53 AM EDT) No Daxa Ascencio, EDUARDO documented as of this encounter Visit Diagnoses Not on filedocumented in this encounter Care Teams Microfilm Camera Operator Relationship Specialty Start Date End Date Braulio Pan MD [address] [place] [address] PCP - General Family Medicine 01/22/22 Braulio Pan MD Referring Family Medicine 08/20/21 Braulio Pan MD [address] [place] [address] Referring Family Medicine 12/04/22 Ruddy Pack DO [address] [place] [address] Primary Staff Physician Cardiology 08/17/23 documented as of this encounter
--- OUTSIDE RECORDS SUMMARY | 2024-12-01 06:30 | XMS_ITS | Encounter Summary ---
Author Organization [facility] Address [address] [place] [address] Care Team Providers Care Curtain Cutter Hand Name Role Phone Braulio Pan MD Unavailable [phone] Braulio Pan MD Primary Care Provider +- Braulio Pan MD Unavailable [phone] Ruddy Pack DO Unavailable Source Comments In the event this information is protected by the Federal Confidentiality of Alcohol and Drug AbusePatient Records regulations: The Federal rules restrict any use of the information to criminally investigate or prosecute any alcohol or drug abuse patient.[facility] Encounter Details Date Type Department Care Team (Late st Contact Info) Description 09/06/2023 [place] [address] Provider, Ccf A Message from the [facility] Recovery Department Social History Tobacco Use [...] is lower risk 3 08/17/2023 Data from: https://www.neighborhoodatlas.medicine.[facility].edu/. Last address used for calculation [address] [...] AM EDT [facility] Neurology Headache [facility] [address] [place] [address] Deric Fam APRN.KNIFE EDGER [address] [place] [address] re-occuring migraines documented as of this encounter Goals Goal Patient Goal Type Associated Problems Recent Progress Patient-Stated? Author Blood Pressure < 130/80 Blood Pressure 126/80( 024 11:53 AM EDT) No Daxa Ascencio, EDUARDO documented as of this encounter Visit Diagnoses Not on filedocumented in this encounter Care Teams Curtain Cutter Hand Relationship Specialty Start Date End Date Braulio Pan MD [address] [place] [address] PCP - General Family Medicine 01/22/22 Braulio Pan MD Referring Family Medicine 08/20/21 Braulio Pan MD [address] [place] [address] Referring Family Medicine 12/04/22 Ruddy Pack DO [address] [place] [address] Primary Staff Physician Cardiology 08/17/23 documented as of this encounter
--- OUTSIDE RECORDS SUMMARY | 2024-12-01 06:30 | XMS_ITS | Encounter Summary ---
Author Organization [facility] Address [address] [place] [address] Care Team Providers Care Head Of Product Name Role Phone Braulio Pan MD Unavailable [phone] Braulio Pan MD Primary Care Provider [phone] Braulio Pan MD Unavailable [phone] Ruddy Pack DO Unavailable [phone] Source Comments In the event this information is protected by the Federal Confidentiality of Alcohol and Drug AbusePatient Records regulations: The Federal rules restrict any use of the information to criminally investigate or prosecute any alcohol or drug abuse patient.[facility] Encounter Details Date Type Department Care Team (Late st Contact Info) Description 09/30/2021 Patient Msg Peds Cognitive NS [address] [place] [address] Samy Spivey PA-C [address] [place] [address] follow up Social History Tobacco [...] N ot on file 09/03/2021 Data from: https://www.neighborhoodatlas.medicine.[facility].edu/. Last address used for calculation [address] [address] 09/03/2021 Comments No Sex [...] Contact Info) Description 12/29/2024 8:30 AM EDT [facility] Neurology Headache [facility] [address] [place] [address] Deric Fam APRN.LOUVER DOOR ASSEMBLER [address] [place] [address] re-occuring migraines documented as of this encounter Visit Diagnoses Not on filedocumented in this encounter Additional Health Concerns Infection Onset Date Last Indicated Resolved Time COVID-19 Rule-Out 01/22/2022 01/22/2022 01/22/2022 5:51 AM EDT documented as of this encounter Care Teams Head Of Product Relationship Specialty Start Date End Date Braulio Pan MD [address] [place] [address] PCP - General Family Medicine 01/22/22 Braulio Pan MD Referring Family Medicine 08/20/21 Braulio Pan MD [address] [place] [address] Referring Family Medicine 12/04/22 Ruddy Pack DO [address] [facility] [place] [address] Primary Staff Physician Cardiology 08/17/23 documented as of this encounter
--- OUTSIDE RECORDS SUMMARY | 2024-12-01 06:30 | XMS_ITS | Encounter Summary ---
Author Organization [facility] Address [address] [place] [address] Care Team Providers Care Special Procedures Tech Name Role Phone Braulio Pan MD Unavailable [phone] Braulio Pan MD Primary Care Provider [phone] Braulio Pan MD Unavailable [phone] Ruddy Pack DO Unavailable [phone] Source Comments In the event this information is protected by the Federal Confidentiality of Alcohol and Drug AbusePatient Records regulations: The Federal rules restrict any use of the information to criminally investigate or prosecute any alcohol or drug abuse patient.[facility] Encounter Details Date Type Department Care Team (Late st Contact Info) Description 11/01/2023 Patient Msg Cardiology [address] [place] [address] Ruddy Pack DO [address] [place] [address] Social History Tobacco Use Types [...] is lower risk 3 08/17/2023 Data from: https://www.neighborhoodatlas.medicine.[facility].edu/. Last address used for calculation [address] [address] 08/17/2023 Comments No [...] Contact Info) Description 12/29/2024 8:30 AM EDT [facility] Neurology Headache [facility] [address] [place] [address] Deric Fam APRN.BUSINESS ANALYSIS SPECIALIST [address] [place] [address] re-occuring migraines documented as of this encounter Goals Goal Patient Goal Type Associated Problems Recent Progress Patient-Stated? Author Blood Pressure < 130/80 Blood Pressure 126/80( 024 11:53 AM EDT) No Daxa Ascencio RN documented as of this encounter Visit Diagnoses Not on filedocumented in this encounter Care Teams Special Procedures Tech Relationship Specialty Start Date End Date Braulio Pan MD [address] [place] [address] PCP - General Family Medicine 01/22/22 Braulio Pan MD Referring Family Medicine 08/20/21 Braulio Pan MD [address] [place] [address] Referring Family Medicine 12/04/22 Ruddy Pack DO [address] [facility] [address] Primary Staff Physician Cardiology 08/17/23 documented as of this encounter
--- OUTSIDE RECORDS SUMMARY | 2024-12-01 06:30 | XMS_ITS | Encounter Summary ---
Author Organization [facility] Address [address] [place] [address] Care Team Providers Care Sales Service Professional Name Role Phone Braulio Pan MD Unavailable [phone] Braulio Pan MD Primary Care Provider [phone] Braulio Pan MD Unavailable [phone] Ruddy Pack DO Unavailable [phone] Source Comments In the event this information is protected by the Federal Confidentiality of Alcohol and Drug AbusePatient Records regulations: The Federal rules restrict any use of the information to criminally investigate or prosecute any alcohol or drug abuse patient.[facility] Encounter Details Date Type Department Care Team (Late st Contact Info) Description 10/27/2023 Get Medical Advice Neurology [address] [place] [address] Jhoana Daily MD [address] [place] [address] Letter for Headaches Social History [...] is lower risk 3 08/17/2023 Data from: https://www.neighborhoodatlas.medicine.[facility].edu/. Last address used for calculation [...] Contact Info) Description 12/29/2024 8:30 AM EDT [facility] Neurology Headache [facility] [address] [place] [address] Deric Fam APRN.PESTICIDE CHEMIST [address] [place] [address] re-occuring migraines documented as of this encounter Goals Goal Patient Goal Type Associated Problems Recent Progress Patient-Stated? Author Blood Pressure < 130/80 Blood Pressure 126/80( 024 11:53 AM EDT) No Silva Daxa, EDUARDO documented as of this encounter Visit Diagnoses Not on filedocumented in this encounter Care Teams Sales Service Professional Relationship Specialty Start Date End Date Braulio Pan MD [address] [place] [address] PCP - General Family Medicine 01/22/22 Braulio Pan MD Referring Family Medicine 08/20/21 Braulio Pan MD [address] [place] [address] Referring Family Medicine 12/04/22 Ruddy Pack DO [address] [facility] [place] [place] [address] Primary Staff Physician Cardiology 08/17/23 documented as of this encounter
--- OUTSIDE RECORDS SUMMARY | 2024-12-01 06:30 | XMS_ITS | Encounter Summary ---
Author Organization [facility] Address [address] [place] [address] Care Team Providers Care Educational/Development Assistant Name Role Phone Braulio Pan MD Unavailable [phone] Braulio Pan MD Primary Care Provider [phone] Braulio Pan MD Unavailable [phone] Ruddy Pack DO Unavailable [phone] Source Comments In the event this information is protected by the Federal Confidentiality of Alcohol and Drug AbusePatient Records regulations: The Federal rules restrict any use of the information to criminally investigate or prosecute any alcohol or drug abuse patient.[facility] Encounter Details Date Type Department Care Team (Late st Contact Info) Description 02/23/2022 Patient Msg Neurology [address] [place] [address] Massiel Ashford, BEADWORKER.PRINT COLOR MATCHER [address] [place] [address] Labs Social History Tobacco Use [...] on file 09/03/2021 Data from: https://www.neighborhoodatlas.medicine.[facility].edu/. Last address used for calculation [address] [...] Contact Info) Description 12/29/2024 8:30 AM EDT [facility] Neurology Headache [facility] [address] [place] [address] Deric Fam APRN.PRINT COLOR MATCHER [address] [place] [address] re-occuring migraines documented as of this encounter Visit Diagnoses Not on filedocumented in this encounter Care Teams Educational/Development Assistant Relationship Specialty Start Date End Date Braulio Pan MD [address] [place] [address] PCP - General Family Medicine 01/22/22 Braulio Pan MD Referring Family Medicine 08/20/21 Braulio Pan MD [address] [place] [address] Referring Family Medicine 12/04/22 Ruddy Pack DO [address] [facility] [place] [address] Primary Staff Physician Cardiology 08/17/23 documented as of this encounter
--- OUTSIDE RECORDS SUMMARY | 2024-12-01 06:30 | XMS_ITS | Encounter Summary ---
Author Organization [facility] Address [address] [place] [address] Care Team Providers Care Home Care Companion Name Role Phone Braulio Pan MD Primary Care Provider [phone] Reason for Visit * Reason Comments Med Refill Encounter Details Date Type Department Care Team (Late Contact Info) Description 06/09/2024 Refill [facility] [address] [place] [address] Hari Perez DO [address] [facility] [address] [place], [place] [address] Dyspareunia in female Social History Tobacco Use [...] PM EDT Office Visit [facility] [address] [place] [address] Katiuska Rojas PA [address] [facility] [address] [place], [facility] documented as of this encounter Visit Diagnoses Diagnosis Dyspareunia in female documented in this encounter Care Teams Home Care Companion Relationship Specialty Start Date End Date Braulio Pan MD [address] [place] [address] PCP - General Family Medicine 10/07/22 documented as of this encounter
--- OUTSIDE RECORDS SUMMARY | 2024-12-01 06:30 | XMS_ITS | Encounter Summary ---
Author Organization [facility] Address [address] [place] [address] Care Team Providers Care Insurance Verification Rep Name Role Phone Braulio Pan MD Unavailable [phone] Braulio Pan MD Primary Care Provider [phone] Braulio Pan MD Unavailable [phone] Ruddy Pack DO Unavailable [phone] Source Comments In the event this information is protected by the Federal Confidentiality of Alcohol and Drug AbusePatient Records regulations: The Federal rules restrict any use of the information to criminally investigate or prosecute any alcohol or drug abuse patient.[facility] Encounter Details Date Type Department Care Team (Latest Contact Info) Description 12/12/2023 [place] [address] Provider, Ccf REMINDER: [facility] Questionnaires [...] is lower risk 3 08/17/2023 Data from: https://www.neighborhoodatlas.medicine.[facility].edu/. Last address used for calculation [address] [address] 08/17/2023 Comments No Sex [...] Contact Info) Description 12/29/2024 8:30 AM EDT [facility] Neurology Headache [facility] [address] [place] [address] Deric Fam APRN.TRAVELING ENGINEER [address] [place] [address] re-occuring migraines documented as of this encounter Goals Goal Patient Goal Type Associated Problems Recent Progress Patient-Stated? Author Blood Pressure < 130/80 Blood Pressure 126/80( 024 11:53 AM EDT) No Daxa Ascencio RN documented as of this encounter Visit Diagnoses Not on filedocumented in this encounter Care Teams Insurance Verification Rep Relationship Specialty Start Date End Date Braulio Pan MD [address] [place] [address] PCP - General Family Medicine 01/22/22 Braulio Pan MD Referring Family Medicine 08/20/21 Braulio Pan MD [address] [place] [address] Referring Family Medicine 12/04/22 Ruddy Pack DO [address] [place] [address] Primary Staff Physician Cardiology 08/17/23 documented as of this encounter
--- OUTSIDE RECORDS SUMMARY | 2024-12-01 06:30 | XMS_ITS | Encounter Summary ---
Author Organization [facility] Address [address] [place] [address] Care Team Providers Care Juice Mixer Name Role Phone Braulio Pan MD Unavailable [phone] Braulio Pan MD Primary Care Provider [phone] Braulio Pan MD Unavailable [phone] Ruddy Pack DO Unavailable [phone] Source Comments In the event this information is protected by the Federal Confidentiality of Alcohol and Drug AbusePatient Records regulations: The Federal rules restrict any use of the information to criminally investigate or prosecute any alcohol or drug abuse patient.[facility] Encounter Details Date Type Department Care Team (Late st Contact Info) Description 05/29/2022 Patient Msg Neurology [address] [place] [address] Provider, Ccf Appointment with Massiel [...] N ot on file 04/25/2022 Data from: https://www.neighborhoodatlas.medicine.[facility].edu/. Last address used for calculation [address] 04/25/2022 Comments No Sex and [...] Contact Info) Description 12/29/2024 8:30 AM EDT [facility] Neurology Headache [facility] [address] [place] [address] Deric Fam APRN.FISHER LAMPARA NET [address] [place] [address] re-occuring migraines documented as of this encounter Visit Diagnoses Not on filedocumented in this encounter Care Teams Juice Mixer Relationship Specialty Start Date End Date Braulio Pan MD [address] [place] [address] PCP - General Family Medicine 01/22/22 Braulio Pan MD Referring Family Medicine 08/20/21 Braulio Pan MD [address] [place] [address] Referring Family Medicine 12/04/22 Ruddy Pack DO [address] [facility] [place] [address] Primary Staff Physician Cardiology 08/17/23 documented as of this encounter
--- OUTSIDE RECORDS SUMMARY | 2024-12-01 06:30 | XMS_ITS | Encounter Summary ---
Author Organization [facility] Address [address] [place] [address] Care Team Providers Care Carton Marker Machine Name Role Phone Braulio Pan MD Unavailable [phone] Braulio Pan MD Primary Care Provider [phone] Braulio Pan MD Unavailable [phone] Ruddy Pack DO Unavailable [phone] Source Comments In the event this information is protected by the Federal Confidentiality of Alcohol and Drug AbusePatient Records regulations: The Federal rules restrict any use of the information to criminally investigate or prosecute any alcohol or drug abuse patient.[facility] Encounter Details Date Type Department Care Team (Latest Contact Info) Description 12/05/2023 [place] [address] Provider, [facility] REMINDER: [facility] Questionnaires [...] is lower risk 3 08/17/2023 Data from: https://www.neighborhoodatlas.medicine.[facility].edu/. 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 Author Blood Pressure < 130/80 Blood Pressure 126/80( 024 11:53 AM EDT) No Daxa Ascencio RN documented as of this encounter Visit Diagnoses Not on filedocumented in this encounter Care Teams Carton Marker Machine Relationship Specialty Start Date End Date Braulio Pan MD [address] [place] [address] PCP - General Family Medicine 01/22/22 Braulio Pan MD Referring Family Medicine 08/20/21 Braulio Pan MD [address] [place] [address] Referring Family Medicine 12/04/22 Ruddy Pack DO [address] [place] [address] Primary Staff Physician Cardiology 08/17/23 documented as of this encounter
--- OUTSIDE RECORDS SUMMARY | 2024-12-01 06:30 | XMS_ITS | Patient Health Record ---
Author Organization [facility] Address [address] [place] [address] Care Team Providers Care Platen Press Operator Name Role Phone Braulio Pan Primary Care Provider Beto Santacruz Unavailable [phone] Izabel Hernandez Unavailable [phone] Results Component Value Reference Range Notes SCC- WRIST 3 VIEW RIGHT 7311 0 Reviewed date:06/08/2024 01:23:30 PM Interpretation: Performing Lab: Notes/Report: Surgery Scheduling Reviewed date:06/08/2024 01:23:35 PM Interpretation:[facility] @ [facility] 02/28/24 Performing Lab: Notes/Report: [facility] @ [facility] 02/28/24 Primary Insurance Company: Medicaid Surgeon/Assist: [place] Surgery Location: [facility] Surgery Date & Time: 02/28/24 @ 1:30 p.m. Surgery End Time: 45 minutes Procedure: Right Wrist Ganglion /Mass Excision, [address] Diagnosis: Right Wrist Ganglion Cyst,, M67.431 Admission Type: Outpatient Anesthesia Type/CPNB: General Post-op Appointment Date: 03/13/24 @ 10:3 0 a.m. [place] Latex Allergy No Lab Location: [facility] Lab Date/Time: 02/23/24 @ 8;00 a.m. Foundry Technician: Cata Reason For Referral Reason MARIO.....Obtain autho rization for right wrist ganglion cyst excision Chapincito Meade 02/16/2024 10:42:08 AM >Cpt code 64645 Diagnosis 1 Ganglion of right wr ist (M67.431) Referral Organization [facility] Referring Provider First Name Beto Referring Provider Last Name Hanane Referring Provider Speciality Orthopedic Surgery Referred Organization [facility] Referred Address [address] [facility], [place],[address], General Notes Katiuska Landeros 024 10:38:32 AM >NEED SX AUTH PLEASE, Araceli Meaded 02/16/2024 10:42:08 AM >Cpt code 27962, Katiuska Landeros 02/16/2024 11:30:46 AM >PATIENT DOES NOT HAVE [place] MEDICAID, THEY HAVE [facility] MEDICAID, Katiuska Landeros 02/16/2024 11:37:17 AM >PER [facility] CODE 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 SKIVING 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, NO AUTH REQUIRED MA NOTIFIED REF FAXED TO [facility] Priority Routine Referral Appointment Date 02/28/2024 Social [...] 02/16/2024 Encounters Encounter Location Date Provider Diagnosis [facility] [address] [place] [address] [place] [id number] 02/16/2024 Izabel Hernandez Ganglion of right wrist M67.431 [facility] [address] [place] [address] 02/28/2024 Beto Koo Ganglion of right wrist M67.431 [facility] Office [address] [place] [address] [place] [address] 03/13/2024 Beto Koo Ganglion of right wrist [...] Medicaid [employer] [place] [address] [place] [address] [id number] PASTOR HELLER Self - patient is the insured Medical (General) History Surgical History Surgery Date(Month/Year) Right wrist ganglion cyst excision 02/27
--- OUTSIDE RECORDS SUMMARY | 2024-12-01 06:30 | XMS_ITS | Encounter Summary ---
Author Organization [facility] Address [address] [place] [address] Care Team Providers Care Commercial Sales Representative Name Role Phone Braulio Pan MD Unavailable [phone] Braulio Pan MD Primary Care Provider [phone] Braulio Pan MD Unavailable [phone] Ruddy Pack DO Unavailable [phone] Source Comments In the event this information is protected by the Federal Confidentiality of Alcohol and Drug AbusePatient Records regulations: The Federal rules restrict any use of the information to criminally investigate or prosecute any alcohol or drug abuse patient.[facility] Encounter Details Date Type Department Care Team (Late st Contact Info) Description 10/27/2023 Get Medical Advice Cardiology [address] [place] [address] Ruddy Pack DO [address] [place], [place] [id number] POTS letter Social History Tobacco Use Types [...] place to sleep or slept in a intermediate (including now)? No 01/22/2022 Area Deprivation Index Answer Date Shaka rded National Score (1-100), lower number is lower ri sk 52 08/17/2023 State Score (1-10), lower number is lower risk 3 08/17/2023 Data from: https://www.neighborhoodatlas.medicine.[facility].edu/. Last address used for calculation [address] [address] 08/17/2023 Comments No Sex [...] 5:00 PM EDT Please contact patient regarding Liztic LLCt message. documented in this encounter Plan of Treatment Upcoming Encounters Date Type Department Care Team (Latest Contact Info) Description 12/29/2024 8:30 AM EDT [facility] Headache [facility] [address] [place] [address] Deric Fam APRN.NECKTIE MAKER [address] [place] [address] re-occuring migraines documented as of this encounter Goals Goal Patient Goal Type Associated Problems Recent Progress Patient-Stated? Author Blood Pressure < 130/80 Blood Pressure 126/80( 024 11:53 AM EDT) No Daxa Ascencio EDUARDO documented as of this encounter Visit Diagnoses Not on filedocumented in this encounter Care Teams Commercial Sales Representative Relationship Specialty Start Date End Date Braulio Pan MD [address] [place] [address] PCP - General Family Medicine 01/22/22 Braulio Pan MD Referring Family Medicine 08/20/21 Braulio Pan MD [address] [place] [address] Referring Family Medicine 12/04/22 Ruddy Pack DO [address] [place] [address] Primary Staff Physician Cardiology 08/17/23 documented as of this encounter
--- OUTSIDE RECORDS SUMMARY | 2024-12-01 06:31 | XMS_ITS | Clinical Summary ---
Author Organization [facility] Address [address] [place] [address] Phone Care Team Providers Care Log Hauler Name Role Phone Unavailable Primary Care Provider [...]
--- OUTSIDE RECORDS SUMMARY | 2024-12-01 06:31 | XMS_ITS | Clinical Summary ---
Author Organization [facility] Address [address] [place] [address] Care Team Providers Care Bi Tri Operator Name Role Phone Unavailable Primary Care Provider [...]
--- OUTSIDE RECORDS SUMMARY | 2024-12-01 06:31 | XMS_ITS | CCD ---
Author Organization [facility] CliniSypr Care Team Providers Care Agricultural Loan Officer Name Role Phone CECI GRADY Attending Unavailable CRYS OGLESBY Referring Unavailable CECI GRADY Attending Unavailable CRYS OGLESBY Referring Unavailable Siobhan Evangelista MD Unavailable Siobhan Evangelista MD Unavailable MD Siobhan Evangelista Primary Care Provider [phone] Fabricio Gottlieb MD Han Admit Provider DO Padmini Moreno Attending Provider [phone] MD [facility] Other Provider DO Gavin Lacey Other Provider Siobhan Evangelista MD Unavailable SARAH Mae Emergency Provider Siobhan Evangelista MD Primary Care Provider [phone] Siobhan Evangelista MD Unavailable Siobhan Evangelista MD Primary Care Provider [phone] TONJA ., DR MCCANN Consulting Unavailable TONJA ., DR MCCANN Attending Unavailable TONJA ., DR MCCANN Admitting Unavailable TONJA ., DR MCCANN Primary Care Unavailable ANA ., DR MCCORD Consulting Unavailable ANA ., DR MCCORD Attending Unavailable ANA ., DR MCCORD Admitting Unavailable HOIdalia ., DR MCCANN Primary Care Unavailable LOAN SAMAYOA Consulting Unavailable MISC, DR SHANNON Attending Unavailable MISC, DR SHANNON Admitting Unavailable MISC, DR SHANNON Consulting Unavailable TONJA Charles, DR MCCANN Primary Care Unavailable CATHRYN, DR FLACO Ryan Consulting Unavailable JAMES HAGEN Consulting Unavailable TONJA ., DR MCCANN Primary Care Unavailable MISC, DR SHANNON Attending Unavailable WEST, DR LOAN Ricardo Consulting Unavailable MISC, DR SHANNON Admitting Unavailable MISC, DR SHANNON Consulting Unavailable ZIEBER, DR FLACO Ryan Consulting Unavailable TONJA ., DR MCCANN Primary Care Unavailable TONJA ., DR MCCANN Consulting Unavailable TONJA ., DR MCCANN Attending Unavailable LULY ., DR MCCANN Admitting Unavailable CATHRYN, DR FLACO Ryan Consulting Unavailable Siobhan Evangelista MD Unavailable Siobhan Evangelista MD Unavailable Siobhan Evangelista MD Primary Care Provider Siobhan Evangelista MD Unavailable Siobhan Evangelista MD Primary Care Provider [phone] Siobhan Evangelista MD Unavailable Siobhan Evangelista MD Primary Care Provider [phone] Irina Finley DO Unavailable [phone] Flaco Koo Attending Provider Flaco Koo Attending Unavailable Flaco Koo Admitting Unavailable Les HE Attending Unavailable Siobhan Evangelista MD Primary Care Provider [phone] MARIO FIGUEROA Attending Unavailable SIOBHAN EVANGELISTA Referring Unavailable SIOBHAN EVANGELISTA Primary Care Unavailable CRYS OGLESBY Referring Unavailable CRYS OGLESBY Primary Care Unavailable CRYS OGLESBY Referring Unavailable CRYS OGLESBY Primary Care Unavailable CRYS OGLESBY Referring Unavailable CRYS OGLESBY Primary Care Unavailable CRYS OGLESBY Referring Unavailable RENYCRYS VERDIN Primary Care Unavailable RCYS OGLESBY Referring Unavailable RENYCRYS VERDIN Primary Care Unavailable CRYS OGLESBY Referring Unavailable CRYS OGLESBY Primary Care Unavailable JANIS HOWELL Attending Unavailable SIOBHAN EVANGELISTA Referring Unavailable SIOBHAN EVANGELISTA Primary Care Unavailable Siobhan Evangelista MD Primary Care Provider [phone] Siobhan Evangelista MD Primary Care Provider [phone] LORENZA DUNCAN Attending Unavailabl e SIOBHAN EVANGELISTA Referring Unavailable SIOBHAN EVANGELISTA Primary Care Unavailable SIOBHAN EVANGELISTA Referring Unavailable HOY, SIOBHAN M Primary Care Unavailable PEPE RICHMOND Admitting Unavailable PEPE RICHMOND Attending Unavailable RICHMONDPEPE Referring Unavailable HOY, SIOBHAN M Primary Care Unavailable HOY, SIOBHAN M Referring Unavailable HOY, SIOBHAN M Primary Care Unavailable LORENZA DUNCAN Attending Unavailabl e HOY, SIOBHAN M Referring Unavailable HOY, SIOBHAN M Primary Care Unavailable HOY, SIOBHAN M Referring Unavailable HOY, SIOBHAN M Primary Care Unavailable HOY, SIOBHAN M Referring Unavailable HOY, SIOBHAN M Primary Care Unavailable HOY, SIOBHAN M Referring Unavailable HOY, SIOBHAN M Primary Care Unavailable HOY, SIOBHAN M Referring Unavailable HOY, SIOBHAN M Primary Care Unavailable HOY, SIOBHAN M Primary Care Unavailable SHARLENE XIAO Attending Unavailable HOY, SIOBHAN M Primary Care Unavailable Luly Siobhan WELSH Primary Care Provider [phone] BROCK WANG Attending Unavailable SELF Referring Unavailable HOY, SIOBHAN M Primary Care Unavailable IRINA FINLEY Referring UnavailIRINA Boo Attending Unavailabl e HOY, SIOBHAN M Primary Care Unavailable HOY, SIOBHAN M Primary Care Unavailable IRINA FINLEY Referring UnavailCHRIS Copeland Attending Unavailable HEIDI CASIANO Referring Unavailable HOY, SIOBHAN M Primary Care Unavailable HEIDI CASIANO Attending Unavailable HOY, SIOBHAN M Primary Care Unavailable HARI PEREZ Attending Unavailable HARI PEREZ Attending Unavailable Irina Finley DO Unavailable [phone] Allergies Allergy Classification Reported Allergen(s) Allergy Type Date of Onset Reaction(s) Facility (3 sources) Sulfamethoxazole / Trimethoprim; Translations: [Bactrim] Drug Allergy 11-26-19 16 [facility] Repository (1 source) Sulfonamides (Antibiotic); Translations: [sulfa drugs] Propensity to adverse reactions to drug (disorder) [facility] Repository (20 sources) Sulfamethoxazole / Trimethoprim; Translations: [SULFAMETHOXAZOLE-T RIMETHOPRIM] Drug Allergy 02-26-20 16 Hives, Unknown [facility] Work Phone: (20 sources) Sulfonamides (Antibiotic); Translations: [SULFA (SULFONAMIDE ANTIBIOTICS)] Drug Allergy 02-26-20 16 [facility] Work Phone: (4 sources) Sulfamethoxazole; Translations: [sulfamethoxazole] Drug Allergy 12-12-19 [facility] (4 sources) Trimethoprim; Translations: [trimethoprim] Drug Allergy 12-12-19 [facility] (20 sources) Adhesive Tape-Silicones; Translations: [ADHESIVE TAPE-SILICONES] Drug Intolerance 01-23-20 Rash [facility] (1 source) Desonide Drug Allergy 11-04-19 19 [facility] Repository (20 sources) Morphine; Translations: [MORPHINE] Drug Allergy 08-04-19 23 Other: See Comments, Palpitations, Unknown [facility] (1 source) Sulfonamides (Antibiotic) Drug allergy (disorder) 01-22-20 [facility] Repository (10 sources) Cephalexin; Translations: [CEPHALEXIN] Drug Allergy 05-17-19 [facility] [employer] (6 sources) Wound Dressing Adhesive Drug Intolerance 01-23-20 [facility] Medications Current Medications Medication Drug Class(es) Dates Sig (Normalized) Sig (Original) acetaminophen 325 mg / oxyCODONE hydrochloride 5 mg oral tablet (7 sources) Opioid Agonist Start: 05-11-2024 take 1 tablet by mouth every six hours as needed oxyCODONE-acetami nophen (PERCOCET) 5-325 mg per tablet Take 1 tablet by mouth every 6 (six) hours as needed. 05/11/2024 Active atomoxetine 40 mg oral capsule (20 sources) Norepinephrine Reuptake Inhibitor Start: 03-14-2024 take 1 capsule by mouth in the morning atomoxetine (STRATTERA) 25 mg capsule Take 1 capsule (25 mg total) by mouth in the morning. Take in the morning. 03/14/2024 Active Start: 01-24-2024 End: 10-03-2024 atomoxetine (Strattera) 40 M G capsule 10/03/2024 Active bisacodyl 5 mg delayed release oral tablet (1 source) Stimulant Laxative Start: 06-20-2024 take 1 tablet by mouth once daily as needed for constipation bisacodyL (DULCOLAX) 5 mg EC tablet Indications: Terminal ileitis with complication (CMS-HCC) , Constipation, unspecified constipation type , RUQ pain , Bilateral lower abdominal pain , Chronic nausea , Early satiety Take 1 tablet (5 mg total) by mouth daily as needed for constipation. 4 tablet 06/20/2024 Active Start: 06-20-2024 take 1 tablet by nita th once daily as needed for constipation bisacodyL (DULCOLAX) 5 mg EC tablet Indications: Terminal ileitis with complication (CMS-HCC) , Constipation, unspecified constipation type , RUQ pain , Bilateral lower abdominal pain , Chronic nausea , Early satiety Take 1 tablet (5 mg total) by mouth daily as needed for constipation. 4 tablet 06/20/2024 Active cephalexin 500 mg oral capsule (4 sources) Cephalosporin Antibacterial Start: 10-03-2024 End: 11-02-2024 take 1 capsule by mouth in the morning cephalexin (Keflex) 500 MG capsule Indications: Dyspareunia in female Take 1 capsule (500 mg) by mouth in the morning and 1 capsule (500 mg) before bedtime. 60 capsule 10/03/2024 11/02/2024 Active cetirizine hydrochloride 10 mg oral capsule (1 source) Histamine-1 Receptor Antagonist End: 06-03-2023 take 1 capsule by mouth once daily Cetirizine (ZYRTEC) 10 mg cap Take 10 mg by mouth once daily. 0 06/03/2023 Discontinued (Course of therapy completed) Comment on above: Take 10 mg by mouth once daily. ciprofloxacin 500 mg oral tablet (4 sources) Quinolone Antimicrobial Start: 05-11-2024 take 1 tablet by mouth in the morning, then take 1 tablet by mouth at bedtime ciprofloxacin HCl (CIPRO) 500 mg tablet Take 1 tablet (500 mg total) by mouth in the morning and 1 tablet (500 mg total) before bedtime. 05/11/2024 Active cobamamide 0.1 mg / vitamin b12 5 mg sublingual tablet (7 sources) Vitamin B12 cyanocobalamin-c ob amamide 5,000-100 mcg lozenge Dissolve in the mouth daily. Active cyanocobalamin/junior mamide (B12 SUBLINGUAL) (18 sources) cyanocobalamin/c ob amamide (B12 SUBLINGUAL) Dissolve under the tongue. Active cyanocobalamin/c obamamide (B12 SUBLINGUAL) Dissolve under the tongue. 0 Active 168 hr estradiol 0.52702 mg/hr transdermal system (5 sources) Estrogen Start: 10-03-2024 End: 10-03-2025 estradiol (Climara) 0.075 MG/24HR Indications: Dyspareunia in female Place 1 patch over 7 days on the skin 1 (one) time per week 12 patch 3 10/03/2024 10/03/2025 Active 1.5 ml fremanezumab-vfrm 150 mg/ml auto-injector (3 sources) Start: 09-28-2024 End: 09-28-2025 inject 1.5 mL by subcutaneous injection every month fremanezumab-vfrm subcutaneus auto-injector 225 mg/1.5 mL (AJOVY) Indications: Chiari I malformation (HCC) , Intractable migraine without aura and without status migrainosus Inject 1.5 mL subcutaneously once every month. Do not shake. 1.5 mL 09/28/2024 09/28/2025 Active gabapentin 300 mg oral capsule (20 sources) Anti-epileptic Agent Start: 12-12-2021 take 1 capsule by mouth three times daily Gabapentin 300 mg Capsule Active 300 MG PO Three times daily December 11, 2021 11:00pm Comment on above: Take 300 mg by mouth three times daily. hydrocortisone 25 mg/ml topical cream (1 source) Corticosteroid Start: 07-20-2024 hydrocortisone (ANUSOL-HC) 2.5 % rectal cream Indications: Internal hemorrhoid Insert 1 Application into the rectum 4 (four) times a day as needed for hemorrhoids (rectal discomfort). 30 g 5 07/20/2024 Active Start: 07-20-2024 hydrocortisone (ANUSOL-HC) 2.5 % rectal cream Indications: Internal hemorrhoid Insert 1 Application into the rectum 4 (four) times a day as needed for hemorrhoids (rectal discomfort). 30 g 5 07/20/2024 Active hyoscyamine sulfate 0.125 mg oral tablet (7 sources) Start: 02-15-2024 hyoscyamine (ANASPAZ,LEVSIN) 0.125 mg tablet every 4 (four) hours as needed. 02/15/2024 Active iv contrast (will be provided with radiology test) (6 sources) Start: 02-07-2024 End: 02-08-2024 inject 1 dose intravenously once iv contrast [...] in the MR contrast administration guidelines link linaclotide 0.145 mg oral capsule (3 sources) Guanylate Cyclase-C Agonist Start: 07-21-19 take 1 capsule by mouth in the morning linaCLOtide (LINZESS) 145 mcg capsule Indications: Chronic constipation Take 1 capsule (145 mcg total) by mouth in the morning. 16 capsule 07/20/2024 Active Start: 07-10-2024 take 1 capsule by [facility] in the morning linaCLOtide (LINZESS) 145 mcg capsule Indications: Constipation, unspecified constipation type Take 1 capsule (145 mcg total) by mouth in the morning. 16 capsule 07/10/2024 Active Methylcobalamin (B12) 5000 MCG sublingual tablet (2 sources) End: 10-03-2024 Methylcobalamin (B12) [address] under the tongue 10/03/2024 Discontinued 24 hr metoprolol succinate 25 mg extended release oral tablet (11 sources) beta-Adrenergic Shilpi Start: 12-12-2021 End: 02-16-2022 take 1 tablet by mouth once daily Metoprolol Succinate 25 mg Tablet Extended Release 24 Hr Active 25 MG PO Daily December 11, 2021 11:00pm Comment on above: Take 25 mg by mouth once daily. metroNIDAZOLE 500 mg oral tablet (4 sources) Nitroimidazole Antimicrobial Start: 10-09-2022 take 1 tablet by mouth every twelve hours metroNIDAZOLE (FLAGYL) 500 mg tablet 1 tablet Orally every 12 hours 10/09/2022 Active Start: 10-09-2022 End: 08-17-2023 take 1 tablet by mouth three times daily metroNIDAZOLE (FLAGYL) 500 mg tablet 1 tablet Orally Three times a day for 10 0 10/09/2022 08/17/2023 Discontinued (Discontinued by Patient) Mrflv-8-ZKR-EPA-Fish Oil (FI SH OIL) 1,000 mg (120 mg-180 mg) cap (18 sources) Start: 04-23-2023 Lruyc-1-IVA-EP A-Fish Oil (FISH OIL) 1,000 mg (120 mg-180 mg) cap 04/23/2023 Active Start: 04-23-2023 Mwclq-9-HMH-EP A-Fish Oil (FISH OIL) 1,000 mg (120 mg-180 mg) cap ondansetron 4 mg disintegrating oral tablet (15 sources) Serotonin-3 Receptor Antagonist Start: 01-19-2023 take 1 tablet by mouth every eight hours as needed ondansetron orally disintegrating (ZOFRAN ODT) 4 mg disintegrating tablet Take 4 mg by mouth every 8 hours as needed for nausea/vomiting. 05/01/2024 Active OXcarbazepine 150 mg oral tablet (20 sources) Anti-epileptic Agent Start: 12-12-2021 take 1 tablet by mouth twice daily Oxcarbazepine 150 mg Tablet Active 150 MG PO Twice daily 60 December 11, 2021 11:00pm Start: 12-11-2021 End: 12-12-2021 take 1 tablet by mouth twice daily Oxcarbazepine 300 mg tablet Discontinued 300 MG PO Twice daily December 10, 2021 11:00pm December 12, 2021 2:44pm End: 05-29-2022 take 2 tablets by mouth twice daily OXcarbazepine (TRILEPTAL) 150 mg tablet Take 300 mg by mouth twice daily. 0 05/29/2022 Discontinued (Course of therapy completed) Comment on above: Take 150 mg by mouth twice daily. Take 300 mg by mouth twice daily. pantoprazole 40 mg delayed release oral tablet (20 sources) Proton Pump Inhibitor Start: 08-18-19 take 1 tablet by mouth once daily Pantoprazole 40 mg tablet,delayed release (DR/EC) Active 40 MG PO Daily December 10, 2021 11:00pm Comment on above: Take 40 mg by mouth once daily. phenazopyridine hydrochloride 200 mg oral tablet (6 sources) Start: 03-23-20 phenazopyridine (PYRIDIUM) 200 mg tablet 3 (three) times a day. 03/23/2024 Active polyethylene glycol 3350 817565 mg / potassium chloride 2970 mg / sodium bicarbonate 6740 mg / sodium chloride 5860 mg / sodium sulfate 40855 mg powder for oral solution (1 source) Osmotic Laxative Start: 06-21-19 25 polyethylene glycol (GoLYTELY) 236-22.74-6.74 -5.86 gram solution Indications: Terminal ileitis with complication (CMS-HCC) , Constipation, unspecified constipation type , RUQ pain , Bilateral lower abdominal pain , Chronic nausea , Early satiety Starting at noon on day prior to procedure, drink 8 ounces every 30 minutes until all gone or stools are clear. May add flavor packet. 4000 mL 06/20/2024 Active Start: 06-20-2024 polyethylene g lycol (GoLYTELY) 236-22.74-6.74 -5.86 gram solution Indications: Terminal ileitis with complication (CMS-HCC) , Constipation, unspecified constipation type , RUQ pain , Bilateral lower abdominal pain , Chronic nausea , Early satiety Starting at noon on day prior to procedure, drink 8 ounces every 30 minutes until all gone or stools are clear. May add flavor packet. 4000 mL 06/20/2024 Active progesterone 100 mg oral capsule (5 sources) Progesterone Start: 10-03-2024 End: 10-03-2025 take 1 capsule by mouth once daily progesterone (Prometrium) 100 MG capsule Indications: Dyspareunia in female Take 1 capsule (100 mg) by mouth Daily 30 capsule 10/03/2024 10/03/2025 Active promethazine hydrochloride 25 mg oral tablet (6 sources) Phenothiazine Start: 05-17-2024 take 1 tablet by mouth every six hours as needed for nausea and vomiting promethazine (PHENERGAN) 25 mg tablet Take 1 tablet (25 mg total) by mouth every 6 (six) hours as needed for nausea or vomiting. 15 tablet 05/17/2024 Active 24 hr propranolol hydrochloride 60 mg extended release oral capsule (20 sources) beta-Adrenergic Shilpi Start: 10-11-2023 End: 06-12-2024 take 1 capsule by mouth once daily propranolol ER (INDERAL LA) 60 mg 24 hr capsule TAKE 1 CAPSULE BY MOUTH EVERY DAY 90 capsule 2 06/12/2024 Active Start: 07-04-2023 take 1 capsule by mo ut every twenty-four hours in the morning propranolol LA (Inderal LA) 60 MG 24 hr capsule Take 60 mg by mouth in the morning. 07/04/2023 Active Start: 05-03-2023 End: 10-02-2023 take 1 capsule by mouth once daily propranolol ER (IND ERAL LA) 60 mg 24 hr capsule Take 1 capsule by mouth once daily. 30 capsule 2 07/04/2023 10/02/2023 Active Comment on above: Take 1 capsule by mo [facility] once daily. rizatriptan 5 mg oral tablet (1 source) Serotonin-1b and Serotonin-1d Receptor Agonist Start: End: 4 take 1 tablet by mouth every two [...] (20 sources) Central alpha-2 Adrenergic Agonist Start: 2 End: 5 tiZANidine (ZANAFLEX) 4 mg tablet Take 1 tablet (4 mg total) by mouth. Taking 2 tablets qd 01/12/2022 Active Comment on above: TAKE 1/2 TO 1 (ONE-H RUBY TO ONE) TABLET BY MOUTH EVERY DAY AT BEDTIME FOR 30 DAYS Take 4 mg by mouth d aily at bedtime. ubidecarenone 30 mg oral capsule (2 sources) End: 5 coenzyme Q-10 30 MG capsule Take by mouth 10/03/2024 Discontinued ubidecarenone 100 mg / vitamin e 5 unt oral capsule (5 sources) coenzyme Q-10 10 0 MG capsule Active ubiquinol (20 sources) COQ10, UBIQUINOL , ORAL Take by mouth. Active COQ10, UBIQUINOL , ORAL Take by mouth. 0 Active vitamin b12 5 mg sublingual tablet (5 sources) Vitamin B12 take 1 tablet by mouth in the morning Cyanocobalamin (B-12) 5000 MCG sublingual tablet Take by mouth in the morning. Active zinc acetate 50 mg oral capsule (1 source) End: 4 Zinc Acetate, Oral, 50 mg (zinc) cap [...] 1 tablet by mouth every six hours as needed for pain Hydrocodone-Acetamino phen 5-325 mg Tablet Discontinued 1 TAB PO Q6H as needed for Pain December 10, 2021 11:00pm January 21, 2022 4:22pm End: 05-29-2022 take 1 tablet by mouth [...] tablet (4 sources) Carbonic Anhydrase Inhibitor Start: End: take 1 tablet by mouth twice daily, then take 2 tablets by mouth twice daily acetaZOLAMIDE (DIAMOX) 250 mg tablet Take 1 tablet by mouth twice daily for 14 days, THEN 2 tablets twice daily. 148 tablet 2 05/29/2022 Active Comment on above: Take 1 tablet by nita th twice daily for 14 days, THEN 2 tablets twice daily. aspirin 81 mg delayed release oral tablet (4 sources) Platelet Aggregation Inhibitor, Nonsteroidal Anti-inflammatory Drug End: take 1 tablet by mouth in the morning aspirin 81 mg Take 1 tablet (81 mg total) by mouth in the morning. 30 tablet 11 05/17/2024 Discontinued (Therapy completed) 24 hr buPROPion hydrochloride 150 mg extended release oral tablet (14 sources) Aminoketone End: take 1 tablet by mouth once daily buPROPion XL (WELLBUTRIN XL) 150 mg 24 hr tablet Take 150 mg by mouth once daily. 0 05/29/2022 Discontinued (Course of therapy completed) Comment on above: Take 150 mg by mouth once daily. diphenhydrAMINE hydrochloride 25 mg oral capsule (4 sources) Histamine-1 Receptor Antagonist End: take 2 capsules by mouth every six hours as needed diphenhydrAMINE (BENADRYL) 25 mg capsule Take 2 capsules (50 mg total) by mouth every 6 (six) hours as needed for itching. 05/17/2024 Discontinued (Therapy completed) estrogens, conjugated (fpc) 1.25 mg oral tablet (20 sources) Estrogen Start: End: take 1 tablet by mouth once daily estrogens, conjugated, (Premarin) 1.25 MG tablet Indications: Dyspareunia in female , Menopausal symptoms Take 1 tablet (1.25 mg) by mouth Daily 90 tablet 3 02/15/2024 11/01/2024 Discontinued Start: 01-20-2023 End: 02-02-2024 take 1 tablet by mouth once daily in the morning estrogens conjugated (PREMARIN) 0.625 mg tablet Take 1 tablet by mouth every morning. 01/20/2023 02/02/2024 Discontinued (Discontinued by Patient) take 1 tablet by nita th once daily PREMARIN 0.9 mg tablet Take 0.9 mg by mouth once daily. Active estrogens, conju gated, (PREMARIN) 0.625 mg tablet Take 0.9 mg by mouth in the morning. Active Comment on above: Take 1 tablet by nita th every morning. Ethinyl Estradiol / norgestimate (11 sources) Progestin, Estrogen Start: 9 End: 2 take 1 tablet by mouth once daily Norgestimate-Ethinyl Estradiol 0.18/0.215/0.25 mg-25 mcg Take 1 tablet by mouth once daily. 0 07/14/2018 12/30/2021 Discontinued (Other) Start: 07-14-2018 take 1 tablet by nita th once daily Norgestimate-Ethinyl Estradiol 0.18/0.215/0.25 mg-25 mcg Take 1 tablet by mouth once daily. 0 07/14/2018 Active End: 10-03-2024 norgestimate-ethinyl estradi ol (Ortho Tri-Cyclen, 28,) 0.18/0.215/0.25 MG-35 MCG tablet 1 (one) time each day at the same time. 10/03/2024 Discontinued (Therapy completed) norgestimate-eth inyl estradiol (Ortho Tri-Cyclen, 28,) 0.18/0.215/0.25 MG-35 MCG tablet 1 (one) time each day at the same time. Active Comment on above: Take 1 tablet [...] ACID ORAL Take by mouth. 0 Active ivabradine 5 mg oral tablet (18 sources) Hyperpolarization-activated Cyclic Nucleotide-gated Channel Shilpi Start: 02-06-2022 take 1 tablet by mouth twice daily at bedtime CORLANOR 5 mg tablet TAKE 1 TABLET BY MOUTH TWICE DAILY IN THE MORNING AND BEFORE BEDTIME 0 02/06/2022 Active Comment on above: TAKE 1 TABLET BY MOUTH TWICE DAILY IN TH E MORNING AND BEFORE BEDTIME Magnesium (7 sources) End: 12-30-2021 MAGNESIUM ORAL Take 120 mg by mouth. 0 12/30/2021 Discontinued MAGNESIUM ORAL T eufemia 120 mg by mouth. 0 Active Comment on above: Take 120 mg by mouth . methocarbamol 500 mg oral tablet (19 sources) Muscle Relaxant Start: 2023 End: 2024 take 1 tablet by mouth every twelve hours as needed methocarbamol (ROBAXIN) 500 mg tablet Take 1 tablet by mouth two times a day as needed. 45 tablet 2 05/03/2023 09/28/2024 Discontinued Comment on above: Take 1 tablet by nita th two times a day as needed. methylPREDNISolone 4 mg oral tablet (4 sources) Corticosteroid Start: 2023 End: 2024 take 1 tablet by mouth in the morning methylPREDNISolone (MEDROL, JAY,) 4 mg tablet Take 1 tablet (4 mg total) by mouth in the morning. follow package directions. 21 tablet 09/01/2023 05/17/2024 Discontinued (Therapy completed) midodrine hydrochloride 2.5 mg oral tablet (10 sources) alpha-Adrenergic Agonist Start: 2022 End: 2024 take 1 tablet by mouth three times daily as needed midodrine (PROAMATINE) 2.5 mg tablet Take 1 tablet (2.5 mg total) by mouth 3 (three) times a day as needed (For SBP 270 tablet 2 02/02/2023 05/17/2024 Discontinued (Therapy completed) End: 02-16-2022 take 1 tablet by mouth three times daily midodrine (PROAMATINE) 2.5 mg tablet Take 2.5 mg by mouth three times daily. 0 02/16/2022 Discontinued (Course of therapy completed) Comment on above: Take 2.5 mg by mouth three times daily. Take 2.5 mg by mouth as directed. When SBP <100 naratriptan 2.5 mg oral tablet (4 sources) Serotonin-1b and Serotonin-1d Receptor Agonist Start: End: take 1 tablet by mouth every twenty-four hours as needed for headache naratriptan (AMERGE) 2.5 mg tablet Indications: Intractable migraine without aura and without status migrainosus Take 1 tablet by mouth as needed for migraine headache (see administration instructions). TAKE ONE(1) TABLET AT THE ONSET OF HEADACHE; IF HEADACHE RETURNS OR DOES NOT FULLY RESOLVE, THE DOSE MAY BE REPEATED AFTER 4 HOURS; DO NOT EXCEED FIVE(5) MG IN 24 HOURS. 9 tablet 11 06/28/2024 09/28/2024 Discontinued nortriptyline 10 mg oral capsule (8 sources) Tricyclic Antidepressant Start: End: take 1 capsule by mouth once daily at bedtime nortriptyline (PAMELOR) 10 mg capsule Indications: Intractable migraine without aura and without status migrainosus Take 1 capsule by mouth daily at bedtime. 30 capsule 2 06/28/2024 09/28/2024 Discontinued omeprazole 40 mg delayed release oral capsule (5 sources) Proton Pump Inhibitor Start: End: take 1 capsule by mouth in the morning omeprazole (PriLOSEC) 40 mg capsule Take 1 capsule (40 mg total) by mouth in the morning. 01/25/2022 05/17/2024 Discontinued (Therapy completed) PROGESTERONE, BULK, MISC (4 sources) End: PROGESTERONE, BULK, MISC by miscellaneous route. 05/17/2024 Discontinued (Therapy completed) PROGESTERONE, BU LK, MISC by miscellaneous route. Active rimegepant 75 mg disintegrating oral tablet (20 sources) Start: 12-26-2021 End: 05-17-2024 take 1 tablet by mouth once daily as needed NURTEC ODT 75 mg disintegrating tablet Take 75 mg by mouth once daily as needed (Migraines). 0 12/26/2021 Active Comment on above: DISSOLVE 1 TABLET BY MOUTH ONCE DAILY Take 75 mg by mouth once daily as needed (Migraines). sertraline 50 mg oral tablet (8 sources) Serotonin Reuptake Inhibitor Start: 06-30-2019 End: 12-30-2021 sertraline (ZOLOFT) 50 mg tablet Take 75 mg by mouth q 12 HR. 0 06/30/2019 12/30/2021 Discontinued Comment on above: Take 75 mg by mouth q 12 HR. tamsulosin hydrochloride 0.4 mg oral capsule (5 sources) alpha-Adrenergic Shilpi Start: 06-20-2018 tamsulosin ER (FLOMAX) 0.4 mg Take 0.4 mg by mouth as needed. 0 06/20/2018 Active Comment on above: Take 0.4 mg by mouth as needed. topiramate 25 mg oral tablet (5 sources) Start: 08-19-2021 take 1 tablet by mouth twice daily topiramate (TOPAMAX) 25 mg tablet Take 25 mg by mouth twice daily. 0 08/19/2021 Active Comment on above: Take 25 mg by mouth twice daily. traZODone hydrochloride 100 mg oral tablet (8 sources) Serotonin Reuptake Inhibitor Start: 09-05-2019 End: 12-30-2021 traZODone (DESYREL) 100 mg tablet Take 50 mg by mouth once daily. SHE TAKES HALF A TABLET DAILY 0 09/05/2019 12/30/2021 Discontinued (Other) Comment on above: Take 50 mg by mouth once daily. SHE TAKES HALF A TABLET DAILY triamcinolone acetonide 5 mg/ml topical cream (4 sources) Corticosteroid Start: 10-16-2022 End: 05-17-2024 triamcinolone (KENALOG) 0.5 % cream Indications: Allergic contact dermatitis due to adhesives Apply 1 Application topically in the morning and 1 Application before bedtime. 30 g 10/16/2022 05/17/2024 Discontinued (Therapy completed) Problems Active Problems Problem Classification Problem Date Documented Da te Episodic/Chronic Abdominal pain (16 sources) Right upper quadrant pain; Translations: [Right upper quadrant pain] Onset: 02-14-2024 05-18-2024 Episodic Anxiety disorders (18 sources) Mixed anxiety and depressive disorder; Translations: [Other specified anxiety disorders] Onset: 07-25-2019 08-04-2023 Chronic Cardiac dysrhythmias (20 sources) Postural orthostatic tachycardia syndrome ; Translations: [POTS (postural orthostatic tachycardia syndrome)] Onset: 02-04-2022 Chronic Conditions associated with dizziness or vertigo (2 sources) Orthostatic hypotension; Translations: [Dizziness and giddiness] Episodic Congestive heart failure; nonhypertensive (1 source) Chronic systolic heart failure; Translations: [Chronic systolic (congestive) heart failure] 02-10-2023 Chronic Disorders of lipid metabolism (20 sources) Hyperlipidemia; Translations: [Hyperlipidemia, unspecified] Onset: 06-28-2022 02-10-2023 Chronic Epilepsy; convulsions (1 source) Seizure; Translations: [Unspecified convulsions] Episodic Essential hypertension (5 sources) Elevated blood pressure; Translations: [Essential (primary) hypertension] 12-11-2021 Chronic Comment on above: Problem List clean-u p per request of Phys. EHR Cmte Headache; including migraine (20 sources) Refractory migraine with aura; Translations: [Migraine with aura, intractable, without status migrainosus] Onset: 08-06-2021 Chronic Headache; including migraine (4 sources) Headache; Translations: [Fnol-XNATP-08 syndrome manifesting as chronic headache] Episodic Hemorrhoids (2 sources) Internal hemorrhoids; Translations: [Other hemorrhoids] Onset: 07-20-2024 07-20-2024 Episodic Malaise and fatigue (1 source) Fatigue; Translations: [Chronic fatigue, unspecified] 02-26-2023 Chronic Malaise and fatigue (2 sources) Fatigue; Translations: [Other post infection and related fatigue syndromes] 08-17-2023 Episodic Nausea and vomiting (6 sources) Nausea and vomiting; Translations: [Nausea with vomiting, unspecified] Onset: 06-20-2024 05-17-2024 Episodic Nervous system congenital anomalies (20 sources) Chiari malformation; Translations: [Arnold-Chiari syndrome without spina bifida or hydrocephalus] Onset: 02-10-2023 Chronic Noninfectious gastroenteritis (1 source) Colitis; Translations: [Noninfective gastroenteritis and colitis, unspecified] 05-18-2024 Episodic Nonmalignant breast conditions (1 source) Unspecified lump [...] Translations: [UNSPECIFIED DYSPAREUNIA] Onset: 06-03-2022 Chronic Other female genital disorders (9 sources) Pain in female genitalia on intercourse; Translations: [Unspecified dyspareunia] Onset: 10-05-2022 10-05-2022 Chronic Other gastrointestinal disorders (1 source) Irritable bowel syndrome characterized by constipation; Translations: [Irritable bowel syndrome with constipation] 02-26-2023 Chronic Other gastrointestinal disorders (1 source) Dysphagia; Translations: [Dysphagia, unspecified] Episodic Other gastrointestinal disorders (6 sources) Constipation; Translations: [Constipation, unspecified] Onset: 06-20-2024 05-17-2024 Episodic Other gastrointestinal disorders (1 source) Chronic constipation; Translations: [Other constipation] 07-20-2024 Episodic Other gastrointestinal disorders (1 source) Other constipation; Translations: [Other constipation] Onset: 07-20-2024 Episodic Other gastrointestinal disorders (1 source) Constipation, unspecified; Translations: [Constipation, unspecified] Onset: 06-20-2024 Episodic Other hereditary and degenerative nervous system conditions (1 source) Functional movement disorder; Translations: [Extrapyramidal and movement disorder, unspecified] Chronic Other infections; including parasitic (1 source) Late effects of other and unspecified infectious and parasitic diseases; Translations: [Post-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 (PASC)] 02-26-2023 Chronic Other infections; including parasitic (20 sources) Post-viral disorder; Translations: [Post-COVID syndrome] Onset: 04-21-2023 08-17-2023 Chronic Other liver diseases (1 source) ALT (SGPT) level raised; Translations: [Elevated ALT measurement] 07-20-2024 Episodic Other lower respiratory disease (6 sources) Dyspnea; Translations: [Shortness of breath] 02-12-2023 Episodic Other lower respiratory disease (1 source) Cough; Translations: [Cough, unspecified type] 02-26-2023 Episodic Other nervous system disorders (1 source) Syringomyelia and syringobulbia; Translations: [Syringomyelia and syringobulbia] Chronic Other nervous system disorders (12 sources) Chiari malformation type I; Translations: [Compression of brain] Chronic Comment on above: Problem List clean-u p per request of Phys. EHR Cmte Other nervous system disorders (5 sources) Compression of brain; Translations: [Compression of brain] Onset: 09-29-2021 12-12-2021 Chronic Other nervous system disorders (4 sources) Syringomyelia and syringobulbia; Translations: [SYRINGOMYELIA AND SYRINGOBULBIA] Onset: 09-12-2021 Chronic Other nervous system disorders (1 source) Poor concentration; Translations: [Attention and concentration deficit] 02-26-2023 Chronic Other nervous system disorders (6 sources) Carpal tunnel syndrome of right wrist; Translations: [Carpal tunnel syndrome, right upper limb] Onset: 10-05-2022 10-05-2022 Chronic Other nervous system disorders (1 source) Tremor; Translations: [Tremor, unspecified] Episodic Other nervous system disorders (3 sources) Impaired cognition; Translations: [Other symptoms and signs involving cognitive functions and awareness] 02-26-2023 Episodic Paralysis (20 sources) Paralysis; Translations: [Paralytic syndrome, unspecified] Onset: 01-22-2022 01-22-2022 Chronic Radha-; endo-; and myocarditis; cardiomyopathy (except that caused by tuberculosis or sexually transmitted disease) (1 source) Cardiomyopathy; Translations: [Other cardiomyopathies] 12-23-2022 Chronic Regional enteritis and ulcerative colitis (5 sources) Terminal ileitis; Translations: [Crohn's disease of small intestine with unspecified complications] Onset: 05-17-2024 06-20-2024 Chronic Residual codes; unclassified (1 source) Memory impairment; Translations: [Other amnesia] 02-26-2023 Episodic Residual codes; unclassified (1 source) Activity intolerance; Translations: [Other general symptoms and signs] 02-26-2023 Episodic Residual codes; unclassified (1 source) Pain, unspecified; Translations: [Pain, unspecified] Onset: 02-22-2024 Episodic Residual codes; unclassified (3 sources) Early satiety; Translations: [Early satiety] 06-20-2024 Episodic Residual codes; unclassified (1 source) Early satiety; Translations: [Early satiety] Onset: 06-20-2024 Episodic Spinal cord injury (20 sources) Central cord syndrome; Translations: [Central cord syndrome at unspecified level of cervical spinal cord, initial encounter] Onset: 08-04-2023 01-22-2022 Chronic Comment on above: Problem List clean-u p per request of Phys. EHR Cmte Spondylosis; intervertebral disc disorders; other back problems (1 source) Other cervical disc degeneration at C6-C7 level; Translations: [OTHER CERVICAL DISC DEG C6-C7 LEVEL] Onset: 09-29-2021 Chronic Spondylosis; intervertebral disc disorders; other back problems (4 sources) Cervical spine instability; Translations: [Spinal instabilities, cervical region] Episodic Unclassified (1 source) Elevation of levels of liver transaminase levels; Translations: [Elevation of levels of liver transaminase levels] Onset: 07-20-2024 Unclassified (1 source) Medication Reaction Onset: 07-20-2024 Unclassified (1 source) Terminal ileitis with complication Onset: 06-26-2024 Unclassified (1 source) Bloated Onset: 06-20-2024 Unclassified (1 source) Post-COVID syndrome; Translations: [Post-COVID syndrome] Onset: 02-02-2024 Unclassified (1 source) Other post infection and related fatigue syndromes; Translations: [Other post infection and related fatigue syndromes] Onset: 02-02-2024 Urinary tract infections (1 source) Recurrent urinary tract infection; Translations: [Urinary tract infection, site not specified] 11-01-2024 Episodic Past or Other Problems Problem Classification Problem Date Documented Da te Episodic/Chronic Abdominal hernia (1 source) Ventral hernia without obstruction or gangrene; Translations: [Ventral hernia without obstruction or gangrene] Onset: 02-11-2024 Episodic Calculus of urinary tract (20 sources) Kidney stone; Translations: [Calculus of kidney] Onset: 10-05-2022 08-04-2023 Episodic Cardiac dysrhythmias (20 sources) Sinus tachycardia; Translations: [Tachycardia, unspecified] Onset: 12-11-2021 12-11-2021 Episodic Comment on above: Problem List clean-u p per request of Phys. EHR Cmte Immunizations and screening for infectious disease (2 sources) Encounter for immunization; Translations: [Needs influenza immunization] Onset: 02-16-2024 02-16-2024 Episodic Nonspecific chest pain (20 sources) Chest discomfort; Translations: [Other chest pain] Onset: 04-23-2023 02-26-2023 Episodic Other circulatory disease (18 sources) Elevated blood pressure; Translations: [Elevated blood-pressure reading, without diagnosis of hypertension] Onset: 12-11-2021 08-04-2023 Episodic Other injuries and conditions due to external causes (4 sources) Other injury of unspecified body region, initial encounter; Translations: [OTHER INJURY UNS BODY REGION INIT] Onset: 11-14-2021 Episodic Other lower respiratory disease (1 source) Shortness of breath; Translations: [SOB (shortness of breath)] Onset: 02-02-2024 Episodic Other nervous system disorders (2 sources) Other symptoms and signs involving cognitive functions and awareness; Translations: [Other signs and symptoms involving cognition] Onset: 02-02-2024 02-26-2023 Episodic Other screening for suspected conditions (not mental disorders or infectious disease) (9 sources) Other abnormal and inconclusive findings on diagnostic imaging of breast; Translations: [Abnormal findings on diagnostic imaging of other parts of digestive tract] Onset: 10-05-2022 10-05-2022 Episodic Residual codes; unclassified (20 sources) History of syncope; Translations: [Personal history of other specified conditions] Onset: 06-28-2022 08-04-2023 Episodic Syncope (20 sources) Syncope; Translations: [Syncope and collapse] Onset: 02-10-2023 12-11-2021 Episodic Comment on above: Problem List clean-u p per request of Phys. EHR Cmte Results Test Name Value Interpretation Reference Range Facility ECG 12-LEADon 11-21-2024 [place] [address] Electrocardiograph Report Signed Patient: PASTOR HELLER MR#: [id number] : 1990 Acct:[id number] Age/Sex: 33 / F ADM Date: 11/21/24 Loc: PST Attending Dr: Hari Perez D.O. Ordering Physician: Hari Perez D.O. 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 Measurements Intervals Ranger Rate: 68 P: 61 WV: 155 QRS: 45 QRSD: 82 T: 43 QT: 372 QTc: 396 Interpretive Statements SINUS RHYTHM Normal ECG Compared to ECG 09/23/2016 14:26:32 No significant changes Electronically Signed On 11-21-2024 13:57:31 EDT by PEGGY ROBLES M.D. Dictated By: PEGGY ROBLES Signed By: 11/21/24 1357 DD/ 0946 TD/TT: P D Driver: [facility] Radiology, Radiologpaola schultz MD - 11/21/2024 [facility] [place] [id number] Electrocardiograph Report Signed Patient: PASTOR HELLER MR#: [id number] : 1990 Acct:[id number] Age/Sex: 33 / F ADM Date: 11/21/24 Loc: PST Attending Dr: Hari Perez D.O. Ordering Physician: Hari Perez D.O. 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 Measurements Intervals Ranger Rate: 68 P: 61 WV: 155 QRS: 45 QRSD: 82 T: 43 QT: 372 QTc: 396 Interpretive Statements SINUS RHYTHM Normal ECG Compared to ECG 09/23/2016 14:26:32 No significant changes Electronically Signed On 11-21-2024 13:57:31 EDT by PEGGY ROBLES M.D. Dictated By: PEGGY ROBLES Signed By: 11/21/24 1357 DD/ 0946 TD/TT: P D Driver: [facility] Radiology Study observation (narrative) [facility] ECG 12-LEADOrdered By: Radio logist Radiology on 11-21-2024 [facility] Work Phone: RECURRENT VAGINITIS (HTRX)on 10-04-2024 ATOPOBIUM VAGINAE 17.767 Abnormal [facility] ATOPOBIUM VAGINAE Detected Abnormal [facility] BVAB 2,3 (BACTERIAL VAGINOSIS ASSOCIATED BACTERIA 2, 3); MOBILUNCUS SPP 0 [facility] BVAB 2,3 (BACTERIAL VAGINOSIS ASSOCIATED BACTERIA 2, 3); MOBILUNCUS SPP Not detected [facility] WILFRIDO ALBICANS, PARAPSILOSIS, TROPICALIS 29.053 Abnormal [facility] WILFRIDO ALBICANS, PARAPSILOSIS, TROPICALIS Detected Abnormal [facility] WILFRIDO GLABRATA 0 [facility] WILFRIDO GLABRATA Not detected [facility] WILFRIDO KRUSEI 0 [facility] WILFRIDO KRUSEI Not detected [facility] CHLAMYDIA TRACHOMATIS 0 [facility] CHLAMYDIA TRACHOMATIS Not detected [facility] GARDNERELLA VAGINALIS 0 [facility] GARDNERELLA VAGINALIS Not detected [facility] Interpretation and review of laboratory results Abnormal [facility] MEGASPHAERA (TYPES 1, 2) 0 [facility] MEGASPHAERA (TYPES 1, 2) Not detected [facility] MYCOPLASMA GENITALIUM 0 [facility] MYCOPLASMA GENITALIUM Not detected [facility] NEISSERIA GONORRHOEAE 0 [facility] NEISSERIA GONORRHOEAE Not detected [facility] TRICHOMONAS VAGINALIS 0 [facility] TRICHOMONAS VAGINALIS Not detected [facility] CNPNon 10-03-2024 CNPN Telephone ([facility]) PINAPASTOR ([id number]) 1990 F UPA Date Time Provider Department 10/03/24 CHRIS FAM [facility] During your visit today, we recorded the following information about you: Merrill Valdovinos RN 10/03/2024 12:07 PM Signed Allergies As of Date: 10/03/2024 Noted Allergy Reaction ADHESIVE TAPE-SILICONES 01/22/2022 2 - Rash BACTRIM (SULFAMETHOXAZOLE-TRIMETH*0 11/10/2019 4 - Hives SULFA (SULFONAMIDE ANTIBIOTICS) 11/10/2019 4 - Hives MORPHINE 08/03/2022 14 - Other: See Comments Comments: Tachycardia Date Reviewed: 09/28/2024 Reviewed by: Chris Fam APRN.[facility] - Fully Assessed Reason for Visit: Insurance Authorization [[id number]] Cmt: Zahra Prescriptions as of 10/03/2024 - fremanezumab-vfrm subcutaneus auto-injector 225 mg/1.5 mL (AJOVY) Inject 1.5 mL subcutaneously once every month. Do not shake. - ondansetron orally disintegrating (ZOFRAN ODT) 4 mg disintegrating tablet Take 4 mg by mouth every 8 hours as needed for nausea/vomiting. - propranolol ER (INDERAL LA) 60 mg 24 hr capsule TAKE 1 CAPSULE BY MOUTH EVERY DAY - PREMARIN 0.9 mg tablet Take 0.9 mg by mouth once daily. - atomoxetine (STRATTERA) 40 mg capsule Take 40 mg by mouth once daily. - cyanocobalamin/cobamamide (B12 SUBLINGUAL) Dissolve under the tongue. - COQ10, UBIQUINOL, ORAL Take by mouth. - Zuhay-5-LMT-EPA-Fish Oil (FISH OIL) 1,000 mg (120 mg-180 mg) cap Problem List As Of Date 10/03/2024 Noted Resolved Paralysis (HCC) [G83.9] 01/22/2022 POTS [...] [N20.0] 10/05/2022 Diagnosed: 08/04/2023 Encounter Status:Closed by MERRILL VALDOVINOS on 10/03/24 Normal [facility] Urinalysis macro (dipstick) panel (U)on 10-03-2024 Bilirubin, UA Negative Negative - 4(70) +++ mg/dL [facility] Blood, UA Negative Negative - 50 Devan/mcL [facility] Clarity, UA Clear [facility] Color, UA Yellow [facility] Glucose, UA Negative Negative - 2000(110) ++++ mg/dL [facility] Interpretation and review of laboratory results Normal [facility] Ketones, UA Negative Negative - 160(16) ++++ mg/dL [facility] Leukocytes, UA Negative Negative - 500+++ Tyra/mcL [facility] Nitrite, UA Negative Negative - Positive [facility] pH, UA 7 5 - 9 [facility] Protein, UA Negative Negative - 1999(20) ++++ mg/dL [facility] Spec Grav, UA 1.015 1 - 1.03 [facility] Urobilinogen, UA 0.2 0.2 - 12 mg/dL [facility] MR MRA HEAD WO CONTon 2024 MR MRA HEAD WO CONT MR MRA HEAD WO CONT HISTORY: A 33-year-old female with a history of the Chiari malformation. Intractable migraine headaches without aura. Technique: MR cerebral angiogram is performed by using 3-D nlrh-nf-nseqxn technique. Maximum intensity intensity projection and 3-D [...] Eliceo Flannery MD on 09/15/2024 9:36 AM Normal [facility] ACUTE HEPATITIS PANELon 04- ANTI HCV W/PCR REFLX Non-Reactive Normal NRCT Pr [facility] Comment on above: Result Comment: NEW TEST METHOD NOTE If recent infection suspected, recommend repeat testing (>2 months). Nkpboi-bs-uzatsm ratio is <1.00. Performed By: #### 1 988-5, LIVR, 24280-7, [facility] #### [facility] ([id number]) [address], [address] [place] [address] HEPATITIS A IGM Non-Reactive Normal NRCT [facility] Comment on above: Result Comment: NEW TEST METHOD Performed By: #### 1 988-5, LIVR, 28970-5, P #### [facility] ([id number]) [address], [address] [place] [address] HEPATITIS B CORE IGM Non-Reactive Normal NRCT Pr [facility] Comment on above: Result Comment: NEW TEST METHOD Performed By: #### 1 988-5, LIVR, 89100-1, AHP #### [facility] ([id number]) [address], [address] [place] [address] HEPATITIS B SURF AG Non-Reactive Normal NRCT Pro [facility] Comment on above: Result Comment: NEW TEST METHOD Performed By: #### 1 988-5, LIVR, 72517-0, AHP #### [facility] ([id number]) [address], [address] [place] [address] CRP [Mass/Vol]on 07-20-2024 C REACTIVE PROTEIN 0.2 mg/dL Normal 0.000-0.7 4 4 [facility] Comment on above: Performed By: #### 1 988-5, LIVR, 28179-3, SKYEP #### [facility] ([id number]) [address], [address] [place] [address] ESR Photometric method (Bld) [Velocity]on 07-20-2024 ESR, ERYTHROCYTE SEDIMENTATION RATE 3 mm/h Normal 0-20 [facility] Comment on above: Performed By: #### 1 988-5, LIVR, 27678-3, AHP #### [facility] ([id number]) [address], [address] [place] [address] LIVER PANELon 07-20-2024 Albumin [Mass/Vol] 4.4 g/dL Normal 3.2-5.3 [facility] Comment on above: Performed By: #### 1 988-5, LIVR, 46292-4, AHP #### [facility] ([id number]) [address], [address] [place] [address] ALP [Catalytic activity/Vol] 59 U/L Normal 39-130 [facility] Comment on above: Performed By: #### 1 988-5, LIVR, 11032-8, AHP #### [facility] ([id number]) [address], [address] [place] [address] ALT [Catalytic activity/Vol] 10 U/L Normal 0-31 [facility] Comment on above: Performed By: #### 1 988-5, LIVR, 30945-1, AHP #### [facility] ([id number]) [address], [address] [place] [address] AST [Catalytic activity/Vol] 16 U/L Normal 0-41 [facility] Comment on above: Performed By: #### 1 988-5, LIVR, 85890-8, AHP #### [facility] ([id number]) [address], [address] [place] [address] Bilirubin [Mass/Vol] 0.3 mg/dL Normal 0.3-1.2 [facility] Comment on above: Performed By: #### 1 988-5, LIVR, 12158-0, AHP #### [facility] ([id number]) [address], [address] [place] [address] Bilirubin.direct [Mass/Vol] 0.0 mg/dL Normal 0.0-0.4 [facility] Comment on above: Performed By: #### 1 988-5, LIVR, 31161-4, AHP #### [facility] ([id number]) [address], [address] [place] [address] Protein [Mass/Vol] 7.4 g/dL Normal 6.0-8.0 [facility] Comment on above: Performed By: #### 1 988-5, LIVR, 36912-5, AHP #### [facility] ([id number]) [address], [address] [place] [address] Surgical Pathologyon 025 Surgical Pathology Normal [facility] Comment on above: Result Comment: [facility] [address] [place] [address] Surgical Pathology Consultation Patient Name:PASTOR HELLER:1990 (Age: 33)Gender:FTaken:06/26/2024Reported:06/29/2024Physician(s):RADAMES RICHMOND ([id number])Copy To: Rec. #:[id number]: #[id number] Final Pathologic Diagnosis 1. Duodenum biopsy: Duodenal mucosa with no significant histopathologic changes. No active inflammation, celiac disease, parasites, granuloma or atypia. 2. Gastric biopsy: Gastric mucosa with focal erosion and reactive changes. No active inflammation, intestinal metaplasia or dysplasia. No Helicobacter pylori organisms are seen on routine sections. 3. Random colon biopsy: Colonic mucosa with no significant histopathologic changes. No colitis including microscopic colitis, inflammatory bowel disease, granuloma or dysplasia. Report Electronically Signed Out wak/06/29/2024Carl Chavez MD Interpretation performed at [facility], [address] [place] [address], License number: [id number]. Clinical History Terminal ileitis with complication, constipation, unspecified type, Bilateral lower abdominal pain, RUQ pain, Chronic nausea, early satiety, Part 1; R/O Celiac, Part 2; R/O H. Pylori, Part 3; R/O Microscopic colitis Gross Description 1. Received in formalin labeled SLEEK, duodenum biopsy , are 6 broderick delicate tissue bits 0.3 cm - 0.6 cm. The specimen is filtered and submitted entirely in a single cassette. (1,ns,[id number], m4) SW 2. Received in formalin labeled SLEEK, gastric biopsy , are 4 broderick feathery tissue bits 0.2 cm - 0.4 cm. The specimen is filtered and submitted entirely in a single cassette. (1,ns,S92-56317-0, m4) SW 3. Received in formalin labeled SLEEK, colon, random biopsy , are 7 broderick feathery tissue bits 0.4 cm - 0.6 cm. The specimen is filtered and submitted entirely in a single cassette. (1,ns,F39-50724-2, m4) SW sxw/06/26/2024NSK Specimen(s) Received 1: Duodenum biopsy 2: Gastric biopsy 3: Random colon biopsy Fee Codes(s): 1; 08259 2; 95814 3; 58565 CBC AND AUTO DIFFon 05-17-19 25 ABSOLUTE BASOPHIL 0.1 X10E9/L Normal 0.0-0.2 [facility] Comment on above: Performed By: #### C BCA, HA1C, CMP, 2498-4, 33788-3, THYR, 3051-0, 6476-6, 89907-2, 83413-9, 27792-3, 5193-8 #### [facility] ([id number]) [address] [facility], [address] [address] #### BPAGM #### [facility] ([id number]) [address] [place] [address] 36665 ABSOLUTE NEUTROPHIL 3.9 X10E9/L Normal 1.5-6.6 [facility] Comment on above: Performed By: #### C BCA, HA1C, CMP, 2498-4, 21123-6, THYR, 3051-0, 6476-6, 40601-9, 30757-1, 46261-7, 5193-8 #### [facility] ([id number]) [address] [facility], [address] [place] [address] #### BPAGM #### [facility] ([id number]) [address] [place] [address] 52753 Basophils/100 WBC (Bld) 0.8 % Normal [facility] Comment on above: Performed By: #### C BCA, HA1C, CMP, 2498-4, 26403-5, THYR, 3051-0, 6476-6, 32609-7, 27357-3, 48559-8, 5193-8 #### [facility] ([id number]) [address], [address] [place] [address] #### BPA #### [facility] ([id number]) [address] [place] [address]43 Eosinophils (Bld) [#/Vol] 0.4 10*3/uL Normal 0.0-0.4 [facility] Comment on above: Performed By: #### C BCA, HA1C, CMP, 2498-4, 54828-4, THYR, 3051-0, 6476-6, 01662-6, 89338-1, 47241-1, 5193-8 #### [facility] ([id number]) [address] [facility], [address] [address] #### BPAGM #### [facility] ([id number]) [address] [place] [address] Eosinophils/100 WBC (Bld) 4.9 % Normal [facility] Comment on above: Performed By: #### C BCA, HA1C, CMP, 2498-4, 94247-0, THYR, 3051-0, 6476-6, 87554-4, 95228-4, 39908-2, 5193-8 #### [facility] ([id number]) [address] [address] #### BPAGM #### [facility] ([id number]) [address] [place] [address] Erythrocyte distribution width (RBC) [Ratio] 12.6 % Normal 11.5-15.0 [facility] Comment on above: Performed By: #### C BCA, HA1C, CMP, 2498-4, 38015-5, THYR, 3051-0, 6476-6, 53221-4, 05429-0, 20905-4, 5193-8 #### [facility] ([id number]) [address] [facility], [address] [place] [address] [place] [address] #### BPAGM #### [facility] ([id number]) [address] [place] [address] 11476 Hematocrit (Bld) [Volume fraction] 40.3 % Normal 35-47 [facility] Comment on above: Performed By: #### C BCA, HA1C, CMP, 2498-4, 81210-7, THYR, 3051-0, 6476-6, 16574-1, 44401-7, 77230-8, 5193-8 #### [facility] ([id number]) [address] [facility] [place] [address] #### BPAGM #### [facility] ([id number]) [address] [place] [address]279 Hemoglobin (Bld) [Mass/Vol] 13.6 g/dL Normal 11.7-15.5 [facility] Comment on above: Performed By: #### C BCA, HA1C, CMP, 2498-4, 21775-1, THYR, 3051-0, 6476-6, 41066-3, 92818-9, 62160-2, 5193-8 #### [facility] ([id number]) [address] [facility] [address] [place] [address] #### BPAGM #### [facility] ([id number]) [address] [place] [address]7869 Lymphocytes (Bld) [#/Vol] 2.6 10*3/uL Normal 1.0-3.5 [facility] Comment on above: Performed By: #### C BCA, HA1C, CMP, 2498-4, 74181-3, THYR, 3051-0, 6476-6, 71823-9, 15924-8, 59033-7, 5193-8 #### [facility] ([id number]) [address] [facility] [address] [place] [address] #### BPAGM #### [facility] ([id number]) [address] [place] [address]25 Lymphocytes/100 WBC (Bld) 34.3 % Normal [facility] Comment on above: Performed By: #### C BCA, HA1C, CMP, 2498-4, 02676-1, THYR, 3051-0, 6476-6, 05678-8, 04649-2, 71596-5, 5193-8 #### [facility] ([id number]) [address] [facility], [address] [place] [address] #### BPAGM #### [facility] ([id number]) [address] [place] [address]35 MCH (RBC) [Entitic mass] 30.4 pg Normal 27-34 [facility] Comment on above: Performed By: #### C BCA, HA1C, CMP, 2498-4, 81743-1, THYR, 3051-0, 6476-6, 92381-8, 10719-6, 41865-4, 5193-8 #### [facility] ([id number]) [address] [facility], [address] [place] [address] #### BPAGM #### [facility] ([id number]) [address] [place] [address] MCHC (RBC) [Mass/Vol] 33.6 g/dL Normal 32-36 [facility] Comment on above: Performed By: #### C BCA, HA1C, CMP, 2498-4, 72351-7, THYR, 3051-0, 6476-6, 52891-0, 98824-9, 53281-7, 5193-8 #### [facility] ([id number]) [address] [facility], [address] [place] [address] #### BPAGM #### [facility] ([id number]) [address] [place] [address] MCV (RBC) [Entitic vol] 90 fL Normal 80-100 [facility] Comment on above: Performed By: #### C BCA, HA1C, CMP, 2498-4, 25375-7, THYR, 3051-0, 6476-6, 87901-0, 34062-2, 34666-6, 5193-8 #### [facility] ([id number]) [address] [place] [address], [address] [place], [place] [address] #### BPAGM #### [facility] ([id number]) [address] [place] [address] Monocytes (Bld) [#/Vol] 0.6 10*3/uL Normal 0-0.9 [facility] Comment on above: Performed By: #### C BCA, HA1C, CMP, 2498-4, 10033-9, THYR, 3051-0, 6476-6, 60428-4, 87368-8, 64563-7, 5193-8 #### [facility] ([id number]) [address] [place] [address], [address] [address] #### BPAGM #### [facility] ([id number]) [address] [place] [address]36 Monocytes/100 WBC (Bld) 7.5 % Normal [facility] Comment on above: Performed By: #### C BCA, HA1C, CMP, 2498-4, 19472-4, THYR, 3051-0, 6476-6, 71152-9, 76296-5, 48171-2, 5193-8 #### [facility] ([id number]) [address] [place] [address], [address] [place] [address] #### BPAGM #### [facility] ([id number]) [address] [place] [address] 35067 Neutrophils/100 WBC (Bld) 52.5 % Normal [facility] Comment on above: Performed By: #### C BCA, HA1C, CMP, 2498-4, 60461-9, THYR, 3051-0, 6476-6, 11595-0, 97990-4, 31237-8, 5193-8 #### [facility] ([id number]) [address], [address] [place] [address] #### BPAGM #### [facility] ([id number]) [address] [place] [address] Platelet mean volume (Bld) [Entitic vol] 11.6 fL Normal 7-12 [facility] Comment on above: Performed By: #### C BCA, HA1C, CMP, 2498-4, 09512-9, THYR, 3051-0, 6476-6, 31759-2, 28807-1, 17162-2, 5193-8 #### [facility] ([id number]) [address], [address] [place] [address] #### BPAGM #### [facility] ([id number]) [address] [place] [address] Platelets (Bld) [#/Vol] 247 10*3/uL Normal 150-450 [facility] Comment on above: Performed By: #### C BCA, HA1C, CMP, 2498-4, 40481-5, THYR, 3051-0, 6476-6, 88985-8, 15198-6, 81493-3, 5193-8 #### [facility] ([id number]) [address], [address] [place] [address] #### BPAGM #### [facility] ([id number]) [address] [place] [address] 21082 RBC COUNT 4.46 X10E12/L Normal 3.80-5.20 [facility] Comment on above: Performed By: #### C BCA, HA1C, CMP, 2498-4, 07919-3, THYR, 3051-0, 6476-6, 51751-0, 38914-3, 02909-0, 5193-8 #### [facility] ([id number]) [address], [address] [place] [address] #### BPAGM #### [facility] ([id number]) [address] [place] [address] WBC (Bld) [#/Vol] 7.5 10*3/uL Normal 4.0-11.0 [facility] Comment on above: Performed By: #### C BCA, HA1C, CMP, 2498-4, 04505-3, THYR, 3051-0, 6476-6, 43949-6, 37179-4, 70526-7, 5193-8 #### [facility] ([id number]) [address], [address] [place], [place] [address] #### BPAGM #### [facility] ([id number]) [address] [place] [address] COMPREHENSIVE METABOLIC PANE Kirby 05-17-2024 Albumin [Mass/Vol] 4.7 g/dL Normal 3.2-5.3 [facility] Comment on above: Performed By: #### C BCA, HA1C, CMP, 2498-4, 83718-6, THYR, 3051-0, 6476-6, 80715-9, 98761-8, 61233-1, 5193-8 #### [facility] ([id number]) [address] [facility], [address] [place] [address] #### BPAGM #### [facility] ([id number]) [address] [place] [address]98 ALP [Catalytic activity/Vol] 48 U/L Normal 39-130 [facility] Comment on above: Performed By: #### C BCA, HA1C, CMP, 2498-4, 95069-3, THYR, 3051-0, 6476-6, 07870-7, 78434-2, 83412-6, 5193-8 #### [facility] ([id number]) [address] [place] [address], [address] [place] [address] #### BPAGM #### [facility] ([id number]) [address] [place] [address] 19084 ALT [Catalytic activity/Vol] 32 U/L High 0-31 [facility] Comment on above: Performed By: #### C BCA, HA1C, CMP, 2498-4, 99814-9, THYR, 3051-0, 6476-6, 54810-2, 30973-9, 21313-9, 5193-8 #### [facility] ([id number]) [address] [place] [address], [address] [address] #### BPAGM #### [facility] ([id number]) [address] [place] [address] Anion gap [Moles/Vol] 7 mmol/L Normal 5-15 [facility] Comment on above: Performed By: #### C BCA, HA1C, CMP, 2498-4, 08160-1, THYR, 3051-0, 6476-6, 48731-9, 79451-4, 46061-7, 5193-8 #### [facility] ([id number]) [address] [place] [address], [address] [place] [address] #### BPA #### [facility] ([id number]) [address] [place] [address] AST [Catalytic activity/Vol] 31 U/L Normal 0-41 [facility] Comment on above: Performed By: #### C BCA, HA1C, CMP, 2498-4, 40584-1, THYR, 3051-0, 6476-6, 97679-6, 04211-5, 48363-4, 5193-8 #### [facility] ([id number]) [address], [address] [place] [address] #### BPAGM #### [facility] ([id number]) [address] [place] [address] Bilirubin [Mass/Vol] 0.8 mg/dL Normal 0.3-1.2 [facility] Comment on above: Performed By: #### C BCA, HA1C, CMP, 2498-4, 98799-9, THYR, 3051-0, 6476-6, 74247-8, 41238-6, 03540-2, 5193-8 #### [facility] ([id number]) [address], [address] [place] [address] #### BPAGM #### [facility] ([id number]) [address] [place] [address] Calcium [Mass/Vol] 9.6 mg/dL Normal 8.5-10.5 [facility] Comment on above: Performed By: #### C BCA, HA1C, CMP, 2498-4, 19574-7, THYR, 3051-0, 6476-6, 74235-5, 97375-8, 79301-2, 5193-8 #### [facility] ([id number]) [address], [address] [place] [address] #### BPAGM #### [facility] ([id number]) [address] [place] [address]70 Chloride [Moles/Vol] 100 mmol/L Normal 98-109 [facility] Comment on above: Performed By: #### C BCA, HA1C, CMP, 2498-4, 42702-6, THYR, 3051-0, 6476-6, 48650-2, 98317-1, 12171-2, 5193-8 #### [facility] ([id number]) [address], [address] [place] [address] #### BPAGM #### [facility] ([id number]) [address] [place] [address]150 CO2 [Moles/Vol] 27 mmol/L Normal 22-32 [facility] Comment on above: Performed By: #### C BCA, HA1C, CMP, 2498-4, 37872-5, THYR, 3051-0, 6476-6, 21346-1, 32167-7, 39593-3, 5193-8 #### [facility] ([id number]) [address] [facility], [address] [place] [address] #### BPAGM #### [facility] ([id number]) [address] [place] [address] Creatinine [Mass/Vol] 0.75 mg/dL Normal 0.40-1.00 [facility] Comment on above: Result Comment: METH OD TRACEABLE TO IDMS STANDARD Performed By: #### C BCA, HA1C, CMP, 2498-4, 14730-6, THYR, 3051-0, 6476-6, 84612-7, 93700-9, 08273-4, 5193-8 #### [facility] ([id number]) [address] [facility], [address] [place] [address] #### BPAGM #### [facility] ([id number]) [address] [place] [address]794 eGFR (CKD-EPI) NON-RACE DEPENDENT >90 Normal >59 [facility] Comment on above: Result Comment: Reported eGFR is based on the CKD-EPI 2020 equation that does not use a race coefficient. Performed By: #### C BCA, HA1C, CMP, 2498-4, 32639-4, THYR, 3051-0, 6476-6, 21476-2, 27067-6, 29504-0, 5193-8 #### [facility] ([id number]) [address], [address] [place] [address] #### BPAGM #### [facility] ([id number]) [address] [place] [address]73 Glucose [Mass/Vol] 99 mg/dL Normal 65-99 [facility] Comment on above: Performed By: #### C BCA, HA1C, CMP, 2498-4, 47384-1, THYR, 3051-0, 6476-6, 55410-5, 88679-6, 98911-7, 5193-8 #### [facility] ([id number]) [address] [facility], [address] [place] [address] #### BPAGM #### [facility] ([id number]) [address] [place] [address] Potassium [Moles/Vol] 3.9 mmol/L Normal 3.5-5.0 [facility] Comment on above: Performed By: #### C BCA, HA1C, CMP, 2498-4, 82274-6, THYR, 3051-0, 6476-6, 77926-1, 88624-4, 69058-4, 5193-8 #### [facility] ([id number]) [address] [facility], [address] [place] [address] #### BPAGM #### [facility] ([id number]) [address] [place] [address] Protein [Mass/Vol] 7.8 g/dL Normal 6.0-8.0 [facility] Comment on above: Performed By: #### C BCA, HA1C, CMP, 2498-4, 97024-4, THYR, 3051-0, 6476-6, 48371-7, 18191-7, 93919-7, 5193-8 #### [facility] ([id number]) [address] [facility], [address] [place] [address] #### BPAGM #### [facility] ([id number]) [address] [place] [address] 45784 Sodium [Moles/Vol] 134 mmol/L Normal 134-146 [facility] Comment on above: Performed By: #### C BCA, HA1C, CMP, 2498-4, 55686-9, THYR, 3051-0, 6476-6, 06858-0, 49354-6, 04480-8, 5193-8 #### [facility] ([id number]) [address] [facility], [address] [place] [address] #### BPAGM #### [facility] ([id number]) [address] [place] [address]2671 Urea nitrogen [Mass/Vol] 8 mg/dL Normal 5-23 [facility] Comment on above: Performed By: #### C BCA, HA1C, CMP, 2498-4, 60198-9, THYR, 3051-0, 6476-6, 10807-7, 83579-9, 19328-2, 5193-8 #### [facility] ([id number]) [address] [facility] [address] [place] [address] #### BPAGM #### [facility] ([id number]) [address] [place] [address] ABDOMEN AND PELVIS W CONT on 05-17-2024 CT ABDOMEN AND PELVIS W CONT CT ABDOMEN AND PELVIS W CONT CT ABDOMEN AND PELVIS W CONT: 05/17/2024 PROVIDED HISTORY: * 33 years old Female * Abdominal pain, acute, nonlocalized; RUQ pain, nausea vomiting diarrhea x 10 days, concern for acute samra vs sbo? COMPARISON: 05/03/2020 TECHNIQUE: 1. Multiple axial images of the abdomen and pelvis were obtained following the uneventful administration of intravenous contrast. 2. All CT scans at this facility use dose modulation, iterative reconstruction, and/or weight based dosing when appropriate to reduce radiation dose to as low as reasonably achievable. FINDINGS: LOWER THORAX: No acute process. ABDOMEN/PELVIS: Focal fatty infiltration involving the fissure for ligamentum teres. Otherwise unremarkable for technique. The spleen, kidneys, adrenal glands, and pancreas are within normal limits. Gallbladder is without calcified gallstones. No abdominal aortic aneurysm. No enlarged lymph nodes, free fluid, or free air. Mild bowel wall thickening and perienteric inflammatory changes primarily involving the terminal ileum (coronal series 601, image 35). Increased number of mesenteric and ileocecal lymph nodes, though not definitively enlarged. Mild adjacent mesenteric vascular engorgement. Bowel is otherwise without evidence of obstruction or abnormal dilation. Appendix is unremarkable. Moderate/have colonic stool burden. Distended urinary bladder, otherwise unremarkable for degree of distention. No suspicious osseus lesions. Hysterectomy. IMPRESSION: 1. Constellation of findings suggestive of terminal ileitis (infectious/inflammatory, amongst other etiologies). Correlation with patient history and serology, particularly regarding inflammatory bowel disease, may be of diagnostic value. 2. Nondilated gallbladder without evidence of radiopaque gallstones. Appendix is within normal limits. Finalized by Enrique Mckeon MD on 05/17/2024 5:25 PM Normal [facility] LIPASEon 05-17-2024 Lipase [Catalytic activity/Vol] 31 U/L Normal 17-40 [facility] Comment on above: Performed By: #### C BCA, HA1C, CMP, 2498-4, 87694-7, THYR, 3051-0, 6476-6, 27455-2, 19806-8, 17042-4, 5193-8 #### [facility] ([id number]) [address] [facility], [address] [place] [address] #### BPA #### [facility] ([id number]) [address] [place] [address], [place] [address] LIVER PANELon 05-17-2024 Bilirubin.direct [Mass/Vol] 0.1 mg/dL Normal 0.0-0.4 [facility] Comment on above: Performed By: #### C BCA, HA1C, CMP, 2498-4, 69035-9, THYR, 3051-0, 6476-6, 40382-2, 46654-7, 08104-9, 5193-8 #### [facility] ([id number]) [address], [address] [place] [address] #### BPA #### [facility] ([id number]) [address] [place] [address] URN MACROSCOPIC NURon 2024 BILIRUBIN COURTNEY Negative Normal NEG [facility] Comment on above: Performed By: #### C BCA, HA1C, CMP, 2498-4, 11082-1, THYR, 3051-0, 6476-6, 93031-8, 73357-5, 69154-1, 5193-8 #### [facility] ([id number]) [address] [facility] [address] [place] [address] #### BPAGM #### [facility] ([id number]) [address] [place] [address] BLOOD/HGB COURTNEY Negative Normal NEG [facility] Comment on above: Performed By: #### C BCA, HA1C, CMP, 2498-4, 39258-6, THYR, 3051-0, 6476-6, 41881-7, 76905-2, 72187-3, 5193-8 #### [facility] ([id number]) [address] [facility] [place] [address] #### BPAGM #### [facility] ([id number]) [address] [place] [address] GLUCOSE COURTNEY Negative Normal NEG [facility] Comment on above: Performed By: #### C BCA, HA1C, CMP, 2498-4, 87457-7, THYR, 3051-0, 6476-6, 20115-1, 48670-8, 32413-1, 5193-8 #### [facility] ([id number]) [address], [address] [place] [address] #### BPAGM #### [facility] ([id number]) [address] [place] [address] KETONES COURTNEY Negative Normal NEG [facility] Comment on above: Performed By: #### C BCA, HA1C, CMP, 2498-4, 58965-7, THYR, 3051-0, 6476-6, 14141-8, 10645-5, 96749-9, 5193-8 #### [facility] ([id number]) [address] [facility] [place] [address] #### BPAGM #### [facility] ([id number]) [address] [place] [address]2583 LEUKOCYTE ESTERASE COURTNEY Negative Normal NEG [facility] Comment on above: Performed By: #### C BCA, HA1C, CMP, 2498-4, 96366-6, THYR, 3051-0, 6476-6, 37600-0, 05160-9, 24729-5, 5193-8 #### [facility] ([id number]) [address] [facility] [place] [address] #### BPAGM #### [facility] ([id number]) [address] [place] [address] NITRITE COURTNEY Negative Normal NEG [facility] Comment on above: Performed By: #### C BCA, HA1C, CMP, 2498-4, 94700-0, THYR, 3051-0, 6476-6, 89756-2, 37080-1, 98047-1, 5193-8 #### [facility] ([id number]) [address] [facility] [place] [address] #### BPAGM #### [facility] ([id number]) [address] [place] [address] PH COURTNEY 7.0 Normal 5.0-8.5 [facility] Comment on above: Performed By: #### C BCA, HA1C, CMP, 2498-4, 80751-9, THYR, 3051-0, 6476-6, 07736-5, 09302-3, 03921-7, 5193-8 #### [facility] ([id number]) [address] [facility] [place] [address] #### BPAGM #### [facility] ([id number]) [address] [place] [address] PROTEIN COURTNEY Negative Normal NEG [facility] Comment on above: Performed By: #### C BCA, HA1C, CMP, 2498-4, 65760-0, THYR, 3051-0, 6476-6, 24280-1, 88080-1, 74932-1, 5193-8 #### [facility] ([id number]) [address] [facility] [place] [address] #### BPAGM #### [facility] ([id number]) [address] [place] [address] SPECIFIC GRAVITY COURTNEY 1.010 Normal 1.003-1 .03 5 [facility] Comment on above: Performed By: #### C BCA, HA1C, CMP, 2498-4, 70509-5, THYR, 3051-0, 6476-6, 58257-4, 31853-9, 37451-3, 5193-8 #### [facility] ([id number]) [address] [facility] [place] [address] #### BPAGM #### [facility] ([id number]) [address] [place] [address] UROBILINOGEN COURTNEY 0.2 eu/dL Normal <1.1 [facility] Comment on above: Performed By: #### C BCA, HA1C, CMP, 2498-4, 78525-1, THYR, 3051-0, 6476-6, 53614-3, 43235-3, 70875-3, 5193-8 #### [facility] ([id number]) [address] [facility] [place] [address] #### BPAGM #### [facility] ([id number]) [address] [facility], [place] [address] MAMM SCREENING BILATERAL W 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 BI-RADS: BI-RADS 2 - Benign RECOMMENDATION: Routine screening mammogram at age of 40. Finalized by Feliz Crockett MD on 03/14/2024 9:00 AM 2 d MAMM AT 40 Normal [facility] 02-28-2024 L ------- Specimen: [id number] Received: 02/29/24 Status: BRITANY Chatman Num: [id number] Spec Type: Surgical Subm Dr: Flaco Koo Tissues: A Ganglion Cyst (RIGHT WRIST MASS) Procedures: RYLAND, Gross/Micro L3 Age/ Patient Sex Location Account Attending Physician Pastor Heller 33/F LABELL [id number] Flaco Koo SPEC NUM: [id number] RECD: 02/29/24 STATUS: BRITANY CHATMAN NUM: [id number] SHANNON: 02/28/[address] [facility] [address]: Flaco Koo ENTERED: 02/29/[address] [facility] [address]: Debra,Lab SPEC TYPE: Surgical DEPT: LARS TAYLOR ENTERED BY: [id number] RECV BY: [id number] ORDERED: HE, Gross/Micro L3 ORDERED: HE, Gross/Micro L3 Pathological Diagnosis Ganglion cyst, right wrist, excision: Features consistent with ganglion cyst. Clinical Information Right wrist ganglion cyst Gross Description Part A is received in formalin labeled with the patients name, date of , and right wrist mass is a gomez-white, shaggy strip of fibrous tissue, 2.4 x 0.7 x 0.4 cm. The specimen is longitudinally trisected to reveal gomez-white, dull and uniform cut surfaces. The specimen is entirely submitted in a single cassette. (1, ns, [id number] A) CPT Codes 87676 Specimen: [id number] Received: 02/29/24 Status: BRITANY Chatman Num: [id number] Spec Type: Surgical Subm Dr: Flaco Koo Tissues: A Ganglion Cyst (RIGHT WRIST MASS) Procedures: Gabrielle MARCELINO/Elijah L3 Patient: Pastor Heller [id number] (Continued) Signed (signature on file) Kayy Marie MD 03/01/24 4505 Normal [facility] Delfina 02-18-2024 HUEN Telephone (NEKRISTI) PASTOR HELLER ([id number]) 1990 F [place] Date Time Provider Department [...] Tachycardia Date Reviewed: 02/07/2024 Reviewed by: Brock Wnag PA-C - Fully Assessed Prescriptions as of [...] COQ10, UBIQUINOL, ORAL Take by mouth. - Vffqd-0-JUO-EPA-Fish Oil (FISH OIL) 1,000 mg (120 mg-180 [...] Status:Closed by BROCK WANG on 02/18/[address] [facility] PASTOR HELLER ([id number]) 1990 F [place] Date Time Provider Department 02/18/24 IRINA FINLEY During your visit today, we recorded the following information about you: Noemí Christian 02/18/2024 10:06 AM Signed Request for medical clearance scanned into [employer]. Response to request faxed and confirmation scanned into [employer]. Allergies As of Date: 02/18/2024 Noted [...] COQ10, UBIQUINOL, ORAL Take by mouth. - Eozch-7-UIX-EPA-Fish Oil (FISH OIL) 1,000 mg (120 mg-180 [...] Encounter Status:Closed by NOEMÍ CHRISTIAN on 02/18/24 Normal [facility] XR ABDOMEN AP 1 VWon 024 XR [...] Milton Onofre on 02/15/2024 10:14 AM Normal [facility] B.PERTUSSIS, IGA,IGG,IG,, SE RUM(SST)on 02-11-2024 B. pertussis, IgG Interp SEE NOTE Abnormal Negative [facility] Comment on above: Result Comment: NOTE IgG [...] of Bordetella. Performed By: #### C BCA, HA1C, CMP, 2498-4, 11848-8, THYR, 3051-0, 6476-6, 85427-4, 98705-5, 01556-1, 5193-8 #### [facility] ([id number]) [address] [place] [address] [address] [place] [address] #### BPA #### [facility] ([id number]) [address] [place] [address] B. pertussis, IgG/FHA Positive Normal [facility] Comment on above: Performed By: #### C BCA, HA1C, CMP, 2498-4, 98503-3, THYR, 3051-0, 6476-6, 11780-5, 51878-9, 91621-2, 5193-8 #### [facility] ([id number]) [address], [address] [place] [address] #### BPA #### [facility] ([id number]) [address] [place] [address] B. pertussis, IgG/PT Equivocal Normal [facility] Comment on above: Performed By: #### C BCA, HA1C, CMP, 2498-4, 16225-6, THYR, 3051-0, 6476-6, 61407-1, 88854-5, 35302-7, 5193-8 #### [facility] ([id number]) [address] [facility], [address] [place] [address] #### BPA #### [facility] ([id number]) [address] [place] [address] B. pertussis, IgG/PT100 Negative Normal [facility] Comment on above: Performed By: #### C BCA, HA1C, CMP, 2498-4, 65271-9, THYR, 3051-0, 6476-6, 48363-8, 33711-2, 90973-0, 5193-8 #### [facility] ([id number]) [address] [facility], [address] [place] [address] #### BPAGM #### [facility] ([id number]) [address] [place] [address]9468 B. pertussis, IgM Interp Negative Normal Negative [facility] Comment on above: Result Comment: NOTE No IgM antibodies against Bordetella FHA and PT detected. INTREPRETIVE INFORMATION: B. pertussis Antibody, IgM Immunoblot This test was developed and its performance characteristics determined by [facility]. It has not been cleared or approved by the [place] Food and Drug Administration. This test was performed in a CLIA certified laboratory and is intended for clinical purposes. Performed By: [facility] [address] [place] [address] Instructional Technology Coach: Shawn Lacey MD, PhD CLIA Number: [id number] Performed By: #### C BCA, HA1C, CMP, 2498-4, 35545-4, THYR, 3051-0, 6476-6, 32319-2, 86127-6, 66664-7, 5193-8 #### [facility] ([id number]) [address] [facility] [facility], [address] [place] [address] #### BPAGM #### [facility] ([id number]) [address] [place] [address] B. pertussis, IgM/FHA Negative Normal [facility] Comment on above: Performed By: #### C BCA, HA1C, CMP, 2498-4, 26031-1, THYR, 3051-0, 6476-6, 02164-1, 52713-1, 30583-2, 5193-8 #### [facility] ([id number]) [address] [facility], [address] [place] [address] #### BPAGM #### [facility] ([id number]) [address] [place] [address] 18186 B. pertussis, IgM/PT Negative Normal [facility] Comment on above: Performed By: #### C BCA, HA1C, CMP, 2498-4, 50566-1, THYR, 3051-0, 6476-6, 62189-4, 54067-3, 48926-0, 5193-8 #### [facility] ([id number]) [address] [facility], [address] [place] [address] #### BPAGM #### [facility] ([id number]) [address] [place] [address] B.PERTUSSIS IGA INT SEE NOTE Abnormal Negative [facility] Comment on above: Result Comment: NOTE [...] of Bordetella. Performed By: #### C BCA, HA1C, CMP, 2498-4, 82721-4, THYR, 3051-0, 6476-6, 21517-3, 15439-7, 97316-3, 5193-8 #### [facility] ([id number]) [address] [place] [address], [address] [place] [address] #### BPAGM #### [facility] ([id number]) [address] [place] [address] B.PERTUSSIS,IGA/FHA Equivocal Normal [facility] Comment on above: Performed By: #### C BCA, HA1C, CMP, 2498-4, 90210-6, THYR, 3051-0, 6476-6, 86609-6, 28204-0, 81126-3, 5193-8 #### [facility] ([id number]) [address] [place] [address], [address] [place] [address] #### BPAGM #### [facility] ([id number]) [address] [place] [address] B.PERTUSSIS,IGA/PT Negative Normal [facility] Comment on above: Performed By: #### C BCA, HA1C, CMP, 2498-4, 14043-5, THYR, 3051-0, 6476-6, 74278-6, 29032-8, 07874-7, 5193-8 #### [facility] ([id number]) [address] [place] [address], [address] [place] [address] #### BPAGM #### [facility] ([id number]) [address] [place] [address] 80511 CBC AND AUTO DIFFon 02-11-20 24 ABSOLUTE BASOPHIL 0.1 X10E9/L Normal 0.0-0.2 [facility] Comment on above: Performed By: #### C BCA, HA1C, CMP, 2498-4, 40781-3, THYR, 3051-0, 6476-6, 54610-7, 38589-3, 17300-6, 5193-8 #### [facility] ([id number]) [address] [place] [address], [address] [place] [address] #### BPAGM #### [facility] ([id number]) [address] [place] [address]708 ABSOLUTE NEUTROPHIL 4.0 X10E9/L Normal 1.5-6.6 [facility] Comment on above: Performed By: #### C BCA, HA1C, CMP, 2498-4, 13964-2, THYR, 3051-0, 6476-6, 64565-2, 41037-1, 86078-3, 5193-8 #### [facility] ([id number]) [address] [place] [address], [address] [address] #### BPAGM #### [facility] ([id number]) [address] [place] [address] 68807 Basophils/100 WBC (Bld) 1.1 % Normal [facility] Comment on above: Performed By: #### C BCA, HA1C, CMP, 2498-4, 28350-2, THYR, 3051-0, 6476-6, 43340-7, 77316-1, 94674-9, 5193-8 #### [facility] ([id number]) [address], [address] [place] [address] #### BPA #### [facility] ([id number]) [address] [place] [address] 79485 Eosinophils (Bld) [#/Vol] 0.2 10*3/uL Normal 0.0-0.4 [facility] Comment on above: Performed By: #### C BCA, HA1C, CMP, 2498-4, 85491-5, THYR, 3051-0, 6476-6, 76907-8, 80420-9, 80226-0, 519-8 #### [facility] ([id number]) [address], [address] [place] [address] #### BPAGM #### [facility] ([id number]) [address] [place] [address] 29130 Eosinophils/100 WBC (Bld) 2.9 % Normal [facility] Comment on above: Performed By: #### C BCA, HA1C, CMP, 2498-4, 32353-8, THYR, 3051-0, 6476-6, 86854-6, 11848-8, 31519-4, 519-8 #### [facility] ([id number]) [address], [address] [place] [address] #### BPAGM #### [facility] ([id number]) [address] [place] [address] 62631 Erythrocyte distribution width (RBC) [Ratio] 12.3 % Normal 11.5-15.0 [facility] Comment on above: Performed By: #### C BCA, HA1C, CMP, 2498-4, 05375-9, THYR, 3051-0, 6476-6, 17529-2, 37145-8, 31381-5, 519-8 #### [facility] ([id number]) [address], [address] [place] [address] #### BPAGM #### [facility] ([id number]) [address] [place] [address] 96695 Hematocrit (Bld) [Volume fraction] 37.4 % Normal 35-47 [facility] Comment on above: Performed By: #### C BCA, HA1C, CMP, 2498-4, 83076-2, THYR, 3051-0, 6476-6, 15647-8, 14853-2, 53962-5, 5193-8 #### [facility] ([id number]) [address], [address] [place] [address] #### BPAGM #### [facility] ([id number]) [address] [place] [address] 98285 Hemoglobin (Bld) [Mass/Vol] 12.5 g/dL Normal 11.7-15.5 [facility] Comment on above: Performed By: #### C BCA, HA1C, CMP, 2498-4, 36008-3, THYR, 3051-0, 6476-6, 78924-6, 18188-0, 37108-2, 5193-8 #### [facility] ([id number]) [address], [address] [place] [address] #### BPAGM #### [facility] ([id number]) [address] [place] [address] 56879 Lymphocytes (Bld) [#/Vol] 2.2 10*3/uL Normal 1.0-3.5 [facility] Comment on above: Performed By: #### C BCA, HA1C, CMP, 2498-4, 34758-2, THYR, 3051-0, 6476-6, 38308-7, 47297-4, 52974-2, 5193-8 #### [facility] ([id number]) [address] [facility], [address] [place] [address] #### BPAGM #### [facility] ([id number]) [address] [place] [address] 56425 Lymphocytes/100 WBC (Bld) 31.4 % Normal [facility] Comment on above: Performed By: #### C BCA, HA1C, CMP, 2498-4, 04472-5, THYR, 3051-0, 6476-6, 21820-7, 25590-2, 50784-3, 5193-8 #### [facility] ([id number]) [address] [facility] [facility] [address] [place] [address] #### BPAGM #### [facility] ([id number]) [address] [place] [address] 14587 MCH (RBC) [Entitic mass] 30.9 pg Normal 27-34 [facility] Comment on above: Performed By: #### C BCA, HA1C, CMP, 2498-4, 87792-8, THYR, 3051-0, 6476-6, 62032-5, 10125-4, 57413-6, 5193-8 #### [facility] ([id number]) [address] [facility], [address] [place] [address] #### BPAGM #### [facility] ([id number]) [address] [place] [address] 81338 MCHC (RBC) [Mass/Vol] 33.5 g/dL Normal 32-36 [facility] Comment on above: Performed By: #### C BCA, HA1C, CMP, 2498-4, 03759-0, THYR, 3051-0, 6476-6, 75623-7, 20648-3, 93189-3, 5193-8 #### [facility] ([id number]) [address] [facility] [facility] [place] [address] #### BPAGM #### [facility] ([id number]) [address] [place] [address] 69829 MCV (RBC) [Entitic vol] 92 fL Normal 80-100 [facility] Comment on above: Performed By: #### C BCA, HA1C, CMP, 2498-4, 98669-6, THYR, 3051-0, 6476-6, 48444-8, 39820-4, 02187-9, 5193-8 #### [facility] ([id number]) [address] [place] [address], [address] [place] [address] #### BPAGM #### [facility] ([id number]) [address] [place] [address] 82745 Monocytes (Bld) [#/Vol] 0.5 10*3/uL Normal 0-0.9 [facility] Comment on above: Performed By: #### C BCA, HA1C, CMP, 2498-4, 55824-9, THYR, 3051-0, 6476-6, 08900-9, 22038-8, 75580-0, 5193-8 #### [facility] ([id number]) [address] [place] [address], [address] [address] #### BPAGM #### [facility] ([id number]) [address] [place] [address] 35418 Monocytes/100 WBC (Bld) 7.4 % Normal [facility] Comment on above: Performed By: #### C BCA, HA1C, CMP, 2498-4, 02880-9, THYR, 3051-0, 6476-6, 82401-5, 12915-4, 77695-5, 5193-8 #### [facility] ([id number]) [address] [place] [address], [address] [place] [address] #### BPAGM #### [facility] ([id number]) [address] [place] [address] 27267 Neutrophils/100 WBC (Bld) 57.2 % Normal [facility] Comment on above: Performed By: #### C BCA, HA1C, CMP, 2498-4, 86659-4, THYR, 3051-0, 6476-6, 82409-5, 77818-5, 89022-2, 5193-8 #### [facility] ([id number]) [address], [address] [place] [address] #### BPAGM #### [facility] ([id number]) [address] [place] [address] 29317 Platelet mean volume (Bld) [Entitic vol] 11.9 fL Normal 7-12 [facility] Comment on above: Performed By: #### C BCA, HA1C, CMP, 2498-4, 24510-6, THYR, 3051-0, 6476-6, 66224-2, 37994-2, 12348-9, 5193-8 #### [facility] ([id number]) [address] [place] [address] #### BPAGM #### [facility] ([id number]) [address] [place] [address] 15359 Platelets (Bld) [#/Vol] 215 10*3/uL Normal 150-450 [facility] Comment on above: Performed By: #### C BCA, HA1C, CMP, 2498-4, 95768-7, THYR, 3051-0, 6476-6, 62340-5, 59782-6, 85899-1, 5193-8 #### [facility] ([id number]) [address] [facility] [place] [address] #### BPAGM #### [facility] ([id number]) [address] [place] [address] 98573 RBC COUNT 4.05 X10E12/L Normal 3.80-5.20 [facility] Comment on above: Performed By: #### C BCA, HA1C, CMP, 2498-4, 86553-7, THYR, 3051-0, 6476-6, 85771-3, 22182-6, 68480-4, 5193-8 #### [facility] ([id number]) [address] [facility], [address] [place] [address] #### BPAGM #### [facility] ([id number]) [address] [place] [address] 93854 WBC (Bld) [#/Vol] 7.0 10*3/uL Normal 4.0-11.0 [facility] Comment on above: Performed By: #### C BCA, HA1C, CMP, 2498-4, 04470-4, THYR, 3051-0, 6476-6, 92596-7, 20992-6, 12496-9, 5193-8 #### [facility] ([id number]) [address] [place] [address], [address] [place] [address] #### BPAGM #### [facility] ([id number]) [address] [place] [address]309 COMPREHENSIVE METABOLIC PANE Kirby 02-11-2024 Albumin [Mass/Vol] 4.4 g/dL Normal 3.2-5.3 [facility] Comment on above: Performed By: #### C BCA, HA1C, CMP, 2498-4, 74586-8, THYR, 3051-0, 6476-6, 51438-5, 83021-7, 98761-1, 5193-8 #### [facility] ([id number]) [address] [place] [address], [address] [place] [address] #### BPAGM #### [facility] ([id number]) [address] [place] [address] 83809 ALP [Catalytic activity/Vol] 47 U/L Normal 39-130 [facility] Comment on above: Performed By: #### C BCA, HA1C, CMP, 2498-4, 68730-0, THYR, 3051-0, 6476-6, 19487-0, 28415-1, 66318-5, 5193-8 #### [facility] ([id number]) [address] [facility] [place] [address] #### BPAGM #### [facility] ([id number]) [address] [place] [address] 05938 ALT [Catalytic activity/Vol] 10 U/L Normal 0-31 [facility] Comment on above: Performed By: #### C BCA, HA1C, CMP, 2498-4, 53365-7, THYR, 3051-0, 6476-6, 85144-5, 56732-3, 74915-0, 5193-8 #### [facility] ([id number]) [address] [facility], [address] [place] [address] #### BPAGM #### [facility] ([id number]) [address] [place] [address] 45093 Anion gap [Moles/Vol] 10 mmol/L Normal 5-15 [facility] Comment on above: Performed By: #### C BCA, HA1C, CMP, 2498-4, 30892-2, THYR, 3051-0, 6476-6, 02291-2, 43490-1, 68516-9, 5193-8 #### [facility] ([id number]) [address] [facility] [place] [address] #### BPAGM #### [facility] ([id number]) [address] [place] [address] 67518 AST [Catalytic activity/Vol] 17 U/L Normal 0-41 [facility] Comment on above: Performed By: #### C BCA, HA1C, CMP, 2498-4, 00895-1, THYR, 3051-0, 6476-6, 07153-5, 69937-1, 13145-6, 5193-8 #### [facility] ([id number]) [address] [place] [address], [address] [address] #### BPAGM #### [facility] ([id number]) [address] [place] [address] 84990 Bilirubin [Mass/Vol] 0.4 mg/dL Normal 0.3-1.2 [facility] Comment on above: Performed By: #### C BCA, HA1C, CMP, 2498-4, 66965-3, THYR, 3051-0, 6476-6, 04901-7, 57752-8, 26673-4, 5193-8 #### [facility] ([id number]) [address] [place] [address] #### BPAGM #### [facility] ([id number]) [address] [place] [address] 27460 Calcium [Mass/Vol] 9.1 mg/dL Normal 8.5-10.5 [facility] Comment on above: Performed By: #### C BCA, HA1C, CMP, 2498-4, 89059-3, THYR, 3051-0, 6476-6, 79075-7, 16124-4, 29912-0, 5193-8 #### [facility] ([id number]) [address] [place] [address], [address] [place] [address] #### BPAGM #### [facility] ([id number]) [address] [place] [address] 06129 Chloride [Moles/Vol] 103 mmol/L Normal 98-109 [facility] Comment on above: Performed By: #### C BCA, HA1C, CMP, 2498-4, 19559-3, THYR, 3051-0, 6476-6, 88745-5, 04419-3, 75281-5, 5193-8 #### [facility] ([id number]) [address], [address] [place] [address] #### BPAGM #### [facility] ([id number]) [address] [place] [address] CO2 [Moles/Vol] 27 mmol/L Normal 22-32 [facility] Comment on above: Performed By: #### C BCA, HA1C, CMP, 2498-4, 76475-0, THYR, 3051-0, 6476-6, 04260-0, 62957-4, 51061-6, 5193-8 #### [facility] ([id number]) [address] [place] [address] #### BPAGM #### [facility] ([id number]) [address] [place] [address] Creatinine [Mass/Vol] 0.72 mg/dL Normal 0.40-1.00 [facility] Comment on above: Result Comment: METH OD TRACEABLE TO IDMS STANDARD Performed By: #### C BCA, HA1C, CMP, 2498-4, 11125-3, THYR, 3051-0, 6476-6, 28889-9, 57258-5, 50097-1, 5193-8 #### [facility] ([id number]) [address], [address] [place] [address] #### BPAGM #### [facility] ([id number]) [address] [place] [address] eGFR (CKD-EPI) NON-RACE DEPENDENT >90 Normal >59 [facility] Comment on above: Result Comment: Reported eGFR is based on the CKD-EPI 2020 equation that does not use a race coefficient. Performed By: #### C BCA, HA1C, CMP, 2498-4, 53348-5, THYR, 3051-0, 6476-6, 30683-5, 96170-9, 17091-5, 5193-8 #### [facility] ([id number]) [address] [place] [address] #### BPA #### [facility] ([id number]) [address] [place] [address] Glucose [Mass/Vol] 90 mg/dL Normal 65-99 [facility] Comment on above: Performed By: #### C BCA, HA1C, CMP, 2498-4, 96300-4, THYR, 3051-0, 6476-6, 26333-2, 47356-3, 88298-8, 5193-8 #### [facility] ([id number]) [address], [address] [place] [address] #### BPAGM #### [facility] ([id number]) [address] [place] [address] Potassium [Moles/Vol] 4.0 mmol/L Normal 3.5-5.0 [facility] Comment on above: Performed By: #### C BCA, HA1C, CMP, 2498-4, 58506-5, THYR, 3051-0, 6476-6, 05903-8, 78215-2, 31095-9, 5193-8 #### [facility] ([id number]) [address] [place] [address] #### BPAGM #### [facility] ([id number]) [address] [place] [address] Protein [Mass/Vol] 7.2 g/dL Normal 6.0-8.0 [facility] Comment on above: Performed By: #### C BCA, HA1C, CMP, 2498-4, 91963-2, THYR, 3051-0, 6476-6, 37222-3, 49322-5, 85817-5, 5193-8 #### [facility] ([id number]) [address], [address] [place] [address] #### BPAGM #### [facility] ([id number]) [address] [place] [address] Sodium [Moles/Vol] 140 mmol/L Normal 134-146 [facility] Comment on above: Performed By: #### C BCA, HA1C, CMP, 2498-4, 00949-0, THYR, 3051-0, 6476-6, 04897-6, 85077-5, 62447-0, 5193-8 #### [facility] ([id number]) [address], [address] [place] [address] #### BPAGM #### [facility] ([id number]) [address] [place] [address] Urea nitrogen [Mass/Vol] 9 mg/dL Normal 5-23 [facility] Comment on above: Performed By: #### C BCA, HA1C, CMP, 2498-4, 29601-6, THYR, 3051-0, 6476-6, 00849-2, 00113-7, 02307-3, 5193-8 #### [facility] ([id number]) [address] [address] #### BPAGM #### [facility] ([id number]) [address] [place] [address] 12043 FREE T3on 02-11-2024 Free T3 [Mass/Vol] 3.00 pg/mL Normal 2.50-3.90 [facility] Comment on above: Performed By: #### C BCA, HA1C, CMP, 2498-4, 07748-3, THYR, 3051-0, 6476-6, 00273-5, 22672-2, 00224-7, 5193-8 #### [facility] ([id number]) [address], [address] [place] [address] #### BPAGM #### [facility] ([id number]) [address] [place] [address] 97860 HBV surface Ab POWER Lindsey 02-10 Anti HBs quant. 6874.12 mIU/mL Normal [facility] Comment on above: Result Comment: Vacc inated: >=12mIU/mL, Positive (Immune) Unvaccinated: <8mIU/mL, Negative (Not Immune) 8-11.99 mIU/mL: Indeterminate, (Considered Not Immune) Performed By: #### C BCA, HA1C, CMP, 2498-4, 23989-5, THYR, 3051-0, 6476-6, 18754-3, 62286-2, 83682-2, 5193-8 #### [facility] ([id number]) [address], [address] [place] [address] #### BPAGM #### [facility] ([id number]) [address] [place] [address] 24326 HGB A1C (GLYCO-HGB)on 2023 Glucose [Mass/Vol] 100 mg/dL Normal [facility] Comment on above: Performed By: #### C BCA, HA1C, CMP, 2498-4, 28775-3, THYR, 3051-0, 6476-6, 97777-1, 78388-2, 02158-4, 5193-8 #### [facility] ([id number]) [address], [address] [place] [address] #### BPAGM #### [facility] ([id number]) [address] [place] [address] 21982 HbA1c (Bld) [Mass fraction] 5.1 % Normal 4.4-5.6 [facility] Comment on above: Result Comment: NOTE ADA Guidelines Result HgbA1c Normal : less than 5.7 % Prediabetes : 5.7 % to 6.4 % Diabetes : > 6.4 % Use with caution in patients with abnormal hemoglobin variants as the half-life of red blood cells and in vivo glycation rates are affected. Performed By: #### C BCA, HA1C, CMP, 2498-4, 13348-2, THYR, 3051-0, 6476-6, 04353-5, 34518-0, 17117-9, 5193-8 #### [facility] ([id number]) [address], [address] [place] [address] #### BPAGM #### [facility] ([id number]) [address] [place] [address] 22876 IRONon 02-11-2024 Iron [Mass/Vol] 87 ug/dL Normal 50-170 [facility] Comment on above: Performed By: #### C BCA, HA1C, CMP, 2498-4, 94605-9, THYR, 3051-0, 6476-6, 26161-8, 16704-1, 14780-2, 5193-8 #### [facility] ([id number]) [address] [place] [address], [address] [place] [address] #### BPAGM #### [facility] ([id number]) [address] [place] [address] 65549 Lipid 1996 panelon Cholesterol [Mass/Vol] 203 mg/dL High 150-200 [facility] Comment on above: Performed By: #### C BCA, HA1C, CMP, 2498-4, 59373-3, THYR, 3051-0, 6476-6, 99880-3, 43789-7, 24570-5, 5193-8 #### [facility] ([id number]) [address], [address] [place] [address] #### BPAGM #### [facility] ([id number]) [address] [place] [address] Cholesterol in HDL [Mass/Vol] 50 mg/dL Normal >39 [facility] Comment on above: Result Comment: HDL <40 mg/dL - High Risk HDL > or = 40mg/dL- Desirable HDL >60 mg/dL - Negative Risk Performed By: #### C BCA, HA1C, CMP, 2498-4, 59433-6, THYR, 3051-0, 6476-6, 56224-9, 18635-9, 06509-8, 5193-8 #### [facility] ([id number]) [address] [place] [address], [address] [place] [address] #### BPAGM #### [facility] ([id number]) [address] [place] [address] 70468 Cholesterol in LDL [Mass/Vol] 125 mg/dL Normal <130 [facility] Comment on above: Result Comment: LDL <100 mg/dL - Desirable LDL >160 mg/dL - High Risk Performed By: #### C BCA, HA1C, CMP, 2498-4, 35869-0, THYR, 3051-0, 6476-6, 02005-2, 11945-0, 89561-3, 5193-8 #### [facility] ([id number]) [address] [place] [address], [address] [place] [address] #### BPAGM #### [facility] ([id number]) [address] [place] [address] 19230 Cholesterol in VLDL [Mass/Vol] 28 mg/dL Normal 0-30 [facility] Comment on above: Performed By: #### C BCA, HA1C, CMP, 2498-4, 93368-8, THYR, 3051-0, 6476-6, 65044-9, 17705-7, 05995-1, 5193-8 #### [facility] ([id number]) [address], [address] [place] [address] #### BPAGM #### [facility] ([id number]) [address] [place] [address] 81452 CHOLESTEROL:HDL 4.1 Normal 1.0-5.0 [facility] Comment on above: Performed By: #### C BCA, HA1C, CMP, 2498-4, 49809-5, THYR, 3051-0, 6476-6, 69536-3, 16693-3, 24244-1, 5193-8 #### [facility] ([id number]) [address], [address] [place] [address] #### BPAGM #### [facility] ([id number]) [address] [place] [address] 87577 Triglyceride [Mass/Vol] 140 mg/dL Normal 27-150 [facility] Comment on above: Performed By: #### C BCA, HA1C, CMP, 2498-4, 86735-5, THYR, 3051-0, 6476-6, 24849-7, 40856-6, 99955-2, 5193-8 #### [facility] ([id number]) [address], [address] [place] [address] #### BPA #### [facility] ([id number]) [address] [place] [address] 56266 MeV IgG IA Ql (S)on 02-11-20 24 RUBEOLA AB SCREEN 1.9 AI High <0.9 [facility] Comment on above: Result Comment: POSI TIVE: Antibody(IgG) detected. Indicates previous exposure to rubeola virus and immunity. Performed By: #### C BCA, HA1C, CMP, 2498-4, 21218-8, THYR, 3051-0, 6476-6, 20018-1, 49055-1, 11835-8, 5193-8 #### [facility] ([id number]) [address] [place] [address], [address] [place] [address] #### BPAGM #### [facility] ([id number]) [address] [place] [address] 14840 MuV IgG IA Ql (S)on 02-11-20 MUMPS VIRUS IgG 2.5 AI High <0.9 [facility] Comment on above: Result Comment: Interpretation-------- <0.9 Negative 0.9 - 1.0 Equivocal >1.0 Positive Performed By: #### C BCA, HA1C, CMP, 2498-4, 72902-4, THYR, 3051-0, 6476-6, 07728-6, 45080-2, 45875-4, 5193-8 #### [facility] ([id number]) [address] [place] [address], [address] [place] [address] #### BPA #### [facility] ([id number]) [address] [place] [address] 17000 Rubella virus Ab Ql (S)on RUBELLA IMMUNE IgG 1.6 AI Normal [facility] Comment on above: Result Comment: Interpretation-------- <0.8 NEGATIVE-considered Not Immune 0.8-0.9 EQUIVOCAL-consider retesting with new specimen >0.9 POSITIVE-considered Immune Performed By: #### C BCA, HA1C, CMP, 2498-4, 21470-6, THYR, 3051-0, 6476-6, 60753-6, 02702-0, 71592-3, 5193-8 #### [facility] ([id number]) [address], [address] [place] [address] #### BPAGM #### [facility] ([id number]) [address] [place] [address] 55511 THYROID PROFILEon 02-11-2024 Free T4 [Mass/Vol] 1.00 ng/dL Normal 0.61-1.60 [facility] Comment on above: Performed By: #### C BCA, HA1C, CMP, 2498-4, 13851-5, THYR, 3051-0, 6476-6, 44216-6, 29056-9, 18955-4, 5193-8 #### [facility] ([id number]) [address], [address] [place] [address] #### BPAGM #### [facility] ([id number]) [address] [place] [address] 95572 TSH 1.24 uIU/mL Normal 0.49-4.67 [facility] Comment on above: Performed By: #### C BCA, HA1C, CMP, 2498-4, 35513-7, THYR, 3051-0, 6476-6, 81954-3, 27577-7, 63699-7, 5193-8 #### [facility] ([id number]) [address], [address] [place] [address] #### BPAGM #### [facility] ([id number]) [address] [place] [address] 99955 US ABDOMEN LMTD ABDOMEN WALL on 02-11-2024 [...] Vladimir [place] MD on 02/11/2024 10:26 AM ILes have personally reviewed the image(s) and agree with and/or edited the report Finalized by Les Greenberg on 02/11/2024 10:47 AM Normal [facility] VZV IgG IA Ql (S)on 02-11-20 24 VARICELLA IgG 1.6 AI High <0.9 [facility] Comment on above: Result Comment: Interpretation-------- <0.9 Negative 0.9 - 1.0 Equivocal >1.0 Positive Performed By: #### C BCA, HA1C, CMP, 2498-4, 57313-1, THYR, 3051-0, 6476-6, 87517-2, 22872-0, 38194-5, 5193-8 #### [facility] ([id number]) [address] [place] [address] #### BPA #### [facility] ([id number]) [address] [place] [address], [place] [address] CNOVon 02-02-2024 CNOV Office Visit (SYNCMN ) PASTOR HELLER ([id number]) 1990 F UPA Date Time Provider Department 02/02/24 11:45 AM IRINA FINLEY ABRAN SYNCMN During your visit today, we recorded the following information about you: Pulse Blood pressure Weight Height 78/minute 126/80 55.3 kg 1.524 m FerIrina franklin Abran, DO 02/02/2024 12:58 PM Signed [facility] Department of Cardiovascular Medicine SECTION OF CARDIAC PACING and ELECTROPHYSIOLOGY OUTPATIENT VISIT DATE February 02, 2024 OUTPATIENT VISIT TYPE ESTABLISHED PRIMARY CARE PHYSICIAN: Siobhan Evangelista [address] [place] [address] CHIEF COMPLAINT: syncope HISTORY OF PRESENT ILLNESS: [...] the prior echocardiographic exam performed on 01/23/2022 ([place]). There is no significant change. OS event [...] uncontrolled vagina (more content not included)... Normal [facility] ECG COMPLETEon 02-02-2024 ECG COMPLETE Ventricular Rate : 6 7 BPM Atrial Rate : 67 BPM P-R Interval : 148 ms QRS Duration : 84 ms Q-T Interval : 378 ms QTC Calculation(Bazett) : 399 ms Calculated P Ranger : 63 degrees Calculated R Ranger : 40 degrees Calculated T Ranger : 32 degrees NORMAL SINUS RHYTHM NORMAL ECG Confirmed by MD AGUILAR HEBA ([id number]) on 03/07/2024 8:00:20 PM NAME : PASTOR HELLER PID : [id number] : 1990 Gender : Female Race : Unknown ORD : [id number] Procedure Date : Feb 02 2024 11:08:30 Edit Date : Mar 07 2024 20:00:23 Diagnosis: NORMAL SINUS RHYTHM NORMAL ECG Confirmed by MD AGUILAR HEBA ([id number]) on 03/07/2024 8:00:20 PM Test Reason : Location : 314 : J14 J1-4 Overread By : MD AGUILAR HEBA Edited By : MD AGUILAR HEBA Referred By : IRINA FINLEY Acquired by : GABRIELLE RAMIREZ Normal [facility] 11-01-2023 CNCO Letter Text Normal [facility] 10-28-2023 CNCO Letter Text Normal [facility] CARDIOPULMONARY EXERCISE JANE Ton 08-27-2023 IGZ41-38% PRE (L/S) 3.05 L/S [facility] GTP26-25% SUPPLEMENTAL (L/S) 3.17 L/S [facility] FET SUPPLEMENTAL (S) 7.68 S [facility] FEV1 PRE (L) 3.08 L [facility] FEV1 SUPPLEMENTAL (L) 3.10 L [facility] FEV1/FVC PRE (%) 83 % [facility] FEV1/FVC SUPPLEMENTAL (%) 83 % [facility] FVC PRE (L) 3.71 L [facility] FVC SUPPLEMENTAL (L) 3.73 L [facility] MVV (L/MIN) 95 L/MIN [facility] PEF PRE (L/S) 7.77 L/S [facility] PEF SUPPLEMENTAL (L/S) 6.74 L/S [facility] [address] [place] [address] Test Date: 2023-08-27 Pat Name: PASTOR HELLER Department: Room: Gender: Female 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 2. Heart Rate Amelia = 5% (normal is <15%). This identifies [...] (more content not included)... PULMONARY FUNCTION LAB [facility] SPIROMETRY - BASELINE AND PO ST DILATORon 02-26-2023 [facility] US PELVIS AND TRANSVAGon US PELVIS [...] by: LOAN SAMAYOA Date: 2022-06-04 08:02 Normal [facility] Basophils Auto (Bld) [#/Vol] Ordered By: Carlito Mae on 01-21-2022 Basophils (Bld) [#/Vol] 0.1 10*3/uL 0.0-0.2 [facility] Basophils/100 WBC Auto (Bld) Ordered By: Carlito Mae on 01-21-2022 Basophils/100 WBC (Bld) 0.7 % . [facility] Body fluid albumin measureme nt (mass/volume)Ordered By: Carlito Mae on 01-21-2022 Albumin (Body fld) [Mass/Vol] 3.8 g/dL 3.2-5.5 [facility] COVID-19 SOFIAOrdered By: Silverio Mae on 01-21-2022 SARS-CoV+SARS-CoV-2 (COVID-19) Ag IA.rapid Ql (Resp) Negative Negative [facility] Comment on above: This is a duplicate Renee SARS Antigen (CRISTINA) result to be used for statistical tracking purpose only. Creatinine and Glomerular fi ltration rate.predicted panel (S/P/Bld)Ordered By: Carlito Mae on 01-21-2022 Creatinine [Mass/Vol] 0.59 mg/dL 0.44-1.03 [facility] Eosinophils Auto (Bld) [#/Vo l]Ordered By: Carlito Mae on 01-21-2022 Eosinophils (Bld) [#/Vol] 0.2 10*3/uL 0.0-0.45 [facility] Eosinophils/100 WBC Auto (Bl d)Ordered By: Carlito Mae on 01-21-2022 Eosinophils/100 WBC (Bld) 1.6 % . [facility] Erythrocyte distribution wid th Auto (RBC) [Ratio]Ordered By: Carlito Mae on 01-21-2022 Erythrocyte distribution width (RBC) [Ratio] 12.9 % 11.9-15.3 [facility] Estimated glomerular filtrat ion rate (GFR) non- AmericanOrdered By: Carlito Mae on 01-21-2022 GFR/1.73 sq M.predicted among non-blacks MDRD (S/P/Bld) [Vol rate/Area] > 60 mL/Min [facility] Globulin Calc (S) [Mass/Vol] Ordered By: Carlito Mae on 01-21-2022 Globulin (S) [Mass/Vol] 2.3 g/dL [facility] Hematocrit Auto (Bld) [Volum e fraction]Ordered By: Carlito Mae on 01-21-2022 Hematocrit (Bld) [Volume fraction] 34.8 % 34.0-46.4 [facility] Hemoglobin [Mass/volume] in BloodOrdered By: Carlito Mae on 01-21-2022 Hemoglobin (Bld) [Mass/Vol] 11.2 g/dL 11.8-15.4 [facility] Laboratory - Hematology and Cell countsOrdered By: Carlito Mae on 01-21-2022 Nucleated RBC/100 WBC (Bld) [Ratio] 0.1 % 0-0.5 [facility] Leukocytes [#/volume] in Blo od by Automated countOrdered By: Carlito Mae on 01-21-2022 WBC (Bld) [#/Vol] 10.1 10*3/uL 4.5-11.0 [facility] Lymphocytes Auto (Bld) [#/Vo l]Ordered By: Carlito Mae on 01-21-2022 Lymphocytes (Bld) [#/Vol] 1.6 10*3/uL 1.00-4.8 [facility] Lymphocytes/100 WBC Auto (Bl d)Ordered By: Carlito Mae on 01-21-2022 Lymphocytes/100 WBC (Bld) 16.0 % . [facility] MCH Auto (RBC) [Entitic mass ]Ordered By: Carlito Mae on 01-21-2022 MCH (RBC) [Entitic mass] 30.5 pg 24.7-34.3 [facility] MCHC Auto (RBC) [Mass/Vol]Or dered By: Carlito Mae on 01-21-2022 MCHC (RBC) [Mass/Vol] 32.3 g/dL 32.0-35.0 [facility] MCV Auto (RBC) [Entitic vol] Ordered By: Carlito Mae on 01-21-2022 MCV (RBC) [Entitic vol] 94.3 fL 80-100 [facility] Monocytes Auto (Bld) [#/Vol] Ordered By: Carlito Mae on 01-21-2022 Monocytes (Bld) [#/Vol] 0.7 10*3/uL 0.0-0.8 [facility] Monocytes/100 WBC Auto (Bld) Ordered By: Carlito Mae on 01-21-2022 Monocytes/100 WBC (Bld) 7.2 % . [facility] Neutrophils Auto (Bld) [#/Vo l]Ordered By: Carlito Mae on 01-21-2022 Neutrophils (Bld) [#/Vol] 7.6 10*3/uL 1.8-7.7 [facility] Neutrophils/100 WBC Auto (Bl d)Ordered By: Carlito Mae on 01-21-2022 Neutrophils/100 WBC (Bld) 74.5 % . [facility] No Panel InformationOrdered By: Carlito Mae on 01-21-2022 Estimated GFR () > 60 mL/Min [facility] Comment on above: GFR estimated refere nce range: According to KDOQI guidelines, <60 ml/min/1.73m2 is sufficient to diagnose a patient with chronic kidney disease. Pharmacy Creatinine Clearance (Chem 133.87 [facility] SARS Antigen (LFIA) [facility] Platelet mean volume Auto (B ld) [Entitic vol]Ordered By: Carlito Mae on 01-21-2022 Platelet mean volume (Bld) [Entitic vol] 11.9 fL 6.3-10.7 [facility] Platelets Auto (Bld) [#/Vol] Ordered By: Carlito Mae on 01-21-2022 Platelets (Bld) [#/Vol] 221 10*3/uL 150-450 [facility] Protein [Mass/volume] in Ser um or PlasmaOrdered By: Carlito Mae on 01-21-2022 Protein [Mass/Vol] 6.1 g/dL 6.1-7.9 [facility] RBC Auto (Bld) [#/Vol]Ordere d By: Carlito Mae on 01-21-2022 RBC (Bld) [#/Vol] 3.69 10*6/uL 3.60-5.00 [facility] Serum or plasma alanine tay otransferase measurement without P-5'-P (enzymatic activiOrdered By: Carlito Mae on 01-21-2022 ALT No additional P-5'-P [Catalytic activity/Vol] 15 U/L [facility] Serum or plasma albumin/glob ulin mass ratioOrdered By: Carlito Mae on 01-21-2022 Albumin/Globulin [Mass ratio] 1.7 {ratio} [facility] Serum or plasma alkaline livan sphatase measurement (enzymatic activity/volume)Ordered By: Carlito Mae on 01-21-2022 ALP [Catalytic activity/Vol] 44 U/L 32-92 [facility] Serum or plasma anion gap de terminationOrdered By: Carlito Mae on 01-21-2022 Anion gap [Moles/Vol] 12.3 mmol/L 6.0-15.0 [facility] Serum or plasma aspartate am inotransferase measurement (enzymatic activity/volume)Ordered By: Carlito Mae on 01-21-2022 AST [Catalytic activity/Vol] 19 U/L 1042 [facility] Serum or plasma calcium walter urement (mass/volume)Ordered By: Carlito Mae on 01-21-2022 Calcium [Mass/Vol] 8.0 mg/dL 8.2-10.2 [facility] Serum or plasma chloride killian surement (moles/volume)Ordered By: Carlito Mae on 01-21-2022 Chloride [Moles/Vol] 109 mmol/L 95-114 [facility] Serum or plasma glucose walter urement (mass/volume)Ordered By: Carlito Mae on 01-21-2022 Glucose [Mass/Vol] 74 mg/dL 70-100 [facility] Comment on above: ADA recommended refe rence rangeRandom Glucose Reference Range is dependent on time and content of last meal. Glucose of more than 200 mg/dL in a nonstressed, ambulatory subject supports the diagnosis of Diabetes Mellitus. Serum or plasma potassium me asurement (moles/volume)Ordered By: Carlito Mae on 01-21-2022 Potassium [Moles/Vol] 3.5 mmol/L 3.5-5.1 [facility] Serum or plasma sodium measu rement (moles/volume)Ordered By: Carlito Mae on 01-21-2022 Sodium [Moles/Vol] 139 mmol/L 136-146 [facility] Serum or plasma total biliru bin measurement (mass/volume)Ordered By: Carlito Mae on 01-21-2022 Bilirubin [Mass/Vol] 0.4 mg/dL 0.3-1.2 [facility] Serum or plasma total carbon dioxide measurement (moles/volume)Ordered By: Carlito Mae on 01-21-2022 CO2 [Moles/Vol] 21.2 mmol/L 22.0-30.0 [facility] Serum or plasma urea nitroge n measurement (mass/volume)Ordered By: Carlito Mae on 01-21-2022 Urea nitrogen [Mass/Vol] 9 mg/dL 9-23 [facility] Creatinine [Mass/volume] in UrineOrdered By: Padmini Moreno on 12-12-2021 Creatinine (U) [Mass/Vol] 96.8 mg/dL Not Estab. [facility] Metanephrines [Mass/volume] in 24 hour UrineOrdered By: Padmini Moreno on 12-12-2021 Metanephrines (24H U) [Mass/Vol] 140 ug/L [facility] Comment on above: This test was develo ped and its performance characteristicsdetermined by [facility]. It has not been cleared orapproved by the Food and Drug Administration. Metanephrines/Creatinine [Ma ss Ratio] in UrineOrdered By: Padmini Moerno on 12-12-2021 Metanephrines/Creatini ne (U) [Mass ratio] 0.4 0.0-1.0 [facility] Comment on above: Result Units: ug/mg CreatPerformed at: [address] [id number] Director: Stefan Vargas MD, Phone: [phone] No Panel InformationOrdered By: Padmini Moreno on 12-12-2021 Plasma Normetanephrine 56.1 pg/mL 0.0-210.1 [facility] Comment on above: This test was develo ped and its performance characteristicsdetermined by [facility]. It has not been cleared orapproved by the Food and Drug Administration. Normetanephrine [Mass/volume ] in 24 hour UrineOrdered By: Padmini Moreno on 12-12-2021 Normetanephrine (24H U) [Mass/Vol] 199 ug/L [facility] Comment on above: This test was develo ped and its performance characteristicsdetermined by [facility]. It has not been cleared orapproved by the Food and Drug Administration. Serum or plasma free metanep hrine measurement (mass/volume)Ordered By: Padmini Moreno on 12-12-2021 Metanephrine Free [Mass/Vol] 44.1 pg/mL 0.0-88.0 [facility] Comment on above: This test was develo ped and its performance characteristicsdetermined by [facility]. It has not been cleared orapproved by the Food and Drug Administration.Performed at: [address] [id number] Director: Stefan Vargas MD, Phone: [phone] Basophils Auto (Bld) [#/Vol] Ordered By: Sirena Navarro on 12-11-2021 Basophils (Bld) [#/Vol] 0.0 10*3/uL 0.0-0.2 [facility] Basophils/100 WBC Auto (Bld) Ordered By: Sirena Navarro on 12-11-2021 Basophils/100 WBC (Bld) 0.4 % . [facility] Blood hemoglobin measurement (mass/volume)Ordered By: Sirena Navarro on 12-11-2021 Hemoglobin (Bld) [Mass/Vol] 11.7 g/dL 11.8-15.4 [facility] Blood leukocytes automated c ount (number/volume)Ordered By: Sirena Navarro on 12-11-2021 WBC (Bld) [#/Vol] 10.5 10*3/uL 4.5-11.0 [facility] Creatinine and Glomerular fi ltration rate.predicted panel (S/P/Bld)Ordered By: Sirena Navarro on 12-11-2021 Creatinine [Mass/Vol] 0.72 mg/dL 0.44-1.03 [facility] Eosinophils Auto (Bld) [#/Vo l]Ordered By: Sirena Navarro on 12-11-2021 Eosinophils (Bld) [#/Vol] 0.4 10*3/uL 0.0-0.45 [facility] Eosinophils/100 WBC Auto (Bl d)Ordered By: Sirena Navarro on 12-11-2021 Eosinophils/100 WBC (Bld) 4.0 % . [facility] Erythrocyte distribution wid th Auto (RBC) [Ratio]Ordered By: Sirena Navarro on 12-11-2021 Erythrocyte distribution width (RBC) [Ratio] 13.0 % 11.9-15.3 [facility] Estimated glomerular filtrat ion rate (GFR) non- AmericanOrdered By: Sirena Navarro on 12-11-2021 GFR/1.73 sq M.predicted among non-blacks MDRD (S/P/Bld) [Vol rate/Area] > 60 mL/Min [facility] Hematocrit Auto (Bld) [Volum e fraction]Ordered By: Sirena Navarro on 12-11-2021 Hematocrit (Bld) [Volume fraction] 35.7 % 34.0-46.4 [facility] - Hematology and Cell countsOrdered By: Sirena Navarro on 12-11-2021 Nucleated RBC/100 WBC (Bld) [Ratio] 0.0 % 0-0.5 [facility] Lymphocytes Auto (Bld) [#/Vo l]Ordered By: Sirena Navarro on 12-11-2021 Lymphocytes (Bld) [#/Vol] 2.5 10*3/uL 1.00-4.8 [facility] Lymphocytes/100 WBC Auto (Bl d)Ordered By: Sirena Navarro on 12-11-2021 Lymphocytes/100 WBC (Bld) 24.0 % . [facility] MCH Auto (RBC) [Entitic mass ]Ordered By: Sirena Navarro on 12-11-2021 MCH (RBC) [Entitic mass] 30.8 pg 24.7-34.3 [facility] MCHC Auto (RBC) [Mass/Vol]Or dered By: Sirena Navarro on 12-11-2021 MCHC (RBC) [Mass/Vol] 32.7 g/dL 32.0-35.0 [facility] MCV Auto (RBC) [Entitic vol] Ordered By: Sirena Navarro on 12-11-2021 MCV (RBC) [Entitic vol] 94.2 fL 80-100 [facility] Monocytes Auto (Bld) [#/Vol] Ordered By: Sirena Navarro on 12-11-2021 Monocytes (Bld) [#/Vol] 0.8 10*3/uL 0.0-0.8 [facility] Monocytes/100 WBC Auto (Bld) Ordered By: Sirena Navarro on 12-11-2021 Monocytes/100 WBC (Bld) 7.4 % . [facility] Neutrophils Auto (Bld) [#/Vo l]Ordered By: Sirena Navarro on 12-11-2021 Neutrophils (Bld) [#/Vol] 6.7 10*3/uL 1.8-7.7 [facility] Neutrophils/100 WBC Auto (Bl d)Ordered By: Sirena Navarro on 12-11-2021 Neutrophils/100 WBC (Bld) 64.2 % . [facility] No Panel InformationOrdered By: Sirena Navarro on 12-11-2021 Estimated GFR () > 60 mL/Min [facility] Comment on above: GFR estimated refere nce range: According to KDOQI guidelines, <60 ml/min/1.73m2 is sufficient to diagnose a patient with chronic kidney disease. Pharmacy Creatinine Clearance (Chem 91.11 [facility] Platelet mean volume Auto (B ld) [Entitic vol]Ordered By: Sirena Navarro on 12-11-2021 Platelet mean volume (Bld) [Entitic vol] 11.3 fL 6.3-10.7 [facility] Platelets Auto (Bld) [#/Vol] Ordered By: Sirena Navarro on 12-11-2021 Platelets (Bld) [#/Vol] 221 10*3/uL 150-450 [facility] RBC Auto (Bld) [#/Vol]Ordere d By: Sirena Navarro on 12-11-2021 RBC (Bld) [#/Vol] 3.79 10*6/uL 3.60-5.00 [facility] Serum or plasma anion gap de terminationOrdered By: Sirena Navarro on 12-11-2021 Anion gap [Moles/Vol] 10.8 mmol/L 6.0-15.0 [facility] Serum or plasma calcium walter urement (mass/volume)Ordered By: Sirena Navarro on 12-11-2021 Calcium [Mass/Vol] 8.5 mg/dL 8.2-10.2 [facility] Serum or plasma chloride killian surement (moles/volume)Ordered By: Sirena Navarro on 12-11-2021 Chloride [Moles/Vol] 108 mmol/L 95-114 [facility] Serum or plasma glucose walter urement (mass/volume)Ordered By: Sirena Navarro on 12-11-2021 Glucose [Mass/Vol] 93 mg/dL 70-100 [facility] Comment on above: ADA recommended refe [...] on 12-11-2021 Potassium [Moles/Vol] 4.0 mmol/L 3.5-5.1 [facility] Serum or plasma sodium measu rement (moles/volume)Ordered By: Sirena Navarro on 12-11-2021 Sodium [Moles/Vol] 137 mmol/L 136-146 [facility] Serum or plasma total carbon dioxide measurement (moles/volume)Ordered By: Sirena Navarro on 12-11-2021 CO2 [Moles/Vol] 22.2 mmol/L 22.0-30.0 [facility] Serum or plasma urea nitroge n measurement (mass/volume)Ordered By: Sirena Navarro on 12-11-2021 Urea nitrogen [Mass/Vol] 13 mg/dL 9-23 [facility] BLEEDING TIMEon 11-14-2021 BLEEDING TIME 10.0 min Critically high 1.0-8.0 [facility] Comment on above: Performed By: #### B LTM #### [facility] [address] [address] [address] Linette Carson PROTIMEon 11-14-2021 INR Coag (PPP) [Relative time] 0.95 {INR} Normal [facility] Comment on above: Performed By: #### P T, PTT #### [facility] [address] [address] [address] Linette Carson INR GUIDELINES SEE BELOW Normal [facility] Comment on above: Result Comment: GABE RED INR: 2.0 - 3.0 CONDITIONS NOT LISTED BELOW 2.5 - 3.5 FOR PROSTHETIC HEART VALVE REPLACEMENT 2.5 - 3.5 RECURRENT THROMBOSIS Performed By: #### P T, PTT #### [facility] [address] [address] [address] Linette Carson PT Coag (PPP) [Time] 10.3 s Normal 9.0-11.6 [facility] Comment on above: Performed By: #### P T, PTT #### [facility] [address] [address] [address] Linette Carson PTTon 11-14-2021 aPTT Coag (Bld) [Time] 30.3 s Normal 22.3-36.2 Th e [facility] Comment on above: Performed By: #### P T, PTT #### [facility] [address] [address] [address] Linette Carson MRI CSPINE WO W CONon 2021 MRI [...] FLACO LOCKETT Date: 2021-09-12 18:39 Normal [facility] MRI TSPINE WO W CONon 2021 [...] by: JAMES HAGEN Date: 2021-09-12 16:30 Normal [facility] MRI LSPINE WO W CONon 2021 [...] by: FLACO LOCKETT Date: 2021-09-10 11:32 Normal [facility] XR CSPINE 2_3 VIEWSon 2021 XR [...] by: LOAN HARRIS Date: 2021-09-10 10:11 Normal [facility] MRI BRAIN WO W CONon 022 MRI BRAIN WO W CON EXAMINATION: [...] by: FLACO LOCKETT Date: 2021-08-06 08:48 Normal [facility] Physician Referralon 021 Physician Referral [id number] Normal [facility] Physical Rehabilitation Offi ce/Clinic Noon 06-07-2018 Physical Rehabilitation Office/Clinic No EMG/NCS of the RUE completed today. Please see report. Electronically signed by Ceci Grady MD 06/07/18 14:12 EST Normal [facility] Vital Signs Date Time Vital Sign Value Performing Clinician Facility 11-01-2024 11:03-0400 Body mass index (BMI) [Ratio] 21.76 kg/m2 Hari Ana [employer] Work Phone: [facility] 11-01-2024 11:03-0400 Body weight 50.53 kg Hari Ana DO Work Phone: [facility] 11-01-2024 11:03-0400 Diastolic blood pressure 70 mm[Hg] Hari Ana DO Work Phone: [facility] 11-01-2024 11:03-0400 Systolic blood pressure 110 mm[Hg] Hari Ana DO Work Phone: [facility] 10-03-2024 10:28-0400 Body mass index (BMI) [Ratio] 22.54 kg/m2 Hari Ana DO Work Phone: [facility] 10-03-2024 10:28-0400 Body weight 52.34 kg Hari Ana DO Work Phone: [facility] 10-03-2024 10:28-0400 Diastolic blood pressure 82 mm[Hg] Hari Ana DO Work Phone: [facility] 10-03-2024 10:28-0400 Systolic blood pressure 126 mm[Hg] Hari Ana DO Work Phone: [facility] 07-20-2024 07:02-0400 Body height 152.4 cm Lorenza Pandal PA-C Work Phone: [facility] 07-20-2024 07:02-0400 Body mass index (BMI) [Ratio] 23.16 kg/m2 Lorenza Cárdenasrinel PA-C Work Phone: [facility] 07-20-2024 07:02-0400 Body weight 53.8 kg Lorenza Avirinel PA-C Work Phone: [facility] 07-20-2024 07:02-0400 Diastolic blood pressure 87 mm[Hg] Lorenza Schrinel PA-C Work Phone: [facility] 07-20-2024 07:02-0400 Systolic blood pressure 114 mm[Hg] Lorenza Schrinel PA-C Work Phone: [facility] 06-20-2024 07:06-0400 Body height 152.4 cm Lorenza Cárdenasrinel PA-C Work Phone: [facility] 06-20-2024 07:06-0400 Body mass index (BMI) [Ratio] 22.73 kg/m2 Lorenza Cárdenasrinel PA-C Work Phone: [facility] 06-20-2024 07:06-0400 Body weight 52.8 kg Lorenza Cárdenasrinel PA-C Work Phone: [facility] 06-20-2024 07:06-0400 Diastolic blood pressure 72 mm[Hg] Lorenza Cárdenasrinel PA-C Work Phone: [facility] 06-20-2024 07:06-0400 Systolic blood pressure 122 mm[Hg] Lorenza Cárdenasrinel PA-C Work Phone: [facility] 05-17-2024 14:07-0500 Body height 152.4 cm Janis Earloll DISINTEGRATOR FEEDER-BAKERY TEAM LEADER Work Phone: [facility] 05-17-2024 14:07-0500 Body mass index (BMI) [Ratio] 22.89 kg/m2 Janis Howell DISINTEGRATOR FEEDER-BAKERY TEAM LEADER Work Phone: [facility] 05-17-2024 14:07-0500 Body weight 53.16 kg Janisselwyn Earloll DISINTEGRATOR FEEDER-BAKERY TEAM LEADER Work Phone: [facility] 02-02-2024 11:53-0400 Body height 152.4 cm Irina Courson DO Work Phone: [facility] 02-02-2024 11:53-0400 Body mass index (BMI) [Ratio] 23.83 kg/m2 Irina Courson DO Work Phone: [facility] 02-02-2024 11:53-0400 Body weight 55.34 kg Irina Courson DO Work Phone: [facility] 02-02-2024 11:53-0400 Diastolic blood pressure 80 mm[Hg] Irina Courson DO Work Phone: [facility] 02-02-2024 11:53-0400 Heart rate 78 /min Irina Courson DO Work Phone: [facility] 02-02-2024 11:53-0400 Systolic blood pressure 126 mm[Hg] Irina Courson DO Work Phone: [facility] 08-17-2023 10:17-0400 Body height 152.4 cm Irina Courson DO Work Phone: [facility] 08-17-2023 10:17-0400 Body mass index (BMI) [Ratio] 25 kg/m2 Irina Courson DO Work Phone: [facility] 08-17-2023 10:17-0400 Body weight 58.06 kg Irina Courson DO Work Phone: [facility] 06-03-2023 07:48-0500 Diastolic blood pressure 67 mm[Hg] James Pinto MD Work Phone: [facility] 06-03-2023 07:48-0500 Heart rate 67 /min James Pinto MD Work Phone: [facility] 06-03-2023 07:48-0500 Systolic blood pressure 115 mm[Hg] James Pinto MD Work Phone: [facility] 06-03-2023 07:46-0500 Body height 149.9 cm James Pinto MD Work Phone: [facility] 06-03-2023 07:46-0500 Body weight 53.71 kg James Pinto MD Work Phone: [facility] 02-26-2023 08:03-0500 Diastolic blood pressure 81 mm[Hg] Vijaya King APRN.CNP Work Phone: [facility] 02-26-2023 08:03-0500 Heart rate 78 /min Vijaya Lochan DISINTEGRATOR FEEDER.BAKERY TEAM LEADER Work Phone: [facility] 02-26-2023 08:03-0500 Respiratory rate 17 /min Vijaya Lochan DISINTEGRATOR FEEDER.BAKERY TEAM LEADER Work Phone: [facility] 02-26-2023 08:03-0500 SaO2% (BldA) [Mass fraction] 98 % Vijaya Lochan DISINTEGRATOR FEEDER.BAKERY TEAM LEADER Work Phone: [facility] 02-26-2023 08:03-0500 Systolic blood pressure 118 mm[Hg] Vijaya Lochan DISINTEGRATOR FEEDER.BAKERY TEAM LEADER Work Phone: [facility] 05-29-2022 15:53-0500 Body height 152.4 cm Massiel Delgado DISINTEGRATOR FEEDER.BAKERY TEAM LEADER Work Phone: [facility] 05-29-2022 15:53-0500 Body weight 49.9 kg Massiel Natarajan DISINTEGRATOR FEEDER.BAKERY TEAM LEADER Work Phone: [facility] 05-29-2022 15:53-0500 Diastolic blood pressure 68 mm[Hg] Massiel Delgado DISINTEGRATOR FEEDER.BAKERY TEAM LEADER Work Phone: [facility] 05-29-2022 15:53-0500 Heart rate 90 /min Massiel Delgado DISINTEGRATOR FEEDER.BAKERY TEAM LEADER Work Phone: [facility] 05-29-2022 15:53-0500 SaO2% (BldA) [Mass fraction] 96 % Massiel Natarajan DISINTEGRATOR FEEDER.BAKERY TEAM LEADER Work Phone: [facility] 05-29-2022 15:53-0500 Systolic blood pressure 119 mm[Hg] Massiel Natarajan DISINTEGRATOR FEEDER.BAKERY TEAM LEADER Work Phone: [facility] 03-25-2022 10:35-0500 Body height 152.4 cm Laury Magaña MD Work Phone: [facility] 03-25-2022 10:35-0500 Body weight 50.35 kg Laury Magaña MD Work Phone: [facility] 03-25-2022 10:35-0500 Diastolic blood pressure 22 mm[Hg] Laury Magaña MD Work Phone: [facility] 03-25-2022 10:35-0500 Heart rate 77 /min Laury Magaña MD Work Phone: [facility] 03-25-2022 10:35-0500 Respiratory rate 19 /min Laury Magaña MD Work Phone: [facility] 03-25-2022 10:35-0500 SaO2% (BldA) [Mass fraction] 100 % Laury Magaña MD Work Phone: [facility] 03-25-2022 10:35-0500 Systolic blood pressure 122 mm[Hg] Laury Magaña MD Work Phone: [facility] 02-19-2022 11:59-0500 Body temperature 99.39 [degF] Winter Rojo MD Work Phone: [facility] 02-19-2022 11:59-0500 Body weight 52.48 kg Winter Rojo MD Work Phone: [facility] 02-19-2022 11:59-0500 Diastolic blood pressure 77 mm[Hg] Winter Rojo MD Work Phone: [facility] 02-19-2022 11:59-0500 Heart rate 94 /min Winter Rojo MD Work Phone: [facility] 02-19-2022 11:59-0500 Respiratory rate 18 /min Winter Rojo MD Work Phone: [facility] 02-19-2022 11:59-0500 SaO2% (BldA) [Mass fraction] 99 % Winter Rojo MD Work Phone: [facility] 02-19-2022 11:59-0500 Systolic blood pressure 129 mm[Hg] Winter Rojo MD Work Phone: [facility] 02-16-2022 09:45-0500 Body height 149.9 cm Massiel Natarajan APRN.CNP Work Phone: [facility] 02-16-2022 09:45-0500 Body weight 51.08 kg Massiel Natarajan DISINTEGRATOR FEEDER.BAKERY TEAM LEADER Work Phone: [facility] 02-16-2022 09:45-0500 Diastolic blood pressure 84 mm[Hg] Massiel Natarajan DISINTEGRATOR FEEDER.BAKERY TEAM LEADER Work Phone: [facility] 02-16-2022 09:45-0500 Heart rate 86 /min Massiel Natarajan DISINTEGRATOR FEEDER.BAKERY TEAM LEADER Work Phone: [facility] 02-16-2022 09:45-0500 SaO2% (BldA) [Mass fraction] 98 % Massiel Natarajan DISINTEGRATOR FEEDER.BAKERY TEAM LEADER Work Phone: [facility] 02-16-2022 09:45-0500 Systolic blood pressure 134 mm[Hg] Massiel Natarajan DISINTEGRATOR FEEDER.BAKERY TEAM LEADER Work Phone: [facility] 01-22-2022 02:07-0400 Diastolic blood pressure 75 mm[Hg] MD Siobhan Evangelista Work Phone: [facility] 01-22-2022 02:07-0400 Systolic blood pressure 112 mm[Hg] MD Siobhan Evangelista Work Phone: [facility] 01-22-2022 01:56-0400 Heart rate 84 /min MD Siobhan Evangelista Work Phone: [facility] 01-22-2022 01:56-0400 Respiratory rate 18 /min MD Siobhan Evangelista Work Phone: [facility] 01-22-2022 01:56-0400 SaO2% (BldA) [Mass fraction] 95 % MD Siobhan Evangelista Work Phone: [facility] 01-21-2022 17:10-0400 Body height 162.56 cm MD Siobhan Evangeilsta Work Phone: [facility] 01-21-2022 17:10-0400 Body temperature 98.3 [degF] MD Siobhan Evangelista Work Phone: [facility] 01-21-2022 17:10-0400 Body weight 71.4 kg MD Siobhan Evangelista Work Phone: [facility] 01-09-2022 08:51-0400 Body height 147.3 cm Sabiha Pavon MD Work Phone: [facility] 01-09-2022 08:51-0400 Body weight 52.62 kg Sabiha Pavon MD Work Phone: [facility] 01-09-2022 08:51-0400 Diastolic blood pressure 76 mm[Hg] Sabiha Pavon MD Work Phone: [facility] 01-09-2022 08:51-0400 Heart rate 78 /min Sabiha Pavon MD Work Phone: [facility] 01-09-2022 08:51-0400 Systolic blood pressure 117 mm[Hg] Sabiha Pavon MD Work Phone: [facility] 12-30-2021 08:26-0400 Body temperature 98.29 [degF] Winter Rojo MD Work Phone: [facility] 12-30-2021 08:26-0400 Body weight 54.11 kg Winter Rojo MD Work Phone: [facility] 12-30-2021 08:26-0400 Diastolic blood pressure 79 mm[Hg] Winter Rojo MD Work Phone: [facility] 12-30-2021 08:26-0400 Heart rate 94 /min Winter Rojo MD Work Phone: [facility] 12-30-2021 08:26-0400 Respiratory rate 18 /min Winter Rojo MD Work Phone: [facility] 12-30-2021 08:26-0400 SaO2% (BldA) [Mass fraction] 98 % Winter Rojo MD Work Phone: [facility] 12-30-2021 08:26-0400 Systolic blood pressure 133 mm[Hg] Winter Rojo MD Work Phone: [facility] 12-12-2021 16:13-0400 Body temperature 98.5 [degF] MD Siobhan Evangelista Work Phone: [facility] 12-12-2021 16:13-0400 Diastolic blood pressure 83 mm[Hg] MD Siobhan Evangelista Work Phone: [facility] 12-12-2021 16:13-0400 Heart rate 77 /min MD Siobhan Evangelista Work Phone: [facility] 12-12-2021 16:13-0400 Respiratory rate 20 /min MD Siobhan Evangelista Work Phone: [facility] 12-12-2021 16:13-0400 SaO2% (BldA) [Mass fraction] 96 % MD Siobhan Evangelista Work Phone: [facility] 12-12-2021 16:13-0400 Systolic blood pressure 126 mm[Hg] MD Siobhan Evangelista Work Phone: [facility] 12-11-2021 02:17-0400 Body height 149.86 cm MD Siobhan Evangelista Work Phone: [facility] 12-11-2021 02:17-0400 Body weight 59.2 kg MD Siobhan Evangelista Work Phone: [facility] 09-03-2021 12:57-0400 Body height 147.3 cm Samy Targarret PA-C Work Phone: [facility] 09-03-2021 12:57-0400 Body weight 52.16 kg Samy Tarcy PA-C Work Phone: [facility] 09-03-2021 12:57-0400 Diastolic blood pressure 81 mm[Hg] Samy Tarcy PA-C Work Phone: [facility] 09-03-2021 12:57-0400 Heart rate 82 /min Samy Tarcy PA-C Work Phone: [facility] 09-03-2021 12:57-0400 Respiratory rate 20 /min Samy Spivey PA-C Work Phone: [facility] 09-03-2021 12:57-0400 SaO2% (BldA) [Mass fraction] 100 % Samy Spivey PA-C Work Phone: [facility] 09-03-2021 12:57-0400 Systolic blood pressure 125 mm[Hg] Samy Spivey PA-C Work Phone: [facility] Encounters Encounter Date Encounter Type Care Provider Facility Start: 11-21-2024 End: 11-21-2024 Clinisync Result Encounter Hari Ana DO Work Phone: [facility] External Department Unsolicited Start: 11-21-2024 End: 11-21-2024 Clinisync Result Encounter Hari Ana DO Work Phone: [facility] External Department Unsolicited Start: 11-08-2024 End: 11-08-2024 Refill Chris Fam APRN.CNP Work Phone: Neurology [facility] Comment on above: Refill Request Start: 11-01-2024 End: 11-01-2024 Office outpatient visit 15 minutes Hari Ana DO Work Phone: [facility] Comment on above: Pre-op examination; Pelvic pain; Dyspareunia in female; Recurrent UTI Start: 11-01-2024 End: 11-01-2024 Preprocedural examination done Hari Ana DO Work Phone: [facility] Start: 11-01-2024 End: 11-01-2024 ambulatory HARI ANA Not Available Start: 10-03-2024 End: 10-03-2024 Bamboo flowsheet Hari Ana DO Work Phone: [facility] Start: 10-03-2024 End: 10-04-2024 Bamboo flowsheet Hari Ana DO Work Phone: [facility] Start: 10-03-2024 End: 10-04-2024 External Result Encounter Hari Tao DO Work Phone: [facility] External Department Unsolicited Start: 10-03-2024 End: 10-03-2024 Telephone encounter Chris Fam WILIAN.BAKERY TEAM LEADER Work Phone: Neurology [facility] Comment on above: Insurance 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 ion ([employer]) Start: 10-03-2024 End: 10-03-2024 ambulatory HARI ANA Not Available Start: 10-03-2024 End: 10-03-2024 Office outpatient visit 15 minutes Hari Shepardzio DO Work Phone: [facility] Comment on above: Dyspareunia in femal e Start: 09-28-2024 End: 09-28-2024 Telemedicine consultation with patient Chris Fam APRN.BAKERY TEAM LEADER Work Phone: Neurology [facility] Start: 09-28-2024 End: 09-28-2024 ambulatory Chris Sarwat DISINTEGRATOR FEEDER.BAKERY TEAM LEADER Work Phone: Neurology [facility] Comment on above: Chiari I malformatio n (HCC); Intractable migraine without aura and without status migrainosus Start: 09-12-2024 End: 09-12-2024 ambulatory [facility] Start: 07-20-2024 End: 07-20-2024 Office outpatient visit 25 minutes Lorenza Duncan PA-C Work Phone: [facility] Department of [facility] Comment on above: Bilateral lower abdo jax pain (Primary Dx); Elevated ALT measurement; Internal hemorrhoid; Chronic constipation Start: 07-20-2024 End: 07-20-2024 ambulatory [facility] Start: 07-11-2024 End: 07-20-2024 ambulatory Heidi Casiano DISINTEGRATOR FEEDER.BAKERY TEAM LEADER Work Phone: Neurology Comment on above: New prescription Start: 07-10-2024 End: 07-10-2024 Refill Gm Maria ENTERPRISE APPLICATION ADMINISTRATOR [facility] Comment on above: Constipation, unspec ified constipation type (Primary Dx) Start: 06-30-2024 End: 08-22-2024 Telephone encounter Taylor Ojeda CMA [facility] Department of [facility] Start: 06-28-2024 End: 06-28-2024 ambulatory Heidi Casiano APRN.BAKERY TEAM LEADER Work Phone: Neurology Comment on above: Intractable migraine without aura and without status migrainosus (Primary Dx); Chiari I malformation (HCC); Bilateral occipital neuralgia Start: 06-28-2024 End: 06-28-2024 Telemedicine consultation with patient Heidi Casiano APRN.BAKERY TEAM LEADER Work Phone: Neurology Start: 06-26-2024 End: 06-26-2024 Evaluation and management of inpatient PEPE RICHMOND [facility] Start: 06-20-2024 End: 06-20-2024 Office outpatient new 45 minutes Lorenza Duncan PA-C Work Phone: [facility] Comment on above: Terminal ileitis wit h complication (CMS-HCC) (Primary Dx); Constipation, unspecified constipation type; RUQ pain; Bilateral lower abdominal pain; Chronic nausea; Early satiety Start: 06-20-2024 End: 06-20-2024 Refill Pepe Richmond MD Work Phone: [facility] Comment on above: Terminal ileitis wit h complication (CMS-HCC) (Primary Dx); Constipation, unspecified constipation type; RUQ pain; Bilateral lower abdominal pain; Chronic nausea; Early satiety Start: 06-20-2024 End: 06-20-2024 ambulatory [facility] Start: 06-09-2024 End: 06-12-2024 Refill Jhoana Daily MD Work Phone: Neurology Comment on above: Refill Request Start: 05-17-2024 End: 05-17-2024 Emergency department patient visit [facility] Start: 05-17-2024 End: 05-17-2024 Office outpatient new 30 minutes Janis Howell DISINTEGRATOR FEEDER-BAKERY TEAM LEADER Work Phone: [facility] Comment on above: Colitis (Primary Dx) ; RUQ pain; Nausea and vomiting, unspecified vomiting type; Constipation, unspecified constipation type Start: 05-17-2024 End: 05-17-2024 ambulatory [facility] Start: 05-16-2024 End: 05-16-2024 Telephone encounter Janis Howell DISINTEGRATOR FEEDER-BAKERY TEAM LEADER Work Phone: [facility] Start: 03-08-2024 ambulatory [facility] Start: 02-28-2024 End: 02-28-2024 ambulatory [facility] Work Phone: Start: 02-28-2024 End: 02-28-2024 Departed Referred [facility] [place] Work Phone: [facility] Start: 02-22-2024 ambulatory [facility] Start: 02-22-2024 ambulatory [facility] Start: 02-18-2024 End: 02-18-2024 Telephone encounter Irina Finley DO Work Phone: Cardiology Comment on above: Medical Clearance Re quest Chronic migraine w/o aura w/o status migrainosus, not intractable (Primary Dx) Start: 02-16-2024 End: 02-18-2024 ambulatory Brock aWng PA-C Work Phone: Neurology Start: 02-16-2024 End: 02-18-2024 Follow-up encounter Brock Wang PA-C Work Phone: Neurology Comment on above: Headache follow up Need for prophylacti c vaccination and inoculation against influenza (Primary Dx) Start: 02-14-2024 End: 02-14-2024 ambulatory [facility] Start: 02-11-2024 Encounter for genera l adult medical examination without abnormal findings SIOBHAN HOY [facility] Start: 02-11-2024 End: 02-11-2024 ambulatory SIOBHAN Garza Idalia [facility] Start: 02-07-2024 End: 02-07-2024 ambulatory Brock Wang PA-C Work Phone: Neurology Comment on above: Chronic migraine w/o aura w/o status migrainosus, not intractable (Primary Dx); Arnold-Chiari malformation (HCC); Exertional headache Start: 02-07-2024 End: 02-07-2024 Telemedicine consultation with patient Brock Wang PA-C Work Phone: Neurology Start: 02-02-2024 End: 02-02-2024 Patient encounter procedure Irina Finley DO Work Phone: Cardiology Comment on above: Tachycardia (Primary Dx); Palpitations; Post-COVID syndrome; SOB (shortness of breath); Other post infection and related fatigue syndromes; Brain fog; Atypical chest pain; Syncope, unspecified syncope type; Other migraine without status migrainosus, not intractable; Arnold-Chiari malformation (HCC) Start: 02-02-2024 End: 02-02-2024 ambulatory IRINA FINLEY Facility:[facility] Start: 10-27-2023 ambulatory Brock Weaver Work Phone: Neurology Comment on above: Tachycardia Chiari Start: 10-10-2023 Refill Jhoana Daily MD Work Phone: Neurology Comment on above: Refill Request Start: 09-01-2023 End: 09-01-2023 Orders Only Mario Figueroa DISINTEGRATOR FEEDER-BAKERY TEAM LEADER Work Phone: [facility] Start: 08-27-2023 End: 08-27-2023 Patient encounter procedure Pulm Fct Lab 3- A110 Pulmonary Medicine Comment on above: SOB (shortness of br eath) (Primary Dx) Start: 08-24-2023 Telephone encounter Cristy Dawkins HAULAGE ENGINE OPERATOR Pulmonary Medicine Comment on above: Appointment Start: 08-17-2023 End: 08-17-2023 Patient encounter procedure Irina Finley DO Work Phone: Cardiology Comment on above: Tachycardia (Primary Dx); Palpitations; Post-COVID syndrome; SOB (shortness of breath); Other post infection and related fatigue syndromes; Brain fog; Atypical chest pain Start: 07-01-2023 Refill Jhoana Daily MD Work Phone: Neurology Comment on above: Refill Request Start: 06-25-2023 Refill Jhoana Daily MD Work Phone: Neurology Comment on above: Refill Request Start: 06-03-2023 End: 06-03-2023 Office outpatient new 20 minutes James Pinto MD Work Phone: Preventive Cardiology Comment on above: POTS (postural ortho static tachycardia syndrome) (Primary Dx) Start: 02-26-2023 End: 02-26-2023 ambulatory Pulm Pulmonary Medicine [facility] Comment on above: Spirometry Start: 02-26-2023 End: 02-26-2023 Patient encounter procedure Pulm Fct Lab [facility] Comment on above: SOB (shortness of [...] phone call. ) Start: 12-23-2022 Orders Only Sujit Dougherty MD Work Phone: Cardiology Comment on above: Cardiomyopathy, kevyn schemic (HCC) (Primary Dx) Start: 11-09-2022 Telephone encounter No Pcp DISINTEGRATOR FEEDER Ref erring Physician Comment on above: External Referrals/r esources Start: 10-26-2022 Telephone encounter Massiel farris DISINTEGRATOR FEEDER.BAKERY TEAM LEADER Work Phone: Neurology Comment on above: Received Outside Med ical Records Start: 06-23-2022 Telephone encounter Massiel farris APRN.BAKERY TEAM LEADER Work Phone: Neurology Comment on above: Received outside [facility] report Start: 06-03-2022 End: 06-04-[address] HARI PEREZ . 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 Start: 03-25-2022 End: 03-25-2022 Patient encounter procedure Laury Magaña MD Work Phone: Neurology Comment on above: Convulsions, unspeci fied convulsion type (HCC) (Primary Dx); Transient loss of consciousness Start: 03-06-2022 End: 03-06-2022 Patient encounter procedure Syncope Opd Nurse Work Phone: Cardiology Comment on above: Syncope and collapse (Primary Dx) Start: 02-27-2022 ambulatory Massiel bush APRN.BAKERY TEAM LEADER Work Phone: Neurology Comment on above: Driving TILT TABLE TEST INST RUCTIONS - READ CAREFULLY Start: 02-27-2022 E-mail encounter fro m caregiver Rosi Garcia RN [facility] Start: 02-23-2022 Telephone encounter Massiel farris APRN.BAKERY TEAM LEADER Work Phone: Neurology Comment on above: Received Outside Med ical Records ([facility]) Other (Work restrict ion questions) Start: 02-19-2022 End: 02-19-2022 Patient encounter procedure Winter Rojo MD Work Phone: [facility] Comment on above: Cervical spine insta bility (Primary Dx) Start: 02-19-2022 Telephone encounter Massiel Vasquez Brandon farris DISINTEGRATOR FEEDER.BAKERY TEAM LEADER Work Phone: Neurology Comment on above: Received Outside Med ical Records ([facility] ) Start: 02-18-2022 ambulatory Massiel Benjaminerin bush DISINTEGRATOR FEEDER.BAKERY TEAM LEADER Work Phone: Neurology Comment on above: Employer creating a position Start: 02-17-2022 Telephone encounter Massiel Vasquez Brandon farris DISINTEGRATOR FEEDER.BAKERY TEAM LEADER Work Phone: Neurology Comment on above: Patient Question (Le tter request) Received Outside Med ical Records ([facility] ) Start: 02-16-2022 End: 02-16-2022 Patient encounter procedure Massiel Vasquez Delgado DISINTEGRATOR FEEDER.BAKERY TEAM LEADER Work Phone: Neurology Comment on above: Transient loss of co nsciousness (Primary Dx); Hand weakness; Dysphagia, unspecified type; Tachycardia; Orthostatic lightheadedness; Functional movement disorder; Tremulousness Start: 01-27-2022 Telephone encounter Nancy Carrillo RN Cardiology Comment on above: 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 Start: 01-22-2022 End: 01-22-2022 ambulatory Winter Rojo MD Work Phone: [facility] Comment on above: Syncope and collapse (Primary Dx) Start: 01-22-2022 End: 01-22-2022 Telemedicine consultation with patient Winter Rojo MD Work Phone: [facility] Start: 01-21-2022 End: 01-22-2022 Emergency department patient visit MD Siobhan Evangelista Work Phone: [facility] Start: 01-21-2022 Telephone encounter Winter Rojo MD Work Phone: [facility] Comment on above: 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 Start: 01-20-2022 Telephone encounter Winter Rojo MD Work Phone: [facility] Comment on above: 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 Start: 01-09-2022 End: 01-09-2022 Patient encounter procedure Sabiha Pavon MD Work Phone: Neurology Comment on above: Syncope and collapse (Primary Dx); [id number] syndrome manifesting as chronic neurologic symptoms; [id number] syndrome manifesting as chronic headache Start: 12-30-2021 ambulatory Winter Rojo MD Work Phone: [facility] Start: 12-30-2021 End: 12-30-2021 Patient encounter procedure Winter Rojo MD Work Phone: [facility] Comment on above: Pablito cerda me (HCC) (Primary Dx) PT referral Start: 12-11-2021 End: 12-12-2021 Evaluation and management of inpatient MD Siobhan Evangelista Work Phone: [facility] [place] Start: 11-24-2021 Telephone encounter Winter Rojo MD Work Phone: [facility] Comment on above: Received cardiac EKG report from [employer] report via On[employer] Start: 11-14-2021 End: 11-15-[address] SIOBHAN EVANGELISTA . Facility:[facility] Start: 10-20-2021 ambulatory Winter Rojo MD Work Phone: [facility] Comment on above: Worsening symptoms Start: 09-23-2021 Chart abstracting Samy Spivey PA-C Work Phone: [facility] Comment on above: Scans (1 CD rcvd, sc anned, and given to Samy from [facility].) Start: 09-22-2021 Telephone encounter Boat Dock Operator EDUARDO [facility] Comment on above: Patient Update Start: 09-12-2021 End: 09-13-[address] DOCTOR CELESTE Facility:[facility] Start: 09-10-2021 Chart abstracting Samy Spivey PA-C Work Phone: [facility] Comment on above: Received Outside Med ical Records (The [facility] MRI results rcvd. In scanned documents.) Start: 09-10-2021 End: 09-11-[address] SIOBHAN EVANGELISTA . Facility: Start: 09-03-2021 Chart abstracting Samy Spivey PA-C Work Phone: [facility] Comment on above: Scans (1CD and repor ts from [facility] rcvd. CD scanned and and all given to Samy.) Start: 09-03-2021 End: 09-03-2021 Patient encounter procedure Samy Spivey PA-C Work Phone: [facility] Comment on above: Chiari malformation type I (HCC) (Primary Dx); Syringomyelia and syringobulbia (HCC) Start: 08-06-2021 End: 08-07-[address] SIOBHAN EVANGELISTA . Facility: Start: 12-10-2020 End: 12-10-2020 ambulatory Les HE Facility:[id number] Start: 06-07-2018 End: 06-08-2018 Patient encounter procedure CECI GRADY Facility:[facility] Medicine & Rehabilitation Start: 05-10-2018 Patient encounter procedure CECI GRADY Facility:[facility] Medicine [facility] Procedures Date Procedure Procedure Detail Performing Clinician Start: 11-21-2024 ECG 12-LEAD Hari Fazi o DO Work Phone: Start: 10-03-2024 RECURRENT VAGINITIS (HTRX) Hari Ana DO Work Phone: Start: 10-03-2024 Urnls dip stick/tabl et rgnt non-auto w/o micrscp Hari Ana DO Work Phone: Start: 08-27-2023 Cardiopulmonary exer cise testing Irina Finley DO Work Phone: Start: 02-26-2023 Brncdilat rspse spmt ry pre&post-brncdilat admn Vijaya King DISINTEGRATOR FEEDER.BAKERY TEAM LEADER Work Phone: Start: 11-20-2022 Microscopic observat ion [Identifier] in Cervix by Cyto stain Hari Perez DO Work Phone: Start: 01-21-2022 MRI of cervical spin e without contrast MD Siobhan Evangelista Work Phone: Start: 01-21-2022 XR pre/post mri xray MD Siobhan Evangelista Work Phone: Start: 12-11-2021 MRI of head MD Siobhan Evangelista Work Phone: SARS Antigen (LFIA) MD Deric Evangelista Work Phone: Plan of Treatment Date Care Activity Detail Author Start: 11-21-2027 Screening for malignant neoplasm of cervix [facility] Start: 07-20-2025 Adult BMI Screening Adult BMI Screening [facility] Start: 07-20-2025 Tobacco Screening Tobacco Screening [facility] Start: 06-26-2025 Adult BMI Screening Adult BMI Screening [facility] Start: 06-26-2025 Tobacco Screening Tobacco Screening [facility] Start: 06-20-2025 Adult BMI Screening Adult BMI Screening [facility] Start: 06-20-2025 Tobacco Screening Tobacco Screening [facility] Start: 05-18-2025 Tobacco Screening Tobacco Screening [facility] Start: 05-17-2025 Adult BMI Screening Adult BMI Screening [facility] Start: 02-10-2025 Adult BMI Screening Adult BMI Screening [facility] Start: 12-29-2024 End: 12-29-2024 ambulatory 12/29/2024 8:30 AM EDT [facility] Neurology Headache [facility] [address] [place] [address] Chris Fam, DISINTEGRATOR FEEDER.BAKERY TEAM LEADER [address] [place] [address] re-occuring migraines Neurology Headache [facility] Comment on above: re-occuring migraines Start: 12-11-2024 Influenza vaccination [facility] Start: 12-07-2024 End: 12-07-2024 Patient encounter procedure [facility] Start: 11-01-2024 End: 11-01-2024 Patient encounter procedure 11/01/2024 11:10 AM EDT Consult [facility] [address] [place] [phone] Hari Perez DO [address] [place] [address] [facility] Start: 10-19-2024 End: 10-19-2024 Patient encounter procedure 10/19/2024 7:15 AM EDT Off ice Visit [facility] [address] [facility] [address] [place] [id number] Lorenza Duncan PA-C [address] [facility] [address] [place] [address] [facility]ly [facility] Start: 09-28-2024 End: 09-28-2024 ambulatory 09/28/2024 1:30 PM EDT [facility] Neurology Headache [facility] [address] [place] [address] Chris Fam APRN.BAKERY TEAM LEADER [address] [place] [address] medication side effects Neurology Headache [facility] Comment on above: medication side effects Start: 09-12-2024 End: 09-12-2024 Patient encounter procedure 09/12/2024 6:45 AM EDT Appointment [facility] [address] [place] [phone] [facility] Start: 06-28-2024 End: 07-28-2025 MR Brain WO contrast MRI BRAIN WO IVCON Radiology Routine Chiari I malformation (HCC) Intractable migraine without aura and without status migrainosus Expected: 06/28/2024, Expires: 07/28/2025 [facility] Work Phone: Comment on above: Expected: 06/28/2024, Expires: Start: 06-28-2024 End: 07-28-2025 MRA Head vessels WO contrast MRA BRAIN WO IVCON Radiol ogy Routine Chiari I malformation (HCC) Intractable migraine without aura and without status migrainosus Expected: 06/28/2024, Expires: 07/28/2025 [facility] Comment on above: Expected: 06/28/2024, Expires: Start: 06-26-2024 End: 06-26-2024 Admission to same day surgery center 06/26/2024 7:00 AM EDT - 06/26/2024 8:00 AM EDT Surgery [facility]oscopy [address] [facility] [place] [phone] Pepe Richmond MD [address] [facility] [place] [address] ESOPHAGOGASTRODUODENOSCOPY DIAGNOSTIC [98822 (CPT )] [facility] Comment on above: ESOPHAGOGASTRODUODENOSCOPY DIAGNOSTIC [4 7950 (CPT )] Start: 06-26-2024 End: 06-26-2024 Colonoscopy flx dx w/collj spec when pfrmd COLONOSCOPY DIAGNOSTIC / SCREENING Terminal ileitis with complication constipation, unspecified type bilateral lower abdominal pain RUQ pain chronic nausea early satiety 06/26/2024 7:00 AM EDT [facility] Start: 06-26-2024 End: 06-26-2024 Esophagogastroduodenoscopy transoral diagnostic ESOPHAGOGASTRODUODENOSCOPY DIAGNOSTIC Terminal ileitis with complication constipation, unspecified type bilateral lower abdominal pain RUQ pain chronic nausea early satiety 06/26/2024 7:00 AM EDT [facility] Start: 06-26-2024 Subsequent hospital visit by physician 06/26/2024 7:00 AM EDT Hospital Encounter [facility]oscopy [address] [place] [phone] Pepe Richmond MD [address] [facility] [place] [address] [facility] Start: 06-23-2024 End: 06-23-2024 Patient encounter procedure 06/23/2024 8:30 AM EDT Off ice Visit Neurology [address] [place] [address] Jhoana Daily MD [address] [place] [address] follow up Neurology Comment on above: follow up Start: 05-17-2024 End: 05-17-2024 Patient encounter procedure 05/17/2024 2:00 PM EST Off ice Visit [facility] [address] [place] [address] Janis Howell APRN-BAKERY TEAM LEADER [address] [place], [place] [phone] [facility] General Surgery Start: 04-23-2024 Tobacco Screening Tobacco Screening [facility] Start: 03-31-2024 End: 03-31-2024 Follow-up encounter 03/31/2024 3:15 PM EST [facility] Neurology [address] [place] [address] Brock Wang PA-C [address] [place], [place] [phone] headache follow up,MyChart request Neurology Comment on above: headache follow up,MyChart request Start: 02-07-2024 End: 02-07-2024 Follow-up encounter 02/07/2024 11:00 AM EDT Distance [facility] Neurology [address] [place] [address] Brock Wang PA-C [address] [place], [place] [phone] headache follow up,MyChart request Neurology Comment on above: headache follow up,MyChart request Start: 02-02-2024 End: 02-02-2024 Patient encounter procedure 02/02/2024 11:45 AM EDT Of fice Visit Cardiology [address] [id number] Irina Finley, [address] [place] [address] Syncope Cardiology Comment on above: Syncope Start: 02-02-2024 End: 02-02-2024 ambulatory 02/02/2024 11:00 AM EDT Results Only Cardiology [address] [place] [address] Syncope Cardiology Comment on above: Syncope Start: 01-17-2024 Adult BMI Screening Adult BMI Screening [facility] Start: 12-12-2023 Covid-19 Vaccine () Covid-19 Vaccine () [facility] Start: 12-12-2023 Influenza vaccination [facility] Start: 08-27-2023 End: 08-27-2023 Patient encounter procedure Pulmonary Medicine Comment on above: SOB PT CALLED SL SOB Start: 04-12-2023 Depression Assessment Depression Assessment [facility] Start: 02-26-2023 End: 05-28-2023 25-hydroxyvitamin D3 [...] constipation Cognitive changes Expected: 02/26/2023, Expires: 05/28/2023 [facility] Work Phone: Comment on above: Expected: 02/26/2023, Expires: Start: 02-26-2023 End: 05-28-2023 C reactive protein [...] constipation Cognitive changes Expected: 02/26/2023, Expires: 05/28/2023 [facility] Work Phone: Comment on above: Expected: 02/26/2023, Expires: Start: 02-26-2023 End: 05-28-2023 CBC panel - Blood by Automated count CBC Lab Routine Post-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 (PASC) SOB (shortness of breath) Cough, unspecified type Chest pressure Palpitations POTS (postural orthostatic tachycardia syndrome) Brain fog Difficulty concentrating Memory changes Headaches Neck pain Chronic fatigue Activity intolerance Dizziness Neck stiffness Irritable bowel syndrome with constipation Cognitive changes Expected: 02/26/2023, Expires: 05/28/2023 [facility] Work Phone: Comment on above: Expected: 02/26/2023, Expires: Start: 02-26-2023 End: 05-28-2023 Cobalamin (Vitamin B12) [...] constipation Cognitive changes Expected: 02/26/2023, Expires: 05/28/2023 [facility] Work Phone: Comment on above: Expected: 02/26/2023, Expires: 4 Start: 02-26-2023 End: 05-28-2023 Comprehensive metabolic 2000 [...] constipation Cognitive changes Expected: 02/26/2023, Expires: 05/28/2023 [facility] Work Phone: Comment on above: Expected: 02/26/2023, Expires: 4 Start: 02-26-2023 End: 05-28-2023 Ferritin [Mass/volume] in Serum or Plasma FERRITIN BLD Lab Routine Post-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 (PASC) SOB (shortness of breath) Cough, unspecified type Chest pressure Palpitations POTS (postural orthostatic tachycardia syndrome) Brain fog Difficulty concentrating Memory changes Headaches Neck pain Chronic fatigue Activity intolerance Dizziness Neck stiffness Irritable bowel syndrome with constipation Cognitive changes Expected: 02/26/2023, Expires: 05/28/2023 [facility] Work Phone: Comment on above: Expected: 02/26/2023, Expires: Start: 02-26-2023 End: 05-28-2023 Folate [Mass/volume] in Serum or Plasma FOLATE SERUM Lab Routine Post-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 (PASC) SOB (shortness of breath) Cough, unspecified type Chest pressure Palpitations POTS (postural orthostatic tachycardia syndrome) Brain fog Difficulty concentrating Memory changes Headaches Neck pain Chronic fatigue Activity intolerance Dizziness Neck stiffness Irritable bowel syndrome with constipation Cognitive changes Expected: 02/26/2023, Expires: 05/28/2023 [facility] Work Phone: Comment on above: Expected: 02/26/2023, Expires: 4 Start: 02-26-2023 End: 05-28-2023 OMEGACHECK OMEGACHECK Lab Routine Post-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 (PASC) SOB (shortness of breath) Cough, unspecified type Chest pressure Palpitations POTS (postural orthostatic tachycardia syndrome) Brain fog Difficulty concentrating Memory changes Headaches Neck pain Chronic fatigue Activity intolerance Dizziness Neck stiffness Irritable bowel syndrome with constipation Cognitive changes Expected: 02/26/2023, Expires: 05/28/2023 [facility] Work Phone: Comment on above: Expected: 02/26/2023, Expires: 4 Start: 02-26-2023 End: 05-28-2023 TRACE ELEMENTS/TPN TRACE ELEMENTS/TPN Lab Routi ne Post-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 (PASC) SOB (shortness of breath) Cough, unspecified type Chest pressure Palpitations POTS (postural orthostatic tachycardia syndrome) Brain fog Difficulty concentrating Memory changes Headaches Neck pain Chronic fatigue Activity intolerance Dizziness Neck stiffness Irritable bowel syndrome with constipation Cognitive changes Expected: 02/26/2023, Expires: 05/28/2023 [facility] Work Phone: Comment on above: Expected: 02/26/2023, Expires: 4 Start: 12-11-2022 Covid-19 Vaccine ( season) Covid-19 Vaccine () [facility] Start: 12-11-2022 Influenza vaccination [facility] Start: 05-29-2022 End: 07-29-2022 Comprehensive metabolic 2000 panel - Serum or Plasma [facility] Work Phone: Comment on above: Expected: 05/29/2022, Expires: 3 Start: 04-12-2022 DEPRESSION ASSESSMENT DEPRESSION ASSESSMENT [facility] Start: 03-25-2022 End: 03-25-2023 SARS-CoV-2 (COVID-19) RNA [Presence] in Respiratory specimen by ANABELL with probe detection PRE-PROCEDURE & PRE-OPERATIVE COVID Microbiology Routine Transient loss of consciousness Convulsions, unspecified convulsion type (HCC) Expected: 03/25/2022, Expires: 03/25/2023 [facility] Work Phone: Comment on above: Expected: 03/25/2022, Expires: 3 Start: 02-16-2022 End: 04-18-2022 Alpha tocopherol [Mass/volume] in Serum or Plasma VITAMIN E/TOCOPHEROL Lab Routine Tremulousness Expected: 02/16/2022, Expires: 04/18/2022 [facility] Work Phone: Comment on above: Expected: 02/16/2022, Expires: 3 Start: 02-16-2022 End: 04-18-2022 Ceruloplasmin [Mass/volume] in Serum or Plasma CERULOPLASMIN BLD Lab Routine Tremulousness Expected: 02/16/2022, Expires: 04/18/2022 [facility] Work Phone: Comment on above: Expected: 02/16/2022, Expires: Start: 12-12-2021 End: 12-12-2021 [facility] Start: 12-11-2021 Influenza vaccination [facility] Start: 12-11-2021 Referral to neurologist [facility] Start: 12-11-2021 Referral to swinging cut off saw operator [facility] Start: 12-11-2021 Hospital admission [facility] Start: 05-09-2021 COVID-19 VACCINE (2 - Booster for Ana series) COVID-19 VACCINE (2 - Booster for Ana series) [facility] Start: 04-12-2021 DEPRESSION ASSESSMENT DEPRESSION ASSESSMENT [facility] Start: 2020 HPV TESTING HPV TESTING [facility] Start: 2020 Screening for malignant neoplasm of cervix HPV Testing [facility] Start: 02-07-2018 DTaP,Tdap and Td Vaccines (8 - Td or Tdap) DTaP,Tdap and Td Vaccines (8 - Td or Tdap) [facility] Start: 11-26-2011 PAP TESTING PAP TESTING [facility] Start: 11-26-2011 Screening for malignant neoplasm of cervix [facility] Start: 2009 DTaP,Tdap and Td Vaccines (1 - Tdap) DTaP,Tdap and Td Vaccines (1 - Tdap) [facility] Start: 2009 Hepatitis B Vaccine (1 of 3 - 19+ 3-dose series) Hepatitis B Vaccine (1 of 3 - 19+ 3-dose series) [facility] Start: 2009 Urine microalbumin profile [facility] Start: 2008 HEPATITIS C SCREENING HEPATITIS C SCREENING [facility] Start: 2008 Hepatitis C screening Hepatitis C Screening [facility] Start: 2008 HIV SCREENING HIV SCREENING [facility] Start: 2008 HIV screening HIV Screening [facility] Start: 2002 Adult depression screening assessment DEPRESSION SCREENING [facility] Start: 11-26-1995 COVID-19 VACCINE (#1) COVID-19 VACCINE (#1) [facility] Start: 1990 HEPATITIS B (1 of 3 - 3-dose series) HEPATITIS B (1 of 3 - 3-dose series) [facility] [facility] Start: 1990 Hepatitis B Vaccine (1 of 3 - 3-dose series) Hepatitis B Vaccine (1 of 3 - 3-dose series) [facility] End: 06-20-2025 C-reactive protein C-reactive protein Lab Routi ne Terminal ileitis with complication (CMS-HCC) 1 Occurrences starting 06/20/2024 until 06/20/2025 [facility] Comment on above: 1 Occurrences starting 06/20/2024 until 06/20/2025 End: 07-20-2025 C-reactive protein C-reactive protein Lab Routi ne Bilateral lower abdominal pain 1 Occurrences starting 07/20/2024 until 07/20/2025 [facility] Comment on above: 1 Occurrences starting 07/20/2024 until 07/20/2025 End: 06-20-2025 Calprotectin, F Calprotectin, F Lab Routine Terminal ileitis with complication ([facility]) 1 Occurrences starting 06/20/2024 until 06/20/2025 [facility] Comment on above: 1 Occurrences starting 06/20/2024 until 06/20/2025 End: 09-15-2024 CARDIOPULMONARY EXERCISE TEST CARDIOPULMONARY EXERCISE TEST PFT Routine SOB (shortness of breath) 1 Occurrences starting 08/17/2023 until 09/15/2024 [facility] Work Phone: Comment on above: 1 Occurrences starting 08/17/2023 until 09/15/2024 Cardiovascular funct ion eval w/tilt table w/mntr TILT TABLE EVALUATION Cardiology Routine Syncope and collapse Ordered: 01/09/2022 [facility] Work Phone: Comment on above: Ordered: 01/09/2022 End: 06-20-2025 Colonoscopy Colonoscopy GI Routine Terminal ileitis with complication ([facility]-H[facility]) Constipation, unspecified constipation type Bilateral lower abdominal pain 1 Occurrences starting 06/20/2024 until 06/20/2025 [employer] Comment on above: 1 Occurrences starting 06/20/2024 until 06/20/2025 Creatinine [Mass/vol ume] in Urine [facility] Work Phone: End: 03-21-2023 Ct cervical spine w/o contrast material CT CERVICAL SPINE WO IVCON Radiology Routine Cervical spine instability 1 Occurrences starting 02/19/2022 until 03/21/2023 [facility] Work Phone: Comment on above: 1 Occurrences starting 02/19/2022 until 03/21/2023 End: 12-24-2023 ECG COMPLETE ECG COMPLETE ECG Routine Cardiomyopathy, nonischemic (HCC) 1 Occurrences starting 12/23/2022 until 12/24/2023 [facility] Work Phone: Comment on above: 1 Occurrences starting 12/23/2022 until 12/24/2023 End: 02-11-2024 ECG COMPLETE ECG COMPLETE ECG Routine Chronic systolic congestive heart failure (HCC) 1 Occurrences starting 02/10/2023 until 02/11/2024 [facility] Work Phone: Comment on above: 1 Occurrences starting 02/10/2023 until 02/11/2024 End: 08-16-2024 ECG COMPLETE ECG COMPLETE ECG Routine Tachycardia 1 Occurrences starting 08/17/2023 until 08/16/2024 [facility] Comment on above: 1 Occurrences starting 08/17/2023 until 08/16/2024 End: 02-16-2023 EMG(NEURO/NI) EMG(NEURO/NI) EMG Routine Green nd weakness 1 Occurrences starting 02/16/2022 until 02/16/2023 [facility] Work Phone: Comment on above: 1 Occurrences starting 02/16/2022 until 02/16/2023 End: 02-16-2023 EPIL EEG LONG EPIL EEG LONG NEUROLOGY Routine Transient loss of consciousness 1 Occurrences starting 02/16/2022 until 02/16/2023 [facility] Work Phone: Comment on above: 1 Occurrences starting 02/16/2022 until 02/16/2023 EPIL VEEG ADMIT TO EMU/PMU EPIL VEEG ADMIT TO EMU/PMU NEUROLOGY Routine Transient loss of consciousness Convulsions, unspecified convulsion type (HCC) Ordered: 03/25/2022 [facility] Work Phone: Comment on above: Ordered: 03/25/2022 End: 06-20-2025 Erythrocyte sedimentation rate Erythrocyte Sedimentati on Rate (ESR) Lab Routine Terminal ileitis with complication (CMS-HCC) 1 Occurrences starting 06/20/2024 until 06/20/2025 [employer] Comment on above: 1 Occurrences starting 06/20/2024 until 06/20/2025 End: 07-20-2025 Erythrocyte sedimentation rate Erythrocyte Sedimentati on Rate (ESR) Lab Routine Bilateral lower abdominal pain 1 Occurrences starting 07/20/2024 until 07/20/2025 [employer] Work Phone: Comment on above: 1 Occurrences starting 07/20/2024 until 07/20/2025 End: 06-20-2025 Esophagogastroduodenoscopy EGD GI Routine RUQ pain Chronic nausea Early satiety 1 Occurrences starting 06/20/2024 until 06/20/2025 [employer] Work Phone: Comment on above: 1 Occurrences starting 06/20/2024 until 06/20/2025 End: 07-20-2025 Hepatitis panel, acute Hepatitis panel, acute Lab Routine Elevated ALT measurement 1 Occurrences starting 07/20/2024 until 07/20/2025 [employer] Comment on above: 1 Occurrences starting 07/20/2024 until 07/20/2025 End: 07-20-2025 Liver panel Liver panel Lab Routine Elevated ALT measurement 1 Occurrences starting 07/20/2024 until 07/20/2025 [employer] Comment on above: 1 Occurrences starting 07/20/2024 until 07/20/2025 End: 03-11-2024 LUNG DIFFUSION CAPACITY (DLCO) LUNG DIFFUSION CAPACITY (DLCO) PFT Routine SOB (shortness of breath) 1 Occurrences starting 02/12/2023 until 03/11/2024 [facility] Work Phone: Comment on above: 1 Occurrences starting 02/12/2023 until 03/11/2024 End: 03-11-2024 LUNG VOLUMES LUNG VOLUMES PFT Routine SOB (shortness of breath) 1 Occurrences starting 02/12/2023 until 03/11/2024 [facility] Work Phone: Comment on above: 1 Occurrences starting 02/12/2023 until 03/11/2024 Metanephrine Free [Mass/volume] in Serum or Plasma [facility] Work Phone: Metanephrines [Mass/ volume] in 24 hour Urine [facility] Work Phone: Metanephrines/Creati nine [Mass Ratio] in Urine [facility] Work Phone: End: 03-08-2025 MR Brain WO and W contrast IV MRI BRAIN WO/W IVCON Rad iology Routine Chronic migraine w/o aura w/o status migrainosus, not intractable Arnold-Chiari malformation (HCC) Exertional headache 1 Occurrences starting 02/07/2024 until 03/08/2025 [facility] Work Phone: Comment on above: 1 Occurrences starting 02/07/2024 until 03/08/2025 End: 03-08-2025 MRA Head vessels WO contrast MRA BRAIN WO IVCON Radiol ogy Routine Chronic migraine w/o aura w/o status migrainosus, not intractable Arnold-Chiari malformation (HCC) Exertional headache 1 Occurrences starting 02/07/2024 until 03/08/2025 [facility] Comment on above: 1 Occurrences starting 02/07/2024 until 03/08/2025 End: 06-28-2023 Mra head w/o & w/contrast material MRV BRAIN WO/W IVCON Radiology Routine Intractable migraine with aura without status migrainosus Positional headache Arnold-Chiari malformation (HCC) 1 Occurrences starting 05/29/2022 until 06/28/2023 [facility] Work Phone: Comment on above: 1 Occurrences starting 05/29/2022 until 06/28/2023 End: 06-28-2023 Mri brain brain stem w/o w/contrast material MRI BRAIN WO/W IVCON Radiology Routine Intractable migraine with aura without status migrainosus Positional headache Arnold-Chiari malformation (HCC) 1 Occurrences starting 05/29/2022 until 06/28/2023 [facility] Work Phone: Comment on above: 1 Occurrences starting 05/29/2022 until 06/28/2023 End: 10-03-2022 Mri spinal canal cervical w/o & w/contr matrl MRI CERVICAL SPINE WO/W IVCON Radiology Routine Syringomyelia and syringobulbia (HCC) 1 Occurrences starting 09/03/2021 until 10/03/2022 [facility] Work Phone: Comment on above: 1 Occurrences starting 09/03/2021 until 10/03/2022 End: 10-03-2022 Mri spinal canal lumbar w/o & w/contr matrl MRI LUMBAR SPINE WO/W IVCON Radiology Routine Syringomyelia and syringobulbia (HCC) 1 Occurrences starting 09/03/2021 until 10/03/2022 [facility] Work Phone: Comment on above: 1 Occurrences starting 09/03/2021 until 10/03/2022 End: 10-03-2022 Mri spinal canal thoracic w/o & w/contr matrl MRI THORACIC SPINE WO/W IVCON Radiology Routine Syringomyelia and syringobulbia (HCC) 1 Occurrences starting 09/03/2021 until 10/03/2022 [facility] Work Phone: Comment on above: 1 Occurrences starting 09/03/2021 until 10/03/2022 Normetanephrine [Mas s/volume] in 24 hour Urine [facility] Work Phone: Normetanephrine measurement [facility] Work Phone: Patient Education Central Spinal Cord Syn drome [facility] Work Phone: Patient referral [facility] Work Phone: End: 10-03-2022 Radex spine cervical 2 or 3 views XR CERVICAL 2V FLEX/EXT Radiology Routine Syringomyelia and syringobulbia (HCC) 1 Occurrences starting 09/03/2021 until 10/03/2022 [facility] Work Phone: Comment on above: 1 Occurrences starting 09/03/2021 until 10/03/2022 End: 03-11-2024 SIX MINUTE WALK SIX MINUTE WALK PFT Routine SOB (shortness of breath) 1 Occurrences starting 02/12/2023 until 03/11/2024 [facility] Work Phone: Comment on above: 1 Occurrences starting 02/12/2023 until 03/11/2024 End: 03-11-2024 SPIROMETRY - BASELINE AND POST DILATOR SPIROMETRY - BASELINE AND POST DILATOR PFT Routine SOB (shortness of breath) 1 Occurrences starting 02/12/2023 until 03/11/2024 [facility] Work Phone: Comment on above: 1 Occurrences starting 02/12/2023 until 03/11/2024 [facility] Immunizations Immunization Date Immunization Notes Care Provider Devyn quinteros 02-16-2024 influenza, seasonal, injectable, preservative free Mario Figueroa DISINTEGRATOR [employer]ADER Work Phone: [facility] 02-16-2024 Immunization, In Clinic,; Translations: [Drug or medicament (substance)] Mario Figueroa DISINTEGRATOR [employer] Work Phone: [facility] 02-16-2024 influenza virus vaccine, unspecified formulation [facility] 03-10-2022 influenza, injectabl e, quadrivalent, preservative free Mario Figueroa DISINTEGRATOR [employer] LEADER Work Phone: [facility] 03-10-2022 influenza virus vaccine, unspecified formulation Sujit Dougherty MD Work Phone: [facility] 03-14-2021 COVID-19 mRNA-1273 (Moderna) MD Siobhan Evangelista Work Phone: [facility] Payers Date Payer Category Payer Self-pay [id number] 2024 Medicaid [id number] 2024 Medicaid [id number] 2021 Unknown MMO MMO [employer] [id number] 2021-Present [phone] [address] [place] [address] O [id number] 2019 Unknown [id number] 2018 Private Health Insurance [id number] 2018 Unknown 2018 Unknown [id number] 1990 Unknown [id number] 2.16.840.1.221370.3.579.2.1 96 1990 Unknown [id number] 2.16.840.1.434083.3.579.2.5 93 1990 Unknown [id number] 2.16.840.1.247057.3.579.2.5 93 1990 Unknown [id number] 2.16.840.1.681664.3.579.2.5 93 1990 Unknown [id number] 2.16.840.1.671344.3.579.2.5 93 1990 Unknown [id number] 2.16.840.1.706515.3.579.2.5 93 1990 Unknown [id number] 2.16.840.1.703425.3.579.2.7 27 1990 Unknown [id number] 2.16.840.1.342860.3.579.2.1 286 1990 Unknown [id number] 2.16.840.1.886179.3.579.2.1 286 1990 Unknown [id number] 2.16.840.1.594375.3.579.2.1 286 1990 Unknown [id number] 2.16.840.1.065270.3.579.2.1 286 1990 Unknown [id number] 2.840.1.561755.3.579.2.1 286 1990 Unknown [id number] 2.840.1.765040.3.579.2.1 286 1990 Unknown [id number] 2.840.1.118786.3.579.2.1 286 1990 Unknown [id number] 2.840.1.744143.3.579.2.1 286 1990 Unknown [id number] 2.840.1.520282.3.579.2.1 286 1990 Unknown [id number] 2.840.1.724560.3.579.2.1 286 1990 Unknown [id number] .1.881095.3.579.2.1 286 1990 Unknown [id number] 2.840.1.978354.3.579.2.1 286 1990 Unknown [id number] 2.0.1.748227.3.579.2.1 286 1990 Unknown [id number] .840.1.132536.3.579.2.1 286 1990 Unknown [id number] .1.195226.3.579.2.1 286 1990 Unknown [id number] .840.1.407453.3.579.2.1 286 1990 Unknown [id number] .840.1.218739.3.579.2.1 286 1990 Unknown [id number] 2.840.1.737929.3.579.2.1 286 1990 Unknown [id number] 840.1.292979.3.579.2.1 286 1990 Unknown [id number] 05.28.840.1.118126.3.579.2.1 286 1990 Unknown [id number] 2.16.840.1.283339.3.579.2.1 286 1990 Unknown [id number] 2.16.840.1.383409.3.579.2.1 286 1990 Unknown [id number] 2.16.840.1.552998.3.579.2.1 259 1990 Unknown [id number] 2.16.840.1.381420.3.579.2.1 259 1959 Self-pay [id number] 1959 Unknown [id number] Unknown [id number] 2.16.840.1.250761.3.579.2.5 31 Social History Date Type Detail Facility Start: 09-03-2021 End: 10-06-2022 Tobacco smoking status NHIS Ex-smoker [facility] Start: 09-03-2021 End: 02-10-2023 Tobacco use and exposure Smokeless tobacco non-user [facility] Start: 09-03-2021 End: 11-01-2024 Alcohol intake Current drinker of alcohol (finding) [facility] Start: 1990 Sex Assigned At Not on file [facility] Start: 08-24-2021 End: 05-29-2022 Exposure to SARS-CoV-2 (event) Not sure [facility] Start: 04-12-2010 End: 04-12-2011 History of tobacco use Current smoker [facility] Start: 10-25-2021 End: 11-04-2021 Exposure to SARS-CoV-2 (event) Unable to assess [facility] Start: 1990 Sex Assigned At Female [facility] Start: 12-20-2021 End: 12-30-2021 Exposure to SARS-CoV-2 (event) Yes [facility] Work Phone: Start: 01-22-2022 History SDOH Financial 5 [facility] Start: 01-22-2022 History SDOH Food Worry 1 [facility] Start: 01-22-2022 History SDOH Transport Med 2 [facility] Start: 03-25-2022 Alcohol Comment hardly any [facility] Start: 05-29-2022 End: 06-12-2024 History of Social function [facility] Start: 05-29-2022 End: 06-12-2024 Tobacco use panel [facility] How hard is it for y ou to pay for the very basics like food, housing, medical care, and heating Not hard at all [facility] (I/We) worried damián er (my/our) food would run out before (I/we) got money to buy more. Never true [facility] In the past 12 month s, was there a time when you were not able to pay the mortgage or rent on time? No [facility] Start: 09-28-2021 Gender identity Identifies as female gender (finding) [facility] Start: 09-28-2021 Sexual orientation Heterosexual (finding) [facility] Start: 04-12-2010 End: 04-12-2011 History of tobacco use Cigarette Smoker [facility] Start: 02-10-2023 Alcohol Comment socially [facility] Start: 06-03-2023 End: 09-28-2024 Alcohol intake Ex-drinker (finding) [facility] Start: 11-15-2014 End: 03-01-2024 Sex Female (finding) [facility] Start: 01-29-2022 Tobacco Comment 9 YEAR AGO [facility] Start: 05-28-2020 Alcohol Comment occasional [facility] Start: 10-06-2022 Alcohol Comment 1-2 drinks less than monthly in the past year [facility] Goals Date Patient Goal Desired Activity /State Personal health goal Functional Status Date Assessment Result Facility 01-24-2022 Are you deaf, or do you have serious difficulty hearing No 01/24/2022 2:12 PM Cora Conklin RN [facility] 01-24-2022 Are you blind, or do you have serious difficulty seeing, even when wearing glasses No 01/24/2022 2:12 PM Cora Conklin RN [facility] 01-24-2022 Do you have serious difficulty walking or climbing stairs No 01/24/2022 2:12 PM EDT Cora Ruiz RN No [facility] 01-24-2022 Do you have difficul ty dressing or bathing No 01/24/2022 2:12 PM EDT Cora Ruiz RN No [facility] 01-24-2022 Because of a physica l, mental, or emotional condition, do you have difficulty doing errands alone such as visiting a physician's office or shopping No 01/24/2022 2:12 PM EDT Cora Ruiz RN No [facility] 12-12-2021 Functional status Patient at Baseline [facility] Work Phone: Mental Status Date Assessment Result Facility 01-24-2022 Because of a physica l, mental, or emotional condition, do you have serious difficulty concentrating, remembering, or making decisions No 01/24/2022 2:12 PM EDT Cora Ruiz RN No [facility] 12-12-2021 Cognitive function Cognitive Sta tus Patient at Baseline [facility] Work Phone: Clinical Notes 09-03-2021 to 11-08-2024 Telephone Encounter - Shira Carrera [facility] - 11/08/2024 4:02 PM EDTTelephone Encounter - Shira Carrera [facility] - 11/08/2024 4:02 PM EDTBarti Mejia - 11/01/2024 11:10 AM EDTPatient Instructions Note Date & Type Note Facility 11-08-2024 Telephone encounter Note Last refilled given 09/28/2024; 11 refills remain. [facility] 11-08-2024 Miscellaneous Notes Last refilled given 09/28/2024; 11 refills remain. 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 female who presents for Pre-op Visit Patient presents today for Pre Op appointment. Patient is scheduled to undergo Diagnostic Laparoscopy, possible FAVIO, possible FOE, possible BSO on 12-01-[address] Perez at [facility]. MEDICATIONS Current Outpatient Medications Medication Instructions atomoxetine (Strattera) 40 MG capsule cephalexin (KEFLEX) 500 mg, Oral, 2 times daily coenzyme Q-10 100 MG capsule Cyanocobalamin (B-12) 5000 MCG sublingual tablet Oral, Daily RT estradiol (Climara) 0.075 MG/24HR 1 patch, Transdermal, Weekly estrogens (conjugated) (PREMARIN) 1.25 mg, Oral, Daily progesterone (PROMETRIUM) 100 mg, Oral, Daily propranolol LA (INDERAL LA) 60 mg, Oral, Daily RT ALLERGIES Allergies Allergen Reactions Sulfa Antibiotics Hives Sulfamethoxazole-Trimethoprim Unknown and Hives Morphine Unknown and Palpitations Wound Dressing Adhesive Rash PROBLEMS Active Ambulatory Problems Diagnosis Date Noted Calculus of kidney 10/05/2022 Carpal tunnel syndrome of right wrist 10/05/2022 Dyspareunia in female 10/05/2022 Other abnormal and inconclusive findings on diagnostic imaging of breast 10/05/2022 Resolved Ambulatory Problems Diagnosis Date Noted No Resolved Ambulatory Problems Past Medical History: Diagnosis Date Acne Bloating Breast lump on left side at 7 o'clock position Breast lump on right side at 6 o'clock position Depression History of hysterectomy History of miscarriage Kidney stones Migraines Nausea Night sweats Pelvic pain Vaginal discharge HISTORY PAST MEDICAL HISTORY SOCIAL HISTORY Past Medical History: Diagnosis Date Acne Bloating Breast lump on left side at 7 o'clock position Breast lump on right side at 6 o'clock position Depression History of hysterectomy History of miscarriage Kidney stones Migraines Nausea Night sweats Pelvic pain Vaginal discharge Social History Tobacco Use Smoking status: Former Types: Cigarettes Smokeless tobacco: Not on file Substance Use Topics Alcohol use: Yes Comment: 1-2 drinks less than monthly in the past year Drug use: Never FAMILY HISTORY Family History Problem Relation Name Age of Onset Mental illness Mother Hypertension Father Cancer Paternal Grandmother SURGICAL HISTORY Past Surgical History: Procedure Laterality Date CARPAL TUNNEL RELEASE Right 08/29/[address] GUIDED TRANSVAGINAL TRANSRECTAL FLUID DRAIN 11/13/2021 CT GUIDED TRANSVAGINAL TRANSRECTAL FLUID DRAIN 11/13/2021 CYST REMOVAL 2020 right ovary cyst removal HYSTERECTOMY 11/2019 LITHOTRIPSY 2017 MR ANGIOGRAM HEAD WO IV CONTRAST 09/12/2024 MR ANGIOGRAM HEAD WO IV CONTRAST 09/12/2024 REVIEW OF SYSTEMS Review of Systems: Review of Systems Constitutional: Negative. HENT: Negative. Eyes: Negative. Respiratory: Negative. Cardiovascular: Negative. Gastrointestinal: Negative. Genitourinary: Positive for dyspareunia and pelvic pain. Musculoskeletal: Negative. Skin: Negative. Neurological: Negative. All other systems reviewed and are negative. Hematological: Negative. Endocrine: Negative. Allergic/Immunologic: Negative. OBJECTIVE Objective: Physical Exam Constitutional: Appearance: Normal appearance. She is well-developed. Cardiovascular: Rate and Rhythm: Normal rate and regular rhythm. Pulmonary: Effort: Pulmonary effort is normal. Breath sounds: Normal breath sounds. Abdominal: General: Bowel sounds are normal. There is no distension. Palpations: Abdomen is soft. Tenderness: There is no abdominal tenderness. There is no guarding or rebound. Musculoskeletal: General: No swelling. Normal range of motion. Right lower leg: No edema. Left lower leg: No edema. Neurological: Mental Status: She is alert and oriented to person, place, and time. Skin: General: Skin is warm and dry. Psychiatric: Mood and Affect: Mood normal. Behavior: Behavior normal. Vitals and nursing note reviewed. Exam conducted with a environmental professional present. Vitals: Estimated body mass index is 22.54 kg/m as calculated from the following: Height as of 10/07/22: 5'. Weight as of 10/03/24: 115 lb 6.4 oz. BP: No LMP recorded. Patient has had a hysterectomy. ASSESSMENT & PLAN ICD-10-CM 1. Pre-op examination Z01.818 2. Pelvic pain R10.2 3. Dyspareunia in female N94.10 4. Recurrent UTI N39.0 Pre Op: Patient is doing well but has complaints of pelvic pain, dyspareunia. I have discussed conservative management vs. surgical management with the patient in detail and patient desires surgical management at this time. Patient will undergo Diagnostic Laparoscopy, possible FAVIO, possible FOE, possible BSO on 12/01/24. Surgical consents were signed, mmc was reviewed, and patient is to proceed to [facility] OR. Follow Up: Patient is to follow up between 1-2 weeks post operative to assess proper healing and recovery from procedure. Documented by Jazmin Lofton LPN on behalf of: Hari Perez DO documented in this encounter [facility] 10-03-2024 Telephone encounter Note Summary: Ajovy Images from the original note were not included. [facility] 10-03-2024 Miscellaneous Notes Summary: Ajovy Images from the original note were not included. 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 female who presents for No chief complaint on file. Patient presents today for Consult appointment. Patient would like to discuss pelvic prolapse, and discuss getting on hormonal medication that may help more than current regimen. Patient does not desire to have vaginal creams. Patient voiced that she has pressure (like feeling to have bowel movement) sometimes during intercourse. Patient feels as though she has a congested feeling pelvic/lower abdomen all the time. Patient stated that after intercourse she either has UTI or BV. MEDICATIONS Current Outpatient Medications Medication Instructions atomoxetine (Strattera) 40 MG capsule coenzyme Q-10 100 MG capsule Cyanocobalamin (B-12) 5000 MCG sublingual tablet Oral, Daily RT estrogens (conjugated) (PREMARIN) 1.25 mg, Oral, Daily propranolol LA (INDERAL LA) 60 mg, Oral, Daily RT ALLERGIES Allergies Allergen Reactions Sulfa Antibiotics Hives Sulfamethoxazole-Trimethoprim Unknown and Hives Morphine Unknown and Palpitations Wound Dressing Adhesive Rash PROBLEMS Active Ambulatory Problems Diagnosis Date Noted Calculus of kidney 10/05/2022 Carpal tunnel syndrome of right wrist 10/05/2022 Dyspareunia in female 10/05/2022 Other abnormal and inconclusive findings on diagnostic imaging of breast 10/05/2022 Resolved Ambulatory Problems Diagnosis Date Noted No Resolved Ambulatory Problems Past Medical History: Diagnosis Date Acne Bloating Breast lump on left side at 7 o'clock position Breast lump on right side at 6 o'clock position Depression History of hysterectomy History of miscarriage Kidney stones Migraines Nausea Night sweats Pelvic pain Vaginal discharge HISTORY PAST MEDICAL HISTORY SOCIAL HISTORY Past Medical History: Diagnosis Date Acne Bloating Breast lump on left side at 7 o'clock position Breast lump on right side at 6 o'clock position Depression History of hysterectomy History of miscarriage Kidney stones Migraines Nausea Night sweats Pelvic pain Vaginal discharge Social History Tobacco Use Smoking status: Former Types: Cigarettes Smokeless tobacco: Not on file Substance Use Topics Alcohol use: Yes Comment: 1-2 drinks less than monthly in the past year Drug use: Never FAMILY HISTORY Family History Problem Relation Name Age of Onset Mental illness Mother Hypertension Father Cancer Paternal Grandmother SURGICAL HISTORY Past Surgical History: Procedure Laterality Date CARPAL TUNNEL RELEASE Right 08/29/[address] GUIDED TRANSVAGINAL TRANSRECTAL FLUID DRAIN 11/13/2021 CT GUIDED TRANSVAGINAL TRANSRECTAL FLUID DRAIN 11/13/2021 CYST REMOVAL 2020 right ovary cyst removal HYSTERECTOMY 11/2019 LITHOTRIPSY 2017 MR ANGIOGRAM HEAD WO IV CONTRAST 09/12/2024 MR ANGIOGRAM HEAD WO IV CONTRAST 09/12/2024 REVIEW OF SYSTEMS Review of Systems: Review of Systems Constitutional: Negative. HENT: Negative. Eyes: Negative. Respiratory: Negative. Cardiovascular: Negative. Gastrointestinal: Negative. Genitourinary: Negative. Musculoskeletal: Negative. Skin: Negative. Neurological: Negative. All other systems reviewed and are negative. Hematological: Negative. Endocrine: Negative. Allergic/Immunologic: Negative. OBJECTIVE Objective: Physical Exam Constitutional: Appearance: Normal appearance. She is well-developed. Genitourinary: Vulva normal. Vaginal cuff intact. Cervix is absent. Uterus is absent. Cardiovascular: Rate and Rhythm: Normal rate and regular rhythm. Abdominal: General: Bowel sounds are normal. There is no distension. Palpations: Abdomen is soft. Tenderness: There is no abdominal tenderness. There is no guarding or rebound. Musculoskeletal: General: No swelling. Normal range of motion. Right lower leg: No edema. Left lower leg: No edema. Neurological: Mental Status: She is alert and oriented to person, place, and time. Skin: General: Skin is warm and dry. Psychiatric: Mood and Affect: Mood normal. Behavior: Behavior normal. Vitals and nursing note reviewed. Exam conducted with a environmental professional present. Vitals: Estimated body mass index is 22.54 kg/m as calculated from the following: Height as of 10/07/22: 5'. Weight as of this encounter: 115 lb 6.4 oz. BP: 126/82 No LMP recorded. Patient has had a hysterectomy. ASSESSMENT & PLAN ICD-10-CM 1. Dyspareunia in female N94.10 POCT urinalysis dipstick manually resulted Pt has complaints of dyspareunia, and feeling of fullness. Pt has seen urology in the past. Pt to be started on climara and prometrium. Pt to be scheduled for dx lap poss favio, poss foe, poss bso. Pt has pain during ovulation. Pt getting Uti or BV with intercourse. Pt has small bladder prolapse. Rx for keflex faxed to pharmacy, pt advised to take 30 min prior to intercourse or after. Pt voiced understanding. Pt to return for preop, discussed removing ovaries if necessary. Documented by Jazmin Lofton LPN-scribe on behalf of: Hari Perez DO documented in this encounter [facility] 09-28-2024 Instructions Chris Fam APRN.[facility] 09/28/2024 2:05 PM EDT Images from the original note were not included. [id number]-af-[id number] autoinjector instructions To prepare for your injection, take your autoinjector out of the refrigerator. Make sure to wait 30 minutes until it reaches room temperature. Now you're ready to follow the steps below. Step 1: Uncap the autoinjector With one hand, firmly pull the cap straight off the autoinjector (don't twist) and throw the cap away immediately. Step 2: Place at a 90o angle Place the autoinjector at a 90 angleagainst your skin at your choseninjection site. Step 3: Press down and hold autoinjector until 10 seconds after second click Press down on the autoinjector. You will hear a click. This means the injection has started and you should see the blue plunger move down. You will hear a second click. Remove autoinjector 10 seconds after. For more detailed steps on using the AJOVY Autoinjector, read the full Instructions for Use. READ FULL INSTRUCTIONS FOR USE Important things to know before injecting: Before injecting, let AJOVY sit at room temperature for 30 minutes. Do not warm up using a heat source such as hot water or a microwave. Keep AJOVY Autoinjector out of the reach of small children. After you remove the needle cap, to prevent infection, do not touch the needle. DO NOT inject AJOVY in your veins (intravenously). DO NOT reuse your AJOVY Autoinjector as this could cause infection or injury. DO NOT share your AJOVY Autoinjector with another person. You may give another person an infection or get an infection from them. You may give AJOVY yourself. If you feel uncomfortable, you should not get your first dose of AJOVY until you or your caregiver receive training from a healthcare provider on the right way to use AJOVY. How to Dispose Used Sharps: DO's and DON'Ts The AJOVY Autoinjector is for single-time (one-time) use only. After use, be sure to follow these rules: DO put the autoinjector into an FDA-approved sharps disposal container right away. DON'T ever throw away the sharps disposal container, or any loose needles and syringes, in your household trash. For a more complete list of DO's and DON'Ts and to learn more, download our Sharps Disposal Brochure below. Chris Fam APRN.HUE documented in this encounter [facility] 09-28-2024 History of Present illness Narrative Images from the original note were not included. Headache Center - Follow up Virtual Visit This visit was conducted as a virtual visit, with patient's permission, via Zoom. Patient location - Bret Heller was identified by name and and consented to the video evaluation and its limitations. Based on this evaluation it may be necessary for them to schedule a follow up evaluation with me or other neurologists for formal physical examination and if necessary,other studies. I have communicated my name and active licensure. The patient's identity and physical location were verified at the time of this visit. Either the patient or their legal sales representative womens health has been informed of the risks and benefits of -- and alternatives to -- treatment through a remote evaluation and consents to proceed with the evaluation remotely. Recording using ambient [employer] software for draft documentation of the visit was discussed with the patient/authorized sales representative womens health; all questions welcomed and answered. Patient/authorized sales representative womens health agreed to proceed Accompanied by: Self Primary Problem List: ACTIVE PROBLEM LIST Paralysis (Hcc) Pots (Postural Orthostatic Tachycardia Syndrome) Syncope Hyperlipidemia Ldl Goal <70 Migraine Arnold-Chiari Malformation (Hcc) Post Covid-19 Condition, Unspecified Sinus Tachycardia Palpitations Hx of Syncope Finding of Above Normal Blood Pressure Depression With Anxiety Chest Pain Central Cord Syndrome (Hcc) Calculus of Kidney Chief Complaint: headaches Impression and Plan from last visit 06/28/2024, Oh: IMPRESSION: Chiari i malformation (hcc) Intractable migraine without aura and without status migrainosus (primary encounter diagnosis) Bilateral occipital neuralgia Pastor Heller is a 33 year old year old female, with a history of POTS (on Ivabridine), Chiari malformation, depression, ovarian cyst, nephrolithiasis . Her neurological examination is essentially normal at this visit although this is limited due to nature of telehealth. Although migraine features are overall typical, she had been ordered MRI and MRA previously by neurology for Chiari monitoring, which she had never completed. She is requesting new orders be faxed over to [facility] for completion, which I am happy to help facilitate. She has seen improvement on propranolol and is tolerating the medication well, so recommend continuing. Given bilateral occipital pain with allodynia, she may have element of bilateral occipital neuralgia contributing to overall headache pattern. She was previously on nortriptyline and thinks she found it helpful - is unsure why she stopped. Would recommend restarting at this time. She is no longer taking rizatriptan - does not believe it was helpful. Will trial naratriptan in its place. Nurtec has worked best for her in the past, but was very expensive (likely due to lack of previous triptan trials). Will aim to get her restarted on nurtec after naratriptan trial. Reviewed dosing, administration, and side effects of all medications prescribed. She should follow up in 3 months, or sooner if needed. Patient agreeable to plan of care, and all questions answered. PLAN: Prevention: Restart nortriptyline 10mg QHS - can increase to 20mg after 2 weeks if tolerating -Continue propranolol 60mg daily, CoQ10 Abortive: Trial naratriptan 2.5mg PRN MRI/MRA brain for Chiari monitoring Follow up in 3 months, PRN Interval Headache History: Chronic Migraines: - Experiencing excessive headaches. - Recent trial of nortriptyline was effective for headache reduction but caused severe night sweats, leading to discontinuation. - Headaches returned to baseline severity after stopping nortriptyline. - Current medications: propranolol 60 mg daily, CoQ10, B12, fish oil, Zofran PRN, Premarin. - Naratriptan did not help. - Reports severe tenderness in the posterior neck. - Headaches triggered by minimal jarring or bumps, such as riding a lawnmower. - Denies current use of duloxetine; uncertain if it was tried previously. - Constipation is well-controlled. Headache 1 Onset: - Childhood/teenage years Location: holcephalic, occipital, bilateral and temporal (pentecostal pain will switch sides based on migraine) Quality/Description: throbbing and sharp Associated Symptoms: Photophobia: yes Phonophobia: yes Nausea: yes Vomiting: no Other symptoms: neck pain Worse with activity: yes Number of migraine headache days/month: 8 Migraine Severity: 5-7/10. Number of NON-migraine headache days/month: 8 Total Number of headache days/month: 16 Number of headache free days/month: 15 Duration of headaches with treatment: 2 days (48 hours) Current preventive treatment: Propranolol Current abortive treatment: Excedrin, ibuprofen Triggers: none Onset of headache to peak: abrupt Positional changes: yes - sometimes worse when lying down, but generally more comfortable to lie down on ho with neck support pillow Aura: fortification spectra, scotoma and sunspots (not every migraine) Allodynia: yes Days missed from work or school in the last month: 0 days Lifestyle: Sleep: Awful; 5-6 hours per night, wakes up frequently; has tried melatonin, magnesium, benadryl Diet: decreased caffeine intake; 1 cup of coffee per day Preventative: Propranolol Abortive: Excedrin, ibuprofen Analgesic Butalbital/acetaminophen/caffein e (Fioricet) Anti-Convulsant Gabapentin (Neurontin) 300 mg TID Aggressive side-effects Oxcarbazepine (Trileptal) Topiramate (Topamax, Trokendi XL, Qudexy) Contraindicated due to kidney stones Anti-Depressant and Antipsychotic Nortriptyline (Pamelor, Aventyl) Antiemetics Ondansetron Anti-Migraine Naratriptan (Amerge) Rizatriptan (Maxalt) Blood Pressure Metoprolol (Lopressor,Toprol XL) MABs Fremanezumab (Ajovy) GEPANTS Rimegepant (Nurtec) Muscle Relaxer Methocarbamol (Robaxin) low BP Tizanidine (Zanaflex) Sleep Aids Melatonin Supplements CoQ10 Magnesium Over the Counter Medications Acetaminophen/Aspirin/Caffeine (Excedrin, Goody s) Ibuprofen (Advil, Motrin) PAST MEDICAL HISTORY Diagnosis Date Arnold-Chiari malformation (HCC) Central cord syndrome (HCC) COVID Depression Family history of seizure disorder Migraines Nephrolithiasis Ovarian cyst Post-COVID syndrome POTS (postural orthostatic tachycardia syndrome) Preeclampsia (HCC) Sinus tachycardia Syncope PAST SURGICAL HISTORY Procedure Laterality Date ORAL SURGERY PROCEDURE REVISE MEDIAN N/CARPAL TUNNEL SURG VAGINAL HYSTERECTOMY for uncontrolled vaginal bleeding ALLERGIES Allergen Reactions Adhesive Tape-Silic* Rash Bactrim [Sulfametho* Hives Sulfa (Sulfonamide * Hives Morphine Other: See Comments Tachycardia Current Medications: fremanezumab-vfrm subcutaneus auto-injector 225 mg/1.5 mL (AJOVY) Inject 1.5 mL subcutaneously once every month. Do not shake. ondansetron orally disintegrating (ZOFRAN ODT) 4 mg disintegrating tablet Take 4 mg by mouth every 8 hours as needed for nausea/vomiting. propranolol ER (INDERAL LA) 60 mg 24 hr capsule TAKE 1 CAPSULE BY MOUTH EVERY DAY PREMARIN 0.9 mg tablet Take 0.9 mg by mouth once daily. atomoxetine (STRATTERA) 40 mg capsule Take 40 mg by mouth once daily. cyanocobalamin/cobamamide (B12 SUBLINGUAL) Dissolve under the tongue. COQ10, UBIQUINOL, ORAL Take by mouth. Etldd-1-HJT-EPA-Fish Oil (FISH OIL) 1,000 mg (120 mg-180 mg) cap I have reviewed the Health Status Assessment responses and discussed these with the patient: yes Chris Fam APRN.BAKERY TEAM LEADER HEADACHE SCORES: 05/03/2023 06/28/2024 09/25/2024 Headache Questions ID Migraine Screener: 3 (Positive) ER visits since last office visit: 0 Hospital stays since last office visit 0 Limited ADLs in the last month: 10 Days missed from work or school in the last month: 10 0 Days headache pain free in the last month: 15 20 Days per month with ALL of the following symptoms - decreased productivity, light sensitivity and nausea: 15 8 Initial improvement of headache after botox injection at last visit: Not applicable, I did not have a botox injection at my last visit Not applicable, I did not have a botox injection at my last visit PRN medication usage in the last month: 15 Patient impression of improvement since last visit: No change Much worse 05/03/2023 06/28/2024 09/25/2024 HIT-6 HIT-6 68 (Severe impact) 66 (Severe impact) 70 (Severe impact) 02/07/2024 06/28/2024 09/25/2024 ESTHELA - 2/7 SCORES ESTHELA-2 Score 0 0 0 ESTHELA-7 Score 9 05/03/2023 06/28/2024 09/25/2024 Migraine Specific QOL - Higher scores indicate better HRQL Role Function-Restrictive Transformed Score (range: 0-100) 37.14 40 34.29 Role Function-Preventive Transformed Score (range: 0-100) 40 40 50 Emotional Function Transformed Score (range: 0-100) 40 26.67 26.67 06/07/2023 06/28/2024 09/25/2024 PHQ-9 Score 10 12 12 Studies to Review: No MRI Head/Brain - Last 2 Impressions MRI BRAIN WO/W IVCON Exam End: 06/22/2022 2:17 PM (Final result) MRI BRAIN WO/W IVCON Exam End: 12/22/2021 9:15 AM (Final result) MRA Head and/or Neck - Last 2 Impressions No resulted procedures found. MRI Cervical Spine - Last 2 Impressions No resulted procedures found. CT Head/Brain - Last [address] BRAIN WO IVCON Exam End: 12/01/2021 9:59 AM (Final result) CT BRAIN WO IVCON Exam End: 11/09/2021 12:19 PM (Final result) CTA Head and/or Neck - Last 2 CTA NECK W IVCON Exam End: 11/13/2021 10:06 AM (Final result) CTA HEAD W IVCON Exam End: 11/13/2021 10:06 AM (Final result) Labs to Review: No - Most recent CMP and CBC below Latest Ref Rng & Units 04/20/2023 CMP Sodium 136 - 144 mmol/L 142 Potassium 3.7 - 5.1 mmol/L 3.5 Chloride 97 - 105 mmol/L 103 CO2 22 - 30 mmol/L 24 Glucose 74 - 99 mg/dL 124 BUN 7 - 21 mg/dL 10 Creatinine 0.58 - 0.96 mg/dL 0.67 EGFR >=60 mL/min/1.73m 119 Protein, Total 6.3 - 8.0 g/dL 7.3 Albumin 3.9 - 4.9 g/dL 4.8 Calcium 8.5 - 10.2 mg/dL 9.7 Bilirubin, Total 0.2 - 1.3 mg/dL 0.3 AST 13 - 35 U/L 21 ALT 7 - 38 U/L 15 Alkaline Phosphatase 34 - 123 U/L 64 Latest Ref Rng & Units 08/27/2023 CBC Hemoglobin Total, Whole Blood 11.5 - 15.5 g/dL 13.1 Review of Systems: Review of system: unchanged from the previous visit (sleep patterns, mood, energy, appetite, stress, exercising). Physical Examination: Vital Signs: No vital signs taken for this visit due to nature of virtual visit. General: well appearing, in no acute distress, alert Pain Behaviors: no pain behaviors observed Neurological: Mental Status: Alert and oriented to person, place and time. Affect is normal. Speech is spontaneous and fluent without dysarthria. 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 Attention span and concentration are excellent. HEENT: Head is normocephalic and features were symmetric. Musculoskeletal: Patient able to sit up right in chair for entirety of visit. Cranial Nerves: III, IV, -EOMI: full. VII-face is symmetric without evidence of weakness. VIII-hearing intact. IMPRESSION/PLAN: 1. Chiari I malformation (HCC) (G93.5) 2. Intractable migraine without aura and without status migrainosus (G43.019) - Migraines remain intractable despite trials of multiple oral medications including nortriptyline, Topamax, gabapentin, and oxcarbazepine. Propranolol 60 mg daily is currently being taken. 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 - Discussed advanced treatment options including Botox injections every three months and monthly self-injections. - Educated patient on the administration and potential side effects of Ajovy, including mild constipation and injection site irritation. - Initiated prior authorization for Ajovy; prescription sent to [facility] in [facility]. - Follow-up scheduled after three to four injections to assess efficacy. Prior Authorization: We will request precertification for Calcitonin Gene Related Peptide Monoclonal Antibody, Fremanezumab. This patient meets ICHD-3 criteria for treatment with CGRP MAB, She has Chronic Migraine Headache (CM), Chronic Migraine without aura, without mention of intractable migraine without mention of status migrainosus which occurs at least 15 days per month for at least 4 hours per day. The FDA has approved CGRP MAB for prevention of migraine. Specifically, the patient has 15 migraines per month, lasting 4 or more hours/d associated with photophobia, phonophobia, nausea for three or more months. Medication overuse headache has been ruled out. Patient is not currently taking a Gepant for acute treatment of her migraine. The following preventative medications have been tried for 3 or more months without benefit or discontinued due and/or side effects. Anti-Convulsant Gabapentin (Neurontin) 300 mg TID Aggressive side-effects Oxcarbazepine (Trileptal) Topiramate (Topamax, Trokendi XL, Qudexy) Contraindicated due to kidney stones Anti-Depressant and Antipsychotic Nortriptyline (Pamelor, Aventyl) Blood Pressure Metoprolol (Lopressor,Toprol XL) MABs Fremanezumab (Ajovy) Supplements CoQ10 Magnesium The following abortive medications have been tried but require high frequency use which can lead to Medication Overuse Headache: Analgesic Butalbital/acetaminophen/caffein e (Fioricet) Anti-Migraine Naratriptan (Amerge) Rizatriptan (Maxalt) GEPANTS Rimegepant (Nurtec) Over the Counter Medications Acetaminophen/Aspirin/Caffeine (Excedrin, Goody s) Ibuprofen (Advil, Motrin) HEADACHE MANAGEMENT: MEDICATION TREATMENT: Medications to Start Taking fremanezumab-vfrm subcutaneus auto-injector 225 mg/1.5 mL (AJOVY) Inject 1.5 mL subcutaneously once every month. Do not shake. Follow-up: 3-4 months, sooner PRN Level of Service: Virtual Visit 30 minutes Chris Fam APRN.CNP Headache Section [facility] September 28, 2024 documented in this encounter [facility] 09-28-2024 Note HNO ID: [id number] Author: CHRIS FAM APRN.CNP Service: ? Author Type: Nurse Practitioner Type: Progress Notes Filed: 09/28/2024 14:06 Note Text: Headache Center - Follow up Virtual Visit This visit was conducted as a virtual visit, with patient's permission, via Zoom. Patient location - Bret Heller was identified by name and and consented to the video evaluation and its limitations. Based on this evaluation it may be necessary for them to schedule a follow up evaluation with me or other neurologists for formal physical examination and if necessary,other studies. I have communicated my name and active licensure. The patient's identity and physical location were verified at the time of this visit. Either the patient or their legal sales representative womens health has been informed of the risks and benefits of -- and alternatives to -- treatment through a remote evaluation and consents to proceed with the evaluation remotely. Recording using [employer] software for draft documentation of the visit was discussed with the patient/authorized sales representative womens health; all questions welcomed and answered. Patient/authorized sales representative womens health agreed to proceed Accompanied by: Self Primary Problem List: ACTIVE PROBLEM LIST Paralysis (Hcc) Pots (Postural Orthostatic Tachycardia Syndrome) Syncope Hyperlipidemia Ldl Goal <70 Migraine Arnold-Chiari Malformation (Hcc) Post Covid-19 Condition, Unspecified Sinus Tachycardia Palpitations Hx of Syncope Finding of Above Normal Blood Pressure Depression With Anxiety Chest Pain Central Cord Syndrome (Hcc) Calculus of Kidney Chief Complaint: headaches Impression and Plan from last visit 06/28/2024, Oh: IMPRESSION: Chiari i malformation (hcc) Intractable migraine without aura and without status migrainosus (primary encounter diagnosis) Bilateral occipital neuralgia Pastor Heller is a 33 year old year old female, with a history of POTS (on Ivabridine), Chiari malformation, depression, ovarian cyst, nephrolithiasis . Her neurological examination is essentially normal at this visit although this is limited due to nature of telehealth. Although migraine features are overall typical, she had been ordered MRI and MRA previously by neurology for Chiari monitoring, which she had never completed. She is requesting new orders be faxed over to [facility] for completion, which I am happy to help facilitate. She has seen improvement on propranolol and is tolerating the medication well, so recommend continuing. Given bilateral occipital pain with allodynia, she may have element of bilateral occipital neuralgia contributing to overall headache pattern. She was previously on nortriptyline and thinks she found it helpful - is unsure why she stopped. Would recommend restarting at this time. She is no longer taking rizatriptan - does not believe it was helpful. Will trial naratriptan in its place. Nurtec has worked best for her in the past, but was very expensive (likely due to lack of previous triptan trials). Will aim to get her restarted on nurtec after naratriptan trial. Reviewed dosing, administration, and side effects of all medications prescribed. She should follow up in 3 months, or sooner if needed. Patient agreeable to plan of care, and all questions answered. PLAN: Prevention: Restart nortriptyline 10mg QHS - can increase to 20mg after 2 weeks if tolerating -Continue propranolol 60mg daily, CoQ10 Abortive: Trial naratriptan 2.5mg PRN MRI/MRA brain for Chiari monitoring Follow up in 3 months, PRN Interval Headache History: Chronic Migraines: - Experiencing excessive headaches. - Recent trial of nortriptyline was effective for headache reduction but caused severe night sweats, leading to discontinuation. - Headaches returned to baseline severity after stopping nortriptyline. - Current medications: propranolol 60 mg daily, CoQ10, B12, fish oil, Zofran PRN, Premarin. - Naratriptan did not help. - Reports severe tenderness in the posterior neck. - Headaches triggered by minimal jarring or bumps, such as riding a lawnmower. - Denies current use of duloxetine; uncertain if it was tried previously. - Constipation is well-controlled. Headache 1 Onset: - Childhood/teenage years Location: holcephalic, occipital, bilateral and temporal (pentecostal pain will switch sides based on migraine) Quality/Description: throbbing and sharp Associated Symptoms: Photophobia: yes Phonophobia: yes Nausea: yes Vomiting: no Other symptoms: neck pain Worse with activity: yes Number of migraine headache days/month: 8 Migraine Severity: 5-7/10. Number of NON-migraine headache days/month: 8 Total Number of headache days/month: 16 Number of headache free days/month: 15 Duration of headaches with treatment: 2 days (48 hours) Current preventive treatment: Propranolol Current abortive treatment: Excedrin, ibuprofen Triggers: none Ons (more content not included)... [facility] 07-20-2024 History of Present illness Narrative [facility] Follow Up Visit CHIEF COMPLAINT: Chief Complaint Patient presents with Medication Reaction Patient is here today to discuss medication side effects. Patient denies other GI symptoms. HISTORY OF PRESENT ILLNESS: Pastor Heller is a 33 y.o. female who has a PMH of POTS, HLD, long-COVID who presents to our office today for follow-up. She is an established patient of myself and Dr. Richmond, last seen in the office in June 2024. Patient presented to the ED on 05/17/2024 with liquid stools for 10 days, RUQ pain, nausea, vomiting. She was sent to the ER by General surgery nurse practitioner to be evaluated for possible cholecystitis or bowel obstruction as she had not been passing gas. She had also presented to the ER around 6 days prior to this visit, diagnosed with colitis and started on Cipro and Flagyl. She followed up with her PCP in the next day and was given a steroid shot as well as IM Rocephin. She was given Keflex as well but had an allergic reaction. CTAP on 05/17/2024 showed terminal ileitis. Patient informs me she was never having any liquid stools, she remains chronically constipated. Today, she states that overall her constipation has improved. We did start her on Linzess 72 mcg daily at first without any change in her bowel pattern, continued to have Wluz-Xvb-rolt skinny bowel movements every 5-10 days. She was then increase to Linzess 145 mcg daily which is allowing her to have 1 BSS type 4 bowel movement followed by around 3 BSS type 7 bowel movements every 3 days. She continues to have feelings of incomplete stooling. She also endorses continued rectal pain, feeling more internal, especially during vaginal intercourse. She has not yet seen her OBGYN discuss these symptoms. She also experiences a small amount of painless bright red blood per rectum on the toilet paper with each bowel movement. She also endorses continued chronic and generalized abdominal pain that did not resolve after bowel purge. Denies any specific triggers or alleviating factors. She has not yet completed her fecal calprotectin, ESR and CRP. She did have a colonoscopy on 06/26/2024 that showed a tortuous colon but was otherwise unremarkable. CTAP from 05/17/2024 also showed focal fatty infiltration involving the fissure for ligamentum teres. ALT was elevated at 32 in 05/2024, other LFTs normal. We will discuss this at her follow-up visit as today's visit was focused on her other symptoms. Denies other GI symptoms, associated symptoms or alarm symptoms. Denies tobacco use, marijuana use, illicit drug use, persistent NSAID use, persistent alcohol use. Multiple maternal aunts have IBD. Weight 07/20/24 0702 53.8 kg (118 lb 9.6 oz) 06/26/24 0647 49.9 kg (110 lb) 06/20/24 0706 52.8 kg (116 lb 6.4 oz) 05/17/24 1512 53.1 kg (117 lb) 05/17/24 1407 53.2 kg (117 lb 3.2 oz) 02/11/24 0955 54.4 kg (120 lb) PAST MEDICAL HISTORY Past Medical History: Diagnosis Date Chronic kidney disease COVID Hypertension PONV (postoperative nausea and vomiting) Syncopal episodes PREVIOUS ENDOSCOPIC PROCEDURES: 06/26/[address] Richmond -- MAC sedation. Good prep. Performed due to abnormal CT of the GI tract, change in bowel habits. Tortuous colon. The examination was otherwise normal. The examined portion of the ileum was normal. Biopsies were taken with a cold forceps for histology in the entire colon. Random colon biopsy showed colonic mucosa with no significant histopathologic changes. No colitis including microscopic colitis, inflammatory bowel disease, granuloma or dysplasia. 06/26/[address] Richmond -- MAC sedation. Performed due to early satiety, nausea. Z-line regular, 35 cm from the incisors. Normal esophagus. Normal stomach. Biopsied. Normal duodenal bulb and second portion of the duodenum. Biopsied. Duodenum biopsy showed duodenal mucosa with no significant histopathologic changes. No active inflammation, celiac disease, parasites, granuloma or atypia. Gastric biopsy showed gastric mucosa with focal erosion and reactive changes. No active inflammation, intestinal metaplasia or dysplasia. No Helicobacter pylori organisms are seen on routine sections. PREVIOUS IMAGIN05/17/2024 CT AP with contrast Constellation of findings suggestive of terminal ileitis (infectious/inflammatory, amongst other etiologies). Correlation with patient history and serology, particularly regarding inflammatory bowel disease, may be of diagnostic value. Nondilated gallbladder without evidence of radiopaque gallstones. Appendix is within normal limits. Focal fatty infiltration involving the fissure for ligamentum teres. Otherwise unremarkable for technique. 02/15/2024 KUB Unremarkable exam. 05/03/2020 CT AP with contrast Unremarkable GI exam. Past Surgical History: Past Surgical History: Procedure Laterality Date BREAST BIOPSY Right 07/22/2018 needle bx. rt breast fibroadenoma BREAST EXCISIONAL BIOPSY Right 2019, fibroadenoma COLONOSCOPY BIOPSY N/A 06/26/2024 Performed by Pepe Richmond MD at [facility] ESOPHAGOGASTRODUODENOSCOPY BIOPSY N/A 06/26/2024 Performed by Pepe Richmond MD at [facility] GANGLION CYST EXCISION Right HYSTERECTOMY KIDNEY SURGERY Right LITHOTRIPSY Current Medications: Current Outpatient Medications: atomoxetine (STRATTERA) 25 mg capsule, Take 1 capsule (25 mg total) by mouth in the morning. Take in the morning., Disp: , Rfl: COQ10, UBIQUINOL, ORAL, Take by mouth., Disp: , Rfl: cyanocobalamin-cobamamide 5,000-100 mcg lozenge, Dissolve in the mouth daily. (Patient taking differently: Dissolve in the mouth daily. Not taking), Disp: , Rfl: estrogens, conjugated, (PREMARIN) 0.625 mg tablet, Take 0.9 mg by mouth in the morning., Disp: , Rfl: hyoscyamine (ANASPAZ,LEVSIN) 0.125 mg tablet, every 4 (four) hours as needed., Disp: , Rfl: linaCLOtide (LINZESS) 145 mcg capsule, Take 1 capsule (145 mcg total) by mouth in the morning., Disp: 16 capsule, Rfl: 0 ondansetron ODT (ZOFRAN ODT) 4 mg disintegrating tablet, Dissolve 1 tablet (4 mg total) on tongue every 8 (eight) hours as needed for nausea or vomiting., Disp: 60 tablet, Rfl: 2 oxyCODONE-acetaminophen (PERCOCET) 5-325 mg per tablet, Take 1 tablet by mouth every 6 (six) hours as needed., Disp: , Rfl: promethazine (PHENERGAN) 25 mg tablet, Take 1 tablet (25 mg total) by mouth every 6 (six) hours as needed for nausea or vomiting., Disp: 15 tablet, Rfl: 0 propranolol LA (INDERAL LA) 60 mg 24 hr capsule, Take 1 capsule (60 mg total) by mouth in the morning., Disp: , Rfl: hydrocortisone (ANUSOL-HC) 2.5 % rectal cream, Insert 1 Application into the rectum 4 (four) times a day as needed for hemorrhoids (rectal discomfort)., Disp: 30 g, Rfl: 5 linaCLOtide (LINZESS) 145 mcg capsule, Take 1 capsule (145 mcg total) by mouth in the morning., Disp: 16 capsule, Rfl: 0 naratriptan (AMERGE) 2.5 mg tablet, Take 1 tablet (2.5 mg total) by mouth. (Patient not taking: Reported on 07/20/2024), Disp: , Rfl: nortriptyline (PAMELOR) 10 mg capsule, Take 1 capsule (10 mg total) by mouth once daily at bedtime. (Patient not taking: Reported on 07/20/2024), Disp: , Rfl: phenazopyridine (PYRIDIUM) 200 mg tablet, 3 (three) times a day. (Patient taking differently: 3 (three) times a day. Not taking), Disp: , Rfl: I reviewed and reconciled this patient's medication list today. The list included in this note is the most up to date list that I can attest to at this time based on the information that the patient has provided me and the electronic medical record. ALLERGIES: Bactrim [sulfamethoxazole-trimethoprim], Keflex [cephalexin], Sulfa (sulfonamide antibiotics), Adhesive tape-silicones, and Morphine SOCIAL HISTORY: Social History Tobacco Use Smoking status: Former Smokeless tobacco: Never Tobacco comments: 9 YEAR AGO Vaping Use Vaping status: Never Used Substance Use Topics Alcohol use: Not Currently Drug use: No FAMILY HISTORY: Family History Problem Relation Age of Onset Breast cancer Paternal Grandmother 60 Colon cancer Neg Hx ASSESSMENTS: REVIEW OF SYSTEMS: Review of Systems Constitutional: Negative for appetite change and unexpected weight change. HENT: Negative for trouble swallowing. Gastrointestinal: Positive for abdominal pain, anal bleeding and constipation. Negative for abdominal distention, blood in stool, diarrhea, nausea, rectal pain and vomiting. Skin: Negative for color change. PHYSICAL EXAM: Vitals: 07/20/24 0702 BP: 114/87 Weight: 53.8 kg (118 lb 9.6 oz) Height: 152.4 cm (5') Body mass index is 23.16 kg/m . Physical Exam Constitutional: General: She is not in acute distress. Appearance: She is not toxic-appearing. Eyes: General: No scleral icterus. Cardiovascular: Rate and Rhythm: Normal rate and regular rhythm. Heart sounds: Normal heart sounds. No murmur heard. Pulmonary: Effort: Pulmonary effort is normal. Breath sounds: Normal breath sounds. Abdominal: General: Bowel sounds are normal. There is no distension. Palpations: Abdomen is soft. Tenderness: There is no abdominal tenderness. There is no guarding or rebound. Skin: Coloration: Skin is not jaundiced or pale. Neurological: Mental Status: She is alert. Psychiatric: Mood and Affect: Mood normal. Behavior: Behavior normal. PERTINENT DATA: CBC: Lab Results Component Value Date WBC 7.5 05/17/2024 HGB 13.6 05/17/2024 HCT 40.3 05/17/2024 MCV 90 05/17/2024 RDW 12.6 05/17/2024 PLT 247 05/17/2024 CMP: Lab Results Component Value Date K 3.9 05/17/2024 CL 100 05/17/2024 CO2 27 05/17/2024 BUN 8 05/17/2024 GLU 99 05/17/2024 No results found for: INR , PROTIME ASSESSMENT AND PLAN: Pastor Heller is a 33 y.o. female who has a PMH of POTS, HLD, long-COVID who presents to our office today for follow-up. Chronic Constipation / Abdominal Bloating / Abdominal Pain / Hematochezia / Multiple Maternal Aunts with IBD / Terminal Ileitis on Imaging: Complete previously ordered fecal calprotectin, ESR and CRP (replaced orders for blood work today as well). After long discussion today, she would like to continue Linzess 145 mcg daily with addition of MiraLax 17 g once to twice daily before jumping to Linzess 290 mcg daily. Provided Anusol rectal cream for suspicion of internal hemorrhoids. Consider TCA if chronic pain continues. I also did recommend she follow with her OBGYN as she does have pain with intercourse. Constipation likely exacerbated by tortuous colon. Chronic Nausea & RUQ Pain / Early Satiety: All resolved s/p bowel purge. Will discuss further workup if symptoms recur. Isolated Mild Elevation of ALT / Hepatic Steatosis: Ordered recheck of LFTs and acute hepatitis panel. We will discuss hepatic steatosis at her follow-up visit as today's visit focused on her other symptoms. Further recommendations pending workup/therapy as planned. Patient is aware and agreeable to this plan. Patient is to follow-up in 3 months or sooner as needed. Orders Placed This Encounter Procedures Erythrocyte Sedimentation Rate (ESR) C-reactive protein Liver panel Hepatitis panel, acute Total time spent was 30 minutes: Preparing to see the patient (e.g., review of tests) Obtaining and/or reviewing separately obtained history Performing a medically appropriate examination and/or evaluation Counseling and educating the patient/family/caregiver Ordering medications, tests, or procedures LORNEZA DUNCAN PA-C [address], [address] [place] [address] PH: [phone] Patient to follow with Lorenza Duncan PA-C and Dr. Richmond This note is dictated with the use of M*Modal.Please note that this dictation was completed with computer voice recognition software. Quite often unanticipated grammatical, syntax, homophones, and other interpretive errors are inadvertently transcribed by the computer software. Please disregard these errors. Please excuse any errors that have escaped final proofreading. Lorenza Duncan PA-C 07/20/24 0753 documented in this encounter [facility] 07-20-2024 Instructions Lorenza Duncan PA-C - 07/20/2024 7:15 AM EDT Continue Linzess 145mcg daily, 30 minutes prior to breakfast. Begin MiraLax 1-2 capfuls daily, titrate as needed until having 1 soft formed bowel movement daily. Anusol rectal cream Blood work documented in this encounter [facility] 07-14-2024 Telephone encounter Note Patient last seen on 06/28/24 [facility] 07-14-2024 Miscellaneous Notes Patient last seen on 06/28/24 documented in this encounter [facility] 07-10-2024 Miscellaneous Notes Sample Distribution Policy: Effective 06/19/2024 Per Yaima Cerda RN Manager, Attention Providers, You must be placing the orders in your office or Telephone Encounters and marking the Sample option on the script. The Staff cannot dispense a sample without the signed order in the chart. - Linzess 145 mcg - 4 boxes (16 cap) - Lot: [id number] - Exp: 09/2024 Thank You documented in this encounter [facility] 07-10-2024 Telephone encounter Note Sample Distribution Policy: Effective 06/19/2024 Per Yaima Cerda RN Manager, Attention Providers, You must be placing the orders in your office or Telephone Encounters and marking the Sample option on the script. The Staff cannot dispense a sample without the signed order in the chart. - Teresa 145 mcg - 4 boxes (16 cap) - Lot: [id number] - Exp: 09/2024 [facility] Miscellaneous Notes New Patient No Show 06/01/2024 See in office 07/20/24 [facility] encounter Note New Patient No Show 06/01/20[facility]2024 Telephone encounter Note See in office 07/20/24 [facility] 06-28-2024 Instructions Heidi Casiano, DISINTEGRATOR FEEDER.BAKERY TEAM LEADER - 06/28/2024 12:05 PM EDT PLAN: Prevention: Restart nortriptyline 10mg at bedtime - can increase to 20mg after 2 weeks if tolerating -Let me know if you increase, so I can adjust medication prescription. Also please let me know if you do not tolerate this medication for any reason -Continue propranolol 60mg daily, CoQ10 Abortive: Trial naratriptan 2.5mg as needed for migraine -Please take at onset of migraine. A second dose can be repeated in 4 hours if needed -Limit use of triptans and OTCs to no more than 2 days per week, or <10 days per month to reduce risk of medication overuse/rebound headace MRI/MRA brain for Chiari monitoring - [facility] Follow up in 2-3 months, or sooner if needed documented in this encounter [facility] 06-28-2024 History of Present illness Narrative Images from the original note were not included. [facility] - Follow up Virtual Visit This visit was conducted as a virtual visit, with patient's permission, via Zoom. Patient location - [place], [place] Pastor Heller was identified by name and and consented to the video evaluation and its limitations. Based on this evaluation it may be necessary for them to schedule a follow up evaluation with me or other neurologists for formal physical examination and if necessary,other studies. I have communicated my name and active licensure. The patient's identity and physical location were verified at the time of this visit. Either the patient or their legal sales representative womens health has been informed of the risks and benefits of -- and alternatives to -- treatment through a remote evaluation and consents to proceed with the evaluation remotely. Accompanied by: Self Primary Problem List: ACTIVE PROBLEM LIST Paralysis (Hcc) Pots (Postural Orthostatic Tachycardia Syndrome) Syncope Hyperlipidemia Ldl Goal <70 Migraine Arnold-Chiari Malformation (Hcc) Post Covid-19 Condition, Unspecified Sinus Tachycardia Palpitations Hx of Syncope Finding of Above Normal Blood Pressure Depression With Anxiety Chest Pain Central Cord Syndrome (Hcc) Calculus of Kidney Chief Complaint: migraines Impression and Plan from last visit: 05/03/[address] Daily IMPRESSION: Pastor Heller is a 32 year old year old female with a significant past medical history of POTS (on Ivabridine), Chiaari malformation, depression, ovarian cyst, nephrolithiasis who presents for further evaluation regarding headaches. On today's evaluation, the patient meets criteria for chronic migraine. - In the setting of a normal neurological physical examination and typical migraine features, there is no indication for additional neuroimaging at this time. - For symptomatic relief, on a preventative basis, patient was initiated on Propranolol 60 mg daily. The patient was counseled to take this medication on a daily basis to reduce the severity and frequency of migraine. Keeping a strict log of headaches was encouraged and discussed with the patient. - As an abortive agent, the patient was initiated on Rizatriptan 5 mg at the onset of the headache, which can be repeated if symptoms do not resolve in 2 hours. The patient was counseled not to exceed any abortive agents more than 10 days a month with the concern for medication overuse headache. - Follow-up in 3 months PRN. PLAN: Diagnosis: Chronic migraine Preventive: Propranolol 60 mg daily Abortive: Rizatriptan 5 mg PRN HEADACHE MANAGEMENT: (You are the primary guardian of your health and headache. Keep track of all medications: This includes the reason for use, side effects and benefits.) Headache education was done. Discussed lifestyle modification including increased oral hydration, decreased caffeine, exercise and stress management. Discussed treatment options including preventive and acute medications, natural supplements, and infusion therapy. Discussed medication overuse headache and to limit use of acute treatments to no more than 2 days/week or 10 days/month. Discussed medication side effects, adverse reactions and drug interactions. Written educational materials and patient instructions outlining all of the above were given. Follow-up: 3 months Interval Headache History: Pastor Heller is a 33 year old year old female, with a history of POTS,Chiari malformation, depression, ovarian cyst, nephrolithiasis presenting today for annual visit. She has seen improvement to migraine/headache intensity and frequency with initiation of propranolol. Migraine days have decreased by half (16 -> 8), and she only gets regular headache about 2 days per week now. Migraines are not as severe as they once were. She is tolerating propranolol without ASEs - HR and BP readings have been normal/stable. Only new feature associated with headaches is more bilateral occipital pain with allodynia than she remembers having previously. She was unsure if it was related to her Chiari. Sometimes headaches feel worse when she lays down, but generally they feel better. No other high pressure features associated. Of note, she has suffered from chronic constipation over the last several months. She underwent colonoscopy/EGD on Wednesday to rule out Crohn's vs IBS - tissue samples are pending. She did wake up from procedure with very severe migraine and tachycardia - she thinks from being given fentanyl and proprofol. She has lingering, mild headache now. Headache 1 Onset: - Childhood/teenage years Location: holcephalic, occipital, bilateral and temporal (pentecostal pain will switch sides based on migraine) Quality/Description: throbbing and sharp Associated Symptoms: Photophobia: yes Phonophobia: yes Nausea: yes Vomiting: no Other symptoms: neck pain Worse with activity: yes Number of migraine headache days/month: 8 Migraine Severity: 5-7/10. Number of NON-migraine headache days/month: 8 Total Number of headache days/month: 16 Number of headache free days/month: 14 Duration of headaches with treatment: 2 days (48 hours) Current preventive treatment: Propranolol Current abortive treatment: Excedrin, ibuprofen Triggers: none Onset of headache to peak: abrupt Positional changes: yes - sometimes worse when lying down, but generally more comfortable to lie down on ho with neck support pillow Aura: fortification spectra, scotoma and sunspots (not every migraine) Allodynia: yes Lifestyle: Sleep: Awful; 5-6 hours per night, wakes up frequently; has tried melatonin, magnesium, benadryl Diet: decreased caffeine intake; 1 cup of coffee per day Preventative: Propranolol, CoQ10 Abortive: Excedrin, ibuprofen # of doses of abortive medications per month: 16 times per month at least Analgesic Butalbital/acetaminophen/caffein e (Fioricet) Anti-Convulsant Gabapentin (Neurontin) 300 mg TID Aggressive side-effects Oxcarbazepine (Trileptal) Topiramate (Topamax, Trokendi XL, Qudexy) Contraindicated due to kidney stones Anti-Depressant and Antipsychotic Nortriptyline (Pamelor, Aventyl) Antiemetics Ondansetron Anti-Migraine Rizatriptan (Maxalt) Blood Pressure Metoprolol (Lopressor,Toprol XL) GEPANTS Rimegepant (Nurtec) Muscle Relaxer Methocarbamol (Robaxin) low BP Tizanidine (Zanaflex) Sleep Aids Melatonin Supplements CoQ10 Magnesium Over the Counter Medications Acetaminophen/Aspirin/Caffeine (Excedrin, Goody s) Ibuprofen (Advil, Motrin) PAST MEDICAL HISTORY Diagnosis Date Arnold-Chiari malformation [...] * Hives Morphine Other: See Comments Tachycardia Current Medications: ondansetron orally disintegrating (ZOFRAN ODT) 4 mg disintegrating tablet Take 4 mg by mouth every 8 hours as needed for nausea/vomiting. propranolol ER (INDERAL LA) 60 mg 24 hr capsule TAKE 1 CAPSULE BY MOUTH EVERY DAY PREMARIN 0.9 mg tablet Take 0.9 mg by mouth once daily. atomoxetine (STRATTERA) 40 mg capsule Take 40 mg by mouth once daily. cyanocobalamin/cobamamide (B12 SUBLINGUAL) Dissolve under the tongue. COQ10, UBIQUINOL, ORAL Take by mouth. Ipdyk-3-[id number]-EPA-Fish Oil (FISH OIL) 1,000 mg (120 mg-180 mg) cap nortriptyline (PAMELOR) 10 mg capsule Take 1 capsule by mouth daily at bedtime. naratriptan (AMERGE) 2.5 mg tablet Take 1 tablet by mouth as needed for migraine headache (see administration instructions). TAKE ONE(1) TABLET AT THE ONSET OF HEADACHE; IF HEADACHE RETURNS OR DOES NOT FULLY RESOLVE, THE DOSE MAY BE REPEATED AFTER 4 HOURS; DO NOT EXCEED FIVE(5) MG IN 24 HOURS. methocarbamol (ROBAXIN) 500 mg tablet Take 1 tablet by mouth two times a day as needed. (Patient taking differently: Take 500 mg by mouth once daily as needed.) I have reviewed the Health Status Assessment responses and discussed these with the patient: yes Heidi Casiano APRN.BAKERY TEAM LEADER HEADACHE SCORES: 05/03/2023 06/28/2024 Headache Questions ID Migraine Screener: 3 (Positive) Days missed from work or school in the last month: 10 Days headache pain free in the last month: 15 Days per month with ALL of the following symptoms - decreased productivity, light sensitivity and nausea: 15 Initial improvement of headache after botox injection at last visit: Not applicable, I did not have a botox injection at my last visit PRN medication usage in the last month: 15 Patient impression of improvement since last visit: No change 05/03/2023 06/28/2024 HIT-6 HIT-6 68 (Severe impact) 66 (Severe impact) 06/07/2023 02/07/2024 06/28/2024 ESTHELA - 2/7 SCORES ESTHELA-2 Score 2 0 0 ESTHELA-7 Score 5 9 05/03/2023 06/28/2024 Migraine Specific QOL - Higher scores indicate better HRQL Role Function-Restrictive Transformed Score (range: 0-100) 37.14 40 Role Function-Preventive Transformed Score (range: 0-100) 40 40 Emotional Function Transformed Score (range: 0-100) 40 26.67 05/03/2023 06/07/2023 06/28/2024 PHQ-9 Score 7 10 12 Studies to Review: No MRI Head/Brain - Last 2 Impressions MRI BRAIN WO/W IVCON Exam End: 06/22/2022 2:17 PM (Final result) MRI BRAIN WO/W IVCON Exam End: 12/22/2021 9:15 AM (Final result) MRA Head and/or Neck - Last 2 Impressions No resulted procedures found. MRI Cervical Spine - Last 2 Impressions No resulted procedures found. CT Head/Brain - Last [address] BRAIN WO IVCON Exam End: 12/01/2021 9:59 AM (Final result) CT BRAIN WO IVCON Exam End: 11/09/2021 12:19 PM (Final result) CTA Head and/or Neck - Last 2 CTA NECK W IVCON Exam End: 11/13/2021 10:06 AM (Final result) CTA HEAD W IVCON Exam End: 11/13/2021 10:06 AM (Final result) Labs to Review: No - Most recent CMP and CBC below Latest Ref Rng & Units 04/20/2023 CMP Sodium 136 - 144 mmol/L 142 Potassium 3.7 - 5.1 mmol/L 3.5 Chloride 97 - 105 mmol/L 103 CO2 22 - 30 mmol/L 24 Glucose 74 - 99 mg/dL 124 BUN 7 - 21 mg/dL 10 Creatinine 0.58 - 0.96 mg/dL 0.67 EGFR >=60 mL/min/1.73m 119 Protein, Total 6.3 - 8.0 g/dL 7.3 Albumin 3.9 - 4.9 g/dL 4.8 Calcium 8.5 - 10.2 mg/dL 9.7 Bilirubin, Total 0.2 - 1.3 mg/dL 0.3 AST 13 - 35 U/L 21 ALT 7 - 38 U/L 15 Alkaline Phosphatase 34 - 123 U/L 64 Latest Ref Rng & Units 08/27/2023 CBC Hemoglobin Total, Whole Blood 11.5 - 15.5 g/dL 13.1 New Health Issues: Yes, see HPI Review of Systems: Review of system: unchanged from the previous visit unless otherwise stated in HPI (sleep patterns, mood, energy, appetite, stress, exercising). Physical Examination: Vital Signs: No vital signs taken for this visit due to nature of virtual visit. General: well appearing, in no acute distress, alert Pain Behaviors: no pain behaviors observed Neurological: Mental Status: Alert and oriented to person, place and time. Affect is normal. Speech is spontaneous and fluent without dysarthria. Short and fpc memory, cognition and general fund of knowledge are good. Attention span and concentration are excellent. HEENT: Head is normocephalic and features were symmetric. Musculoskeletal: Patient able to sit up right in chair for entirety of visit. Cranial Nerves: III, IV, -EOMI: full. VII-face is symmetric without evidence of weakness. VIII-hearing intact. IMPRESSION: Chiari i malformation (hcc) Intractable migraine without aura and without status migrainosus (primary encounter diagnosis) Bilateral occipital neuralgia Pastor Heller is a 33 year old year old female, with a history of POTS (on Ivabridine), Chiari malformation, depression, ovarian cyst, nephrolithiasis . Her neurological examination is essentially normal at this visit although this is limited due to nature of telehealth. Although migraine features are overall typical, she had been ordered MRI and MRA previously by neurology for Chiari monitoring, which she had never completed. She is requesting new orders be faxed over to [facility] for completion, which I am happy to help facilitate. She has seen improvement on propranolol and is tolerating the medication well, so recommend continuing. Given bilateral occipital pain with allodynia, she may have element of bilateral occipital neuralgia contributing to overall headache pattern. She was previously on nortriptyline and thinks she found it helpful - is unsure why she stopped. Would recommend restarting at this time. She is no longer taking rizatriptan - does not believe it was helpful. Will trial naratriptan in its place. [facility] has worked best for her in the past, but was very expensive (likely due to lack of previous triptan trials). Will aim to get her restarted on nurtec after naratriptan trial. Reviewed dosing, administration, and side effects of all medications prescribed. She should follow up in 3 months, or sooner if needed. Patient agreeable to plan of care, and all questions answered. PLAN: Prevention: Restart nortriptyline 10mg QHS - can increase to 20mg after 2 weeks if tolerating -Continue propranolol 60mg daily, CoQ10 Abortive: Trial naratriptan 2.5mg PRN MRI/MRA brain for Chiari monitoring Follow up in 3 months, PRN Headache education was done. Discussed lifestyle modification including increased oral hydration, decreased caffeine, exercise and stress management. Discussed treatment options including preventive and acute medications, natural supplements. Discussed medication overuse headache and to limit use of acute treatments to no more than 2 days/week or 10 days/month. Discussed medication side effects, adverse reactions and drug interactions. Written educational materials and patient instructions outlining all of the above were given. HEADACHE MANAGEMENT: (You are the primary guardian of your health and headache. Keep track of all medications: This includes the reason for use, side effects and benefits.) MEDICATION TREATMENT: Medications to Start Taking nortriptyline (PAMELOR) 10 mg capsule Take 1 capsule by mouth daily at bedtime. naratriptan (AMERGE) 2.5 mg tablet Take 1 tablet by mouth as needed for migraine headache (see administration instructions). TAKE ONE(1) TABLET AT THE ONSET OF HEADACHE; IF HEADACHE RETURNS OR DOES NOT FULLY RESOLVE, THE DOSE MAY BE REPEATED AFTER 4 HOURS; DO NOT EXCEED FIVE(5) MG IN 24 HOURS. Follow-up: 2 months, 3 months, PRN Level of service: Est level 4 (30-39 min). Time spent 35 min on the day of service, which included preparing to see the patient, [id number] patient care, completing clinical documentation, obtaining and/or reviewing separately obtained history, performing a medically appropriate examination, counseling and educating the patient/family/caregiver, ordering medications, tests, or procedures, and care coordination (not separately reported). Heidi Casiano APRN.HUE Headache Section [facility] June 28, 2024 documented in this encounter [facility] 06-28-2024 Note HNO ID: [id number] Author: HEIDI CASIANO APRN.HUE Service: ? Author Type: Nurse Practitioner Type: Progress Notes Filed: 06/28/2024 12:05 Note Text: Headache Center - Follow up Virtual Visit This visit was conducted as a virtual visit, with patient's permission, via Zoom. Patient location - [place], [place] Pastor Heller was identified by name and and consented to the video evaluation and its limitations. Based on this evaluation it may be necessary for them to schedule a follow up evaluation with me or other neurologists for formal physical examination and if necessary,other studies. I have communicated my name and active licensure. The patient's identity and physical location were verified at the time of this visit. Either the patient or their legal sales representative womens health has been informed of the risks and benefits of -- and alternatives to -- treatment through a remote evaluation and consents to proceed with the evaluation remotely. Accompanied by: Self Primary Problem List: ACTIVE PROBLEM LIST Paralysis (Hcc) Pots (Postural Orthostatic Tachycardia Syndrome) Syncope Hyperlipidemia Ldl Goal <70 Migraine Arnold-Chiari Malformation (Hcc) Post Covid-19 Condition, Unspecified Sinus Tachycardia Palpitations Hx of Syncope Finding of Above Normal Blood Pressure Depression With Anxiety Chest Pain Central Cord Syndrome (Hcc) Calculus of Kidney Chief Complaint: migraines Impression and Plan from last visit: 05/03/[address] Daily IMPRESSION: Pastor Heller is a 32 year old year old female with a significant past medical history of POTS (on Ivabridine), Chiaari malformation, depression, ovarian cyst, nephrolithiasis who presents for further evaluation regarding headaches. On today's evaluation, the patient meets criteria for chronic migraine. - In the setting of a normal neurological physical examination and typical migraine features, there is no indication for additional neuroimaging at this time. - For symptomatic relief, on a preventative basis, patient was initiated on Propranolol 60 mg daily. The patient was counseled to take this medication on a daily basis to reduce the severity and frequency of migraine. Keeping a strict log of headaches was encouraged and discussed with the patient. - As an abortive agent, the patient was initiated on Rizatriptan 5 mg at the onset of the headache, which can be repeated if symptoms do not resolve in 2 hours. The patient was counseled not to exceed any abortive agents more than 10 days a month with the concern for medication overuse headache. - Follow-up in 3 months PRN. PLAN: Diagnosis: Chronic migraine Preventive: Propranolol 60 mg daily Abortive: Rizatriptan 5 mg PRN HEADACHE MANAGEMENT: (You are the primary guardian of your health and headache. Keep track of all medications: This includes the reason for use, side effects and benefits.) Headache education was done. Discussed lifestyle modification including increased oral hydration, decreased caffeine, exercise and stress management. Discussed treatment options including preventive and acute medications, natural supplements, and infusion therapy. Discussed medication overuse headache and to limit use of acute treatments to no more than 2 days/week or 10 days/month. Discussed medication side effects, adverse reactions and drug interactions. Written educational materials and patient instructions outlining all of the above were given. Follow-up: 3 months Interval Headache History: Pastor Heller is a 33 year old year old female, with a history of POTS,Chiari malformation, depression, ovarian cyst, nephrolithiasis presenting today for annual visit. She has seen improvement to migraine/headache intensity and frequency with initiation of propranolol. Migraine days have decreased by half (16 -> 8), and she only gets regular headache about 2 days per week now. Migraines are not as severe as they once were. She is tolerating propranolol without ASEs - HR and BP readings have been normal/stable. Only new feature associated with headaches is more bilateral occipital pain with allodynia than she remembers having previously. She was unsure if it was related to her Chiari. Sometimes headaches feel worse when she lays down, but generally they feel better. No other high pressure features associated. Of note, she has suffered from chronic constipation over the last several months. She underwent colonoscopy/EGD on Wednesday to rule out Crohn's vs IBS - tissue samples are pending. She did wake up from procedure with very severe migraine and tachycardia - she thinks from being given fentanyl and proprofol. She has lingering, mild headache now. Headache 1 Onset: - Childhood/teenage years Location: holcephalic, occipital, bilateral and temporal (pentecostal pain will switch sides based on migraine) Quality/Description: throbbing and sharp Associated Symptoms: Photophobia: (more content not included)... [facility] 06-20-2024 Miscellaneous Notes egd/colon - [place] ASA2, MAC, JULES Golytely prep ordered thru pharmacy and 2-Day instructions were given to patient Procedure: 06-26-24 at 7 documented in this encounter [facility] 06-20-2024 Telephone encounter Note egd/colon - [place] ASA2, MAC, JULES Golytely prep ordered thru pharmacy and 2-Day instructions were given to patient Procedure: 06-26-24 at 7 [facility] 06-20-2024 Miscellaneous Notes Golytely prep documented in this encounter [facility] 06-20-2024 Telephone encounter Note Golytely prep [facility] 06-20-2024 History of Present illness Narrative [facility] New Patient Visit - History & Physical CHIEF COMPLAINT: Chief Complaint Patient presents with Constipation Patient is here today for Constipation. Patient states she has up to 12 days without a bowel movement. Patient states she also has episodes of vomiting and bloating. Patient denies other GI symptoms. Vomiting Bloated HISTORY OF PRESENT ILLNESS: Pastor Heller is a 33 y.o. female who has a PMH of POTS, HLD, long-COVID who presents to our office today for ED follow up for abdominal pain, terminal ileitis. Patient presented to the ED on 05/17/2024 with liquid stools for 10 days, RUQ pain, nausea, vomiting. She was sent to the ER by General surgery nurse practitioner to be evaluated for possible cholecystitis or bowel obstruction as she had not been passing gas. She had also presented to the ER around 6 days prior to this visit, diagnosed with colitis and started on Cipro and Flagyl. She followed up with her PCP in the next day and was given a steroid shot as well as IM Rocephin. She was given Keflex as well but had an allergic reaction. CTAP on 05/17/2024 showed terminal ileitis. Patient informs me she was never having any liquid stools, she remains chronically constipated. She states she will have small, [place] like skinny bowel movements every 5-10 days. She previously saw a general surgeon many years ago for an EGD and colonoscopy and was diagnosed with IBS, was placed on Linzess 72 mcg which caused significant diarrhea. She does not recall completing bowel purge at that time. She does not recall the results of her procedures, unfortunately, we do not have these reports on file. She believes these were performed by Dr. Carlton, however, she is uncertain. She has been constipated for many years, will typically experience bilateral lower abdominal pain, abdominal bloating and difficulty passing gas the further she goes between defecation. She has tried MiraLax [id number] 17 g b.i.d. without relief. She is currently taking magnesium without relief. She does experience intermittent episodes of bright red blood per rectum, typically painless, in the toilet bowl. She experiences chronic RUQ abdominal pain, chronic nausea as well as early satiety. Again, ongoing for many years. CTAP from 05/17/2024 also showed focal fatty infiltration involving the fissure for ligamentum teres. ALT was elevated at 32 in 05/2024, other LFTs normal. We will discuss this at her follow-up visit as today's visit was focused on her other symptoms. Denies other GI symptoms, associated symptoms or alarm symptoms. Denies tobacco use, marijuana use, illicit drug use, persistent NSAID use, persistent alcohol use. Multiple maternal aunts have IBD. The patient denies any known family history of esophageal, gastric, liver, pancreatic or colorectal cancers. Denies any known family history of other digestive disorders or diseases. Weight 06/20/24 0706 52.8 kg (116 lb 6.4 oz) 05/17/24 1512 53.1 kg (117 lb) 05/17/24 1407 53.2 kg (117 lb 3.2 oz) 02/11/24 0955 54.4 kg (120 lb) 01/16/23 1852 54.4 kg (120 lb) 01/15/23 0746 54.4 kg (120 lb) PAST MEDICAL HISTORY Past Medical History: Diagnosis Date Chronic kidney disease COVID Syncopal episodes PREVIOUS ENDOSCOPIC PROCEDURES: None on file PREVIOUS IMAGIN05/17/2024 CT AP with contrast Constellation of findings suggestive of terminal ileitis (infectious/inflammatory, amongst other etiologies). Correlation with patient history and serology, particularly regarding inflammatory bowel disease, may be of diagnostic value. Nondilated gallbladder without evidence of radiopaque gallstones. Appendix is within normal limits. Focal fatty infiltration involving the fissure for ligamentum teres. Otherwise unremarkable for technique. 02/15/2024 KUB Unremarkable exam. 05/03/2020 CT AP with contrast Unremarkable GI exam. Past Surgical History: Past Surgical History: Procedure Laterality Date BREAST BIOPSY Right 07/22/2018 needle bx. rt breast fibroadenoma BREAST EXCISIONAL BIOPSY Right 2019, fibroadenoma GANGLION CYST EXCISION Right HYSTERECTOMY KIDNEY SURGERY Right LITHOTRIPSY Current Medications: Current Outpatient Medications: atomoxetine (STRATTERA) 25 mg capsule, Take 1 capsule (25 mg total) by mouth in the morning. Take in the morning., Disp: , Rfl: COQ10, UBIQUINOL, ORAL, Take by mouth., Disp: , Rfl: cyanocobalamin-cobamamide 5,000-100 mcg lozenge, Dissolve in the mouth daily., Disp: , Rfl: estrogens, conjugated, (PREMARIN) 0.625 mg tablet, Take 0.9 mg by mouth in the morning., Disp: , Rfl: hyoscyamine (ANASPAZ,LEVSIN) 0.125 mg tablet, every 4 (four) hours as needed., Disp: , Rfl: metroNIDAZOLE (FLAGYL) 500 mg tablet, 1 tablet Orally every 12 hours, Disp: , Rfl: ondansetron ODT (ZOFRAN ODT) 4 mg disintegrating tablet, Dissolve 1 tablet (4 mg total) on tongue every 8 (eight) hours as needed for nausea or vomiting., Disp: 60 tablet, Rfl: 2 oxyCODONE-acetaminophen (PERCOCET) 5-325 mg per tablet, Take 1 tablet by mouth every 6 (six) hours as needed., Disp: , Rfl: phenazopyridine (PYRIDIUM) 200 mg tablet, 3 (three) times a day., Disp: , Rfl: promethazine (PHENERGAN) 25 mg tablet, Take 1 tablet (25 mg total) by mouth every 6 (six) hours as needed for nausea or vomiting., Disp: 15 tablet, Rfl: 0 propranolol LA (INDERAL LA) 60 mg 24 hr capsule, Take 1 capsule (60 mg total) by mouth in the morning., Disp: , Rfl: ciprofloxacin HCl (CIPRO) 500 mg tablet, Take 1 tablet (500 mg total) by mouth in the morning and 1 tablet (500 mg total) before bedtime., Disp: , Rfl: I reviewed and reconciled this patient's medication list today. The list included in this note is the most up to date list that I can attest to at this time based on the information that the patient has provided me and the electronic medical record. ALLERGIES: Bactrim [sulfamethoxazole-trimethoprim], Keflex [cephalexin], Sulfa (sulfonamide antibiotics), Adhesive tape-silicones, and Morphine SOCIAL HISTORY: Social History Tobacco Use Smoking status: Former Smokeless tobacco: Never Tobacco comments: 9 YEAR AGO Vaping Use Vaping status: Never Used Substance Use Topics Alcohol use: Yes Comment: occasional Drug use: No FAMILY HISTORY: Family History Problem Relation Age of Onset Breast cancer Paternal Grandmother 60 Colon cancer Neg Hx ASSESSMENTS: REVIEW OF SYSTEMS: Review of Systems Constitutional: Positive for appetite change. Negative for unexpected weight change. HENT: Negative for trouble swallowing. Gastrointestinal: Positive for abdominal pain, anal bleeding, constipation and nausea. Negative for abdominal distention, blood in stool, diarrhea, rectal pain and vomiting. Skin: Negative for color change. PHYSICAL EXAM: Vitals: 06/20/24 0706 BP: 122/72 Weight: 52.8 kg (116 lb 6.4 oz) Height: 152.4 cm (5') Body mass index is 22.73 kg/m . Physical Exam Constitutional: General: She is not in acute distress. Appearance: She is not toxic-appearing. Eyes: General: No scleral icterus. Cardiovascular: Rate and Rhythm: Normal rate and regular rhythm. Heart sounds: Normal heart sounds. No murmur heard. Pulmonary: Effort: Pulmonary effort is normal. Breath sounds: Normal breath sounds. Abdominal: General: Bowel sounds are normal. There is no distension. Palpations: Abdomen is soft. Tenderness: There is no abdominal tenderness. There is no guarding or rebound. Skin: Coloration: Skin is not jaundiced or pale. Neurological: Mental Status: She is alert. Psychiatric: Mood and Affect: Mood normal. Behavior: Behavior normal. PERTINENT DATA: CBC: Lab Results Component Value Date WBC 7.5 05/17/2024 HGB 13.6 05/17/2024 HCT 40.3 05/17/2024 MCV 90 05/17/2024 RDW 12.6 05/17/2024 PLT 247 05/17/2024 CMP: Lab Results Component Value Date K 3.9 05/17/2024 CL 100 05/17/2024 CO2 27 05/17/2024 BUN 8 05/17/2024 GLU 99 05/17/2024 No results found for: INR , PROTIME ASSESSMENT AND PLAN: Pastor Heller is a 33 y.o. female who has a PMH of POTS, HLD, long-COVID who presents to our office today for ED follow up for abdominal pain, terminal ileitis. Chronic Constipation / Abdominal Bloating / Abdominal Pain / Hematochezia / Multiple Maternal Aunts with IBD / Terminal Ileitis on Imaging: Plan for colonoscopy, fecal calprotectin, ESR and CRP. After completing her 06/26/2024 colonoscopy, she will start samples of Linzess 72 mcg once daily, 30 minutes prior to breakfast around 2 days after colonoscopy. This medication again despite prior episodes of diarrhea. Advised she call the office 10 days into her samples for an update on efficacy. Chronic Nausea & RUQ Pain / Early Satiety: Plan for EGD. Consider gastric emptying study, PPI or H2 shilpi pending EGD. She is scheduled for 06/26/2024. Isolated Mild Elevation of ALT / Hepatic Steatosis: We will discuss at her follow-up visit as today's visit focused on her other symptoms. EGD/CLN w/ Dr. [place], ASA2, MAC only at [facility]. Needs 2 day prep. I have discussed the risks and benefits of endoscopy including bleeding, infection, perforation/tear as well as anesthesia risks. Patient verbalized understanding and is agreeable to proceed. Further recommendations pending workup/therapy as planned. Patient is aware and agreeable to this plan. Patient is to follow-up 1 month s/p EGD/CLN or sooner as needed. Orders Placed This Encounter Procedures Erythrocyte Sedimentation Rate (ESR) C-reactive protein Calprotectin, F EGD Colonoscopy Total time spent was 40 minutes: Preparing to see the patient (e.g., review of tests) Obtaining and/or reviewing separately obtained history Performing a medically appropriate examination and/or evaluation Counseling and educating the patient/family/caregiver Ordering medications, tests, or procedures LORENZA DUNCAN PA-C [address], [address] [place] [address] PH: [phone] Patient to follow with Lorenza Duncan PA-C and Dr. Richmond This note is dictated with the use of M*Modal.Please note that this dictation was completed with computer voice recognition software. Quite often unanticipated grammatical, syntax, homophones, and other interpretive errors are inadvertently transcribed by the computer software. Please disregard these errors. Please excuse any errors that have escaped final proofreading. Lorenza Duncan PA-C 06/20/24 0744 [facility] Inst[facility] Lorenza Duncan PA-C - 06/20/2024 7:15 AM EDT EGD and colonoscopy with Dr. Richmond Blood work Stool study Two days after colonoscopy, start Linzess 72mcg daily, 30 minutes prior to breakfast. Call 10 days into the medication trial to give update on symptoms. [facility] Telephone encounter Note Physician: Killian Call from pharmacy requesting refill. Please E-Scribe Last office visit 05/03/23 with Killian virtual Next office visit 06/23/2024 with Killian Requested Prescriptions Pending Prescriptions Disp Refills propranolol ER (INDERAL LA) 60 mg 24 hr capsule [Pharmacy Med Name: PROPRANOLOL ER 60 MG CAPSULE] 90 capsule 2 Sig: TAKE 1 CAPSULE BY MOUTH EVERY DAY Pharmacy Name: CONY Rodriges [facility] 06-12-2024 Miscellaneous Notes Physician: Killian Call from pharmacy requesting refill. Please E-Scribe Last office visit 05/03/23 with Killian virtual Next office visit 06/23/2024 with Killian Requested Prescriptions Pending Prescriptions Disp Refills propranolol ER (INDERAL LA) 60 mg 24 hr capsule [Pharmacy Med Name: PROPRANOLOL ER 60 MG CAPSULE] 90 capsule 2 Sig: TAKE 1 CAPSULE BY MOUTH EVERY DAY Pharmacy Name: CONY Rodriges documented in this encounter [facility] 05-17-2024 History of Present illness Narrative Images from the original note were not included. Chief Complaint: Abdominal pain History of Present Illness Pastor Heller is a 33 y.o. female who presents to the office with several GI concerns. She states 2 months ago she started having bright red blood per rectum. The blood is on the toilet paper and in the toilet bowl. She states she does not have the urge to have a bowel movement. It has been 10 days since her last formed bowel movement. She reports that she had watery output on Wednesday, but no stool. She has not passed any gas since Wednesday either. She also reports significant nausea. She is able to tolerate liquids, but can not keep solid food down. She was seen in the [place] ED on 05/11/2024. She showed me records on her phone. CT abdomen and pelvis revealed acute cholecystitis and mild colitis. Abdominal ultrasound did not show any gallstones. She was discharged home on Cipro and Flagyl. She has been taking this with no relief in symptoms. She has had constant right upper quadrant pain since ED visit. She also had fever over the weekend. She feels her abdomen is distended. No family history of IBD. She states Dr. Carlton has done a colonoscopy on her in the past. She has history of hysterectomy. Review of Systems Constitutional: Positive for unexpected weight change. Negative for fever. HENT: Negative for trouble swallowing. Respiratory: Negative for shortness of breath. Cardiovascular: Negative for chest pain. Gastrointestinal: Positive for nausea, vomiting, abdominal pain, constipation and blood in stool. Genitourinary: Negative for dysuria and difficulty urinating. Musculoskeletal: Negative for gait problem. Skin: Negative for rash and wound. Neurological: Negative for dizziness, weakness and light-headedness. Hematological: Does not bruise/bleed easily. Psychiatric/Behavioral: Negative for confusion. Past Medical History: Diagnosis Date Chronic kidney disease COVID Syncopal episodes Past Surgical History: Procedure Laterality Date BREAST BIOPSY Right 07/22/2018 needle bx. rt breast fibroadenoma BREAST EXCISIONAL BIOPSY Right 2019, fibroadenoma GANGLION CYST EXCISION Right HYSTERECTOMY KIDNEY SURGERY Right LITHOTRIPSY Allergies Allergen Reactions Bactrim [Sulfamethoxazole-Trimethoprim] Hives Keflex [Cephalexin] Hives Sulfa (Sulfonamide Antibiotics) Hives Adhesive Tape-Silicones Rash Morphine Palpitations Current Outpatient Medications: atomoxetine (STRATTERA) 25 mg capsule, Take 1 capsule (25 mg total) by mouth in the morning. Take in the morning., Disp: , Rfl: ciprofloxacin HCl (CIPRO) 500 mg tablet, Take 1 tablet (500 mg total) by mouth in the morning and 1 tablet (500 mg total) before bedtime., Disp: , Rfl: COQ10, UBIQUINOL, ORAL, Take by mouth., Disp: , Rfl: cyanocobalamin-cobamamide 5,000-100 mcg lozenge, Dissolve in the mouth daily., Disp: , Rfl: estrogens, conjugated, (PREMARIN) 0.625 mg tablet, Take 0.9 mg by mouth in the morning., Disp: , Rfl: hyoscyamine (ANASPAZ,LEVSIN) 0.125 mg tablet, every 4 (four) hours as needed., Disp: , Rfl: ondansetron ODT (ZOFRAN ODT) 4 mg disintegrating tablet, Dissolve 1 tablet (4 mg total) on tongue every 8 (eight) hours as needed for nausea or vomiting., Disp: 60 tablet, Rfl: 2 oxyCODONE-acetaminophen (PERCOCET) 5-325 mg per tablet, Take 1 tablet by mouth every 6 (six) hours as needed. Max Daily Amount: 4 tablets, Disp: , Rfl: propranolol LA (INDERAL LA) 60 mg 24 hr capsule, Take 1 capsule (60 mg total) by mouth in the morning., Disp: , Rfl: promethazine (PHENERGAN) 25 mg tablet, Take 1 tablet (25 mg total) by mouth every 6 (six) hours as needed for nausea or vomiting., Disp: 15 tablet, Rfl: 0 No current facility-administered medications for this visit. Social History Socioeconomic History Marital status: Spouse name: Not on file Number of children: Not on file Years of education: Not on file Highest education level: Not on file Occupational History Not on file Tobacco Use Smoking status: Former Smokeless tobacco: Never Tobacco comments: 9 YEAR AGO Vaping Use Vaping status: Never Used Substance and Sexual Activity Alcohol use: Yes Comment: occasional Drug use: No Sexual activity: Yes Partners: Male Other Topics Concern Caffeine Use Yes Social History Narrative Not on file Social Drivers of Health Financial Resource Strain: Low Risk (01/22/2022) Received from [facility] Overall Financial Resource Strain (CARDIA) Difficulty of Paying Living Expenses: Not hard at all Food Insecurity: No Food Insecurity (04/23/2023) Hunger Screening Food Insecurity - Worry: Never True Food Insecurity - Inability: Never True Transportation Needs: No Transportation Needs (01/22/2022) Received from [facility] PRAPARE - Transportation Lack of Transportation (Medical): No Lack of Transportation (Non-Medical): No Physical Activity: Inactive (06/21/2018) [facility] Exercise Vital Sign Days of Exercise per Week: 0 days Minutes of Exercise per Session: 0 min Stress: Stress Concern Present (06/21/2018) Received from [facility] Citizen Of [place] [facility] Occup[facility] - Occupational Stress Questionnaire Feeling of Stress : To some extent Social Connections: Not on file Interpersonal Safety: Unknown (06/03/2023) Received from [facility] Fear of Current or Ex-Partner: Not on file Emotionally Abused: Not on file Physically Abused: Not on file Sexually Abused: Not on file Physically or Sexually Abused: Not on file Housing Instability: Unknown (01/22/2022) Received from [facility], [facility] Housing Stability Vital Sign Unable to Pay for Housing in the Last Year: No Number of Places Lived in the Last Year: Not on file Unstable Housing in the Last Year: No Family History Problem Relation Age of Onset Breast cancer Paternal Grandmother 60 Objective Physical Exam Constitutional: Appearance: Normal appearance. HENT: Head: Normocephalic and atraumatic. Mouth/Throat: Mouth: Mucous membranes are moist. Eyes: Pupils: Pupils are equal, round, and reactive to light. Cardiovascular: Rate and Rhythm: Normal rate and regular rhythm. Pulmonary: Effort: Pulmonary effort is normal. No respiratory distress. Abdominal: Palpations: Abdomen is soft. Tenderness: There is abdominal tenderness in the right upper quadrant, right lower quadrant, epigastric area and left lower quadrant. Comments: Moderate RUQ tenderness. Mild bilateral lower abdomen tenderness. Bowel sounds active. Musculoskeletal: General: Normal range of motion. Skin: General: Skin is warm and dry. Neurological: Mental Status: She is alert and oriented to person, place, and time. Mental status is at baseline. Vital Signs: Height 152.4 cm (5'), weight 53.2 kg (117 lb 3.2 oz). Respiratory Source: O2 Device: None (Room air) Admission Weight: Weight: 53.2 kg (117 lb 3.2 oz) Labs Lab Results Component Value Date WBC 7.5 05/17/2024 HGB 13.6 05/17/2024 HCT 40.3 05/17/2024 MCV 90 05/17/2024 PLT 247 05/17/2024 Lab Results Component Value Date GLU 99 05/17/2024 CALCIUM 9.6 05/17/2024 K 3.9 05/17/2024 CO2 27 05/17/2024 CL 100 05/17/2024 BUN 8 05/17/2024 CREATININE 0.75 05/17/2024 No results found for: AMYLASE Lab Results Component Value Date LIPASE 31 05/17/2024 Lab Results Component Value Date ALT 32 (H) 05/17/2024 ALT 32 (H) 05/17/2024 AST 31 05/17/2024 AST 31 05/17/2024 ALKPHOS 48 05/17/2024 No results found for: INR , PROTIME Assessment Pastor Heller is a 33-year-old female with abdominal pain, nausea, vomiting, fever, no BM x 10 days. Plan Instructed patient to go to ED due to no improvement/worsening symptoms. Evaluation included: Preparing to see the patient (e.g., review of tests) Obtaining and/or reviewing separately obtained history Performing a medically appropriate examination and/or evaluation Counseling and educating the patient/family/caregiver Referring and communicating with other health childcare center administrator Colitis [K52.9] OSITO CARREON [facility] [place] This note was created with the assistance of a speech recognition program. While intending to generate a timely document that accurately reflects the content of the visit, no guarantee can be provided that every grammatical or spelling mistake has been or will be identified or corrected. Thank you for your understanding. OSITO Carreon 05/18/24 1043 documented in this encounter [facility] 05-16-2024 Miscellaneous Notes Called Pastor regarding the abdominal pain & colitis referral that our office received from Dr Evangelista, left a message on voicemail to call the office back to schedule an appointment. Pastor called the office back and we scheduled her an appointment for 05/17/2024. documented in this encounter [facility] 05-16-2024 Telephone encounter Note Called Pastor regarding the abdominal pain & colitis referral that our office received from Dr Evangelista, left a message on voicemail to call the office back to schedule an appointment. [facility] 05-16-2024 Telephone encounter Note Pastor called the office back and we scheduled her an appointment for 05/17/2024. [facility] 02-18-2024 Telephone encounter Note See telephone and MCM. [facility] 02-18-2024 Miscellaneous Notes See telephone and MCM. documented in this encounter [facility] 02-18-2024 Telephone encounter Note Called to discussed new medicine nortriptyline. SE, benefits risks and instructions. Patient is aware and agrees. [facility] 02-18-2024 Miscellaneous Notes Called to discussed new medicine nortriptyline. SE, benefits risks and instructions. Patient is aware and agrees. documented in this encounter [facility] 02-18-2024 Telephone encounter Note Request for medical clearance scanned into shared EP drive. Response to request faxed and confirmation scanned into shared EP drive. [facility] 02-18-2024 Miscellaneous Notes Request for medical clearance scanned into shared EP drive. Response to request faxed and confirmation scanned into shared EP drive. documented in this encounter [facility] 02-16-2024 History of Present illness Narrative Influenza vaccine administered at this time. Patient tolerated well with no adverse reactions. VIS given to patient. documented in this encounter [facility] 02-07-2024 History of Present illness Narrative Images from the original note were not included. [facility] Neuromuscular [facility] Follow-Up VIRTUAL VISIT This is a virtual visit using Panjoom Video Visit. It required patient-provider interaction for the medical decision making as documented below. I have communicated my name and active licensure. The patient's identity and physical location were verified at the time of this visit. Either the patient or their legal sales representative womens health has been informed of the risks and [...] worsening symptoms. Plan to follow-up with either Massiel Natarajan APRN., CNP. or myself following appointment [...] tongue. COQ10, UBIQUINOL, ORAL Take by mouth. Irocr-1-DFZ-EPA-Fish Oil (FISH OIL) 1,000 mg (120 mg-180 [...] which included preparing to see the patient, [id number] patient care, completing clinical documentation, obtaining and/or reviewing separately obtained history, performing a medically appropriate examination, counseling and educating the patient/family/caregiver, and ordering medications, tests, or procedures. Brock Wang PA-C Neuromuscular Medicine [address] [place] [address]. [id number] Appointment: [phone] During our virtual visit encounter we discussed [...] problem? : Moderate documented in this encounter [facility] 02-07-2024 Note HNO ID: [id number] Author: BROCK WANG PA-C Service: ? Author Type: Physician Cut Off Machine Unloader Type: Progress Notes Filed: 02/07/2024 14:45 Note Text: [facility] Follow-Up VIRTUAL VISIT This is a virtual visit using Panjoom Video Visit. It required patient-provider interaction for the medical decision making as documented below. I have communicated my name and active licensure. The patient's identity and physical location were verified at the time of this visit. Either the patient or their legal sales representative womens health has been informed of the risks and [...] worsening symptoms. Plan to follow-up with either Massiel Natarajan APRN., CNP. or myself following appointment [...] tongue. COQ10, UBIQUINOL, ORAL Take by mouth. Eqtfl-6-EOF-EPA-Fish Oil (FISH OIL) 1,000 mg (120 mg-180 [...] Cerebellar tonsillar ectopia (more content not included)... [facility] 02-02-2024 History of Present illness Narrative Images from the original note were not included. [facility] [place] [facility] Department of Cardiovascular Medicine SECTION OF CARDIAC PACING and ELECTROPHYSIOLOGY OUTPATIENT VISIT DATE February 02, 2024 OUTPATIENT VISIT TYPE ESTABLISHED PRIMARY CARE PHYSICIAN: Siobhan Evangelista [address] [place] [address] CHIEF COMPLAINT: syncope HISTORY OF PRESENT ILLNESS: [...] the prior echocardiographic exam performed on 01/23/2022 ([place]). There is no significant change. OS event [...] tongue. COQ10, UBIQUINOL, ORAL Take by mouth. Xxtai-5-VVH-EPA-Fish Oil (FISH OIL) 1,000 mg (120 mg-180 mg) cap methocarbamol (ROBAXIN) 500 mg tablet Take 1 tablet by mouth two times a day as needed. (Patient taking differently: Take 500 mg by mouth once daily as needed.) [facility] Syncope Center Score Please estimate the [...] I encourage her to look at the [facility] post COVID website for additional information about post COVID syndrome. She had been to the covid recover clinic, I provided her a pamphlet about the recover trial in case this was something she is interested in. We discussed [facility] has a virtual group visit for post covid cognitive dysfunction but I was not able to find the order in [facility]. We discussed her CPET indicates cardiac deconditioning, [...] available upon request. documented in this encounter [facility] 02-02-2024 Note HNO ID: [id number] Author: IRINA FINLEY DO Service: ? Author Type: Physician Type: Progress Notes Filed: 02/02/2024 12:58 Note Text: [facility] [place] [facility] Department of Cardiovascular Medicine SECTION OF CARDIAC PACING and ELECTROPHYSIOLOGY OUTPATIENT VISIT DATE February 02, 2024 OUTPATIENT VISIT TYPE ESTABLISHED PRIMARY CARE PHYSICIAN: Siobhan Evangelista [address] [place] [address] CHIEF COMPLAINT: syncope HISTORY OF PRESENT ILLNESS: [...] the prior echocardiographic exam performed on 01/23/2022 ([place]). There is no significant change. OS event [...] Smokeless tobacco: N (more content not included)... [facility] 10-28-2023 Telephone encounter Note Completed. [facility] Work Phone: 10-28-2023 Miscellaneous Notes Completed. documented in this encounter [facility] 10-11-2023 Telephone encounter Note Physician: Killian Call from patient requesting refill. Please E-Scribe Last office visit 05/03/23 with [facility] virtual Next office visit Not scheduled. Requested Prescriptions Pending Prescriptions Disp Refills propranolol ER (INDERAL LA) 60 mg 24 hr capsule [Pharmacy Med Name: PROPRANOLOL ER 60 MG CAPSULE] 90 capsule Sig: take 1 capsule by mouth every day Pharmacy Name: [facility] 10-11-2023 Miscellaneous Notes Physician: Killian Call from patient requesting refill. Please E-Scribe Last office visit 05/03/23 with [facility] virtual Next office visit Not scheduled. Requested Prescriptions Pending Prescriptions Disp Refills propranolol ER (INDERAL LA) 60 mg 24 hr capsule [Pharmacy Med Name: PROPRANOLOL ER 60 MG CAPSULE] 90 capsule Sig: take 1 capsule by mouth every day Pharmacy Name: [facility] documented in this encounter [facility] 08-27-2023 History of Present illness Narrative PULM FUNCTION SMARTBLOCK: Provider: Irina Finley DO Assisting Tech: Mynor Zamudio, HAULAGE ENGINE OPERATOR AB CPET: 1 documented in this encounter [facility] 08-24-2023 Telephone encounter Note Spoke with [...] shoes suitable for exercise. Pt verbalized understanding. [facility] 08-24-2023 Miscellaneous Notes Spoke with pt [...] Pt verbalized understanding. documented in this encounter [facility] 08-17-2023 History of Present illness Narrative Images from the original note were not included. [facility] [place] [facility] Department of Cardiovascular Medicine SECTION OF CARDIAC PACING and ELECTROPHYSIOLOGY OUTPATIENT VISIT DATE August 17, 2023 OUTPATIENT VISIT TYPE CONSULTATION PRIMARY CARE PHYSICIAN: Siobhan Evangelista [address] [place] [address] REFERRING PHYSICIAN Sujit Dougherty [address] [facility] [address] CHIEF COMPLAINT: syncope HISTORY OF PRESENT ILLNESS: Cardiac consultation at the request of Dr. Sujit Dougherty. A copy of this consultation note [...] the prior echocardiographic exam performed on 01/23/2022 ([place]). There is no significant change. 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 She wears knee high compression. She drinks [...] Orally Three times a day for 10 Fkpgt-4-TKI-EPA-Fish Oil (FISH OIL) 1,000 mg (120 mg-180 [...] Positive for: Excessive sweating and Frequent thirst [facility] Syncope Center Score Please estimate the [...] therapy. I recommend she look at the [facility] post COVID website as may provide her [...] available upon request. documented in this encounter [facility] 07-02-2023 Miscellaneous Notes Physician: Killian Call from patient requesting refill. Please E-Scribe Last office visit 05/03/23 with [facility] virtual Next office visit N/A Patient Comment: Rebecca, I hate to be a bother, but insurance contacted me and they will not fill unless it is for 90 days. Requested Prescriptions Pending Prescriptions Disp Refills propranolol ER (INDERAL LA) 60 mg 24 hr capsule 30 capsule 2 Sig: Take 1 capsule by mouth once daily. Pharmacy Name: [facility] documented in this encounter [facility] 06-29-2023 Miscellaneous Notes Physician: Killian Call from patient requesting refill. Please E-Scribe Last office visit 05/03/23 with Killian virtual Next office visit N/A Requested Prescriptions Pending Prescriptions Disp Refills propranolol ER (INDERAL LA) 60 mg 24 hr capsule 30 capsule 2 Sig: Take 1 capsule by mouth once daily. Pharmacy Name: [facility] documented in this encounter [facility] 06-03-2023 History of Present illness Narrative Images from the original note were not included. [facility] [place] [facility] Department of Cardiovascular Medicine SECTION [...] had been treated by Dr. Mcdonald [facility] for POTS. She was on different regimens [...] Huynh, et al. 2017 Guidelines of the [place] [employer] for the Diagnosis and Management [...] follow-up visit with me as needed. James Pinto MD, PhD Section of Preventive Cardiology [facility] Department of Cardiovascular Medicine [facility] [place] [address] Office Appointments: [phone] Voice recognition software was used in the creation of this document. There may be unintended errors in spelling, grammar, syntax or punctuation present. documented in this encounter [facility] 02-26-2023 History of Present illness Narrative PULM FUNCTION SMARTBLOCK: Provider: Vijaya King APRN.CNP Spirometry w/BD: 1 DLCO: 1 LV - Box: 1 6 MW: 1 documented in this encounter [facility] 02-26-2023 Instructions Vijaya King APRN.CNP - 02/26/2023 8:05 AM EST Welcome to [facility]'s [facility]! The 'COV' represents SARS-CoV-2, [...] one follow-up virtual visit in which all [facility] testing, imaging, and labs will be [...] your labs here today, or at any [facility], as a walk-in appointment. You do not need to fast for these labs. Labs should be completed no later than 10 days prior to our follow-up appointment. Failure to complete within that time frame may result in your follow-up visit being rescheduled. We will schedule you for our follow-up today before you leave. You may call [phone] to reach Cardiology to try to get a sooner appointment with Dr. Finley. Please call [phone] to schedule a follow-up Neurology's Neuromuscular Clinic. You may call [phone] to reach Wellness (Integrative medicine), as well as the Acupuncture Clinic and Massage Therapy Clinic. You may call [phone] to reach [facility] Speech Therapy. If you find a local facility you would prefer to use, please send me a Testive message with the facility name and phone [...] 6-8 weeks for follow-up. Patient financial services internship service: [email or web address] Can schedule a call by visiting that site or call [phone] or [phone] (toll-free). - [facility] Team documented in this encounter [facility] 02-26-2023 History of Present illness Narrative Images from the original note were not included. COVID [facility] Initial Evaluation Pastor Heller presents to [facility] at the request of Siobhan Evangelista MD [...] received the COVID Vaccine? YES. Which vaccine? [facility] COVID-19 Symptom Review Shortness of Breath or [...] of bed for 3 days Myalgias/Arthralgias Headaches [place] like a train hit me Tried Gabapentin [...] Established with the following specialists: Neuromuscular - Massiel Natarajan APRN.CNP, last seen 05/29/2022 Neurosurgery - Dr. David Rojo, last seen 02/19/2022 Cardiology - Dr. Sujit Dougherty, last seen 02/10/2023 Cardiology Syncope - Dr. Irina Finley, upcoming appt 08/17/2023 Epilepsy - Dr. Laury Magaña, last seen 03/25/2022 Neurology FMD - Dr. Prudence Jo, last seen 03/25/2022 Cardiology - [facility], Dr. Renato Mcdonald, last seen 01/15/2023 [...] which included preparing to see the patient, [id number] patient care, completing clinical documentation, obtaining and/or reviewing separately obtained history, performing a medically appropriate examination, counseling and educating the patient/family/caregiver, ordering medications, tests, or procedures, communicating with other HCPs (not separately reported), independently interpreting results (not separately reported), communicating results to the patient/family/caregiver, and care coordination (not separately reported). Rodríguez King APRN.HUE February 26, 2023 8:00 AM CC: Siobhan Evangelista MD [id number] [facility] [id number] documented in this encounter [facility] 02-12-2023 Miscellaneous Notes Called patient, scheduled PFT's [...] or palptations? Yes (Echo done 02/10 at [facility]) 4. 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 COVID [facility] Clinic intake team is not [...] have labs, testing, and consults done through [facility]; we cannot fax orders to outside facilities, and do not have acess to outside providers. Please be prepared that you may need to travel to [place] multiple times to get all testing done and see the consulted specialist(s). Please arrive 15 minutes early to your appointment and complete the questionnaires you have received via Testive ahead of time. If you are more than 10 minutes late to your appointment you may be asked to reschedule. If you have outside testing you would like to be entered into your chart, please fax it to [phone]. Records brought in same day of visit may not be reviewed until after the visit due to time constraints. documented in this encounter [facility] 11-10-2022 Miscellaneous Notes Per GABBI- Insurance plan is INN however requires auth for all services.. referrals placed Patient: Pastor Heller Date of : 1990 Patient phone number: [phone] Referring Provider for the encounter: Siobhan Evangelista Requesting Provider: SARA Reason for requesting visit (RFV/signs and symptoms/diagnosis): tachycardia Person calling: self Return call to: self Medical Records/Insurance Card scanned into Epic: Yes Comments: NA documented in this encounter [facility] 10-27-2022 Miscellaneous Notes Message sent to patient to advise that eyes look good. Instructed her to call and schedule with headache clinic as discussed. Cata Leigh RN, BSN Received medical records from [facility]. In scanned documents for review. documented in this encounter [facility] 06-23-2022 Miscellaneous Notes MRI report scanned for review but no images. Cata Leigh RN Medical records received from [facility]. Scanned documents into patient chart for review. documented in this encounter [facility] 05-29-2022 Instructions Massiel Natarajan APRN.BAKERY TEAM LEADER - 05/29/2022 4:24 PM EST 1) Labs [...] quickly and transiently. documented in this encounter [facility] 05-29-2022 History of Present illness Narrative Images from the original note were not included. 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 Was admitted and transferred to [facility], ultimately deemed to be functional in [...] Assessment & Plan 05/29/2022 - General Neurology, Massiel Natarajan, WILIAN.BAKERY TEAM LEADER ASSESSMENT Pastor Heller is a 31 year [...] which included preparing to see the patient, tozo-xu-fakj patient care, completing clinical documentation, obtaining and/or reviewing separately obtained history, counseling and educating the patient/family/caregiver, and ordering medications, tests, or procedures. Massiel Natarajan APRN.[facility] General Neurology [address] [place] [address]. [id number] Appointment: [phone] During our face to face clinical encounter [...] your PCP/referring physician documented in this encounter [facility] 04-08-2022 Miscellaneous Notes Paperwork printed and placed in PA's folder for signature. Forms Received forms via onbase from: [facility] Contact Type of Paperwork Being Requested : Plan of care signature Date Paperwork is Needed : as soon as possible documented in this encounter [facility] 03-25-2022 History of Present illness Narrative [facility] Neurological [facility] Patient Name: Pastor PORRAS Date of : 1990 Referring Provider: Massiel Natarajan [address] [place] [address] INITIAL EPILEPSY CLINIC NOTE 03/25/2022 10:00 AM CHIEF COMPLAINT: New Patient and Consult HISTORY OF PRESENT ILLNESS Ms. 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 Occurred twice total.Once, however, this led to [...] longer than normal. Transferred to neuroICU in [facility]. Evaluation ruled out emergencies. 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 -Vocation: -Education: -Cigarette, [...] which included: preparing to see the patient [id number] patient care completing clinical documentation obtaining and/or reviewing separately obtained history counseling and educating the patient/family/caregiver ordering medications, tests, or procedures Laury Magaña MD cc: Primary Care Physician: Siobhan Evangelista MD, MD [address] [facility] [address] Referring: Massiel Natarajan [address] [place], [place] [id number] Patient: Ms. Pastor Heller [address] [address] Please route this encounter to the EMU Scheduling Pool ( P EMU ) or PMU Scheduling Pool ( P PMU ) through LOS & Follow up PHASE 1.0 AND 1.5 ORDER SYNOPSIS Patient: Pastor Heller ([id number]) Best contact number: [phone] Insurance: Payor: [place] / Plan: [facility] HMO / Product Type: HMO / Scheduling Team: Please call for adult patients: Emily Juarez ([phone]) Catrachito Julien ([phone]) Janae Connelly([phone]) Albania Blanc([phone]) Please call for pediatric patients: Catrachito Julien ([phone]) Janae Connelly ([phone]) Emily Juarez ([phone]) Albania Blanc([phone]) 03/25/2022 Admission Type EMU Adult Number of Days requested 4 Location [facility] Admit Priority Routine PURPOSE 03/25/2022 Patient Being [...] off/on office visits. documented in this encounter [facility] 03-06-2022 History of Present illness Narrative UNIVERSAL PROTOCOL / SAFETY CHECKLIST [...] Finish Time: 12:01 documented in this encounter [facility] 02-27-2022 Miscellaneous Notes Patient questioning driving restrictions timeframe. Cata Leigh RN documented in this encounter [facility] 02-23-2022 Miscellaneous Notes Call to Dr. Evangelista's office, spoke to EDUARDO Singh. Discussed work restrictions listed in my note. They will assist in [employer]'s work paperwork. Call received from Dr. Siobhan Evangelista's office requesting a return call to discuss patients work restrictions. Please contact their office at [phone] documented in this encounter [facility] 02-23-2022 Miscellaneous Notes Lab results in for review. Cata Leigh RN Outside medical records received and scanned in for review documented in this encounter [facility] 02-19-2022 Instructions Lencho Unger RN - 02/19/2022 12:27 PM EST Plan: Continue to work with PT- isometric exercises: 3 months. May use a soft cervical collar occasionally for pain triggering activities CT cervical with rotation images in April documented in this encounter [facility] 02-19-2022 Miscellaneous Notes Patient now asking for a note to be out this week and clearance to work with the precautions previously listed. Cata Leigh RN documented in this encounter [facility] 02-19-2022 History of Present illness Narrative This note was created using Pansieve. Subjective Pastor Heller is a 31 year old female with a hx of migraines, depression, who presents today for a new patient evaluation of chiari. She has a long history of migraines, but started to develop a new type of headache about a year ago. She denies any trauma or inciting events. She initially managed these on her own. [place] it may be related to the way [...] also notes tingling paresthesias and loss of flight technician strength in her b/l hands since 04/2021. [...] states that she did a multi week cardiac sonographer that demonstrated tachycardia.She has also had an [...] that helps minimally. 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 She has been off of work for 1.5 months. She had an episode of syncope with subsequent temporary paralysis and was admitted to [facility] for multiple days. She also states [...] Occasional N/T arms and legs Beighton Score 09/18 MRI CTL 09/2021 reviewed 5 mm tonsillar [...] Winter Rojo MD documented in this encounter [facility] 02-19-2022 Nurse Note Additional intake questions: Has the patient had fever, nausea, vomiting, diarrhea, constipation, fatigue for > 1 week? Yes, nausea and vomiting Does the patient have a decreased appetite? No Does patient want to see a Cattle And Wheat Farmer? No (yes to any of above refer [...] Ricarda Holloway LPN documented in this encounter [facility] 02-19-2022 Miscellaneous Notes Received outside medical records from [facility] that have been scanned in and are ready for review documented in this encounter [facility] 02-18-2022 Miscellaneous Notes Answered in another [...] Epilepsy . Please advise the patient at [phone] documented in this encounter [facility] 02-17-2022 Miscellaneous Notes Received outside medical records from [facility] that have been scanned in and are ready for review. documented in this encounter [facility] 02-16-2022 Instructions Massiel Natarajan APRN.BAKERY TEAM LEADER - 02/16/2022 11:02 AM EST 1. EMG [...] such as knives. documented in this encounter [facility] 02-16-2022 History of Present illness Narrative Images from the original note were not included. [facility] for General Neurology New Patient Evaluation Chief Complaint/Issues: Pastor Heller is a 31 year old right-handed female seen in the [facility] for General Neurology for: New patient [...] Relevant Current Medications: Ivabradine 5 mg BID [place] Tizanidine Gabapentin Trileptan Nurtec Medications tried previously (failed): Midodrine 2.5 mg TID 2. Fludrocortisone 0.1 mg TID 3. Metoprolol ER 25 mg Relevant Work Up To Date Labs CBC clinically WNL CMP clinically WNL EPS Tilt ordered, pending completion MRI Brain and cervical obtained outside F CT Cervical WO 01/23/2022 IMPRESSION: 1. The [...] Plantarflexion 5/5 5/5 Movement/Coordination Finger-to- nose-finger and jpmf-ha-mdms intact bilaterally. No evidence of ataxia arms. [...] negative. Assessment & Plan 02/16/2022 - Neuromuscular, Massiel Natarajan, WILIAN.BAKERY TEAM LEADER ASSESSMENT Pastor Heller is a 31 year old here today for initial evaluation. Relevant history of chiari malformation and migraines. She follows with Dr. Rojo for her chiari. 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 Was admitted and transferred to [facility], ultimately deemed to be functional in [...] which included preparing to see the patient, pyco-qh-sjne patient care, completing clinical documentation, obtaining and/or reviewing separately obtained history, performing a medically appropriate examination, counseling and educating the patient/family/caregiver, and ordering medications, tests, or procedures. Massiel Natarajan APRN.[facility] General Neurology [address] [place] [address]. [address] Appointment: [phone] During our face to face clinical encounter [...] your PCP/referring physician documented in this encounter [facility] 01-27-2022 Miscellaneous Notes Pt called tilt [...] Pavon as well. documented in this encounter [facility] 01-22-2022 History of Present illness Narrative Seen via VV with permission CC Admitted to [facility] this am at 3:15 Lost feeling in [...] Winter Rojo MD documented in this encounter [facility] 01-21-2022 Miscellaneous Notes Received a call from patient's significant other. Gavin states that Patient had a syncopal episode and can no longer move from the neck down. He states that EMS was called and patient is en route to [facility]. This RN reviewed with Gavin the protocol for transfer- The Ed physician would need to contact the transfer line at [facility]. Gavin verbalized understanding and requested that pt's appointment be changed to Virtual Visit. This RN stated that the appointment tomorrow will be changed to virtual visit. Gavin requested that his number be called if pt could not connect to the visit. He was appreciative of call. Gavin: [phone] documented in this encounter [facility] 01-20-2022 Miscellaneous Notes Called and spoke with patient via phone. Notified patient that Dr. Rojo is unable to see pt at 7:00am on 01/23/22 virtually. Offered patient alternate appointment the day before- 3:15pm on 01/22/22 in-person. Patient accepted new appointment time and was appreciative of call. Maday in scheduling notified and appointment changed accordingly. 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 No driving on major highways) -Secondary syncope precautions discussed - tilt table test. If contributory then I will refer her to a POTS provider. If not contributory I will refer her to syncope clinic. - continue Florinef for now 2. Headaches as per her local neurologist. I suggested to stop Fioricet use 3. Referral to COVID recovery clinic SIGNATURE: Sabiha Pavon MD PATIENT NAME: Pastor Heller DATE: January 09, 2022 TIME: 9:24 AM documented in this encounter [facility] 12-30-2021 Instructions Lencho Unger RN - [...] to push the images through to the [facility] via the PACs system if they have access. 2.You can mail a physical CD of the images to our office using the following address: Dr. Rojo's Office [address] [facility]. / [address] [address] 3. You can upload a CD from home onto your [employer] by following the directions below: IMAGING CD/UPLOAD INSTRUCTIONS: You will be able to upload the CD from home by following the instructions of below link: [email or web address] If you have any questions or need further assistance in uploading the CD , please contact us via email at [email or web address]. Please let us know if you need anything further. Thank you! documented in this encounter [facility] 12-30-2021 History of Present illness Narrative This note was created using [employer]. Subjective Pastor Heller is a 31 year old female. with a hx of migraines, depression, who presents today for a new patient evaluation of chiari. She has a long history of migraines, but started to develop a new type of headache about a year ago. She denies any trauma or inciting events. She initially managed these on her own. [place] it may be related to the way [...] also notes tingling paresthesias and loss of flight technician strength in her b/l hands since 04/2021. [...] states that she did a multi week cardiac sonographer that demonstrated tachycardia.She has also had an [...] Occasional N/T arms and legs Beighton Score 09/18 MRI CTL 09/2021 reviewed 5 mm tonsillar [...] Winter Rojo MD documented in this encounter [facility] 12-30-2021 Nurse Note Additional intake questions: Has the patient had fever, nausea, vomiting, diarrhea, constipation, fatigue for > 1 week? No Does the patient have a decreased appetite? No Does patient want to see a Cattle And Wheat Farmer? No (yes to any of above refer [...] Monserrat Christian Ma documented in this encounter [facility] 12-12-2021 Progress note Note Date/Time December 12, 2021 3:15pm [place] [address] Neurology Progress Note Signed Patient: Pastor Heller MR#: [id number] : 1990 Acct:[id number] Age/Sex: 31 / F Adm Date: 2 Loc: Room: [address] [place] [address] Type: ADM INOo Attending Dr: Padmini Moreno [...] <Electronically signed by Gavin Lacey DO> 12/12/21 [address] [facility] Work Phone: 1(486) 984-391009-01-2022 History and physical note Author Padmini Moreno [facility] December 11, 2021 9:01pm Note Date/Time December 11, 2021 2:07am [facility] [address] [place] [address] Hospitalist H&P Signed with Addenda Patient: Pastor Heller MR#: [id number] : 1990 Acct:[id number] Age/Sex: 31 / F Adm Date: 2 Loc: Room: [address] [place] [address] Type: ADM INOo Attending Dr: Padmini Moreno DO Copies to: MD Sirena Giraldo, WILIAN Moreno DO~ ADDENDUM1 Patient seen and examined. She was admitted after midnight as a transfer from [facility] d/t syncopal episode with associated prodrome [...] Migraines, COVID- 19 who was transferred from [facility] due to syncopal episode. Patient reports [...] fast heart rate. She was seen by swinging cut off saw operator and is wearing a Holter monitor since 3 weeks ago. She also reports that since testing COVID-positive in April she is experiencedshortness of breath which is made worse with activity. Paperwork from [facility] was reviewed, sodium 137. Potassium 3.3. [...] History (Updated 12/11/21 @ 02:50 by Lisa Bermudez RN) CURZ (acute kidney injury) COVID-19 Migraine Surgical History [...] had COVID in April ?EKG done at [facility] showed up sinus tachycardia with a heart rate of 153 bpm. Repeat EKG here shows normal sinus rhythm 90 bpm. ?CT brain done at [facility] last last week, records requested ?Echocardiogram done 2 weeks ago at [facility], records requested ?Telemetry ?Orthostatic vitals ?D-dimer done at [facility] <150 ?Cardiology consulted ?Neurology consult Chronic conditions Migraines Chronic pain DVT prophylaxis: Negra Attending Provider Attestation Attending Physician Attestation: I personally saw this patient on the day of the encounter, reviewed the history,performed the álvarez elements of the exam, formulated the plan of care and confirmed the resident's/cisco certified internetwork expert/medical student's dictation/written note. Patient is 31-year-old female [...] 0234 <Electronically signed by Stanislav Gottlieb MD> 12/11/21 [address] [facility] Work Phone: 1(565) 257-213609-01-2022 Consult note Author Braden Ga [facility] December 11, 2021 5:30pm Note Date/Time December 11, 2021 5:30pm [facility] [address] [place] [address] Cardiology Consult Note Signed Patient: Pastor Heller MR#: [id number] : 1990 Acct:[id number] Age/Sex: 31 / F Adm Date: 2 Loc: Room: [address] [place] [address] Type: ADM INOo Attending Dr: Padmini Moreno DO Copies to: MD Braden Giraldo MD, 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 For several weeks she has been experiencing events of syncope preceded by severe migraine headache followed by tachycardia and then syncope. She has been evaluated by cardiology from [facility] and wore 3-week event monitor that was removed today. She has experience of events in the last 3 weeks but was never notified with abnormalities. She had an event yesterday where she had a classical presentation and was transferred to [facility] from [facility] facility due to bed availability. The patient did not suffer any injury. She described her events are unpredictable and under no specific circumstances. And she can always tell when the events are coming. She had only minor injury 1 time after syncope. She has been seen by Dr. Garcia from neurology and also is [facility]at the [facility] for suspected C1 problems no neck. [...] bring it up to her team from [facility] for evaluation. I did review with the patient the rhythm strips that he captured here. There was no SVT no atrial fibrillation flutter. The patient was advised to go on beta-shilpi therapy as she waits forfurther work-up from her primary swinging cut off saw operator at [facility]. Recently had an echocardiogram which was unremarkable she tells me. She is non-smoker with no alcohol abuse problems no drug abuse problems Review of Systems Review of Systems Review of systems: 11 point review of system otherwise was unremarkable [facility] Vacc[facility] for COVID-19?: Yes Medical History [...] x10E3/uL Lymph # (Auto) 2.5 (1.00-4.8) x10E3/uL Kimble # (Auto) 0.8 (0.0-0.8) x10E3/uL Eos # [...] ml @ 100 mls/hr IV ONCE ONE Rx#:[id number] Oral 240 / 490 250 / 490 [...] be evaluated as an outpatientby her primary swinging cut [facility] R00.0 - Tachycardia, unspecified (3) Episode of hypertension: Assessment/Problem Details: Could be related to pheochromocytoma in conjunction with sinus tachycardia that is also episodic. Plan: Consider outpatient pheochromocytoma work-up Code(s): I10 - Essential (primary) hypertension Documented By: Braden Ga MD, [facility] 2 1715 Signed By: <Electronically signed by MD KELSEY Ga> 12/11/21 1730 [facility] Work Phone: 1(493) 239-704609-01-2022 Consult note Author Gavin Lacey [facility] December 11, 2021 3:46pm Note Date/Time December 11, 2021 3:46pm [facility] [address] [place] [address] Neurology Consult Note Signed Patient: Pastor Heller MR#: [id number] : 1990 Acct:[id number] Age/Sex: 31 / F Adm Date: 2 Loc: Room: [address] [place] [address] Type: ADM INOo Attending Dr: Padmini Moreno DO Copies to: DO Siobhan Norowod MD Margo Simon, DO~ HPI Consult Date: 12/11/21 Sweep Press Operator: Gavin Lacey DO [facility] Vaccinated for COVID-19?: Yes Medical History [...] (1) Syncopal episodes: Assessment/Problem Details: HPI: 31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 Transferredhere for further work-up after a syncopal [...] alsobeen sent to Dr. Rojo at the [facility] regarding a Chiari I malformation. Aside [...] those MR studies were done at the [facility]. ASSESSMENT: She may have a symptomatic [...] <Electronically signed by Gavin Lacey DO> 12/11/21 1543 [facility] Work Phone: 1(320) 430-794806-13-2022 Miscellaneous Notes* Telephone Encounter - Lencho Unger [...] of call. * Telephone Encounter - Rosalina Rodriges - 09/22/2021 10:04 AM EDT General Call Caller : Pt Contact Reason for Call : Pt experiencing headaches and dizziness, states her chiari is acting up. Wants toget a sooner appt. Can pt be seen sooner? Patient requesting return call ? Yes [facility]* Patient Instructions* Samy Spivey PA-C - 09/03/2021 1:51 PM EDT If you do imaging through [employer] please mail imaging to me as below: Samy Spivey PA-C [address], [address] [facility] [address] If you do imaging through [employer], please call me at [phone], option 0 so I can get them loaded. Retroflexed odontoid Please schedule virtual visit with Dr. Winter Rojo. [facility] History of Present illness Narrative* Samy [...] She initially managed these on her own. [place] it may be related to the way [...] also notes tingling paresthesias and loss of flight technician strength in her b/l hands since 04/2021. [...] atrophy. Muscle strength 4/5 in R hand flight technician strength and R wrist flex/ex, otherwise 5/5 [...] which included preparing to see the patient, vdpl-[id number] patient care, completing clinical documentation, obtaining and/or [...] of shared medical record documented in this encounter[facility] summary Author Padmini Moreno [facility] December 12, 2021 7:36pm Note Date/Time December 12, 2021 7:36pm [facility] [address] [place] [address] Discharge Summary Signed Patient: Pastor Heller MR#: [id number] : 1990 Acct:[id number] Age/Sex: 31 / F Adm Date: 2 Loc: 3T Room: [address] [place] [address]: Padmini Moreno DO Copies to: MD Padmini Giraldo, ~ Providers Date of Discharge: 12/12/21 Discharging Provider: Padmini Moreno Primary Care Provider: Siobhan Evangelista Consults: 12/11/21 02:03 Consult to Cardiology Routine 12/11/21 02:40 Consult to Neurology Routine Discharge Diagnosis (1) Syncopal episodes: (2) Chiari I malformation: (3) Sinus tachycardia: Final Diagnosis Final Discharge Diagnosis: Same as above Summary Hospital Course Hospital course: -year-old female with a past medical history of Chiari malformation was transferred from from [facility] after presentation for syncopal episode at work. She states this is been ongoing in her eighth episode of symptoms. She describes intense headache, associated tachycardia and passing out with the episode. She has been seen by Dr. Garcia in the outpatient neurology clinic and also Dr. Rojo at the [facility] regarding Chiari I malformation. Initial concern [...] and schedule an appointment with your [facility]. Please follow up with PCP after discharge [...] <Electronically signed by Padmini Moreno DO> 12/12/211935 [facility] Work Phone: Evaluation note* Diagnosis Chiari malformation type I (HCC)- Primary Compression of brain Syringomyelia and syringobulbia (HCC) Syringomyelia and syringobulbia documented in this encounter [facility]* Diagnosis Onset Date Resolution Status Chiari I malformation acute Episode of hypertension acut e Sinus tachycardia acute Syncopal episodes acute [facility] Work Phone: Evaluation note* Diagnosis Arnold-Chiari syndrome (HCC)- Primary Spina bifida with hydrocephalus, unspecified region documented in this encounter [facility]* Diagnosis Syncope and collapse- Primary [id number] syndrome manifesting as chronic neurologic symptoms [id number] syndrome manifesting as chronic headache documented in this encounter [facility]* Diagnosis Syncope and collapse- Primary documented in this encounter [facility]* Diagnosis Transient loss of consciousness- Primary Syncope and collapse Hand weakness Other musculoskeletal symptoms referable to limbs Dysphagia, unspecified type Tachycardia Tachycardia, unspecified Orthostatic lightheadedness Dizziness and giddiness Functional movement disorder Other extrapyramidal disease and abnormal movement disorder Tremulousness Abnormal involuntary movements documented in this encounter [facility]* Diagnosis Cervical spine instability- Primary Unspecified musculoskeletal disorders and symptoms referable to neck documented in this encounter [facility]* Diagnosis Syncope and collapse- Primary documented in this encounter [facility]* Diagnosis Convulsions, unspecified convulsion type (HCC)- Primary Transient loss of consciousness Syncope and collapse documented in this encounter [facility]* Diagnosis POTS (postural orthostatic tachycardia syndrome)- Primary Tachycardia, unspecified Transient loss of consciousness Syncope and collapse Intractable migraine with aura without status migrainosus Migraine with aura, with intractable migraine, so stated, without mention of status migrainosus Positional headache Headache Arnold-Chiari malformation (HCC) Spina bifida with hydrocephalus, unspecified region documented in this encounter [facility]* Diagnosis Cardiomyopathy, nonischemic (HCC)- Primary Other primary cardiomyopathies documented in this encounter [facility]* Diagnosis Chronic systolic congestive heart failure (HCC)- Primary Chronic systolic heart failure documented in this encounter [facility]* Diagnosis SOB (shortness of breath)- Primary Shortness of breath documented in this encounter [facility]* Diagnosis SOB (shortness of breath)- Primary Shortness of breath documented in this encounter [facility]* Diagnosis SOB (shortness of breath)- [...] symptoms involving cognition documented in this encounter [facility]* Diagnosis POTS (postural orthostatic tachycardia syndrome)- Primary Tachycardia, unspecified [facility]* Diagnosis Tachycardia- Primary Tachycardia, unspecified Palpitations Post-COVID syndrome SOB (shortness of breath) Shortness of breath Other post infection and related fatigue syndromes Brain fog Atypical chest pain Other chest pain documented [facility]* Diagnosis SOB (shortness of breath)- Primary Shortness of breath documented in this encounter [facility]* Diagnosis Tachycardia- Primary Tachycardia, unspecified Palpitations Post-COVID syndrome SOB (shortness of breath) Shortness of breath Other post infection and related fatigue syndromes Brain fog Atypical chest pain Other chest pain Syncope, unspecified syncope type Other migraine without status migrainosus, not intractable Arnold-Chiari malformation (HCC) Spina bifida with hydrocephalus, unspecified region documented in this encounter [facility]* Diagnosis Chronic migraine w/o aura w/o status migrainosus, not intractable- Primary Chronic migraine without aura, without mention of intractable migraine without mention of status migrainosus Arnold-Chiari malformation (HCC) Spina bifida with hydrocephalus, unspecified region Exertional headache Headache documented in this encounter [facility]* Diagnosis Chronic migraine w/o aura w/o status migrainosus, not intractable- Primary Chronic migraine without aura, without mention of intractable migraine without mention of status migrainosus documented in this encounter [facility] noteNo assessment information availableOhiohealth [facility] Center Work Phone: Evaluation note* Diagnosis Colitis- Primary Other and unspecified noninfectious gastroenteritis and colitis RUQ pain Abdominal pain, right upper quadrant Nausea and vomiting, unspecified vomiting type Constipation, unspecified constipation type [facility] Diagnosis Need for prophylactic vaccination and inoculation against influenza- Primary [facility]* Diagnosis Terminal ileitis with complication (CMS-HCC)- Primary Constipation, unspecified constipation type RUQ pain Abdominal pain, right upper quadrant Bilateral lower abdominal pain Chronic nausea Nausea alone Early satiety [facility] Diagnosis Terminal ileitis with complication (CMS-HCC)- Primary Constipation, unspecified constipation type RUQ pain Abdominal pain, right upper quadrant Bilateral lower abdominal pain Chronic nausea Nausea alone Early satiety documented in this [facility]* Diagnosis Intractable migraine without aura and without status migrainosus- Primary Migraine without aura, with intractable migraine, so stated, without mention of status migrainosus Chiari I malformation (HCC) Compression of brain Bilateral occipital neuralgia Other syndromes affecting cervical region documented in this encounter [facility]* Diagnosis Constipation, unspecified constipation type- Primary [facility]* Diagnosis Bilateral lower abdominal pain- Primary Elevated ALT measurement Internal hemorrhoid Internal hemorrhoids without mention of complication Chronic constipation Unspecified constipation [facility]* Diagnosis Chiari I malformation (HCC) Compression of brain Intractable migraine without aura and without status migrainosus Migraine without aura, with intractable migraine, so stated, without mention of status migrainosus documented in this encounter [facility]* Diagnosis Dyspareunia in female documented in this encounter [facility]* Diagnosis Pre-op examination Pelvic pain Dyspareunia in female Recurrent UTI Urinary tract infection, site not specified documented [facility] this encounter [facility]* Diagnosis Chiari I malformation (HCC) Compression of brain Intractable migraine without aura and without status migrainosus Migraine without aura, with intractable migraine, so stated, without mention of status migrainosus [facility] Additional Instructions Please call and [facility]. Please follow up with PCP after discharge to review results of Serum metanephrines and [facility] Work Phone: InstructionsNot on filedocumented in this encounter [facility]InstructionsNot on filedocumented in this encounter [facility] SystemInstructionsNot on filedocumented in this encounter [facility] SystemInstructionsNot on filedocumented in this encounter [facility] SystemInstructionsNot on filedocumented in this encounter [facility] SystemInstructionsNot on filedocumented in this encounter [facility] SystemInstructionsNot on filedocumented in this encounter [facility] SystemReason for referral (narrative)* Diagnostic Procedure Only (Routine) - Pending Review Specialty Diagnoses / Procedures Referred By Contac t Referred To Contact XR IMAGING Diagnoses Syringomyelia and syringobulbia (HCC) Procedures XR CERVICAL 2V FLEX/EXT RADEX SPINE CERVICAL 2 OR 3 VIEWS Samy Spivey PA-C [address] [place] [address] Xr Imaging Referral ID Status Reason Start Date Expiration Date Visits Requested Visits Authorized [id number] Pending Review Auto-Generat ed Referral 09/03/2021 10/03/2022 1 1 * MRI/CT (Routine) - Pending Review Specialty Diagnoses / Procedures Referred By Contac t Referred To Contact MR IMAGING Diagnoses Syringomyelia and syringobulbia (HCC) Procedures MRI LUMBAR SPINE WO/W IVCON MRI SPINAL CANAL LUMBAR W/O & W/CONTR Samy Shafer PA-C [address] [place] [address] Mr Imaging Referral ID Status Reason Start Date Expiration Date Visits Requested Visits Authorized [id number] Pending Review Auto-Generat ed Referral 09/03/2021 10/03/2022 1 1 * MRI/CT (Routine) - Pending Review Specialty Diagnoses / Procedures Referred By Contac t Referred To Contact MR IMAGING Diagnoses Syringomyelia and syringobulbia (HCC) Procedures MRI THORACIC SPINE WO/W IVCON MRI SPINAL CANAL THORACIC W/O & W/CONTR Samy Shafer PA-C [address] [place] [address] Mr Imaging Referral ID Status Reason Start Date Expiration Date Visits Requested Visits Authorized [id number] Pending Review Auto-Generat ed Referral 09/03/2021 10/03/2022 1 1 * MRI/CT (Routine) - Pending Review Specialty Diagnoses / Procedures Referred By Contac t Referred To Contact MR IMAGING Diagnoses Syringomyelia and syringobulbia (HCC) Procedures MRI CERVICAL SPINE WO/W IVCON MRI SPINAL CANAL CERVICAL W/O & W/CONTR Samy Shafer PA-C [address] [place] [address] Mr Imaging Referral ID Status Reason Start Date Expiration Date Visits Requested Visits Authorized [id number] Pending Review Auto-Generat ed Referral 09/03/2021 10/03/2022 1 1 [place] for referral (narrative)* Outpatient Procedure (Routine) - Authorized Specialty Diagnoses / Procedures Referred By Contac t Referred To Contact [facility] [place] Diagnoses Cardiomyopathy, nonischemic (HCC) Procedures ECG COMPLETE ECG ROUTINE ECG W/LEAST 12 LDS W/I&R Sujit Dougherty MD [address] [place] [address] [facility] [place] [address] [place] [address] Referral ID Status Reason Start Date Expiration Date Visits Requested Visits Authorized [id number] Authorized Auto-Generat ed Referral 12/23/2022 12/23/2023 1 1 [place] for referral (narrative)* Outpatient Procedure (Routine) - Authorized Specialty Diagnoses / Procedures Referred By Contac t Referred To Contact [facility] [place] Diagnoses Chronic systolic congestive heart failure (HCC) Procedures ECG COMPLETE ECG ROUTINE ECG W/LEAST 12 LDS W/I&R Irina Finley DO [address] [place] [address] [facility] [place] [address] [place] [address] Referral ID Status Reason Start Date Expiration Date Visits Requested Visits Authorized [id number] Authorized Auto-Generat ed Referral 02/10/2023 02/10/2024 1 1 [facility] ([facility] Outpatient Procedure (Routine) - Authorized Specialty Diagnoses / Procedures Referred By Neva t Referred To Contact [facility] Diagnoses SOB (shortness of breath) Procedures SIX MINUTE WALK CARDIOPULMONARY EXERCISE STRESS Vijaya King APRN.BAKERY TEAM LEADER [address] [place] [address] [address] Referral ID Status Reason Start Date Expiration Date Visits Requested Visits Authorized [id number] Authorized Auto-Generat ed Referral OON/Self Pay Override 02/12/2023 03/11/2024 1 1 * Outpatient Procedure (Routine) - Authorized Specialty Diagnoses / Procedures Referred By Neva t Referred To Contact [facility] Diagnoses SOB (shortness of breath) Procedures SPIROMETRY - BASELINE AND POST DILATOR BRNCDILAT RSPSE SPMTRY PRE&POST-BRNCDILAT ADMN Vijaya King APRN.BAKERY TEAM LEADER [address] [place] [address] [address] Referral ID Status Reason Start Date Expiration Date Visits Requested Visits Authorized [id number] Authorized Auto-Generat ed Referral OON/Self Pay Override 02/12/2023 03/11/2024 1 1 * Outpatient Procedure (Routine) - Waiting for Response Specialty Diagnoses / Procedures Referred By Contac t Referred To Contact [facility] Diagnoses SOB (shortness of breath) Procedures LUNG VOLUMES PLETHYSMOGRAPHY LUNG VOLUMES W/WO AIRWAY RESIST Vijaya King APRN.BAKERY TEAM LEADER [address] [place] [address] [address] Referral ID Status Reason Start Date Expiration Date Visits Requested Visits Authorized [id number] Waiting for Response Auto-Generat ed Referral OON/Self Pay Override 02/12/2023 03/11/2024 1 1 * Outpatient Procedure (Routine) - Authorized Specialty Diagnoses / Procedures Referred By Contac t Referred To Contact [facility] Diagnoses SOB (shortness of breath) Procedures LUNG DIFFUSION CAPACITY (DLCO) DIFFUSING CAPACITY Vijaya King APRN.CNP [address] [place] [address] [facility] [place] [address] [place] [id number] Referral ID Status Reason Start Date Expiration Date Visits Requested Visits Authorized [id number] Authorized Auto-Generat ed Referral OON/Self Pay Override 02/12/2023 03/11/2024 1 1 [facility] (narrative)* Outpatient Procedure (Routine) - Authorized Specialty Diagnoses / Procedures Referred By Contac t Referred To Contact [facility] Diagnoses Tachycardia Procedures ECG COMPLETE ECG ROUTINE ECG W/LEAST 12 LDS W/I&R Irina Finley DO [address] [place] [address] [facility] [address] [address] Referral ID Status Reason Start Date Expiration Date Visits Requested Visits Authorized [id number] Authorized Auto-Generat ed Referral 08/17/2023 08/16/2024 1 1 * Transition of Care (Routine) - Ref Not Required Specialty Diagnoses / Procedures Referred By Contac t Referred To Contact [facility] Procedures CARDIOVASCULAR MEDICINE OP FOLLOW UP APPT ORDER Irina Finley DO [address] [place] [address] [facility] [place] [address] [place] [address] Referral ID Status Reason Start Date Expiration Date Visits Requested Visits Authorized [id number] Ref Not Required PCP Requested Referral 02/17/2024 08/16/2024 1 1 * Outpatient Procedure (Routine) - Authorized Specialty Diagnoses / Procedures Referred By Contac t Referred To Contact [facility] Diagnoses SOB (shortness of breath) Procedures CARDIOPULMONARY EXERCISE TEST PULMONARY STRESS TESTING Irina Finley DO [address] [place] [address] [facility] [place] [address] [place] [id number] Referral ID Status Reason Start Date Expiration Date Visits Requested Visits Authorized [id number] Authorized Auto-Generat ed Referral OON/Self Pay Override 08/17/2023 09/15/2024 1 1 [facility] N[facility]* Diagnostic Procedure Only (Routine) - Closed Specialty Diagnoses / Procedures Referred By Contac t Referred To Contact [facility] Diagnoses POTS (postural orthostatic tachycardia syndrome) [I49.8] Procedures CARDIOVASCULAR FUNCTION EVAL W/TILT TABLE W/MNTR TILT TABLE EVALUATION Sabiha Pavon MD [address] [place] [address] Neurological [place] [id number] Referral ID Status Reason Start Date Expiration Date V isits Requested Visits Authorized [id number] Closed OON/Self Pay Override 01/20/2022 07/21/2022 1 1 [facility] Summary Purpose Family History Relationship Condition Age at Onset Recorded Date/T selvin Not Specified Calculus of kidney Unknown father Autoimmune disease Unknown Relationship Condition Age at Onset Recorded Date/T selvin mother Calculus of kidney Unknown father Autoimmune disease Unknown mother Hypertension Unknown Sponge kidney Unknown Advance Directives Advance Directive Response Recorded Date/ Time Advance Directives No September 01 12:37pm Advance Directive Response Recorded Date/ Time Advance Directives No September 01 11:37am Chief Complaint and Reason for Visit Chief Complaint Syncope Reason for Visit Chiari I malformatio n Episode of hypertension Sinus tachycardia Syncopal episodes Chief Complaint Syncope syncope Reason for Visit Chiari I malformatio n Episode of hypertension Sinus tachycardia Syncopal episodes Chief Complaint Admit Date Unknown February 28, 2024 1:52pm Reason for Referral Specialty Diagnoses / Procedures Referred By Contac t Referred To Contact [facility] Diagnoses Arnold-Chiari syndrome (HCC) Procedures CONSULT TO PHYSICAL THERAPY PHYSICAL THERAPY EVALUATION HIGH COMPLEX [address] [place] [address] [place] [address] [facility] [place] [address] [place], [place] [id number] Referral ID Status Reason Start Date Expiration Date Visits Requested Visits Authorized [id number] Pending Review Auto-Generat ed Referral 12/30/2021 12/30/2022 1 1 Specialty Diagnoses / Procedures Referred By Contac t Referred To Contact [facility] Diagnoses 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 Procedures CONSULT TO [facility] [place] [address] [place] [address] [facility] [address] [place] [address] Referral ID Status Reason Start Date Expiration Date Visits Requested Visits Authorized [id number] Pending Review PCP Requested Referral 01/09/2022 01/09/2023 1 1 Specialty Diagnoses / Procedures Referred By Contac t Referred To Contact Neurology / [facility] Diagnoses Functional movement disorder Procedures CONSULT TO NEUROLOGY OFFICE/OUTPATIENT [facility] 60-74 MINUTES Massiel Natarajan, DISINTEGRATOR FEEDER.BAKERY TEAM LEADER [address] [place] [address] Neu[facility] [place] [address] [place] [address] Referral ID Status Reason Start Date Expiration Date Visits Requested Visits Authorized [id number] Authorized OON/Self Pay Override 02/16/2022 02/16/2023 1 1 Specialty Diagnoses / Procedures Referred By Contac t Referred To Contact [facility] Diagnoses Dysphagia, unspecified type Procedures CONSULT TO SPEECH THERAPY OFFICE/OUTPATIENT [facility] 60-74 MINUTES Massiel Natarajan APRN.BAKERY TEAM LEADER [address] [place] [address] [facility] [place] [address] Referral ID Status Reason Start Date Expiration Date Visits Requested Visits Authorized [id number] Pending Review Auto-Generat ed Referral 02/16/2022 02/16/2023 1 1 Specialty Diagnoses / Procedures Referred By Contac t Referred To Contact Neurology / [facility] Diagnoses Transient loss of consciousness Procedures CONSULT TO NEUROLOGY OFFICE/OUTPATIENT [facility] 60-74 MINUTES Massiel Natarajan APRN.BAKERY TEAM LEADER [address] [place] [address] [place] [address] Referral ID Status Reason Start Date Expiration Date Visits Requested Visits Authorized [id number] Authorized OON/Self Pay Override 02/16/2022 02/16/2023 1 1 Specialty Diagnoses / Procedures Referred By Contac t Referred To Contact [facility] [place] Diagnoses Transient loss of consciousness Procedures EPIL EEG LONG EEG EXTENDED MONITORING 61-119 MINUTES ELECTROENCEPHALOGRAM REC COMA/SLEEP ONLY Massiel Natarjaan APRN.BAKERY TEAM LEADER [address] [place] [address] [place] [address] Referral ID Status Reason Start Date Expiration Date Visits Requested Visits Authorized [id number] Authorized OON/Self Pay Override 02/16/2022 02/16/2023 1 1 Specialty Diagnoses / Procedures Referred By Contac t Referred To Contact [facility] [place] Diagnoses Hand weakness Procedures EMG(NEURO/NI) NERVE CONDUCTION STUDIES 9-10 STUDIES Massiel Natarajan APRN.BAKERY TEAM LEADER [address] [place] [id number] [facility] [place] [address] [place] [id number] Referral ID Status Reason Start Date Expiration Date Visits Requested Visits Authorized [id number] Authorized OON/Self Pay Override 02/16/2022 02/16/2023 1 1 Specialty Diagnoses / Procedures Referred By Contac t Referred To Contact [facility] Diagnoses Cervical spine instability Procedures CONSULT TO PHYSICAL THERAPY PHYSICAL THERAPY EVALUATION HIGH COMPLEX [address] [place] [address] [place] [id number] [facility] [place] [address] [place], [place] [id number] Referral ID Status Reason Start Date Expiration Date Visits Requested Visits Authorized [id number] Pending Review Auto-Generat ed Referral 02/19/2023 1 1 Specialty Diagnoses / Procedures Referred By Contac t Referred To Contact CT IMAGING Diagnoses Cervical spine instability Procedures CT CERVICAL SPINE WO IVCON CT CERVICAL SPINE W/[place] [address] [place] [id number] Imaging Referral ID Status Reason Start Date Expiration Date Visits Requested Visits Authorized [id number] Pending Review Auto-Generat ed Referral 2 03/21/2023 1 1 Specialty Diagnoses / Procedures Referred By Contac t Referred To Contact Neurology / [facility] Diagnoses Intractable migraine with aura without status migrainosus Positional headache Arnold-Chiari malformation (HCC) Procedures CONSULT TO NEUROLOGY OFFICE/OUTPATIENT [facility] MDM 60-74 MINUTES Massiel Natarajan, DISINTEGRATOR FEEDER.BAKERY TEAM LEADER [address] [place] [address] Neur Headache Main [address] [id number] Referral ID Status Reason Start Date Expiration Date Visits Requested Visits Authorized [id number] Authorized PCP Requested Referral OON/Self Pay Override 05/29/2022 05/29/2023 1 1 Specialty Diagnoses / Procedures Referred By Contac t Referred To Contact MR IMAGING Diagnoses Intractable migraine with aura without status migrainosus Positional headache Arnold-Chiari malformation (HCC) Procedures MRI BRAIN WO/W IVCON MRI BRAIN BRAIN STEM W/O W/CONTRAST MATERIAL Massiel Natarajan APRN.BAKERY TEAM LEADER [address] [place] [address] Mr Imaging Referral ID Status Reason Start Date Expiration Date Visits Requested Visits Authorized [id number] Authorized Auto-Generat ed Referral OON/Self Pay Override 05/29/2022 06/28/2023 1 1 Specialty Diagnoses / Procedures Referred By Contac t Referred To Contact MR IMAGING Diagnoses Intractable migraine with aura without status migrainosus Positional headache Arnold-Chiari malformation (HCC) Procedures MRV BRAIN WO/W IVCON MRA; HEAD W & WO CONTRAST Massiel Natarajan APRN.BAKERY TEAM LEADER [address] [place] [address] Mr Imaging Referral ID Status Reason Start Date Expiration Date Visits Requested Visits Authorized [id number] Authorized Auto-Generat ed Referral OON/Self Pay Override 05/29/2022 06/28/2023 1 1 Specialty Diagnoses / Procedures Referred By Contac t Referred To Contact [facility] Diagnoses Post-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 (PASC) Headaches Neck pain Chronic fatigue Neck stiffness Procedures CONSULT TO MASSAGE THERAPY OFFICE/OUTPATIENT [facility] 60-74 MINUTES Vijaya King APRN.BAKERY TEAM LEADER [address] [place] [address] [facility] [address] [place] [address] Referral ID Status Reason Start Date Expiration Date Visits Requested Visits Authorized [id number] Pending Review PCP Requested Referral OON/Self Pay Override 3 02/26/2024 1 1 Specialty Diagnoses / Procedures Referred By Contac t Referred To Contact [facility] Diagnoses Post-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 (PASC) POTS (postural orthostatic tachycardia syndrome) Headaches Neck pain Chronic fatigue Irritable bowel syndrome with constipation Brain fog Procedures CONSULT TO WELLNESS PHYSICIAN OFFICE/OUTPATIENT [facility] 60-74 MINUTES Vijaya King APRN.BAKERY TEAM LEADER [address] [place] [address] [address] Referral ID Status Reason Start Date Expiration Date Visits Requested Visits Authorized [id number] Pending Review PCP Requested Referral OON/Self Pay Override 3 02/26/2024 1 1 Specialty Diagnoses / Procedures Referred By Contac t Referred To Contact [facility] Diagnoses Post-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 (PASC) Headaches Neck pain Chronic fatigue Neck stiffness Procedures CONSULT FOR ACUPUNCTURE OFFICE/OUTPATIENT [facility] 60-74 MINUTES Vijaya King APRN.BAKERY TEAM LEADER [address] [place] [address] [address] Referral ID Status Reason Start Date Expiration Date Visits Requested Visits Authorized [id number] Pending Review PCP Requested Referral OON/Self Pay Override 3 02/26/2024 1 1 Specialty Diagnoses / Procedures Referred By Contac t Referred To Contact [facility] Diagnoses Post-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 (PASC) Brain fog Difficulty concentrating Memory changes Cognitive changes Procedures CONSULT TO SPEECH THERAPY OFFICE/OUTPATIENT [facility] 60-74 MINUTES Vijaya King APRN.BAKERY TEAM LEADER [address] [place] [address] [facility] [address] [address] Referral ID Status Reason Start Date Expiration Date Visits Requested Visits Authorized [id number] Pending Review Auto-Generat ed Referral OON/Self Pay Override 3 02/26/2024 1 1 Specialty Diagnoses / Procedures Referred By Contac t Referred To Contact Procedures CARDIOVASCULAR MEDICINE OP FOLLOW UP APPT ORDER James Pinto MD [address] [place] [address] Referral ID Status Reason Start Date Expiration Date Visits Requested Visits Authorized [id number] Ref Not Required PCP Requested Referral 06/03/2023 06/02/2024 1 1 Specialty Diagnoses / Procedures Referred By Contac t Referred To Contact [facility] Procedures CARDIOVASCULAR MEDICINE OP FOLLOW UP APPT ORDER Ferrigoberto Irina Abran, DO [address] [place] [address] [facility] [place] [address] [place] [address] Referral ID Status Reason Start Date Expiration Date Visits Requested Visits Authorized [id number] Ref Not Required PCP Requested Referral 11/03/2024 02/01/2025 1 1 Specialty Diagnoses / Procedures Referred By Contac t Referred To Contact [facility] IMAG[facility] Diagnoses Chronic migraine w/o aura w/o status migrainosus, not intractable Arnold-Chiari malformation (HCC) Exertional headache Procedures MRA BRAIN WO IVCON MRA, HEAD W/O CONTRAST Brock Wang PA-Deshaun [address] [place] [address] Mr Imaging [place] [address] Referral ID Status Reason Start Date Expiration Date Visits Requested Visits Authorized [id number] New Request Auto-Generat ed Referral 4 03/08/2025 1 1 Specialty Diagnoses / Procedures Referred By Contac t Referred To Contact MR IMAGING Diagnoses Chronic migraine w/o aura w/o status migrainosus, not intractable Arnold-Chiari malformation (HCC) Exertional headache Procedures MRI BRAIN WO/W IVCON MRI BRAIN BRAIN STEM W/O W/CONTRAST MATERIAL Brock Wang PA-Deshaun [address] [place] [address] Mr Imaging [id number] Referral ID Status Reason Start Date Expiration Date Visits Requested Visits Authorized [id number] New Request Auto-Generat ed Referral 03/08/2025 1 1 Additional Source Comments INFORMATION SOURCE (unrecogn ized section and content) DATE CREATED AUTHOR 06/23/2018 [facility] DATE CREATED AUTHOR AUTHOR'S ORGANIZ ATION 06/09/2020 [facility] DATE CREATED AUTHOR AUTHOR'S ORGANIZ ATION 06/07/2022 [facility] DATE CREATED AUTHOR AUTHOR'S ORGANIZ ATION 03/02/2024 [facility] DATE CREATED AUTHOR AUTHOR'S ORGANIZ ATION 05/16/2024 Froylan Sawant [facility] DATE CREATED AUTHOR AUTHOR'S ORGANIZ ATION 05/19/2024 [facility] DATE CREATED AUTHOR AUTHOR'S ORGANIZ ATION 07/21/2024 [facility] DATE CREATED AUTHOR AUTHOR'S ORGANIZ ATION 09/16/2024 [facility] DATE CREATED AUTHOR AUTHOR'S ORGANIZ ATION 10/04/2024 [facility] DATE CREATED AUTHOR AUTHOR'S ORGANIZ ATION 11/02/2024 [facility] EPIC Source Comments (unrecognize d section and content) In the event this informatio n is protected by the Federal Confidentiality of Alcohol and Drug Abuse Patient Records regulations: The Federal rules restrict any use of the information to criminally investigate or prosecute any alcohol or drug abuse patient.[facility] the event this information is protected by the Federal Confidentiality of Alcohol and Drug Abuse Patient Records regulations: The Federal rules restrict any use of the information to criminally investigate or prosecute any alcohol or drug abuse patient.[facility] HospitalIn the event this information is protected by the Federal Confidentiality of Alcohol and Drug Abuse Patient Records regulations: The Federal rules restrict any use of the information to criminally investigate or prosecute any alcohol or drug abuse patient.[facility] HospitalIn the event this information is protected by the Federal Confidentiality of Alcohol and Drug Abuse Patient Records regulations: The Federal rules restrict any use of the information to criminally investigate or prosecute any alcohol or drug abuse patient.[facility] HospitalIn the event this information is protected by the Federal Confidentiality of Alcohol and Drug Abuse Patient Records regulations: The Federal rules restrict any use of the information to criminally investigate or prosecute any alcohol or drug abuse patient.[facility] HospitalIn the event this information is protected by the Federal Confidentiality of Alcohol and Drug Abuse Patient Records regulations: The Federal rules restrict any use of the information to criminally investigate or prosecute any alcohol or drug abuse patient.[facility] HospitalIn the event this information is protected by the Federal Confidentiality of Alcohol and Drug Abuse Patient Records regulations: The Federal rules restrict any use of the information to criminally investigate or prosecute any alcohol or drug abuse patient.[facility] HospitalIn the event this information is protected by the Federal Confidentiality of Alcohol and Drug Abuse Patient Records regulations: The Federal rules restrict any use of the information to criminally investigate or prosecute any alcohol or drug abuse patient.[facility] HospitalIn the event this information is protected by the Federal Confidentiality of Alcohol and Drug Abuse Patient Records regulations: The Federal rules restrict any use of the information to criminally investigate or prosecute any alcohol or drug abuse patient.[facility] HospitalIn the event this information is protected by the Federal Confidentiality of Alcohol and Drug Abuse Patient Records regulations: The Federal rules restrict any use of the information to criminally investigate or prosecute any alcohol or drug abuse patient.[facility] HospitalIn the event this information is protected by the Federal Confidentiality of Alcohol and Drug Abuse Patient Records regulations: The Federal rules restrict any use of the information to criminally investigate or prosecute any alcohol or drug abuse patient.[facility] HospitalIn the event this information is protected by the Federal Confidentiality of Alcohol and Drug Abuse Patient Records regulations: The Federal rules restrict any use of the information to criminally investigate or prosecute any alcohol or drug abuse patient.[facility] HospitalIn the event this information is protected by the Federal Confidentiality of Alcohol and Drug Abuse Patient Records regulations: The Federal rules restrict any use of the information to criminally investigate or prosecute any alcohol or drug abuse patient.[facility] HospitalIn the event this information is protected by the Federal Confidentiality of Alcohol and Drug Abuse Patient Records regulations: The Federal rules restrict any use of the information to criminally investigate or prosecute any alcohol or drug abuse patient.[facility] HospitalIn the event this information is protected by the Federal Confidentiality of Alcohol and Drug Abuse Patient Records regulations: The Federal rules restrict any use of the information to criminally investigate or prosecute any alcohol or drug abuse patient.[facility] HospitalIn the event this information is protected by the Federal Confidentiality of Alcohol and Drug Abuse Patient Records regulations: The Federal rules restrict any use of the information to criminally investigate or prosecute any alcohol or drug abuse patient.[facility] HospitalIn the event this information is protected by the Federal Confidentiality of Alcohol and Drug Abuse Patient Records regulations: The Federal rules restrict any use of the information to criminally investigate or prosecute any alcohol or drug abuse patient.[facility] HospitalIn the event this information is protected by the Federal Confidentiality of Alcohol and Drug Abuse Patient Records regulations: The Federal rules restrict any use of the information to criminally investigate or prosecute any alcohol or drug abuse patient.[facility] HospitalIn the event this information is protected by the Federal Confidentiality of Alcohol and Drug Abuse Patient Records regulations: The Federal rules restrict any use of the information to criminally investigate or prosecute any alcohol or drug abuse patient.[facility] HospitalIn the event this information is protected by the Federal Confidentiality of Alcohol and Drug Abuse Patient Records regulations: The Federal rules restrict any use of the information to criminally investigate or prosecute any alcohol or drug abuse patient.[facility] HospitalIn the event this information is protected by the Federal Confidentiality of Alcohol and Drug Abuse Patient Records regulations: The Federal rules restrict any use of the information to criminally investigate or prosecute any alcohol or drug abuse patient.[facility] HospitalIn the event this information is protected by the Federal Confidentiality of Alcohol and Drug Abuse Patient Records regulations: The Federal rules restrict any use of the information to criminally investigate or prosecute any alcohol or drug abuse patient.[facility] HospitalIn the event this information is protected by the Federal Confidentiality of Alcohol and Drug Abuse Patient Records regulations: The Federal rules restrict any use of the information to criminally investigate or prosecute any alcohol or drug abuse patient.[facility] HospitalIn the event this information is protected by the Federal Confidentiality of Alcohol and Drug Abuse Patient Records regulations: The Federal rules restrict any use of the information to criminally investigate or prosecute any alcohol or drug abuse patient.[facility] HospitalIn the event this information is protected by the Federal Confidentiality of Alcohol and Drug Abuse Patient Records regulations: The Federal rules restrict any use of the information to criminally investigate or prosecute any alcohol or drug abuse patient.[facility] HospitalIn the event this information is protected by the Federal Confidentiality of Alcohol and Drug Abuse Patient Records regulations: The Federal rules restrict any use of the information to criminally investigate or prosecute any alcohol or drug abuse patient.[facility] HospitalIn the event this information is protected by the Federal Confidentiality of Alcohol and Drug Abuse Patient Records regulations: The Federal rules restrict any use of the information to criminally investigate or prosecute any alcohol or drug abuse patient.[facility] HospitalIn the event this information is protected by the Federal Confidentiality of Alcohol and Drug Abuse Patient Records regulations: The Federal rules restrict any use of the information to criminally investigate or prosecute any alcohol or drug abuse patient.[facility] HospitalIn the event this information is protected by the Federal Confidentiality of Alcohol and Drug Abuse Patient Records regulations: The Federal rules restrict any use of the information to criminally investigate or prosecute any alcohol or drug abuse patient.[facility] HospitalIn the event this information is protected by the Federal Confidentiality of Alcohol and Drug Abuse Patient Records regulations: The Federal rules restrict any use of the information to criminally investigate or prosecute any alcohol or drug abuse patient.[facility] HospitalIn the event this information is protected by the Federal Confidentiality of Alcohol and Drug Abuse Patient Records regulations: The Federal rules restrict any use of the information to criminally investigate or prosecute any alcohol or drug abuse patient.[facility] HospitalIn the event this information is protected by the Federal Confidentiality of Alcohol and Drug Abuse Patient Records regulations: The Federal rules restrict any use of the information to criminally investigate or prosecute any alcohol or drug abuse patient.[facility] HospitalIn the event this information is protected by the Federal Confidentiality of Alcohol and Drug Abuse Patient Records regulations: The Federal rules restrict any use of the information to criminally investigate or prosecute any alcohol or drug abuse patient.[facility] HospitalIn the event this information is protected by the Federal Confidentiality of Alcohol and Drug Abuse Patient Records regulations: The Federal rules restrict any use of the information to criminally investigate or prosecute any alcohol or drug abuse patient.[facility] HospitalIn the event this information is protected by the Federal Confidentiality of Alcohol and Drug Abuse Patient Records regulations: The Federal rules restrict any use of the information to criminally investigate or prosecute any alcohol or drug abuse patient.[facility] HospitalIn the event this information is protected by the Federal Confidentiality of Alcohol and Drug Abuse Patient Records regulations: The Federal rules restrict any use of the information to criminally investigate or prosecute any alcohol or drug abuse patient.[facility] HospitalIn the event this information is protected by the Federal Confidentiality of Alcohol and Drug Abuse Patient Records regulations: The Federal rules restrict any use of the information to criminally investigate or prosecute any alcohol or drug abuse patient.[facility] HospitalIn the event this information is protected by the Federal Confidentiality of Alcohol and Drug Abuse Patient Records regulations: The Federal rules restrict any use of the information to criminally investigate or prosecute any alcohol or drug abuse patient.[facility] HospitalIn the event this information is protected by the Federal Confidentiality of Alcohol and Drug Abuse Patient Records regulations: The Federal rules restrict any use of the information to criminally investigate or prosecute any alcohol or drug abuse patient.[facility] HospitalIn the event this information is protected by the Federal Confidentiality of Alcohol and Drug Abuse Patient Records regulations: The Federal rules restrict any use of the information to criminally investigate or prosecute any alcohol or drug abuse patient.[facility] HospitalIn the event this information is protected by the Federal Confidentiality of Alcohol and Drug Abuse Patient Records regulations: The Federal rules restrict any use of the information to criminally investigate or prosecute any alcohol or drug abuse patient.[facility] HospitalIn the event this information is protected by the Federal Confidentiality of Alcohol and Drug Abuse Patient Records regulations: The Federal rules restrict any use of the information to criminally investigate or prosecute any alcohol or drug abuse patient.[facility] HospitalIn the event this information is protected by the Federal Confidentiality of Alcohol and Drug Abuse Patient Records regulations: The Federal rules restrict any use of the information to criminally investigate or prosecute any alcohol or drug abuse patient.[facility] HospitalIn the event this information is protected by the Federal Confidentiality of Alcohol and Drug Abuse Patient Records regulations: The Federal rules restrict any use of the information to criminally investigate or prosecute any alcohol or drug abuse patient.[facility] HospitalIn the event this information is protected by the Federal Confidentiality of Alcohol and Drug Abuse Patient Records regulations: The Federal rules restrict any use of the information to criminally investigate or prosecute any alcohol or drug abuse patient.[facility] HospitalIn the event this information is protected by the Federal Confidentiality of Alcohol and Drug Abuse Patient Records regulations: The Federal rules restrict any use of the information to criminally investigate or prosecute any alcohol or drug abuse patient.[facility] HospitalIn the event this information is protected by the Federal Confidentiality of Alcohol and Drug Abuse Patient Records regulations: The Federal rules restrict any use of the information to criminally investigate or prosecute any alcohol or drug abuse patient.[facility] HospitalIn the event this information is protected by the Federal Confidentiality of Alcohol and Drug Abuse Patient Records regulations: The Federal rules restrict any use of the information to criminally investigate or prosecute any alcohol or drug abuse patient.[facility] HospitalIn the event this information is protected by the Federal Confidentiality of Alcohol and Drug Abuse Patient Records regulations: The Federal rules restrict any use of the information to criminally investigate or prosecute any alcohol or drug abuse patient.[facility] HospitalIn the event this information is protected by the Federal Confidentiality of Alcohol and Drug Abuse Patient Records regulations: The Federal rules restrict any use of the information to criminally investigate or prosecute any alcohol or drug abuse patient.[facility] HospitalIn the event this information is protected by the Federal Confidentiality of Alcohol and Drug Abuse Patient Records regulations: The Federal rules restrict any use of the information to criminally investigate or prosecute any alcohol or drug abuse patient.[facility] HospitalIn the event this information is protected by the Federal Confidentiality of Alcohol and Drug Abuse Patient Records regulations: The Federal rules restrict any use of the information to criminally investigate or prosecute any alcohol or drug abuse patient.[facility] HospitalIn the event this information is protected by the Federal Confidentiality of Alcohol and Drug Abuse Patient Records regulations: The Federal rules restrict any use of the information to criminally investigate or prosecute any alcohol or drug abuse patient.[facility] HospitalIn the event this information is protected by the Federal Confidentiality of Alcohol and Drug Abuse Patient Records regulations: The Federal rules restrict any use of the information to criminally investigate or prosecute any alcohol or drug abuse patient.[facility] HospitalIn the event this information is protected by the Federal Confidentiality of Alcohol and Drug Abuse Patient Records regulations: The Federal rules restrict any use of the information to criminally investigate or prosecute any alcohol or drug abuse patient.[facility] HospitalIn the event this information is protected by the Federal Confidentiality of Alcohol and Drug Abuse Patient Records regulations: The Federal rules restrict any use of the information to criminally investigate or prosecute any alcohol or drug abuse patient.[facility] HospitalIn the event this information is protected by the Federal Confidentiality of Alcohol and Drug Abuse Patient Records regulations: The Federal rules restrict any use of the information to criminally investigate or prosecute any alcohol or drug abuse patient.[facility] HospitalIn the event this information is protected by the Federal Confidentiality of Alcohol and Drug Abuse Patient Records regulations: The Federal rules restrict any use of the information to criminally investigate or prosecute any alcohol or drug abuse patient.[facility] Reason for Visit (unrecogniz ed section and content) Reason Comments Scans 1CD and reports from [facility]. CD scanned and and all given to Samy. Reason Comments New Patient Reason Comments Received Outside Medical Records [facility] MRI results rcvd. In scanned documents. Reason Comments Patient Update Reason Comments Scans 1 CD rcvd, scanned, and given to Samy from [facility]. Reason Comments Received cardiac EKG report from [employer] [facility] report via Onbase Reason Comments Established Patient Specialty Diagnoses / Procedures Referred By Neva roca Referred To Contact Neurosurgery / BRAIN TUMOR Diagnoses Chiari malformation Patient called for appt Procedures [place] [address] [place] [address] Referral ID Status Reason Start Date Expiration Date Visits Requested Visits Authorized [id number] Waiting for Response Clearance Not Met - Admin/Chair man/Directo r Advise to Postpone/Re schedule or Not Proceed 12/30/2021 03/30/2022 2 2 Reason Comments New Patient Specialty Diagnoses / Procedures Referred By Neva roca Referred To Contact [facility] Diagnoses neuro for migraines Procedures Office Visit Siobhan Evangelista MD [address] [place] [address] [facility] [place] [address] [place] [address] Referral ID Status Reason Start Date Expiration Date Visits Requested Visits Authorized [id number] Waiting for Response OON/Self Pay Override Clearance Not Met -Financial Clearance Bypassed 01/08/2022 03/09/2022 1 1 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 Specialty Diagnoses / Procedures Referred By Contac t Referred To Contact BRAIN TUMOR Diagnoses syringomyelia Procedures virtual appointment Self Winter Rojo MD [address] [phone] Referral ID Status Reason Start Date Expiration Date V isits Requested Visits Authorized [id number] Closed OON/Self Pay Override 01/01/2022 07/01/2022 1 1 Reason Comments New Patient Specialty Diagnoses / Procedures Referred By Contac t Referred To Contact ADULT NEUROLOGY Diagnoses POTS eval Referred by Librado Procedures [place] [address] [place] [address] Massiel Natarajan, DISINTEGRATOR FEEDER.BAKERY TEAM LEADER [address] [place] [address] Referral ID Status Reason Start Date Expiration Date Visits Re quested Visits Authorized [id number] Closed 02/16/2022 07/31/2022 1 1 Reason Comments Patient Question Letter request Reason Comments Received Outside Medical Records [facility] Reason Comments Established Patient Specialty Diagnoses / Procedures Referred By Contac t Referred To Contact BRAIN TUMOR Diagnoses syringomyelia Procedures virtual appointment Self Winter Rojo MD [address] [place] [address] Reason Comments Received Outside Medical Records [facility] Reason Comments Other Work restriction que stions Reason Comments Received Outside Medical Records [facility] Reason Comments New Patient Consult Specialty Diagnoses / Procedures Referred By Contac t Referred To Contact Neurology / [facility] Diagnoses Transient loss of consciousness Procedures CONSULT TO NEUROLOGY OFFICE/OUTPATIENT NEW HIGH MDM 60-74 MINUTES Massiel Natarajan, DISINTEGRATOR FEEDER.BAKERY TEAM LEADER [address] [place] [address] [facility] [place] [address] [place] [address] [place] [address] Referral ID Status Reason Start Date Expiration Date Visits Requested Visits Authorized [id number] Waiting for Response OON/Self Pay Override 02/16/2022 02/16/2023 1 1 Reason Comments Established Patient Specialty Diagnoses / Procedures Referred By Contac t Referred To Contact [facility] Diagnoses Paralysis (HCC) POTS eval Procedures follow up- post testing Massiel Natarajan, DISINTEGRATOR FEEDER.BAKERY TEAM LEADER [address] [place] [address] Massiel Natarajan, DISINTEGRATOR FEEDER.BAKERY TEAM LEADER [address] [place] [address] Referral ID Status Reason Start Date Expiration Date Visits Requested Visits Authorized [id number] Authorized OON/Self Pay Override Pending 05/27/2022 11/24/2022 2 2 Reason Comments Received outside [facility] report Reason Comments Received Outside Medical Records Reason Comments External Referrals/resources Reason [facility]. Reason Comments Spirometry Specialty Diagnoses / Procedures Referred By Contac t Referred To Contact [facility] Diagnoses SOB (shortness of breath) Procedures SPIROMETRY - BASELINE AND POST DILATOR BRNCDILAT RSPSE SPMTRY PRE&POST-BRNCDILAT ADMN Vijaya King, DISINTEGRATOR FEEDER.BAKERY TEAM LEADER [address] [place] [address] [facility] [place] [address] [place] [id number] Referral ID Status Reason Start Date Expiration Date V isits Requested Visits Authorized [id number] Closed Auto-Generate d Referral OON/Self Pay Override 02/12/2023 03/11/2024 1 1 Reason Comments Consult Specialty Diagnoses / Procedures Referred By Contac t Referred To Contact [facility] Diagnoses COVID-19 long hauler Procedures [id number] Siobhan Evangelista MD [address] [place] [address] [facility] [place] [address] [place] [id number] Referral ID Status Reason Start Date Expiration Date V isits Requested Visits Authorized [id number] Closed OON/Self Pay Override 02/12/2023 08/14/2023 1 1 Reason Comments High blood pressure CARD New Patient Consult Difficult to ma nage b/p Specialty Diagnoses / Procedures Referred By Contac t Referred To Contact [facility] [place] Diagnoses Blood pressure instability difficult to manage blood pressure Procedures new cardiology appt Self Card Appts Main [address] [place] [address] Referral ID Status Reason Start Date Expiration Date Visits Requested Visits Authorized [id number] Outside PCP OON/Self Pay Override Patient Cleared - Admin/Chair man/Directo r advise to proceed or did not respond 04/21/2023 04/20/2024 2 2 Reason Onset Date Comments Refill Request 06/25/2023 Reason Onset Date Comments Refill Request 07/01/2023 Specialty Diagnoses / Procedures Referred By Contac t Referred To Contact [facility] [place] Diagnoses Syncope and collapse Procedures NEW PATIENT VISIT LEVEL 1 Irina Finley, DO [address] [phone] Card Appts Main [address] [place] [address] Referral ID Status Reason Start Date Expiration Date V isits Requested Visits Authorized [id number] Closed OON/Self Pay Override 07/21/2023 09/20/2023 1 1 Reason Comments Appointment Specialty Diagnoses / Procedures Referred By Contac t Referred To Contact [facility] Diagnoses SOB (shortness of breath) Procedures CARDIOPULMONARY EXERCISE TEST PULMONARY STRESS TESTING Irina Finley, DO [address] [phone] [facility] [place] [address] [place] [address] Referral ID Status Reason Start Date Expiration Date V isits Requested Visits Authorized [id number] Closed Auto-Generate d Referral OON/Self Pay Override 08/17/2023 09/15/2024 1 1 Reason Comments Refill Request Specialty Diagnoses / Procedures Referred By Contac t Referred To Contact [facility] [place] Diagnoses Syncope Procedures OFFICE/OUTPATIENT EST PT MAY NOT REQ PHYS/QHP Irina Finley, DO [address] [phone] Card Appts Main [address] [place] [address] Referral ID Status Reason Start Date Expiration Date Visits Requested Visits Authorized [id number] Authorized OON/Self Pay Override Patient Cleared - INN Insurance Found 08/17/2023 11/24/2024 2 2 Reason Comments Follow Up Specialty Diagnoses / Procedures Referred By Contac t Referred To Contact [facility] Diagnoses Headaches Procedures Headache follow up Self Brock Wang PA-C [address] [phone] Referral ID Status Reason Start Date Expiration Date Visits Requested Visits Authorized [id number] Outside PCP OON/Self Pay Override 10/28/2023 02/04/2025 1 0 Reason Comments Medical Clearance Request Reason Comments Abdominal Pain ABDOMINAL PAIN & COL ITIS. REFERRED BY DR EVANGELISTA Reason Comments Flu Vaccine Reason Comments Constipation Patient is here toda y for Constipation. Patient states she has up to 12 days without a bowel movement. Patient states she also has episodes of vomiting and bloating. Patient denies other GI symptoms. Vomiting Bloated Reason Onset Date Comments Med Refill 06/20/2024 Reason Comments Migraine Occipital Pain Reason Onset Date Comments Med Refill 07/10/2024 Reason Comments Medication Reaction Patient is here toda y to discuss medication side effects. Patient denies other GI symptoms. Reason Comments Migraine Specialty Diagnoses / Procedures [facility] To Contact Diagnoses Chiari I malformation (HCC) Intractable migraine without aura and without status migrainosus Procedures PROVIDER ORDERED FOLLOW UP OFFICE/OUTPATIENT [facility] 60 MINUTES Heidi Casiano, DISINTEGRATOR FEEDER.BAKERY TEAM LEADER [address] [place] [address] Phone: tel: fax: Referral ID Status Reason Start Date Expiration Date V isits Requested Visits Authorized [id number] Closed PCP Requested Referral 09/28/2024 06/28/2025 1 1 Reason Comments Insurance Authorization Aj[employer] Reason Comments Pre-op Visit Reason Onset Date Comments Refill Request 11/08/2024 Care Teams (unrecognized sec tion and content) Agricultural Loan Officer Relationship Specialty Start Date End Date Siobhan Evangelista MD [address] [facility] [place] [address] Referring Family Practice 08/20/21 Agricultural Loan Officer Relationship Specialty Start Date End Date Siobhan Evangelista MD [address] [facility] [place] [address] Referring Family Practice 08/20/21 Agricultural Loan Officer Relationship Specialty Start Date End Date Siobhan Evangelista MD [address] [facility] [place] [address] Referring Family Practice 08/20/21 Agricultural Loan Officer Relationship Specialty Start Date End Date Siobhan Evangelista MD [address] [facility] [place] [address] Referring Family Practice 08/20/21 Agricultural Loan Officer Relationship Specialty Start Date End Date Siobhan Evangelista MD [address] [facility] [place] [address] Referring Family Practice 08/20/21 Agricultural Loan Officer Relationship Specialty Start Date End Date Siobhan Evangelista MD [address] [facility] [place] [address] Referring Family Practice 08/20/21 Team Status: Inactive Member Role Status Dates Siobhan Evangelista MD Primary Care Provider Active Stanislav Gottlieb MD Admit Provider Active Padmini Moreno , Attending Provider Active Liv Townsend MD Other Provider Active Gavin Lacey , DO Other Provider Active Team Status: Active Member Role Status Dates Siobhan Evangelista MD Primary Care Provider Active Agricultural Loan Officer Relationship Specialty Start Date End Date Siobhan Evangelista MD [address] [facility] [place] [address] Referring Family Medicine 08/20/21 Agricultural Loan Officer Relationship Specialty Start Date End Date Siobhan Evangelista MD [address] [facility] [place] [address] Referring Family Medicine 08/20/21 Agricultural Loan Officer Relationship Specialty Start Date End Date Siobhan Evangelista MD [address] [facility] [place] [address] Referring Family Medicine 08/20/21 Team Status: Inactive Member Role Status Dates PONCHO AnguloC Emergency Provider Active Siobhan Evangelista MD Primary Care Provider Active Agricultural Loan Officer Relationship Specialty Start Date End Date Siobhan Evangelista MD [address] [place] [facility] [place] [address] PCP - General Family Medicine 01/22/22 Siobhan Evangelista MD [address] [facility] [place] [address] Referring Family Medicine 08/20/21 Agricultural Loan Officer Relationship Specialty Start Date End Date Siobhan Evangelista MD [address] [facility], [facility] PCP - General Family Medicine 01/22/22 Siobhan Evangelista MD [address] [facility] [place] [address] Referring Family Medicine 08/20/21 Agricultural Loan Officer Relationship Specialty Start Date End Date Siobhan Evangelista MD [address] [place] [facility] [place] [address] PCP - General Family Medicine 01/22/22 Siobhan Evangelista MD [address] [facility] [place] [address] Referring Family Medicine 08/20/21 Agricultural Loan Officer Relationship Specialty Start Date End Date Siobhan Evangelista MD [address] [place] [facility] [place] [address] PCP - General Family Medicine 01/22/22 Siobhan Evangelista MD [address] [facility] [place] [address] Referring Family Medicine 08/20/21 Agricultural Loan Officer Relationship Specialty Start Date End Date Siobhan Evangelista MD [address] [place] [facility] [place] [address] PCP - General Family Medicine 01/22/22 Siobhan Evangelista MD [address] [facility] [place] [address] Referring Family Medicine 08/20/21 Agricultural Loan Officer Relationship Specialty Start Date End Date Siobhan Evangelista MD [address] [facility] [place] [address] PCP - General Family Medicine 01/22/22 Siobhan Evangelista MD [address] [facility] [place] [address] Referring Family Medicine 08/20/21 Agricultural Loan Officer Relationship Specialty Start Date End Date Siobhan Evangelista MD [address] [facility] [place] [address] PCP - General Family Medicine 01/22/22 Siobhan Evangelista MD [address] [facility] [place] [address] Referring Family Medicine 08/20/21 Agricultural Loan Officer Relationship Specialty Start Date End Date Siobhan Evangelista MD [address] [place] [facility] [place] [address] PCP - General Family Medicine 01/22/22 Siobhan Evangelista MD [address] [facility] [place] [address] Referring Family Medicine 08/20/21 Agricultural Loan Officer Relationship Specialty Start Date End Date Siobhan Evangelista MD [address] [facility] [place] [address] PCP - General Family Medicine 01/22/22 Siobhan Evangelista MD [address] [facility] [place] [address] Referring Family Medicine 08/20/21 Agricultural Loan Officer Relationship Specialty Start Date End Date Siobhan Evangelista MD [address] [place] [facility] [place] [address] PCP - General Family Medicine 01/22/22 Siobhan Evangelista MD [address] [facility] [place] [address] Referring Family Medicine 08/20/21 Agricultural Loan Officer Relationship Specialty Start Date End Date Siobhan Evangelista MD [address] [place] [facility] [place] [address] PCP - General Family Medicine 01/22/22 Siobhan Evangelista MD [address] [facility] [place] [address] Referring Family Medicine 08/20/21 Agricultural Loan Officer Relationship Specialty Start Date End Date Siobhan Evangelista MD [address] [place] [facility] [place] [address] PCP - General Family Medicine 01/22/22 Siobhan Evangelista MD [address] [facility] [place] [address] Referring Family Medicine 08/20/21 Agricultural Loan Officer Relationship Specialty Start Date End Date Siobhan Evangelista MD [address] [place] [facility] [place] [address] PCP - General Family Medicine 01/22/22 Siobhan Evangleista MD Referring Family Medicine 08/20/21 Agricultural Loan Officer Relationship Specialty Start Date End Date Siobhan Evangelista MD [address] [place] [facility] [address] PCP - General Family Medicine 01/22/22 Siobhan Evangelista MD Referring Family Medicine 08/20/21 Agricultural Loan Officer Relationship Specialty Start Date End Date Siobhan Evangelista MD [address] [place] [facility] [address] PCP - General Family Medicine 01/22/22 Siobhan Evangelista MD Referring Family Medicine 08/20/21 Agricultural Loan Officer Relationship Specialty Start Date End Date Siobhan Evangelista MD [address] [place] [facility] [address] PCP - General Family Medicine 01/22/22 Siobhan Evangelista MD Referring Family Medicine 08/20/21 Siobhan Evangelista MD [address] [place] [facility] [address] Referring Family Medicine 12/04/22 Agricultural Loan Officer Relationship Specialty Start Date End Date Siobhan Evangelista MD [address] [place] [facility] [address] PCP - General Family Medicine 01/22/22 Siobhan Evangelista MD Referring Family Medicine 08/20/21 Siobhan Evangelista MD [address] [place] [facility] [address] Referring Family Medicine 12/04/22 Agricultural Loan Officer Relationship Specialty Start Date End Date Siobhan Evangelista MD [address] [place] [facility] [address] PCP - General Family Medicine 01/22/22 Siobhan Evangelista MD Referring Family Medicine 08/20/21 Siobhan Evangelista MD [address] [place] [facility] [address] Referring Family Medicine 12/04/22 Agricultural Loan Officer Relationship Specialty Start Date End Date Siobhan Evangelista MD [address] [place] [facility] [address] PCP - General Family Medicine 01/22/22 Siobhan Evangelista MD Referring Family Medicine 08/20/21 Siobhan Evangelista MD [address] [facility], [facility] Referring Family Medicine 12/04/22 Agricultural Loan Officer Relationship Specialty Start Date End Date Siobhan Evangelista MD [address] [place] [facility] [address] PCP - General Family Medicine 01/22/22 Siobhan Evangelista MD Referring Family Medicine 08/20/21 Siobhan Evangelista MD [address] [place] [facility] [address] Referring Family Medicine 12/04/22 Agricultural Loan Officer Relationship Specialty Start Date End Date Siobhan Evangelista MD [address] [facility] [place] [address] PCP - General Family Medicine 01/22/22 Siobhan Evangelista MD Referring Family Medicine 08/20/21 Siobhan Evangelista MD [address] [phone] Referring Family Medicine 12/04/22 Agricultural Loan Officer Relationship Specialty Start Date End Date Siobhan Evangelista MD [address] [phone] PCP - General Family Medicine 01/22/22 Siobhan Evangelista MD Referring Family Medicine 08/20/21 Siobhan Evangelista MD [address] [place] [address]481511 Referring Family Medicine 12/04/22 Agricultural Loan Officer Relationship Specialty Start Date End Date Siobhan Evangelista MD [address] [phone] PCP - General Family Medicine 01/22/22 Siobhan Evangelista MD Referring Family Medicine 08/20/21 Siobhan Evangelista MD [address] [phone] Referring Family Medicine 12/04/22 Irina Finley DO [address] [place] [address] Primary Staff Physician Cardiology 08/17/23 Agricultural Loan Officer Relationship Specialty Start Date End Date Siobhan Evangelista MD [address] [place] [address] PCP - General Family Medicine 01/22/22 Siobhan Evangelista MD Referring Family Medicine 08/20/21 Siobhan Evangelista MD [address] [place] [address] Referring Family Medicine 12/04/22 Irina Finley DO [address] [place] [address] Primary Staff Physician Cardiology 08/17/23 Agricultural Loan Officer Relationship Specialty Start Date End Date Siobhan Evangelista MD [address] [place] [address] PCP - General Family Medicine 01/22/22 Siobhan Evangelista MD Referring Family Medicine 08/20/21 Siobhan Evangelista MD [address] [place] [address] Referring Family Medicine 12/04/22 Irina Finley DO [address] [place] [address] Primary Staff Physician Cardiology 08/17/23 Agricultural Loan Officer Relationship Specialty Start Date End Date Siobhan Evangelista MD [address] [place] [address] PCP - General Family Medicine 01/22/22 Siobhan Evangelista MD Referring Family Medicine 08/20/21 Siobhan Evangelista MD [address] [place] [address] Referring Family Medicine 12/04/22 Irina Finley DO [address] [place] [address] Primary Staff Physician Cardiology 08/17/23 Agricultural Loan Officer Relationship Specialty Start Date End Date Siobhan Evangelista MD [address] [place] [address] PCP - General Family Medicine 01/22/22 Siobhan Evangelista MD Referring Family Medicine 08/20/21 Siobhan Evangelista MD [address] [place] [address] Referring Family Medicine 12/04/22 Irina Finley DO [address] [place] [address] Primary Staff Physician Cardiology 08/17/23 Agricultural Loan Officer Relationship Specialty Start Date End Date Siobhan Evangelista MD [address] [place] [address] PCP - General Family Medicine 01/22/22 Siobhan Evangelista MD Referring Family Medicine 08/20/21 Siobhan Evangelista MD [address] [place] [address] Referring Family Medicine 12/04/22 Irina Finley DO [address] [place] [address] Primary Staff Physician Cardiology 08/17/23 Agricultural Loan Officer Relationship Specialty Start Date End Date Siobhan Evangelista MD [address] [place] [address] PCP - General Family Medicine 01/22/22 Siobhan Evangelista MD Referring Family Medicine 08/20/21 Siobhan Evangelista MD [address] [place] [address] Referring Family Medicine 12/04/22 Irina Finley DO [address] [place] [address] Primary Staff Physician Cardiology 08/17/23 Agricultural Loan Officer Relationship Specialty Start Date End Date Siobhan Evangelista MD [address] [place] [address] PCP - General Family Medicine 01/22/22 Siobhan Evangelista MD Referring Family Medicine 08/20/21 Siobhan Evangelista MD [address] [place] [address] Referring Family Medicine 12/04/22 Irina Finley DO [address] [place] [address] Primary Staff Physician Cardiology 08/17/23 Agricultural Loan Officer Relationship Specialty Start Date End Date Siobhan Evangelista MD [address] [facility] [place] [address] PCP - General Family Medicine 01/22/22 Siobhan Evangelista MD Referring Family Medicine 08/20/21 Siobhan Evangelista MD [address] [facility] [place] [address] Referring Family Medicine 12/04/22 Irina Finley DO [address] [place] [address] Primary Staff Physician Cardiology 08/17/23 Team Status: Inactive Member Role Status Dates Flaco Koo Attending Provider Active Start: February 28, 2024 End: February 28, 2024 Agricultural Loan Officer Relationship Specialty Start Date End Date Siobhan Evangelista MD [address] [place] [address] PCP - General Family Medicine 02/11/24 Agricultural Loan Officer Relationship Specialty Start Date End Date Siobhan Evangelista MD [address] [facility] [place] [address] PCP - General Family Medicine 02/11/24 Agricultural Loan Officer Relationship Specialty Start Date End Date Siobhan Evangelista MD [address] [place] [address] PCP - General Family Medicine 04/23/23 Agricultural Loan Officer Relationship Specialty Start Date End Date Siobhan Evangelista MD [address] [facility] [place] [address] PCP - General Family Medicine 02/11/24 Agricultural Loan Officer Relationship Specialty Start Date End Date Siobhan Evangelista MD [address] [facility] [place] [address] PCP - General Family Medicine 02/11/24 Agricultural Loan Officer Relationship Specialty Start Date End Date Siobhan Evangelista MD [address] [facility] [place] [address] PCP - General Family Medicine 02/11/24 Agricultural Loan Officer Relationship Specialty Start Date End Date Siobhan Evangelista MD [address] [facility] [place] [address] PCP - General Family Medicine 02/11/24 Agricultural Loan Officer Relationship Specialty Start Date End Date Siobhan Evangelista MD [address] [facility] [place] [address] PCP - General Family Medicine 02/11/24 Agricultural Loan Officer Relationship Specialty Start Date End Date Siobhan Evangelista MD [address] [facility] [place] [address] PCP - General Family Medicine 02/11/24 Agricultural Loan Officer Relationship Specialty Start Date End Date Siobhan Evangelista MD [address] [facility] [place] [address] PCP - General Family Medicine 10/07/22 Agricultural Loan Officer Relationship Specialty Start Date End Date Siobhan Evangelista MD [address] [facility] [place] [address] PCP - General Family Medicine 10/07/22 Agricultural Loan Officer Relationship Specialty Start Date End Date Siobhan Evangelista MD [address] [place] [facility] [place] [address] PCP - General Family Medicine 10/07/22 Agricultural Loan Officer Relationship Specialty Start Date End Date Siobhan Evangelista MD [address] [place] [facility] [place] [address] PCP - General Family Medicine 10/07/22 Agricultural Loan Officer Relationship Specialty Start Date End Date Soibhan Evangelista MD [address] [facility] [place] [address] PCP - General Family Medicine 01/22/22 Siobhan Evangelista MD Referring Family Medicine 08/20/21 Siobhan Evangelista MD [address] [facility] [place] [address] Referring Family Medicine 12/04/22 Irina Finley DO [address] [place] [address] Primary Staff Physician Cardiology 08/17/23 Agricultural Loan [employer] Relationship Specialty Start Date End Date Siobhan Evangelista MD [address] [place] [facility] [place] [id number] PCP - General Family Medicine 10/07/22 Goals (unrecognized section and content) Goals may be documented in a n alternate sectionNot on filedocumented as of this encounterNot on filedocumented as of this encounterNot on filedocumented as of this encounterNot on filedocumented as of this encounterNot on filedocumented as of this encounterNot on filedocumented as of this encounterNot on filedocumented as of this encounterNot on filedocumented as of this encounterNot on filedocumented as of this encounterNot on filedocumented as of this encounter FOR RECORDS PERTAINING TO PATIENTS WHO ARE [...] BE BASED ON THE PRIMARY CLINICAL RECORDS. [facility] [employer] [facility]. provides no warranty or guarantee of the accuracy or completeness of information in this document.
[2024-12-01 06:39] LABS: Hematocrit 37.3 % (36.0-48.0); Hemoglobin 12.4 g/dL (12.0-16.0); Immature Granulocytes Abs Auto 0.03 10^3/uL (0.00-0.03); Immature Granulocytes Pct Auto 0.4 % (0.0-0.5); Lymphocytes Absolute Auto 3.1 10^3/uL (1.2-3.8); Mean Corpuscular HGB Conc 33.2 g/dL (29.9-35.2); Mean Corpuscular Hemoglobin 31.2 pg (26.7-34.0); Mean Corpuscular Volume 94.0 fL (81.0-99.0); Platelet Count 233 10^3/uL (150-450); Red Blood Count 3.97 10^6/uL (4.20-5.40); White Blood Count 8.5 10^3/uL (4.0-11.0)
[2024-12-01] MEDS: SCOPOLAMINE 1 MG/3 DAYS TRANSDERM PATCH 1 PATCH TD (07:05)
[2024-12-01] MEDS: FAMOTIDINE/PF 20 MG/2 ML VIAL IV (07:07)
--- NOTE | 2024-12-01 08:43 | P.ON_ITS ---
Brief Operative Note Date of procedure: 12/01/24 Pre-op diagnosis general: pelvic pain Post-op diagnosis: same as pre-op Procedure: NAME OF PROCEDURE: [diagnostic laparoscopy lysis of omental adhesions with the ligasure] PROCEDURE: The patient was taken back to the Operating Room where she was placed in dorsal lithotomy position after given general anesthesia. The patient was prepped and draped in normal sterile fashion. A sponge stick was placed into the patient's vagina. Attention was turned to the patient's abdomen, where a small umbilical incision was made. The fascia was tented using Elsie clamps and the fascia was entered sharply. Confirmation of intraabdominal placement of the 10 mm port was confirmed under direct visualization using a laparoscope. The patient's abdomen was then insufflated using CO2 gas with approximately 4 liters. A second port was placed left laterally, this was done under direct visualization with a 5 mm port. Survey of the patient's abdomen demonstrated normal liver and gallbladder. Survey of the patient's pelvic anatomy demonstrated normal appearing rt and lt ovary and absent tubes and uterus. No endometrial implants could be noted, no evidence of any pelvic disease was seen, normal appearing pelvic cavity. lysis of omental adhesions from anterior abdominal wall using a ligasure. All instruments were removed from the patient's abdomen. The patient's abdomen was deinsufflated of CO2 gas. The patient tolerated the procedure well. Sponge stick was removed from the patient's vagina. The patient's infraumbilical fascia was closed using #0 Vicryl on a GI needle. The patient's skin was closed laterally and infraumbilically using 4-0 Vicryl. The patient tolerated the procedure well. Sponge, lap and needle counts were correct x 2. The patient was taken to Recovery Room in stable condition. Anesthesia: ANGELAA Surgeon: Hari Perez Quality Process Auditor: Dhara Romano Estimated blood loss (mL): 5 Pathology: none sent Condition: stable Disposition: PACU Urinary Catheter Management Urinary Catheter Management Urethral: Cath placed during this visit: no
[2024-12-01] MEDS: HYDROMORPHONE HCL 0.5 MG/0.5 ML SYRINGE IV (09:17)
[2024-12-01] MEDS: HYDROCODONE/ACET 5-325 MG TABLET 1 TAB PO (10:21)
== END 2024-12-01 11:12 | disposition home or self-care (01) ==
PROVIDERS: PCP Family Medicine; Visit Provider Obstetrics & Gynecology
PROC: (CPT 840; principal; 2024-12-01 07:30)
DX: N94.10 Unspecified dyspareunia (principal); R10.2 Pelvic and perineal pain; Z87.440 Personal history of urinary (tract) infections; K66.0 Peritoneal adhesions (postprocedural) (postinfection); Z90.710 Acquired absence of both cervix and uterus; Z87.891 Personal history of nicotine dependence; I10 Essential (primary) hypertension; G90.A Postural orthostatic tachycardia syndrome [POTS]; Z87.442 Personal history of urinary calculi; F41.9 Anxiety disorder, unspecified; F32.A Depression, unspecified
CPT/HCPCS: 49320; 36415; 85025; J1100; J1171; J1885; J2250; J2405; J2704; J3010; J3490

== ENCOUNTER 2025-01-24 09:18 | Outpatient (OUT) | payer MEDICAID, SELFPAY ==
[2025-01-24 10:21] LABS: Hematocrit 38.3 % (36.0-48.0); Hemoglobin 12.7 g/dL (12.0-16.0); Immature Granulocytes Abs Auto 0.04 10^3/uL (0.00-0.03); Immature Granulocytes Pct Auto 0.5 % (0.0-0.5); Lymphocytes Absolute Auto 2.4 10^3/uL (1.2-3.8); Mean Corpuscular HGB Conc 33.2 g/dL (29.9-35.2); Mean Corpuscular Hemoglobin 32.1 pg (26.7-34.0); Mean Corpuscular Volume 96.7 fL (81.0-99.0); Platelet Count 235 10^3/uL (150-450); Red Blood Count 3.96 10^6/uL (4.20-5.40); White Blood Count 8.6 10^3/uL (4.0-11.0)
[2025-01-24 11:33] LABS: Alanine Aminotransferase 25 U/L (14-59); Albumin Globulin Ratio 1.1; Albumin Level 4.3 g/dL (3.4-5.0); Alkaline Phosphatase 65 U/L (46-116); Anion Gap 14.2; Aspartate Amino Transferase <5 U/L (15-37); Blood Urea Nitrogen 11.0 mg/dL (7.0-18.0); Calcium 9.1 mg/dL (8.5-10.1); Carbon Dioxide 29.1 mmol/L (21.0-32.0); Chloride 103 mmol/L (98-107); Cholesterol 239 mg/dL (<=200); Estimated GFR (African America >60 (>=60 mL/min/1.73m^2); Estimated GFR (Non-African Ame >60 (>=60 mL/min/1.73m^2); Free T3 2.83 pg/mL (2.18-3.98); Globulin 3.8 g/dL; Glucose 90 mg/dL (74-106); HDL Cholesterol 73 mg/dL (40-60); Potassium 4.3 mmol/L (3.5-5.1); Sodium 142 mmol/L (136-145); Thyroid Stimulating Hormone 1.195 uIU/mL (0.358-3.740); Total Protein 8.1 g/dL (6.4-8.2); Triglycerides 59 mg/dL (<=150); VLDL CHOLESTEROL 11.8 mg/dL
[2025-01-25 08:18] LABS: Measles Antibodies, IgG 108.0 AU/mL (Immune >16.4); Mumps Abs, IgG 100.0 AU/mL (Immune >10.9); Rubella Antibodies, IgG 2.32 index (Immune >0.99); Varicella-Zoster V Ab, IgG Reactive (Non Reactive)
== END 2025-01-24 09:19 | disposition home or self-care (01) ==
LOC: LAB 09:19
PROVIDERS: PCP Family Medicine; Visit Provider Family Medicine
DX: Z00.00 Encounter for general adult medical examination without abnormal findings (principal)
CPT/HCPCS: 36415; 80053; 80061; 83036; 84436; 84443; 84481; 85025; 86317; 86480; 86735; 86762; 86765; 86787